=== PATIENT | male | born 1955 | race Caucasian/White ===

== ENCOUNTER 2024-07-13 19:26 | Inpatient (IN) | payer BC, SELFPAY ==
[2024-07-13 19:30] VITALS: BP 139/62; PULSE 70; RESP 16; TEMP 36.4; O2SAT 95
[2024-07-13 20:30] VITALS: BP 131/75; PULSE 74; RESP 18; TEMP 36.5; O2SAT 95
[2024-07-13 22:00] VITALS: PULSE 74; RESP 18; O2SAT 95
[2024-07-13] MEDS: Oxymetazoline 0.05% 1 SPRAY SPRAY.BTL 2 SPRAY NASAL (22:20)
[2024-07-13] MEDS: Atorvastatin Calcium 40 MG Tablet PO (22:20)
[2024-07-14 06:00] VITALS: BP 133/72; PULSE 70; RESP 16; TEMP 37.1; BMI 29.9
[2024-07-14 06:08] LABS: Absolute Lymphocyte Count 1.55 X10^3/uL (0.83-4.51); Absolute Neutrophil Count 5.2 X10^3/uL (2.0-7.7); Basophil# 0.05 X10^3/uL; Basophil% 0.6 % (0-1); Eosinophil# 0.11 X10^3/uL; Eosinophils% 1.4 % (0-5); Hematocrit 44.2 % (40-54); Hemoglobin 14.7 g/dL (13.0-16.5); Lymphocyte # 1.55 X10^3/ul (0.83-4.51); Lymphocyte % 19.6 % (19-41); Mean Corp Hgb Conc 33.3 g/dL (32-36); Mean Corpuscular Hgb 31.5 pg (27.0-32.0); Mean Corpuscular Volume 94.6 fL (80-94); Mean Platelet Vol. 10.3 fl (6.2-12.0); Monocyte# 0.98 X10^3/uL; Monocyte% 12.4 % (0-10); NRBC Flagged by Analyzer 0 % (0-5); Neutrophil # 5.17 X10^3/uL (2.7-7.7); Neutrophil % 65.5 % (47-70); Platelet Count 303 K/mm3 (150-450); RBC Distribution Width CV 12.9 % (11.6-14.6); RBC Distribution Width SD 44.9 fl (35.1-43.9); Red Blood Count 4.67 M/mm3 (4.6-6.2); White Blood Count 7.9 K/mm3 (4.4-11.0)
[2024-07-14 06:51] LABS: ALB/GLOB Ratio 0.8 RATIO (0.9-2.4); AST(SGOT) 44 U/L (15-37); Alanine Aminotransfer ALT/SGPT 76 U/L (16-61); Albumin, Serum 3.2 g/dL (3.2-5.0); Alkaline Phosphatase 239 U/L (45-117); Anion Gap 8 (5-15); BUN 30 mg/dL (7-18); BUN/Creat Ratio 26.1 RATIO (10-20); Chloride 101 mmol/L (98-107); Creatinine, Serum 1.15 mg/dL (0.70-1.30); EST Glomerular Filtration Rate 67 mL/min (>60); Est Glom Filt Rate - Afr Amer 81 mL/min (>60); Estimated Creatinine Clearance 59.77 ml/min; Globulin 4.2 g/dL (2.2-4.2); Glucose 105 mg/dL (74-106); Magnesium 2.6 mg/dL (1.6-2.6); Phosphorus 4.2 mg/dL (2.5-4.9); Potassium 4.2 mmol/L (3.5-5.1); Protein, Total 7.4 g/dL (6.4-8.2); Sodium Level 133 mmol/L (136-145)
[2024-07-14 08:31] VITALS: PULSE 70
[2024-07-14] MEDS: Enoxaparin 40 MG/0.4 ML Syringe SC (08:31)
[2024-07-14] MEDS: Lisinopril 10 MG Tablet PO (08:31)
[2024-07-14] MEDS: Clopidogrel Bisulfate 75 MG Tablet PO (08:31)
[2024-07-14] MEDS: Aspirin 81 MG TAB.CHEW PO (08:31)
[2024-07-14] MEDS: Metoprolol(XL)Succ 25 MG Tablet PO (08:31)
[2024-07-14 10:00] VITALS: PULSE 70; O2SAT 96
--- NOTE | 2024-07-14 12:16 | EX.PCM.HP.RE ---
HPI - General General Date of Admission: 07/13/24 Date of Service: 07/14/24 Chief Complaint: Post stroke debility HPI Narrative CISCO SAINI, is a 68 YO male with no significant PMH other than remote tobacco dependence (quit 1998 after 8 years of smoking) and on no RX medications who presented to an ED on 07/07/24 c/o sudden onset of R side weakness. He was unable to walk and could not lift his R arm. He had started feeling generally weak earlier in the day but,, did not have a WYATT and had no focal neurologic deficits. While in the ED his sx resolved. CT brain revealed no acute pathology. CTA of the head and neck showed no significant stenosis. Reportedly he had a very elevated troponin ( 526 initially in Ed and peaked at 646) but, EKG was negative for ischemia. Total cholesterol was 235 with an LDL of 174 and a HDL of 46. TRIG were WNL. HGBA1C was increased at 5.8%. He was started on a heparin drip and admitted to the hospital for TIA. He was also started on a statin and ASA. ECHO, MRI and cardiology consult was ordered. On 07/09/24 he reported worsening R side weakness and increased dysarthria. A repeat [place] CT brain on 07/09/24 showed a low attenuation lesion of the L periventricular white matter that was not reported on the first CT brain. MRI showed acute lacunar infarct in the L centrum semiovale. There was also a remote lacunar infarct with hemosiderin deposition in the adjacent L centrum semiovale. 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 LVEF was normal at 60%. ECHO showed no wall motion abnormalities. There was a PFO. While at [facility] he was seen by PT/OT/ST and recommendation was made for acute rehab at [place]. He was transferred to the acute inpt rehab unit at [facility] on 07/13/24 for 3 hours of therapy daily. CABG was discussed with him prior to DC from [facility] and he is to follow up with cardiology in 6-8 weeks. He has a PFO per the records we received. He did not have US of the LE's to R/O DVT but, he denied any swelling of the LE's, calf pain and hx of of DVT. Afebrile VSS -blood pressure has ranged from 131/75 to 139/62 since arrival on rehab. The heart rate is in the 70s. Maintaining appropriate oxygen saturation on RA-95% Oral intake - FOOD good Discussed with nursing - no problems that need addressed Reviewed the THERAPY notes Medication list reviewed. All lab drawn this morning was personally reviewed. CBC is unremarkable. Sodium is mildly decreased at 133 and the potassium is 4.2. The BUN is elevated at 30 with a creatinine of 1.15 and a GFR of 67. The BUN/creatinine ratio is 26.1. AST is elevated at 44, ALT is increased at 76 and the alkaline phosphatase is increased to 239. Bilirubin is within normal limits. Magnesium is 2.6 and phosphorus is normal. Calcium is normal. [facility] Medical History (Updated 07/14/24 @ 15:[address] Lorraine Meza DO) Excessive drinking alcohol CAD (coronary artery disease), [place] coronary artery Subsequent non-ST elevation (NSTEMI) myocardial infarction Ischemic cerebrovascular accident (CVA) PFO (patent foramen ovale) HTN (hypertension) HLD (hyperlipidemia) Tobacco dependence in remission Medical History no medical history Home Medications ?Medication ?Instructions ?Recorded ?Last Taken ?Type aspirin 81 mg chewable tablet 1 tab PO DAILY heart health 07/13/24 07/13/24 History atorvastatin 40 mg tablet 40 mg PO QHS cholesterol 07/13/24 07/12/24 History clopidogrel 75 mg tablet (Plavix) 75 mg PO DAILY afib 07/13/24 Unknown History lisinopril 10 mg tablet 10 mg PO DAILY blood pressure 07/13/24 07/13/24 History metoprolol succinate 25 mg 25 mg PO DAILY blood pressure 07/13/24 07/13/24 History tablet,extended release 24 hr oxymetazoline 0.05 % nasal spray 2 spray intranasal Q12H PRN 07/13/24 Unknown History (12 Hour Nasal Relief [place]) congestion Allergy/AdvReac Type Severity Reaction Status Date / Time No Known Allergies Allergy Verified 07/13/24 19:18 Family History (Updated 07/14/24 @ 13:[address] Lorraine Meza DO) Mother Alzheimer's dementia Carotid stenosis + hx of CEA Family History unable to obtain Surgical History (Updated 07/14/24 @ 13:[address] Lorraine Meza DO) History of tonsillectomy Surgical History no surgical history Social History (Updated 07/14/24 @ 13:[address] Lorraine Meza DO) household members: none housing: house number of children: 1 current occupational status: employed leisure activities: exercise Smoking Status: Former smoker Tobacco: How many years used: 8 how long ago did patient quit smoking: Smoked 1 pack/day x 8 years. Quit in 1998 alcohol intake: current alcohol intake frequency: 3 or more drinks per day Alcohol type: beer Previous attempts at quittin substance use type: does not use ROS Constitutional Constitutional: Reports weakness; Denies anorexia, change in weight, chills, fatigue, fever(s) or night sweats Eyes Eyes: Denies blurry vision, change in vision, eye pain or loss of vision ENT HEENT: Reports dysphagia; Denies abnormal hearing, headache(s), hearing loss, nasal congestion or sore throat Cardiovascular Cardiovascular: Denies chest pain, dyspnea on exertion, edema, lightheadedness, orthopnea, palpitations, paroxysmal nocturnal dyspnea or syncope Respiratory/Chest Respiratory/Chest: Denies cough, dyspnea, shortness of breath at rest, shortness of breath with exertion or wheezing Gastrointestinal Gastrointestinal: Denies abdominal pain, constipation, diarrhea, dyspepsia, hematemesis, hematochezia, nausea or vomiting Genitourinary Genitourinary: Denies dysuria, hematuria, nocturia, urinary frequency, urinary hesitancy, urinary incontinence or urinary urgency Musculoskeletal Musculoskeletal: Denies back pain, joint pain, joint swelling or neck pain Neurologic Neurologic: Reports focal weakness and paresthesias; Denies confusion, disequilibrium, dizziness, headache(s), seizures or tremor(s) Psychiatric Psychiatric: Denies anxiety, depression, homicidal ideation or suicidal ideation Endocrine Endocrinology: Denies change in body appearance, polydipsia or polyuria Hematologic/Lymphatic Hematologic/Lymphatic: Denies easy bleeding, easy bruising or lymphadenopathy Allergic/Immunologic Allergic/Immunologic: Denies rhinitis, eczemia or asthma Vital Signs Vital Signs Vital Signs: 07/13/24 19:30 07/13/24 20:30 07/13/24 22:00 Temperature 97.6 F L 97.7 F L Temperature Source Temporal Oral Pulse Rate 70 74 74 Pulse Strength Respiratory Rate 16 18 18 Respiratory Effort Normal Non-Labored Respiratory Depth Normal Respiratory Pattern Normal Blood Pressure 139/62 H 131/75 H Blood Pressure Mean 87 93 Blood Pressure Source Monitor Monitor Blood Pressure Position Semi-Fowlers Semi-Fowlers Blood Pressure Location Right Arm Left Arm Pulse Ox 95 95 95 Oxygen Delivery Method Room Air Room Air Room Air 07/14/24 06:00 07/14/24 08:13 07/14/24 08:31 Temperature 98.7 F Temperature Source Oral Pulse Rate 70 70 Pulse Strength Respiratory Rate 16 Respiratory Effort Respiratory Depth Respiratory Pattern Blood Pressure 133/72 H Blood Pressure Mean 92 Blood Pressure Source Monitor Blood Pressure Position Semi-Fowlers Blood Pressure Location Left Arm Pulse Ox Oxygen Delivery Method Room Air Room Air 07/14/24 10:11 Temperature Temperature Source Pulse Rate Pulse Strength Normal (2+) Respiratory Rate Respiratory Effort Respiratory Depth Respiratory Pattern Blood Pressure Blood Pressure Mean Blood Pressure Source Blood Pressure Position Blood Pressure Location Pulse Ox Oxygen Delivery Method Weight Weight: 180 lb 1.883 oz Body Mass Index (BMI) 29.9 Indicators for Scoring Admitted with or Primary Diagnosis of CVA/Stroke: Yes Hx of CVA/Stroke: Yes Modified [place] Score MRS Score at time of Evaluation: 4-Moderate/severe disability NIHSS NIHSS 1a. Level of Consciousness: Alert; keenly responsive 1b. LOC Questions: Answers BOTH questions correctly. 1c. LOC Commands: Performs both tasks correctly. 2. Best Gaze: Normal 3. Visual: No visual loss 4. Facial Palsy: Complete paralysis of one or both sides (R side. Can not tightly close the R eye and eyebrows do not elevate symmetrically) 5a. Left Arm: No drift; arm holds 90 (or 45) degrees for full 10 seconds 5b. Right Arm: No effort against gravity; arm falls 6a. Left Leg: No drift; leg holds 30-degree position for full 5 seconds 6b. Right Leg: Some effort against gravity; (hits bed) 7. Limb Ataxia: Absent (can not test R side due to profound weakness) 8. Sensory: [id number] sensory loss; (Decreased sensation in the RUE only) 9. Best Language: No aphasia; normal 10. Dysarthria: [id number] dysarthria; 11. Extinction and Inattention: No abnormality Total: 10 Stroke Questions Stroke Team Activated: No Physical Exam Const alert, oriented x3, no apparent distress and well nourished General Appearance: cooperative and well developed Orientation / Consciousness: Negative for confused HEENT normocephalic and head/scalp atraumatic HEENT Narrative: kartik has a white coating. He denies mouth pain and painful swallowing. No bad taste in his mouth Mouth: dry mucous membranes Eyes PERRL and EOMs intact bilaterally Eyes Narrative: No scleral icterus, no conjunctival injection, no discharge from the eyes, no mattering of the eyelashes. No visual field cuts. Neck No nodes and no carotid bruits Neck Narrative: Carotids have brisk upstroke and good pulse volume bilaterally General: trachea midline Resp normal respiratory effort Resp Narrative: Initially had a few coarse crackles in the bases posteriorly however after few breaths he was clear to auscultation. No conversational dyspnea. Cardio regular rate, regular rhythm, S1 normal heart sound, S2 normal heart sound, no murmurs, no rub and no gallops Cardio Narrative: No ectopy GI normal to inspection, nondistended, normoactive bowel sounds, soft to palpation and non-tender GI Narrative: No abdominal bruits Extremity normal capillary refill and no calf tenderness General Extremity: Negative for clubbing, cyanosis or edema Skin Skin Narrative: Has a few small erythematous areas on the buttocks/sacrum and the nurses have started Calmoseptine. General Skin Exam: no breakdown Rashes: no rashes Wounds: Negative for wounds noted Neuro Neuro Narrative: Has paralysis of the upper and lower right face. Lower face is more prominent than the upper face. The tongue deviates mildly to the right. Pupils are equal round and reactive to light. No visual field cuts. Intact sensation in the face. Was unable to do finger-nose or [id number] with the right side extremities due to profound weakness. No effort against gravity with the right upper extremity. Some effort against gravity with the right lower extremity however it hits the bed before count of 5. Negative for extinction. He has decreased sensation in the right upper extremity but sensation is intact everywhere else. He has moderate dysarthria and some drooling from the right corner of his mouth. No aphasia. Psych thought process normal, cooperative, affect normal and denies suicidal ideation Psych Narrative: Calm and makes good eye contact. Pleasant and talkative. Asked appropriate questions. Good modulation of his voice. Appearance: appropriate Attitude: No agitated Results Lab / Micro Data 07/14/24 05:51 07/14/24 05:51 Labs: Laboratory Results - last 24 hr 07/14/24 05:51: WBC 7.9, RBC 4.67, Hgb 14.7, Hct 44.2, MCV 94.6 H, MCH 31.5, MCHC 33.3, RDW Std Deviation 44.9 H, RDW Coeff of Nicole 12.9, Plt Count 303, MPV 10.3, Immature Gran % (Auto) 0.500, Neut % (Auto) 65.5, Lymph % (Auto) 19.6, [place] % (Auto) 12.4 H, Eos % (Auto) 1.4, Baso % (Auto) 0.6, Absolute Neuts (auto) 5.2, Absolute Lymphs (auto) 1.55, Nucleated RBC % 0, Sodium 133 L, Potassium 4.2, Chloride 101, Carbon Dioxide 24.0, Anion Gap 8, BUN 30 H, Creatinine 1.15, Estim Creat Clear Calc 59.77, Est GFR (MDRD) Af Amer 81, Est GFR (MDRD) Non-Af 67, BUN/Creatinine Ratio 26.1 H, Glucose 105, Calcium 9.0, Phosphorus 4.2, Magnesium 2.6, Total Bilirubin 0.90, AST 44 H, ALT 76 H, Alkaline Phosphatase 239 H, Total Protein 7.4, Albumin 3.2, Globulin 4.2, Albumin/Globulin Ratio 0.8 L Assessment & Plan Assessment/Plan (1) Physical debility: (2) Ischemic cerebrovascular accident (CVA): (3) Dysarthria: (4) Right hemiparesis: (5) Subsequent non-ST elevation (NSTEMI) myocardial infarction: (6) CAD (coronary artery disease), [place] coronary artery: QUALIFIERS: [place] vs. transplanted heart: [place] heart Associated angina: without angina Qualified Code(s): I25.10 - Atherosclerotic heart disease of [place] coronary artery without angina pectoris (7) Tobacco dependence in remission: (8) HLD (hyperlipidemia): QUALIFIERS: Hyperlipidemia type: pure hypercholesterolemia Qualified Code(s): E78.00 - Pure hypercholesterolemia, unspecified (9) HTN (hypertension): QUALIFIERS: Hypertension type: primary hypertension Qualified Code(s): I10 - Essential (primary) hypertension (10) PFO (patent foramen ovale): (11) Hyponatremia: (12) Abnormal LFTs: (13) Dehydration symptoms: PLAN: Plan PLAN PT for gait stability OT for ADL's ST for evaluation Analgesics as needed Bowel protocol Fall precautions Assess for Anxiety/Depression GI prophylaxis -not at this time. He has no nausea, vomiting, heartburn or epigastric pain and denies any history of peptic ulcer disease. DVT prophylaxis with Lovenox Follow up with PCP, cardiology, cardiothoracic surgery and neurology following DC from [facility] Rehab AM lab including CMP, CBC, Mag and Phos-all personally reviewed. NS at 100cc/hr for 2 liters due to dehydration, hyponatremia, increased BUN/CREAT ratio and c/o muscle cramping. Charges/Coding Visit Charges Inpatient E&M: 00919 Init Hosp L3
[2024-07-14] MEDS: Acetaminophen 325 MG Tablet 650 MG PO (13:59)
--- NOTE | 2024-07-14 15:31 | REHABEVAL_ITS ---
Admission Information Primary Diagnosis:: Post stroke debility Status Changes from Prescreening?: No changes Identified Actual Problem List:: Skin Intergrity, Alteration in Sleep, Mobility Impaired, Self Care Deficit, Know.Dfct/Disease Process, BP, Hypertension, Fluid Change- Dehydration and Alteration-Leisure Activ. Potential Problem List:: DVT, Bleeding, Infection, UTI, Aspiration, Falls, Skin Integrity and Depression Risk of Complications DVT: GERALDINE Hose and - (Lovenox) Bleeding: Monitor Lab Values, Nursing to Teach Precautions for anti-coagulation therapy., Wound, if applicable, to be assessed every shift. and Stroke patients assessed for lethargy or change in status. Infection: Clinical Staff to Monitor for S/S of infection: and S/S of infection include fever, redness, warmth, etc. Urinary Tract Infection: Monitor for frequency, burning, discomfort, or incontinence. and Nursing will obtain urine sample for urinalysis and C&S when ordered. Aspiration: Clinical staff will monitor for coughing, drooling, congestion., Speech will evaluate swallowing and dsyphasia. and Nursing will monitor patient swallowing during meals. Falls: Patient will be evaluated for Fall Precautions and Patient will be placed on Fall Precautions as indicated per protocol. Skin Breakdown: Nursing will assess skin daily using assessment tool. and Nursing will place on Skin Breakdown Precautions as indicated. Pain: Clinical staff will assess patient's pain level per protocol., Medications will be given, if needed, and the pain level reassessed. and Other methods: Massage, distraction, decrease stimulus, etc. used PRN. Plan of Care Patient requires physician specializing in physical medicine and rehab oversight to provide close medical supervision of rehab issues including: Pain Management, Sleep Problems, Bowel and Bladder, Medical and co-morbidity Management, DVT prophylaxis, Rehabilitation Leadership and Coordination of treatment team Patient needs Physical Therapy: For a minimum of 1 hour and At least 5 out of 7 days Patient needs Physical Therapy to improve:: Mobility, Strengthening, Transfers, Stretching, ROM, Endurance, Stairs, Gait and Balance Patient needs Occupational Therapy: For a minimum of 1 hour and At least 5 out of 7 days Patient needs Occupational Therapy to improve ADL's incl.: Eating, Grooming, Bathing, Dressing, Toileting, Toilet transfers, Community Reintegration, Higher functioning activities, Household tasks, Adaptive Equipment, Splinting and Other activities as determined Patient requires speech therapy: For a minimum of 1 hour and At least 5 out of 7 days Patient requires speech therapy for: Swallowing, Cognition, Language Skills and Compensatory Strategies Patient requires 24/ Rehabilitation Nursing for: Pain Issues, Identifying and preventing risk factors, Monitoring and reporting current medical conditions, Assisting with ambulation, transfer, and all ADL's, Teaching patients about disease process and medications, Family teaching, Providing safe environment, Bowel and Bladder Issues, Skin integrity and Medication Management Patient needs Automobile Spring Repairer/ Case Management for: Discharge Planning, Arranging Home Equipment or Services and Family Interventions Patient needs Dietary and Nutrition Services for: Adequate Nutrition, Nutritional Supplements and Nutritional Education Goals Goals Patient will remain: free from falls Patient will perform eating at: MOD I level of assist. Patient will perform bed mobility at: MOD I level of assist. Patient will complete transfers from bed to chair at: MOD I level of assist. Patient will ambulate: - (165 feet with least restrictive device at standby assist) Patient will complete upper body dressing at: Standby Assist. Patient will complete lower body dressing at: Standby Assist. (With adaptive equipment as needed.) Patient will complete toilet transfer at: Standby Assist. Patient will complete toileting at: Standby Assist. Patient will perform bathing at: - (Upper body bathing at min assist and lower body bathing at standby assist with adaptive equipment as needed.) Patient will perform Tub/Shower transfer at: - (Supervision using DME as needed to increase independence.) Patient will complete grooming at: - (Set up level while seated at the sink.) Patient will achieve: 12 stairs (With 1 handrail and the least restrictive device at standby assist to allow access to his basement/laundry.) Patient will have pain level of: of 3 or less Patient's skin will: remain intact Patient will receive: adequate nutrition. Discharge Planning Pt Prognosis for Sig. Practical Improv. w/in Reasonable Time: Good Estimated Length of stay (days): 28 Anticipated D/C Destination: Home w/ family or friends (With home health care) Was Preadmission Assessment Accurate?: Yes
[2024-07-14] MEDS: 0.9% Saline Lock 10 ML Syringe IV (15:50)
[2024-07-14] MEDS: 0.9% Normal Saline (1000mL) 1,000 ML 100 ML IV (15:59)
[2024-07-14] MEDS: Menthol/Lanolin/Calamine/Znox 113 GM Tube 1 APPLIC TOPICAL ×2 (16:00→21:23)
[2024-07-14 16:02] VITALS: BMI 29.9
[2024-07-14 18:00] VITALS: BP 122/72; PULSE 72; RESP 1; TEMP 36.6; O2SAT 97
[2024-07-14] MEDS: Loperamide 2 MG Capsule PO (20:22)
[2024-07-14] MEDS: Atorvastatin Calcium 40 MG Tablet PO (21:20)
[2024-07-15 01:55] VITALS: BMI 29.9
[2024-07-15] MEDS: 0.9% Normal Saline (1000mL) 1,000 ML 100 ML IV (02:18)
[2024-07-15] MEDS: Enoxaparin 40 MG/0.4 ML Syringe SC (05:40)
[2024-07-15 06:00] VITALS: BP 136/92; PULSE 75; RESP 18; TEMP 36.7; O2SAT 94
[2024-07-15 08:29] VITALS: PULSE 72
[2024-07-15] MEDS: Aspirin 81 MG TAB.CHEW PO (08:29)
[2024-07-15] MEDS: Clopidogrel Bisulfate 75 MG Tablet PO (08:29)
[2024-07-15] MEDS: Metoprolol(XL)Succ 25 MG Tablet PO (08:29)
[2024-07-15] MEDS: Lisinopril 10 MG Tablet PO (08:30)
[2024-07-15] MEDS: Menthol/Lanolin/Calamine/Znox 113 GM Tube 1 APPLIC TOPICAL ×2 (08:31→20:38)
[2024-07-15 08:35] VITALS: BP 119/71
[2024-07-15 12:42] VITALS: BMI 29.9
[2024-07-15] MEDS: 0.9% Saline Lock 10 ML Syringe IV (13:19)
[2024-07-15 18:00] VITALS: BP 117/67; PULSE 56; RESP 16; TEMP 36.6; O2SAT 96
[2024-07-15] MEDS: Atorvastatin Calcium 40 MG Tablet PO (20:38)
[2024-07-15 20:47] VITALS: BMI 29.9
[2024-07-15 22:00] VITALS: PULSE 55; RESP 16; O2SAT 95
[2024-07-16] MEDS: Enoxaparin 40 MG/0.4 ML Syringe SC (05:05)
[2024-07-16 05:13] VITALS: BP 133/70; PULSE 64; RESP 17; TEMP 36.6; O2SAT 95
[2024-07-16] MEDS: 0.9% Saline Lock 10 ML Syringe IV (05:17)
[2024-07-16] MEDS: Lisinopril 10 MG Tablet PO (07:50)
[2024-07-16 07:51] VITALS: PULSE 73
[2024-07-16] MEDS: Aspirin 81 MG TAB.CHEW PO (07:51)
[2024-07-16] MEDS: Clopidogrel Bisulfate 75 MG Tablet PO (07:51)
[2024-07-16] MEDS: Metoprolol(XL)Succ 25 MG Tablet PO (07:51)
[2024-07-16] MEDS: Menthol/Lanolin/Calamine/Znox 113 GM Tube 1 APPLIC TOPICAL ×2 (07:53→21:01)
[2024-07-16 14:08] VITALS: BMI 29.9
[2024-07-16 17:46] VITALS: O2SAT 94
[2024-07-16 18:00] VITALS: BP 110/67; PULSE 62; RESP 17; TEMP 36.6; O2SAT 94
[2024-07-16 20:36] VITALS: BMI 29.9
[2024-07-16] MEDS: Atorvastatin Calcium 40 MG Tablet PO (21:02)
[2024-07-16 22:00] VITALS: PULSE 62; RESP 16; O2SAT 96
[2024-07-17] MEDS: Enoxaparin 40 MG/0.4 ML Syringe SC (05:27)
[2024-07-17] MEDS: 0.9% Saline Lock 10 ML Syringe IV (05:28)
[2024-07-17 06:00] VITALS: BP 124/68; PULSE 54; RESP 16; TEMP 36.5; O2SAT 93
[2024-07-17 07:24] VITALS: O2SAT 93
[2024-07-17 07:43] VITALS: BP 124/68; PULSE 64
[2024-07-17] MEDS: Metoprolol(XL)Succ 25 MG Tablet PO (07:43)
[2024-07-17] MEDS: Lisinopril 10 MG Tablet PO (07:43)
[2024-07-17] MEDS: Clopidogrel Bisulfate 75 MG Tablet PO (07:43)
[2024-07-17] MEDS: Aspirin 81 MG TAB.CHEW PO (07:43)
[2024-07-17] MEDS: Menthol/Lanolin/Calamine/Znox 113 GM Tube 1 APPLIC TOPICAL ×2 (07:44→21:29)
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
[2024-07-17 13:04] VITALS: BMI 29.9
--- NOTE | 2024-07-17 13:07 | CASEMGMT ---
Social Work IDT met with patient and participated via phone call for Team meeting. Discussed patient's progress in PT/OT/ST/SN. Educated to [facility] insurance with NRD 8/ and continued stay is not guaranteed with each review. Pt was mod I prior to stroke, working full-time, and living alone. Pt's goal is to return closer to PLOF prior to DC. SW educated to Stroke Support Group and provided resources. SW will continue to follow for DC planning and support. Will ReTeam weekly. ESTELA AskewW
[2024-07-17 17:15] VITALS: BP 114/75; PULSE 67; RESP 17; TEMP 36.3; O2SAT 92
[2024-07-17] MEDS: Atorvastatin Calcium 40 MG Tablet PO (21:24)
[2024-07-17 23:29] VITALS: BMI 29.9
[2024-07-18 06:00] VITALS: BP 155/76; PULSE 65; RESP 17; TEMP 36.2; O2SAT 95
[2024-07-18] MEDS: Enoxaparin 40 MG/0.4 ML Syringe SC (06:32)
[2024-07-18 07:32] VITALS: PULSE 65
[2024-07-18] MEDS: Clopidogrel Bisulfate 75 MG Tablet PO (07:32)
[2024-07-18] MEDS: Aspirin 81 MG TAB.CHEW PO (07:32)
[2024-07-18] MEDS: Metoprolol(XL)Succ 25 MG Tablet PO (07:32)
[2024-07-18] MEDS: Menthol/Lanolin/Calamine/Znox 113 GM Tube 1 APPLIC TOPICAL ×2 (07:32→20:37)
[2024-07-18] MEDS: Lisinopril 10 MG Tablet PO (07:32)
[2024-07-18 08:02] LABS: Hematocrit 44.9 % (40-54); Hemoglobin 15.2 g/dL (13.0-16.5)
[2024-07-18 11:50] VITALS: BMI 29.9
[2024-07-18 11:52] LABS: ALB/GLOB Ratio 0.8 RATIO (0.9-2.4); AST(SGOT) 37 U/L (15-37); Alanine Aminotransfer ALT/SGPT 98 U/L (16-61); Albumin, Serum 3.3 g/dL (3.2-5.0); Alkaline Phosphatase 233 U/L (45-117); Anion Gap 10 (5-15); BUN 18 mg/dL (7-18); BUN/Creat Ratio 15.9 RATIO (10-20); Calcium,Total 10.1 mg/dL (8.5-10.1); Chloride 103 mmol/L (98-107); Creatinine, Serum 1.13 mg/dL (0.70-1.30); EST Glomerular Filtration Rate 68 mL/min (>60); Est Glom Filt Rate - Afr Amer 83 mL/min (>60); Estimated Creatinine Clearance 60.72 ml/min; Glucose 121 mg/dL (74-106); Protein, Total 7.3 g/dL (6.4-8.2); Sodium Level 136 mmol/L (136-145)
--- NOTE | 2024-07-18 12:04 | PN_ITS ---
Subjective Subjective Waldemar was seen on team rounds. His ex participated by phone. His son was unavailable to participate. Afebrile VSS -blood pressure is now within goal. Maintaining appropriate oxygen saturation on RA Oral intake - FOOD good FLUIDS good Discussed with nursing - no problems that need addressed Reviewed the THERAPY notes He is able to shrug the R shoulder today. Less facial droop. Able to do 3 hours a day of therapy. Working hard and making progress. Medication list reviewed. All lab was personally reviewed. Hemoglobin is 15.2 today with hematocrit of 44.9. Sodium is now normal at 136 and the potassium is stable at 4.0. The BUN is down to 18 with a stable creatinine of 1.13. AST is normal at 37 but the ALT is 98 and the alkaline phosphatase is 233. Bilirubin is normal. Waldemar denies shortness of breath, cough, cephalgia, lightheadedness, chest pain, palpitations, nausea/vomiting/abdominal pain, dysuria and calf tenderness. Objective Data Objective Data Vital Signs: Vital Signs Temp Pulse Resp BP Pulse Ox O2 Del Method 97.1 F L 65 17 155/76 H 95 Room Air 07/18/24 06:00 07/18/24 07:32 07/18/24 06:00 07/18/24 06:00 07/18/24 06:00 07/18/24 06:00 Oxygen Delivery Method Room Air Weight: 180 lb 1.883 oz Body Mass Index (BMI) 29.9 Intake & Output: Intake and Output for Last 24 Hours 07/16/24 07/17/24 07/18/24 23:59 23:59 23:59 Intake Total 1570 / 1570 2550 / 2850 570 / 570 Output Total 1850 / 1850 2800 / 3200 1150 / 1150 Balance -280 / -280 -250 / -350 -580 / -580 Lab / Micro Data 07/18/24 07:49 07/18/24 07:49 Labs: Laboratory Results - last 24 hr 07/18/24 07:49: Hgb 15.2, Hct 44.9, Sodium 136, Potassium 4.0, Chloride 103, Carbon Dioxide 23.0, Anion Gap 10, BUN 18, Creatinine 1.13, Estim Creat Clear Calc 60.72, Est GFR (MDRD) Af Amer 83, Est GFR (MDRD) Non-Af 68, BUN/Creatinine Ratio 15.9, Glucose 121 H, Calcium 10.1, Total Bilirubin 0.60, AST 37, ALT 98 H, Alkaline Phosphatase 233 H, Total Protein 7.3, Albumin 3.3, Globulin 4.0, A lbumin/Globulin Ratio 0.8 L Physical Exam Const alert, oriented x3 and no apparent distress Constitutional Narrative: Sitting in the recliner at the bedside. Pleasant and appropriate. Makes good eye contact with me when we speak. General Appearance: cooperative HEENT head/scalp atraumatic Mouth: dry mucous membranes Eyes Eyes Narrative: The R eye is not as droopy. Less facial droop. Able to close the R eye with more force. PERRL, EOMI, no visual field cuts. Neck supple Resp normal respiratory effort and clear to auscultation bilaterally Resp Narrative: No cough with deep breathing. Effort and Inspection: Negative for tachypneic Cardio regular rate, regular rhythm, no murmurs, no rub and no gallops Cardio Narrative: No ectopy GI normal to inspection, nondistended, normoactive bowel sounds, soft to palpation and non-tender GI Narrative: No guarding with palpation. Good appetite. Extremity no calf tenderness Extremity Narrative: mild edema of the fingers of the R hand. No ankle edema. 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 transplanted heart: [place] heart A ssociated angina: without angina Qualified Code(s): I25.10 - Atherosclerotic heart disease of [place] coronary artery without angina pectoris (8) Tobacco dependence in remission: (9) HLD (hyperlipidemia): QUALIFIERS: Hyperlipidemia type: pure hypercholesterolemia Q ualified Code(s): E78.00 - Pure hypercholesterolemia, unspecified (10) HTN (hypertension): QUALIFIERS: Hypertension type: primary hypertension Qualified Code(s): I10 - Essential (primary) hypertension (11) PFO (patent foramen ovale): (12) Hyponatremia: (13) Abnormal LFTs: PLAN: Plan !. Continue therapy...Making good progress in a short amount of time. 2. Continue dual antiplatelet agents and high intensity statin. 3. Will need a 30 day event monitor at DC. 4. will follow up with cardiology post DC from rehab. Needs CABG but, can not do surgery for at least 6 weeks after [place] and stroke. Charges/Coding Visit Charges Inpatient E&M: 28120 Subs Hosp L2
[2024-07-18 17:28] VITALS: BP 122/77; PULSE 57; RESP 18; TEMP 36.6; O2SAT 96
[2024-07-18] MEDS: Atorvastatin Calcium 40 MG Tablet PO (20:31)
[2024-07-19 05:20] VITALS: BP 108/72; PULSE 61; RESP 15; TEMP 36.5; O2SAT 94
[2024-07-19] MEDS: Enoxaparin 40 MG/0.4 ML Syringe SC (05:37)
[2024-07-19 08:14] VITALS: BP 108/72; PULSE 61
[2024-07-19] MEDS: Metoprolol(XL)Succ 25 MG Tablet PO (08:14)
[2024-07-19] MEDS: Clopidogrel Bisulfate 75 MG Tablet PO (08:14)
[2024-07-19] MEDS: Lisinopril 10 MG Tablet PO (08:14)
[2024-07-19] MEDS: Aspirin 81 MG TAB.CHEW PO (08:14)
[2024-07-19] MEDS: Menthol/Lanolin/Calamine/Znox 113 GM Tube 1 APPLIC TOPICAL ×2 (08:15→20:55)
[2024-07-19 15:33] VITALS: BMI 29.9
[2024-07-19 18:00] VITALS: BP 94/70; PULSE 66; RESP 15; TEMP 36.6; O2SAT 94
[2024-07-19 20:00] VITALS: PULSE 66; RESP 15; O2SAT 94
[2024-07-19 20:10] VITALS: BMI 29.9
[2024-07-19] MEDS: Atorvastatin Calcium 40 MG Tablet PO (20:54)
[2024-07-20 06:00] VITALS: BP 121/78; PULSE 66; RESP 16; TEMP 36.4; O2SAT 98
[2024-07-20] MEDS: Enoxaparin 40 MG/0.4 ML Syringe SC (06:34)
[2024-07-20] MEDS: Aspirin 81 MG TAB.CHEW PO (08:05)
[2024-07-20] MEDS: Menthol/Lanolin/Calamine/Znox 113 GM Tube 1 APPLIC TOPICAL ×2 (08:05→20:35)
[2024-07-20] MEDS: Clopidogrel Bisulfate 75 MG Tablet PO ×2 (08:05→08:06)
[2024-07-20 08:06] VITALS: BP 121/78; PULSE 66
[2024-07-20] MEDS: Metoprolol(XL)Succ 25 MG Tablet PO (08:06)
[2024-07-20] MEDS: Lisinopril 10 MG Tablet PO (08:07)
--- NOTE | 2024-07-20 10:56 | PN_ITS ---
Subjective Subjective Afebrile VSS - Maintaining appropriate oxygen saturation on RA Oral intake - FOOD good. Eating 75 to 100% of his meals FLUIDS variable. Fluid balance is negative every day however I am not sure we are capturing all his oral intake. BUN was 30 at admission and is down to 18 on Wednesday. Not on a diuretic. Good bowel function. Having a bowel movement daily. Discussed with nursing - no problems that need addressed. Sleeping well at night. Reviewed the THERAPY notes Medication list reviewed. Waldemar denies lightheadedness, cephalgia, chest pain, shortness of breath at rest or with exertion, abdominal pain, dysuria and calf tenderness. Denies nausea/vomiting/right upper quadrant pain. He feels that he is making progress and getting stronger. He has a little discomfort tin the R wrist. there is mild swelling of the hand but, he has a good pulse and the joint is not swollen or red. May just be due to return of some feeling in the RUE. Objective Data Objective Data Vital Signs: Vital Signs Temp Pulse Resp BP Pulse Ox O2 Del Method 97.6 F L 66 16 121/78 H 98 Room Air 07/20/24 06:00 07/20/24 08:06 07/20/24 06:00 07/20/24 08:06 07/20/24 06:00 07/20/24 10:00 Oxygen Delivery Method Room Air Weight: 180 lb 1.883 oz Body Mass Index (BMI) 29.9 Intake & Output: Intake and Output for Last 24 Hours 07/18/24 07/19/24 07/20/24 23:59 23:59 23:59 Intake Total 1830 / 1830 1040 / 1040 400 / 400 Output Total 2375 / 2375 1150 / 1150 700 / 700 Balance -545 / -545 -110 / -110 -300 / -300 Lab / Micro Data 07/18/24 07:49 07/18/24 07:49 Physical Exam Const alert, oriented x3 and no apparent distress Constitutional Narrative: Was working with OT when I saw him today. 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 General Appearance: cooperative HEENT moist oral mucous membranes HEENT Narrative: Tongue still deviates to the left when protruded. Eyes PERRL and EOMs intact bilaterally Eyes Narrative: No visual field cuts. Resp clear to auscultation bilaterally Effort and Inspection: Negative for tachypneic Cardio regular rate, regular rhythm, no murmurs, no rub and no gallops GI normal to inspection, nondistended, normoactive bowel sounds, soft to palpation and non-tender GI Narrative: No guarding with palpation. No pain with palpation of the RUQ. Extremity no calf tenderness General Extremity: Negative for edema Skin General Skin Exam: no breakdown Rashes: no rashes Neuro Neuro Narrative: Able to keep his R eye closed today without me being able to pull it open. Can raise the R eyebrow somewhat. Less droop to the R mouth. Tongue still deviates to the R when protruded. Speech is more crisp and with less slurring. Voice is projecting better. Psych cooperative and affect normal Psych Narrative: Sleeping well at night and eating 75-100% of all his meals. Appropriate and pleasant. Good interaction with the staff. 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 transplanted heart: [place] heart Qualified Code(s): I25.10 - Atherosclerotic heart disease of [place] coronary artery without angina pectoris (8) Tobacco dependence in remission: (9) HLD (hyperlipidemia): QUALIFIERS: Hyperlipidemia type: pure hypercholesterolemia Q ualified Code(s): E78.00 - Pure hypercholesterolemia, unspecified (10) HTN (hypertension): QUALIFIERS: Hypertension type: primary hypertension Qualified Code(s): I10 - Essential (primary) hypertension (11) PFO (patent foramen ovale): (12) Abnormal LFTs: PLAN: Liver should be imaged as an OP and additional evaluation for LFT's done. PLAN: Plan 1. Continue therapy 2. Completed peer to peer today with insurance and he is approved to the and then will want additional update on his progress. 3. Repeat BMP on Wednesday. 4. change the weights to Q 72H 5. Encouraged good fluid intake. 6. discussed goals for treatment of pts with strokes. STRESSED importance of regular PCP follow up and importance of health maintenance.....can not just go the doctor only if you are sick. 7. Needs a lipid panel and liver panel in 4 weeks. Charges/Coding Visit Charges Inpatient E&M: 27832 Subs Hosp L2
--- NOTE | 2024-07-20 12:56 | CASEMGMT ---
Addendum entered by Anne Lewis 07/20/24 14:25: [facility] denied. [facility] reviewing. [facility] can accept. Original Note: Social Work Insurance issued LCD 07/20, DC 07/21 and offered P2P option. SW spoke with , who agreed to complete P2P. P2P completed and won - NRD 07/26. SW updated pt, however, broached DC planning. Pt aware he cannot DC home alone. SW educated to SNF option and precert process. Pt agreeable to SNF and prefers [facility]. SW offered to refer to all 4 SNFs. Pt agreed. SW sent referrals via [facility] to [facility], [facility], [facility] and [facility]. Anne Lewis, ESTELA SAAVEDRAW
[2024-07-20 13:45] VITALS: BMI 30.3
[2024-07-20 18:00] VITALS: BP 113/78; PULSE 71; RESP 16; TEMP 36.4; O2SAT 96
[2024-07-20 20:00] VITALS: PULSE 71; RESP 16; O2SAT 96; BMI 30.3
[2024-07-20] MEDS: Atorvastatin Calcium 40 MG Tablet PO (20:35)
--- NOTE | 2024-07-21 03:24 | NURSING ---
REVIEWED AND AGREE WITH Melvin BERNAL, DOCUMENTATION AND ASSESSMENT CHARTING
[2024-07-21] MEDS: Enoxaparin 40 MG/0.4 ML Syringe SC (05:11)
[2024-07-21 06:00] VITALS: BP 132/59; PULSE 66; RESP 16; TEMP 36.6; O2SAT 96; BMI 29.8
[2024-07-21] MEDS: Aspirin 81 MG TAB.CHEW PO (08:23)
[2024-07-21 08:24] VITALS: PULSE 66
[2024-07-21] MEDS: Metoprolol(XL)Succ 25 MG Tablet PO (08:24)
[2024-07-21] MEDS: Lisinopril 10 MG Tablet PO (08:24)
[2024-07-21] MEDS: Menthol/Lanolin/Calamine/Znox 113 GM Tube 1 APPLIC TOPICAL ×2 (08:25→21:25)
[2024-07-21 17:00] VITALS: BMI 29.8
[2024-07-21 18:00] VITALS: BP 116/63; PULSE 64; RESP 16; TEMP 36.8; O2SAT 92
[2024-07-21 21:20] VITALS: PULSE 64; RESP 16; BMI 29.8
[2024-07-21] MEDS: Atorvastatin Calcium 40 MG Tablet PO (21:25)
--- NOTE | 2024-07-22 03:56 | NURSING ---
Reviewed and agree with Melvin BERNAL, documentation and assessment charting.
[2024-07-22] MEDS: Acetaminophen 325 MG Tablet 650 MG PO (04:33)
[2024-07-22] MEDS: Enoxaparin 40 MG/0.4 ML Syringe SC (04:46)
[2024-07-22 05:30] VITALS: BMI 29.5
[2024-07-22 05:36] VITALS: BP 116/76; PULSE 60; RESP 16; TEMP 36.7; O2SAT 94
[2024-07-22 08:39] VITALS: PULSE 60
[2024-07-22] MEDS: Aspirin 81 MG TAB.CHEW PO (08:39)
[2024-07-22] MEDS: Lisinopril 10 MG Tablet PO (08:39)
[2024-07-22] MEDS: Clopidogrel Bisulfate 75 MG Tablet PO (08:39)
[2024-07-22] MEDS: Metoprolol(XL)Succ 25 MG Tablet PO (08:39)
[2024-07-22] MEDS: Menthol/Lanolin/Calamine/Znox 113 GM Tube 1 APPLIC TOPICAL ×2 (08:40→19:56)
[2024-07-22 14:53] VITALS: BMI 29.5
[2024-07-22 17:49] VITALS: BP 114/65; PULSE 67; RESP 18; TEMP 36.6; O2SAT 93
[2024-07-22] MEDS: Atorvastatin Calcium 40 MG Tablet PO (19:55)
[2024-07-22 23:10] VITALS: BMI 29.5
[2024-07-23] MEDS: Acetaminophen 325 MG Tablet 650 MG PO (01:51)
[2024-07-23] MEDS: Enoxaparin 40 MG/0.4 ML Syringe SC (05:47)
[2024-07-23 05:49] VITALS: BP 101/62; PULSE 58; RESP 18; TEMP 36.8; O2SAT 97
[2024-07-23 05:54] VITALS: BMI 29.4
[2024-07-23 08:32] VITALS: PULSE 62
[2024-07-23] MEDS: Aspirin 81 MG TAB.CHEW PO (08:32)
[2024-07-23] MEDS: Clopidogrel Bisulfate 75 MG Tablet PO (08:32)
[2024-07-23] MEDS: Metoprolol(XL)Succ 25 MG Tablet PO (08:32)
[2024-07-23] MEDS: Menthol/Lanolin/Calamine/Znox 113 GM Tube 1 APPLIC TOPICAL ×2 (08:33→20:35)
[2024-07-23] MEDS: Lisinopril 10 MG Tablet PO (08:33)
[2024-07-23 14:13] VITALS: BMI 29.4
[2024-07-23 17:46] VITALS: BP 114/74; PULSE 710; RESP 16; TEMP 36.3; O2SAT 100
[2024-07-23] MEDS: Atorvastatin Calcium 40 MG Tablet PO (20:33)
[2024-07-23 22:00] VITALS: BMI 29.4
[2024-07-24] MEDS: Enoxaparin 40 MG/0.4 ML Syringe SC (05:08)
[2024-07-24 05:12] VITALS: BP 115/58; PULSE 60; RESP 17; TEMP 36.6; O2SAT 95
[2024-07-24 05:17] VITALS: BMI 29.3
[2024-07-24 07:54] VITALS: BP 115/58; PULSE 60
[2024-07-24] MEDS: Aspirin 81 MG TAB.CHEW PO (07:54)
[2024-07-24] MEDS: Senna/Docusate Sodium 1 Tablet 2 TABLET PO (07:54)
[2024-07-24] MEDS: Clopidogrel Bisulfate 75 MG Tablet PO (07:54)
[2024-07-24] MEDS: Metoprolol(XL)Succ 25 MG Tablet PO (07:54)
[2024-07-24] MEDS: Lisinopril 10 MG Tablet PO (07:54)
[2024-07-24] MEDS: Menthol/Lanolin/Calamine/Znox 113 GM Tube 1 APPLIC TOPICAL ×2 (07:54→21:15)
[2024-07-24 14:24] VITALS: BMI 29.3
[2024-07-24 18:00] VITALS: BP 115/52; PULSE 15; RESP 61; TEMP 36.4; O2SAT 96
[2024-07-24] MEDS: Atorvastatin Calcium 40 MG Tablet PO (21:14)
[2024-07-25 05:26] VITALS: BP 141/71; PULSE 63; RESP 15; TEMP 36.4
[2024-07-25 05:30] VITALS: BMI 29.5
[2024-07-25] MEDS: Enoxaparin 40 MG/0.4 ML Syringe SC (05:34)
[2024-07-25 08:02] VITALS: BP 141/71; PULSE 63
[2024-07-25] MEDS: Metoprolol(XL)Succ 25 MG Tablet PO (08:02)
[2024-07-25] MEDS: Lisinopril 10 MG Tablet PO (08:03)
[2024-07-25] MEDS: Aspirin 81 MG TAB.CHEW PO (08:03)
[2024-07-25] MEDS: Menthol/Lanolin/Calamine/Znox 113 GM Tube 1 APPLIC TOPICAL ×2 (08:03→20:30)
[2024-07-25] MEDS: Clopidogrel Bisulfate 75 MG Tablet PO (08:03)
--- NOTE | 2024-07-25 09:56 | PN_ITS ---
Subjective Subjective Waldemar was seen on team rounds today. His ex- Pearl participated by phone. Neither I nor the SW has been able to talk with son Ghanshyam. Afebrile VSS -blood pressure is for the most part at goal. Heart rate is within normal limits. Maintaining appropriate oxygen saturation on RA Oral intake - FOOD good FLUIDS has fallen off the past few days. Weight has dropped from 182 pounds at admission to rehab to 177 pounds and 11 ounces today. Discussed with nursing - no problems that need addressed. Sleeping well at night. Reviewed the THERAPY notes Medication list reviewed. He is a little down due to his situation.....having to go to SNF, probably having to sign up for Medicare which he did not want to have to do, worrying about the upcoming bypass surgery and will he be able to be independent again and return to work which is what he would like to do. Eating well and sleeping well. Motivated to do therapy and get better. Tearful at times. Denies lightheadedness, cephalgia, palpitations, chest pain, shortness of breath at rest, orthopnea, nausea/vomiting/epigastric pain, dysuria and calf tenderness. The pain he was having in the right upper extremity at the wrist seems to have resolved since last week. He is having some CASTELLANOS but, denies chest tightness. We talked about Medicare. I explained that between the recovery from the stroke and recovery from CABG coming up he will likely not be able to work for the next year.....this was a surprise to him. He is making good progress but, not as quickly as he would like. He is OK with going to [facility] and knows he needs help. Objective Data Objective Data Vital Signs: Vital Signs Temp Pulse Resp BP Pulse Ox O2 Del Method 97.6 F L 63 15 141/71 H 96 Room Air 07/25/24 05:26 07/25/24 08:02 07/25/24 05:26 07/25/24 08:02 07/24/24 18:00 07/25/24 05:26 Oxygen Delivery Method Room Air Weight: 177 lb 11.081 oz Body Mass Index (BMI) 29.5 Intake & Output: Intake and Output for Last 24 Hours 07/23/24 07/24/24 07/25/24 23:59 23:59 23:59 Intake Total 1740 / 1740 1220 / 1220 480 / 480 Output Total 2850 / 2850 1600 / 1825 475 / 475 Balance -1110 / -1110 -380 / -605 Lab / Micro Data 07/18/24 07:49 07/18/24 07:49 Physical Exam Const alert, oriented x3 and no apparent distress Constitutional Narrative: sitting in the recliner at the bedside. tearful at times when we are talking about what the immediate future looks like. Talkative and pleasant. Interacts with staff well General Appearance: cooperative HEENT HEENT Narrative: Encouraged him to increase fluid intake. Mouth: dry mucous membranes Eyes PERRL and EOMs intact bilaterally Resp normal respiratory effort, normal air movement and clear to auscultation bilaterally Cardio regular rate, regular rhythm, no murmurs and no gallops GI normal to inspection, nondistended, normoactive bowel sounds, soft to palpation and non-tender Extremity no calf tenderness General Extremity: Negative for edema Skin General Skin Exam: no breakdown Rashes: no rashes Neuro Neuro Narrative: Able to hold the R eye closed against resistance somewhat now. He was not able to do this at admission. He can raise the R eyebrow even with the left now......not able to do this at admission. Still with R facial droop but, less pronounced. Drool is less prominent. He can lift the RUE off the bed and hold it up for a few secs. Ab le to steamblaster with the R hand now.......weak but, had no steamblaster at admission. Still with R foot drop. Has weakness RLE but, this is improving. He was able to do the TUG today for the first time and he was able to advance the RLE without assist today. TUG done in 87 sec. Psych Psych Narrative: occasionally tearful about his situation but, not clinically depressed at this time. We discussed the sx of depression and he will let me know if any of these develop. 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 transplanted heart: [place] heart A ssociated angina: without angina Qualified Code(s): I25.10 - Atherosclerotic heart disease of [place] coronary artery without angina pectoris (8) Tobacco dependence in remission: (9) HLD (hyperlipidemia): QUALIFIERS: Hyperlipidemia type: pure hypercholesterolemia Q ualified Code(s): E78.00 - Pure hypercholesterolemia, unspecified (10) HTN (hypertension): QUALIFIERS: Hypertension type: primary hypertension Qualified Code(s): I10 - Essential (primary) hypertension (11) PFO (patent foramen ovale): (12) Abnormal LFTs: (13) Dyspnea on exertion: PLAN: Plan 1. Continue therapy 2. Recheck a BMP in the AM. 3. will need 24/ care at ID and is not safe to be alone. He is agreeable to transfer to [facility] at ID for continued PT/OT/ST. 4. The CASTELLANOS he complained to me about today is concerning. He has known multivessel CAD and needs to have CABG going forward. Will examine him tomorrow when he is working with PT and check the heart rhythm and his BS's.......He did not have CP or SOB with recent NSTEMI......only fatigue. Will get a EKG in the AM and possible repeat with exercise tomorrow. Charges/Coding Visit Charges Inpatient E&M: 64467 Subs Hosp L2
--- NOTE | 2024-07-25 11:15 | CASEMGMT ---
Social Work IDT met with patient and conference call with ex- for Team meeting. Discussed patient's progress in PT/OT/ST/SN. Educated to [employer] insurance with NRD 07/26 and continued stay is not guaranteed with each review. SW updated pt that [facility] is the only accepting SNF from [facility]. Offered to place referrals to [place]. IDT is continuing to recommend a SNF at DC. Educated to precert process and OOP liability. Pt expressed understanding and agreed to [facility], when needed. SW will continue to follow for DC planning. Anne Lewis, AIR TECHNICIAN CONTRACT FORESTER
[2024-07-25 16:29] VITALS: BMI 29.5
--- NOTE | 2024-07-25 17:14 | EKG12_ITS ---
Test Reason : CAD/ASHD Blood Pressure : / mmHG Vent. Rate : 069 BPM Atrial Rate : 069 BPM P-R Int : 152 ms QRS Dur : 090 ms QT Int : 390 ms P-R-T Axes : 054 017 029 degrees QTc Int : 417 ms Normal sinus rhythm Normal ECG No previous ECGs available Confirmed by SUNITHA GARCIA, JOE ([id number]), news editor ELI LU ([id number]) on 07/26/2024 1:13:11 PM Referred By: CARRILLO Confirmed By:JOE HELTON MD
[2024-07-25 18:00] VITALS: BP 97/69; PULSE 70; RESP 16; TEMP 36.5; O2SAT 95
[2024-07-25] MEDS: Atorvastatin Calcium 40 MG Tablet PO (20:30)
[2024-07-26 01:32] VITALS: BMI 29.5
[2024-07-26] MEDS: Enoxaparin 40 MG/0.4 ML Syringe SC (05:53)
[2024-07-26 05:57] VITALS: BP 130/73; PULSE 63; RESP 16; TEMP 36.1; O2SAT 96
[2024-07-26 06:00] VITALS: BMI 29.7
[2024-07-26 07:07] LABS: Anion Gap 4 (5-15); BUN 21 mg/dL (7-18); BUN/Creat Ratio 17.9 RATIO (10-20); Calcium,Total 9.7 mg/dL (8.5-10.1); Chloride 104 mmol/L (98-107); Creatinine, Serum 1.17 mg/dL (0.70-1.30); EST Glomerular Filtration Rate 66 mL/min (>60); Est Glom Filt Rate - Afr Amer 79 mL/min (>60); Estimated Creatinine Clearance 58.27 ml/min; Glucose 97 mg/dL (74-106); Potassium 4.8 mmol/L (3.5-5.1); Sodium Level 137 mmol/L (136-145)
[2024-07-26 07:58] VITALS: PULSE 63
[2024-07-26] MEDS: Lisinopril 10 MG Tablet PO (07:58)
[2024-07-26] MEDS: Aspirin 81 MG TAB.CHEW PO (07:58)
[2024-07-26] MEDS: Clopidogrel Bisulfate 75 MG Tablet PO (07:58)
[2024-07-26] MEDS: Metoprolol(XL)Succ 25 MG Tablet PO (07:58)
[2024-07-26] MEDS: Menthol/Lanolin/Calamine/Znox 113 GM Tube 1 APPLIC TOPICAL ×2 (07:59→21:08)
[2024-07-26 11:12] VITALS: BMI 29.7
--- NOTE | 2024-07-26 15:05 | PN_ITS ---
Subjective Subjective Afebrile VSS - Maintaining appropriate oxygen saturation on RA Oral intake - FOOD good FLUIDS adequate Discussed with nursing - no problems that need addressed Reviewed the THERAPY notes Medication list reviewed. Denies dyspnea today either at rest or with exertion. Also denies chest tightness and palpitations. I reviewed the EKG from last night and he has normal sinus rhythm with no ST segment depression or elevation. There is no ectopy. QTc is within normal limits. Denies CASTELLANOS today and therapists said he did well in therapy. Denies palpitations. CASTELLANOS seems to happen more so with longer ambulation/stairs. Anginal equivalent? Objective Data Objective Data Vital Signs: Vital Signs Temp Pulse Resp BP Pulse Ox O2 Del Method 96.9 F L 63 16 130/73 H 96 Room Air 07/26/24 05:57 07/26/24 07:58 07/26/24 05:57 07/26/24 05:57 07/26/24 05:57 07/26/24 05:57 Oxygen Delivery Method Room Air Weight: 178 lb 12.718 oz Body Mass Index (BMI) 29.7 Intake & Output: Intake and Output for Last 24 Hours 07/24/24 07/25/24 07/26/24 23:59 23:59 23:59 Intake Total 1220 / 1220 600 / 800 1520 / 1520 Output Total 1600 / 1825 1175 / 1625 1300 / 1300 Balance -380 / -605 -575 / -825 220 / 220 Lab / Micro Data 07/18/24 07:49 07/26/24 05:13 Labs: Laboratory Results - last 24 hr 07/26/24 05:13: Sodium 137, Potassium 4.8, Chloride 104, Carbon Dioxide 29.0, A nion Gap 4 L, BUN 21 H, Creatinine 1.17, Estim Creat Clear Calc 58.27, Est GFR (MDRD) Af Amer 79, Est GFR (MDRD) Non-Af 66, BUN/Creatinine Ratio 17.9, Glucose 97, Calcium 9.7 Physical Exam Const alert, oriented x3 and no apparent distress Constitutional Narrative: sitting in the recliner at the bedside. tearful at times when we are talking about what the immediate future looks like. Talkative and pleasant. Interacts with staff well General Appearance: cooperative Orientation / Consciousness: Negative for confused HEENT normocephalic, head/scalp atraumatic and moist oral mucous membranes Eyes PERRL and EOMs intact bilaterally Eyes Narrative: No visual field cuts. Neck supple, No nodes and no carotid bruits Neck Narrative: Carotids have brisk upstroke and good pulse volume bilaterally General: trachea midline Resp normal respiratory effort, normal air movement and clear to auscultation bilaterally Resp Narrative: No cough with deep breathing. Effort and Inspection: Negative for tachypneic Cardio regular rate, regular rhythm, no murmurs and no gallops Cardio Narrative: No ectopy GI normal to inspection, nondistended, normoactive bowel sounds, soft to palpation and non-tender GI Narrative: No guarding with palpation. No pain with palpation of the RUQ. Extremity no calf tenderness Extremity Narrative: mild edema of the fingers of the R hand. No ankle edema. General Extremity: Negative for edema Skin Skin Narrative: Has a few small erythematous areas on the buttocks/sacrum and the nurses have started Calmoseptine. General Skin Exam: no breakdown Rashes: no rashes Wounds: Negative for wounds noted Neuro Neuro Narrative: Able to hold the R eye closed against resistance somewhat now. He was not able to do this at admission. He can raise the R eyebrow even with the left now......not able to do this at admission. Still with R facial droop but, less pronounced. Drool is less prominent. He can lift the RUE off the bed and hold it up for a few secs. Ab le to produce assistant with the R hand now.......weak but, had no produce assistant at admission. Still with R foot drop. Has weakness RLE but, this is improving. He was able to do the TUG today for the first time and he was able to advance the RLE without assist today. TUG done in 87 sec. Psych thought process normal, cooperative, affect normal and denies suicidal ideation Psych Narrative: occasionally tearful about his situation but, not clinically depressed at this time. We discussed the sx of depression and he will let me know if any of these develop. 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 transplanted heart: [place] heart A ssociated angina: without angina Qualified Code(s): I25.10 - Atherosclerotic heart disease of [place] coronary artery without angina pectoris (8) HTN (hypertension): QUALIFIERS: Hypertension type: primary hypertension Qualified Code(s): I10 - Essential (primary) hypertension (9) PFO (patent foramen ovale): (10) Abnormal LFTs: PLAN: Liver should be imaged as an OP and additional evaluation for LFT's done. (11) Dyspnea on exertion: PLAN: Anginal equivalent? COPD? Not wheezing. Has known multivessel CAD and is going to need CABG. Has follow up scheduled with cardiology PLAN: Plan 1. Continue therapy 2. Add Nitro-Dur patch 0.1 mg daily 3. Try and get an EKG when he is having dyspnea on exertion. 4. Continues to make good progress with therapy. Will need SNF at discharge. Would like to keep him a few more days to see if the nitro patch helps with his dyspnea on exertion. Charges/Coding Visit Charges Inpatient E&M: 74196 Subs Hosp L1
[2024-07-26 17:48] VITALS: BP 91/62; PULSE 62; RESP 16; TEMP 36.5; O2SAT 96
[2024-07-26 20:20] VITALS: PULSE 62; RESP 16; O2SAT 96; BMI 29.7
[2024-07-26] MEDS: Atorvastatin Calcium 40 MG Tablet PO (21:08)
[2024-07-27] MEDS: Enoxaparin 40 MG/0.4 ML Syringe SC (05:56)
[2024-07-27 06:00] VITALS: BP 114/75; PULSE 70; RESP 16; TEMP 36.4; O2SAT 93; BMI 29.3
[2024-07-27] MEDS: Clopidogrel Bisulfate 75 MG Tablet PO (08:12)
[2024-07-27] MEDS: Aspirin 81 MG TAB.CHEW PO (08:12)
[2024-07-27 08:13] VITALS: BP 114/75; PULSE 70
[2024-07-27] MEDS: Metoprolol(XL)Succ 25 MG Tablet PO (08:13)
[2024-07-27] MEDS: Lisinopril 10 MG Tablet PO (08:13)
[2024-07-27] MEDS: Menthol/Lanolin/Calamine/Znox 113 GM Tube 1 APPLIC TOPICAL ×2 (09:23→20:42)
[2024-07-27 16:44] VITALS: BMI 29.3
[2024-07-27 18:00] VITALS: BP 108/72; PULSE 72; RESP 17; TEMP 36.4; O2SAT 94
[2024-07-27 19:40] VITALS: PULSE 72; RESP 17; O2SAT 94; BMI 29.3
[2024-07-27] MEDS: Atorvastatin Calcium 40 MG Tablet PO (20:41)
[2024-07-28] VITALS (8 sets, daily range): BP systolic 87–113; BP diastolic 54–69; PULSE 65–77; RESP 16–18; TEMP 36.4–36.7; O2SAT 92–96; BMI 29.9
[2024-07-28] MEDS: Enoxaparin 40 MG/0.4 ML Syringe SC (04:50)
[2024-07-28] MEDS: Menthol/Lanolin/Calamine/Znox 113 GM Tube 1 APPLIC TOPICAL ×2 (08:42→21:00)
[2024-07-28] MEDS: Clopidogrel Bisulfate 75 MG Tablet PO (08:42)
[2024-07-28] MEDS: Metoprolol(XL)Succ 25 MG Tablet PO (08:42)
[2024-07-28] MEDS: Aspirin 81 MG TAB.CHEW PO (08:42)
[2024-07-28] MEDS: Lisinopril 10 MG Tablet PO (08:43)
[2024-07-28] MEDS: Nystatin Powder 15gm Bottle 1 APPLIC TOPICAL ×2 (08:44→21:00)
[2024-07-28] MEDS: Nitroglycerin 0.1 MG Patch TD (10:53)
[2024-07-28] MEDS: 0.9% Normal Saline (1000mL) 1,000 ML 500 ML IV (17:08)
[2024-07-28] MEDS: 0.9% Normal Saline (1000mL) 1,000 ML 75 ML IV (19:50)
[2024-07-28] MEDS: Oxymetazoline 0.05% 1 SPRAY SPRAY.BTL 2 SPRAY NASAL (20:58)
[2024-07-28] MEDS: Atorvastatin Calcium 40 MG Tablet PO (21:01)
[2024-07-29 05:30] VITALS: BP 104/78; BP 111/72; BP 82/56; PULSE 58; PULSE 66; PULSE 80
[2024-07-29] MEDS: Enoxaparin 40 MG/0.4 ML Syringe SC (05:40)
[2024-07-29 05:41] VITALS: BP 111/72; PULSE 66
[2024-07-29] MEDS: Nitroglycerin 0.1 MG Patch TD (05:41)
[2024-07-29 06:00] VITALS: PULSE 92; RESP 16; TEMP 36.6; O2SAT 93
[2024-07-29 07:26] LABS: Hematocrit 40.1 % (40-54); Hemoglobin 13.1 g/dL (13.0-16.5); Mean Corp Hgb Conc 32.7 g/dL (32-36); Mean Corpuscular Hgb 30.9 pg (27.0-32.0); Mean Corpuscular Volume 94.6 fL (80-94); Mean Platelet Vol. 10.3 fl (6.2-12.0); Platelet Count 247 K/mm3 (150-450); RBC Distribution Width CV 12.4 % (11.6-14.6); RBC Distribution Width SD 43.5 fl (35.1-43.9); Red Blood Count 4.24 M/mm3 (4.6-6.2); White Blood Count 7.2 K/mm3 (4.4-11.0)
[2024-07-29 07:49] LABS: Anion Gap 3 (5-15); BUN 16 mg/dL (7-18); BUN/Creat Ratio 14.5 RATIO (10-20); Chloride 108 mmol/L (98-107); EST Glomerular Filtration Rate 70 mL/min (>60); Est Glom Filt Rate - Afr Amer 85 mL/min (>60); Estimated Creatinine Clearance 62.45 ml/min; Glucose 95 mg/dL (74-106); Potassium 4.3 mmol/L (3.5-5.1); Sodium Level 137 mmol/L (136-145)
[2024-07-29] MEDS: Aspirin 81 MG TAB.CHEW PO (08:01)
[2024-07-29 08:02] VITALS: PULSE 92
[2024-07-29] MEDS: Nystatin Powder 15gm Bottle 1 APPLIC TOPICAL ×2 (08:02→20:30)
[2024-07-29] MEDS: Clopidogrel Bisulfate 75 MG Tablet PO (08:02)
[2024-07-29] MEDS: Menthol/Lanolin/Calamine/Znox 113 GM Tube 1 APPLIC TOPICAL ×2 (08:02→20:31)
[2024-07-29] MEDS: Metoprolol(XL)Succ 25 MG Tablet PO (08:02)
[2024-07-29] MEDS: Lisinopril 5 MG Tablet PO (08:02)
[2024-07-29] MEDS: Senna/Docusate Sodium 1 Tablet 2 TABLET PO (08:06)
[2024-07-29] MEDS: 0.9% Normal Saline (1000mL) 1,000 ML 75 ML IV ×2 (09:10→22:25)
[2024-07-29] MEDS: Sertraline 50 MG Tablet PO (11:18)
[2024-07-29 18:00] VITALS: BP 104/64; PULSE 64; RESP 16; TEMP 36.6; O2SAT 93
[2024-07-29] MEDS: Atorvastatin Calcium 40 MG Tablet PO (20:30)
[2024-07-30] MEDS: Oxymetazoline 0.05% 1 SPRAY SPRAY.BTL 2 SPRAY NASAL (03:44)
[2024-07-30] MEDS: Enoxaparin 40 MG/0.4 ML Syringe SC (05:52)
[2024-07-30 05:56] VITALS: BP 117/77; PULSE 69
[2024-07-30] MEDS: Nitroglycerin 0.1 MG Patch TD (05:56)
[2024-07-30 05:59] VITALS: BP 117/77; PULSE 69; RESP 18; TEMP 36.9; O2SAT 94
[2024-07-30 06:00] VITALS: BMI 30.1
[2024-07-30] MEDS: Lisinopril 5 MG Tablet PO (08:34)
[2024-07-30] MEDS: Clopidogrel Bisulfate 75 MG Tablet PO (08:34)
[2024-07-30] MEDS: Aspirin 81 MG TAB.CHEW PO (08:34)
[2024-07-30] MEDS: Sertraline 50 MG Tablet PO (08:34)
[2024-07-30 08:35] VITALS: BP 102/65; PULSE 81
[2024-07-30] MEDS: Metoprolol(XL)Succ 25 MG Tablet PO (08:35)
[2024-07-30] MEDS: Nystatin Powder 15gm Bottle 1 APPLIC TOPICAL ×2 (08:35→20:15)
[2024-07-30] MEDS: Menthol/Lanolin/Calamine/Znox 113 GM Tube 1 APPLIC TOPICAL ×2 (08:36→20:15)
[2024-07-30] MEDS: 0.9% Normal Saline (1000mL) 1,000 ML 75 ML IV (11:31)
[2024-07-30 14:05] VITALS: BMI 30.1
[2024-07-30 17:26] VITALS: BP 151/7; PULSE 76; RESP 17; TEMP 36.7; O2SAT 97
[2024-07-30 20:13] VITALS: BMI 30.1
[2024-07-30] MEDS: Atorvastatin Calcium 40 MG Tablet PO (20:15)
[2024-07-31] MEDS: 0.9% Normal Saline (1000mL) 1,000 ML 75 ML IV (00:47)
[2024-07-31] MEDS: Acetaminophen 325 MG Tablet 650 MG PO ×2 (00:59→09:39)
[2024-07-31] MEDS: Enoxaparin 40 MG/0.4 ML Syringe SC (05:44)
[2024-07-31 05:46] VITALS: BP 144/65; PULSE 64
[2024-07-31] MEDS: Nitroglycerin 0.1 MG Patch TD (05:46)
[2024-07-31 06:00] VITALS: BP 144/65; PULSE 64; RESP 17; TEMP 36.6; O2SAT 94; BMI 31.1
[2024-07-31] MEDS: Sertraline 50 MG Tablet PO (08:00)
[2024-07-31] MEDS: Lisinopril 5 MG Tablet PO (08:00)
[2024-07-31 08:01] VITALS: BP 144/65; PULSE 64
[2024-07-31] MEDS: Clopidogrel Bisulfate 75 MG Tablet PO (08:01)
[2024-07-31] MEDS: Metoprolol(XL)Succ 25 MG Tablet PO (08:01)
[2024-07-31] MEDS: Aspirin 81 MG TAB.CHEW PO (08:01)
[2024-07-31] MEDS: Nystatin Powder 15gm Bottle 1 APPLIC TOPICAL ×2 (08:05→20:00)
[2024-07-31] MEDS: Menthol/Lanolin/Calamine/Znox 113 GM Tube 1 APPLIC TOPICAL ×2 (08:05→20:00)
[2024-07-31 10:00] VITALS: O2SAT 96
--- NOTE | 2024-07-31 11:04 | PN_ITS ---
Subjective Subjective Waldemar was seen on team rounds today. His ex- Pearl participated by phone. All questions were answered to Waldemar and Pearl satisfaction. Afebrile VSS -blood pressure has improved with hydration but now be systolic is mildly elevated and has ranged from 144?151 over the past 12 hours. Will continue to monitor. Heart rate is within normal limits. Maintaining appropriate oxygen saturation on RA Oral intake - FOOD good FLUIDS oral fluid intake is adequate now. Discussed with nursing - no problems that need addressed Reviewed the THERAPY notes Medication list reviewed. Denies lightheadedness. Dyspnea on exertion has improved with the addition of a nitrate to his drug regimen. He denies chest pain, palpitations, nausea/vomiting/abdominal pain, dysuria and calf tenderness. He is complaining of right knee pain and it has been buckling with therapy. PT has been trying different braces with him to support the knee. Objective Data Objective Data Vital Signs: Vital Signs Temp Pulse Resp BP Pulse Ox O2 Del Method 97.8 F 64 17 144/65 H 94 Room Air 07/31/24 06:00 07/31/24 08:01 07/31/24 06:00 07/31/24 08:01 07/31/24 06:00 07/31/24 06:00 Oxygen Delivery Method Room Air Weight: 181 lb 1.6 oz Body Mass Index (BMI) 30.1 Intake & Output: Intake and Output for Last 24 Hours 07/29/24 07/30/24 07/31/24 23:59 23:59 23:59 Intake Total 4073.75 / 4073.75 2832.5 / 2832.5 1435 / 1435 Output Total 2275 / 2275 2600 / 2600 850 / 850 Balance 1798.75 / 1798.75 232.5 / 232.5 585 / 585 Lab / Micro Data 07/29/24 06:58 07/29/24 06:58 Physical Exam Const alert and no apparent distress Constitutional Narrative: Trace facial droop when he is smiling but when at rest cannot perceive any significant facial droop. General Appearance: cooperative Orientation / Consciousness: Negative for confused HEENT moist oral mucous membranes Eyes PERRL and EOMs intact bilaterally Eyes Narrative: No visual field cuts. Neck supple, No nodes and no carotid bruits Neck Narrative: Carotids have brisk upstroke and good pulse volume bilaterally General: trachea midline Resp normal respiratory effort, normal air movement and clear to auscultation bilaterally Resp Narrative: No cough with deep breathing. Effort and Inspection: Negative for tachypneic Cardio regular rate, regular rhythm, no murmurs and no gallops Cardio Narrative: No ectopy GI normal to inspection, nondistended, normoactive bowel sounds, soft to palpation and non-tender GI Narrative: No guarding with palpation. No pain with palpation of the RUQ. Extremity no calf tenderness Extremity Narrative: Better document photographer with the R hand and more movement in the RUE. Still with mild edema of the hand on the R. The R knee is not swollen and there is no erythema. It is not clemente warm to touch. He is able to consistently move the right lower extremity forward when ambulating and the physical therapist is not having to kick it forward any longer. Muscles of the right thigh are still weak and unable to support the knee adequately. Bracing will definitely help. I feel the pain is more likely than not secondary to strain related to muscle weakness and increased use of the right lower extremity. General Extremity: Negative for edema Skin Skin Narrative: Has a few small erythematous areas on the buttocks/sacrum and the nurses have started Calmoseptine. General Skin Exam: no breakdown Rashes: no rashes Wounds: Negative for wounds noted Neuro Neuro Narrative: Able to hold the R eye closed against resistance somewhat now. He was not able to do this at admission. He can raise the R eyebrow even with the left now......not able to do this at admission. Still with R facial droop but, less pronounced. Drool is less prominent. He can lift the RUE off the bed and hold it up for a few secs. Ab le to document photographer with the R hand now.......weak but, had no document photographer at admission. Still with R foot drop. Has weakness RLE but, this is improving. He was able to do the TUG today for the first time and he was able to advance the RLE without assist today. TUG done in 87 sec. Psych cooperative and denies suicidal ideation Psych Narrative: No longer agitated but affect is somewhat flat. Good interactions with staff. Makes good eye contact with me when we are talking. 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 transplanted heart: [place] heart A ssociated angina: without angina Qualified Code(s): I25.10 - Atherosclerotic heart disease of [place] coronary artery without angina pectoris (8) HTN (hypertension): QUALIFIERS: Hypertension type: primary hypertension Qualified Code(s): I10 - Essential (primary) hypertension (9) PFO (patent foramen ovale): (10) Abnormal LFTs: (11) Dyspnea on exertion: PLAN: Resolved with the addition of Nitrate to the drug regimen. No lightheadedness with the nitrate. PLAN: Plan 1. Continue therapy 2. Discontinue IV fluids. 3. Continue to monitor blood pressure closely-no adjustment to the antihypertensive regimen at this time. 4. Continue to brace the right knee-will have to order a brace for when he is discharged from rehab. Pearl will order the recommended brace by physical therapy from [facility] so that we have it prior to discharge. 5. Start compounded arthritis cream containing lidocaine, Voltaren and baclofen 3 times daily to the right knee. 6. Continue sertraline for depression related to his stroke. He is tolerating well without any adverse side effects. Charges/Coding Visit Charges Inpatient E&M: 48734 Subs Hosp L2
--- NOTE | 2024-07-31 13:09 | CASEMGMT ---
Social Work IDT met with patient and conference call with [facility] for Team meeting. Discussed patient's progress in PT/OT/ST/SN. Educated to [place] insurance with NRD 08/03, continued stay is not guaranteed and no advanced notice is required. SW continues to keep [facility] updated as that is pt's DC plan. SW reiterated precert process and educated to OOP if precert denied. SW will continue to follow. Anne Lewis, PLUMBING ENGINEERING DRAFTSPERSON [employer] SUPER[employer]
[2024-07-31] MEDS: Arthritis Pain Compound 60 CLICK TUBE TOPICAL ×2 (13:37→20:01)
[2024-07-31 15:52] VITALS: BMI 31.1
[2024-07-31 18:00] VITALS: BP 108/65; PULSE 60; RESP 17; TEMP 36.7; O2SAT 96
[2024-07-31] MEDS: Atorvastatin Calcium 40 MG Tablet PO (20:01)
[2024-07-31 20:12] VITALS: BMI 31.1
[2024-08-01 06:00] VITALS: BP 123/72; PULSE 62; RESP 18; TEMP 36.4; O2SAT 95
[2024-08-01] MEDS: Arthritis Pain Compound 60 CLICK TUBE TOPICAL ×2 (06:06→20:32)
[2024-08-01] MEDS: Enoxaparin 40 MG/0.4 ML Syringe SC (06:07)
[2024-08-01] MEDS: Nitroglycerin 0.1 MG Patch TD (06:40)
[2024-08-01] MEDS: Lisinopril 5 MG Tablet PO (08:03)
[2024-08-01] MEDS: Clopidogrel Bisulfate 75 MG Tablet PO (08:03)
[2024-08-01 08:04] VITALS: BP 123/72; PULSE 62
[2024-08-01] MEDS: Aspirin 81 MG TAB.CHEW PO (08:04)
[2024-08-01] MEDS: Menthol/Lanolin/Calamine/Znox 113 GM Tube 1 APPLIC TOPICAL ×2 (08:04→20:33)
[2024-08-01] MEDS: Sertraline 50 MG Tablet PO (08:04)
[2024-08-01] MEDS: Metoprolol(XL)Succ 25 MG Tablet PO (08:04)
[2024-08-01] MEDS: Nystatin Powder 15gm Bottle 1 APPLIC TOPICAL ×2 (08:05→20:33)
[2024-08-01 16:54] VITALS: BMI 31.1
[2024-08-01 18:00] VITALS: BP 101/66; PULSE 63; RESP 17; TEMP 36.3; O2SAT 95
[2024-08-01 20:31] VITALS: BMI 31.1
[2024-08-01] MEDS: Atorvastatin Calcium 40 MG Tablet PO (20:32)
[2024-08-01] MEDS: Polyethylene Glycol 3350 17 GM PACKET PO (20:32)
[2024-08-01] MEDS: 0.9% Saline Lock 10 ML Syringe IV (20:34)
[2024-08-01 22:00] VITALS: PULSE 62; RESP 16; O2SAT 95
[2024-08-02 04:47] VITALS: BP 116/67; PULSE 51; RESP 16; TEMP 36.4; O2SAT 94
[2024-08-02 04:49] VITALS: BMI 29.7
[2024-08-02] MEDS: 0.9% Saline Lock 10 ML Syringe IV ×2 (04:50→07:41)
[2024-08-02] MEDS: Arthritis Pain Compound 60 CLICK TUBE TOPICAL ×3 (05:03→20:24)
[2024-08-02] MEDS: Enoxaparin 40 MG/0.4 ML Syringe SC (05:03)
[2024-08-02 06:06] VITALS: BP 116/67; PULSE 51
[2024-08-02] MEDS: Nitroglycerin 0.1 MG Patch TD (06:06)
[2024-08-02 07:39] VITALS: PULSE 60
[2024-08-02] MEDS: Nystatin Powder 15gm Bottle 1 APPLIC TOPICAL ×2 (07:39→20:25)
[2024-08-02] MEDS: Sertraline 50 MG Tablet PO (07:39)
[2024-08-02] MEDS: Metoprolol(XL)Succ 25 MG Tablet PO (07:39)
[2024-08-02] MEDS: Clopidogrel Bisulfate 75 MG Tablet PO (07:39)
[2024-08-02] MEDS: Menthol/Lanolin/Calamine/Znox 113 GM Tube 1 APPLIC TOPICAL ×2 (07:39→20:26)
[2024-08-02] MEDS: Aspirin 81 MG TAB.CHEW PO (07:39)
[2024-08-02] MEDS: Lisinopril 5 MG Tablet PO (07:40)
--- NOTE | 2024-08-02 10:46 | PN_ITS ---
Subjective Subjective Afebrile VSS -blood pressure is well-controlled and within goal. Heart rate has ranged from 51-63 over the past 24 hours. Heart rates in the 50s are when he is sleeping. Maintaining appropriate oxygen saturation on RA Oral intake - FOOD good FLUIDS good Discussed with nursing - no problems that need addressed. Sleeping well at night. Irritability has resolved. Reviewed the THERAPY notes Medication list reviewed. Denies lightheadedness, dyspnea on exertion, chest tightness/pain, palpitations, nausea/vomiting/abdominal pain, dysuria and calf tenderness. He tells me that the pain in his right knee has improved with the application of the arthritis compounded cream. Objective Data Objective Data Vital Signs: Vital Signs Temp Pulse Resp BP Pulse Ox O2 Del Method 97.5 F L 60 16 116/67 94 Room Air 08/02/24 04:47 08/02/24 07:39 08/02/24 04:47 08/02/24 06:06 08/02/24 04:47 08/02/24 04:47 Oxygen Delivery Method Room Air Weight: 179 lb 0.246 oz Body Mass Index (BMI) 29.7 Intake & Output: Intake and Output for Last 24 Hours 07/31/24 08/01/24 08/02/24 23:59 23:59 23:59 Intake Total 3675 / 3675 1090 / 1090 760 / 760 Output Total 1450 / 1450 2475 / 2475 620 / 620 Balance 2225 / 2225 -1385 / -1385 140 / 140 Lab / Micro Data 07/29/24 06:58 07/29/24 06:58 Physical Exam Const alert, oriented x3 and no apparent distress Constitutional Narrative: Trace facial droop when he is smiling but when at rest cannot perceive any significant facial droop. General Appearance: cooperative Orientation / Consciousness: Negative for confused HEENT moist oral mucous membranes Eyes PERRL and EOMs intact bilaterally Eyes Narrative: No visual field cuts. Neck supple, No nodes and no carotid bruits Neck Narrative: Carotids have brisk upstroke and good pulse volume bilaterally General: trachea midline Resp normal respiratory effort, normal air movement and clear to auscultation bilaterally Resp Narrative: No cough with deep breathing. Effort and Inspection: Negative for tachypneic Cardio regular rate, regular rhythm, no murmurs and no gallops Cardio Narrative: No ectopy GI normal to inspection, nondistended, normoactive bowel sounds, soft to palpation and non-tender GI Narrative: No guarding with palpation. No pain with palpation of the RUQ. Extremity no calf tenderness Extremity Narrative: some edema of the R hand but, no ankle edema. General Extremity: Negative for clubbing, cyanosis or edema Skin Skin Narrative: Has a few small erythematous areas on the buttocks/sacrum and the nurses have started Calmoseptine. General Skin Exam: no breakdown Rashes: no rashes Wounds: Negative for wounds noted Neuro Neuro Narrative: Facial droop is much improved from admission. Speech is more intelligible and I have no difficulty understanding him. Still slurring a little. Able to lift the RUE off the bed and hold it up for a few seconds. Camp Counselor strength is slowly improving. RUE is weaker than the RLE. Psych cooperative and denies suicidal ideation Psych Narrative: No longer agitated but affect is somewhat flat. Good interactions with staff. Makes good eye contact with me when we are talking. 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 transplanted heart: [place] heart A ssociated angina: without angina Qualified Code(s): I25.10 - Atherosclerotic heart disease of [place] coronary artery without angina pectoris (8) HTN (hypertension): QUALIFIERS: Hypertension type: primary hypertension Qualified Code(s): I10 - Essential (primary) hypertension (9) PFO (patent foramen ovale): (10) Abnormal LFTs: (11) Dyspnea on exertion: PLAN: Resolved with the addition of Nitrate to the drug regimen. No lightheadedness with the nitrate. PLAN: Plan 1. Continue therapy 2. No changes to the medication regimen 3. Will need SNF at discharge Charges/Coding Visit Charges Inpatient E&M: 80525 Subs Hosp L1
[2024-08-02 15:22] VITALS: BMI 29.7
[2024-08-02 17:35] VITALS: BP 109/71; PULSE 58; RESP 17; TEMP 36.3; O2SAT 96
[2024-08-02 20:00] VITALS: PULSE 58; RESP 17; O2SAT 17; BMI 29.7
[2024-08-02] MEDS: Atorvastatin Calcium 40 MG Tablet PO (20:25)
[2024-08-03] MEDS: Acetaminophen 325 MG Tablet 650 MG PO ×3 (02:09→21:10)
[2024-08-03 05:26] VITALS: BP 130/72; PULSE 59; RESP 16; TEMP 36.3; O2SAT 97; BMI 29.7
[2024-08-03] MEDS: Arthritis Pain Compound 60 CLICK TUBE TOPICAL ×3 (05:41→21:09)
[2024-08-03 05:43] VITALS: BP 130/72; PULSE 59
[2024-08-03] MEDS: Nitroglycerin 0.1 MG Patch TD (05:43)
[2024-08-03] MEDS: Enoxaparin 40 MG/0.4 ML Syringe SC (05:44)
[2024-08-03] MEDS: Lisinopril 5 MG Tablet PO (08:09)
[2024-08-03] MEDS: Sertraline 50 MG Tablet PO (08:09)
[2024-08-03 08:10] VITALS: PULSE 59
[2024-08-03] MEDS: Clopidogrel Bisulfate 75 MG Tablet PO (08:10)
[2024-08-03] MEDS: Menthol/Lanolin/Calamine/Znox 113 GM Tube 1 APPLIC TOPICAL ×2 (08:10→21:10)
[2024-08-03] MEDS: Aspirin 81 MG TAB.CHEW PO (08:10)
[2024-08-03] MEDS: Nystatin Powder 15gm Bottle 1 APPLIC TOPICAL ×2 (08:10→21:11)
[2024-08-03] MEDS: Metoprolol(XL)Succ 25 MG Tablet PO (08:10)
[2024-08-03] MEDS: 0.9% Saline Lock 10 ML Syringe IV (08:13)
--- NOTE | 2024-08-03 11:20 | CASEMGMT ---
Addendum entered by Anne Lewis 08/04/24 16:15: auth received. Transport scheduled for 1100. IDT and pt updated. DC paperwork sent to [facility]. IRVIN notified nursing, SNF asking for COVID test prior to admit. Addendum entered by Anne Lewis 08/04/24 14:49: 7000 completed in [facility]. [place] Summary sent to [facility]. Addendum entered by Anne Lewis 08/04/24 11:32: IRVIN did hear hear back from Brooklynn at [facility] on 08/03 on precert process. IRVIN phoned Brooklynn at 0830 who did not receive this worker's multiple communications in [facility]. Brooklynn will start precert and notify this worker. At this time 1130, IRVIN phoned Brooklynn to inquire about precert. Brooklynn stated she started precert about 1015. IRVIN will continue to follow. If precert is not obtained by end of business day today, pt will be admitted through the weekend. Original Note: Social Work Insurance issued LCD 08/03. P2P option provided. denied completing P2P. IRVIN updated [facility], new notes and request to start precert for pt to admit 08/04 skilled. Will await outcome. Plan: DC 08/04, pending precert, to [facility] SNF, skilled ESTELA AskewW
[2024-08-03 13:02] VITALS: BMI 29.7
[2024-08-03 18:00] VITALS: BP 122/76; PULSE 60; RESP 18; TEMP 36.3; O2SAT 93
[2024-08-03] MEDS: Atorvastatin Calcium 40 MG Tablet PO (21:09)
[2024-08-03] MEDS: Senna/Docusate Sodium 1 Tablet 2 TABLET PO (21:10)
[2024-08-04 01:56] VITALS: BMI 29.7
[2024-08-04 04:31] VITALS: BMI 29.8
[2024-08-04] MEDS: Arthritis Pain Compound 60 CLICK TUBE TOPICAL ×3 (05:21→20:38)
[2024-08-04] MEDS: Enoxaparin 40 MG/0.4 ML Syringe SC (05:22)
[2024-08-04 06:00] VITALS: BP 107/67; PULSE 59; RESP 18; TEMP 36.7; O2SAT 94
[2024-08-04 07:40] VITALS: BP 126/73; PULSE 67
[2024-08-04] MEDS: Aspirin 81 MG TAB.CHEW PO (07:40)
[2024-08-04] MEDS: Metoprolol(XL)Succ 25 MG Tablet PO (07:40)
[2024-08-04 07:41] VITALS: BP 126/73; PULSE 67
[2024-08-04] MEDS: Nitroglycerin 0.1 MG Patch TD (07:41)
[2024-08-04] MEDS: Sertraline 50 MG Tablet PO (07:41)
[2024-08-04] MEDS: Lisinopril 5 MG Tablet PO (07:41)
[2024-08-04] MEDS: Clopidogrel Bisulfate 75 MG Tablet PO (07:41)
[2024-08-04] MEDS: Nystatin Powder 15gm Bottle 1 APPLIC TOPICAL (07:45)
[2024-08-04] MEDS: Menthol/Lanolin/Calamine/Znox 113 GM Tube 1 APPLIC TOPICAL (07:45)
[2024-08-04 13:11] VITALS: BMI 29.8
--- NOTE | 2024-08-04 13:29 | PCM.TXEXTCAR ---
Diet Diet Order/Speech Therapy: 07/13/24 19:27 Diet: Cardiac - Heart Healthy Routine Orders/Code Status Enema Type: Fleetz Enema Frequency: Daily PRN Suppository Type: Dulcolax 10mg Suppository Frequency: Daily PRN Change Vitale Catheter: N/A O2 Liters per Minute: 1-2 O2 Frequency: PRN Keep PO Greater than or Equal to (%): 90 Routine Lab Work: - (CBC, CMP and lipid profile on 08/07/24) Code Status: Full Code Wound(s) rt mid thompson: Wound Type: Abrasion Therapies Weight Bearing: Full weight bearing Extremity Affected:: Right Lower and Right Upper Physical Therapy: Eval and Treat Occupational Therapy: Eval and Treat Speech Therapy: Eval and Treat Problem/Diagnosis (1) Physical debility: Status: Acute Code(s): R53.81 - Other malaise (2) Ischemic cerebrovascular accident (CVA): Status: Acute Code(s): I63.9 - Cerebral infarction, unspecified Plan: MRI on 07/09/2024 showed an acute lacunar infarct in the left centrum semiovale and a remote lacunar infarct with hemosiderin deposition in the adjacent left centrum semiovale. 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 Will follow up with cardiology and thoracic surgery for the timing of the CABG. Comment: multivessel -70% stenosis of the proximal LAD, 95% stenosis of the third OM, 80% stenosis of the mid RCA and 90% stenosis of the distal RCA. (9) HTN (hypertension): Status: Chronic Code(s): I10 - Essential (primary) hypertension (10) PFO (patent foramen ovale): Status: Chronic Code(s): Q21.12 - Patent foramen ovale (11) Abnormal LFTs: Status: Acute Code(s): R79.89 - Other specified abnormal findings of blood chemistry (12) Dyspnea on exertion: Status: Resolved Code(s): R06.09 - Other forms of dyspnea Plan: Resolved with the addition of Nitrate to the drug regimen. No lightheadedness with the nitrate. (13) Hyponatremia: Status: Resolved Code(s): E87.1 - Hypo-osmolality and hyponatremia (14) HLD (hyperlipidemia): Status: Chronic Code(s): E78.5 - Hyperlipidemia, unspecified (15) Tobacco dependence in remission: Status: Inactive Code(s): F17.201 - Nicotine dependence, unspecified, in remission Comment: quit in 1998. Smoked for a total of 8 years/1 PPD (16) Depression: Status: Acute Code(s): F32.A - Depression, unspecified Plan 1. DC to SNF/[facility] 2. Follow up with cardiology/cardiothoracic surgery for timing of proposed CABG 3. Check a CBC, CMP and lipid profile on 08/07/2024 4. Abnormal LFTs with history of 3 or more alcoholic drinks per day/beer. Recommend imaging of the liver going forward. 5. Continue sertraline for depression. Has been tolerating 50 mg daily with no adverse side effects. Would consider increasing to 100 mg daily which is a more therapeutic dose, especially since he is going to require CABG going forward and likely will need acute rehab/SNF after the CABG. Sleeping well at DC from rehab and has good appetite. No longer irritable but, affect is still flat at times and he is frustrated with insurance and perseverates on this. Allergies/Procedures Done in Hospital Allergies No Known Allergies Allergy (Verified 07/13/24 19:18) Procedures: 2-D Echocardiogram (The echocardiogram was done at [facility] prior to transfer to rehab. It showed a normal left ventricular ejection fraction of 60% with no wall motion abnormalities. There was a PFO.) Type of Care/Length of Stay Estimated LOS: Convalescent Care Less Than 30 days Type of Care Needed: Skilled Rehab Potential: Good Prognosis: Good Additional Orders/Day of Discharge H&P will serve as current which was dated: 07/14/24 Day of Discharge: 08/04/24 Dietary and Speech Recommendations Dietitian Recommendations/Changes: Continue cardiac diet. If PO intake declines, will offer ONS. Will provide nutrition education, if pt request. Reviewed and approved by Eugenie Holman RD, LD. Follow Up Care Please follow up with your Primary Care Physician in: Following DC from SNF Please Follow Up With: cardiology at [facility] When: Mid August Please Follow Up With: neurology When: Following DC from SNF Discharge Plan Admission Admit Date/Time: 07/13/24 19:26 Primary Reason for Your Visit: Post stroke debility Attending Provider: Lorraine Meza Primary Care Provider: Gurvinder Ziegler Discharge Orders/Prescriptions Prescriptions: New acetaminophen 325 mg Tablet 650 mg PO Q6H PRN PRN (Reason: Pain Score 1-10) Qty: 1 0RF nitroglycerin 0.1 mg/hr Patch 24 Hour 0.1 mg transdermal DAILY@0700 Qty: 1 0RF sennosides-docusate sodium [Stimulant Laxative Plus] 8.6-50 mg Tablet 2 tab PO BID PRN (Reason: Constipation) Qty: 1 0RF magnesium hydroxide 400 mg/5 mL Suspension 30 ml PO X1 PRN (Reason: Constipation) Qty: 30 0RF bisacodyl 10 mg Suppository 10 mg DE X1 PRN (Reason: Constipation) Qty: 1 0RF lisinopril 5 mg Tablet 5 mg PO DAILY Qty: 1 0RF nystatin [Nyamyc] 100,000 unit/gram Powder 1 applic topical BID Qty: 1 0RF Protocol: *Topical Application Instructions APPLICATION INSTRUCTIONS: apply to scrotum and groin menthol-zinc oxide [Calmoseptine] 0.44-20.6 % Ointment 1 applic topical BID Qty: 1 0RF Protocol: *Topical Application Instructions APPLICATION INSTRUCTIONS: apply to coccyx sertraline 50 mg Tablet 50 mg PO DAILY Qty: 1 0RF Continued metoprolol succinate 25 mg tablet extended release 24 hr 25 mg PO DAILY oxymetazoline [12 Hour Nasal Relief [place]] 0.05 % spray,non-aerosol 2 spray intranasal Q12H PRN (Reason: congestion) aspirin 81 mg tablet,chewable 1 tab PO DAILY atorvastatin 40 mg tablet 40 mg PO QHS clopidogrel [Plavix] 75 mg tablet 75 mg PO DAILY Discontinued lisinopril 10 mg tablet 10 mg PO DAILY Referrals / Follow Up: Gurvinder Ziegler MD [Primary Care Provider] - Disposition Disposition (needs filled in before D/C Order can be placed): [facility] (8) CAD (coronary artery disease), [place] coronary artery Qualifiers: [place] vs. transplanted heart: [place] heart Associated angina: without angina Qualified Code(s): I25.10 - Atherosclerotic heart disease of [place] coronary artery without angina pectoris (9) HTN (hypertension) Qualifiers: Hypertension type: primary hypertension Qualified Code(s): I10 - Essential (primary) hypertension (14) HLD (hyperlipidemia) Qualifiers: Hyperlipidemia type: pure hypercholesterolemia Qualified Code(s): E78.00 - Pure hypercholesterolemia, unspecified
--- NOTE | 2024-08-04 14:02 | EX.DISCHREH ---
Providers Date of Admission: 07/13/24 Date of Discharge: 08/04/24 Primary Care Physician: Dr. Gurvinder Ziegler MD None Reason For Visit: STROKE Diagnosis Discharge Diagnosis (1) Physical debility: Status: Acute Code(s): R53.81 - Other malaise (2) Ischemic cerebrovascular accident (CVA): Status: Acute Code(s): I63.9 - Cerebral infarction, unspecified Plan: MRI on 07/09/2024 showed an acute lacunar infarct in the left centrum semiovale and a remote lacunar infarct with hemosiderin deposition in the adjacent left centrum semiovale. 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 transplanted heart: [place] heart Qualified Code(s): I25.10 - Atherosclerotic heart disease of [place] coronary artery without angina pectoris Plan: Continue statin, nitrates, beta-blockers, dual antiplatelet agents. 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 Will follow up with cardiology and thoracic surgery mid-August for the timing of the CABG. (9) HTN (hypertension): Status: Chronic Code(s): I10 - Essential (primary) hypertension Qualifiers: Hypertension type: primary hypertension Qualified Code(s): I10 - Essential (primary) hypertension (10) PFO (patent foramen ovale): Status: Chronic Code(s): Q21.12 - Patent foramen ovale (11) Abnormal LFTs: Status: Chronic Code(s): R79.89 - Other specified abnormal findings of blood chemistry (12) Dyspnea on exertion: Status: Resolved Code(s): R06.09 - Other forms of dyspnea Plan: Resolved with the addition of Nitrate to the drug regimen. No lightheadedness with the nitrate. (13) Hyponatremia: Status: Resolved Code(s): E87.1 - Hypo-osmolality and hyponatremia (14) HLD (hyperlipidemia): Status: Chronic Code(s): E78.5 - Hyperlipidemia, unspecified Qualifiers: Hyperlipidemia type: pure hypercholesterolemia Qualified Code(s): E78.00 - Pure hypercholesterolemia, unspecified (15) Tobacco dependence in remission: Status: Inactive Code(s): F17.201 - Nicotine dependence, unspecified, in remission (16) Depression: Status: Acute Code(s): F32.A - Depression, unspecified (17) Glucose intolerance: Status: Acute Code(s): E74.39 - Other disorders of intestinal carbohydrate absorption Plan: Hemoglobin A1c was 5.8%. Plan 1. DC to SNF/[facility] 2. Follow up with cardiology/cardiothoracic surgery for timing of proposed CABG 3. Check a CBC, CMP and lipid profile on 08/07/2024 4. Abnormal LFTs with history of 3 or more alcoholic drinks per day/beer. Recommend imaging of the liver going forward. 5. Continue sertraline for depression. Has been tolerating 50 mg daily with no adverse side effects. Would consider increasing to 100 mg daily which is a more therapeutic dose, especially since he is going to require CABG going forward and likely will need acute rehab/SNF after the CABG. Sleeping well at DC from rehab and has good appetite. No longer irritable but, affect is still flat at times and he is frustrated with insurance and perseverates on this. Medications at Discharge Home Medications aspirin 81 mg chewable tablet 1 tab PO DAILY heart health 07/13/24 atorvastatin 40 mg tablet 40 mg PO QHS cholesterol 07/13/24 clopidogrel 75 mg tablet (Plavix) 75 mg PO DAILY afib 07/13/24 metoprolol succinate 25 mg tablet,extended release 24 hr 25 mg PO DAILY blood pressure 07/13/24 oxymetazoline 0.05 % nasal spray (12 Hour Nasal Relief [place]) 2 spray intranasal Q12H PRN congestion 07/13/24 acetaminophen 325 mg tablet 650 mg (2 x 325 mg) PO Q6H PRN PRN Pain Score 1-10 #1 TAB 08/04/24 bisacodyl 10 mg rectal suppository 10 mg AL X1 PRN Constipation #1 ea 08/04/24 diclofenac sodium 1 % topical gel (Voltaren Arthritis Pain) 2 g topical TID #100 grams 08/04/24 lisinopril 5 mg tablet 5 mg PO DAILY #1 TAB 08/04/24 magnesium hydroxide 400 mg/5 mL oral suspension 30 ml PO X1 PRN Constipation #30 mL 08/04/24 menthol 0.44 %-zinc oxide 20.6 % topical ointment (Calmoseptine) 1 applic topical BID #1 g 08/04/24 nitroglycerin 0.1 mg/hr transdermal 24 hour patch 0.1 mg transdermal DAILY@0700 #1 ea 08/04/24 nystatin 100,000 unit/gram topical powder (Nyamyc) 1 applic topical BID #1 g 08/04/24 sennosides 8.6 mg-docusate sodium 50 mg tablet (Stimulant Laxative Plus) 2 tab PO BID PRN Constipation #1 TAB 08/04/24 sertraline 50 mg tablet 50 mg PO DAILY #1 TAB 08/04/24 Hospital Course Operations None Procedures 2-D Echocardiogram (Normal left ventricular ejection fraction, no wall motion abnormalities, no valvular heart disease, positive PFO. ) and Cardiac catheterization (At [facility]. Multivessel coronary artery disease. Will need CABG going forward.) Summary of Care Provided Minutes Spent on Discharge: 45 Hospital Course: CISCO SAINI, is a 68 YO male with no significant PMH other than remote tobacco dependence (quit 1998 after 8 years of smoking) and on no RX medications who presented to an ED on 07/07/24 c/o sudden onset of R side weakness. He was unable to walk and could not lift his R arm. He had started feeling generally weak earlier in the day but, did not have a WYATT and had no focal neurologic deficits. While in the ED his sx resolved. CT brain revealed no acute pathology. CTA of the head and neck showed no significant stenosis. Reportedly he had a very elevated troponin (526 initially in ED and peaked at 646) but, EKG was negative for ischemia. Total cholesterol was 235 with an LDL of 174 and a HDL of 46. TRIG were WNL. HGBA1C was increased at 5.8%. He was started on a heparin drip and admitted to the hospital for TIA. He was also started on a statin and ASA. ECHO, MRI and cardiology consult were ordered. On 07/09/24 he reported worsening R side weakness and increased dysarthria. A repeat [place] CT brain on 07/09/24 showed a low attenuation lesion of the L periventricular white matter that was not reported on the first CT brain. MRI showed an acute lacunar infarct in the L centrum semiovale. There was also a remote lacunar infarct with hemosiderin deposition in the adjacent L centrum semiovale. 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 LVEF was normal at 60%. ECHO showed no wall motion abnormalities. There was a PFO. While at [facility] he was seen by PT/OT/ST and a recommendation was made for acute rehab at [place]. He was transferred to the acute inpt rehab unit at [facility] on 07/13/24 for 3 hours of therapy daily. CABG was discussed with him prior to DC from [facility] and he is to follow up with cardiology in 6-8 weeks to discuss timing of Proposed CABG. He did not have venous US's of the legs at [facility] but, he had no leg swelling, no hx of DVT and no calf pain. Cisco c/o CASTELLANOS during his stay on rehab. He had no chest pain or chest tightness. He denied lightheadedness and palpitations. He was started on a nitro patch for suspected anginal equivalent and the CASTELLANOS resolved. He has been asymptomatic on the nitrate and orthostatics have been negative. Affect was normal at presentation to rehab but, he gradually became irritable and had some tearful moments. Affect was flat and he was perseverating on how unfair his insurance company was in wanting to have him transferred to SNF. He was started on Sertraline 50 mg daily and has been tolerating this well. He is no longer irritable and he is sleeping well at night. His appetite is good. Affect is still a little flat but, he is interacting with staff well. He recognizes that he has a long road to recovery and he knows that he is going to need to have bypass surgery going forward. May need to consider increasing the dose on the Sertraline if he is still tearful and flat in a couple more weeks. He will need to follow up with cardiology in about mid August to discuss CABG/timing of CABG and whether or not the PFO will be closed at the time of the CABG. Cisco has made good progress on rehab but, he is not able to adequately care for himself without assist at the time of DC from rehab. He will be going to SNF for additional rehabilitation. He lives alone. At the time of DC he is supervision/set up with eating, grooming and upper body dressing. He requires minimal assistance with lower body dressing. He needs moderate assistance for tub/shower transfer and for bathing. He is mod assist x 1-2 people for toilet transfer and toileting. He is able to do 9 sit to stands in 30 seconds with good control from the wheelchair with a right knee brace for stability at contact-guard assist. He is able to do one 4 inch step up and then back down with 1 handrail at mod/max assist x 1 with the ELECTRICAL TECHNICIAN INSTRUCTOR blocking the right knee. He is advancing his right lower extremity on his own now. Has ambulated up to 20 feet with a hemiwalker at min assist for trunk/balance. Cisco was discharged to SNF for additional therapy so that at some point he may return home. He will need to follow up with cardiology in Mid August to discuss plans for CABG. He will continue DAPT, Metoprolol, high intensity statin and a nitrate. He needs a brace for the R knee to help stabilize. His ex- was to order for him. We have been treating the R knee pain with a compounded cream containing Voltaren, Lidocaine and Baclofen. This has been very effective. Will transition to Voltaren Gel upon transfer. Physical Exam Const alert, oriented x3 and no apparent distress General Appearance: cooperative, comfortable and well kempt Orientation / Consciousness: Negative for confused HEENT moist oral mucous membranes Eyes PERRL and EOMs intact bilaterally Eyes Narrative: No visual field cuts. Neck supple, No nodes and no carotid bruits Neck Narrative: Carotids have brisk upstroke and good pulse volume bilaterally General: trachea midline Resp normal respiratory effort, normal air movement and clear to auscultation bilaterally Resp Narrative: No cough with deep breathing. Effort and Inspection: Negative for tachypneic Cardio regular rate, regular rhythm, no murmurs and no gallops Cardio Narrative: No ectopy. He has been in a regular rhythm every time I have listened to him while on rehab. He has no hx of AF. GI normal to inspection, nondistended, normoactive bowel sounds, soft to palpation and non-tender GI Narrative: No guarding with palpation. No pain with palpation of the RUQ. Extremity no calf tenderness Extremity Narrative: some edema of the R hand but, no ankle edema. General Extremity: Negative for clubbing, cyanosis or edema Skin General Skin Exam: no breakdown Rashes: no rashes Wounds: Negative for wounds noted Hair: general thinning Neuro Neuro Narrative: Facial droop is much improved from admission. Speech is more intelligible and I have no difficulty understanding him. He is enunciating much better. No longer is drooling from the r mouth. Still slurring a little at times. Able to lift the RUE off the bed and hold it up for a few seconds without it falling to the bed. Unable to check for ataxia of the RUE. Chief Information Security Officer strength is slowly improving. RUE is weaker than the RLE. No visual field cuts. No visual or tactile extinction. Psych cooperative and denies suicidal ideation Psych Narrative: No longer agitated but affect is somewhat flat. Good interactions with staff. Makes good eye contact with me when we are talking. A little pre Appearance: appropriate Attitude: No agitated Activity / Motor Behavior: appropriate eye contact; Negative for restless Weight / BMI Weight Weight: 179 lb 6 oz Body Mass Index (BMI) 29.8 ABG / Lab / Microbiology Data 07/29/24 06:58 07/29/24 06:58 Indicators for Scoring Admitted with or Primary Diagnosis of CVA/Stroke: Yes Hx of CVA/Stroke: Yes Modified [place] Score MRS Score at time of Evaluation: 4-Moderate/severe disability NIHSS NIHSS 1a. Level of Consciousness: Alert; keenly responsive 1b. LOC Questions: Answers BOTH questions correctly. 1c. LOC Commands: Performs both tasks correctly. 2. Best Gaze: Normal 3. Visual: No visual loss 4. Facial Palsy: Partial paralysis (total or near-total paralysis of lower face) (able to raise both eyebrows now but can not tightly close the R eye and resist me trying to open it. Still with R facial droop.....much less pronounced than at admission and he is no longer drooling. ) 5a. Left Arm: No drift; arm holds 90 (or 45) degrees for full 10 seconds 5b. Right Arm: Drift; arm drifts downward but doesn?t hit the bed 6a. Left Leg: No drift; leg holds 30-degree position for full 5 seconds 6b. Right Leg: No drift; leg holds 30-degree position for full 5 seconds 7. Limb Ataxia: Absent (can not effectively testin the RUE due to weakness on the R side. No ataxia of the R leg. ) 8. Sensory: Normal; no sensory loss 9. Best Language: No aphasia; normal 10. Dysarthria: [id number] dysarthria; 11. Extinction and Inattention: No abnormality Total: 4 (NIHSS was 10 at admission to rehab) Stroke Questions Stroke Team Activated: No D/C Instructions Please Follow Up With: cardiology at [facility] Meaningful Use Info Meaningful Use Meaningful Use Diagnoses (Choose all that apply): Ischemic CVA CVA Therapy Assessed for PT,OT and/or ST?: Yes Ischemic Stroke Antithrombotic order at d/c?: Yes Dx of Atrial fib/flutter?: No Anticoagulant at discharge?: No Reason anticoagulant not ordered: Treatment not Indicated Statin Dosing Therapy Reference: STATIN DOSE THERAPY REFERENCE: * Patients > 75 years receive moderate or high dose statin therapy. * Patients 75 years or YOUNGER should receive HIGH intensity statin dose unless contraindicated. You will be required to document reason for non-treatment if statin daily dose does not meet guidelines. HIGH DOSE STATIN THERAPY DAILY Atorvastatin > than or = to 40 mg Rosuvastatin > than or = to 20 mg Amlodipine + Atorvastatin > than or = to 2.5/40 mg Ezetimibe + Simvastatin 10/80 mg Simvastatin 80mg Statins at discharge?: Yes If patient is 75 or younger, pt will be discharged on HIGH intensity statin.: Yes High intensity statin for patient 75 or younger not ordered due to: discharged on Atorvastatin 40 mg Primary Dx Acute Ischemic CVA?: Yes Reason IV thrombolytic not ordered: Procedure not Indicated Discharge Plan Admission Admit Date/Time: 07/13/24 19:26 Primary Reason for Your Visit: Post stroke debility Attending Provider: Lorraine Meza Primary Care Provider: Gurvinder Ziegler Discharge Orders/Prescriptions Prescriptions: New acetaminophen 325 mg Tablet 650 mg PO Q6H PRN PRN (Reason: Pain Score 1-10) Qty: 1 0RF nitroglycerin 0.1 mg/hr Patch 24 Hour 0.1 mg transdermal DAILY@0700 Qty: 1 0RF sennosides-docusate sodium [Stimulant Laxative Plus] 8.6-50 mg Tablet 2 tab PO BID PRN (Reason: Constipation) Qty: 1 0RF magnesium hydroxide 400 mg/5 mL Suspension 30 ml PO X1 PRN (Reason: Constipation) Qty: 30 0RF bisacodyl 10 mg Suppository 10 mg AL X1 PRN (Reason: Constipation) Qty: 1 0RF lisinopril 5 mg Tablet 5 mg PO DAILY Qty: 1 0RF nystatin [Nyamyc] 100,000 unit/gram Powder 1 applic topical BID Qty: 1 0RF Protocol: *Topical Application Instructions APPLICATION INSTRUCTIONS: apply to scrotum and groin menthol-zinc oxide [Calmoseptine] 0.44-20.6 % Ointment 1 applic topical BID Qty: 1 0RF Protocol: *Topical Application Instructions APPLICATION INSTRUCTIONS: apply to coccyx sertraline 50 mg Tablet 50 mg PO DAILY Qty: 1 0RF diclofenac sodium [Voltaren Arthritis Pain] 1 % gel 2 g topical TID Qty: 100 0RF Continued metoprolol succinate 25 mg tablet extended release 24 hr 25 mg PO DAILY oxymetazoline [12 Hour Nasal Relief [place]] 0.05 % spray,non-aerosol 2 spray intranasal Q12H PRN (Reason: congestion) aspirin 81 mg tablet,chewable 1 tab PO DAILY atorvastatin 40 mg tablet 40 mg PO QHS clopidogrel [Plavix] 75 mg tablet 75 mg PO DAILY Discontinued lisinopril 10 mg tablet 10 mg PO DAILY Referrals / Follow Up: Gurvinder Ziegler MD [Primary Care Provider] - Disposition Disposition (needs filled in before D/C Order can be placed): [facility] Facility Charges/Coding Visit Charges Inpatient E&M: 89012 Disch Hosp >30min
[2024-08-04 17:07] VITALS: BP 126/69; PULSE 59; RESP 18; TEMP 36.9; O2SAT 93
[2024-08-04] MEDS: Atorvastatin Calcium 40 MG Tablet PO (20:38)
[2024-08-05 01:11] VITALS: BMI 29.8
[2024-08-05 04:48] VITALS: BP 96/65; PULSE 56; RESP 18; TEMP 36.4; O2SAT 93
[2024-08-05 04:49] VITALS: BMI 29.6
[2024-08-05] MEDS: Enoxaparin 40 MG/0.4 ML Syringe SC (04:54)
[2024-08-05] MEDS: Arthritis Pain Compound 60 CLICK TUBE TOPICAL (04:55)
[2024-08-05] MEDS: Nitroglycerin 0.1 MG Patch TD (06:32)
[2024-08-05] MEDS: Aspirin 81 MG TAB.CHEW PO (08:03)
[2024-08-05] MEDS: Clopidogrel Bisulfate 75 MG Tablet PO (08:04)
[2024-08-05] MEDS: Sertraline 50 MG Tablet PO (08:04)
[2024-08-05 08:05] VITALS: BP 96/65
[2024-08-05] MEDS: Nystatin Powder 15gm Bottle 1 APPLIC TOPICAL (08:08)
[2024-08-05] MEDS: Menthol/Lanolin/Calamine/Znox 113 GM Tube 1 APPLIC TOPICAL (08:08)
[2024-08-05 11:00] VITALS: BMI 29.6
--- NOTE | 2024-08-05 11:30 | NURSING ---
Report given to skilled nursing and patient dc'd at this time with ambulance company.
== END 2024-08-05 11:30 | disposition skilled nursing facility (03) | DRG 56 ==
PROVIDERS: Admitting Provider Internal Medicine; PCP Family Medicine; Visit Provider Internal Medicine
DX: I69.351 Hemiplegia and hemiparesis following cerebral infarction affecting right dominant side (principal); I22.2 Subsequent non-ST elevation (NSTEMI) myocardial infarction; E87.1 Hypo-osmolality and hyponatremia; Q21.12 Patent foramen ovale; J44.9 Chronic obstructive pulmonary disease, unspecified; I69.322 Dysarthria following cerebral infarction; I10 Essential (primary) hypertension; F32.A Depression, unspecified; I25.10 Atherosclerotic heart disease of native coronary artery without angina pectoris; E78.00 Pure hypercholesterolemia, unspecified; I69.392 Facial weakness following cerebral infarction; I69.318 Other symptoms and signs involving cognitive functions following cerebral infarction; Z87.891 Personal history of nicotine dependence; R79.89 Other specified abnormal findings of blood chemistry; Z79.82 Long term (current) use of aspirin; Z79.02 Long term (current) use of antithrombotics/antiplatelets; Z79.899 Other long term (current) drug therapy; R06.09 Other forms of dyspnea
CPT/HCPCS: 36415; 80048; 80053; 83735; 84100; 85014; 85018; 85025; 85027; 87811; 92507; 92523; 92526; 92610; 93005; 94668; 96125; 97110; 97112; 97116; 97129; 97130; 97162; 97166; 97530; 97535; 97802; J7030; A4216

== ENCOUNTER 2025-11-06 15:19 | Inpatient (IN) | payer MEDICARE, SELFPAY ==
[2025-11-06] VITALS (11 sets, daily range): BP systolic 103–142; BP diastolic 70–96; PULSE 81–95; RESP 14–18; TEMP 36.2–36.9; O2SAT 93–99; BMI 28.5
--- NOTE | 2025-11-06 15:44 | ED.VIS.FALL ---
HPI HPI - Fall History of Present Illness Chief Complaint: Fall Narrative Narrative: Patient is a 6-year-old male presenting to the emergency department after a fall. Patient has a past medical history of CVA with resultant right sided hemiparesis and cognitive dysfunction on Plavix, CAD, hypertension, hyperlipidemia. Patient states that he was outside and he slipped on ice causing him to fall onto his right hip. He denies hitting his head or any loss of consciousness. He denies any neck or back pain. Denies any pain in his upper extremities. Endorses pain to his right hip. PFSH PFSH Medical History Excessive drinking alcohol CAD (coronary artery disease), [place] coronary artery Subsequent non-ST elevation (NSTEMI) myocardial infarction Ischemic cerebrovascular accident (CVA) PFO (patent foramen ovale) HTN (hypertension) HLD (hyperlipidemia) Tobacco dependence in remission Home Medications ?Medication ?Instructions ?Recorded ?Last Taken ?Type atorvastatin 40 mg tablet 40 mg PO QHS cholesterol 07/13/24 07/12/24 History Held on 11/06/25. Instructions: pt hasnt been taking clopidogrel 75 mg tablet (Plavix) 75 mg PO DAILY afib 07/13/24 Unknown History lisinopril 5 mg tablet 5 mg PO DAILY #1 TAB 08/04/24 Unknown Rx sertraline 50 mg tablet 50 mg PO DAILY PRN anxiety 11/06/25 Unknown History Allergy/AdvReac Type Severity Reaction Status Date / Time No Known Allergies Allergy Verified 11/06/25 15:29 Family History Mother Alzheimer's dementia Carotid stenosis + hx of CEA Surgical History History of tonsillectomy Social History household members: none housing: house number of children: 1 current occupational status: employed leisure activities: exercise Smoking Status: Former smoker Tobacco: How many years used: 8 how long ago did patient quit smoking: Smoked 1 pack/day x 8 years. Quit in 1998 alcohol intake: current alcohol intake frequency: 3 or more drinks per day Alcohol type: beer Previous attempts at quittin substance use type: does not use ROS ROS ED ROS Narrative see HPI EXAM Physical Exam Narrative Exam Narrative: Vital signs: Reviewed General: Alert and oriented x 3. No acute distress. Well-appearing, nontoxic. HEENT: Head is normocephalic and atraumatic. No signs of trauma to the head, no cephalhematoma, lacerations or abrasions. Midface is stable and nontender to palpation. Pupils 2 mm bilaterally equal round and reactive. Nares are patent. No septal hematoma oropharynx and throat exams normal. No oropharyngeal trauma Neck: Supple without lymphadenopathy nontender. No midline cervical spinal tenderness to palpation. No step-offs or deformities. Cardiovascular: Regular rate and rhythm, no murmurs. No rubs or gallops. Normal S1 and S2 Respiratory: Clear to auscultation bilaterally. No wheezes, rales, rhonchi Chest: Chest wall is atraumatic and nontender to palpation. No crepitus, erythema or ecchymosis. Abdominal: Soft and nontender. Normal bowel sounds. No guarding or rebound. Nonsurgical abdomen Extremities: Hips are stable to palpation. There is tenderness to palpation of the right lateral hip. Right leg is externally rotated and shortened. DP pulses intact bilaterally. Sensation intact. Patient able to wiggle toes on the right. Left leg and bilateral upper extremities are atraumatic and nontender to palpation with normal active range of motion. Back: No midline thoracic or lumbar spinal tenderness to palpation. No step-offs or deformities. No trauma to the back. Skin: No rash or redness. Neurological: Baseline neurologic exam per patient. Right sided facial droop. Right arm weakness. The rest of the physical exam is unremarkable Const Vital Signs: 11/06/25 15:21 11/06/25 15:32 11/06/25 17:10 Temperature 97.2 F L Temperature Source Temporal Pulse Rate 81 93 Respiratory Rate 18 14 Respiratory Effort Normal Respiratory Depth Normal Respiratory Pattern Normal Blood Pressure 115/77 Blood Pressure Mean 89 Pulse Ox 93 96 Oxygen Delivery Method Room Air Room Air 11/06/25 17:12 11/06/25 17:15 11/06/25 17:30 Temperature Temperature Source Pulse Rate 86 86 82 Respiratory Rate 17 18 15 Respiratory Effort Respiratory Depth Respiratory Pattern Blood Pressure 118/79 103/77 Blood Pressure Mean 91 87 Pulse Ox 99 Oxygen Delivery Method 11/06/25 17:30 Temperature Temperature Source Pulse Rate Respiratory Rate Respiratory Effort Respiratory Depth Respiratory Pattern Blood Pressure 107/70 Blood Pressure Mean 82 Pulse Ox Oxygen Delivery Method MDM MDM MDM Narrative Medical decision making narrative: Patient is a 69-year-old male presenting to the emergency department for a mechanical fall with right hip pain. Patient was seen and examined. Vitals are stable. Patient resting in bed comfortably in no acute distress. Given the patient's age and his fall we will obtain a CT the brain and cervical spine. Will also obtain a right hip and pelvis x-ray. Will also obtain a chest x-ray to evaluate for any rib fractures however I think this is less likely but will complete the traumatic workup. Chest x-ray reviewed by myself, no rib fractures or pneumothorax noted. X-rays were reviewed by myself and there is evidence of a right femoral neck fracture. Radiology read with acute subcapital right femoral neck fracture. CT brain shows no acute intracranial process. CT of cervical spine shows no cervical spine fracture or malalignment. Lab work obtained for preop. CBC with very mild nonspecific leukocytosis of 12.8 and a normal hemoglobin. BMP with no significant abnormalities. EKG ordered for preop and shows normal sinus rhythm at a rate of 85 with a sinus arrhythmia. There is no ischemic changes. Patient updated on the imaging findings and need for admission for operation tomorrow. I did speak with Dr. Titus, on-call orthopedist who recommended hospitalist admission and he will see the patient tomorrow for surgical repair. Spoke with hospitalist, Dr. Vargas, who will admit the patient for further management. Clinical impression Right hip fracture Mechanical fall History & Record Review Discussion w/independent historian: Patient Lab Data Attestation: I reviewed the patient's lab results. Labs: Laboratory Results - last 24 hr 11/06/25 16:10 WBC 12.8 H RBC 5.04 Hgb 15.7 Hct 47.0 MCV 93.3 MCH 31.2 MCHC 33.4 RDW Std Deviation 43.2 RDW Coeff of Nicole 12.6 Plt Count 259 MPV 9.7 Immature Gran % (Auto) 0.500 Neut % (Auto) 87.9 H Lymph % (Auto) 6.2 L [place] % (Auto) 4.2 Eos % (Auto) 0.9 Baso % (Auto) 0.3 Absolute Neuts (auto) 11.3 H Absolute Lymphs (auto) 0.79 L Nucleated RBC % 0 Sodium 135 Potassium 4.7 Chloride 101 Carbon Dioxide 21.3 Anion Gap 13 BUN 11 Creatinine 1.07 Est GFR (MDRD) Non-Af 75 BUN/Creatinine Ratio 10.1 Glucose 119 H Calcium 9.2 Radiography Diagnostic Testing: Clinical Impression(s) from Imaging Studies Brain CT 11/06/25 16:25 IMPRESSION: No acute intracranial process Reading Location: [facility] Chest X-Ray 11/06/25 16:40 IMPRESSION: No Acute Findings. Reading Location: [id number] Hip/Pelvis X-Ray 11/06/25 16:40 IMPRESSION: Acute subcapital right femoral neck fracture. Reading Location: [facility] Discharge Plan Triage Chief Complaint: Fall ED Provider: Michelle Frye Dx/Rx/DC Orders Primary Care Provider: Priyank Dia
[2025-11-06] MEDS: fentaNYL 100 MCG/2 ML Ampul 50 MCG IV ×2 (16:07→17:11)
[2025-11-06 16:23] LABS: Hematocrit 47.0 % (40-54); Hemoglobin 15.7 g/dL (13.0-16.5); Immature Granulocytes Count 0.070 X10^3/uL (0.0-0.0); Mean Corp Hgb Conc 33.4 g/dL (32-36); Mean Corpuscular Volume 93.3 fL (80-94); Mean Platelet Vol. 9.7 fl (6.2-12.0); NRBC Flagged by Analyzer 0 % (0-5); Platelet Count 259 K/mm3 (150-450); RBC Distribution Width CV 12.6 % (11.6-14.6); RBC Distribution Width SD 43.2 fl (35.1-43.9); Red Blood Count 5.04 M/mm3 (4.6-6.2); White Blood Count 12.8 K/mm3 (4.4-11.0)
--- NOTE | 2025-11-06 16:25 | CT_ITS ---
PROCEDURE: BRAIN/HEAD WITHOUT CONTRAST 11/06/2025 REASON FOR EXAM: FALL TECHNIQUE: Procedure Code: CTBR Modality: CT Procedure: BRAIN/HEAD WITHOUT CONTRAST Coronal and Sagittal reconstruction series were provided. One or more dose reduction techniques were used (e.g., Automated exposure control, adjustment of the mA and/or kV according to patient size, use of iterative reconstruction technique. RADIATION DOSE SUMMARY: DLP: 1154 mGycm FINDINGS: There is no acute infarct, intracranial hemorrhage, or mass effect. There is no hydrocephalus or significant midline shift. Chronic lacunar infarction of the left basal ganglia, and left angulo radiata hypodensity likely from prior chronic infarction. There is moderate chronic microvascular ischemic changes and [id number] parenchymal volume loss. No acute, depressed calvarial fractures. No large scalp hematomas. The paranasal sinuses are clear. CT/Brain/Head without Contrast IMPRESSION: No acute intracranial process Reading Location: [id number]
--- NOTE | 2025-11-06 16:40 | RAD_ITS ---
PROCEDURE: CHEST 1 VIEW 11/06/2025 REASON FOR EXAM: FALL, PAIN TECHNIQUE: Frontal view of the chest. COMPARISON: None. FINDINGS: LUNGS AND PLEURA: The lungs are clear. No pleural effusion or pneumothorax. HEART AND MEDIASTINUM: The heart size and mediastinal contours are normal. Sternal closure devices present. AORTA: Mildly calcified aortic arch. BONES: No acute osseous abnormality. RAD/Chest 1 View IMPRESSION: No Acute Findings. Reading Location: [id number]
--- NOTE | 2025-11-06 16:40 | RAD_ITS ---
PROCEDURE: HIP, UNI W/ PELVIS 2-3 VIEWS 11/06/2025 REASON FOR EXAM: FALL, DEFORMITY TECHNIQUE: Procedure Code: RAD Modality: DX Procedure: HIP, UNI W/ PELVIS 2-3 VIEWS Laterality: Right COMPARISON: None. FINDINGS: BONES: Acute fracture in the subcapital region of the right femoral neck with coxa vara alignment. JOINTS: No dislocation. The joint spaces are preserved. SOFT TISSUES: Vascular calcifications present. RAD/HIP, UNI W/ Pelvis 2-3 Views IMPRESSION: Acute subcapital right femoral neck fracture. Reading Location: [id number]
[2025-11-06 16:43] LABS: Anion Gap 13 (5-15); BUN 11 mg/dL (4-19); BUN/Creat Ratio 10.1 RATIO (10-20); Calcium,Total 9.2 mg/dL (7.6-11.0); Carbon Dioxide 21.3 mmol/L (21.0-32.0); Chloride 101 mmol/L (98-108); Glucose 119 mg/dL (70-99); Potassium 4.7 mmol/L (3.3-5.1)
--- NOTE | 2025-11-06 17:34 | PCM.HP.STD ---
HPI - General General Date of Admission: 11/06/25 Date of Service: 11/06/25 Chief Complaint: Fall with right hip pain HPI Narrative CISCO SAINI, is a 69 M who presented to [facility] ED on 11/06/2025 with right hip pain after a fall at home. Patient lives at home alone. Medical history significant for CVA with right-sided deficits, CAD s/p CABG, hypertension, hyperlipidemia, and former alcohol abuse. Patient had an acute CVA with right-sided hemiparesis last June and was hospitalized at [facility] for this. He was then discharged to our TCU and was there from 07/14-08/04. He was then able to be discharged home. He slowly regained right-sided function during hospitalization, and he notes today that he is able to do most things on his own without issue despite some degree of ongoing right-sided weakness. He notably had CABG done last August at an outside hospital as well. Today he was walking from his shop outside back to the house when he slipped on the snow and fell onto his right side. He had immediate right hip pain after the fall. He was able to pull himself back inside and then called EMS to bring him in. In the ED hip/pelvis x-ray confirmed an acute subcapital right femoral neck fracture. CT brain and C-spine were nonacute. Chest x-ray was unremarkable. He was normotensive, in normal sinus rhythm, afebrile and stable on room air at rest. Mild leukocytosis with WBC count 12.8 noted, labs otherwise benign. Case was discussed with Dr. Titus and plan is for surgery tomorrow morning. Hospitalist was contacted for admission. I saw the patient at bedside in the ED. Patient had been given 2 doses of IV fentanyl prior to me seeing him and noted that his hip pain is well-controlled as long as he does not move his leg. He denies any other acute concerns currently. Will be admitted for further management. [facility] Medical History Excessive drinking alcohol CAD (coronary artery disease), [place] coronary artery Subsequent non-ST elevation (NSTEMI) myocardial infarction Ischemic cerebrovascular accident (CVA) PFO (patent foramen ovale) HTN (hypertension) HLD (hyperlipidemia) Tobacco dependence in remission Home Medications ?Medication ?Instructions ?Recorded ?Last Taken ?Type atorvastatin 40 mg tablet 40 mg PO QHS cholesterol 07/13/24 07/12/24 History Held on 11/06/25. Instructions: pt hasnt been taking clopidogrel 75 mg tablet (Plavix) 75 mg PO DAILY afib 07/13/24 Unknown History lisinopril 5 mg tablet 5 mg PO DAILY #1 TAB 08/04/24 Unknown Rx sertraline 50 mg tablet 50 mg PO DAILY PRN anxiety 11/06/25 Unknown History Allergy/AdvReac Type Severity Reaction Status Date / Time No Known Allergies Allergy Verified 11/06/25 15:29 Family History Mother Alzheimer's dementia Carotid stenosis + hx of CEA Surgical History History of tonsillectomy Social History household members: none housing: house number of children: 1 current occupational status: employed leisure activities: exercise Smoking Status: Former smoker Tobacco: How many years used: 8 how long ago did patient quit smoking: Smoked 1 pack/day x 8 years. Quit in 1998 alcohol intake: current alcohol intake frequency: 3 or more drinks per day Alcohol type: beer Previous attempts at quittin substance use type: does not use ROS Constitutional Constitutional: Reports fatigue; Denies chills or fever(s) Cardiovascular Cardiovascular: Denies chest pain Respiratory/Chest Respiratory/Chest: Denies shortness of breath at rest Gastrointestinal Gastrointestinal: Denies abdominal pain Genitourinary Genitourinary: Denies dysuria Musculoskeletal Musculoskeletal: Reports joint pain; Denies arthralgias or myalgias Neurologic Neurologic: Denies dizziness, headache(s), numbness or tingling Vital Signs Vital Signs Vital Signs: 11/06/25 15:21 11/06/25 15:32 11/06/25 17:10 Temperature 97.2 F L Temperature Source Temporal Pulse Rate 81 93 Respiratory Rate 18 14 Respiratory Effort Normal Respiratory Depth Normal Respiratory Pattern Normal Blood Pressure 115/77 Blood Pressure Mean 89 Pulse Ox 93 96 Oxygen Delivery Method Room Air Room Air 11/06/25 17:12 Temperature Temperature Source Pulse Rate 86 Respiratory Rate 17 Respiratory Effort Respiratory Depth Respiratory Pattern Blood Pressure 118/79 Blood Pressure Mean 91 Pulse Ox 99 Oxygen Delivery Method Physical Exam Const alert, oriented x3, no apparent distress and average body habitus Constitutional Narrative: Elderly male, mildly fatigued appearing, otherwise laying back in bed fairly comfortably, conversing normally, in no acute distress. General Appearance: cooperative and comfortable HEENT normocephalic, head/scalp atraumatic, hearing grossly normal bilaterally, nasal mucous membranes and turbinates normal and moist oral mucous membranes Eyes PERRL, EOMs intact bilaterally and conjunctivae normal Neck full ROM Chest inspection of chest normal Resp normal respiratory effort, normal air movement, no use of accessory muscles and clear to auscultation bilaterally Cardio regular rate, regular rhythm, no murmurs and peripheral pulses 2+ throughout GI normal to inspection, nondistended, normoactive bowel sounds, soft to palpation, non-tender and non-distended Back/Spine normal ROM Extremity Extremity Narrative: Right leg shortened and externally rotated. Skin no rashes or lesions noted Neuro Speech: speech normal Psych mental status grossly normal Results Lab / Micro Data 11/06/25 16:10 11/06/25 16:10 Labs: Laboratory Results - last 24 hr 11/06/25 16:10: WBC 12.8 H, RBC 5.04, Hgb 15.7, Hct 47.0, MCV 93.3, MCH 31.2, MCHC 33.4, RDW Std Deviation 43.2, RDW Coeff of Nicole 12.6, Plt Count 259, MPV 9.7, Immature Gran % (Auto) 0.500, Neut % (Auto) 87.9 H, Lymph % (Auto) 6.2 L, [place] % (Auto) 4.2, Eos % (Auto) 0.9, Baso % (Auto) 0.3, Absolute Neuts (auto) 11.3 H, Absolute Lymphs (auto) 0.79 L, Nucleated RBC % 0, Sodium 135, Potassium 4.7, Chloride 101, Carbon Dioxide 21.3, Anion Gap 13, BUN 11, Creatinine 1.07, Est GFR (MDRD) Non-Af 75, BUN/Creatinine Ratio 10.1, Glucose 119 H, Calcium 9.2 Imaging Radiology Impression Brain CT 11/06/25 16:25 IMPRESSION: No acute intracranial process Reading Location: [facility] Chest X-Ray 11/06/25 16:40 IMPRESSION: No Acute Findings. Reading Location: [facility] Hip/Pelvis X-Ray 11/06/25 16:40 IMPRESSION: Acute subcapital right femoral neck fracture. Reading Location: [facility] Cervical Spine CT 11/06/25 19:25 IMPRESSION: 1. No cervical spinal fracture or acute malalignment identified. 2. Additional description as above. Reading Location: [id number] Assessment & Plan Assessment/Plan (1) Fracture of femoral neck, right: PLAN: Plan Patient is a 69-year-old male who presented to [facility] ED on 11/06/2025 with right hip pain after a fall at home. 1. Right femoral fracture secondary to mechanical fall ? Admit under inpatient status to [facility]. Orthopedic surgery consulted. PT/OT/case management consulted. Hip/pelvis x-ray showed an acute subcapital right femoral neck fracture. Preoperative evaluation as below. Plan for surgery tomorrow, n.p.o. at midnight. SCDs for DVT prophylaxis for now. Pain control with scheduled Tylenol, oxycodone as needed and IV morphine as needed. Patient lives at home alone, suspect he will need SNF placement at discharge. 2. Preoperative evaluation ? Labs/imaging: Hemoglobin 15.7, creatinine 1.07, both stable at baseline. Chest x-ray unremarkable and patient satting well on room air. No further labs or imaging needed preoperatively. Follow-up CBC and BMP postoperatively. ? Cardiac eval: Patient with CABG x 3 in September 2024. Echo at that time with normal EF and no other concerning findings. Patient in normal sinus rhythm, normotensive, euvolemic and stable on room air on admit. EKG with normal sinus rhythm and no ST changes. No need for further cardiac workup preoperatively. ? Medications: Patient is on Plavix daily at home and last dose was morning of admission; will hold Plavix at this time and defer to orthopedics on timing of restarting this. Will hold lisinopril preoperatively. Okay to continue home statin. ? Prior procedural complications: None. ? Recommendation: Patient is medically optimized for procedure. 3. History of CVA with residual right-sided deficits, history of CAD with CABG, hypertension, hyperlipidemia ? See HPI for further details. In short, patient had CVA with left acute infarction resulting in right-sided hemiparesis in June 2024. He has slowly regained right-sided functioning over the past several months. Had CABG x 3 at [facility] in September 2024 and has done well since then. Holding Plavix and lisinopril for now as above. Okay to continue home statin. 4. Anxiety/depression ? Patient reports taking sertraline only as needed for anxiety; states it makes him sleepy so he does not take it often. Educated patient that this medication is a daily medication so either needs to be taken every day or not at all. Will hold sertraline at this time. 5. Former alcohol abuse and former tobacco abuse ? Encouraged continued cessation. DVT prophylaxis: SCDs CODE STATUS: Full code, verified Expected disposition: TBD Total clinical time spent by myself addressing the patient's medical issues, reviewing all the data, and collaborating with patient's care team: 79 minutes. Charges/Coding Visit Charges Inpatient E&M: 89328 Init Hosp L3
--- NOTE | 2025-11-06 17:54 | EKG12_ITS ---
Test Reason : FALL Blood Pressure : */* mmHG Vent. Rate : 85 BPM Atrial Rate : 85 BPM P-R Int : 178 ms QRS Dur : 100 ms QT Int : 392 ms P-R-T Axes : 59 43 16 degrees QTcB Int : 466 ms Normal sinus rhythm with sinus arrhythmia Normal ECG Confirmed by Arnoldo Dewitt ([id number]), department editor VARSHA LLOYD ([id number]) on 11/07/2025 10:25:03 AM Referred By: CHARY Confirmed By: Arnoldo Dewitt
--- NOTE | 2025-11-06 19:25 | CT_ITS ---
PROCEDURE: SPINE CERVICAL WITHOUT CONTRAS 11/06/2025 REASON FOR EXAM: FALL TECHNIQUE: Procedure Code: CTSPC Modality: CT Procedure: SPINE CERVICAL WITHOUT CONTRAS Coronal and Sagittal reconstruction series were generated. One or more dose reduction techniques were used (e.g., Automated exposure control, adjustment of the mA and/or kV according to patient size, use of iterative reconstruction technique. RADIATION DOSE SUMMARY: CTDlvol: 47.06+ 19.40 mGy DLP: 1153.62 mGycm Note that this represents the total for all concurrent CT exams and associated accounts administrator imaging. COMPARISON: None FINDINGS: Starvation exam limited photon starvation artifact presumably related to the superimposed shoulders as well as above the level of the shoulders, presumably related to dental amalgam. No cervical spinal fracture or acute malalignment identified. Vertebral body heights are preserved. Straightening of the normal cervical lordosis may be positional, degenerative, or related to pain/muscular spasm. Trace likely degenerative anterolisthesis at C2-C3 and C3-C4. Overall moderate predominantly discogenic multilevel cervical spondylosis. Variable bony spinal canal stenoses up to at least moderate. Variable bony foraminal stenoses up to at least moderate/severe on the RIGHT. These are suboptimally depicted by CT.. Atherosclerosis. CT/Spine Cervical without Contras IMPRESSION: 1. No cervical spinal fracture or acute malalignment identified. 2. Additional description as above. Reading Location: [facility]
--- OUTSIDE RECORDS SUMMARY | 2025-11-06 20:44 | XMS RPT_ITS | CCD ---
Author Organization [facility] Care Team Providers Care Phlebotomy Director Name Role Phone Debbie Barba Attending Unavailable Trinity James Primary Care Unavailable Trinity James Attending Unavailable Trinity James Primary Care Unavailable Trinity James Admitting Unavailable DARWIN TONY Attending Unavailable DARWIN TONY Attending Unavailable DARWIN TONY Referring Unavailable Unavailable Primary Care Provider Unavailclarence e Semenbertha, Lorraine Pitts Consulting Unavaila ble Debbie Barba Primary Care Unavailable Sementi, Lorraine Pitts Admitting Unavaila ble Sementi, Lorraine Pitts Attending Unavaila ble Sementi, Lorraine Pitts Referring Unavaila ble CecilioThony nix Attending Unavailable Debbie Barba Primary Care Unavailable Sementi, Lorraine Pitts Admitting Unavaila ble Sementi, Lorraine Pitts Attending Unavaila ble Debbie Barba Primary Care Unavailable Debbie Barba MD Primary Care Provider Debbie Barba MD Primary Care Provider ELISABETH ATKINS Attending Unavailable DEBBIE BARBA Primary Care Unavailable ELISABETH ATKINS Admitting Unavailable ELISABETH ATKINS Attending Unavailable DEBBIE BARBA Primary Care Unavailable DEBBIE BARBA Referring Unavailable LAURA ERICKSON Attending Unavailable DEBBIE BARBA Referring Unavailable DEBBIE BARBA Primary Care Unavailable ELISABETH ATKINS Referring Unavailable DEBBIE BARBA Primary Care Unavailable ELISABETH ATKINS Referring Unavailable DEBBIE BARBA Primary Care Unavailable LAURA ERICKSON Referring Unavailable DEBBIE BARBA Primary Care Unavailable JEAN-PAUL JOHNSON Referring Unavailable DEBBIE BARBA Primary Care Unavailable NANDO ARROYO Referring Unavailable BARBA, DEBBIE O Primary Care Unavailable ELISABETH ATKINS Attending Unavailable BARBA, DEBBIE O Primary Care Unavailable JESUS CHRISTIE Attending Unavailable NO, PHYSICIAN Primary Care Unavailable [facility]OCATIONAL REHABILITATION ADMINISTRATORLulu Primary Care Provider [facility]OCATIONAL REHABILITATION ADMINISTRATOR, Lulu [place] Primary Care Provider LULU CARSON Referring Unavailable LULU CARSON Primary Care Unavailable LULU CARSON Referring Unavailable LULU CARSON Primary Care Unavailable BARBA, DEBBIE Justa Primary Care Unavailable CANDELARIO MONTANA Attending Unavailable CANDELARIO MONTANA Admitting Unavailable EMANUEL GIRALDO Consulting Unava ilable ELISABETH ATKINS Referring Unavailable BARBA, DEBBIE Justa Primary Care Unavailable ELISABETH ATKINS Referring Unavailable BARBA, DEBBIE O Primary Care Unavailable ELISABETH ATKINS Referring Unavailable BARBA, DEBBIE O Primary Care Unavailable VIRGINIA PUTNAM Attending Unavailable BARBA, DEBBIE O Primary Care Unavailable EMANUEL GIRALDO Attending Unava ilable BARBA, DEBBIE O Primary Care Unavailable LULU CARSON Attending Unavailable LULU CARSON Primary Care Unavailable LULU CARSON Attending Unavailable LULU CARSON Primary Care Unavailable LULU CARSON Attending Unavailable LULU CARSON Primary Care Unavailable Allergies Allergy Classification Reported Allergen(s) Allergy Type Date of Onset Reaction(s) Facility (1 source) No Known Medication Allergies; Translations: [No Known Medication Allergies] Propensity to adverse reactions to drug (disorder) [facility] Medications Current Medications Medication Drug Class(es) Dates Sig (Normalized) Sig (Original) acetaminophen 325 mg oral tablet (17 sources) Start: 09-27-2024 take 1 tablet by mouth every six hours Start: 07-08-2024 take 1 tablet by marline th every four hours as needed acetaminophen (Tylenol) tablet 650 mg End: 03-02-2025 take 2 tablets by mouth every four hours as needed acetaminophen (Tylenol) 325 mg tablet Take 2 tablets (650 mg) by mouth every 4 hours if needed for mild pain (1 - 3) or fever (temp greater than 38.0 C). 03/02/2025 Discontinued (Therapy completed) [id number] 200 actuat albuterol 0.09 mg/actuat metered dose inhaler (2 sources) beta2-Adrenergic Agonist Start: 12-13-2024 End: 03-02-2025 take 2 puff(s) by inhalation every four hours albuterol 90 mcg/actuation inhaler Inhale 2 puffs every 4 hours if needed. 12/13/2024 03/02/2025 Discontinued (Therapy completed) aspirin 81 mg delayed release oral tablet (20 sources) Platelet Aggregation Inhibitor, Nonsteroidal Anti-inflammatory Drug Start: 10-05-2024 End: 10-05-2025 take 1 tablet by mouth once daily aspirin 81 mg EC tablet Indications: S/P CABG (coronary artery bypass graft) Take 1 tablet (81 mg) by mouth once daily. 10/05/2024 10/05/2025 Active Start: 10-03-2024 Start: 07-08-2024 End: 10-04-2024 aspirin 81 mg chewable table t Indications: CVA (cerebrovascular accident due to intracerebral hemorrhage) (Multi) Chew 1 tablet (81 mg) once daily. 30 tablet 07/14/2024 08/13/2024 Active Start: 07-08-2024 End: 07-08-2024 take 325 mg by mouth once as needed for pain 325 mg, oral, Once, On 07/08/24 at 0205, For 1 dose, If ordered PRN for pain, nurse is permitted to administer this medication for higher pain scores based on patient preference? Yes take 1 tablet by marline th once daily aspirin 81 mg EC tablet Take 1 tablet (81 mg) by mouth once daily. Suspended atorvastatin 80 mg oral tablet (18 sources) HMG-CoA Reductase Inhibitor Start: 09-28-2024 End: 12-21-2025 take 1 tablet by mouth once daily at bedtime atorvastatin (Lipitor) 80 mg tablet Indications: S/P CABG (coronary artery bypass graft) Take 1 tablet (80 mg) by mouth once daily at bedtime. 90 tablet 3 12/21/2024 12/21/2025 Active Start: 07-09-2024 End: 10-04-2024 take 1 tablet by mouth once daily at bedtime atorvastatin (Lipitor) 40 mg tablet Indications: CVA (cerebrovascular accident due to intracerebral hemorrhage) (Multi) Take 1 tablet (40 mg) by mouth once daily at bedtime. 30 tablet 07/13/2024 08/12/2024 Active Start: 07-08-2024 End: 07-09-2024 take 10 mg by mouth once daily 10 mg, oral, Nightly, First dose on 07/08/24 at 2100 azithromycin 250 mg oral tablet (1 source) Macrolide Antimicrobial Start: 12-13-2024 End: 12-21-2024 azithromycin (Zithromax) 250 mg tablet Take 2 pills on day 1, then take 1 pill daily for the next 4 days. . 12/13/2024 12/21/2024 Discontinued (Therapy completed) benzonatate 100 mg oral capsule (2 sources) Non-narcotic Antitussive Start: 12-13-2024 End: 03-02-2025 benzonatate (Tessalon) 100 mg capsule 12/13/2024 03/02/2025 Discontinued (Therapy completed) bisacodyl 10 mg rectal suppository (15 sources) Stimulant Laxative End: 03-02-2025 take 10 mg rectal route every twenty-four hours as needed bisacodyl (Dulcolax, bisacodyl,) 10 mg suppository Insert 1 suppository (10 mg) into the rectum once daily as needed for constipation. 03/02/2025 Discontinued (Med List Cleanup) chlorhexidine gluconate 40 mg/ml medicated liquid soap (8 sources) Start: 09-19-2024 End: 10-04-2024 Start: 09-19-2024 End: 10-04-2024 clopidogrel 75 mg oral tablet (20 sources) [id number] Platelet Inhibitor Start: 07-11-2024 End: 12-21-2025 take 1 tablet by mouth once daily clopidogrel (Plavix) 75 mg tablet Indications: S/P CABG (coronary artery bypass graft) Take 1 tablet (75 mg) by mouth once daily. 90 tablet 3 12/21/2024 12/21/2025 Active 12 hr dextromethorphan hydrobromide 30 mg / guaiFENesin 600 mg extended release oral tablet (5 sources) Uncompetitive K-utulob-O-aspartate Receptor Antagonist, Sigma-1 Agonist End: 03-02-2025 take 1 tablet by mouth every twelve hours dextromethorphan- guaifenesin (Mucinex DM) 30-600 mg 12 hr tablet Take 1 tablet by mouth every 12 hours. Do not crush, chew, or split. 03/02/2025 Discontinued (Therapy completed) diazePAM 2 mg oral tablet (2 sources) Benzodiazepine Start: 02-20-2019 End: 02-22-2019 take 1 tablet by mouth every eight hours as needed diazepam 2 MG Tab tablet Indications: Vertigo Take 1 tablet by mouth every 8 hours as needed for Vertigo for up to 2 days. 5 tablet 0 02/20/2019 02/22/2019 Active Start: 02-20-2019 diazepam (DANITZA UM) injection 2.5 mg docusate sodium 100 mg oral capsule (1 source) Start: 10-04-2024 furosemide 20 mg oral tablet (7 sources) Loop Diuretic Start: 10-05-2024 End: 03-02-2025 take 1 tablet by mouth once daily furosemide (Lasix) 20 mg tablet Indications: S/P CABG (coronary artery bypass graft) Take 1 tablet (20 mg) by mouth once daily for 3 days. 10/05/2024 03/02/2025 Discontinued (Therapy completed) Start: 10-02-2024 Start: 09-30-2024 gabapentin 100 mg oral capsu le (16 sources) Anti-epileptic Agent Start: 09-27-2024 End: 03-02-2025 take 2 capsules by mouth twice daily gabapentin (Neurontin) 100 mg capsule Take 2 capsules (200 mg) by mouth 2 times a day. 03/02/2025 Discontinued (Therapy completed) glucagon (rdna) 1 mg injection (2 sources) Antihypoglycemic Agent Start: 09-28-2024 50 ml glucose 500 mg/ml prefilled syringe (2 sources) Start: 09-28-2024 1 ml heparin sodium, porcine 5000 unt/ml injection (2 sources) Unfractionated Heparin, Anti-coagulant Start: 09-28-2024 inject 5000 [IU] by subcutaneous injection every eight hours Start: 07-08-2024 End: 07-10-2024 0-4,000 Units/hr (0-40 mL/hr ), intravenous, Continuous, Starting on 07/08/24 at 0400, Until 07/10/24 at 2004, Low Intensity Heparin Protocol (70-124kg) Initial Dose: 12 units/kg/hr --> Use heparin calculator for units/hr rate Maximum Initial Dose: 1000 units/hr Recheck Heparin Assay, UFH level 4 hours after any rate change, or per protocol. Titration Table: Heparin Assay, UFH 1.2: No Bolus. HOLD heparin infusion for 1 hour, then recheck heparin assay. If repeat is > 0.6, continue to HOLD INFUSION. Confirm last draw was performed correctly (pump was paused for a minimum of 2 minutes, sample NOT drawn off line/lumen where medication was infusing) and contact provider for further orders. If repeat is hydrALAZINE hydrochloride 25 mg oral tablet (1 source) Arteriolar Vasodilator Start: 07-11-2024 take 1 tablet by mouth every six hours as needed 25 mg, oral, Every 6 hours PRN, systolic blood pressure greater than 220 mm Hg, Starting on Wed07/11/24 at 0952 lisinopril 5 mg oral tablet (20 sources) Angiotensin Converting Enzyme Inhibitor Start: 05-02-2025 End: 10-29-2025 take 1 tablet by mouth once daily lisinopril 5 mg tablet Indications: Primary hypertension Take 1 tablet (5 mg) by mouth once daily. 90 tablet 1 05/02/2025 10/29/2025 Active Start: 10-04-2024 End: 12-21-2025 take 1 tablet by mouth once daily lisinopril 2.5 mg tablet Indications: S/P CABG (coronary artery bypass graft) Take 1 tablet (2.5 mg) by mouth once daily. 90 tablet 3 12/21/2024 05/02/2025 Discontinued (Ineffective) Start: 07-12-2024 End: 09-05-2024 take 1 tablet by mouth once daily lisinopril 10 mg tablet Indications: CVA (cerebrovascular accident due to intracerebral hemorrhage) (Multi) Take 1 tablet (10 mg) by mouth once daily. 30 tablet 07/14/2024 08/13/2024 Active End: 10-04-2024 loratadine 10 mg oral tablet (2 sources) Start: 10-09-2024 take 1 tablet by marline th every twenty-four hours as needed loratadine (Claritin) 10 mg tablet Take 1 tablet (10 mg) by mouth once daily as needed for allergies. 10/09/2024 Active magnesium hydroxide 240 mg/ml oral suspension (15 sources) End: 03-02-2025 take 30 mL by mouth every six hours as needed magnesium hydroxide (Milk Of Magnesia Concentrated) 2,400 mg/10 mL suspension suspension Take 30 mL by mouth every 6 hours if needed for constipation. 03/02/2025 Discontinued (Therapy completed) take 30 mL by mouth every six ho urs as needed meclizine hydrochloride 25 mg oral tablet (2 sources) Antiemetic Start: 02-20-2019 take 0.5 tablet by mouth three times daily as needed meclizine 25 MG Tab tablet Indications: Vertigo Take 0.5 tablets by mouth 3 times daily as needed. 15 tablet 0 02/20/2019 Active Start: 02-20-2019 End: 02-20-2019 meclizine (ANTIVERT) tablet 25 mg metFORMIN hydrochloride 500 mg oral tablet (1 source) Biguanide Start: 02-20-2019 take 1 tablet by mouth twice daily metformin 500 MG Tab tablet Take 1 tablet by mouth 2 times daily. 60 tablet 0 02/20/2019 Active Start: 02-20-2019 take 1 tablet by marline th twice daily metformin 500 MG Tab tablet Take 1 tablet by mouth 2 times daily. 60 tablet 0 02/20/2019 Active 24 hr metoprolol succinate 50 mg extended release oral tablet (19 sources) beta-Adrenergic Breana Start: 10-05-2024 End: 12-21-2025 take 1 tablet by mouth once daily metoprolol succinate XL (Toprol-XL) 50 mg 24 hr tablet Indications: S/P CABG (coronary artery bypass graft) Take 1 tablet (50 mg) by mouth once daily. Do not crush or chew. 90 tablet 3 12/21/2024 03/02/2025 Discontinued (Med List Cleanup) Start: 10-02-2024 Start: 09-29-2024 End: 10-01-2024 Start: 07-12-2024 End: 10-04-2024 take 1 tablet by mouth once daily metoprolol succinate XL (Toprol-XL) 25 mg 24 hr tablet Indications: CVA (cerebrovascular accident due to intracerebral hemorrhage) (Multi) Take 1 tablet (25 mg) by mouth once daily. Do not crush or chew. 30 tablet 07/14/2024 08/13/2024 Active moisturizing mouth (Biotene Dry Mouth Oral Rinse) solution (5 sources) End: 03-02-2025 take 15 mL by mouth three times daily as needed moisturizing mouth (Biotene Dry Mouth Oral Rinse) solution Swish and spit 15 mL 3 times a day as needed. 03/02/2025 Discontinued (Therapy completed) take 15 mL by mouth three times daily as needed moisturizing mouth (Biotene Dry Mouth Or al Rinse) solution Swish and spit 15 mL 3 times a day as needed. Active multivitamin with minerals tablet (5 sources) Start: 10-05-2024 End: 03-02-2025 take 1 tablet by mouth once daily multivitamin with minerals tablet Indications: S/P CABG (coronary artery bypass graft) Take 1 tablet by mouth once daily. 10/05/2024 03/02/2025 Discontinued (Therapy completed) Start: 10-05-2024 End: 10-05-2025 take 1 tablet by mouth once daily multivitamin with minerals tablet Indications: S/P CABG (coronary artery bypass graft) Take 1 tablet by mouth once daily. 10/05/2024 10/05/2025 Active 24 hr nitroglycerin 0.1 mg/hr transdermal system (10 sources) Nitrate Vasodilator End: 10-04-2024 nystatin 100 unt/mg topical powder (15 sources) Polyene Antifungal End: 03-02-2025 nystatin (Mycostatin) 100,000 unit/gram powder Apply 1 Application topically 2 times a day as needed for rash. 03/02/2025 Discontinued (Therapy completed) ondansetron 4 mg disintegrating oral tablet (7 sources) Serotonin-3 Receptor Antagonist Start: 02-20-2019 take 1 tablet by mouth every four hours as needed for nausea ondansetron 4 MG Tab Dispersible tablet Indications: Vertigo Take 1 tablet by mouth every 4 hours as needed for Nausea. Place on tongue 10 tablet 0 02/20/2019 Active Start: 02-20-2019 End: 02-20-2019 ondansetron 4mg/2ml (ZOFRAN) injection 4 mg End: 03-02-2025 take 1 tablet by mouth every eight hours as needed ondansetron (Zofran) 4 mg tablet Take 1 tablet (4 mg) by mouth every 8 hours if needed for nausea or vomiting. 03/02/2025 Discontinued (Therapy completed) oxygen (O2) therapy (2 sources) Start: 09-28-2024 Start: 07-09-2024 inhalation, Co ntinuous PRN - O2/gases, other, titrate to maintain SpO2 at 94% or above, Starting on Wed07/09/24 at 0952, Device: Nasal Cannula, Rate in liters per minute: Other, Custom Value: Please indicate a value for LPM, Keep O2 Sat Above: 94% oxymetazoline hydrochloride 0.5 mg/ml nasal spray (8 sources) Start: 07-13-2024 End: 10-04-2024 Start: 07-12-2024 End: 07-15-2024 take 2 spray(s) nasal route every twelve hours as needed for congestion 2 spray, Each Nostril, Every 12 hours PRN, congestion, Starting on Wed07/12/24 at 0746, For 3 days perflutren protein A microsp here (Optison) injection 0.5 mL (1 source) Start: 07-08-2024 polyethylene glycol 3350 170 00 mg powder for oral solution (3 sources) Osmotic Laxative Start: 09-27-2024 Start: 07-08-2024 End: 08-13-2024 polyethylene glycol (Glycola x, Miralax) 17 gram packet Indications: Constipation, unspecified constipation type Take 17 g by mouth once daily. 30 packet 07/14/2024 08/13/2024 Active polysaccharide iron complex 150 mg oral capsule (3 sources) Start: 10-05-2024 End: 10-26-2024 take 1 capsule by mouth once daily iron polysaccharides (Nu-Iron,Niferex) 150 mg iron capsule Indications: S/P CABG (coronary artery bypass graft) Take 1 capsule (150 mg) by mouth once daily for 21 days. 10/05/2024 10/26/2024 Active Start: 10-01-2024 sertraline 50 mg oral tablet (18 sources) Serotonin Reuptake Inhibitor Start: 09-27-2024 End: 10-29-2025 take 1 tablet by mouth once daily sertraline (Zoloft) 50 mg tablet Indications: Depression, unspecified depression type Take 1 tablet (50 mg) by mouth once daily. 90 tablet 1 05/02/2025 10/29/2025 Active sulfur hexafluoride microsphr (Lumason) injection 24.28 mg (1 source) Start: 07-08-2024 (2 sources) Start: 10-05-2024 End: 10-05-2025 Start: 10-01-2024 (1 source) Start: 09-27-2024 take 4 mg by mouth every eight hours as needed [Order 1 Start] Name: ondansetron (Zofran) tablet 4 mg Signed Summary: 4 mg, oral, Every 8 hours PRN, nausea/vomiting, first line, Starting on Wed09/27/24 at 1430, 1st Line. Use oral route first, if possible. If inadequate response within 60 minutes, proceed to next-line agent for same PRN reason or contact provider if no further options ordered. [Order 1 End] [Order 2 Start] Name: ondansetron (Zofran) injection 4 mg Signed Summary: 4 mg, intravenous, Every 8 hours PRN, nausea/vomiting, first line, Starting on Wed09/27/24 at 1430, 1st Line. Give IV if patient is unable to take orally. If inadequate response within 60 minutes, proceed to next-line agent for same PRN reason or contact provider if no further options ordered. When administering via IV Push, administer over 3-5 minutes. [Order 2 End] Completed/Discontinued Medications Medication Drug Class(es) Dates Sig (Normalized) Sig (Original) 500 ml albumin human, detention 50 mg/ml injection (1 source) Human Serum Albumin Start: 09-27-2024 End: 09-27-2024 calcium chloride 0.0014 meq/ml / potassium chloride 0.004 meq/ml / sodium chloride 0.103 meq/ml / sodium lactate 0.028 meq/ml injectable solution (2 sources) Start: 09-27-2024 End: 09-28-2024 ceFAZolin 2000 mg injection (1 source) Cephalosporin Antibacterial Start: 09-27-2024 End: 09-29-2024 take 2 g intravenously every eight hours docusate sodium 50 mg / sennosides, detention 8.6 mg oral tablet (16 sources) Start: 09-27-2024 End: 10-04-2024 End: 03-02-2025 take 2 tablets by mouth every twelve hours for constipation sennosides-docusate sodium (Senna Plus) 8.6-50 mg tablet Take 2 tablets by mouth every 12 hours if needed for constipation. 03/02/2025 Discontinued (Therapy completed) gadoterate meglumine (Dotarem) 0.5 mmol/mL contrast injection 17 mL (1 source) Start: 07-10-2024 End: 07-10-2024 inject 17 mL intravenously once 17 mL, intravenous, Once in imaging, Starting on 07/10/24 at 0729, For 1 dose, Administer undiluted as rapid I.V. bolus injection heparin bolus from bag 4,000 Units (1 source) Start: 07-08-2024 End: 07-08-2024 4,000 Units, intravenous, Once, On 07/08/24 at 0400, For 1 dose, Initial bolus. 1 ml HYDROmorphone hydrochloride 0.2 mg/ml prefilled syringe (1 source) Opioid Agonist Start: 09-27-2024 End: 09-28-2024 insulin lispro 100 unt/ml injectable solution (1 source) Insulin Analog Start: 09-27-2024 End: 09-28-2024 iohexol (OMNIPaque) 350 mg iodine/mL solution 69 mL (1 source) Start: 07-08-2024 End: 07-08-2024 69 mL, intravenous, Once in imaging, Starting on 07/08/24 at 0030, For 1 dose 10 ml methocarbamol 100 mg/ml injection (1 source) Muscle Relaxant Start: 09-27-2024 End: 09-27-2024 oxyCODONE hydrochloride 10 mg oral tablet (2 sources) Opioid Agonist Start: 09-27-2024 End: 10-04-2024 take 1 tablet by mouth every four hours as needed Start: 09-27-2024 End: 10-01-2024 take 1 tablet by mouth every four hours as needed perflutren lipid microspheres (Definity) injection 0.5-10 mL of dilution (1 source) Start: 07-08-2024 End: 07-10-2024 0.5-10 mL of dilution, intravenous, Once in imaging, Starting on 07/08/24 at 0339, For 1 dose, CV Medications, Contrast - for use by imaging provider only. Prior to administration, Definity product must be activated. First, bring vial to room temperature. Then, shake vial for 45 seconds. Do not use if the 45 second activation cycle has not been completed. Following activation, the product will appear as a milky white suspension and may be used immediately. If not used within 5 minutes of activation, re-suspend by inverting and shaking the vial for 10 seconds. Discard unused product. Administration: Dilute 1.3 mL of activated DEFINITY with 8.7 mL of normal saline in a 10 mL syringe. Inject 0.5 mL of diluted DEFINITY when notified the images/film are unclear to enhance view of Left Ventricular borders. Repeat 0.5 mL of DEFINITY until clear images are obtained, not to exceed 10 mLs. Once images are obtained or limit of medication is reached, flush line with 10 mL of Normal Saline. microencapsulated potassium chloride 20 meq extended release oral tablet (1 source) Start: 10-02-2024 End: 10-02-2024 10 ml propofol 10 mg/ml injection (1 source) General Anesthetic Start: 09-27-2024 End: 09-28-2024 (2 sources) Start: 09-27-2024 End: 09-28-2024 Start: 09-27-2024 End: 09-27-2024 Problems Active Problems Problem Classification Problem Date Documented Date Episodic/Chronic Acute cerebrovascular disease (20 sources) Cerebral infarction, unspecified; Translations: [Cerebrovascular accident] Onset: 07-07-2024 08-04-2024 Chronic Alcohol-related disorders (10 sources) Alcoholic liver damage; Translations: [Alcoholic liver disease, unspecified] Onset: 09-27-2024 09-27-2024 Chronic Cardiac and circulatory congenital anomalies (11 sources) Patent foramen ovale; Translations: [Congenital heart disease] Onset: 08-04-2024 09-27-2024 Chronic Conditions associated with dizziness or vertigo (2 sources) Dizziness and giddiness; Translations: [Vertigo] Onset: 02-20-2019 Episodic Coronary atherosclerosis and other heart disease (20 sources) Atherosclerotic heart disease of [place] coronary artery without angina pectoris; Translations: [Coronary arteriosclerosis] Onset: 08-04-2024 08-30-2024 Chronic Diabetes mellitus without complication (2 sources) Type 2 diabetes mellitus without complications; Translations: [Type 2 diabetes mellitus] Onset: 02-20-2019 Chronic Disorders of lipid metabolism (20 sources) Pure hypercholesterolemia, unspecified; Translations: [Pure hypercholesterolemia] Onset: 08-04-2024 08-04-2024 Chronic Essential hypertension (20 sources) Essential (primary) hypertension; Translations: [Essential hypertension] Onset: 08-04-2024 08-04-2024 Chronic Fluid and electrolyte disorders (1 source) Hypo-osmolality and hyponatremia; Translations: [Hypo-osmolality and hyponatremia] Onset: 08-04-2024 Episodic Late effects of cerebrovascular disease (20 sources) History of cerebrovascular accident with residual deficit; Translations: [Unspecified sequelae of cerebral infarction] Onset: 07-07-2024 09-05-2024 Chronic Malaise and fatigue (1 source) Other malaise; Translations: [Other malaise] Onset: 08-04-2024 Episodic Mood disorders (18 sources) Depressive disorder; Translations: [Depression] Onset: 08-04-2024 08-04-2024 Chronic Mood disorders (3 sources) Mood disorders; Translations: [Depression, unspecified] Onset: 08-04-2024 Nonspecific chest pain (3 sources) Chest pain; Translations: [Chest pain, unspecified] Onset: 08-30-2024 08-30-2024 Episodic Other circulatory disease (2 sources) History of cerebrovascular accident with residual deficit 09-11-2024 Episodic Other circulatory disease (3 sources) Other specified symptoms and signs involving the circulatory and respiratory systems; Translations: [Other symptoms involving cardiovascular system] Onset: 09-20-2024 09-20-2024 Episodic Other connective tissue disease (1 source) Facial weakness; Translations: [Facial weakness] Onset: 08-04-2024 Episodic Other lower respiratory disease (1 source) Other forms of dyspnea; Translations: [Other forms of dyspnea] Onset: 08-04-2024 Episodic Other nervous system disorders (1 source) Dysarthria and anarthria; Translations: [Dysarthria and anarthria] Onset: 08-04-2024 Episodic Other nervous system disorders (1 source) Other symptoms and signs involving cognitive functions and awareness; Translations: [Other symptoms and signs involving cognitive functions and awareness] Onset: 08-04-2024 Episodic Other nervous system disorders (2 sources) Unspecified abnormalities of gait and mobility; Translations: [Unspecified abnormalities of gait and mobility] Onset: 03-08-2025 Episodic Other nervous system disorders (1 source) Abnormal gait; Translations: [Unspecified abnormalities of gait and mobility] Onset: 03-08-2025 03-08-2025 Episodic Other nutritional; endocrine; and metabolic disorders (1 source) Other symptoms and signs concerning food and fluid intake; Translations: [Other symptoms and signs concerning food and fluid intake] Onset: 08-04-2024 Episodic Paralysis (18 sources) Hemiplegia, unspecified affecting right dominant side; Translations: [Hemiplegia] Onset: 08-04-2024 08-04-2024 Chronic Substance-related disorders (18 sources) Nicotine dependence, unspecified, in remission; Translations: [Personal history of tobacco use] Onset: 08-04-2024 08-04-2024 Chronic Unclassified (1 source) Cough, unspecified; Translations: [Cough, unspecified] Onset: 12-13-2024 Past or Other Problems Problem Classification Problem Date Documented Da te Episodic/Chronic Acute myocardial infarction (19 sources) Subsequent non-ST elevation (NSTEMI) myocardial infarction; Translations: [Myocardial infarction] Onset: 07-07-2024 Resolved: 10-04-2024 09-27-2024 Chronic Coronary atherosclerosis and other heart disease (4 sources) Presence of aortocoronary bypass graft; Translations: [Presence of aortocoronary bypass graft] Onset: 09-27-2024 Episodic Deficiency and other anemia (4 sources) Anemia; Translations: [Anemia, unspecified] Onset: 12-21-2024 12-21-2024 Episodic Deficiency and other anemia (2 sources) Anemia, unspecified; Translations: [Anemia, unspecified] Onset: 12-21-2024 Episodic Heart valve disorders (10 sources) Heart murmur; Translations: [Cardiac murmur, unspecified] Onset: 09-27-2024 Resolved: 10-04-2024 09-27-2024 Episodic Other gastrointestinal disorders (1 source) Constipation; Translations: [Constipation, unspecified] 07-13-2024 Episodic Other gastrointestinal disorders (2 sources) Constipation, unspecified; Translations: [Constipation, unspecified] Onset: 07-07-2024 Episodic Other nervous system disorders (17 sources) Dysarthria; Translations: [Dysarthria and anarthria] Onset: 08-04-2024 08-04-2024 Episodic Other screening for suspected conditions (not mental disorders or infectious disease) (20 sources) Other specified abnormal findings of blood chemistry; Translations: [Raised cardiac enzyme or marker] Onset: 07-07-2024 Resolved: 10-04-2024 07-13-2024 Episodic Other upper respiratory infections (5 sources) Upper respiratory infection; Translations: [Acute upper respiratory infection, unspecified] Onset: 07-07-2024 07-13-2024 Episodic Transient cerebral ischemia (20 sources) Transient cerebral ischemia; Translations: [Transient cerebral ischemic attack, unspecified] Onset: 07-07-2024 Resolved: 07-13-2024 07-13-2024 Chronic Unclassified (16 sources) Onset: 08-30-2024 Resolved: 03-08-2025 08-30-2024 Unclassified (1 source) Cough, unspecified; Translations: [Cough, unspecified] Onset: 12-13-2024 Results Test Name Value Interpretation Reference Range Facility BASIC METABOLIC PANEL WITH A NION GAPon 12-22-2024 BUN/CREATININE RATIO SEE NOTE: Normal 05-13 [facility] Comment on above: Result Comment: Not Reported: BUN and Creatinine are within reference range. Performed By: #### 1 759, 7573, 457, 21489 #### [facility] [place] [address] [employer]: Adryan Albrecht MD Calcium [Mass/Vol] 9.2 mg/dL Normal 8.6-10.3 [facility] Comment on above: Performed By: #### 1 759, 7573, 457, 27110 #### [facility] [place] [address] [employer]: Adryan Albrecht MD Chloride [Moles/Vol] 106 mmol/L Normal 98-110 [facility] Comment on above: Performed By: #### 1 759, 7573, 457, 88980 #### [facility] [place] [address] [employer]: Adryan Albrecht MD CO2 [Moles/Vol] 23 mmol/L Normal 20-32 [facility] Comment on above: Performed By: #### 1 75Hermila, 7573, 457, 98553 #### [facility] [place] [address] [employer]: Adryan Albrecht MD Creatinine [Mass/Vol] 0.95 mg/dL Normal 0.70-1.[address] [facility] Comment on above: Performed By: #### 1 759, 7573, 457, 24625 #### [facility] [place] [address] [employer]: Adryan Albrecht MD ELECTROLYTE BALANCE 11 mmol/L (calc) Normal 7-17 [facility] Comment on above: Performed By: #### 1 759, 7573, 457, 08885 #### [facility] [place] [address] [employer]: Adryan Albrecht MD GFR/1.73 sq M.predicted among non-blacks MDRD (S/P/Bld) [Vol rate/Area] 86 mL/min/{1.73_m2} Normal > OR = 60 [facility] Comment on above: Performed By: #### 1 759, 7573, 457, 49069 #### [facility] [place] [address] [employer]: Adryan Albrecht MD Glucose [Mass/Vol] 85 mg/dL Normal 65-99 [facility] Comment on above: Result Comment: Fasting reference interval Performed By: #### 1 759, 7573, 457, 91238 #### [facility] [place] [address] [employer]: Adryan Albrecht MD Potassium [Moles/Vol] 4.4 mmol/L Normal 3.5-5.[address] [facility] Comment on above: Performed By: #### 1 759, 7573, 457, 87208 #### [facility] [place] [address] [employer]: Adryan Albrecht MD Sodium [Moles/Vol] 140 mmol/L Normal 135-146 [facility] Comment on above: Performed By: #### 1 759, 7573, 457, 40630 #### [facility] [place] [address] [employer]: Adryan Albrecht MD Urea nitrogen [Mass/Vol] 12 mg/dL Normal 7-25 [facility] Comment on above: Performed By: #### 1 759, 7573, 457, 88638 #### [facility] [place] [address] [employer]: Adryan Albrecht MD CBC (H/H, RBC, INDICES, WBC, PLT)on 12-22-2024 Erythrocyte distribution width (RBC) [Ratio] 13.5 % Normal 11.0-15.0 [facility] Comment on above: Performed By: #### 1 759, 7573, 457, 94127 #### [facility] [place] [address] [employer]: Adryan Albrecht MD Hematocrit (Bld) [Volume fraction] 45.1 % Normal 38.5-50.0 [facility] Comment on above: Performed By: #### 1 759, 7573, 457, 02857 #### [facility] [place] [address] [employer]: Adryan Albrecht MD Hemoglobin (Bld) [Mass/Vol] 14.6 g/dL Normal 13.2-17.1 [facility] Comment on above: Performed By: #### 1 759, 7573, 457, 58637 #### [facility] [place] [address] [employer]: Adryan Albrecht MD MCH (RBC) [Entitic mass] 29.7 pg Normal 27.0-33.0 [facility] Comment on above: Performed By: #### 1 759, 7573, 457, 46760 #### [facility] [place] [address] [employer]: Adryan Albrecht MD MCHC (RBC) [Mass/Vol] 32.4 g/dL Normal 32.0-36.0 [facility] Comment on above: Result Comment: For adults, a slight decrease in the calculated MCHC value (in the range of 30 to 32 g/dL) is most likely not clinically significant; however, it should be interpreted with caution in correlation with other red cell parameters and the patient's clinical condition. Performed By: #### 1 759, 7573, 457, 27255 #### [facility] [place] [address] [employer]: Adryan Albrecht MD MCV (RBC) [Entitic vol] 91.7 fL Normal 80.0-100.0 [facility] Comment on above: Performed By: #### 1 759, 7573, 457, 72941 #### [facility] [place] [address] [employer]venile [employer] Officer: Adryan Albrecht MD Platelet mean volume (Bld) [Entitic vol] 10.1 fL Normal 7.5-12.5 [facility] Comment on above: Performed By: #### 1 759, 7573, 457, 11631 #### [facility] [place] [address] [employer]: Adryan Albrecht MD Platelets (Bld) [#/Vol] 394 10*3/uL Normal 140-400 [facility] Comment on above: Performed By: #### 1 759, 7573, 457, 27709 #### [facility] [place] [address] [employer]venile [employer] Officer: Adryan Albrecht MD RBC (Bld) [#/Vol] 4.92 10*6/uL Normal 4.20-5.80 [facility] Comment on above: Performed By: #### 1 759, 7573, 457, 99759 #### [facility] [place] [address] [employer]venile [employer] Officer: Adryan Albrecht MD WBC (Bld) [#/Vol] 8.6 10*3/uL Normal 3.8-10.8 [facility] Comment on above: Performed By: #### 1 759, 7573, 457, 07514 #### [facility] [place] [address] [employer]: Adryan Albrecht MD FERRITINon 12-22-2024 Ferritin [Mass/Vol] 227 ng/mL Normal 24-380 [facility] Comment on above: Performed By: #### 1 759, 7573, 457, 74658 #### [facility] [place] [address] [employer]: Adryan Albrecht MD IRON AND TOTAL IRON BINDING CAPACITYon 12-22-2024 % SATURATION 22 % (calc) Normal 20-48 [facility] Comment on above: Performed By: #### 1 759, 7573, 457, 58015 #### [facility] [place] [address] [employer]: Adryan Albrecht MD IRON BINDING CAPACITY 298 mcg/dL (calc) Normal 250-425 [facility] Comment on above: Performed By: #### 1 759, 7573, 457, 13617 #### [facility] [place] [address] [employer] Officer: Adryan Albrecht MD IRON, TOTAL 67 mcg/dL Normal 50-180 [facility] Comment on above: Performed By: #### 1 759, 7573, 457, 73764 #### [facility] [place] [address] [employer]: Adryan Albrecht MD COVID-19, MOLECULARon 2024 SARS-CoV-2 (COVID-19) Ab IA Ql Not detected Normal Not Detected [facility] Comment on above: Result Comment: Test ing was performed using the [employer] ID NOW COVID-19 assay on the ID NOW platform. This test has not been approved for use in asymptomatic patients and its performance in this patient population has not been evaluated. Negative results do not rule out the presence of SARS-CoV-2/COVID-19. ED Prov Noteon 12-13-2024 ED Prov Note ED PROVIDER NOTE [facility] EMERGENCY DEPARTMENT NAME: Cisco Saini AGE: 69 y.o. : 1955 VISIT DATE: 12/13/2024 CSN: [id number] PCP: No, Physician Chief Complaint Patient presents with Cough 69-year-old male presents with cough, sinus congestion, and some mild chest congestion this been going on for about 6 days. No nausea vomiting diarrhea or constipation. Denies any fevers or chills. Cough Past Medical History: Diagnosis Date Coronary artery disease Hyperlipidemia Hypertension Myocardial infarction (HCC) Stroke (HCC) Past Surgical History: Procedure Laterality Date CABG History reviewed. No pertinent family history. Social History Socioeconomic History Marital status: Tobacco Use Smoking status: Never Smokeless tobacco: Never No current outpatient medications on file prior to encounter. No Known Allergies Review of Systems Respiratory: Positive for cough. Patient Vitals for the past 24 hrs: BP Temp Temp src Pulse Resp SpO2 Height Weight 12/13/24 1207 -- -- -- (!) 104 -- 93 % -- -- 12/13/24 1203 (!) 144/94 98.2 degrees F (36.8 degrees C) Oral -- 18 -- 5' 5 75.8 kg (167 lb) Physical Exam Vitals and nursing note reviewed. Constitutional: Appearance: Normal appearance. HENT: Head: Normocephalic and atraumatic. Nose: Nose normal. Eyes: Extraocular Movements: Extraocular movements intact. Pupils: Pupils are equal, round, and reactive to light. Cardiovascular: Rate and Rhythm: Normal rate and regular rhythm. Musculoskeletal: General: Normal range of motion. Cervical back: Normal range of motion. Pulmonary: Effort: Pulmonary effort is normal. Breath sounds: Normal breath sounds. Skin: General: Skin is warm and dry. Neurological: General: No focal deficit present. Mental Status: He is alert and oriented to person, place, and time. Laboratory & Radiographic Imaging (if done): Results for orders placed or performed during the hospital encounter of 12/13/24 COVID-19, Molecular Specimen: Swab Result Value Ref Range SARS-CoV-2 Not Detected Not Detected POC Influenza A/B Result Value Ref Range POC Rapid Influenza A Ag Not Detected Not Detected POC Influenza B Ag Not Detected Not Detected No orders to display Procedures Medical Decision Making Rapid influenza and COVID were both negative. Considering that he has been sick for nearly a week, and his comorbidities, I will put him on a Z-Refugio, Tessalon Perles, and albuterol inhaler. Recommend following up with PCP. Return if worse in any way. . Clinical Impression: No diagnosis found. ED Disposition None Follow-up Information Follow-up information has not been specified. Contact information for after-discharge care Follow-up information has not been specified. New Prescriptions azithromycin (ZITHROMAX) 250 MG tablet Take 2 pills on day 1, then take 1 pill daily for the next 4 days. . albuterol 90 mcg/actuation inhaler Inhale 2 (two) puffs every 4 to 6 hours as needed for wheezing . benzonatate (TESSALON) 100 MG capsule Take 2 (two) capsules (200 mg total) by mouth 3 (three) times a day as needed . Jesus Christie DO 12/13/24 1259 AUTHENTICATED BY ANDREEA RAMOS 12/13/2024 12:59:33 [facility] POC INFLUENZA A/B - RALSon 0 12-13-2024 POC INFLUENZA A (FSED) Not detected Normal Not Detecte d [facility] POC INFLUENZA B (FSED) Not detected Normal Not Detecte d [facility] XR CHEST 2 VIEWSon XR CHEST 2 VIEWS Interpreted By: Fiorella Cam, STUDY: Chest, 2 views. INDICATION: Signs/Symptoms:P/OP. COMPARISON: CT chest 09/15/2024. Chest radiograph 10/03/2024. ACCESSION NUMBER(S): [id number] ORDERING CLINICIAN: ELISABETH ATKINS FINDINGS: Status post median sternotomy. The cardiomediastinal silhouette size is within normal limits. There is no focal consolidation, edema or pneumothorax. No sizeable pleural effusion. IMPRESSION: 1. No acute cardiopulmonary process. MACRO: None. Signed by: Fiorella Cam 11/08/2024 6:29 PM Dictation workstation: [id number] [facility] CBC panel Auto (Bld)on 10-10 Erythrocyte distribution width (RBC) [Ratio] 14.3 % Normal 11.5-14.5 [facility] Comment on above: Performed By: #### 8 9577-1 #### BETH FOSTER ([id number]) [facility] ([facility]) [address] [place] [address] Hematocrit (Bld) [Volume fraction] 32.4 % Low 41.0-52.0 [facility] Comment on above: Performed By: #### 8 9577-1 #### BETH FOSTER ([id number]) [facility] ([facility]) [address] [place] [address] 30495 Hemoglobin (Bld) [Mass/Vol] 10.3 g/dL Low 13.5-17.5 [facility] Comment on above: Performed By: #### 8 9577-1 #### BETH FOSTER ([id number]) [facility] ([facility]) [address] [place] [address] 55422 MCH (RBC) [Entitic mass] 30.2 pg Normal 26.0-34.0 [facility] Comment on above: Performed By: #### 8 9577-1 #### BETH FOSTER ([id number]) [facility] ([facility]) [address] [place] [address] 00057 MCHC (RBC) [Mass/Vol] 31.8 g/dL Low 32.0-36.0 [facility] Comment on above: Performed By: #### 8 9577-1 #### BETH FOSTER ([id number]) [facility] ([facility]) [address] [place] [address] 72179 MCV (RBC) [Entitic vol] 95 fL Normal 80-100 [facility] Comment on above: Performed By: #### 8 9577-1 #### BETH FOSTER ([id number]) [facility] ([facility]) [address] [place] [address] 45053 Nucleated RBC/100 WBC (Bld) [Ratio] 0.0 /100 WBCs Normal 0.0-0.0 [facility] Comment on above: Performed By: #### 8 9577-1 #### BETH FOSTER ([id number]) [facility] ([facility]) [address] [place] [address] Platelets (Bld) [#/Vol] 469 x10*3/uL High 150-450 [facility] Comment on above: Performed By: #### 8 9577-1 #### BETH FOSTER ([id number]) [facility] ([facility]) [address] [place] [address] RBC (Bld) [#/Vol] 3.41 x10*6/uL Low 4.50-5.90 [facility] Comment on above: Performed By: #### 8 9577-1 #### BETH FOSTER ([id number]) [facility] ([facility]) [address] [place] [address] WBC (Bld) [#/Vol] 10.2 x10*3/uL Normal 4.4-11.3 [facility] Comment on above: Performed By: #### 8 9577-1 #### BETH FOSTER ([id number]) [facility] ([facility]) [address] [place] [address] ECG 12 lead (Clinic Performe d)on 10-09-2024 [facility] Work Phone: EKG showed sinus rhy thm with non-specific ST-T changes. [facility] Work Phone: CBC panel Auto (Bld)on 10-06 Erythrocyte distribution width (RBC) [Ratio] 14.2 % Normal 11.5-14.5 [facility] Comment on above: Performed By: #### 8 9577-1 #### BETH FOSTER ([id number]) [facility] ([facility]) [address] [place] [address] Hematocrit (Bld) [Volume fraction] 33.4 % Low 41.0-52.0 [facility] Comment on above: Performed By: #### 8 9577-1 #### BETH FOSTER ([id number]) [facility] ([facility]) [address] [place] [address] 81254 Hemoglobin (Bld) [Mass/Vol] 10.7 g/dL Low 13.5-17.5 [facility] Comment on above: Performed By: #### 8 9577-1 #### BETH FOSTER ([id number]) [facility] ([facility]) [address] [place] [address] 65696 MCH (RBC) [Entitic mass] 30.3 pg Normal 26.0-34.0 [facility] Comment on above: Performed By: #### 8 9577-1 #### BETH FOSTER ([id number]) [facility] ([facility]) [address] [place] [address] 65255 MCHC (RBC) [Mass/Vol] 32.0 g/dL Normal 32.0-36.0 [facility] Comment on above: Performed By: #### 8 9577-1 #### BETH FOSTER ([id number]) [facility] ([facility]) [address] [place] [address] 19811 MCV (RBC) [Entitic vol] 95 fL Normal 80-100 [facility] Comment on above: Performed By: #### 8 9577-1 #### BETH FOSTER ([id number]) [facility] ([facility]) [address] [place] [address] 49206 Nucleated RBC/100 WBC (Bld) [Ratio] 0.0 /100 WBCs Normal 0.0-0.0 [facility] Comment on above: Performed By: #### 8 9577-1 #### BETH FOSTER ([id number]) [facility] ([facility]) [address] [place] [address] 59333 Platelets (Bld) [#/Vol] 377 x10*3/uL Normal 150-450 [facility] Comment on above: Performed By: #### 8 9577-1 #### BETH FOSTER ([id number]) [facility] ([facility]) [address] [place] [address] 75372 RBC (Bld) [#/Vol] 3.53 x10*6/uL Low 4.50-5.90 [facility] Comment on above: Performed By: #### 8 9577-1 #### BETH FOSTER ([id number]) [facility] ([facility]) [address] [place] [address] 63552 WBC (Bld) [#/Vol] 12.0 x10*3/uL High 4.4-11.3 [facility] Comment on above: Performed By: #### 8 9577-1 #### BETH FOSTER ([id number]) [facility] ([facility]) [address] [place] [address] 41189 Magnesiumon 10-06-2024 Magnesium [Mass/Vol] 2.10 mg/dL Normal 1.60-2.40 [facility] Comment on above: Performed By: #### 8 9577-1 #### BETH FOSTER ([id number]) [facility] ([facility]) [address] [place], [place] [id number] Renal function 2000 panelon 10-06-2024 Albumin BCP dye [Mass/Vol] 3.3 g/dL Low 3.4-5.0 [facility] Comment on above: Performed By: #### 8 9577-1 #### BETH FOSTER ([id number]) [facility] ([facility]) [address] [place] [address] 68891 Anion gap [Moles/Vol] 14 mmol/L Normal 10-20 [facility] Comment on above: Performed By: #### 8 9577-1 #### BETH FOSTER ([id number]) [facility] ([facility]) [address] [place] [address] 51974 Calcium [Mass/Vol] 8.3 mg/dL Low 8.6-10.[address] [facility] Comment on above: Performed By: #### 8 9577-1 #### BETH FOSTER ([id number]) [facility] ([facility]) [address] [place] [address] 34637 Chloride [Moles/Vol] 100 mmol/L Normal 98-107 [facility] Comment on above: Performed By: #### 8 9577-1 #### BETH FOSTER ([id number]) [facility] ([facility]) [facility] [place] [address] CO2 [Moles/Vol] 23 mmol/L Normal 21-32 [facility] Comment on above: Performed By: #### 8 9577-1 #### BETH FOSTER ([id number]) [facility] ([facility]) [address] [place] [address] 18692 Creatinine [Mass/Vol] 0.85 mg/dL Normal 0.50-1.30 [facility] Comment on above: Performed By: #### 8 9577-1 #### BETH FOSTER ([id number]) [facility] ([facility]) [address] [place] [address] 18326 GFR/1.73 sq M.predicted MDRD (S/P/Bld) [Vol rate/Area] mL/min/{1.73_m2} Normal >60 [facility] Comment on above: Result Comment: Calc ulations of estimated GFR are performed using the 2020 CKD-EPI Study Refit equation without the race variable for the IDMS-Traceable creatinine methods. https://jasn.asnjournals.org/content/early//ASN.09269 77954 Performed By: #### 8 9577-1 #### BETH FOSTER ([id number]) [facility] ([facility]) [address] [place] [address] 95897 Glucose [Mass/Vol] 90 mg/dL Normal 74-[address] [facility] Comment on above: Performed By: #### 8 9577-1 #### BETH FOSTER ([id number]) [facility] ([facility]) [address] [place] [address] 45198 Phosphate [Mass/Vol] 3.8 mg/dL Normal 2.5-4.9 [facility] Comment on above: Result Comment: The performance characteristics of phosphorus testing in heparinized plasma have been validated by the individual laboratory site where testing is performed. Testing on heparinized plasma is not approved by the FDA; however, such approval is not necessary. Performed By: #### 8 9577-1 #### BETH FOSTER ([id number]) [facility] ([facility]) [facility] [place] [address] Potassium [Moles/Vol] 4.3 mmol/L Normal 3.5-5.3 [facility] Comment on above: Performed By: #### 8 9577-1 #### BETH FOSTER ([id number]) [facility] ([facility]) [address] [place] [address] Sodium [Moles/Vol] 133 mmol/L Low 136-[address] [facility] Comment on above: Performed By: #### 8 9577-1 #### BETH FOSTER ([id number]) [facility] ([facility]) [address] [place] [address] Urea nitrogen [Mass/Vol] 13 mg/dL Normal 6-23 [facility] Comment on above: Performed By: #### 8 9577-1 #### BETH FOSTER ([id number]) [facility] ([facility]) [address] [place] [address] CBC panel Auto (Bld)on 10-04 Erythrocyte distribution width (RBC) [Ratio] 13.9 % 11.5 - 14.5 % [facility] Hematocrit (Bld) [Volume fraction] 32 % Low 41.0 - 52.0 % [facility] Hemoglobin (Bld) [Mass/Vol] 10.5 g/dL Low 13.5 - 17.5 g/dL [facility] [facility] Interpretation and review of laboratory results Abnormal [facility] MCH (RBC) [Entitic mass] 30.5 pg 26.0 - 34.0 pg [facility] MCHC (RBC) [Mass/Vol] 32.8 g/dL 32.0 - 36.0 g/dL [facility] MCV (RBC) [Entitic vol] 93 fL 80 - 100 fL [facility] Nucleated RBC/100 WBC (Bld) [Ratio] 0 % [facility] Platelets (Bld) [#/Vol] 365 10*3/uL [facility] RBC (Bld) [#/Vol] 3.44 10*6/uL [facility] WBC (Bld) [#/Vol] 11.4 10*3/uL [facility] Erythrocyte distribution width (RBC) [Ratio] 13.9 % Normal 11.5-14.5 [facility] Comment on above: Performed By: #### 5 8410-2 ####PATRICIA Groves ([id number])[facility] ([facility])[address] [place] [address] Hematocrit (Bld) [Volume fraction] 32.0 % Low 41.0-52.0 [facility] Comment on above: Performed By: #### 5 8410-2 ####PATRICIA Groves ([id number])[facility] ([facility])[id number] [place] [address] Hemoglobin (Bld) [Mass/Vol] 10.5 g/dL Low 13.5-17.5 [facility] Comment on above: Performed By: #### 5 8410-2 ####PATRICIA Groves ([id number])[facility] ([facility])[address] [place] [address] MCH (RBC) [Entitic mass] 30.5 pg Normal 26.0-34.0 [facility] Comment on above: Performed By: #### 5 8410-2 ####PATRICIA Groves ([id number])[facility] ([facility])[address] [place] [address] MCHC (RBC) [Mass/Vol] 32.8 g/dL Normal 32.0-36.0 [facility] Comment on above: Performed By: #### 5 8410-2 ####PATRICIA Groves ([id number])[facility] ([facility])[address] [place] [address] MCV (RBC) [Entitic vol] 93 fL Normal 80-100 [facility] Comment on above: Performed By: #### 5 8410-2 ####PATRICIA Groves ([id number])[facility] ([facility])[address] [place] [address] Nucleated RBC/100 WBC (Bld) [Ratio] 0.0 /100 WBCs Normal 0.0-0.0 [facility] Comment on above: Performed By: #### 5 8410-2 ####PATRICIA Groves ([id number])[facility] ([facility])[address] [place] [address] Platelets (Bld) [#/Vol] 365 x10*3/uL Normal 150-450 [facility] Comment on above: Performed By: #### 5 8410-2 ####PATRICIA Groves ([id number])[facility] ([facility])[address] [place] [address] RBC (Bld) [#/Vol] 3.44 x10*6/uL Low 4.50-5.90 [facility] Comment on above: Performed By: #### 5 8410-2 ####PATRICIA Groves ([id number])[facility] ([facility])[address] [place] [address] WBC (Bld) [#/Vol] 11.4 x10*3/uL High 4.4-11.3 [facility] Comment on above: Performed By: #### 5 8410-2 ####PATRICIA Groves ([id number])[facility] ([facility])[address] [place] [address] Magnesiumon 10-04-2024 Magnesium [Mass/Vol] 2.03 mg/dL 1.60 - 2.40 mg/dL [facility] Magnesium [Mass/Vol] 2.03 mg/dL Normal 1.60-2.40 [facility] Comment on above: Performed By: #### 1 9123-9 ####PATRICIA Groves ([id number])[facility] ([facility])[address] [place] [address] Magnesium [Mass/Vol]on 10-04 Interpretation and review of laboratory results Normal [facility] No Panel Informationon 10-04 [facility] Renal function 2000 panelon 10-04-2024 Albumin BCP dye [Mass/Vol] 3.3 g/dL Low 3.4 - 5.0 g/dL [facility] Anion gap [Moles/Vol] 13 mmol/L 10 - 2 0 mmol/L [facility] Calcium [Mass/Vol] 8.7 mg/dL 8.6 - 10. 6 mg/dL [facility] Chloride [Moles/Vol] 103 mmol/L 98 - 10 7 mmol/L [facility] CO2 [Moles/Vol] 26 mmol/L 21 - 32 mmol/L [facility] Creatinine [Mass/Vol] 0.9 mg/dL 0.50 - 1.30 mg/dL [facility] eGFR - PINF [facility] Glucose [Mass/Vol] 102 mg/dL High 74 - 99 mg/dL [facility] Interpretation and review of laboratory results Abnormal [facility] Phosphate [Mass/Vol] 3.7 mg/dL 2.5 - 4 .9 mg/dL [facility] Potassium [Moles/Vol] 4 mmol/L 3.5 - 5.3 mmol/L [facility] Sodium [Moles/Vol] 138 mmol/L 136 - 145 mmol/L [facility] Urea nitrogen [Mass/Vol] 12 mg/dL 6 - 23 mg/dL [facility] Albumin BCP dye [Mass/Vol] 3.3 g/dL Low 3.4-5.0 [facility] Comment on above: Performed By: #### 2 4362-6 ####PATRICIA Groves ([id number])[facility] ([facility])[address] [place] [address] Anion gap [Moles/Vol] 13 mmol/L Normal 10-20 [facility] Comment on above: Performed By: #### 2 4362-6 ####PATRICIA Groves ([id number])[facility] ([facility])[address] [place] [address] Calcium [Mass/Vol] 8.7 mg/dL Normal 8.6-10.6 [facility] Comment on above: Performed By: #### 2 4362-6 ####PATRICIA Groves ([id number])[facility] ([facility])[address] [place] [address] Chloride [Moles/Vol] 103 mmol/L Normal 98-107 [facility] Comment on above: Performed By: #### 2 4362-6 ####PATRICIA RYAN L ([id number])[facility] ([facility])[address] [place] [address] CO2 [Moles/Vol] 26 mmol/L Normal 21-[address] [facility] Comment on above: Performed By: #### 2 4362-6 ####PATRICIA Groves ([id number])[facility] ([facility])[address] [place] [address] Creatinine [Mass/Vol] 0.90 mg/dL Normal 0.50-1.30 [facility] Comment on above: Performed By: #### 2 4362-6 ####PATRICIA Groves ([id number])[facility] ([facility])[address] [place] [address] GFR/1.73 sq M.predicted MDRD (S/P/Bld) [Vol rate/Area] mL/min/{1.73_m2} Normal >60 [facility] Comment on above: Result Comment: Calc ulations of estimated GFR are performed using the 2020 CKD-EPI Study Refit equation without the race variable for the IDMS-Traceable creatinine methods. https://jasn.asnjournals.org/content/early/ASN.32733 91194 Performed By: #### 2 4362-6 ####PATRICIA Groves ([id number])[facility] ([facility])[address] [place] [address] Glucose [Mass/Vol] 102 mg/dL High 74-99 [facility] Comment on above: Performed By: #### 2 4362-6 ####PATRICIA Groves ([id number])[facility] ([facility])[address] [place] [address] Phosphate [Mass/Vol] 3.7 mg/dL Normal 2.5-4.9 [facility] Comment on above: Result Comment: The performance characteristics of phosphorus testing in heparinized plasma have been validated by the individual laboratory site where testing is performed. Testing on heparinized plasma is not approved by the FDA; however, such approval is not necessary. Performed By: #### 2 4362-6 ####PATRICIA Groves ([id number])[facility] ([facility])[address] [place] [address] Potassium [Moles/Vol] 4.0 mmol/L Normal 3.5-5.3 [facility] Comment on above: Performed By: #### 2 4362-6 ####PATRICIA Groves ([id number])[facility] ([facility])[address] [place] [address] Sodium [Moles/Vol] 138 mmol/L Normal 136-145 [facility] Comment on above: Performed By: #### 2 4362-6 ####PATRICIA Groves ([id number])[facility] ([facility])[address] [place] [address] Urea nitrogen [Mass/Vol] 12 mg/dL Normal 6-23 [facility] Comment on above: Performed By: #### 2 4362-6 ####PATRICIA Groves ([id number])[facility] ([facility])[address] [place] [address] CBC panel Auto (Bld)on 10-03 Erythrocyte distribution width (RBC) [Ratio] 13.2 % 11.5 - 14.5 % [facility] Hematocrit (Bld) [Volume fraction] 30.4 % Low 41.0 - 52.0 % [facility] Hemoglobin (Bld) [Mass/Vol] 10 g/dL Low 13.5 - 17.5 g/dL [facility] Interpretation and review of laboratory results Abnormal [facility] MCH (RBC) [Entitic mass] 30.4 pg 26.0 - 34.0 pg [facility] MCHC (RBC) [Mass/Vol] 32.9 g/dL 32.0 - 36.0 g/dL [facility] MCV (RBC) [Entitic vol] 92 fL 80 - 100 fL [facility] Nucleated RBC/100 WBC (Bld) [Ratio] 0.2 % High [facility] Platelets (Bld) [#/Vol] 339 10*3/uL [facility] RBC (Bld) [#/Vol] 3.29 10*6/uL [facility] WBC (Bld) [#/Vol] 8.9 10*3/uL [facility] Erythrocyte distribution width (RBC) [Ratio] 13.2 % Normal 11.5-14.5 [facility] Comment on above: Performed By: #### 5 8410-2 ####PATRICIA Groves ([id number])[facility] ([facility])[address] [place] [address] Hematocrit (Bld) [Volume fraction] 30.4 % Low 41.0-52.0 [facility] Comment on above: Performed By: #### 5 8410-2 ####PATRICIA Groves ([id number])[facility] ([facility])[address] [place] [address] Hemoglobin (Bld) [Mass/Vol] 10.0 g/dL Low 13.5-17.5 [facility] Comment on above: Performed By: #### 5 8410-2 ####PATRICIA Groves ([id number])[facility] ([facility])[address] [place] [address] MCH (RBC) [Entitic mass] 30.4 pg Normal 26.0-34.0 [facility] Comment on above: Performed By: #### 5 8410-2 ####PATRICIA Groves ([id number])[facility] ([facility])[address] [place] [address] MCHC (RBC) [Mass/Vol] 32.9 g/dL Normal 32.0-36.0 [facility] Comment on above: Performed By: #### 5 8410-2 ####PATRICIA Groves ([id number])[facility] ([facility])[address] [place] [address] MCV (RBC) [Entitic vol] 92 fL Normal 80-100 [facility] Comment on above: Performed By: #### 5 8410-2 ####PATRICIA Groves ([id number])[facility] ([facility])[address] [place] [address] Nucleated RBC/100 WBC (Bld) [Ratio] 0.2 /100 WBCs High 0.0-0.0 [facility] Comment on above: Performed By: #### 5 8410-2 ####PATRICIA Groves ([id number])[facility] ([facility])[address] [place] [address] Platelets (Bld) [#/Vol] 339 x10*3/uL Normal 150-450 [facility] Comment on above: Performed By: #### 5 8410-2 ####PATRICIA Groves ([id number])[facility] ([facility])[address] [place] [address] RBC (Bld) [#/Vol] 3.29 x10*6/uL Low 4.50-5.90 [facility] Comment on above: Performed By: #### 5 8410-2 ####PATRICIA Groves ([id number])[facility] ([facility])[address] [place] [address] WBC (Bld) [#/Vol] 8.9 x10*3/uL Normal 4.4-11.3 [facility] Comment on above: Performed By: #### 5 8410-2 ####PATRICIA Groves ([id number])[facility] ([facility])[address] [place] [address] Magnesiumon 10-03-2024 Magnesium [Mass/Vol] 2.02 mg/dL 1.60 - 2.40 mg/dL [facility] Magnesium [Mass/Vol] 2.02 mg/dL Normal 1.60-2.40 [facility] Comment on above: Performed By: #### 1 9123-9 ####PATRICIA Groves ([id number])[facility] ([facility])[address] [place] [address] Magnesium [Mass/Vol]on 10-03 Interpretation and review of laboratory results Normal [facility] No Panel Informationon 10-03 [facility] Renal function 2000 panelon 10-03-2024 Albumin BCP dye [Mass/Vol] 3.3 g/dL Low 3.4 - 5.0 g/dL [facility] Anion gap [Moles/Vol] 14 mmol/L 10 - 2 0 mmol/L [facility] Calcium [Mass/Vol] 8.7 mg/dL 8.6 - 10. 6 mg/dL [facility] Chloride [Moles/Vol] 102 mmol/L 98 - 10 7 mmol/L [facility] CO2 [Moles/Vol] 26 mmol/L 21 - 32 mmol/L [facility] Creatinine [Mass/Vol] 0.88 mg/dL 0.50 - 1.30 mg/dL [facility] eGFR - PINF [facility] Glucose [Mass/Vol] 84 mg/dL 74 - 99 mg/dL [facility] Interpretation and review of laboratory results Abnormal [facility] Phosphate [Mass/Vol] 3.4 mg/dL 2.5 - 4 .9 mg/dL [facility] Potassium [Moles/Vol] 3.9 mmol/L 3.5 - 5.3 mmol/L [facility] Sodium [Moles/Vol] 138 mmol/L 136 - 145 mmol/L [facility] Urea nitrogen [Mass/Vol] 11 mg/dL 6 - 23 mg/dL [facility] Albumin BCP dye [Mass/Vol] 3.3 g/dL Low 3.4-5.0 [facility] Comment on above: Performed By: #### 2 4362-6 ####PATRICIA Groves ([id number])[facility] ([facility])[address] [place] [address] Anion gap [Moles/Vol] 14 mmol/L Normal 10-20 [facility] Comment on above: Performed By: #### 2 4362-6 ####PATRICIA Groves ([id number])[facility] ([facility])[address] [place] [address] Calcium [Mass/Vol] 8.7 mg/dL Normal 8.6-10.6 [facility] Comment on above: Performed By: #### 2 4362-6 ####PATRICIA RYAN L ([id number])[facility] ([facility])[address] [place] [address] Chloride [Moles/Vol] 102 mmol/L Normal 98-107 [facility] Comment on above: Performed By: #### 2 4362-6 ####PATRICIA Groves ([id number])[facility] ([facility])[address] [place] [address] CO2 [Moles/Vol] 26 mmol/L Normal 21-[address] [facility] Comment on above: Performed By: #### 2 4362-6 ####PATRICIA Groves ([id number])[facility] ([facility])[address] [place] [address] Creatinine [Mass/Vol] 0.88 mg/dL Normal 0.50-1.30 [facility] Comment on above: Performed By: #### 2 4362-6 ####PATRICIA RYAN L ([id number])[facility] ([facility])[address] [place] [address] GFR/1.73 sq M.predicted MDRD (S/P/Bld) [Vol rate/Area] mL/min/{1.73_m2} Normal >60 [facility] Comment on above: Result Comment: Calc ulations of estimated GFR are performed using the 2020 CKD-EPI Study Refit equation without the race variable for the IDMS-Traceable creatinine methods. https://jasn.asnjournals.org/content//ASN.67758 81798 Performed By: #### 2 4362-6 ####PATRICIA Groves ([id number])[facility] ([facility])[address] [place] [address] Glucose [Mass/Vol] 84 mg/dL Normal 74-99 [facility] Comment on above: Performed By: #### 2 4362-6 ####PATRICIA Groves ([id number])[facility] ([facility])[address] [place] [address] Phosphate [Mass/Vol] 3.4 mg/dL Normal 2.5-4.9 [facility] Comment on above: Result Comment: The performance characteristics of phosphorus testing in heparinized plasma have been validated by the individual laboratory site where testing is performed. Testing on heparinized plasma is not approved by the FDA; however, such approval is not necessary. Performed By: #### 2 4362-6 ####PATRICIA Groves ([id number])[facility] ([facility])[address] [place] [address] Potassium [Moles/Vol] 3.9 mmol/L Normal 3.5-5.3 [facility] Comment on above: Performed By: #### 2 4362-6 ####PATRICIA Groves ([id number])[facility] ([facility])[address] [place] [address] Sodium [Moles/Vol] 138 mmol/L Normal 136-145 [facility] Comment on above: Performed By: #### 2 4362-6 ####PATRICIA Groves ([id number])[facility] ([facility])[address] [place] [address] Urea nitrogen [Mass/Vol] 11 mg/dL Normal 6-23 [facility] Comment on above: Performed By: #### 2 4362-6 ####PATRICIA Groves ([id number])[facility] ([facility])[address] [place] [address] SARS coronavirus 2 RNAon SARS-CoV-2 (COVID-19) RNA SPEEDY+probe Ql (Resp) Not detected Normal Not Detected [facility] Comment on above: Order Comment: This assay has received FDA Emergency Use Authorization (EUA) and is only authorized for the duration of time that circumstances exist to justify the authorization of the emergency use of in vitro diagnostic tests for the detection of SARS-CoV-2 virus and/or diagnosis of COVID-19 infection under section 564(b)(1) of the Act, 21 U.S.C. 360bbb-3(b)(1). This assay is an in vitro diagnostic nucleic acid amplification test for the qualitative detection of SARS-CoV-2 from nasopharyngeal specimens and has been validated for use at [facility]. Negative results do not preclude COVID-19 infections and should not be used as the sole basis for diagnosis, treatment, or other management decisions. Performed By: #### 9 4500-6 ####PATRICIA Groves ([id number])[facility] ([facility])[address] [place] [address] SARS-CoV-2 (COVID-19) RNA NA A+probe Ql (Resp)on 10-03-2024 Interpretation and review of laboratory results Normal [facility] Sars-CoV-2 PCRon 10-03-2024 SARS-CoV-2 (COVID-19) RNA SPEEDY+probe Ql (Resp) Not detected Not Detected [facility] XR CHEST 1 VIEWon 10-03-2024 XR CHEST 1 VIEW Interpreted By: Cedric Acosta, STUDY: XR CHEST 1 VIEW; 10/03/2024 4:12 am INDICATION: Signs/Symptoms:Post op cardiac surgery. COMPARISON: Chest radiograph dated 10/02/2024 ACCESSION NUMBER(S): [id number] ORDERING CLINICIAN: REBECCA COURTNEY FINDINGS: AP radiograph of the chest Median sternotomy is noted. The heart is mildly enlarged. 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 Linear atelectasis is noted within lower lobe similar previous study. Bones are diffusely osteoporotic IMPRESSION: 1. Subsegmental atelectasis left lower lobe similar to previous study. Signed by: Cedric Coombs 10/03/2024 7:36 AM Dictation workstation: [id number] [facility] Comment on above: Order Comment: Mich cuellar in ICU XR Chest Single viewon 10-03 [facility] Work Phone: [facility] Work Phone: Radiology Study observation (narrative) [facility] Work Phone: CBC panel Auto (Bld)on 10-02 Erythrocyte distribution width (RBC) [Ratio] 12.6 % 11.5 - 14.5 % [facility] Hematocrit (Bld) [Volume fraction] 28.8 % Low 41.0 - 52.0 % [facility] Hemoglobin (Bld) [Mass/Vol] 9.6 g/dL Low 13.5 - 17.5 g/dL [facility] Interpretation and review of laboratory results Abnormal [facility] MCH (RBC) [Entitic mass] 30.9 pg 26.0 - 34.0 pg [facility] MCHC (RBC) [Mass/Vol] 33.3 g/dL 32.0 - 36.0 g/dL [facility] MCV (RBC) [Entitic vol] 93 fL 80 - 100 fL [facility] Nucleated RBC/100 WBC (Bld) [Ratio] 0.4 % High [facility] Platelets (Bld) [#/Vol] 322 10*3/uL [facility] RBC (Bld) [#/Vol] 3.11 10*6/uL [facility] WBC (Bld) [#/Vol] 9.2 10*3/uL [facility] Erythrocyte distribution width (RBC) [Ratio] 12.6 % Normal 11.5-14.5 [facility] Comment on above: Performed By: #### 5 2969-3 #### PATRICIA Groves ([id number]) [facility] ([facility]) [address] [place] [address] Hematocrit (Bld) [Volume fraction] 28.8 % Low 41.0-52.0 [facility] Comment on above: Performed By: #### 5 2969-3 #### PATRICIA Groves ([id number]) [facility] ([facility]) [address] [place] [address] Hemoglobin (Bld) [Mass/Vol] 9.6 g/dL Low 13.5-17.5 [facility] Comment on above: Performed By: #### 5 2969-3 #### PATRICIA Groves ([id number]) [facility] ([facility]) [id number] [place] [address] MCH (RBC) [Entitic mass] 30.9 pg Normal 26.0-34.0 [facility] Comment on above: Performed By: #### 5 2969-3 #### PATRICIA Groves ([id number]) [facility] ([facility]) [address] [place] [address] MCHC (RBC) [Mass/Vol] 33.3 g/dL Normal 32.0-36.0 [facility] Comment on above: Performed By: #### 5 2969-3 #### PATRICIA Groves ([id number]) [facility] ([facility]) [address] [place] [address] MCV (RBC) [Entitic vol] 93 fL Normal 80-100 [facility] Comment on above: Performed By: #### 5 2969-3 #### PATRICIA Groves ([id number]) [facility] ([facility]) [id number] [place] [address] Nucleated RBC/100 WBC (Bld) [Ratio] 0.4 /100 WBCs High 0.0-0.0 [facility] Comment on above: Performed By: #### 5 2969-3 #### PATRICIA Groves ([id number]) [facility] ([facility]) [id number] [place] [address] Platelets (Bld) [#/Vol] 322 x10*3/uL Normal 150-450 [facility] Comment on above: Performed By: #### 5 2969-3 #### PATRICIA Groves ([id number]) [facility] ([facility]) [address] [place] [address] RBC (Bld) [#/Vol] 3.11 x10*6/uL Low 4.50-5.90 [facility] Comment on above: Performed By: #### 5 2969-3 #### PATRICIA Groves ([id number]) [facility] ([facility]) [address] [place] [address] WBC (Bld) [#/Vol] 9.2 x10*3/uL Normal 4.4-11.3 [facility] Comment on above: Performed By: #### 5 2969-3 #### PATRICIA Groves ([id number]) [facility] ([facility]) [address] [place] [address] Magnesiumon 10-02-2024 Magnesium [Mass/Vol] 2.06 mg/dL 1.60 - 2.40 mg/dL [facility] Magnesium [Mass/Vol] 2.06 mg/dL Normal 1.60-2.40 [facility] Comment on above: Performed By: #### 5 2969-3 #### PATRICIA Groves ([id number]) [facility] ([facility]) [address] [place] [address] Magnesium [Mass/Vol]on 10-02 Interpretation and review of laboratory results Normal [facility] No Panel Informationon 10-02 [facility] Renal function 2000 panelon 10-02-2024 Albumin BCP dye [Mass/Vol] 3.3 g/dL Low 3.4 - 5.0 g/dL [facility] Anion gap [Moles/Vol] 13 mmol/L 10 - 2 0 mmol/L [facility] Calcium [Mass/Vol] 8.8 mg/dL 8.6 - 10. 6 mg/dL [facility] Chloride [Moles/Vol] 100 mmol/L 98 - 10 7 mmol/L [facility] CO2 [Moles/Vol] 28 mmol/L 21 - 32 mmol/L [facility] Creatinine [Mass/Vol] 0.86 mg/dL 0.50 - 1.30 mg/dL [facility] eGFR - PINF [facility] Glucose [Mass/Vol] 86 mg/dL 74 - 99 mg/dL [facility] Interpretation and review of laboratory results Abnormal [facility] Phosphate [Mass/Vol] 2.9 mg/dL 2.5 - 4 .9 mg/dL [facility] Potassium [Moles/Vol] 3.6 mmol/L 3.5 - 5.3 mmol/L [facility] Sodium [Moles/Vol] 137 mmol/L 136 - 145 mmol/L [facility] Urea nitrogen [Mass/Vol] 12 mg/dL 6 - 23 mg/dL [facility] Albumin BCP dye [Mass/Vol] 3.3 g/dL Low 3.4-5.0 [facility] Comment on above: Performed By: #### 5 2969-3 #### PATRICIA Groves ([id number]) [facility] ([facility]) [address] [place] [address] 99396 Anion gap [Moles/Vol] 13 mmol/L Normal 10-20 [facility] Comment on above: Performed By: #### 5 2969-3 #### PATRICIA Groves ([id number]) [facility] ([facility]) [id number] [place] [address] 13836 Calcium [Mass/Vol] 8.8 mg/dL Normal 8.6-10.6 [facility] Comment on above: Performed By: #### 5 2969-3 #### PATRICIA Groves ([id number]) [facility] ([facility]) [id number] [place] [address] 57587 Chloride [Moles/Vol] 100 mmol/L Normal 98-107 [facility] Comment on above: Performed By: #### 5 2969-3 #### PATRICIA Groves ([id number]) [facility] ([facility]) [id number] [place] [address] 48189 CO2 [Moles/Vol] 28 mmol/L Normal 21-[address] [facility] Comment on above: Performed By: #### 5 2969-3 #### PATRICIA Groves ([id number]) [facility] ([facility]) [address] [place] [address] Creatinine [Mass/Vol] 0.86 mg/dL Normal 0.50-1.30 [facility] Comment on above: Performed By: #### 5 2969-3 #### PATRICIA Groves ([id number]) [facility] ([facility]) [address] [place] [address] GFR/1.73 sq M.predicted MDRD (S/P/Bld) [Vol rate/Area] mL/min/{1.73_m2} Normal >60 [facility] Comment on above: Result Comment: Calc ulations of estimated GFR are performed using the 2020 CKD-EPI Study Refit equation without the race variable for the IDMS-Traceable creatinine methods. https://jasn.asnjournals.org/content/early/ASN.81912 30203 Performed By: #### 5 2969-3 #### PATRICIA Groves ([id number]) [facility] ([facility]) [address] [place] [address] Glucose [Mass/Vol] 86 mg/dL Normal 74-99 [facility] Comment on above: Performed By: #### 5 2969-3 #### PATRICIA Groves ([id number]) [facility] ([facility]) [address] [place] [address] Phosphate [Mass/Vol] 2.9 mg/dL Normal 2.5-4.9 [facility] Comment on above: Result Comment: The performance characteristics of phosphorus testing in heparinized plasma have been validated by the individual laboratory site where testing is performed. Testing on heparinized plasma is not approved by the FDA; however, such approval is not necessary. Performed By: #### 5 2969-3 #### PATRICIA Groves ([id number]) [facility] ([facility]) [address] [place] [address] Potassium [Moles/Vol] 3.6 mmol/L Normal 3.5-5.3 [facility] Comment on above: Performed By: #### 5 2969-3 #### PATRICIA MCKEONMOTZER L ([id number]) [facility] ([facility]) [address] [place] [address] Sodium [Moles/Vol] 137 mmol/L Normal 136-145 [facility] Comment on above: Performed By: #### 5 2969-3 #### PATRICIA SCHMOTZER L ([id number]) [facility] ([facility]) [address] [place] [address] Urea nitrogen [Mass/Vol] 12 mg/dL Normal 6-23 [facility] Comment on above: Performed By: #### 5 2969-3 #### PATRICIA MCKEONMOTZER L ([id number]) [facility] ([facility]) [id number] [place] [address] 31281 XR CHEST 1 VIEWon 10-02-2024 XR CHEST 1 VIEW Interpreted By: Cedric Acosta, STUDY: XR CHEST 1 VIEW; 10/02/2024 3:52 am INDICATION: Signs/Symptoms:Post op cardiac surgery. COMPARISON: Chest radiograph dated 10/01/2024 ACCESSION NUMBER(S): [id number] ORDERING CLINICIAN: REBECCA COURTNEY FINDINGS: AP radiograph of the chest Limitations: Decreased lung volumes. The examination is apical lordotic. The patient is rotated to the right. : Median sternotomy is noted. The heart is normal in size. Linear atelectasis and pleural pericardial adhesion is noted within left lower lobe. There is improved pulmonary aeration within left lower lobe in comparison to the prior study. There is linear atelectasis within right lower lobe and right hilum. IMPRESSION: 1. Linear atelectasis within the lung bases greater within the left lower lobe than right. 2. Improved pulmonary aeration within left lower lobe Signed by: Cedric Coombs 10/02/2024 12:46 PM Dictation workstation: [id number] [facility] Comment on above: Order Comment: Mich alisa in ICU XR Chest 2 Viewson 4 UH MMODAL UH MMODAL [facility] Work Phone: [facility] Work Phone: XR Chest Single viewon 10-02 U[facility] MMODAL U[facility] MMODAL [facility] Work Phone: [facility] Work Phone: Radiology Study observation (narrative) [facility] Work Phone: CBC panel Auto (Bld)on 10-01 Erythrocyte distribution width (RBC) [Ratio] 12.3 % 11.5 - 14.5 % [facility] Hematocrit (Bld) [Volume fraction] 27.4 % Low 41.0 - 52.0 % [facility] Hemoglobin (Bld) [Mass/Vol] 9.3 g/dL Low 13.5 - 17.5 g/dL [facility] Interpretation and review of laboratory results Abnormal [facility] MCH (RBC) [Entitic mass] 31.7 pg 26.0 - 34.0 pg [facility] MCHC (RBC) [Mass/Vol] 33.9 g/dL 32.0 - 36.0 g/dL [facility] MCV (RBC) [Entitic vol] 94 fL 80 - 100 fL [facility] Nucleated RBC/100 WBC (Bld) [Ratio] 0.4 % High [facility] Platelets (Bld) [#/Vol] 272 10*3/uL [facility] RBC (Bld) [#/Vol] 2.93 10*6/uL [facility] WBC (Bld) [#/Vol] 9.8 10*3/uL [facility] Erythrocyte distribution width (RBC) [Ratio] 12.3 % Normal 11.5-14.5 [facility] Comment on above: Performed By: #### 5 8077-9 #### BETH FOSTER ([id number]) [facility] ([facility]) [address] [place] [address] 46867 Hematocrit (Bld) [Volume fraction] 27.4 % Low 41.0-52.0 [facility] Comment on above: Performed By: #### 5 8077-9 #### BETH FOSTER ([id number]) [facility] ([facility]) [address] [place] [address]1035 Hemoglobin (Bld) [Mass/Vol] 9.3 g/dL Low 13.5-17.5 [facility] Comment on above: Performed By: #### 5 8077-9 #### BEHT FOSTER ([id number]) [facility] ([facility]) [address] [place] [address] 34831 MCH (RBC) [Entitic mass] 31.7 pg Normal 26.0-34.0 [facility] Comment on above: Performed By: #### 5 8077-9 #### BETH FOSTER ([id number]) [facility] ([facility]) [address] [place] [address] 54214 MCHC (RBC) [Mass/Vol] 33.9 g/dL Normal 32.0-36.0 [facility] Comment on above: Performed By: #### 5 8077-9 #### BETH FOSTER ([id number]) [facility] ([facility]) [address] [place] [address] 47061 MCV (RBC) [Entitic vol] 94 fL Normal 80-100 [facility] Comment on above: Performed By: #### 5 8077-9 #### BETH FOSTER ([id number]) [facility] ([facility]) [address] [place] [address] 38287 Nucleated RBC/100 WBC (Bld) [Ratio] 0.4 /100 WBCs High 0.0-0.0 [facility] Comment on above: Performed By: #### 5 8077-9 #### BETH FOSTER ([id number]) [facility] ([facility]) [address] [place] [address] 24415 Platelets (Bld) [#/Vol] 272 x10*3/uL Normal 150-450 [facility] Comment on above: Performed By: #### 5 8077-9 #### BETH FOSTER ([id number]) [facility] ([facility]) [address] [place] [address] 51054 RBC (Bld) [#/Vol] 2.93 x10*6/uL Low 4.50-5.90 [facility] Comment on above: Performed By: #### 5 8077-9 #### BETH FOSTER ([id number]) [facility] ([facility]) [address] [place] [address] 58430 WBC (Bld) [#/Vol] 9.8 x10*3/uL Normal 4.4-11.3 [facility] Comment on above: Performed By: #### 5 8077-9 #### BETH FOSTER ([id number]) [facility] ([facility]) [address] [place] [address] 76531 Glucose Test strip manual (B ld) [Mass/Vol]on 10-01-2024 Glucose [Mass/Vol] 119 mg/dL High 74 - 99 mg/dL [facility] Interpretation and review of laboratory results Abnormal [facility] Glucose [Mass/Vol] 119 mg/dL High 74-99 [facility] Comment on above: Performed By: #### 5 2969-3 #### PATRICIA Groves ([id number]) [facility] ([facility]) [address] [place] [address] 94416 Glucose [Mass/Vol] 115 mg/dL High 74 - 99 mg/dL [facility] Interpretation and review of laboratory results Abnormal [facility] Glucose [Mass/Vol] 115 mg/dL High 74-99 [facility] Comment on above: Performed By: #### 5 2969-3 #### PATRICIA Groves ([id number]) [facility] ([facility]) [address] [place] [address] 09977 Glucose [Mass/Vol] 111 mg/dL High 74 - 99 mg/dL [facility] Interpretation and review of laboratory results Abnormal [facility] Glucose [Mass/Vol] 111 mg/dL High 74-99 [facility] Comment on above: Performed By: #### 5 2969-3 #### PATRICIA Groves ([id number]) [facility] ([facility]) [address] [place] [address] 64211 Magnesiumon 11-10-2024 Magnesium [Mass/Vol] 1.98 mg/dL 1.60 - 2.40 mg/dL [facility] Magnesium [Mass/Vol] 1.98 mg/dL Normal 1.60-2.40 [facility] Comment on above: Performed By: #### 5 8077-9 #### CAMPOS CRISTIAN ([id number]) [facility] ([facility]) [address] [place] [address] Magnesium [Mass/Vol]on 10-01 Interpretation and review of laboratory results Normal [facility] No Panel Informationon 10-01 [facility] Renal function 2000 panelon 10-01-2024 Albumin BCP dye [Mass/Vol] 3.3 g/dL Low 3.4 - 5.0 g/dL [facility] Anion gap [Moles/Vol] 13 mmol/L 10 - 2 0 mmol/L [facility] Calcium [Mass/Vol] 8.6 mg/dL 8.6 - 10. 6 mg/dL [facility] Chloride [Moles/Vol] 97 mmol/L Low 98 - 10 7 mmol/L [facility] CO2 [Moles/Vol] 31 mmol/L 21 - 32 mmol/L [facility] Creatinine [Mass/Vol] 0.93 mg/dL 0.50 - 1.30 mg/dL [facility] GFR/1.73 sq M.predicted among non-blacks MDRD (S/P/Bld) [Vol rate/Area] 89 mL/min/{1.73_m2} - PINF [facility] Glucose [Mass/Vol] 102 mg/dL High 74 - 99 mg/dL [facility] Interpretation and review of laboratory results Abnormal [facility] Phosphate [Mass/Vol] 3.2 mg/dL 2.5 - 4 .9 mg/dL [facility] Potassium [Moles/Vol] 4 mmol/L 3.5 - 5.3 mmol/L [facility] Sodium [Moles/Vol] 137 mmol/L 136 - 145 mmol/L [facility] Urea nitrogen [Mass/Vol] 14 mg/dL 6 - 23 mg/dL [facility] Albumin BCP dye [Mass/Vol] 3.3 g/dL Low 3.4-5.0 [facility] Comment on above: Performed By: #### 5 2969-3 #### PATRICIA RYAN L ([id number]) [facility] ([facility]) [address] [place] [address] Anion gap [Moles/Vol] 13 mmol/L Normal 10-20 [facility] Comment on above: Performed By: #### 5 2969-3 #### PATRICIA RYAN L ([id number]) [facility] ([facility]) [address] [place] [address] 50487 Calcium [Mass/Vol] 8.6 mg/dL Normal 8.6-10.6 [facility] Comment on above: Performed By: #### 5 2969-3 #### PATRICIA RYAN L ([id number]) [facility] ([facility]) [address] [place] [address] 53381 Chloride [Moles/Vol] 97 mmol/L Low 98-107 [facility] Comment on above: Performed By: #### 5 2969-3 #### PATRICIA MCKEONMOTZER L ([id number]) [facility] ([facility]) [address] [place] [address] CO2 [Moles/Vol] 31 mmol/L Normal 21-[address] [facility] Comment on above: Performed By: #### 5 2969-3 #### PATRICIA RYAN L ([id number]) [facility] ([facility]) [address] [place] [address] 89858 Creatinine [Mass/Vol] 0.93 mg/dL Normal 0.50-1.30 [facility] Comment on above: Performed By: #### 5 2969-3 #### PATRICIA HEATONTZWADE L ([id number]) [facility] ([facility]) [id number] [place] [address] 52924 Glomerular filtration rate/1.73 sq M.predicted 89 mL/min/1.73m*2 Normal >60 [facility] Comment on above: Result Comment: Calc ulations of estimated GFR are performed using the 2020 CKD-EPI Study Refit equation without the race variable for the IDMS-Traceable creatinine methods. https://jasn.asnjournals.org/content//ASN.75217 52583 Performed By: #### 5 2969-3 #### PATRICIA Groves ([id number]) [facility] ([facility]) [address] [place] [address] Glucose [Mass/Vol] 102 mg/dL High 74-99 [facility] Comment on above: Performed By: #### 5 2969-3 #### PATRICIA Groves ([id number]) [facility] ([facility]) [id number] [place] [address] 83499 Phosphate [Mass/Vol] 3.2 mg/dL Normal 2.5-4.9 [facility] Comment on above: Result Comment: The performance characteristics of phosphorus testing in heparinized plasma have been validated by the individual laboratory site where testing is performed. Testing on heparinized plasma is not approved by the FDA; however, such approval is not necessary. Performed By: #### 5 2969-3 #### PATRICIA Groves ([id number]) [facility] ([facility]) [address] [place] [address] Potassium [Moles/Vol] 4.0 mmol/L Normal 3.5-5.3 [facility] Comment on above: Performed By: #### 5 2969-3 #### PATRICIA RYAN L ([id number]) [facility] ([facility]) [address] [place] [address] Sodium [Moles/Vol] 137 mmol/L Normal 136-145 [facility] Comment on above: Performed By: #### 5 2969-3 #### PATRICIA RYAN L ([id number]) [facility] ([facility]) [address] [place] [address] 65063 Urea nitrogen [Mass/Vol] 14 mg/dL Normal 6-23 [facility] Comment on above: Performed By: #### 5 2969-3 #### PATRICIA RYAN L ([id number]) [facility] ([facility]) [address] [place] [address] XR CHEST 2 VIEWSon 4 XR CHEST 2 VIEWS Interpreted By: Cedric Acosta, STUDY: XR CHEST 2 VIEWS; 10/01/2024 8:59 am INDICATION: Signs/Symptoms:Post CABG CT removal. COMPARISON: Portable chest 09/30/2024 ACCESSION NUMBER(S): [id number] ORDERING CLINICIAN: MARVA FUNES TECHNIQUE: Two views of the chest utilizing dual energy subtraction FINDINGS: Median sternotomy is noted. The heart is enlarged. Atheromatous ectasia of the thoracic aorta is noted. Subsegmental atelectasis and small left pleural effusion is noted. There is slightly improved pulmonary aeration within right lower lobe. Linear atelectasis within right lower lobe above the diaphragm persists. Mild blunting of the right costophrenic sulcus is noted. IMPRESSION: 1. Subsegmental atelectasis left lower lobe and small left pleural effusion 2. Linear atelectasis and trace right pleural effusion likely MACRO: None Signed by: Cedric Coombs 10/02/2024 7:31 AM Dictation workstation: [id number] Normal [facility] XR Chest 2 Viewson 4 Radiology Study observation (narrative) [facility] Work Phone: CBC panel Auto (Bld)on 09-30 Erythrocyte distribution width (RBC) [Ratio] 12.6 % 11.5 - 14.5 % [facility] Hematocrit (Bld) [Volume fraction] 28.9 % Low 41.0 - 52.0 % [facility] Hemoglobin (Bld) [Mass/Vol] 9.4 g/dL Low 13.5 - 17.5 g/dL [facility] Interpretation and review of laboratory results Abnormal [facility] MCH (RBC) [Entitic mass] 30.3 pg 26.0 - 34.0 pg [facility] MCHC (RBC) [Mass/Vol] 32.5 g/dL 32.0 - 36.0 g/dL [facility] MCV (RBC) [Entitic vol] 93 fL 80 - 100 fL [facility] Nucleated RBC/100 WBC (Bld) [Ratio] 0.2 % High [facility] Platelets (Bld) [#/Vol] 273 10*3/uL [facility] RBC (Bld) [#/Vol] 3.1 10*6/uL Low [facility] WBC (Bld) [#/Vol] 11.1 10*3/uL [facility] Erythrocyte distribution width (RBC) [Ratio] 12.6 % Normal 11.5-14.5 [facility] Comment on above: Performed By: #### 5 8077-9 #### BETH FOSTER ([id number]) [facility] ([facility]) [address] [place] [address] 03411 Hematocrit (Bld) [Volume fraction] 28.9 % Low 41.0-52.0 [facility] Comment on above: Performed By: #### 5 8077-9 #### BETH FOSTER ([id number]) [facility] ([facility]) [address] [place] [address] 47240 Hemoglobin (Bld) [Mass/Vol] 9.4 g/dL Low 13.5-17.5 [facility] Comment on above: Performed By: #### 5 8077-9 #### BETH FOSTER ([id number]) [facility] ([facility]) [address] [place] [address] 21510 MCH (RBC) [Entitic mass] 30.3 pg Normal 26.0-34.0 [facility] Comment on above: Performed By: #### 5 8077-9 #### BETH FOSTER ([id number]) [facility] ([facility]) [address] [place] [address] 02900 MCHC (RBC) [Mass/Vol] 32.5 g/dL Normal 32.0-36.0 [facility] Comment on above: Performed By: #### 5 8077-9 #### BETH FOSTER ([id number]) [facility] ([facility]) [address] [place] [address] 87468 MCV (RBC) [Entitic vol] 93 fL Normal 80-100 [facility] Comment on above: Performed By: #### 5 8077-9 #### BETH FOSTER ([id number]) [facility] ([facility]) [address] [place] [address] 43387 Nucleated RBC/100 WBC (Bld) [Ratio] 0.2 /100 WBCs High 0.0-0.0 [facility] Comment on above: Performed By: #### 5 8077-9 #### BETH FOSTER ([id number]) [facility] ([facility]) [address] [place] [address] 08251 Platelets (Bld) [#/Vol] 273 x10*3/uL Normal 150-450 [facility] Comment on above: Performed By: #### 5 8077-9 #### BETH FOSTER ([id number]) [facility] ([facility]) [address] [place] [address] 57573 RBC (Bld) [#/Vol] 3.10 x10*6/uL Low 4.50-5.90 [facility] Comment on above: Performed By: #### 5 8077-9 #### BETH FOSTER ([id number]) [facility] ([facility]) [address] [place] [address] 15859 WBC (Bld) [#/Vol] 11.1 x10*3/uL Normal 4.4-11.3 [facility] Comment on above: Performed By: #### 5 8077-9 #### BETH FOSTER ([id number]) [facility] ([facility]) [address] [place] [address] 57422 Glucose Test strip manual (B ld) [Mass/Vol]on 09-30-2024 Glucose [Mass/Vol] 126 mg/dL High 74 - 99 mg/dL [facility] Interpretation and review of laboratory results Abnormal [facility] Glucose [Mass/Vol] 126 mg/dL High 74-99 [facility] Comment on above: Performed By: #### 5 8077-9 #### BETH FOSTER ([id number]) [facility] ([facility]) [address] [place] [address] 86304 Glucose [Mass/Vol] 121 mg/dL High 74 - 99 mg/dL [facility] Interpretation and review of laboratory results Abnormal [facility] Glucose [Mass/Vol] 121 mg/dL High 74-99 [facility] Comment on above: Performed By: #### 5 8077-9 #### BETH FOSTER ([id number]) [facility] ([facility]) [address] [place] [address] 03898 Glucose [Mass/Vol] 140 mg/dL High 74 - 99 mg/dL [facility] Interpretation and review of laboratory results Abnormal [facility] Glucose [Mass/Vol] 140 mg/dL High 74-99 [facility] Comment on above: Performed By: #### 5 8077-9 #### BETH FOSTER ([id number]) [facility] ([facility]) [address] [place] [address] 99917 Glucose [Mass/Vol] 136 mg/dL High 74 - 99 mg/dL [facility] Interpretation and review of laboratory results Abnormal [facility] Glucose [Mass/Vol] 136 mg/dL High 74-99 [facility] Comment on above: Performed By: #### 5 8077-9 #### BETH FOSTER ([id number]) [facility] ([facility]) [address] [place] [address] 55724 Magnesiumon 09-30-2024 Magnesium [Mass/Vol] 2.11 mg/dL 1.60 - 2.40 mg/dL [facility] Magnesium [Mass/Vol] 2.11 mg/dL Normal 1.60-2.40 [facility] Comment on above: Performed By: #### 3 4532-2 #### PATRICIA Groves ([id number]) [facility] [address] [place] [address] Magnesium [Mass/Vol]on 09-30 Interpretation and review of laboratory results Normal [facility] No Panel Informationon 09-30 [facility] Renal function 2000 panelon 09-30-2024 Albumin BCP dye [Mass/Vol] 3.5 g/dL 3.4 - 5.0 g/dL [facility] Anion gap [Moles/Vol] 12 mmol/L 10 - 2 0 mmol/L [facility] Calcium [Mass/Vol] 8.9 mg/dL 8.6 - 10. 6 mg/dL [facility] Chloride [Moles/Vol] 98 mmol/L 98 - 10 7 mmol/L [facility] CO2 [Moles/Vol] 31 mmol/L 21 - 32 mmol/L [facility] Creatinine [Mass/Vol] 0.82 mg/dL 0.50 - 1.30 mg/dL [facility] eGFR - PINF [facility] Glucose [Mass/Vol] 115 mg/dL High 74 - 99 mg/dL [facility] Interpretation and review of laboratory results Abnormal [facility] Phosphate [Mass/Vol] 2.9 mg/dL 2.5 - 4 .9 mg/dL [facility] Potassium [Moles/Vol] 4.2 mmol/L 3.5 - 5.3 mmol/L [facility] Sodium [Moles/Vol] 137 mmol/L 136 - 145 mmol/L [facility] Urea nitrogen [Mass/Vol] 17 mg/dL 6 - 23 mg/dL [facility] Albumin BCP dye [Mass/Vol] 3.5 g/dL Normal 3.4-5.0 [facility] Comment on above: Performed By: #### 5 8077-9 #### BETH FOSTER ([id number]) [facility] ([facility]) [address] [place] [address] Anion gap [Moles/Vol] 12 mmol/L Normal 10-20 [facility] Comment on above: Performed By: #### 5 8077-9 #### BETH FOSTER ([id number]) [facility] ([facility]) [address] [place] [address] Calcium [Mass/Vol] 8.9 mg/dL Normal 8.6-10.6 [facility] Comment on above: Performed By: #### 5 8077-9 #### BETH FOSTER ([id number]) [facility] ([facility]) [address] [place] [address] Chloride [Moles/Vol] 98 mmol/L Normal 98-107 [facility] Comment on above: Performed By: #### 5 8077-9 #### BETH FOSTER ([id number]) [facility] ([facility]) [facility] [place] [address] CO2 [Moles/Vol] 31 mmol/L Normal 21-[address] [facility] Comment on above: Performed By: #### 5 8077-9 #### BETH FOSTER ([id number]) [facility] ([facility]) [address] [place] [address] Creatinine [Mass/Vol] 0.82 mg/dL Normal 0.50-1.30 [facility] Comment on above: Performed By: #### 5 8077-9 #### BETH FOSTER ([id number]) [facility] ([facility]) [address] [place] [address] GFR/1.73 sq M.predicted MDRD (S/P/Bld) [Vol rate/Area] mL/min/{1.73_m2} Normal >60 [facility] Comment on above: Result Comment: Calc ulations of estimated GFR are performed using the 2020 CKD-EPI Study Refit equation without the race variable for the IDMS-Traceable creatinine methods. https://jasn.asnjournals.org/content//ASN.93463 43550 Performed By: #### 5 8077-9 #### BETH FOSTER ([id number]) [facility] ([facility]) [address] [place] [address] Glucose [Mass/Vol] 115 mg/dL High 74-99 [facility] Comment on above: Performed By: #### 5 8077-9 #### BETH FOSTER ([id number]) [facility] ([facility]) [address] [place] [address] Phosphate [Mass/Vol] 2.9 mg/dL Normal 2.5-4.9 [facility] Comment on above: Result Comment: The performance characteristics of phosphorus testing in heparinized plasma have been validated by the individual laboratory site where testing is performed. Testing on heparinized plasma is not approved by the FDA; however, such approval is not necessary. Performed By: #### 5 8077-9 #### BETH FOSTER ([id number]) [facility] ([facility]) [address] [place] [address] Potassium [Moles/Vol] 4.2 mmol/L Normal 3.5-5.3 [facility] Comment on above: Performed By: #### 5 8077-9 #### BETH FOSTER ([id number]) [facility] ([facility]) [address] [place] [address] Sodium [Moles/Vol] 137 mmol/L Normal 136-145 [facility] Comment on above: Performed By: #### 5 8077-9 #### BETH FOSTER ([id number]) [facility] ([facility]) [address] [place] [address] Urea nitrogen [Mass/Vol] 17 mg/dL Normal 6-23 [facility] Comment on above: Performed By: #### 5 8077-9 #### BETH FOSTER ([id number]) [facility] ([facility]) [address] [place] [address] 18727 XR CHEST 1 VIEWon 09-30-2024 XR CHEST 1 VIEW Interpreted By: Sonny Edward, STUDY: XR CHEST 1 VIEW; 09/30/2024 4:04 am INDICATION: Signs/Symptoms:Post op cardiac surgery. COMPARISON: 09/29/2024. ACCESSION NUMBER(S): [id number] ORDERING CLINICIAN: REBECCA COURTNEY FINDINGS: CARDIOMEDIASTINAL SILHOUETTE: Patient is status post median sternotomy. LUNGS: Low lung volumes with bilateral chest tubes in place. Slight interval increase in bibasilar atelectasis. No pneumothorax. ABDOMEN: No remarkable upper abdominal findings. BONES: No acute osseous changes. IMPRESSION: 1. Low lung volumes with slight interval increase in bibasilar atelectasis/edema. No pneumothorax. Signed by: Sonny Edward 09/30/2024 6:49 PM Dictation workstation: [id number] [facility] Comment on above: Order Comment: Tomdia row in ICU XR CHEST 1 VIEW Interpreted By: Sonny Edward and Nakamoto Kent STUDY: XR CHEST 1 VIEW; 09/30/2024 9:56 am INDICATION: Signs/Symptoms:CT removal. COMPARISON: Chest radiograph 09/30/2024 ACCESSION NUMBER(S): [id number] ORDERING CLINICIAN: MARVA FUNES FINDINGS: AP radiograph of the chest was provided. Postsurgical changes from median sternotomy. There has been interval removal of the left-sided chest tube. CARDIOMEDIASTINAL SILHOUETTE: Cardiomediastinal silhouette is stable in size and configuration. LUNGS: No pneumothorax there is trace blunting of the left costophrenic angle. There is similar perihilar and interstitial prominence. No focal consolidation.. ABDOMEN: No remarkable upper abdominal findings. BONES: No acute osseous changes. IMPRESSION: 1. Interval removal of left-sided chest tube without evidence of pneumothorax. 2. Similar findings of pulmonary interstitial edema. 3. Trace blunting of the left costophrenic angle which could be compatible with atelectasis or pleural effusion. I personally reviewed the images/study and I agree with the findings as stated by Brian Singleton MD. This study was interpreted at [facility], [place], [place]. MACRO: None Signed by: Sonny Edward 09/30/2024 8:38 PM Dictation workstation: [id number] Normal [facility] XR Chest Single viewon 09-30 [facility] Work Phone: [facility] Work Phone: [facility] Work Phone: Radiology Study observation (narrative) [facility] Work Phone: Radiology Study observation (narrative) [facility] Work Phone: XR Chest Single viewOrdered By: Roselia Edward on 09-30-2024 [facility] Work Phone: CBC panel Auto (Bld)on 09-29 Erythrocyte distribution width (RBC) [Ratio] 12.4 % 11.5 - 14.5 % [facility] Hematocrit (Bld) [Volume fraction] 29.9 % Low 41.0 - 52.0 % [facility] Hemoglobin (Bld) [Mass/Vol] 9.8 g/dL Low 13.5 - 17.5 g/dL [facility] Interpretation and review of laboratory results Abnormal [facility] MCH (RBC) [Entitic mass] 30.9 pg 26.0 - 34.0 pg [facility] MCHC (RBC) [Mass/Vol] 32.8 g/dL 32.0 - 36.0 g/dL [facility] MCV (RBC) [Entitic vol] 94 fL 80 - 100 fL [facility] Nucleated RBC/100 WBC (Bld) [Ratio] 0 % [facility] Platelets (Bld) [#/Vol] 252 10*3/uL [facility] RBC (Bld) [#/Vol] 3.17 10*6/uL Low Unive [facility] WBC (Bld) [#/Vol] 11.8 10*3/uL High Unive [facility] Erythrocyte distribution width (RBC) [Ratio] 12.4 % Normal 11.5-14.5 [facility] Comment on above: Performed By: #### 3 4532-2 #### PATRICIA Groves ([id number]) [facility] ([facility]) [address] [place] [address] Hematocrit (Bld) [Volume fraction] 29.9 % Low 41.0-52.0 [facility] Comment on above: Performed By: #### 3 4532-2 #### PATRICIA Groves ([id number]) [facility] ([facility]) [address] [place] [address] Hemoglobin (Bld) [Mass/Vol] 9.8 g/dL Low 13.5-17.5 [facility] Comment on above: Performed By: #### 3 4532-2 #### PATRICIA Groves ([id number]) [facility] ([facility]) [address] [place] [address] MCH (RBC) [Entitic mass] 30.9 pg Normal 26.0-34.0 [facility] Comment on above: Performed By: #### 3 4532-2 #### PATRICIA Groves ([id number]) [facility] ([facility]) [address] [place] [address] MCHC (RBC) [Mass/Vol] 32.8 g/dL Normal 32.0-36.0 [facility] Comment on above: Performed By: #### 3 4531-2 #### PATRICIA Groves ([id number]) [facility] ([facility]) [address] [place] [address] MCV (RBC) [Entitic vol] 94 fL Normal 80-100 [facility] Comment on above: Performed By: #### 3 453-2 #### PATRICIA Groves ([id number]) [facility] ([facility]) [address] [place] [address] Nucleated RBC/100 WBC (Bld) [Ratio] 0.0 /100 WBCs Normal 0.0-0.0 [facility] Comment on above: Performed By: #### 3 453-2 #### PATRICIA Groves ([id number]) [facility] ([facility]) [address] [place] [address] Platelets (Bld) [#/Vol] 252 x10*3/uL Normal 150-450 [facility] Comment on above: Performed By: #### 3 453-2 #### PATRICIA Groves ([id number]) [facility] ([facility]) [address] [place] [address] RBC (Bld) [#/Vol] 3.17 x10*6/uL Low 4.50-5.90 [facility] Comment on above: Performed By: #### 3 453-2 #### PATRICIA Groves ([id number]) [facility] ([facility]) [address] [place] [address] WBC (Bld) [#/Vol] 11.8 x10*3/uL High 4.4-11.3 [facility] Comment on above: Performed By: #### 3 4532-2 #### PATRICIA Groves ([id number]) [facility] ([facility]) [address] [place] [address] Electrocardiogram, 12-leadOr dered By: Silvino Yoon on 09-29-2024 Atrial Rate 78 BPM [facility] Work Phone: [phone] P Blackburn 48 degrees [facility] Work Phone: [phone] P Offset 205 [facility] Work Phone: [phone] P Onset 150 [facility] Work Phone: [phone] [place] Interval 150 ms [facility] Work Phone: [phone] Q Onset 225 [facility] Work Phone: [phone] QRS Count 13 beats [facility] Work Phone: [phone] QRS Duration 82 ms [facility] Work Phone: [phone] QT Interval 402 ms [facility] Work Phone: [phone] QTC Calculation(Bazett) 458 [facility] Work Phone: [phone] QTC Fredericia 438 [facility] Work Phone: [phone] R Blackburn 7 degrees [facility] Work Phone: [phone] T Blackburn -10 degrees [facility] Work Phone: [phone] T Offset 426 [facility] Work Phone: [phone] Ventricular Rate 78 BPM [facility] Work Phone: [phone] [facility] Work Phone: [phone] Electrocardiogram, 12-leadon 09-29-2024 [facility] Work Phone: Glucose Test strip manual (B ld) [Mass/Vol]on 09-29-2024 Glucose [Mass/Vol] 123 mg/dL High 74 - 99 mg/dL [facility] Interpretation and review of laboratory results Abnormal [facility] Glucose [Mass/Vol] 123 mg/dL High 74-99 [facility] Comment on above: Performed By: #### 3 4532-2 #### PATRICIA Groves ([id number]) [facility] ([facility]) [address] [place] [address] Glucose [Mass/Vol] 140 mg/dL High 74 - 99 mg/dL [facility] Interpretation and review of laboratory results Abnormal [facility] Glucose [Mass/Vol] 140 mg/dL High 74-99 [facility] Comment on above: Performed By: #### 3 4532-2 #### PATRICIA Groves ([id number]) [facility] ([facility]) [address] [place] [address] Glucose [Mass/Vol] 177 mg/dL High 74 - 99 mg/dL [facility] Interpretation and review of laboratory results Abnormal [facility] Glucose [Mass/Vol] 177 mg/dL High 74-99 [facility] Comment on above: Performed By: #### 3 4532-2 #### PATRICIA Groves ([id number]) [facility] ([facility]) [address] [place] [address] Glucose [Mass/Vol] 121 mg/dL High 74 - 99 mg/dL [facility] Interpretation and review of laboratory results Abnormal [facility] Glucose [Mass/Vol] 121 mg/dL High 74-99 [facility] Comment on above: Performed By: #### 3 4532-2 #### PATRICIA Groves ([id number]) [facility] ([facility]) [address] [place] [address] Magnesiumon 09-29-2024 Magnesium [Mass/Vol] 2.3 mg/dL 1.60 - 2.40 mg/dL [facility] Magnesium [Mass/Vol] 2.30 mg/dL Normal 1.60-2.40 [facility] Comment on above: Performed By: #### 3 4532-2 #### PATRICIA Groves ([id number]) [facility] ([facility]) [address] [place] [address] Magnesium [Mass/Vol]on 09-29 Interpretation and review of laboratory results Normal [facility] No Panel Informationon 09-29 [facility] Renal function 2000 panelon 09-29-2024 Albumin BCP dye [Mass/Vol] 3.8 g/dL 3.4 - 5.0 g/dL [facility] Anion gap [Moles/Vol] 13 mmol/L 10 - 2 0 mmol/L [facility] Calcium [Mass/Vol] 8.7 mg/dL 8.6 - 10. 6 mg/dL [facility] Chloride [Moles/Vol] 99 mmol/L 98 - 10 7 mmol/L [facility] CO2 [Moles/Vol] 30 mmol/L 21 - 32 mmol/L [facility] Creatinine [Mass/Vol] 1.08 mg/dL 0.50 - 1.30 mg/dL [facility] GFR/1.73 sq M.predicted among non-blacks MDRD (S/P/Bld) [Vol rate/Area] 74 mL/min/{1.73_m2} - PINF [facility] Glucose [Mass/Vol] 104 mg/dL High 74 - 99 mg/dL [facility] Interpretation and review of laboratory results Abnormal [facility] Phosphate [Mass/Vol] 3.5 mg/dL 2.5 - 4 .9 mg/dL [facility] Potassium [Moles/Vol] 4.6 mmol/L 3.5 - 5.3 mmol/L [facility] Sodium [Moles/Vol] 137 mmol/L 136 - 145 mmol/L [facility] Urea nitrogen [Mass/Vol] 21 mg/dL 6 - 23 mg/dL [facility] Albumin BCP dye [Mass/Vol] 3.8 g/dL Normal 3.4-5.0 [facility] Comment on above: Performed By: #### 3 4532-2 #### PATRICIA Groves ([id number]) [facility] ([facility]) [address] [place] [address] Anion gap [Moles/Vol] 13 mmol/L Normal 10-20 [facility] Comment on above: Performed By: #### 3 4532-2 #### PATRICIA RYAN L ([id number]) [facility] ([facility]) [address] [place] [address] Calcium [Mass/Vol] 8.7 mg/dL Normal 8.6-10.6 [facility] Comment on above: Performed By: #### 3 4532-2 #### PATRICIA Groves (60505) [facility] ([facility]) [address] [place] [address] Chloride [Moles/Vol] 99 mmol/L Normal 98-107 [facility] Comment on above: Performed By: #### 3 4532-2 #### PATRICIA RYAN L ([id number]) [facility] ([facility]) [address] [place] [address] CO2 [Moles/Vol] 30 mmol/L Normal 21-[address] [facility] Comment on above: Performed By: #### 3 4532-2 #### PATRICIA RYAN L ([id number]) [facility] ([facility]) [address] [place] [address] Creatinine [Mass/Vol] 1.08 mg/dL Normal 0.50-1.30 [facility] Comment on above: Performed By: #### 3 4532-2 #### PATRICIA RYAN L ([id number]) [facility] ([facility]) [address] [place] [address] Glomerular filtration rate/1.73 sq M.predicted 74 mL/min/1.73m*2 Normal >60 [facility] Comment on above: Result Comment: Calc ulations of estimated GFR are performed using the 2020 CKD-EPI Study Refit equation without the race variable for the IDMS-Traceable creatinine methods. https://jasn.asnjournals.org/content/early/ASN.51454 44112 Performed By: #### 3 4532-2 #### PATRICIA Groves ([id number]) [facility] ([facility]) [address] [place] [address] Glucose [Mass/Vol] 104 mg/dL High 74-99 [facility] Comment on above: Performed By: #### 3 4532-2 #### PATRICIA Groves ([id number]) [facility] ([facility]) [address] [place] [address] Phosphate [Mass/Vol] 3.5 mg/dL Normal 2.5-4.9 [facility] Comment on above: Result Comment: The performance characteristics of phosphorus testing in heparinized plasma have been validated by the individual laboratory site where testing is performed. Testing on heparinized plasma is not approved by the FDA; however, such approval is not necessary. Performed By: #### 3 4532-2 #### PATRICIA Groves ([id number]) [facility] ([facility]) [address] [place] [address] Potassium [Moles/Vol] 4.6 mmol/L Normal 3.5-5.3 [facility] Comment on above: Performed By: #### 3 4532-2 #### PATRICIA Groves ([id number]) [facility] ([facility]) [address] [place] [address] Sodium [Moles/Vol] 137 mmol/L Normal 136-145 [facility] Comment on above: Performed By: #### 3 4532-2 #### PATRICIA Groves ([id number]) [facility] ([facility]) [address] [place] [address] Urea nitrogen [Mass/Vol] 21 mg/dL Normal 6-23 [facility] Comment on above: Performed By: #### 3 4532-2 #### PATRICIA Groves ([id number]) [facility] ([facility]) [address] [place] [address] XR CHEST 1 VIEWon 09-29-2024 XR CHEST 1 VIEW Interpreted By: Cedric Acosta, STUDY: XR CHEST 1 VIEW; 09/29/2024 4:32 am INDICATION: Signs/Symptoms:Post op cardiac surgery. COMPARISON: Chest radiograph dated 09/28/2024 ACCESSION NUMBER(S): [id number] ORDERING CLINICIAN: REBECCA COURTNEY FINDINGS: AP radiograph of the chest CARDIOMEDIASTINAL SILHOUETTE: The cardiomediastinal silhouette is stable in size and configuration. Aortic knob calcifications are seen. LUNGS: Interstitial pulmonary edema is improved in comparison to previous study. Subsegmental atelectasis within left lower lobe is noted. There is linear atelectasis above the right diaphragm. Trace left pleural effusion likely. ABDOMEN: No remarkable upper abdominal findings. BONES: No acute osseous abnormality. IMPRESSION: 1. Interstitial pulmonary edema is improved in comparison to previous study 2. Subsegmental atelectasis within left lower lobe 3. Trace left pleural effusion likely Signed by: Cedric Coombs 09/29/2024 4:55 PM Dictation workstation: [id number] Normal [facility] Comment on above: Order Comment: Tomor row in ICU XR Chest Single viewon 09-29 [facility] Work Phone: [facility] Work Phone: Radiology Study observation (narrative) [facility] Work Phone: CBC panel Auto (Bld)on 09-28 Erythrocyte distribution width (RBC) [Ratio] 12.2 % 11.5 - 14.5 % [facility] Hematocrit (Bld) [Volume fraction] 31.5 % Low 41.0 - 52.0 % [facility] Hemoglobin (Bld) [Mass/Vol] 10.5 g/dL Low 13.5 - 17.5 g/dL [facility] Interpretation and review of laboratory results Abnormal [facility] MCH (RBC) [Entitic mass] 30.2 pg 26.0 - 34.0 pg [facility] MCHC (RBC) [Mass/Vol] 33.3 g/dL 32.0 - 36.0 g/dL [facility] MCV (RBC) [Entitic vol] 91 fL 80 - 100 fL [facility] Nucleated RBC/100 WBC (Bld) [Ratio] 0 % [facility] Platelets (Bld) [#/Vol] 250 10*3/uL [facility] RBC (Bld) [#/Vol] 3.48 10*6/uL Low Unive [facility] WBC (Bld) [#/Vol] 11.5 10*3/uL High Unive [facility] Erythrocyte distribution width (RBC) [Ratio] 12.2 % Normal 11.5-14.5 [facility] Comment on above: Performed By: #### 1 968-7 #### PATRICIA Groves ([id number]) [facility] ([facility]) [address] [place] [address] Hematocrit (Bld) [Volume fraction] 31.5 % Low 41.0-52.0 [facility] Comment on above: Performed By: #### 1 968-7 #### PATRICIA Groves ([id number]) [facility] ([facility]) [address] [place] [address] Hemoglobin (Bld) [Mass/Vol] 10.5 g/dL Low 13.5-17.5 [facility] Comment on above: Performed By: #### 1 968-7 #### PATRICIA Groves ([id number]) [facility] ([facility]) [address] [place] [address] MCH (RBC) [Entitic mass] 30.2 pg Normal 26.0-34.0 [facility] Comment on above: Performed By: #### 1 968-7 #### PATRICIA Groves ([id number]) [facility] ([facility]) [address] [place] [address] MCHC (RBC) [Mass/Vol] 33.3 g/dL Normal 32.0-36.0 [facility] Comment on above: Performed By: #### 1 968-7 #### PATRICIA Groves ([id number]) [facility] ([facility]) [id number] [place] [address] MCV (RBC) [Entitic vol] 91 fL Normal 80-100 [facility] Comment on above: Performed By: #### 1 968-7 #### PATRICIA Groves ([id number]) [facility] ([facility]) [id number] [place] [address] Nucleated RBC/100 WBC (Bld) [Ratio] 0.0 /100 WBCs Normal 0.0-0.0 [facility] Comment on above: Performed By: #### 1 968-7 #### PATRICIA Groves ([id number]) [facility] ([facility]) [address] [place] [address] Platelets (Bld) [#/Vol] 250 x10*3/uL Normal 150-450 [facility] Comment on above: Performed By: #### 1 968-7 #### PATRICIA Groves ([id number]) [facility] ([facility]) [address] [place] [address] RBC (Bld) [#/Vol] 3.48 x10*6/uL Low 4.50-5.90 [facility] Comment on above: Performed By: #### 1 968-7 #### PATRICIA Groves ([id number]) [facility] ([facility]) [address] [place] [address] WBC (Bld) [#/Vol] 11.5 x10*3/uL High 4.4-11.3 [facility] Comment on above: Performed By: #### 1 968-7 #### PATRICIA Groves ([id number]) [facility] ([facility]) [id number] [place] [address] Calcium, Ionizedon Calcium.ionized (Bld) [Moles/Vol] 1.14 mmol/L 1.1 - 1.33 mmol/L [facility] Calcium.ionizedon 09-28-2024 Calcium.ionized (Bld) [Moles/Vol] 1.14 mmol/L Normal 1.1-1.33 [facility] Comment on above: Result Comment: The performance characteristics of ionized calcium tested in heparinized plasma or serum have been validated by the individual laboratory site where testing is performed. Testing on heparinized plasma or serum is not approved by the FDA; however, such approval is not necessary. Performed By: #### 1 968-7 #### PATRICIA Groves ([id number]) [facility] ([facility]) [address] [place] [address] Calcium.ionized (Bld) [Moles /Vol]on 09-28-2024 Interpretation and review of laboratory results Normal [facility] ECG 12-LEADon 09-28-2024 ECG 12-LEAD Ventricular Rate 78 Atrial Rate 78 P-R Interval 150 QRS Duration 82 Q-T Interval 402 QTC Calculation(Bazett) 458 P Blackburn 48 R Blackburn 7 T Blackburn -10 QRS Count 13 Q Onset 225 P Onset 150 P Offset 205 T Offset 426 QTC Fredericia 438 Diagnosis Normal sinus rhythm Inferior infarct , possibly acute Lateral injury pattern ACUTE OR / STEMI Abnormal ECG When compared with ECG of 07-JUL-2024 22:22, Significant changes have occurred Confirmed by Silvino Yoon ([id number]) on 09/29/2024 10:37:24 AM Normal [facility] Gas and Carbon monoxide and Electrolytes panel (BldA)on 09-28-2024 Anion gap 4 (BldA) [Moles/Vol] 11 [facility] Base excess Calc (Bld) [Moles/Vol] -1.5000 mmol/L -2.0 - 3.0 mmol/L [facility] Calcium.ionized (BldA) [Moles/Vol] 1.14 mmol/L 1.10 - 1.33 mmol/L [facility] Chloride (BldA) [Moles/Vol] 103 mmol/L 98 - 107 mmol/L [facility] CO2 (Bld) [Partial pressure] 41 mm[Hg] [facility] Glucose [Mass/Vol] 159 mg/dL High 74 - 99 mg/dL [facility] HCO3 (Bld) [Moles/Vol] 23.7 mmol/L 22.0 - 26.0 mmol/L [facility] Hematocrit Est (Bld) [Volume fraction] 32 % Low 41.0 - 52.0 % [facility] Hemoglobin (Bld) [Mass/Vol] 10.8 g/dL Low 13.5 - 17.5 g/dL [facility] Inhaled oxygen concentration 100 % [facility] Interpretation and review of laboratory results Abnormal [facility] Lactate (BldA) [Moles/Vol] 2 mmol/L 0.4 - 2.0 mmol/L [facility] Oxygen (Bld) [Partial pressure] 79 mm[Hg] Low [facility] Oxyhemoglobin (BldA) [Mass fraction] 95.1 % 94.0 - 98.0 % [facility] pH (Bld) 7.37 [pH] Low 7.38 - 7.42 pH [facility] Potassium (BldA) [Moles/Vol] 4.4 mmol/L 3.5 - 5.3 mmol/L [facility] Sodium (BldA) [Moles/Vol] 133 mmol/L Low 136 - 145 mmol/L [facility] Anion gap 4 (BldA) [Moles/Vol] 11 mmo/L Normal 10-25 [facility] Comment on above: Performed By: #### 1 968-7 #### PATRICIA Groves ([id number]) [facility] ([facility]) [address] [place] [address] 10125 Base excess Calc (Bld) [Moles/Vol] -1.5000 mmol/L Normal -2.0-3.0 [facility] Comment on above: Performed By: #### 1 968-7 #### PATRICIA Groves ([id number]) [facility] ([facility]) [address] [place] [address] 41377 Calcium.ionized (BldA) [Moles/Vol] 1.14 mmol/L Normal 1.10-1.33 [facility] Comment on above: Performed By: #### 1 968-7 #### PATRICIA Groves ([id number]) [facility] ([facility]) [address] [place] [address] 98876 Chloride (BldA) [Moles/Vol] 103 mmol/L Normal 98-107 [facility] Comment on above: Performed By: #### 1 968-7 #### PATRICIA Groves ([id number]) [facility] ([facility]) [id number] [place] [address]124 CO2 (Bld) [Partial pressure] 41 mm Hg Normal 38-42 [facility] Comment on above: Performed By: #### 1 968-7 #### PATRICIA Groves ([id number]) [facility] ([facility]) [address] [place] [address] 62641 Glucose [Mass/Vol] 159 mg/dL High 74-99 [facility] Comment on above: Performed By: #### 1 968-7 #### PATRICIA Groves ([id number]) [facility] ([facility]) [address] [place] [address] 38971 HCO3 (Bld) [Moles/Vol] 23.7 mmol/L Normal 22.0-26.0 [facility] Comment on above: Performed By: #### 1 968-7 #### PATRICIA Groves ([id number]) [facility] ([facility]) [address] [place] [address] 96470 Hematocrit Est (Bld) [Volume fraction] 32.0 % Low 41.0-52.0 [facility] Comment on above: Performed By: #### 1 968-7 #### PATRICIA Groves ([id number]) [facility] ([facility]) [address] [place] [address] 19399 Hemoglobin (Bld) [Mass/Vol] 10.8 g/dL Low 13.5-17.5 [facility] Comment on above: Performed By: #### 1 968-7 #### PATRICIA Groves ([id number]) [facility] ([facility]) [address] [place] [address] 21176 Inhaled oxygen concentration 100 % Normal [facility] Comment on above: Performed By: #### 1 968-7 #### PATRICIA Groves ([id number]) [facility] ([facility]) [address] [place] [address] 04901 Lactate (BldA) [Moles/Vol] 2.0 mmol/L Normal 0.4-2.0 [facility] Comment on above: Performed By: #### 1 968-7 #### PATRICIA Groves ([id number]) [facility] ([facility]) [id number] [place] [address] 63181 Oxygen (Bld) [Partial pressure] 79 mm Hg Low 85-95 [facility] Comment on above: Performed By: #### 1 968-7 #### PATRICIA Groves ([id number]) [facility] ([facility]) [address] [place] [address] 53080 Oxyhemoglobin (BldA) [Mass fraction] 95.1 % Normal 94.0-98.0 [facility] Comment on above: Performed By: #### 1 968-7 #### PATRICIA Groves ([id number]) [facility] ([facility]) [address] [place] [address] 89359 pH (Bld) 7.37 [pH] Low 7.38-7.42 [facility] Comment on above: Performed By: #### 1 968-7 #### PATRICIA Groves ([id number]) [facility] ([facility]) [address] [place] [address] 27699 Potassium (BldA) [Moles/Vol] 4.4 mmol/L Normal 3.5-5.3 [facility] Comment on above: Performed By: #### 1 968-7 #### PATRICIA Groves ([id number]) [facility] ([facility]) [address] [place] [address] 57888 Sodium (BldA) [Moles/Vol] 133 mmol/L Low 136-145 [facility] Comment on above: Performed By: #### 1 968-7 #### PATRICIA Groves ([id number]) [facility] ([facility]) [address] [place] [address] 04505 Glucose Test strip manual (B ld) [Mass/Vol]on 09-28-2024 Glucose [Mass/Vol] 138 mg/dL High 74 - 99 mg/dL [facility] Interpretation and review of laboratory results Abnormal [facility] Glucose [Mass/Vol] 138 mg/dL High 74-99 [facility] Comment on above: Performed By: #### 3 4532-2 #### PATRICIA Groves ([id number]) [facility] ([facility]) [address] [place] [address] 07963 Glucose [Mass/Vol] 154 mg/dL High 74 - 99 mg/dL [facility] Interpretation and review of laboratory results Abnormal [facility] Glucose [Mass/Vol] 154 mg/dL High 74-99 [facility] Comment on above: Performed By: #### 1 968-7 #### PATRICIA Groves ([id number]) [facility] ([facility]) [address] [place] [address] 77398 Glucose [Mass/Vol] 166 mg/dL High 74 - 99 mg/dL [facility] Interpretation and review of laboratory results Abnormal [facility] Glucose [Mass/Vol] 166 mg/dL High 74-99 [facility] Comment on above: Performed By: #### 1 968-7 #### PATRICIA Groves ([id number]) [facility] ([facility]) [address] [place] [address] 52395 Glucose [Mass/Vol] 133 mg/dL High 74 - 99 mg/dL [facility] Interpretation and review of laboratory results Abnormal [facility] Glucose [Mass/Vol] 133 mg/dL High 74-99 [facility] Comment on above: Performed By: #### 1 968-7 #### PATRICIA Groves ([id number]) [facility] ([facility]) [address] [place] [address] 07191 Glucose [Mass/Vol] 148 mg/dL High 74 - 99 mg/dL [facility] Interpretation and review of laboratory results Abnormal [facility] Glucose [Mass/Vol] 148 mg/dL High 74-99 [facility] Comment on above: Performed By: #### 1 968-7 #### PATRICIA Groves ([id number]) [facility] ([facility]) [address] [place] [address] 70396 Magnesiumon 09-28-2024 Magnesium [Mass/Vol] 2.2 mg/dL 1.60 - 2.40 mg/dL [facility] Magnesium [Mass/Vol] 2.20 mg/dL Normal 1.60-2.40 [facility] Comment on above: Performed By: #### 1 968-7 #### PATRICIA Groves ([id number]) [facility] ([facility]) [address] [place] [address] 97792 Magnesium [Mass/Vol]on 09-28 Interpretation and review of laboratory results Normal [facility] No Panel Informationon 09-28 Blood Expiration Date 10/24/2024 11:59:00 PM EST [facility] Blood Expiration Date 10/30/2024 11:59:00 PM EST [facility] Dispense Status RE [facility] PRODUCT BLOOD TYPE 6200 [facility] PRODUCT CODE [id number] [facility] Unit ABO A [facility] Unit RH Positive [facility] UNIT VOLUME 350 [facility] XM INTEP COMP [facility] Prepare RBC: 4 Unitson 09-28 Unit Number [id number] [facility] Unit Number [id number] [facility] Unit Number [id number] [facility] Unit Number [id number] [facility] Renal function 2000 panelon 09-28-2024 Albumin BCP dye [Mass/Vol] 3.8 g/dL 3.4 - 5.0 g/dL [facility] Anion gap [Moles/Vol] 12 mmol/L 10 - 2 0 mmol/L [facility] Calcium [Mass/Vol] 8.2 mg/dL Low 8.6 - 10. 6 mg/dL [facility] Chloride [Moles/Vol] 102 mmol/L 98 - 10 7 mmol/L [facility] CO2 [Moles/Vol] 26 mmol/L 21 - 32 mmol/L [facility] Creatinine [Mass/Vol] 0.81 mg/dL 0.50 - 1.30 mg/dL [facility] eGFR - PINF [facility] Glucose [Mass/Vol] 165 mg/dL High 74 - 99 mg/dL [facility] Interpretation and review of laboratory results Abnormal [facility] Phosphate [Mass/Vol] 3.8 mg/dL 2.5 - 4 .9 mg/dL [facility] Potassium [Moles/Vol] 4.3 mmol/L 3.5 - 5.3 mmol/L [facility] Sodium [Moles/Vol] 136 mmol/L 136 - 145 mmol/L [facility] Urea nitrogen [Mass/Vol] 15 mg/dL 6 - 23 mg/dL [facility] Albumin BCP dye [Mass/Vol] 3.8 g/dL Normal 3.4-5.0 [facility] Comment on above: Performed By: #### 1 968-7 #### PATRICIA Groves ([id number]) [facility] ([facility]) [address] [place] [address] 34443 Anion gap [Moles/Vol] 12 mmol/L Normal 10-20 [facility] Comment on above: Performed By: #### 1 968-7 #### PATRICIA Groves ([id number]) [facility] ([facility]) [address] [place] [address] 77613 Calcium [Mass/Vol] 8.2 mg/dL Low 8.6-10.6 [facility] Comment on above: Performed By: #### 1 968-7 #### PATRICIA Groves ([id number]) [facility] ([facility]) [id number] [place] [address] 78980 Chloride [Moles/Vol] 102 mmol/L Normal 98-107 [facility] Comment on above: Performed By: #### 1 968-7 #### PATRICIA Groves ([id number]) [facility] ([facility]) [address] [place] [address] CO2 [Moles/Vol] 26 mmol/L Normal 21-[address] [facility] Comment on above: Performed By: #### 1 968-7 #### PATRICIA Groves ([id number]) [facility] ([facility]) [address] [place] [address] Creatinine [Mass/Vol] 0.81 mg/dL Normal 0.50-1.30 [facility] Comment on above: Performed By: #### 1 968-7 #### PATRICIA Groves ([id number]) [facility] ([facility]) [id number] [place] [address] 51469 GFR/1.73 sq M.predicted MDRD (S/P/Bld) [Vol rate/Area] mL/min/{1.73_m2} Normal >60 [facility] Comment on above: Result Comment: Calc ulations of estimated GFR are performed using the 2020 CKD-EPI Study Refit equation without the race variable for the IDMS-Traceable creatinine methods. https://jasn.asnjournals.org/content/early//ASN.51759 74859 Performed By: #### 1 968-7 #### PATRICIA Groves ([id number]) [facility] ([facility]) [address] [place] [address] Glucose [Mass/Vol] 165 mg/dL High 74-99 [facility] Comment on above: Performed By: #### 1 968-7 #### PATRICIA Groves ([id number]) [facility] ([facility]) [address] [place] [address] 21699 Phosphate [Mass/Vol] 3.8 mg/dL Normal 2.5-4.9 [facility] Comment on above: Result Comment: The performance characteristics of phosphorus testing in heparinized plasma have been validated by the individual laboratory site where testing is performed. Testing on heparinized plasma is not approved by the FDA; however, such approval is not necessary. Performed By: #### 1 968-7 #### PATRICIA Groves ([id number]) [facility] ([facility]) [address] [place] [address] Potassium [Moles/Vol] 4.3 mmol/L Normal 3.5-5.3 [facility] Comment on above: Performed By: #### 1 968-7 #### PATRICIA HEATONTZER L ([id number]) [facility] ([facility]) [address] [place] [address] Sodium [Moles/Vol] 136 mmol/L Normal 136-145 [facility] Comment on above: Performed By: #### 1 968-7 #### PATRICIA RYAN L ([id number]) [facility] ([facility]) [id number] [place] [address] 55638 Urea nitrogen [Mass/Vol] 15 mg/dL Normal 6-23 [facility] Comment on above: Performed By: #### 1 968-7 #### PATRICIA HEATONTZER L ([id number]) [facility] ([facility]) [address] [place] [address] 46554 XR CHEST 1 VIEWon 09-28-2024 XR CHEST 1 VIEW Interpreted By: Cedric Acosta, STUDY: XR CHEST 1 VIEW; 09/28/2024 3:51 am INDICATION: Signs/Symptoms:Post op cardiac surgery. COMPARISON: Chest radiograph dated 09/27/2024 ACCESSION NUMBER(S): [id number] ORDERING CLINICIAN: ELISABETH ATKINS FINDINGS: AP radiograph of the chest The right internal jugular catheter is positioned at the cavoatrial junction. Pleural and mediastinal drains are noted. Median sternotomy sutures and transfixation is noted. The heart is mildly enlarged. Atheromatous disease of the aortic arch is noted. Decreased lung volumes are noted. Mild interstitial pulmonary edema and linear subsegmental atelectasis within lower lobe segments is noted. There is slightly improved pulmonary aeration within the left lower lobe and right lower lobe in comparison to the prior study. Blunting of the right costophrenic sulcus is noted. IMPRESSION: 1. Mild interstitial pulmonary edema 2. Linear subsegmental atelectasis within the lung bases left greater than right 3. Trace left pleural effusion Signed by: Cedric Coombs 09/28/2024 1:20 PM Dictation workstation: [id number] [facility] Comment on above: Order Comment: Mich cuellar in ICU XR Chest Single viewon 09-28 [facility] Work Phone: [facility] Work Phone: Radiology Study observation (narrative) [facility] Work Phone: ACT Coag (Bld)on 09-27-2024 Interpretation and review of laboratory results Normal [facility] Interpretation and review of laboratory results Abnormal [facility] Interpretation and review of laboratory results Abnormal [facility] Interpretation and review of laboratory results Abnormal [facility] Interpretation and review of laboratory results Normal [facility] ACTIVATED CLOTTING TIME HIGH on 09-27-2024 ACT Coag (Bld) 123 [facility] Comment on above: Target ACT range nava l vary based on the patient population, clinical status, and surgical intervention occurring. ACT Coag (Bld) 401 s [facility] Comment on above: Target ACT range nava l vary based on the patient population, clinical status, and surgical intervention occurring. ACT Coag (Bld) 460 s [facility] Comment on above: Target ACT range nava l vary based on the patient population, clinical status, and surgical intervention occurring. ACT Coag (Bld) 535 s [facility] Comment on above: Target ACT range nava l vary based on the patient population, clinical status, and surgical intervention occurring. ACT Coag (Bld) 104 s [facility] Comment on above: Target ACT range nava l vary based on the patient population, clinical status, and surgical intervention occurring. ANESTHESIA INTRAOPERATIVE TE Mio 09-27-2024 ANESTHESIA INTRAOPERATIVE [facility] - Dept of Anesthesiology [address] [place] [address] and TRANSESOPHAGEAL ECHOCARDIOGRAM REPORT Patient Name: CISCO SAINI Reading [id number] Jean-Paul Garg Physician: Study Date: 09/27/2024 Ordering 62455 JEAN-PAUL Moises KEZIA Provider: MRN/PID: [id number] Fellow: Nurse: Date of /Age: 1 1955 [employer]: years Gender assigned at M Additional Staff: : BSA / BMI: m2 / kg/m2 Study Type: ANESTHESIA INTRAOPERATIVE [facility] Diagnosis/ICD: Abnormal findings on diagnostic imaging of heart and coronary circulation-R93.1; 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 The patient is intubated. Agitated saline used as a contrast agent for intraseptal flow evaluation. Total contrast used for this procedure was 10 mL via IV push. Patient's heart rhythm is normal sinus rhythm. There is no evidence of QRS widening on the EKG tracing. The patient was under general anesthesia. PHYSICIAN INTERPRETATION: KEATON Details: The KEATON probe used was X8-2t. Agitated saline contrast and color flow Doppler echo was performed to assess for the presence of a patent foramen ovale. KEATON Medication: IOTEE Anesthesia was used to sedate the patient for this exam. KEATON Procedure: The probe was passed without difficulty. Complications encountered during procedure: Patient tolerated the procedure well without any apparent complications. Left Ventricle: The left ventricular systolic function is normal, with a visually estimated ejection fraction of 60-65%. There are no regional left ventricular wall motion abnormalities. The left ventricular cavity size is mildly dilated. The left ventricular septal wall thickness is normal. Spectral Doppler shows a Grade II (pseudonormal pattern) of left ventricular diastolic filling with an elevated left atrial pressure. Left Atrium: The left atrium is moderate to severely dilated. There is no evidence of a patent foramen ovale. There is a normal sized left atrial appendage, the left atrial appendage Doppler velocities are normal, there is no thrombus visualized in the left atrial appendage and there is no spontaneous contrast noted in the left atrial appendage. Attempted to interrogate atrial septum via color Doppler and saline bubble study -- no shunt seen/no PFO noted. Right Ventricle: The right ventricle is moderately enlarged. There is normal right ventricular global systolic function. RV moderately dilated, normal RV function, no pulmonary HTN noted. Right Atrium: The right atrium is moderately dilated. Aortic Valve: The aortic valve is trileaflet. There is no evidence of aortic valve stenosis. There is no evidence of aortic valve regurgitation. AV trileaflet with mild calcification noted, moderate restriction of right coronary cusp movement, normal MEME/normal gradients, no or AI noted. Mitral Valve: The mitral valve is mild to moderately thickened. There is no evidence of mitral valve stenosis. There is trace to mild mitral valve regurgitation. Moderate mitral annular calcification noted. Mild restriction of leaflet motion secondary to mild LV dilatation. Good coaptation noted, pducg-[id number] MR noted, no MS noted. Tricuspid Valve: The tricuspid valve is structurally normal. There is trace to mild tricuspid regurgitation. Pulmonic Valve: The pulmonic valve is structurally normal. There is mild to moderate pulmonic valve regurgitation. Pericardium: Trivial pericardial effusion. Aorta: The aortic root is normal. There is no evidence of aortic dissection. The descending aorta is classified as a Grade 2 [mild (focal or diffuse) intimal thickening of 2-3 mm] atherosclerosis. In comparison to the previous echocardiogram(s): Not performed on intraoperative study. CONCLUSIONS: 1. The left ventricular systolic function is normal, with a visually estimated ejection fraction of 60-65%. 2. Spectral Doppler shows a Grade II (pseudonormal pattern) of left ventricular diastolic filling with an elevated left atrial pressure. 3. Left ventricular cavity size is mildly dilated. 4. There is normal right ventricular global systolic function. 5. Moderately enlarged right ventricle. 6. RV moderately dilated, normal RV function, no pulmonary HTN noted. 7. The left atrium is moderate to severely dilated. 8. Attempted to interrogate atrial septum via color Doppler and saline bubble study -- no shunt seen/no PFO noted. 9. The right atrium is moderately dilated. 10. Aortic valve stenosis is not present. 11. AV trileaflet with mild calc (more content not included)... [facility] Activated clotting timeon ACT Coag (Bld) 123 s Normal [address] [place] [address] Comment on above: Result Comment: Targ et ACT range will vary based on the patient population, clinical status, and surgical intervention occurring. Performed By: #### 1 988-5 #### PATRICIA Groves ([id number]) [facility] ([facility]) [address] [place] [address] 14778 ACT Coag (Bld) 401 s High [address] [place] [address] Comment on above: Result Comment: Targ et ACT range will vary based on the patient population, clinical status, and surgical intervention occurring. Performed By: #### 1 988-5 #### PATRICIA Groves ([id number]) [facility] ([facility]) [address] [place] [address] 42175 ACT Coag (Bld) [address] Comment on above: Result Comment: Targ et ACT range will vary based on the patient population, clinical status, and surgical intervention occurring. Performed By: #### 1 988-5 #### PATRICIA Groves ([id number]) [facility] ([facility]) [address] [place] [address] 53353 ACT Coag (Bld) [address] Comment on above: Result Comment: Targ et ACT range will vary based on the patient population, clinical status, and surgical intervention occurring. Performed By: #### 3 4529-8 #### PATRICIA Groves ([id number]) [facility] ([facility]) [id number] [place] [address] 78442 ACT Coag (Bld) [address] Comment on above: Result Comment: Targ et ACT range will vary based on the patient population, clinical status, and surgical intervention occurring. Performed By: #### 3 4529-8 #### PATRICIA Groves ([id number]) [facility] ([facility]) [address] [place] [address] 87804 Anesthesia Intraoperative Tr ansesophageal Echocardiogramon 09-27-2024 [facility] - Dept of Anesthesiology [address] [place] [address] and TRANSESOPHAGEAL ECHOCARDIOGRAM REPORT Patient Name: CISCO SAINI Reading [id number] Jean-Paul Johnson Physician: Study Date: 09/27/2024 Ordering [id number] JEAN-PAUL JOHNSON Provider: MRN/PID: [id number] Fellow: Nurse: Date of /Age: 1 1955 [employer]: years Gender assigned at M Additional Staff: : BSA / BMI: m2 / kg/m2 Study Type: ANESTHESIA INTRAOPERATIVE KEATON Diagnosis/ICD: Abnormal findings on diagnostic imaging of heart and coronary circulation-R93.1; 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 The patient is intubated. Agitated saline used as a contrast agent for intraseptal flow evaluation. Total contrast used for this procedure was 10 mL via IV push. Patient's heart rhythm is normal sinus rhythm. There is no evidence of QRS widening on the EKG tracing. The patient was under general anesthesia. PHYSICIAN INTERPRETATION: KEATON Details: The KEATON probe used was X8-2t. Agitated saline contrast and color flow Doppler echo was performed to assess for the presence of a patent foramen ovale. KEATON Medication: IOTEE Anesthesia was used to sedate the patient for this exam. KEATON Procedure: The probe was passed without difficulty. Complications encountered during procedure: Patient tolerated the procedure well without any apparent complications. Left Ventricle: The left ventricular systolic function is normal, with a visually estimated ejection fraction of 60-65%. There are no regional left ventricular wall motion abnormalities. The left ventricular cavity size is mildly dilated. The left ventricular septal wall thickness is normal. Spectral Doppler shows a Grade II (pseudonormal pattern) of left ventricular diastolic filling with an elevated left atrial pressure. Left Atrium: The left atrium is moderate to severely dilated. There is no evidence of a patent foramen ovale. There is a normal sized left atrial appendage, the left atrial appendage Doppler velocities are normal, there is no thrombus visualized in the left atrial appendage and there is no spontaneous contrast noted in the left atrial appendage. Attempted to interrogate atrial septum via color Doppler and saline bubble study -- no shunt seen/no PFO noted. Right Ventricle: The right ventricle is moderately enlarged. There is normal right ventricular global systolic function. RV moderately dilated, normal RV function, no pulmonary HTN noted. Right Atrium: The right atrium is moderately dilated. Aortic Valve: The aortic valve is trileaflet. There is no evidence of aortic valve stenosis. There is no evidence of aortic valve regurgitation. AV trileaflet with mild calcification noted, moderate restriction of right coronary cusp movement, normal MEME/normal gradients, no or AI noted. Mitral Valve: The mitral valve is mild to moderately thickened. There is no evidence of mitral valve stenosis. There is trace to mild mitral valve regurgitation. Moderate mitral annular calcification noted. Mild restriction of leaflet motion secondary to mild LV dilatation. Good coaptation noted, [id number] MR noted, no MS noted. Tricuspid Valve: The tricuspid valve is structurally normal. There is trace to mild tricuspid regurgitation. Pulmonic Valve: The pulmonic valve is structurally normal. There is mild to moderate pulmonic valve regurgitation. Pericardium: Trivial pericardial effusion. Aorta: The aortic root is normal. There is no evidence of aortic dissection. The descending aorta is classified as a Grade 2 [mild (focal or diffuse) intimal thickening of 2-3 mm] atherosclerosis. In comparison to the previous echocardiogram(s): Not performed on intraoperative study. CONCLUSIONS: 1. The left ventricular systolic function is normal, with a visually estimated ejection fraction of 60-65%. 2. Spectral Doppler shows a Grade II (pseudonormal pattern) of left ventricular diastolic filling with an elevated left atrial pressure. 3. Left ventricular cavity size is mildly dilated. 4. There is normal right ventricula (more content not included)... 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 The patient is intubated. Agitated saline used as a contrast agent for intraseptal flow evaluation. Total contrast used for this procedure was 10 mL via IV push. Patient's heart rhythm is normal sinus rhythm. There is no evidence of QRS widening on the EKG tracing. The patient was under general anesthesia. PHYSICIAN INTERPRETATION: KEATON Details: The KEATON probe used was X8-2t. Agitated saline contrast and color flow Doppler echo was performed to assess for the presence of a patent foramen ovale. KEATON Medication: IOTEE Anesthesia was used to sedate the patient for this exam. KEATON Procedure: The probe was passed without difficulty. Complications encountered during procedure: Patient tolerated the procedure well without any apparent complications. Left Ventricle: The left ventricular systolic function is normal, with a visually estimated ejection fraction of 60-65%. There are no regional left ventricular wall motion abnormalities. The left ventricular cavity size is mildly dilated. The left ventricular septal wall thickness is normal. Spectral Doppler shows a Grade II (pseudonormal pattern) of left ventricular diastolic filling with an elevated left atrial pressure. Left Atrium: The left atrium is moderate to severely dilated. There is no evidence of a patent foramen ovale. There is a normal sized left atrial appendage, the left atrial appendage Doppler velocities are normal, there is no thrombus visualized in the left atrial appendage and there is no spontaneous contrast noted in the left atrial appendage. Attempted to interrogate atrial septum via color Doppler and saline bubble study -- no shunt seen/no PFO noted. Right Ventricle: The right ventricle is moderately enlarged. There is normal right ventricular global systolic function. RV moderately dilated, normal RV function, no pulmonary HTN noted. Right Atrium: The right atrium is moderately dilated. Aortic Valve: The aortic valve is trileaflet. There is no evidence of aortic valve stenosis. There is no evidence of aortic valve regurgitation. AV trileaflet with mild calcification noted, moderate restriction of right coronary cusp movement, normal MEME/normal gradients, no or AI noted. Mitral Valve: The mitral valve is mild to moderately thickened. There is no evidence of mitral valve stenosis. There is trace to mild mitral valve regurgitation. Moderate mitral annular calcification noted. Mild restriction of leaflet motion secondary to mild LV dilatation. Good coaptation noted, [id number] MR noted, no MS noted. Tricuspid Valve: The tricuspid valve is structurally normal. There is trace to mild tricuspid regurgitation. Pulmonic Valve: The pulmonic valve is structurally normal. There is mild to moderate pulmonic valve regurgitation. Pericardium: Trivial pericardial effusion. Aorta: The aortic root is normal. There is no evidence of aortic dissection. The descending aorta is classified as a Grade 2 [mild (focal or diffuse) intimal thickening of 2-3 mm] atherosclerosis. In comparison to the previous echocardiogram(s): Not performed on intraoperative study. CONCLUSIONS: 1. The left ventricular systolic function is normal, with a visually estimated ejection fraction of 60-65%. 2. Spectral Doppler shows a Grade II (pseudonormal pattern) of left ventricular diastolic filling with an elevated left atrial pressure. 3. Left ventricular cavity size is mildly dilated. 4. There is normal right ventricular global systolic function. 5. Moderately enlarged right ventricle. 6. RV moderately dilated, normal RV function, no pulmonary HTN noted. 7. The left atrium is moderate to severely dilated. 8. Attempted to interrogate atrial septum via color Doppler and saline bubble study -- no shunt seen/no PFO noted. 9. The right atrium (more content not included)... [facility] Work Phone: SYNGO [facility] Work Phone: CBC panel Auto (Bld)on 09-27 Erythrocyte distribution width (RBC) [Ratio] 12.2 % 11.5 - 14.5 % [facility] Hematocrit (Bld) [Volume fraction] 34.7 % Low 41.0 - 52.0 % [facility] Hemoglobin (Bld) [Mass/Vol] 11.6 g/dL Low 13.5 - 17.5 g/dL [facility] Interpretation and review of laboratory results Abnormal [facility] MCH (RBC) [Entitic mass] 30.4 pg 26.0 - 34.0 pg [facility] MCHC (RBC) [Mass/Vol] 33.4 g/dL 32.0 - 36.0 g/dL [facility] MCV (RBC) [Entitic vol] 91 fL 80 - 100 fL [facility] Nucleated RBC/100 WBC (Bld) [Ratio] 0 % [facility] Platelets (Bld) [#/Vol] 304 10*3/uL [facility] RBC (Bld) [#/Vol] 3.82 10*6/uL Low [facility] WBC (Bld) [#/Vol] 14.2 10*3/uL High [facility]ive [facility] Erythrocyte distribution width (RBC) [Ratio] 12.2 % Normal 11.5-14.5 [facility] Comment on above: Order Comment: On ad lesa to ICU Performed By: #### 2 4323-8 #### PATRICIA Groves ([id number]) [facility] ([facility]) [id number] [place] [address] 31156 Hematocrit (Bld) [Volume fraction] 34.7 % Low 41.0-52.0 [facility] Comment on above: Order Comment: On ad lesa to ICU Performed By: #### 2 4323-8 #### PATRICIA Groves ([id number]) [facility] ([facility]) [id number] [place] [address] 79026 Hemoglobin (Bld) [Mass/Vol] 11.6 g/dL Low 13.5-17.5 [facility] Comment on above: Order Comment: On ad lesa to ICU Performed By: #### 2 4323-8 #### PATRICIA Groves ([id number]) [facility] ([facility]) [address] [place] [address] 79172 MCH (RBC) [Entitic mass] 30.4 pg Normal 26.0-34.0 [facility] Comment on above: Order Comment: On ad lesa to ICU Performed By: #### 2 4323-8 #### PATRICIA Groves ([id number]) [facility] ([facility]) [address] [place] [address] 09553 MCHC (RBC) [Mass/Vol] 33.4 g/dL Normal 32.0-36.0 [facility] Comment on above: Order Comment: On ad lesa to ICU Performed By: #### 2 4323-8 #### PATRICIA Groves ([id number]) [facility] ([facility]) [address] [place] [address] 66113 MCV (RBC) [Entitic vol] 91 fL Normal 80-100 [facility] Comment on above: Order Comment: On ad lesa to ICU Performed By: #### 2 4323-8 #### PATRICIA Groves ([id number]) [facility] ([facility]) [address] [place] [address] 12145 Nucleated RBC/100 WBC (Bld) [Ratio] 0.0 /100 WBCs Normal 0.0-0.0 [facility] Comment on above: Order Comment: On ad lesa to ICU Performed By: #### 2 4323-8 #### PATRICIA Groves ([id number]) [facility] ([facility]) [address] [place] [address] 33279 Platelets (Bld) [#/Vol] 304 x10*3/uL Normal 150-450 [facility] Comment on above: Order Comment: On ad lesa to ICU Performed By: #### 2 4323-8 #### PATRICIA Groves ([id number]) [facility] ([facility]) [address] [place] [address] RBC (Bld) [#/Vol] 3.82 x10*6/uL Low 4.50-5.90 [facility] Comment on above: Order Comment: On ad lesa to ICU Performed By: #### 2 4323-8 #### PATRICIA Groves ([id number]) [facility] ([facility]) [id number] [place] [address] 34746 WBC (Bld) [#/Vol] 14.2 x10*3/uL High 4.4-11.3 [facility] Comment on above: Order Comment: On ad lesa to ICU Performed By: #### 2 4323-8 #### PATRICIA Groves ([id number]) [facility] ([facility]) [address] [place] [address] 13517 Calcium, Ionizedon Calcium.ionized (Bld) [Moles/Vol] 1.11 mmol/L 1.1 - 1.33 mmol/L [facility] Calcium.ionizedon 09-27-2024 Calcium.ionized (Bld) [Moles/Vol] 1.11 mmol/L Normal 1.1-1.33 [facility] Comment on above: Order Comment: On ad lesa to ICU Result Comment: The performance characteristics of ionized calcium tested in heparinized plasma or serum have been validated by the individual laboratory site where testing is performed. Testing on heparinized plasma or serum is not approved by the FDA; however, such approval is not necessary. Performed By: #### 2 4323-8 #### PATRICIA Groves ([id number]) [facility] ([facility]) [address] [place] [address] 04660 Calcium.ionized (Bld) [Moles /Vol]on 09-27-2024 Interpretation and review of laboratory results Normal [facility] Carboxyhemoglobin (BldA) [Ma ss fraction]on 09-27-2024 Deoxyhemoglobin (BldA) [Mass fraction] 0.4 % 0.0 - 5.0 % [facility] Methemoglobin (BldA) [Mass fraction] 0.9 % 0.0 - 1.5 % [facility] Deoxyhemoglobin (BldA) [Mass fraction] 0.4 % Normal 0.0-5.0 [facility] Comment on above: Performed By: #### 1 988-5 #### PATRICIA Groves ([id number]) [facility] ([facility]) [address] [place] [address] 38235 Methemoglobin (BldA) [Mass fraction] 0.9 % Normal 0.0-1.5 [facility] Comment on above: Performed By: #### 1 988-5 #### PATRICIA Groves ([id number]) [facility] ([facility]) [address] [place] [address] 66856 Deoxyhemoglobin (BldA) [Mass fraction] 0.6 % 0.0 - 5.0 % [facility] Methemoglobin (BldA) [Mass fraction] 0.9 % 0.0 - 1.5 % [facility] Deoxyhemoglobin (BldA) [Mass fraction] 0.6 % Normal 0.0-5.0 [facility] Comment on above: Performed By: #### 1 988-5 #### PATRICIA Groves ([id number]) [facility] ([facility]) [address] [place] [address] 85143 Methemoglobin (BldA) [Mass fraction] 0.9 % Normal 0.0-1.5 [facility] Comment on above: Performed By: #### 1 988-5 #### PATRICIA Groves ([id number]) [facility] ([facility]) [address] [place] [address] 22008 Deoxyhemoglobin (BldA) [Mass fraction] 0.5 % 0.0 - 5.0 % [facility] Methemoglobin (BldA) [Mass fraction] 1 % 0.0 - 1.5 % [facility] Deoxyhemoglobin (BldA) [Mass fraction] 0.5 % Normal 0.0-5.0 [facility] Comment on above: Performed By: #### 3 4529-8 #### PATRICIA Groves ([id number]) [facility] ([facility]) [address] [place] [address] 46661 Methemoglobin (BldA) [Mass fraction] 1.0 % Normal 0.0-1.5 [facility] Comment on above: Performed By: #### 3 4529-8 #### PATRICIA Groves ([id number]) [facility] ([facility]) [address] [place] [address] 17956 Deoxyhemoglobin (BldA) [Mass fraction] 2.2 % 0.0 - 5.0 % [facility] Methemoglobin (BldA) [Mass fraction] 1.1 % 0.0 - 1.5 % [facility] Deoxyhemoglobin (BldA) [Mass fraction] 2.2 % Normal 0.0-5.0 [facility] Comment on above: Performed By: #### 3 4529-8 #### PATRICIA Groves ([id number]) [facility] ([facility]) [address] [place] [address] 53452 Methemoglobin (BldA) [Mass fraction] 1.1 % Normal 0.0-1.5 [facility] Comment on above: Performed By: #### 3 4529-8 #### PATRICIA Groves ([id number]) [facility] ([facility]) [address] [place] [address] 18264 Carboxyhemoglobin/Hemoglobin .totalon 09-27-2024 Carboxyhemoglobin (BldA) [Mass fraction] 0.4 % Normal [facility] Comment on above: Result Comment: Ref Values Non-Smokers 0.5-1.5% Smokers 0.5-10.0% Performed By: #### 1 988-5 #### PATRICIA Groves ([id number]) [facility] ([facility]) [address] [place] [address] 07948 Carboxyhemoglobin (BldA) [Mass fraction] 0.4 % Normal [facility] Comment on above: Result Comment: Ref Values Non-Smokers 0.5-1.5% Smokers 0.5-10.0% Performed By: #### 1 988-5 #### PATRICIA Groves ([id number]) [facility] ([facility]) [address] [place] [address] Carboxyhemoglobin (BldA) [Mass fraction] 0.7 % Normal [facility] Comment on above: Result Comment: Ref Values Non-Smokers 0.5-1.5% Smokers 0.5-10.0% Performed By: #### 3 4529-8 #### PATRICIA Groves ([id number]) [facility] ([facility]) [address] [place] [address] Carboxyhemoglobin (BldA) [Mass fraction] 0.8 % Normal [facility] Comment on above: Result Comment: Ref Values Non-Smokers 0.5-1.5% Smokers 0.5-10.0% Performed By: #### 3 4529-8 #### PATRICIA Groves ([id number]) [facility] ([facility]) [id number] [place] [address] 98788 Coox Panel, Arterial Unsolic itedon 09-27-2024 Carboxyhemoglobin (BldA) [Mass fraction] 0.4 % [facility] Carboxyhemoglobin (BldA) [Mass fraction] 0.4 % [facility] Carboxyhemoglobin (BldA) [Mass fraction] 0.7 % [facility] Carboxyhemoglobin (BldA) [Mass fraction] 0.8 % [facility] Fibrinogenon 09-27-2024 Fibrinogen Coag (PPP) [Mass/Vol] 436 mg/dL High 200 - 400 mg/dL [facility] Fibrinogen Coag (PPP) [Mass/Vol] 436 mg/dL High 200-400 [facility] Comment on above: Order Comment: On ad lesa to ICU Performed By: #### 2 4323-8 #### PATRICIA Groves ([id number]) [facility] ([facility]) [id number] [place] [address] 94554 Fibrinogen Coag (PPP) [Mass/ Vol]on 09-27-2024 Interpretation and review of laboratory results Abnormal [facility] Gas AND CO AND electrolytes panelon 09-27-2024 Hemoglobin (Bld) [Mass/Vol] 12.1 g/dL Low 13.5-17.5 [facility] Comment on above: Performed By: #### 1 988-5 #### PATRICIA Groves ([id number]) [facility] ([facility]) [id number] [place] [address] 34114 Oxyhemoglobin (BldA) [Mass fraction] 98.4 % High 94.0-98.0 [facility] Comment on above: Performed By: #### 1 988-5 #### PATRICIA Groves ([id number]) [facility] ([facility]) [address] [place] [address] 43086 Hemoglobin (Bld) [Mass/Vol] 13.1 g/dL Low 13.5-17.5 [facility] Comment on above: Performed By: #### 1 988-5 #### PATRICIA Groves ([id number]) [facility] ([facility]) [address] [place] [address] 07929 Oxyhemoglobin (BldA) [Mass fraction] 98.1 % High 94.0-98.0 [facility] Comment on above: Performed By: #### 1 988-5 #### PATRICIA Groves ([id number]) [facility] ([facility]) [address] [place] [address] 33888 Hemoglobin (Bld) [Mass/Vol] 13.4 g/dL Low 13.5-17.5 [facility] Comment on above: Performed By: #### 3 4529-8 #### PATRICIA Groves ([id number]) [facility] ([facility]) [address] [place] [address] 22156 Oxyhemoglobin (BldA) [Mass fraction] 97.8 % Normal 94.0-98.0 [facility] Comment on above: Performed By: #### 3 4529-8 #### PATRICIA Groves ([id number]) [facility] ([facility]) [address] [place] [address] 22900 Hemoglobin (Bld) [Mass/Vol] 13.7 g/dL Normal 13.5-17.5 [facility] Comment on above: Performed By: #### 3 4529-8 #### PATRICIA Groves ([id number]) [facility] ([facility]) [address] [place] [address] Oxyhemoglobin (BldA) [Mass fraction] 96.0 % Normal 94.0-98.0 [facility] Comment on above: Performed By: #### 3 4529-8 #### PATRICIA Groves ([id number]) [facility] ([facility]) [address] [place] [address] Gas and Carbon monoxide and Electrolytes panel (BldA)on 09-27-2024 Anion gap 4 (BldA) [Moles/Vol] 12 [facility] Base excess Calc (Bld) [Moles/Vol] -1.3000 mmol/L -2.0 - 3.0 mmol/L [facility] Calcium.ionized (BldA) [Moles/Vol] 1.15 mmol/L 1.10 - 1.33 mmol/L [facility] Chloride (BldA) [Moles/Vol] 102 mmol/L 98 - 107 mmol/L [facility] CO2 (Bld) [Partial pressure] 40 mm[Hg] [facility] Glucose [Mass/Vol] 178 mg/dL High 74 - 99 mg/dL [facility] HCO3 (Bld) [Moles/Vol] 23.7 mmol/L 22.0 - 26.0 mmol/L [facility] [facility] Hematocrit Est (Bld) [Volume fraction] 38 % Low 41.0 - 52.0 % [facility] Hemoglobin (Bld) [Mass/Vol] 12.5 g/dL Low 13.5 - 17.5 g/dL [facility] Inhaled oxygen concentration 40 % [facility] Interpretation and review of laboratory results Abnormal [facility] Lactate (BldA) [Moles/Vol] 1.4 mmol/L 0.4 - 2.0 mmol/L [facility] Oxygen (Bld) [Partial pressure] 87 mm[Hg] [facility] Oxyhemoglobin (BldA) [Mass fraction] 95.9 % 94.0 - 98.0 % [facility] pH (Bld) 7.38 [pH] 7.38 - 7.42 pH [facility] Potassium (BldA) [Moles/Vol] 4.6 mmol/L 3.5 - 5.3 mmol/L [facility] Sodium (BldA) [Moles/Vol] 133 mmol/L Low 136 - 145 mmol/L [facility] Anion gap 4 (BldA) [Moles/Vol] 12 mmo/L Normal 10-25 [facility] Comment on above: Performed By: #### 2 4323-8 #### PATRICIA Groves ([id number]) [facility] ([facility]) [address] [place] [address] 70795 Base excess Calc (Bld) [Moles/Vol] -1.3000 mmol/L Normal -2.0-3.0 [facility] Comment on above: Performed By: #### 2 432-8 #### PATRICIA Groves ([id number]) [facility] ([facility]) [address] [place] [address] 14406 Calcium.ionized (BldA) [Moles/Vol] 1.15 mmol/L Normal 1.10-1.33 [facility] Comment on above: Performed By: #### 2 4323-8 #### PATRICIA Groves ([id number]) [facility] ([facility]) [address] [place] [address] 74838 Chloride (BldA) [Moles/Vol] 102 mmol/L Normal 98-107 [facility] Comment on above: Performed By: #### 2 4323-8 #### PATRICIA Groves ([id number]) [facility] ([facility]) [address] [place] [address] 58131 CO2 (Bld) [Partial pressure] 40 mm Hg Normal 38-42 [facility] Comment on above: Performed By: #### 2 4323-8 #### PATRICIA Groves ([id number]) [facility] ([facility]) [address] [place] [address] 94456 Glucose [Mass/Vol] 178 mg/dL High 74-99 [facility] Comment on above: Performed By: #### 2 4323-8 #### PATRICIA Groves ([id number]) [facility] ([facility]) [id number] [place] [address] 70087 HCO3 (Bld) [Moles/Vol] 23.7 mmol/L Normal 22.0-26.0 [facility] Comment on above: Performed By: #### 2 4323-8 #### PATRICIA Groves ([id number]) [facility] ([facility]) [id number] [place] [address] 51630 Hematocrit Est (Bld) [Volume fraction] 38.0 % Low 41.0-52.0 [facility] Comment on above: Performed By: #### 2 4323-8 #### PATRICIA Groves ([id number]) [facility] ([facility]) [id number] [place] [address] 78319 Hemoglobin (Bld) [Mass/Vol] 12.5 g/dL Low 13.5-17.5 [facility] Comment on above: Performed By: #### 2 4323-8 #### PATRICIA Groves ([id number]) [facility] ([facility]) [id number] [place] [address] 39052 Inhaled oxygen concentration 40 % Normal [facility] Comment on above: Performed By: #### 2 4323-8 #### PATRICIA Groves ([id number]) [facility] ([facility]) [id number] [place] [address] 59848 Lactate (BldA) [Moles/Vol] 1.4 mmol/L Normal 0.4-2.0 [facility] Comment on above: Performed By: #### 2 4323-8 #### PATRICIA Groves ([id number]) [facility] ([facility]) [id number] [place] [address] 06766 Oxygen (Bld) [Partial pressure] 87 mm Hg Normal 85-95 [facility] Comment on above: Performed By: #### 2 4323-8 #### PATRICIA Groves ([id number]) [facility] ([facility]) [id number] [place] [address] 62343 Oxyhemoglobin (BldA) [Mass fraction] 95.9 % Normal 94.0-98.0 [facility] Comment on above: Performed By: #### 2 4323-8 #### PATRICIA Groves ([id number]) [facility] ([facility]) [id number] [place] [address] 12791 pH (Bld) 7.38 [pH] Normal 7.38-7.42 [facility] Comment on above: Performed By: #### 2 4323-8 #### PATRICIA Groves ([id number]) [facility] ([facility]) [address] [place] [address] 69556 Potassium (BldA) [Moles/Vol] 4.6 mmol/L Normal 3.5-5.3 [facility] Comment on above: Performed By: #### 2 4323-8 #### PATRICIA Groves ([id number]) [facility] ([facility]) [address] [place] [address] 32782 Sodium (BldA) [Moles/Vol] 133 mmol/L Low 136-145 [facility] Comment on above: Performed By: #### 2 4323-8 #### PATRICIA Groves ([id number]) [facility] ([facility]) [address] [place] [address] 95739 Anion gap 4 (BldA) [Moles/Vol] 13 [facility] Base excess Calc (Bld) [Moles/Vol] -1.2000 mmol/L -2.0 - 3.0 mmol/L [facility] Calcium.ionized (BldA) [Moles/Vol] 1.1 mmol/L 1.10 - 1.33 mmol/L [facility] Chloride (BldA) [Moles/Vol] 103 mmol/L 98 - 107 mmol/L [facility] CO2 (Bld) [Partial pressure] 34 mm[Hg] Low [facility] Glucose [Mass/Vol] 183 mg/dL High 74 - 99 mg/dL [facility] HCO3 (Bld) [Moles/Vol] 22.6 mmol/L 22.0 - 26.0 mmol/L [facility] Hematocrit Est (Bld) [Volume fraction] 37 % Low 41.0 - 52.0 % [facility] Hemoglobin (Bld) [Mass/Vol] 12.3 g/dL Low 13.5 - 17.5 g/dL [facility] Inhaled oxygen concentration 50 % [facility] Interpretation and review of laboratory results Abnormal [facility] Lactate (BldA) [Moles/Vol] 1.6 mmol/L 0.4 - 2.0 mmol/L [facility] Oxygen (Bld) [Partial pressure] 167 mm[Hg] High [facility] Oxyhemoglobin (BldA) [Mass fraction] 97.4 % 94.0 - 98.0 % [facility] pH (Bld) 7.43 [pH] High 7.38 - 7.42 pH [facility] Potassium (BldA) [Moles/Vol] 4.3 mmol/L 3.5 - 5.3 mmol/L [facility] Sodium (BldA) [Moles/Vol] 134 mmol/L Low 136 - 145 mmol/L [facility] Anion gap 4 (BldA) [Moles/Vol] 13 mmo/L Normal 10-25 [facility] Comment on above: Performed By: #### 2 4323-8 #### PATRICIA Groves ([id number]) [facility] ([facility]) [address] [place] [address] 33697 Base excess Calc (Bld) [Moles/Vol] -1.2000 mmol/L Normal -2.0-3.0 [facility] Comment on above: Performed By: #### 2 4323-8 #### PATRICIA Groves ([id number]) [facility] ([facility]) [address] [place] [address] 47845 Calcium.ionized (BldA) [Moles/Vol] 1.10 mmol/L Normal 1.10-1.33 [facility] Comment on above: Performed By: #### 2 4323-8 #### PATRICIA Groves ([id number]) [facility] ([facility]) [address] [place] [address] Chloride (BldA) [Moles/Vol] 103 mmol/L Normal 98-107 [facility] Comment on above: Performed By: #### 2 4323-8 #### PATRICIA Groves ([id number]) [facility] ([facility]) [id number] [place] [address] 95034 CO2 (Bld) [Partial pressure] 34 mm Hg Low 38-42 [facility] Comment on above: Performed By: #### 2 4323-8 #### PATRICIA Groves ([id number]) [facility] ([facility]) [address] [place] [address] 05940 Glucose [Mass/Vol] 183 mg/dL High 74-99 [facility] Comment on above: Performed By: #### 2 4323-8 #### PATRICIA Groves ([id number]) [facility] ([facility]) [id number] [place] [address] 83458 HCO3 (Bld) [Moles/Vol] 22.6 mmol/L Normal 22.0-26.0 [facility] Comment on above: Performed By: #### 2 4323-8 #### PATRICIA Groves ([id number]) [facility] ([facility]) [id number] [place] [address] 92660 Hematocrit Est (Bld) [Volume fraction] 37.0 % Low 41.0-52.0 [facility] Comment on above: Performed By: #### 2 4323-8 #### PATRICIA Groves ([id number]) [facility] ([facility]) [address] [place] [address] 00276 Hemoglobin (Bld) [Mass/Vol] 12.3 g/dL Low 13.5-17.5 [facility] Comment on above: Performed By: #### 2 4323-8 #### PATRICIA Groves ([id number]) [facility] ([facility]) [id number] [place] [address] 68439 Inhaled oxygen concentration 50 % Normal [facility] Comment on above: Performed By: #### 2 4323-8 #### PATRICIA Groves ([id number]) [facility] ([facility]) [address] [place] [address] 02164 Lactate (BldA) [Moles/Vol] 1.6 mmol/L Normal 0.4-2.0 [facility] Comment on above: Performed By: #### 2 4323-8 #### PATRICIA Groves ([id number]) [facility] ([facility]) [address] [place] [address] 66564 Oxygen (Bld) [Partial pressure] 167 mm Hg High 85-95 [facility] Comment on above: Performed By: #### 2 432-8 #### PATRICIA Groves ([id number]) [facility] ([facility]) [address] [place] [address] 73990 Oxyhemoglobin (BldA) [Mass fraction] 97.4 % Normal 94.0-98.0 [facility] Comment on above: Performed By: #### 2 4323-8 #### PATRICIA Groves ([id number]) [facility] ([facility]) [address] [place] [address] 50178 pH (Bld) 7.43 [pH] High 7.38-7.42 [facility] Comment on above: Performed By: #### 2 4323-8 #### PATRICIA Groves ([id number]) [facility] ([facility]) [address] [place] [address] 01700 Potassium (BldA) [Moles/Vol] 4.3 mmol/L Normal 3.5-5.3 [facility] Comment on above: Performed By: #### 2 4323-8 #### PATRICIA Groves ([id number]) [facility] ([facility]) [address] [place] [address] 11747 Sodium (BldA) [Moles/Vol] 134 mmol/L Low 136-145 [facility] Comment on above: Performed By: #### 2 4323-8 #### PATRICIA Groves ([id number]) [facility] ([facility]) [address] [place] [address] Anion gap 4 (BldA) [Moles/Vol] 14 [facility] Base excess Calc (Bld) [Moles/Vol] -2.9000 mmol/L Low -2.0 - 3.0 mmol/L [facility] Calcium.ionized (BldA) [Moles/Vol] 1.23 mmol/L 1.10 - 1.33 mmol/L [facility] Chloride (BldA) [Moles/Vol] 102 mmol/L 98 - 107 mmol/L [facility] CO2 (Bld) [Partial pressure] 50 mm[Hg] High [facility] Glucose [Mass/Vol] 183 mg/dL High 74 - 99 mg/dL [facility] HCO3 (Bld) [Moles/Vol] 24 mmol/L 22.0 - 26.0 mmol/L [facility] Hematocrit Est (Bld) [Volume fraction] 36 % Low 41.0 - 52.0 % [facility] Inhaled oxygen concentration 100 % [facility] Lactate (BldA) [Moles/Vol] 1.7 mmol/L 0.4 - 2.0 mmol/L [facility] Oxygen (Bld) [Partial pressure] 372 mm[Hg] High [facility] pH (Bld) 7.29 [pH] Low 7.38 - 7.42 pH [facility] Potassium (BldA) [Moles/Vol] 4.3 mmol/L 3.5 - 5.3 mmol/L [facility] Sodium (BldA) [Moles/Vol] 136 mmol/L 136 - 145 mmol/L [facility] Anion gap 4 (BldA) [Moles/Vol] 14 mmo/L Normal 10-25 [facility] Comment on above: Performed By: #### 1 988-5 #### PATRICIA Groves ([id number]) [facility] ([facility]) [address] [place] [address] Base excess Calc (Bld) [Moles/Vol] -2.9000 mmol/L Low -2.0-3.0 [facility] Comment on above: Performed By: #### 1 988-5 #### PATRICIA Groves ([id number]) [facility] ([facility]) [address] [place] [address] 07824 Calcium.ionized (BldA) [Moles/Vol] 1.23 mmol/L Normal 1.10-1.33 [facility] Comment on above: Performed By: #### 1 988-5 #### PATRICIA Groves ([id number]) [facility] ([facility]) [address] [place] [address] 52835 Chloride (BldA) [Moles/Vol] 102 mmol/L Normal 98-107 [facility] Comment on above: Performed By: #### 1 988-5 #### PATRICIA Groevs ([id number]) [facility] ([facility]) [address] [place] [address] 31087 CO2 (Bld) [Partial pressure] 50 mm Hg High 38-42 [facility] Comment on above: Performed By: #### 1 988-5 #### PATRICIA Groves ([id number]) [facility] ([facility]) [address] [place] [address] 87465 Glucose [Mass/Vol] 183 mg/dL High 74-99 [facility] Comment on above: Performed By: #### 1 988-5 #### PATRICIA Groves ([id number]) [facility] ([facility]) [address] [place] [address] 22932 HCO3 (Bld) [Moles/Vol] 24.0 mmol/L Normal 22.0-26.0 [facility] Comment on above: Performed By: #### 1 988-5 #### PATRICIA Groves ([id number]) [facility] ([facility]) [address] [place] [address] 68021 Hematocrit Est (Bld) [Volume fraction] 36.0 % Low 41.0-52.0 [facility] Comment on above: Performed By: #### 1 988-5 #### PATRICIA Groves ([id number]) [facility] ([facility]) [address] [place] [address] 65504 Inhaled oxygen concentration 100 % Normal [facility] Comment on above: Performed By: #### 1 988-5 #### PATRICIA Groves ([id number]) [facility] ([facility]) [address] [place] [address] 31342 Lactate (BldA) [Moles/Vol] 1.7 mmol/L Normal 0.4-2.0 [facility] Comment on above: Performed By: #### 1 988-5 #### PATRICIA Groves ([id number]) [facility] ([facility]) [address] [place] [address] 98366 Oxygen (Bld) [Partial pressure] 372 mm Hg High 85-95 [facility] Comment on above: Performed By: #### 1 988-5 #### PATRICIA Groves ([id number]) [facility] ([facility]) [address] [place] [address] 90244 pH (Bld) 7.29 [pH] Low 7.38-7.42 [facility] Comment on above: Performed By: #### 1 988-5 #### PATRICIA Groves ([id number]) [facility] ([facility]) [address] [place] [address] 77346 Potassium (BldA) [Moles/Vol] 4.3 mmol/L Normal 3.5-5.3 [facility] Comment on above: Performed By: #### 1 988-5 #### PATRICIA Groves ([id number]) [facility] ([facility]) [address] [place] [address] 76270 Sodium (BldA) [Moles/Vol] 136 mmol/L Normal 136-145 [facility] Comment on above: Performed By: #### 1 988-5 #### PATRICIA Groves ([id number]) [facility] ([facility]) [address] [place] [address] 29084 Anion gap 4 (BldA) [Moles/Vol] 14 [facility] Base excess Calc (Bld) [Moles/Vol] -2.4000 mmol/L Low -2.0 - 3.0 mmol/L [facility] Calcium.ionized (BldA) [Moles/Vol] 1.26 mmol/L 1.10 - 1.33 mmol/L [facility] Chloride (BldA) [Moles/Vol] 102 mmol/L 98 - 107 mmol/L [facility] CO2 (Bld) [Partial pressure] 45 mm[Hg] High [facility] Glucose [Mass/Vol] 160 mg/dL High 74 - 99 mg/dL [facility] HCO3 (Bld) [Moles/Vol] 23.7 mmol/L 22.0 - 26.0 mmol/L [facility] Hematocrit Est (Bld) [Volume fraction] 38 % Low 41.0 - 52.0 % [facility] Hemoglobin (Bld) [Mass/Vol] 12.6 g/dL Low 13.5 - 17.5 g/dL [facility] Inhaled oxygen concentration 100 % [facility] Interpretation and review of laboratory results Abnormal [facility] Lactate (BldA) [Moles/Vol] 1.5 mmol/L 0.4 - 2.0 mmol/L [facility] Oxygen (Bld) [Partial pressure] 433 mm[Hg] High [facility] Oxyhemoglobin (BldA) [Mass fraction] 98.6 % High 94.0 - 98.0 % [facility] pH (Bld) 7.33 [pH] Low 7.38 - 7.42 pH [facility] Potassium (BldA) [Moles/Vol] 5.4 mmol/L High 3.5 - 5.3 mmol/L [facility] Sodium (BldA) [Moles/Vol] 134 mmol/L Low 136 - 145 mmol/L [facility] Anion gap 4 (BldA) [Moles/Vol] 14 mmo/L Normal 10-25 [facility] Comment on above: Performed By: #### 1 988-5 #### PATRICIA Groves ([id number]) [facility] ([facility]) [address] [place] [address] Base excess Calc (Bld) [Moles/Vol] -2.4000 mmol/L Low -2.0-3.0 [facility] Comment on above: Performed By: #### 1 988-5 #### PATRICIA Groves ([id number]) [facility] ([facility]) [id number] [place] [address] 78807 Calcium.ionized (BldA) [Moles/Vol] 1.26 mmol/L Normal 1.10-1.33 [facility] Comment on above: Performed By: #### 1 988-5 #### PATRICIA Groves ([id number]) [facility] ([facility]) [id number] [place] [address] 04559 Chloride (BldA) [Moles/Vol] 102 mmol/L Normal 98-107 [facility] Comment on above: Performed By: #### 1 988-5 #### PATRICIA Groves ([id number]) [facility] ([facility]) [id number] [place] [address] 54261 CO2 (Bld) [Partial pressure] 45 mm Hg High 38-42 [facility] Comment on above: Performed By: #### 1 988-5 #### PATRICIA Groves ([id number]) [facility] ([facility]) [id number] [place] [address] 59491 Glucose [Mass/Vol] 160 mg/dL High 74-99 [facility] Comment on above: Performed By: #### 1 988-5 #### PATRICIA Groves ([id number]) [facility] ([facility]) [id number] [place] [address] 44664 HCO3 (Bld) [Moles/Vol] 23.7 mmol/L Normal 22.0-26.0 [facility] Comment on above: Performed By: #### 1 988-5 #### PATRICIA Groves ([id number]) [facility] ([facility]) [id number] [place] [address] 83399 Hematocrit Est (Bld) [Volume fraction] 38.0 % Low 41.0-52.0 [facility] Comment on above: Performed By: #### 1 988-5 #### PATRICIA Groves ([id number]) [facility] ([facility]) [address] [place] [address] 91867 Hemoglobin (Bld) [Mass/Vol] 12.6 g/dL Low 13.5-17.5 [facility] Comment on above: Performed By: #### 1 988-5 #### PATRICIA RYAN L ([id number]) [facility] ([facility]) [address] [place] [address] 10561 Inhaled oxygen concentration 100 % Normal [facility] Comment on above: Performed By: #### 1 988-5 #### PATRICIA Groves ([id number]) [facility] ([facility]) [address] [place] [address] 91822 Lactate (BldA) [Moles/Vol] 1.5 mmol/L Normal 0.4-2.0 [facility] Comment on above: Performed By: #### 1 988-5 #### PATRICIA Groves ([id number]) [facility] ([facility]) [address] [place] [address] 93892 Oxygen (Bld) [Partial pressure] 433 mm Hg High 85-95 [facility] Comment on above: Performed By: #### 1 988-5 #### PATRICIA Groves ([id number]) [facility] ([facility]) [address] [place] [address] 14477 Oxyhemoglobin (BldA) [Mass fraction] 98.6 % High 94.0-98.0 [facility] Comment on above: Performed By: #### 1 988-5 #### PATRICIA Groves ([id number]) [facility] ([facility]) [address] [place] [address] 76860 pH (Bld) 7.33 [pH] Low 7.38-7.42 [facility] Comment on above: Performed By: #### 1 988-5 #### PATRICIA Groves ([id number]) [facility] ([facility]) [address] [place] [address] [place] [address] Potassium (BldA) [Moles/Vol] 5.4 mmol/L High 3.5-5.3 [facility] Comment on above: Performed By: #### 1 988-5 #### PATRICIA Groves ([id number]) [facility] ([facility]) [address] [place] [address] Sodium (BldA) [Moles/Vol] 134 mmol/L Low 136-145 [facility] Comment on above: Performed By: #### 1 988-5 #### PATRICIA Groves ([id number]) [facility] ([facility]) [address] [place] [address] Anion gap 4 (BldA) [Moles/Vol] 11 [facility] Base excess Calc (Bld) [Moles/Vol] -0.4000 mmol/L -2.0 - 3.0 mmol/L [facility] Calcium.ionized (BldA) [Moles/Vol] 1.09 mmol/L Low 1.10 - 1.33 mmol/L [facility] Chloride (BldA) [Moles/Vol] 103 mmol/L 98 - 107 mmol/L [facility] CO2 (Bld) [Partial pressure] 42 mm[Hg] [facility] Glucose [Mass/Vol] 137 mg/dL High 74 - 99 mg/dL [facility] HCO3 (Bld) [Moles/Vol] 24.8 mmol/L 22.0 - 26.0 mmol/L [facility] Hematocrit Est (Bld) [Volume fraction] 39 % Low 41.0 - 52.0 % [facility] Inhaled oxygen concentration 100 % [facility] Lactate (BldA) [Moles/Vol] 1.3 mmol/L 0.4 - 2.0 mmol/L [facility] Oxygen (Bld) [Partial pressure] 356 mm[Hg] High [facility] pH (Bld) 7.38 [pH] 7.38 - 7.42 pH [facility] Potassium (BldA) [Moles/Vol] 5.3 mmol/L 3.5 - 5.3 mmol/L [facility] Sodium (BldA) [Moles/Vol] 133 mmol/L Low 136 - 145 mmol/L [facility] Anion gap 4 (BldA) [Moles/Vol] 11 mmo/L Normal 10-25 [facility] Comment on above: Performed By: #### 1 988-5 #### PATRICIA Groves ([id number]) [facility] ([facility]) [address] [place] [id number] Base excess Calc (Bld) [Moles/Vol] -0.4000 mmol/L Normal -2.0-3.0 [facility] Comment on above: Performed By: #### 1 988-5 #### PATRICIA Groves ([id number]) [facility] ([facility]) [address] [place] [id number] Calcium.ionized (BldA) [Moles/Vol] 1.09 mmol/L Low 1.10-1.33 [facility] Comment on above: Performed By: #### 1 988-5 #### PATRICIA Groves ([id number]) [facility] ([facility]) [address] [place] [address] 21723 Chloride (BldA) [Moles/Vol] 103 mmol/L Normal 98-107 [facility] Comment on above: Performed By: #### 1 988-5 #### PATRICIA Groves ([id number]) [facility] ([facility]) [address] [place] [address] 78843 CO2 (Bld) [Partial pressure] 42 mm Hg Normal 38-42 [facility] Comment on above: Performed By: #### 1 988-5 #### PATRICIA Groves ([id number]) [facility] ([facility]) [address] [place] [address] 25688 Glucose [Mass/Vol] 137 mg/dL High 74-99 [facility] Comment on above: Performed By: #### 1 988-5 #### PATRICIA Groves ([id number]) [facility] ([facility]) [address] [place] [address] HCO3 (Bld) [Moles/Vol] 24.8 mmol/L Normal 22.0-26.0 [facility] Comment on above: Performed By: #### 1 988-5 #### PATRICIA Groves ([id number]) [facility] ([facility]) [id number] [place] [address] 80208 Hematocrit Est (Bld) [Volume fraction] 39.0 % Low 41.0-52.0 [facility] Comment on above: Performed By: #### 1 988-5 #### PATRICIA Groves ([id number]) [facility] ([facility]) [id number] [place] [address] 31704 Inhaled oxygen concentration 100 % Normal [facility] Comment on above: Performed By: #### 1 988-5 #### PATRICIA Groves ([id number]) [facility] ([facility]) [address] [place] [address] 21192 Lactate (BldA) [Moles/Vol] 1.3 mmol/L Normal 0.4-2.0 [facility] Comment on above: Performed By: #### 1 988-5 #### PATRICIA Groves ([id number]) [facility] ([facility]) [address] [place] [address] 97125 Oxygen (Bld) [Partial pressure] 356 mm Hg High 85-95 [facility] Comment on above: Performed By: #### 1 988-5 #### PATRICIA Groves ([id number]) [facility] ([facility]) [address] [place] [address] 34929 pH (Bld) 7.38 [pH] Normal 7.38-7.42 [facility] Comment on above: Performed By: #### 1 988-5 #### PATRICIA Groves ([id number]) [facility] ([facility]) [address] [place] [address] 37199 Potassium (BldA) [Moles/Vol] 5.3 mmol/L Normal 3.5-5.3 [facility] Comment on above: Performed By: #### 1 988-5 #### PATRICIA Groves ([id number]) [facility] ([facility]) [address] [place] [address] Sodium (BldA) [Moles/Vol] 133 mmol/L Low 136-145 [facility] Comment on above: Performed By: #### 1 988-5 #### PATRICIA Groves ([id number]) [facility] ([facility]) [address] [place] [address] Anion gap 4 (BldA) [Moles/Vol] 10 [facility] Base excess Calc (Bld) [Moles/Vol] 0.3 mmol/L -2.0 - 3.0 mmol/L [facility] Calcium.ionized (BldA) [Moles/Vol] 1.14 mmol/L 1.10 - 1.33 mmol/L [facility] Chloride (BldA) [Moles/Vol] 103 mmol/L 98 - 107 mmol/L [facility] CO2 (Bld) [Partial pressure] 42 mm[Hg] [facility] Glucose [Mass/Vol] 130 mg/dL High 74 - 99 mg/dL [facility] HCO3 (Bld) [Moles/Vol] 25.4 mmol/L 22.0 - 26.0 mmol/L [facility] Hematocrit Est (Bld) [Volume fraction] 41 % 41.0 - 52.0 % [facility] Hemoglobin (Bld) [Mass/Vol] 13.5 g/dL 13.5 - 17.5 g/dL [facility] Inhaled oxygen concentration 100 % [facility] Interpretation and review of laboratory results Abnormal [facility] Lactate (BldA) [Moles/Vol] 0.9 mmol/L 0.4 - 2.0 mmol/L [facility] Oxygen (Bld) [Partial pressure] 175 mm[Hg] High [facility] Oxyhemoglobin (BldA) [Mass fraction] 98.1 % High 94.0 - 98.0 % [facility] pH (Bld) 7.39 [pH] 7.38 - 7.42 pH [facility] Potassium (BldA) [Moles/Vol] 5.5 mmol/L High 3.5 - 5.3 mmol/L [facility] Sodium (BldA) [Moles/Vol] 133 mmol/L Low 136 - 145 mmol/L [facility] Anion gap 4 (BldA) [Moles/Vol] 10 mmo/L Normal 10-25 [facility] Comment on above: Performed By: #### 3 4529-8 #### PATRICIA Groves ([id number]) [facility] ([facility]) [address] [place] [address] 15214 Base excess Calc (Bld) [Moles/Vol] 0.3 mmol/L Normal -2.0-3.0 [facility] Comment on above: Performed By: #### 3 4529-8 #### PATRICIA Groves ([id number]) [facility] ([facility]) [address] [place] [address] 18093 Calcium.ionized (BldA) [Moles/Vol] 1.14 mmol/L Normal 1.10-1.33 [facility] Comment on above: Performed By: #### 3 4529-8 #### PATRICIA Groves ([id number]) [facility] ([facility]) [address] [place] [address] 62300 Chloride (BldA) [Moles/Vol] 103 mmol/L Normal 98-107 [facility] Comment on above: Performed By: #### 3 4529-8 #### PATRICIA Groves ([id number]) [facility] ([facility]) [address] [place] [address] 44621 CO2 (Bld) [Partial pressure] 42 mm Hg Normal 38-42 [facility] Comment on above: Performed By: #### 3 4529-8 #### PATRICIA Groves ([id number]) [facility] ([facility]) [address] [place] [address] 58638 Glucose [Mass/Vol] 130 mg/dL High 74-99 [facility] Comment on above: Performed By: #### 3 4529-8 #### PATRICIA Groves ([id number]) [facility] ([facility]) [id number] [place] [address] 34324 HCO3 (Bld) [Moles/Vol] 25.4 mmol/L Normal 22.0-26.0 [facility] Comment on above: Performed By: #### 3 4529-8 #### PATRICIA Groves ([id number]) [facility] ([facility]) [id number] [place] [address] 23668 Hematocrit Est (Bld) [Volume fraction] 41.0 % Normal 41.0-52.0 [facility] Comment on above: Performed By: #### 3 4529-8 #### PATRICIA Groves ([id number]) [facility] ([facility]) [address] [place] [address] 33169 Hemoglobin (Bld) [Mass/Vol] 13.5 g/dL Normal 13.5-17.5 [facility] Comment on above: Performed By: #### 3 4529-8 #### PATRICIA Groves ([id number]) [facility] ([facility]) [address] [place] [address] 19010 Inhaled oxygen concentration 100 % Normal [facility] Comment on above: Performed By: #### 3 4529-8 #### PATRICIA Groves ([id number]) [facility] ([facility]) [address] [place] [address] 24197 Lactate (BldA) [Moles/Vol] 0.9 mmol/L Normal 0.4-2.0 [facility] Comment on above: Performed By: #### 3 4529-8 #### PATRICIA Groves ([id number]) [facility] ([facility]) [id number] [place] [address] 51896 Oxygen (Bld) [Partial pressure] 175 mm Hg High 85-95 [facility] Comment on above: Performed By: #### 3 4529-8 #### PATRICIA Groves ([id number]) [facility] ([facility]) [id number] [place] [address] 49446 Oxyhemoglobin (BldA) [Mass fraction] 98.1 % High 94.0-98.0 [facility] Comment on above: Performed By: #### 3 4529-8 #### PATRICIA Groves ([id number]) [facility] ([facility]) [address] [place] [address] 69528 pH (Bld) 7.39 [pH] Normal 7.38-7.42 [facility] Comment on above: Performed By: #### 3 4529-8 #### PATRICIA Groves ([id number]) [facility] ([facility]) [address] [place] [address] 91565 Potassium (BldA) [Moles/Vol] 5.5 mmol/L High 3.5-5.3 [facility] Comment on above: Performed By: #### 3 4529-8 #### PATRICIA Groves ([id number]) [facility] ([facility]) [address] [place] [address] 28317 Sodium (BldA) [Moles/Vol] 133 mmol/L Low 136-145 [facility] Comment on above: Performed By: #### 3 4529-8 #### PATRICIA Groves ([id number]) [facility] ([facility]) [address] [place] [address] 03020 Anion gap 4 (BldA) [Moles/Vol] 8 Low [facility] Base excess Calc (Bld) [Moles/Vol] 1.9 mmol/L -2.0 - 3.0 mmol/L [facility] Calcium.ionized (BldA) [Moles/Vol] 1.18 mmol/L 1.10 - 1.33 mmol/L [facility] Chloride (BldA) [Moles/Vol] 103 mmol/L 98 - 107 mmol/L [facility] CO2 (Bld) [Partial pressure] 50 mm[Hg] High [facility] Glucose [Mass/Vol] 114 mg/dL High 74 - 99 mg/dL [facility] HCO3 (Bld) [Moles/Vol] 28.2 mmol/L High 22.0 - 26.0 mmol/L [facility] Hematocrit Est (Bld) [Volume fraction] 40 % Low 41.0 - 52.0 % [facility] Inhaled oxygen concentration 100 % [facility] Lactate (BldA) [Moles/Vol] 0.8 mmol/L 0.4 - 2.0 mmol/L [facility] Oxygen (Bld) [Partial pressure] 264 mm[Hg] High [facility] pH (Bld) 7.36 [pH] Low 7.38 - 7.42 pH [facility] Potassium (BldA) [Moles/Vol] 5.1 mmol/L 3.5 - 5.3 mmol/L [facility] Sodium (BldA) [Moles/Vol] 134 mmol/L Low 136 - 145 mmol/L [facility] Anion gap 4 (BldA) [Moles/Vol] 8 mmo/L Low 10-25 [facility] Comment on above: Performed By: #### 3 4529-8 #### PATRICIA Groves ([id number]) [facility] ([facility]) [address] [place] [address] 92819 Base excess Calc (Bld) [Moles/Vol] 1.9 mmol/L Normal -2.0-3.0 [facility] Comment on above: Performed By: #### 3 4529-8 #### PATRICIA Groves ([id number]) [facility] ([facility]) [address] [place] [address] 78344 Calcium.ionized (BldA) [Moles/Vol] 1.18 mmol/L Normal 1.10-1.33 [facility] Comment on above: Performed By: #### 3 4529-8 #### PATRICIA Groves ([id number]) [facility] ([facility]) [address] [place] [address] 73365 Chloride (BldA) [Moles/Vol] 103 mmol/L Normal 98-107 [facility] Comment on above: Performed By: #### 3 4529-8 #### PATRICIA Groves ([id number]) [facility] ([facility]) [address] [place] [address] 61447 CO2 (Bld) [Partial pressure] 50 mm Hg High 38-42 [facility] Comment on above: Performed By: #### 3 4529-8 #### PATRICIA Groves ([id number]) [facility] ([facility]) [address] [place] [address] 51704 Glucose [Mass/Vol] 114 mg/dL High 74-99 [facility] Comment on above: Performed By: #### 3 4529-8 #### PATRICIA Groves ([id number]) [facility] ([facility]) [address] [place] [address] 39730 HCO3 (Bld) [Moles/Vol] 28.2 mmol/L High 22.0-26.0 [facility] Comment on above: Performed By: #### 3 4529-8 #### PATRICIA Groves ([id number]) [facility] ([facility]) [address] [place] [address] 11771 Hematocrit Est (Bld) [Volume fraction] 40.0 % Low 41.0-52.0 [facility] Comment on above: Performed By: #### 3 4529-8 #### PATRICIA Groves ([id number]) [facility] ([facility]) [address] [place] [address] 75855 Inhaled oxygen concentration 100 % Normal [facility] Comment on above: Performed By: #### 3 4529-8 #### PATRICIA Groves ([id number]) [facility] ([facility]) [address] [place] [address] 20945 Lactate (BldA) [Moles/Vol] 0.8 mmol/L Normal 0.4-2.0 [facility] Comment on above: Performed By: #### 3 4529-8 #### PATRICIA Groves ([id number]) [facility] ([facility]) [address] [place] [address] 89338 Oxygen (Bld) [Partial pressure] 264 mm Hg High 85-95 [facility] Comment on above: Performed By: #### 3 4529-8 #### PATRICIA Groves ([id number]) [facility] ([facility]) [address] [place] [address] pH (Bld) 7.36 [pH] Low 7.38-7.42 [facility] Comment on above: Performed By: #### 3 4529-8 #### PATRICIA Groves ([id number]) [facility] ([facility]) [id number] [place] [address] 16738 Potassium (BldA) [Moles/Vol] 5.1 mmol/L Normal 3.5-5.3 [facility] Comment on above: Performed By: #### 3 4529-8 #### PATRICIA Groves ([id number]) [facility] ([facility]) [id number] [place] [address] 48107 Sodium (BldA) [Moles/Vol] 134 mmol/L Low 136-145 [facility] Comment on above: Performed By: #### 3 4529-8 #### PATRICIA Groves ([id number]) [facility] ([facility]) [address] [place] [address] 91844 Anion gap 4 (BldA) [Moles/Vol] 9 Low [facility] Base excess Calc (Bld) [Moles/Vol] 2.3 mmol/L -2.0 - 3.0 mmol/L [facility] Calcium.ionized (BldA) [Moles/Vol] 1.17 mmol/L 1.10 - 1.33 mmol/L [facility] Chloride (BldA) [Moles/Vol] 103 mmol/L 98 - 107 mmol/L [facility] CO2 (Bld) [Partial pressure] 39 mm[Hg] [facility] Glucose [Mass/Vol] 96 mg/dL 74 - 99 mg/dL [facility] HCO3 (Bld) [Moles/Vol] 26.5 mmol/L High 22.0 - 26.0 mmol/L [facility] Hematocrit Est (Bld) [Volume fraction] 41 % 41.0 - 52.0 % [facility] Inhaled oxygen concentration 21 % [facility] Interpretation and review of laboratory results Abnormal [facility] Lactate (BldA) [Moles/Vol] 1.5 mmol/L 0.4 - 2.0 mmol/L [facility] Oxygen (Bld) [Partial pressure] 90 mm[Hg] [facility] pH (Bld) 7.44 [pH] High 7.38 - 7.42 pH [facility] Potassium (BldA) [Moles/Vol] 4.5 mmol/L 3.5 - 5.3 mmol/L [facility] Sodium (BldA) [Moles/Vol] 134 mmol/L Low 136 - 145 mmol/L [facility] Anion gap 4 (BldA) [Moles/Vol] 9 mmo/L Low 10-25 [facility] Comment on above: Performed By: #### 3 4529-8 #### PATRICIA Groves ([id number]) [facility] ([facility]) [address] [place] [address] 48282 Base excess Calc (Bld) [Moles/Vol] 2.3 mmol/L Normal -2.0-3.0 [facility] Comment on above: Performed By: #### 3 4529-8 #### PATRICIA Groves ([id number]) [facility] ([facility]) [address] [place] [address] 04325 Calcium.ionized (BldA) [Moles/Vol] 1.17 mmol/L Normal 1.10-1.33 [facility] Comment on above: Performed By: #### 3 4529-8 #### PATRICIA Groves ([id number]) [facility] ([facility]) [address] [place] [address] 14235 Chloride (BldA) [Moles/Vol] 103 mmol/L Normal 98-107 [facility] Comment on above: Performed By: #### 3 4529-8 #### PATRICIA Groves ([id number]) [facility] ([facility]) [address] [place] [address] 23058 CO2 (Bld) [Partial pressure] 39 mm Hg Normal 38-42 [facility] Comment on above: Performed By: #### 3 4529-8 #### PATRICIA Groves ([id number]) [facility] ([facility]) [id number] [place] [address] 80953 Glucose [Mass/Vol] 96 mg/dL Normal 74-99 [facility] Comment on above: Performed By: #### 3 4529-8 #### PATRICIA Groves ([id number]) [facility] ([facility]) [id number] [place] [address] 20062 HCO3 (Bld) [Moles/Vol] 26.5 mmol/L High 22.0-26.0 [facility] Comment on above: Performed By: #### 3 4529-8 #### PATRICIA Groves ([id number]) [facility] ([facility]) [address] [place] [address] 63654 Hematocrit Est (Bld) [Volume fraction] 41.0 % Normal 41.0-52.0 [facility] Comment on above: Performed By: #### 3 4529-8 #### PATRICIA Groves ([id number]) [facility] ([facility]) [address] [place] [address] 03545 Inhaled oxygen concentration 21 % Normal [facility] Comment on above: Performed By: #### 3 4529-8 #### PATRICIA Groves ([id number]) [facility] ([facility]) [address] [place] [address] 90789 Lactate (BldA) [Moles/Vol] 1.5 mmol/L Normal 0.4-2.0 [facility] Comment on above: Performed By: #### 3 4529-8 #### PATRICIA Groves ([id number]) [facility] ([facility]) [address] [place] [address] 96602 Oxygen (Bld) [Partial pressure] 90 mm Hg Normal 85-95 [facility] Comment on above: Performed By: #### 3 4529-8 #### PATRICIA Groves ([id number]) [facility] ([facility]) [address] [place] [address] 46084 pH (Bld) 7.44 [pH] High 7.38-7.42 [facility] Comment on above: Performed By: #### 3 4529-8 #### PATRICIA Groves ([id number]) [facility] ([facility]) [address] [place] [address] 83115 Potassium (BldA) [Moles/Vol] 4.5 mmol/L Normal 3.5-5.3 [facility] Comment on above: Performed By: #### 3 4529-8 #### PATRICIA Groves ([id number]) [facility] ([facility]) [address] [place] [address] 09844 Sodium (BldA) [Moles/Vol] 134 mmol/L Low 136-145 [facility] Comment on above: Performed By: #### 3 4529-8 #### PATRICIA Groves ([id number]) [facility] ([facility]) [address] [place] [address] 34298 Glucose Test strip manual (B ld) [Mass/Vol]on 09-27-2024 Glucose [Mass/Vol] 170 mg/dL High 74 - 99 mg/dL [facility] Interpretation and review of laboratory results Abnormal [facility] Glucose [Mass/Vol] 170 mg/dL High 74-99 [facility] Comment on above: Performed By: #### 2 4323-8 #### PATRICIA Groves ([id number]) [facility] ([facility]) [address] [place] [address] 80928 Laboratory - Chemistry and C hemistry - challengeon 09-27-2024 Oxyhemoglobin (BldA) [Mass fraction] 98.4 % High 94.0 - 98.0 % [facility] Oxyhemoglobin (BldA) [Mass fraction] 98.1 % High 94.0 - 98.0 % [facility] Oxyhemoglobin (BldA) [Mass fraction] 97.8 % 94.0 - 98.0 % [facility] Oxyhemoglobin (BldA) [Mass fraction] 96 % 94.0 - 98.0 % [facility] Laboratory - Hematology and Cell countson 09-27-2024 Hemoglobin (Bld) [Mass/Vol] 12.1 g/dL Low 13.5 - 17.5 g/dL [facility] Hemoglobin (Bld) [Mass/Vol] 13.1 g/dL Low 13.5 - 17.5 g/dL [facility] Hemoglobin (Bld) [Mass/Vol] 13.4 g/dL Low 13.5 - 17.5 g/dL [facility] Hemoglobin (Bld) [Mass/Vol] 13.7 g/dL 13.5 - 17.5 g/dL [facility] Magnesiumon 09-27-2024 Magnesium [Mass/Vol] 2.43 mg/dL High 1.60 - 2.40 mg/dL [facility] Magnesium [Mass/Vol] 2.43 mg/dL High 1.60-2.40 [facility] Comment on above: Order Comment: On ad lesa to ICU Performed By: #### 2 4323-8 #### PATRICIA Groves ([id number]) [facility] ([facility]) [address] [place] [address] No Panel Informationon 09-27 Interpretation and review of laboratory results Abnormal [facility] LV EF 63 % [facility] Work Phone: [facility] Work Phone: Interpretation and review of laboratory results Abnormal [facility] Interpretation and review of laboratory results Abnormal [facility] Interpretation and review of laboratory results Abnormal [facility] PT and aPTT panel Coag (PPP) on 09-27-2024 aPTT Coag (PPP) [Time] 32 s [facility] INR Coag (PPP) [Relative time] 1.1 {INR} 0.9 - 1.1 [facility] Interpretation and review of laboratory results Normal [facility] PT Coag (PPP) [Time] 12.[address] [facility] aPTT Coag (PPP) [Time] 32 s Normal 27-38 [facility] Comment on above: Order Comment: On ad lesa to ICUThe APTT is no longer used for monitoring Unfractionated Heparin Therapy. For monitoring Heparin Therapy, use the Heparin Assay. Performed By: #### 2 4323-8 #### PATRICIA Groves ([id number]) [facility] ([facility]) [address] [place] [id number] INR Coag (PPP) [Relative time] 1.1 Normal 0.9-1.1 [facility] Comment on above: Order Comment: On ad lesa to ICUThe APTT is no longer used for monitoring Unfractionated Heparin Therapy. For monitoring Heparin Therapy, use the Heparin Assay. Performed By: #### 2 4323-8 #### PATRICIA Groves ([id number]) [facility] ([facility]) [address] [place] [id number] PT Coag (PPP) [Time] 12.8 s Normal 9.8-12.8 [facility] Comment on above: Order Comment: On ad lesa to ICUThe APTT is no longer used for monitoring Unfractionated Heparin Therapy. For monitoring Heparin Therapy, use the Heparin Assay. Performed By: #### 2 4323-8 #### PATRICIA Groves ([id number]) [facility] ([facility]) [address] [place] [id number] Renal function 2000 panelon 09-27-2024 Albumin BCP dye [Mass/Vol] 3.7 g/dL 3.4 - 5.0 g/dL [facility] Anion gap [Moles/Vol] 18 mmol/L 10 - 2 0 mmol/L [facility] Calcium [Mass/Vol] 8.4 mg/dL Low 8.6 - 10. 6 mg/dL [facility] Chloride [Moles/Vol] 101 mmol/L 98 - 10 7 mmol/L [facility] CO2 [Moles/Vol] 22 mmol/L 21 - 32 mmol/L [facility] Creatinine [Mass/Vol] 0.96 mg/dL 0.50 - 1.30 mg/dL [facility] GFR/1.73 sq M.predicted among non-blacks MDRD (S/P/Bld) [Vol rate/Area] 86 mL/min/{1.73_m2} - PINF [facility] Glucose [Mass/Vol] 189 mg/dL High 74 - 99 mg/dL [facility] Phosphate [Mass/Vol] 4.1 mg/dL 2.5 - 4 .9 mg/dL [facility] Potassium [Moles/Vol] 4.2 mmol/L 3.5 - 5.3 mmol/L [facility] Sodium [Moles/Vol] 137 mmol/L 136 - 145 mmol/L [facility] Urea nitrogen [Mass/Vol] 15 mg/dL 6 - 23 mg/dL [facility] Albumin BCP dye [Mass/Vol] 3.7 g/dL Normal 3.4-5.0 [facility] Comment on above: Order Comment: On ad lesa to ICU Performed By: #### 2 4323-8 #### PATRICIA Groves ([id number]) [facility] ([facility]) [address] [place] [address] 31591 Anion gap [Moles/Vol] 18 mmol/L Normal 10-20 [facility] Comment on above: Order Comment: On ad lesa to ICU Performed By: #### 2 4323-8 #### PATRICIA Groves ([id number]) [facility] ([facility]) [address] [place] [address] 58138 Calcium [Mass/Vol] 8.4 mg/dL Low 8.6-10.6 [facility] Comment on above: Order Comment: On ad lesa to ICU Performed By: #### 2 4323-8 #### PATRICIA Groves ([id number]) [facility] ([facility]) [id number] [place] [address] 81474 Chloride [Moles/Vol] 101 mmol/L Normal 98-107 [facility] Comment on above: Order Comment: On ad lesa to ICU Performed By: #### 2 4323-8 #### PATRICIA Groves ([id number]) [facility] ([facility]) [address] [place] [address] 58257 CO2 [Moles/Vol] 22 mmol/L Normal 21-[address] [facility] Comment on above: Order Comment: On ad lesa to ICU Performed By: #### 2 4323-8 #### PATRICIA Groves ([id number]) [facility] ([facility]) [address] [place] [address] Creatinine [Mass/Vol] 0.96 mg/dL Normal 0.50-1.30 [facility] Comment on above: Order Comment: On ad lesa to ICU Performed By: #### 2 4323-8 #### PATRICIA Groves ([id number]) [facility] ([facility]) [address] [place] [address] 97238 Glomerular filtration rate/1.73 sq M.predicted 86 mL/min/1.73m*2 Normal >60 [facility] Comment on above: Order Comment: On ad lesa to ICU Result Comment: Calc ulations of estimated GFR are performed using the 2020 CKD-EPI Study Refit equation without the race variable for the IDMS-Traceable creatinine methods. https://jasn.asnjournals.org/content/early//ASN.73934 95961 Performed By: #### 2 4323-8 #### PATRICIA Groves ([id number]) [facility] ([facility]) [address] [place] [address] 29206 Glucose [Mass/Vol] 189 mg/dL High 74-99 [facility] Comment on above: Order Comment: On ad lesa to ICU Performed By: #### 2 4323-8 #### PATRICIA Groves ([id number]) [facility] ([facility]) [address] [place] [address] 57480 Phosphate [Mass/Vol] 4.1 mg/dL Normal 2.5-4.9 [facility] Comment on above: Order Comment: On ad lesa to ICU Result Comment: The performance characteristics of phosphorus testing in heparinized plasma have been validated by the individual laboratory site where testing is performed. Testing on heparinized plasma is not approved by the FDA; however, such approval is not necessary. Performed By: #### 2 4323-8 #### PATRICIA Groves ([id number]) [facility] ([facility]) [id number] [place] [address] 94786 Potassium [Moles/Vol] 4.2 mmol/L Normal 3.5-5.3 [facility] Comment on above: Order Comment: On ad lesa to ICU Performed By: #### 2 4323-8 #### PATRICIA Groves ([id number]) [facility] ([facility]) [id number] [place] [address] 51308 Sodium [Moles/Vol] 137 mmol/L Normal 136-145 [facility] Comment on above: Order Comment: On ad lesa to ICU Performed By: #### 2 4323-8 #### PATRICIA Groves ([id number]) [facility] ([facility]) [address] [place] [address] 97462 Urea nitrogen [Mass/Vol] 15 mg/dL Normal 6-23 [facility] Comment on above: Order Comment: On ad lesa to ICU Performed By: #### 2 4323-8 #### PATRICIA Groves ([id number]) [facility] ([facility]) [address] [place] [address] 02249 TEG Clot Global Profile Unso licitedon 09-27-2024 ANGLE deg Low 63.0 - 78.0 deg [facility] FLEV 473 mg/dL 278 - 581 mg/dL [facility] Interpretation and review of laboratory results Abnormal [facility] K (Clot Kinetics) 3.7 min High 0.8 - 2.1 min [facility] MA ( Rajni Amplitude) FF 26 mm 15.0 - 32.0 mm [facility] MA (Max Amplitude) K 64 mm 52.0 - 69.0 mm [facility] MA (Max Amplitude) RT 66 mm 52.0 - 70.0 mm [facility] R (Reaction Time) K 16.2 min High 4.6 - 9. 1 min [facility] R (Reaction Time) KH 11.5 min High 4.3 - 8 .3 min [facility] Test Comment post protamine [facility] ANGLE 77 deg 63.0 - 78.0 deg [facility] FLEV 586 mg/dL High 278 - 581 mg/dL [facility] Interpretation and review of laboratory results Abnormal [facility] K (Clot Kinetics) 0.9 min 0.8 - 2.1 min [facility] MA ( Rajni Amplitude) FF 32 mm 15.0 - 32.0 mm [facility] MA (Max Amplitude) K 66 mm 52.0 - 69.0 mm [facility] MA (Max Amplitude) RT 68 mm 52.0 - 70.0 mm [facility] R (Reaction Time) K 8.3 min 4.6 - 9. 1 min [facility] R (Reaction Time) KH 7.4 min 4.3 - 8 .3 min [facility] Test Comment baseline [facility] THROMBOELASTOGRAPH CLOTTING GLOBAL PROFILE UNSOLICITEDon 09-27-2024 Clot angle.kaolin induced <39.0 Low 63.0-78.0 [facility] Comment on above: Performed By: #### 1 988-5 #### PATRICIA Groves ([id number]) [facility] ([facility]) [id number] [place] [address] Clot formation.kaolin induced 3.7 min High 0.8-2.1 [facility] Comment on above: Performed By: #### 1 988-5 #### PATRICIA Groves ([id number]) [facility] ([facility]) [address] [place] [address] Clot initiation.kaolin induced 16.2 min High 4.6-9.1 [facility] Comment on above: Performed By: #### 1 988-5 #### PATRICIA Groves ([id number]) [facility] ([facility]) [address] [place], [place] [id number] Clot initiation.kaolin induced^post heparin neutralization 11.5 min High 4.3-8.3 [facility] Comment on above: Performed By: #### 1 988-5 #### PATRICIA Groves ([id number]) [facility] ([facility]) [address] [place] [address] Fibrinogen 473 mg/dL Normal 278-581 [facility] Comment on above: Performed By: #### 1 988-5 #### PATRICIA HEATONTZER L ([id number]) [facility] ([facility]) [address] [place] [address] 19757 Maximum clot strength amplitude.kaolin induced 64.0 mm Normal 52.0-69.0 [facility] Comment on above: Performed By: #### 1 988-5 #### PATRICIA HEATONTZER L ([id number]) [facility] ([facility]) [address] [place] [address] 99691 Maximum clot strength amplitude.kaolin+tissu e factor induced 66.0 mm Normal 52.0-70.0 [facility] Comment on above: Performed By: #### 1 988-5 #### PATRICIA RYAN L ([id number]) [facility] ([facility]) [address] [place] [address] 63347 Maximum clot strength amplitude.tissue factor induced+platelet glycoprotein IIb-IIIa receptor inhibited 26.0 mm Normal 15.0-32.0 [facility] Comment on above: Performed By: #### 1 988-5 #### PATRICIA Groves ([id number]) [facility] ([facility]) [address] [place] [address] 58753 TEST COMMENT post protamine Normal [facility] Comment on above: Performed By: #### 1 988-5 #### PATRICIA MCKEONMOTZER L ([id number]) [facility] ([facility]) [address] [place] [address] 99303 Clot angle.kaolin induced 77.0 deg Normal 63.0-78.0 [facility] Comment on above: Performed By: #### 3 4529-8 #### PATRICIA MCKEONMOTZER L ([id number]) [facility] ([facility]) [address] [place] [address] 19616 Clot formation.kaolin induced 0.9 min Normal 0.8-2.1 [facility] Comment on above: Performed By: #### 3 4529-8 #### PATRICIA MCKEONMOTZER L ([id number]) [facility] ([facility]) [address] [place] [address], [place] [address] Clot initiation.kaolin induced 8.3 min Normal 4.6-9.1 [facility] Comment on above: Performed By: #### 3 4529-8 #### PATRICIA Groves ([id number]) [facility] ([facility]) [id number] [place] [address] 89525 Clot initiation.kaolin induced^post heparin neutralization 7.4 min Normal 4.3-8.3 [facility] Comment on above: Performed By: #### 3 4529-8 #### PATRICIA Groves ([id number]) [facility] ([facility]) [address] [place] [address] 81218 Fibrinogen 586 mg/dL High 278-581 [facility] Comment on above: Performed By: #### 3 4529-8 #### PATRICIA Groves ([id number]) [facility] ([facility]) [address] [place] [address] 12001 Maximum clot strength amplitude.kaolin induced 66.0 mm Normal 52.0-69.0 [facility] Comment on above: Performed By: #### 3 4529-8 #### PATRICIA Groves ([id number]) [facility] ([facility]) [address] [place] [address] 26002 Maximum clot strength amplitude.kaolin+tissu e factor induced 68.0 mm Normal 52.0-70.0 [facility] Comment on above: Performed By: #### 3 4529-8 #### PATRICIA Groves ([id number]) [facility] ([facility]) [address] [place] [address] 20596 Maximum clot strength amplitude.tissue factor induced+platelet glycoprotein IIb-IIIa receptor inhibited 32.0 mm Normal 15.0-32.0 [facility] Comment on above: Performed By: #### 3 4529-8 #### PATRICIA Groves ([id number]) [facility] ([facility]) [address] [place] [address] 25271 TEST COMMENT baseline Normal [facility] Comment on above: Performed By: #### 3 4529-8 #### PATRICIA RYAN L ([id number]) [facility] ([facility]) [address] [place] [phone] VERAB/VERIFY ABORHon 024 ABO group Nom (Bld) A Normal [facility] Comment on above: Performed By: #### 3 4529-8 #### PATRICIA MCKEONMOTZER L ([id number]) [facility] ([facility]) [address] [place] [phone] D Ag Ql (Bld) Positive Normal [facility] Comment on above: Performed By: #### 3 4529-8 #### PATRICIA MCKEONMOTZER L ([id number]) [facility] ([facility]) [address] [place] [address] Verify ABO/Rh Group Test (VE RAB)on 09-27-2024 ABO group Nom (Bld) A [facility] D Ag Ql (Bld) Positive [facility] XR CHEST 1 VIEWon 09-27-2024 XR CHEST 1 VIEW Interpreted By: Cedric Acosta and Omar Mahmoud STUDY: XR CHEST 1 VIEW; 09/27/2024 3:05 pm INDICATION: Signs/Symptoms:Post op cardiac surgery. COMPARISON: Chest x-ray 09/19/2024 8:27 a.m., CT chest 09/15/2024 ACCESSION NUMBER(S): [id number] ORDERING CLINICIAN: ELISABETH ATKINS FINDINGS: AP radiograph of the chest was provided. Interval demonstration of postoperative findings from median sternotomy. Interval placement of an endotracheal tube tip projecting 5.3 cm from the annel. Enteric tube coils within the stomach with tip projecting over the expected location of the gastric fundus. Interval placement of chest tubes. Interval placement of a right IJ central venous catheter with tip projecting over the distal superior vena cava. CARDIOMEDIASTINAL SILHOUETTE: Cardiomediastinal silhouette is stable in size and configuration when allowing for differences in imaging projection. Aortic knob calcification. LUNGS: Hazy opacity within the left lower lung field and linear opacity within the right mid lung field, new as compared to prior. The bilateral costophrenic angles are clear. There is no pneumothorax. ABDOMEN: No remarkable upper abdominal findings. BONES: No acute osseous changes. IMPRESSION: 1. Bibasilar subsegmental atelectasis is new as compared to prior. Component of aspiration or consolidation is not excluded from the interval left lower lung hazy opacity. 2. Interval postoperative changes and medical devices as described above. I personally reviewed the images/study and I agree with the findings as stated by Tomás Mello MD (PGY-2). This study was interpreted at [place], [place]. MACRO: None Signed by: Cedric Coombs 09/27/2024 4:32 PM Dictation workstation: [id number] Normal [facility] Comment on above: Order Comment: On ar rival to ICU XR Chest Single viewon 09-27 [facility] MMODAL [facility] MMODAL [facility] Work Phone: Radiology Study observation (narrative) [facility] Work Phone: XR Chest Single viewOrdered By: Cedric Coombs on 09-27-2024 [facility] Work Phone: Hepatic function 2000 panelo n 09-26-2024 Albumin BCP dye [Mass/Vol] 3.6 g/dL Normal 3.4-5.0 [facility] Comment on above: Performed By: #### 2 4323-8 #### BETH FOSTER ([id number]) [facility] ([facility]) [address] [place] [address] ALP [Catalytic activity/Vol] 334 U/L High 33-136 [facility] Comment on above: Performed By: #### 2 4323-8 #### BETH FOSTER ([id number]) [facility] ([facility]) [address] [place] [address] ALT With P-5'-P [Catalytic activity/Vol] 87 U/L High 10-52 [facility] Comment on above: Result Comment: Ragini ents treated with Sulfasalazine may generate falsely decreased results for ALT. Performed By: #### 2 4323-8 #### BETH FOSTER ([id number]) [facility] ([facility]) [address] [place] [address] 08970 AST With P-5'-P [Catalytic activity/Vol] 39 U/L Normal 9-39 [facility] Comment on above: Performed By: #### 2 4323-8 #### BETH FOSTER ([id number]) [facility] ([facility]) [address] [place] [address] 46158 Bilirubin [Mass/Vol] 0.6 mg/dL Normal 0.0-1.2 [facility] Comment on above: Performed By: #### 2 4323-8 #### BETH FOSTER ([id number]) [facility] ([facility]) [address] [place] [address] 08536 Bilirubin.direct [Mass/Vol] 0.1 mg/dL Normal 0.0-0.3 [facility] Comment on above: Performed By: #### 2 4323-8 #### BETH FOSTER ([id number]) [facility] ([facility]) [address] [place] [address] Protein [Mass/Vol] 5.9 g/dL Low 6.4-8.[address] [facility] Comment on above: Performed By: #### 2 4323-8 #### BTEH FOSTER ([id number]) [facility] ([facility]) [address] [place] [address] US.doppler Carotid arteries - bilateralon 09-20-2024 [place] [address] and Vascular Lab Report [facility] US CAROTID ARTERY DUPLEX BILATERAL Patient Name: CISCO Quinones Physician: [id number] Helene Mclaughlin MD Study Date: 09/20/2024 Ordering [id number] LAURA ERICKSON Physician: MRN/PID: [id number] Technologist: Crista Barreto RVT Technologist 2: Date of /Age: 1 1955 years Gender: M Admission Status: Outpatient Location [facility] Performed: Diagnosis/ICD: Encounter for other preprocedural examination-Z01.818; Other specified symptoms and signs involving the circulatory and respiratory systems-R09.89 Indication: Bruit CPT Codes: 92758 Cerebrovascular Carotid Duplex scan complete CONCLUSIONS: Right Carotid: Findings are consistent with less than 50% stenosis of the right proximal internal carotid artery. Right external carotid artery appears patent with no evidence of stenosis. No evidence of hemodynamically significant stenosis of the right common carotid artery. The right vertebral artery is patent with antegrade flow. No evidence of hemodynamically significant stenosis in the right subclavian artery. Left Carotid: Findings are consistent with less than 50% stenosis of the left proximal internal carotid artery. Left external carotid artery appears patent with no evidence of stenosis. No evidence of hemodynamically significant stenosis of the left common carotid artery. The left vertebral artery is patent with antegrade flow. No evidence of hemodynamically significant stenosis in the left subclavian artery. Imaging & Doppler Findings: Right Plaque Morph: The proximal right internal carotid artery demonstrates calcified plaque. The proximal right external carotid artery demonstrates calcified plaque. The right carotid bulb demonstrates calcified and heterogenous plaque. Left Plaque Morph: The proximal left internal carotid artery demonstrates calcified plaque. The left carotid bulb demonstrates calcified plaque. Right Left PSV EDV PSV EDV 73 cm/s CCA P 79 cm/s 90 cm/s CCA D 78 cm/s 63 cm/s 25 cm/s ICA P 67 cm/s 24 cm/s 55 cm/s 20 cm/s ICA M 65 cm/s 27 cm/s 38 cm/s 14 cm/s ICA D 47 cm/s 20 cm/s 115 cm/s ECA 89 cm/s 28 cm/s 10 cm/s Vertebral 28 cm/s 11 cm/s 121 cm/s Subclavian 124 cm/s Right Left ICA/CCA Ratio 0.7 0.9 [id number] Helene Mclaughlin MD Final Helene Handley MD - 09/20/2024 [place] [address] and Vascular Lab Report [facility] US CAROTID ARTERY DUPLEX BILATERAL Patient Name: CISCO SAINI Reading Physician: [id number] Helene Mclaughlin MD Study Date: 09/20/2024 Ordering [id number] LAURA M GEORGINA Physician: MRN/PID: [id number] Technologist: Crista Barreto T Technologist 2: Date of /Age: 1 1955 years Gender: M Admission Status: Outpatient Location [facility] Performed: Diagnosis/ICD: Encounter for other preprocedural examination-Z01.818; Other specified symptoms and signs involving the circulatory and respiratory systems-R09.89 Indication: Bruit CPT Codes: 56830 Cerebrovascular Carotid Duplex scan complete CONCLUSIONS: Right Carotid: Findings are consistent with less than 50% stenosis of the right proximal internal carotid artery. Right external carotid artery appears patent with no evidence of stenosis. No evidence of hemodynamically significant stenosis of the right common carotid artery. The right vertebral artery is patent with antegrade flow. No evidence of hemodynamically significant stenosis in the right subclavian artery. Left Carotid: Findings are consistent with less than 50% stenosis of the left proximal internal carotid artery. Left external carotid artery appears patent with no evidence of stenosis. No evidence of hemodynamically significant stenosis of the left common carotid artery. The left vertebral artery is patent with antegrade flow. No evidence of hemodynamically significant stenosis in the left subclavian artery. Imaging & Doppler Findings: Right Plaque Morph: The proximal right internal carotid artery demonstrates calcified plaque. The proximal right external carotid artery demonstrates calcified plaque. The right carotid bulb demonstrates calcified and heterogenous plaque. Left Plaque Morph: The proximal left internal carotid artery demonstrates calcified plaque. The left carotid bulb demonstrates calcified plaque. Right Left PSV EDV PSV EDV 73 cm/s CCA P 79 cm/s 90 cm/s CCA D 78 cm/s 63 cm/s 25 cm/s ICA P 67 cm/s 24 cm/s 55 cm/s 20 cm/s ICA M 65 cm/s 27 cm/s 38 cm/s 14 cm/s ICA D 47 cm/s 20 cm/s 115 cm/s ECA 89 cm/s 28 cm/s 10 cm/s Vertebral 28 cm/s 11 cm/s 121 cm/s Subclavian 124 cm/s Right Left ICA/CCA Ratio 0.7 0.9 [id number] Helene Mclaughlin MD Final [facility] Work Phone: Radiology Study observation (narrative) [facility] Work Phone: US.doppler Carotid arteries - bilateralOrdered By: Helene Mclaughlin on 09-20-2024 [facility] Work Phone: VASC US ANKLE BRACHIAL INDEX (NIKKI) WITHOUT EXERCISEon 09-20-2024 VASC US ANKLE BRACHIAL INDEX (NIKKI) WITHOUT EXERCISE [place] [address] and Vascular Lab Report [facility] US ANKLE BRACHIAL INDEX (NIKKI) WITHOUT EXERCISE Patient Name: CISCO Quinones Physician: [id number] Helene Mclaughlin MD Study Date: 09/20/2024 Ordering [id number] LAURA ERICKSON Physician: MRN/PID: [id number] Technologist: Crista Barreto Edmund Technologist 2: Date of /Age: 1 1955 years Gender: M Admission Status: Outpatient Location [facility] Performed: Diagnosis/ICD: Encounter for other preprocedural examination-Z01.818; Peripheral vascular disease, unspecified-I73.9 Indication: Peripheral vascular disease CPT Codes: 10084 Peripheral artery NIKKI Only CONCLUSIONS: Right Lower PVR: No evidence of arterial occlusive disease in the right lower extremity at rest. Right pressures of >220 mmHg suggest no compressibility of vessels and may make absolute Segmental Limb Pressures (DEPARTMENT HELPER) unreliable. Normal digital perfusion noted. Multiphasic flow is noted in the right common femoral artery, right posterior tibial artery and right dorsalis pedis artery. Unable to obtain the right arm brachial pressure due to a recent stroke. Severity of disease called by PVR tracings and Doppler waveforms due to non-compressible vessels. Left Lower PVR: No evidence of arterial occlusive disease in the left lower extremity at rest. Left pressures of >220 mmHg suggest no compressibility of vessels and may make absolute Segmental Limb Pressures (DEPARTMENT HELPER) unreliable. Normal digital perfusion noted. Multiphasic flow is noted in the left common femoral artery, left posterior tibial artery and left dorsalis pedis artery. Severity of disease called by PVR tracings and Doppler waveforms due to non-compressible vessels. Imaging & Doppler Findings: RIGHT Lower PVR Pressures Ratios Right Posterior Tibial (Ankle) 255 mmHg 2.02 Right Dorsalis Pedis (Ankle) 255 mmHg 2.02 Right Digit (Great Toe) 95 mmHg 0.75 LEFT Lower PVR Pressures Ratios Left Posterior Tibial (Ankle) 137 mmHg 1.09 Left Dorsalis Pedis (Ankle) 255 mmHg 2.02 Left Digit (Great Toe) 89 mmHg 0.71 Left Brachial Pressure 126 mmHg [id number] Helene Mclaughlin MD Final [facility] US CAROTID ARTERY DUPLE X BILATERALon 09-20-2024 [facility] US CAROTID ARTERY DUPLEX BILATERAL [place] [address] and Vascular Lab Report [facility] US CAROTID ARTERY DUPLEX BILATERAL Patient Name: CISCO Quinones Physician: [id number] Helene Mclaughlin MD Study Date: 09/20/2024 Ordering [id number] LAURA ERICKSON Physician: MRN/PID: [id number] Technologist: Crista Barreto Edmund Technologist 2: Date of /Age: 1 1955 years Gender: M Admission Status: Outpatient Location [facility] Performed: Diagnosis/ICD: Encounter for other preprocedural examination-Z01.818; Other specified symptoms and signs involving the circulatory and respiratory systems-R09.89 Indication: Bruit CPT Codes: 15857 Cerebrovascular Carotid Duplex scan complete CONCLUSIONS: Right Carotid: Findings are consistent with less than 50% stenosis of the right proximal internal carotid artery. Right external carotid artery appears patent with no evidence of stenosis. No evidence of hemodynamically significant stenosis of the right common carotid artery. The right vertebral artery is patent with antegrade flow. No evidence of hemodynamically significant stenosis in the right subclavian artery. Left Carotid: Findings are consistent with less than 50% stenosis of the left proximal internal carotid artery. Left external carotid artery appears patent with no evidence of stenosis. No evidence of hemodynamically significant stenosis of the left common carotid artery. The left vertebral artery is patent with antegrade flow. No evidence of hemodynamically significant stenosis in the left subclavian artery. Imaging & Doppler Findings: Right Plaque Morph: The proximal right internal carotid artery demonstrates calcified plaque. The proximal right external carotid artery demonstrates calcified plaque. The right carotid bulb demonstrates calcified and heterogenous plaque. Left Plaque Morph: The proximal left internal carotid artery demonstrates calcified plaque. The left carotid bulb demonstrates calcified plaque. Right Left PSV EDV PSV EDV 73 cm/s CCA P 79 cm/s 90 cm/s CCA D 78 cm/s 63 cm/s 25 cm/s ICA P 67 cm/s 24 cm/s 55 cm/s 20 cm/s ICA M 65 cm/s 27 cm/s 38 cm/s 14 cm/s ICA D 47 cm/s 20 cm/s 115 cm/s ECA 89 cm/s 28 cm/s 10 cm/s Vertebral 28 cm/s 11 cm/s 121 cm/s Subclavian 124 cm/s Right Left ICA/CCA Ratio 0.7 0.9 [id number] Helene Mclaughlin MD Final Normal [facility] Bilirubin.glucuronidated+German irubin.albumin boundon 09-19-2024 Bilirubin.direct [Mass/Vol] 0.1 mg/dL Normal 0.0-0.3 [facility] Comment on above: Performed By: #### 1 968-7 #### PATRICIA Groves ([id number]) [facility] ([facility]) [address] [place] [address] Blood type and Indirect anti body screen panel (Bld)on 09-19-2024 ABO group Nom (Bld) A Normal [facility] Comment on above: Performed By: #### 3 4532-2 #### PATRICIA Groves ([id number]) [facility] [address] [place] [address] Blood group antibody screen Ql Negative Normal [facility] Comment on above: Performed By: #### 3 4532-2 #### PATRICIA Groves ([id number]) [facility] ([facility]) [id number] [place] [address] 02376 D Ag Ql (Bld) Positive Normal [facility] Comment on above: Performed By: #### 3 4532-2 #### PATRICIA Groves ([id number]) [facility] ([facility]) [id number] [place] [address] 73159 C reactive proteinon 024 CRP [Mass/Vol] 1.04 mg/dL High <1.00 [facility] Comment on above: Performed By: #### 1 988-5 #### PATRICIA Groves ([id number]) [facility] ([facility]) [address] [place] [address] 30308 CBC W Auto Differential pane l (Bld)on 09-19-2024 Basophils (Bld) [#/Vol] 0.08 x10*3/uL Normal 0.00-0.10 [facility] Comment on above: Performed By: #### 5 7021-8 #### PATRICIA Groves ([id number]) [facility] ([facility]) [id number] [place] [address] 24972 Basophils/100 WBC (Bld) 0.7 % Normal 0.0-2.0 [facility] Comment on above: Performed By: #### 5 7021-8 #### PATRICIA Groves ([id number]) [facility] ([facility]) [id number] [place] [address] 67231 Eosinophils (Bld) [#/Vol] 0.66 x10*3/uL Normal 0.00-0.70 [facility] Comment on above: Performed By: #### 5 7021-8 #### PATRICIA Groves ([id number]) [facility] ([facility]) [address] [place] [address] 18122 Eosinophils/100 WBC (Bld) 6.1 % Normal 0.0-6.0 [facility] Comment on above: Performed By: #### 5 7021-8 #### PATRICIA Groves ([id number]) [facility] ([facility]) [address] [place] [address] 04106 Erythrocyte distribution width (RBC) [Ratio] 12.6 % Normal 11.5-14.5 [facility] Comment on above: Performed By: #### 5 7021-8 #### PATRICIA Groves ([id number]) [facility] ([facility]) [address] [place] [address] 77066 Hematocrit (Bld) [Volume fraction] 46.4 % Normal 41.0-52.0 [facility] Comment on above: Performed By: #### 5 7021-8 #### PATRICIA Groves ([id number]) [facility] ([facility]) [address] [place] [address] 78847 Hemoglobin (Bld) [Mass/Vol] 15.1 g/dL Normal 13.5-17.5 [facility] Comment on above: Performed By: #### 5 7021-8 #### PATRICIA Groves ([id number]) [facility] ([facility]) [address] [place] [address] 16180 Immature granulocytes (Bld) [#/Vol] 0.05 x10*3/uL Normal 0.00-0.70 [facility] Comment on above: Performed By: #### 5 7021-8 #### PATRICIA Groves ([id number]) [facility] ([facility]) [address] [place] [address] 94799 Immature granulocytes/100 WBC (Bld) 0.5 % Normal 0.0-0.9 [facility] Comment on above: Result Comment: Ingris ture Granulocyte Count (IG) includes promyelocytes, myelocytes and metamyelocytes but does not include bands. Percent differential counts (%) should be interpreted in the context of the absolute cell counts (cells/UL). Performed By: #### 5 7021-8 #### PATRICIA Groves ([id number]) [facility] ([facility]) [address] [place] [address] 03691 Lymphocytes (Bld) [#/Vol] 1.38 x10*3/uL Normal 1.20-4.80 [facility] Comment on above: Performed By: #### 5 7021-8 #### PATRICIA Groves ([id number]) [facility] ([facility]) [address] [place] [address] 05173 Lymphocytes/100 WBC (Bld) 12.7 % Normal 13.0-44.0 [facility] Comment on above: Performed By: #### 5 7021-8 #### PATRICIA Groves ([id number]) [facility] ([facility]) [address] [place] [address] 44530 MCH (RBC) [Entitic mass] 30.2 pg Normal 26.0-34.0 [facility] Comment on above: Performed By: #### 5 7021-8 #### PATRICIA Groves ([id number]) [facility] ([facility]) [address] [place] [address] 90521 MCHC (RBC) [Mass/Vol] 32.5 g/dL Normal 32.0-36.0 [facility] Comment on above: Performed By: #### 5 7021-8 #### PATRICIA Groves ([id number]) [facility] ([facility]) [address] [place] [address] 29580 MCV (RBC) [Entitic vol] 93 fL Normal 80-100 [facility] Comment on above: Performed By: #### 5 7021-8 #### PATRICIA Groves ([id number]) [facility] ([facility]) [address] [place] [address] 57590 Monocytes (Bld) [#/Vol] 1.15 x10*3/uL High 0.10-1.00 [facility] Comment on above: Performed By: #### 5 7021-8 #### PATRICIA Groves ([id number]) [facility] ([facility]) [address] [place] [address] 29135 Monocytes/100 WBC (Bld) 10.6 % Normal 2.0-10.0 [facility] Comment on above: Performed By: #### 5 7021-8 #### PATRICIA Groves ([id number]) [facility] ([facility]) [address] [place] [address] Neutrophils (Bld) [#/Vol] 7.51 x10*3/uL Normal 1.20-7.70 [facility] Comment on above: Result Comment: Perc ent differential counts (%) should be interpreted in the context of the absolute cell counts (cells/uL). Performed By: #### 5 7021-8 #### PATRICIA Groves ([id number]) [facility] ([facility]) [id number] [place] [address] 28587 Neutrophils/100 WBC (Bld) 69.4 % Normal 40.0-80.0 [facility] Comment on above: Performed By: #### 5 7021-8 #### PATRICAI Groves ([id number]) [facility] ([facility]) [address] [place] [address] 31575 Nucleated RBC/100 WBC (Bld) [Ratio] 0.0 /100 WBCs Normal 0.0-0.0 [facility] Comment on above: Performed By: #### 5 7021-8 #### PATRICIA Groves ([id number]) [facility] ([facility]) [id number] [place] [address] 58292 Platelets (Bld) [#/Vol] 343 x10*3/uL Normal 150-450 [facility] Comment on above: Performed By: #### 5 7021-8 #### PATRICIA Groves ([id number]) [facility] ([facility]) [address] [place] [address] 47815 RBC (Bld) [#/Vol] 5.00 x10*6/uL Normal 4.50-5.90 [facility] Comment on above: Performed By: #### 5 7021-8 #### PATRICIA Groves ([id number]) [facility] ([facility]) [address] [place] [address] 81726 WBC (Bld) [#/Vol] 10.8 x10*3/uL Normal 4.4-11.3 [facility] Comment on above: Performed By: #### 5 7021-8 #### PATRICIA Groves ([id number]) [facility] ([facility]) [id number] [place] [address] 10752 Comprehensive metabolic 2000 panelon 09-19-2024 Albumin BCP dye [Mass/Vol] 4.1 g/dL Normal 3.4-5.0 [facility] Comment on above: Performed By: #### 2 4323-8 #### PATRICIA Groves ([id number]) [facility] ([facility]) [id number] [place] [address] 73404 ALP [Catalytic activity/Vol] 252 U/L High 33-136 [facility] Comment on above: Performed By: #### 2 4323-8 #### PATRICIA Groves ([id number]) [facility] ([facility]) [id number] [place] [address] 72224 ALT With P-5'-P [Catalytic activity/Vol] 56 U/L High 10-52 [facility] Comment on above: Result Comment: Ragini ents treated with Sulfasalazine may generate falsely decreased results for ALT. Performed By: #### 2 4323-8 #### PATRICIA Groves ([id number]) [facility] ([facility]) [address] [place] [address] 64452 Anion gap [Moles/Vol] 12 mmol/L Normal 10-20 [facility] Comment on above: Performed By: #### 2 4323-8 #### PATRICIA Groves ([id number]) [facility] ([facility]) [id number] [place] [address] 45877 AST With P-5'-P [Catalytic activity/Vol] 24 U/L Normal 9-39 [facility] Comment on above: Performed By: #### 2 4323-8 #### PATRICIA Groves ([id number]) [facility] ([facility]) [id number] [place] [address] 64856 Bilirubin [Mass/Vol] 0.5 mg/dL Normal 0.0-1.2 [facility] Comment on above: Performed By: #### 2 4323-8 #### PATRICIA RYAN L ([id number]) [facility] ([facility]) [address] [place] [address] Calcium [Mass/Vol] 9.7 mg/dL Normal 8.6-10.6 [facility] Comment on above: Performed By: #### 2 4323-8 #### PATRICIA SANTOSER L ([id number]) [facility] ([facility]) [address] [place] [address] Chloride [Moles/Vol] 103 mmol/L Normal 98-107 [facility] Comment on above: Performed By: #### 2 4323-8 #### PATRICIA SANTOSER L ([id number]) [facility] ([facility]) [id number] [place] [address] 38368 CO2 [Moles/Vol] 29 mmol/L Normal 21-[address] [facility] Comment on above: Performed By: #### 2 4323-8 #### PATRICIA RYAN L ([id number]) [facility] ([facility]) [address] [place] [address] Creatinine [Mass/Vol] 1.02 mg/dL Normal 0.50-1.30 [facility] Comment on above: Performed By: #### 2 4323-8 #### PATRICIA MCKEONMOTZER L ([id number]) [facility] ([facility]) [address] [place] [address] Glomerular filtration rate/1.73 sq M.predicted 80 mL/min/1.73m*2 Normal >60 [facility] Comment on above: Result Comment: Calc ulations of estimated GFR are performed using the 2020 CKD-EPI Study Refit equation without the race variable for the IDMS-Traceable creatinine methods. https://jasn.asnjournals.org/content/early//ASN.38264 06049 Performed By: #### 2 4323-8 #### PATRICIA HEATONTZER L ([id number]) [facility] ([facility]) [address] [place] [address] Glucose [Mass/Vol] 60 mg/dL Low 74-99 [facility] Comment on above: Performed By: #### 2 4323-8 #### PATRICIA Groves ([id number]) [facility] ([facility]) [address] [place] [address] 19303 Potassium [Moles/Vol] 4.1 mmol/L Normal 3.5-5.3 [facility] Comment on above: Performed By: #### 2 4323-8 #### PATRICIA Groves ([id number]) [facility] ([facility]) [address] [place] [address] 78108 Protein [Mass/Vol] 7.0 g/dL Normal 6.4-8.2 [facility] Comment on above: Performed By: #### 2 4323-8 #### PATRICIA Groves ([id number]) [facility] ([facility]) [address] [place] [address] 91407 Sodium [Moles/Vol] 140 mmol/L Normal 136-145 [facility] Comment on above: Performed By: #### 2 4323-8 #### PATRICIA Groves ([id number]) [facility] ([facility]) [address] [place] [address] 79543 Urea nitrogen [Mass/Vol] 14 mg/dL Normal 6-23 [facility] Comment on above: Performed By: #### 2 4323-8 #### PATRICIA Groves ([id number]) [facility] ([facility]) [address] [place] [address] 79423 PT and aPTT panel Coag (PPP) on 09-19-2024 aPTT Coag (PPP) [Time] 29 s Normal 27-38 [facility] Comment on above: Order Comment: The A PTT is no longer used for monitoring Unfractionated Heparin Therapy. For monitoring Heparin Therapy, use the Heparin Assay. Performed By: #### 3 4529-8 #### PATRICIA Groves ([id number]) [facility] ([facility]) [address] [place] [address] 33477 INR Coag (PPP) [Relative time] 1.0 Normal 0.9-1.1 [facility] Comment on above: Order Comment: The A PTT is no longer used for monitoring Unfractionated Heparin Therapy. For monitoring Heparin Therapy, use the Heparin Assay. Performed By: #### 3 4529-8 #### PATRICIA Groves ([id number]) [facility] ([facility]) [address] [place] [address] PT Coag (PPP) [Time] 11.1 s Normal 9.8-12.8 [facility] Comment on above: Order Comment: The A PTT is no longer used for monitoring Unfractionated Heparin Therapy. For monitoring Heparin Therapy, use the Heparin Assay. Performed By: #### 3 4529-8 #### PATRICIA Groves ([id number]) [facility] ([facility]) [address] [place] [address] Staphylococcus aureus.methic illin resistant isolateon 09-19-2024 MRSA isol Org specific cx Ql (Nose) Test: Staphylococcus aureus/MRSA colonization, Culture Specimen Source: Nares/Axilla/Groin Specimen Type: Swab Specimen Date: 09/19/2024 0831 Result Date: 09/20/2024 1354 Result Status: Final result Abnormal: No Resulting Lab: [facility] [address] [place] [address] CULTURE No Staphylococcus aureus isolated Normal [facility] Comment on above: Performed By: #### 5 2969-3 #### PATRICIA Groves ([id number]) [facility] ([facility]) [address] [place], [place] [id number] Urinalysis complete W Reflex Culture panel (U)on 09-19-2024 Appearance (U) Ex.Turbid Normal Clear [facility] Comment on above: Performed By: #### 5 8077-9 #### BETH FOSTER ([id number]) [facility] ([facility]) [address] [place] [address] 51212 Bilirubin (U) [Mass/Vol] Negative Normal NEGATIVE [facility] Comment on above: Performed By: #### 5 8077-9 #### BETH FOSTER ([id number]) [facility] ([facility]) [address] [place] [address] 07787 Color (U) Light-[place] Normal Light-Yellow , Yellow, Dark-Yellow [facility] Comment on above: Performed By: #### 5 8077-9 #### BETH FOSTER ([id number]) [facility] ([facility]) [address] [place] [address] 77109 Glucose Auto test strip (U) [Mass/Vol] Normal Normal Normal [facility] Comment on above: Performed By: #### 5 8077-9 #### BETH FOSTER ([id number]) [facility] ([facility]) [address] [place], [place] [address] Ketones (U) [Mass/Vol] Negative Normal NEGATIVE Un [facility] Comment on above: Performed By: #### 5 8077-9 #### BETH FOSTER ([id number]) [facility] ([facility]) [address] [place] [address] 46405 Leukocyte esterase Auto test strip Ql (U) Negative Normal NEGATIVE [facility] Comment on above: Performed By: #### 5 8077-9 #### BETH FOSTER ([id number]) [facility] ([facility]) [address] [place] [address] 98745 Nitrite Auto test strip Ql (U) Negative Normal NEGATIVE [facility] Comment on above: Performed By: #### 5 8077-9 #### BETH FOSTER ([id number]) [facility] ([facility]) [address] [place] [address] 10881 pH (U) 5.5 [pH] Normal 5.0, 5.5, 6.0, 6.5, 7.0, 7.5, 8.0 [facility] Comment on above: Performed By: #### 5 8077-9 #### BETH FOSTER ([id number]) [facility] ([facility]) [address] [place] [address] 47268 Protein (U) [Mass/Vol] Negative Normal NEGAT KELLY, 10 (TRACE), 20 (TRACE) [facility] Comment on above: Performed By: #### 5 8077-9 #### BETH FOSTER ([id number]) [facility] ([facility]) [address] [place] [address] RBC (U) [#/Vol] Negative Normal NEGATIVE [facility] Comment on above: Performed By: #### 5 8077-9 #### BETH FOSTER ([id number]) [facility] ([facility]) [address] [place] [address] 98568 Specific gravity (U) [Rel density] 1.021 Normal 1.005-1.035 [facility] Comment on above: Performed By: #### 5 8077-9 #### BETH FOSTER ([id number]) [facility] ([facility]) [address] [place] [address] 99701 Urobilinogen (U) [Mass/Vol] Normal Normal Normal [facility] Comment on above: Performed By: #### 5 8077-9 #### BETH FOSTER ([id number]) [facility] ([facility]) [address] [place] [address] 29543 XR CHEST 2 VIEWSon XR CHEST 2 VIEWS Interpreted By: Sonny Edward and Omar Mahmoud STUDY: XR CHEST 2 VIEWS; 09/19/2024 9:19 am INDICATION: Signs/Symptoms:pre-op. ,I25.10 Atherosclerotic heart disease of [place] coronary artery without angina pectoris COMPARISON: None. ACCESSION NUMBER(S): [id number] ORDERING CLINICIAN: ELISABETH ATKINS FINDINGS: PA and lateral radiographs of the chest were provided. CARDIOMEDIASTINAL SILHOUETTE: Cardiomediastinal silhouette is normal in size and configuration. LUNGS: The lungs are mildly hypoexpanded with bronchovascular crowding. The costophrenic angles are clear. There is no pneumothorax. There is no focal consolidation. ABDOMEN: No remarkable upper abdominal findings. BONES: No acute osseous changes. IMPRESSION: No focal airspace disease with minimal bibasilar atelectasis. Mild prominence of the interstitium but no focal airspace disease. I personally reviewed the images/study and I agree with the findings as stated by Tomás Mello MD (PGY-2). This study was interpreted at [facility], [place], [place]. MACRO: None Signed by: Sonny Edward 09/21/2024 10:25 AM Dictation workstation: [id number] Normal [facility] CT CHEST ABDOMEN PELVIS WO C ONTRASTon 09-15-2024 CT CHEST ABDOMEN PELVIS WO CONTRAST Interpreted By: Cameron Pond and Jiang Sirui STUDY: CT CHEST ABDOMEN PELVIS WO CONTRAST; 09/15/2024 11:51 am INDICATION: Signs/Symptoms:pre-op. ,I25.10 Atherosclerotic heart disease of [place] coronary artery without angina pectoris COMPARISON: None. ACCESSION NUMBER(S): [id number] ORDERING CLINICIAN: ELISABETH ATKINS TECHNIQUE: CT of the chest, abdomen and pelvis was performed. Contiguous axial images were obtained at 3 mm slice thickness through the chest, abdomen and pelvis. Coronal and sagittal reconstructions at 3 mm slice thickness were performed. No intravenous or oral contrast agents were administered. FINDINGS: Please note that the study is limited without intravenous contrast. CHEST: LUNG/PLEURA/LARGE AIRWAYS: The trachea and central airways are patent. No endobronchial lesion. No consolidation, pleural effusion, or pneumothorax. There is a 0.4 cm pulmonary nodule of the right upper lobe (series 4, image 62) and a 0.4 cm pulmonary nodule of the left apex (series 4, image 27). Bilateral lower lobe subpleural reticulation and mild bronchial wall thickening. VESSELS: Aorta and pulmonary arteries are normal caliber. Mild atherosclerotic calcification of the thoracic aorta is noted. Severe coronary artery calcifications are noted. HEART: The heart is normal in size. No pericardial effusion. Aortic valvular and mitral annular calcifications are noted. MEDIASTINUM AND ASAF: Multiple prominent and enlarged mediastinal lymph nodes are noted, for example a 1.6 cm subcarinal lymph node (series 3, image 45), a 0.8 cm right paratracheal node (image 33), and a 0.7 cm upper esophageal node (image 24). These are nonspecific and likely reactive in etiology. The esophagus is unremarkable. CHEST WALL AND LOWER NECK: The soft tissues of the chest wall are unremarkable. The visualized thyroid gland is unremarkable. ABDOMEN: LIVER: The liver is normal in size without evidence of focal liver lesions. BILE DUCTS: The bile ducts are not dilated. GALLBLADDER: The gallbladder is not distended and without calcified stones. PANCREAS: Unremarkable. SPLEEN: Unremarkable. ADRENAL GLANDS: Unremarkable. KIDNEYS AND URETERS: Kidneys are similar in size and appearance. No hydroureteronephrosis or nephroureterolithiasis. PELVIS: BLADDER: The urinary bladder appears within normal limits. REPRODUCTIVE ORGANS: The prostate is not enlarged. BOWEL: The stomach is unremarkable. The small and large bowel demonstrate no abnormal bowel thickening or dilatation. Scattered colonic diverticulosis without evidence of acute diverticulitis. The appendix is unremarkable. VESSELS: Xphz-mg-dvfqfctd atherosclerotic calcification of the abdominal aorta without AAA. IVC is unremarkable. PERITONEUM/RETROPERITON EUM/LYMPH NODES: No ascites or free air, no fluid collection. No abdominopelvic lymphadenopathy is present. ABDOMINAL WALL: A small fat containing umbilical hernia is noted. BONES: No suspicious osseous lesions are present. Degenerative discogenic disease is noted in the lower thoracic and lumbar spine. IMPRESSION: 1. No acute process in the chest, abdomen or pelvis. 2. Multiple prominent and enlarged mediastinal lymph nodes as described above which are nonspecific and likely reactive in etiology, likely secondary to chronic lung parenchymal changes including subpleural reticulation and mild bronchial wall thickening predominantly involving the lower lobes. 3. Severe coronary artery calcifications. Aortic valvular and mitral annular calcifications. 4. Additional chronic findings as described above. I personally reviewed the image(s) / study and I agree with the findings as stated by Lor Garcia MD. This study was interpreted at [facility], [place], [place]. MACRO: None Signed by: Cameron Pond 09/16/2024 6:58 PM Dictation workstation: [id number] [facility] US LOWER EXTREMITY VEIN MAPPING BILATERALon 09-15-2024 [facility] US LOWER EXTREMITY [place] [address] ext-[id number], Vascular Lab Report [facility] US LOWER EXTREMITY VEIN MAPPING BILATERAL Patient Name: CISCO Quinones Physician: [id number] Shen MD Study Date: 09/15/2024 Ordering Provider: [id number] ELISABETH ATKINS MRN/PID: [id number] Fellow: Technologist: John Winston RVT Date of /Age: 1 1955 / 68 years Technologist 2: Gender: M Admission Status: Outpatient Location [facility] Performed: Diagnosis/ICD: Encounter for preprocedural cardiovascular examination-Z01.810 CPT Codes: 20111 Vein mapping complete CONCLUSIONS: Right Lower Venous: The right common femoral vein demonstrates normal spontaneous and respirophasic flow. Left Lower Venous: The left common femoral vein demonstrates normal spontaneous and respirophasic flow. Right Lower Vein Mapping: Right lower extremity vein: Negative for superficial johana thrombus. 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 Left Lower Vein Mapping: The left great saphenous vein appears widely patent with no evidence of thrombosis or fibrosis. Imaging & Doppler Findings: Right Compress Thrombus Diam SFJ Yes None 5.5 mm Prox Thigh GSV Yes None 4.0 mm Mid Thigh GSV Yes None 3.7 mm Knee GSV Yes None 3.3 mm Prox Calf GSV Yes Fibrotic 3.0 mm Mid Calf GSV Yes None 3.7 mm Dist Calf GSV Yes None 3.7 mm Left Compress Thrombus Diam SFJ Yes None 6.0 mm Prox Thigh GSV Yes None 4.0 mm Mid Thigh GSV Yes None 3.2 mm Knee GSV Yes None 3.5 mm Prox Calf GSV Yes None 2.2 mm Mid Calf GSV Yes None 2.4 mm Dist Calf GSV Yes None 2.3 mm Right Compressible Thrombus Flow CFV Yes None Spontaneous/Phasic Left Compress Thrombus Flow CFV Yes None Spontaneous/Phasic [id number] Rona Shen MD Final [facility] Vascular US lower extremity vein mapping bilateralon 09-15-2024 [place] [address] ext-2528, Vascular Lab Report [facility] US LOWER EXTREMITY VEIN MAPPING BILATERAL Patient Name: CISCO Quinones Physician: [id number] Shen MD Study Date: 09/15/2024 Ordering Provider: [id number] ELISABETH ATKINS MRN/PID: [id number] Fellow: Technologist: John Winston RVT Date of /Age: 1 1955 / 68 years Technologist 2: Gender: M Admission Status: Outpatient Location [facility] Performed: Diagnosis/ICD: Encounter for preprocedural cardiovascular examination-Z01.810 CPT Codes: 00578 Vein mapping complete CONCLUSIONS: Right Lower Venous: The right common femoral vein demonstrates normal spontaneous and respirophasic flow. Left Lower Venous: The left common femoral vein demonstrates normal spontaneous and respirophasic flow. Right Lower Vein Mapping: Right lower extremity vein: Negative for superficial johana thrombus. 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 Left Lower Vein Mapping: The left great saphenous vein appears widely patent with no evidence of thrombosis or fibrosis. Imaging & Doppler Findings: Right Compress Thrombus Diam SFJ Yes None 5.5 mm Prox Thigh GSV Yes None 4.0 mm Mid Thigh GSV Yes None 3.7 mm Knee GSV Yes None 3.3 mm Prox Calf GSV Yes Fibrotic 3.0 mm Mid Calf GSV Yes None 3.7 mm Dist Calf GSV Yes None 3.7 mm Left Compress Thrombus Diam SFJ Yes None 6.0 mm Prox Thigh GSV Yes None 4.0 mm Mid Thigh GSV Yes None 3.2 mm Knee GSV Yes None 3.5 mm Prox Calf GSV Yes None 2.2 mm Mid Calf GSV Yes None 2.4 mm Dist Calf GSV Yes None 2.3 mm Right Compressible Thrombus Flow CFV Yes None Spontaneous/Phasic Left Compress Thrombus Flow CFV Yes None Spontaneous/Phasic [id number] Rona Shen MD Final Rona Haro MD , MS - 09/15/2024 [place] [address] ext-2528, [facility]ascular Lab Report [facility] LOWER EXTREMITY VEIN MAPPING BILATERAL Patient Name: CISCO Quinones Physician: [id number] Shen MD Study Date: 09/15/2024 Ordering Provider: [id number] ELISABETH ATKINS MRN/PID: [id number] Fellow: Technologist: John Winston RVT Date of /Age: 1 1955 / 68 years Technologist 2: Gender: M Admission Status: Outpatient Location [facility] Performed: Diagnosis/ICD: Encounter for preprocedural cardiovascular examination-Z01.810 CPT Codes: 63632 Vein mapping complete CONCLUSIONS: Right Lower Venous: The right common femoral vein demonstrates normal spontaneous and respirophasic flow. Left Lower Venous: The left common femoral vein demonstrates normal spontaneous and respirophasic flow. Right Lower Vein Mapping: Right lower extremity vein: Negative for superficial johana thrombus. 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 Left Lower Vein Mapping: The left great saphenous vein appears widely patent with no evidence of thrombosis or fibrosis. Imaging & Doppler Findings: Right Compress Thrombus Diam SFJ Yes None 5.5 mm Prox Thigh GSV Yes None 4.0 mm Mid Thigh GSV Yes None 3.7 mm Knee GSV Yes None 3.3 mm Prox Calf GSV Yes Fibrotic 3.0 mm Mid Calf GSV Yes None 3.7 mm Dist Calf GSV Yes None 3.7 mm Left Compress Thrombus Diam SFJ Yes None 6.0 mm Prox Thigh GSV Yes None 4.0 mm Mid Thigh GSV Yes None 3.2 mm Knee GSV Yes None 3.5 mm Prox Calf GSV Yes None 2.2 mm Mid Calf GSV Yes None 2.4 mm Dist Calf GSV Yes None 2.3 mm Right Compressible Thrombus Flow CFV Yes None Spontaneous/Phasic Left Compress Thrombus Flow CFV Yes None Spontaneous/Phasic [id number] Rona Shen MD Final [facility] Work Phone: Radiology Study observation (narrative) [facility] Work Phone: Vascular US lower extremity vein mapping bilateralOrdered By: Rona Shen on 09-15-2024 [facility] Work Phone: Hepatic function 2000 panelo n 08-29-2024 Albumin BCP dye [Mass/Vol] 3.6 g/dL Normal 3.4-5.0 [facility] Comment on above: Performed By: #### 2 4323-8 #### BETH FOSTER ([id number]) [facility] ([facility]) [address] [place] [address] ALP [Catalytic activity/Vol] 299 U/L High 33-136 [facility] Comment on above: Performed By: #### 2 432-8 #### BETH FOSTER ([id number]) [facility] ([facility]) [address] [place] [address] ALT With P-5'-P [Catalytic activity/Vol] 112 U/L High 10-52 [facility] Comment on above: Result Comment: Ragini ents treated with Sulfasalazine may generate falsely decreased results for ALT. Performed By: #### 2 4322-8 #### BETH FOSTER ([id number]) [facility] ([facility]) [address] [place] [address] AST With P-5'-P [Catalytic activity/Vol] 40 U/L High 9-39 [facility] Comment on above: Performed By: #### 2 4322-8 #### BETH FOSTER ([id number]) [facility] ([facility]) [address] [place] [address] Bilirubin [Mass/Vol] 0.5 mg/dL Normal 0.0-1.2 [facility] Comment on above: Performed By: #### 2 432-8 #### BETH FOSTER ([id number]) [facility] ([facility]) [facility] [place] [address] Bilirubin.direct [Mass/Vol] 0.1 mg/dL Normal 0.0-0.3 [facility] Comment on above: Performed By: #### 2 432-8 #### BETH FOSTER ([id number]) [facility] ([facility]) [address] [place] [address] Protein [Mass/Vol] 5.7 g/dL Low 6.4-8.[address] [facility] Comment on above: Performed By: #### 2 4322-8 #### BETH FOSTER ([id number]) [facility] ([facility]) [address] [place] [address] CBC panel Auto (Bld)on 08-15 Erythrocyte distribution width (RBC) [Ratio] 12.3 % Normal 11.5-14.5 [facility] Comment on above: Performed By: #### 2 4323-8 #### BETH FOSTER ([id number]) [facility] ([facility]) [address] [place] [address] Hematocrit (Bld) [Volume fraction] 43.9 % Normal 41.0-52.0 [facility] Comment on above: Performed By: #### 2 4323-8 #### BETH FOSTER ([id number]) [facility] ([facility]) [address] [place] [address] Hemoglobin (Bld) [Mass/Vol] 14.3 g/dL Normal 13.5-17.5 [facility] Comment on above: Performed By: #### 2 4323-8 #### BETH FOSTER ([id number]) [facility] ([facility]) [address] [place] [address] MCH (RBC) [Entitic mass] 30.8 pg Normal 26.0-34.0 [facility] Comment on above: Performed By: #### 2 4323-8 #### BETH FOSTER ([id number]) [facility] ([facility]) [address] [place] [address] MCHC (RBC) [Mass/Vol] 32.6 g/dL Normal 32.0-36.0 [facility] Comment on above: Performed By: #### 2 4323-8 #### BETH FOSTER ([id number]) [facility] ([facility]) [address] [place] [address] MCV (RBC) [Entitic vol] 95 fL Normal 80-100 [facility] Comment on above: Performed By: #### 2 4323-8 #### BETH FOSTER ([id number]) [facility] ([facility]) [address] [place] [address] Nucleated RBC/100 WBC (Bld) [Ratio] 0.0 /100 WBCs Normal 0.0-0.0 [facility] Comment on above: Performed By: #### 2 4323-8 #### BETH FOSTER ([id number]) [facility] ([facility]) [address] [place] [address] Platelets (Bld) [#/Vol] 247 x10*3/uL Normal 150-450 [facility] Comment on above: Performed By: #### 2 3-8 #### BETH FOSTER ([id number]) [facility] ([facility]) [address] [place] [address] RBC (Bld) [#/Vol] 4.64 x10*6/uL Normal 4.50-5.90 [facility] Comment on above: Performed By: #### 2 432-8 #### BETH FOSTER ([id number]) [facility] ([facility]) [address] [place], [place] [address] WBC (Bld) [#/Vol] 5.7 x10*3/uL Normal 4.4-11.3 [facility] Comment on above: Performed By: #### 2 4322-8 #### BETH FOSTER ([id number]) [facility] ([facility]) [address] [place], [place] [address] Comprehensive metabolic 2000 panelon 08-15-2024 Albumin BCP dye [Mass/Vol] 3.7 g/dL Normal 3.4-5.0 [facility] Comment on above: Performed By: #### 2 4323-8 #### BETH FOSTER ([id number]) [facility] ([facility]) [address] [place] [address] ALP [Catalytic activity/Vol] 319 U/L High 33-136 [facility] Comment on above: Performed By: #### 2 4323-8 #### BETH FOSTER ([id number]) [facility] ([facility]) [address] [place] [address] ALT With P-5'-P [Catalytic activity/Vol] 175 U/L High 10-52 [facility] Comment on above: Result Comment: Ragini ents treated with Sulfasalazine may generate falsely decreased results for ALT. Performed By: #### 2 4323-8 #### BETH FOSTER ([id number]) [facility] ([facility]) [address] [place] [address] Anion gap [Moles/Vol] 12 mmol/L Normal 10-20 [facility] Comment on above: Performed By: #### 2 4323-8 #### BETH FOSTER ([id number]) [facility] ([facility]) [address] [place] [address] AST With P-5'-P [Catalytic activity/Vol] 58 U/L High 9-39 [facility] Comment on above: Performed By: #### 2 432-8 #### BETH FOSTER ([id number]) [facility] ([facility]) [address] [place] [address] Bilirubin [Mass/Vol] 0.5 mg/dL Normal 0.0-1.2 [facility] Comment on above: Performed By: #### 2 432-8 #### BETH FOSTER ([id number]) [facility] ([facility]) [facility] [place] [address] Calcium [Mass/Vol] 9.1 mg/dL Normal 8.6-10.[address] [facility] Comment on above: Performed By: #### 2 4323-8 #### BETH FOSTER ([id number]) [facility] ([facility]) [address] [place] [address] Chloride [Moles/Vol] 106 mmol/L Normal 98-107 [facility] Comment on above: Performed By: #### 2 4323-8 #### BETH FOSTER ([id number]) [facility] ([facility]) [address] [place] [address] CO2 [Moles/Vol] 26 mmol/L Normal 21-32 [facility] Comment on above: Performed By: #### 2 4323-8 #### BETH FOSTER ([id number]) [facility] ([facility]) [address] [place] [address] Creatinine [Mass/Vol] 0.95 mg/dL Normal 0.50-1.30 [facility] Comment on above: Performed By: #### 2 4323-8 #### BETH FOSTER ([id number]) [facility] ([facility]) [address] [place] [address] Glomerular filtration rate/1.73 sq M.predicted 87 mL/min/1.73m*2 Normal >60 [facility] Comment on above: Result Comment: Calc ulations of estimated GFR are performed using the 2020 CKD-EPI Study Refit equation without the race variable for the IDMS-Traceable creatinine methods. https://jasn.asnjournals.org/content/early//ASN.28123 23019 Performed By: #### 2 4323-8 #### BETH FOSTER ([id number]) [facility] ([facility]) [address] [place] [address] Glucose [Mass/Vol] 90 mg/dL Normal 74-[address] [facility] Comment on above: Performed By: #### 2 4323-8 #### BETH FOSTER ([id number]) [facility] ([facility]) [address] [place] [address] Potassium [Moles/Vol] 4.6 mmol/L Normal 3.5-5.3 [facility] Comment on above: Performed By: #### 2 4323-8 #### BETH FOSTER ([id number]) [facility] ([facility]) [address] [place] [address] Protein [Mass/Vol] 5.7 g/dL Low 6.4-8.[address] [facility] Comment on above: Performed By: #### 2 4323-8 #### BETH FOSTER ([id number]) [facility] ([facility]) [address] [place] [address] Sodium [Moles/Vol] 139 mmol/L Normal 136-[address] [facility] Comment on above: Performed By: #### 2 4323-8 #### BETH FOSTER ([id number]) [facility] ([facility]) [facility] [place] [address] Urea nitrogen [Mass/Vol] 13 mg/dL Normal 6-23 [facility] Comment on above: Performed By: #### 2 4323-8 #### BETH FOSTER ([id number]) [facility] ([facility]) [address] [place] [address] Urateon 08-15-2024 Urate [Mass/Vol] 5.4 mg/dL Normal 4.0-7.5 [facility] Comment on above: Result Comment: Manasa puncture immediately after or during the administration of Metamizole may lead to falsely low results. Testing should be performed immediately prior to Metamizole dosing. Performed By: #### 2 4323-8 #### BETH FOSTER ([id number]) [facility] ([facility]) [address] [place], [place] [address] COVID 19 AG RAPID ([facility])on 08-04-2024 SARS-CoV-2 (COVID-19) RNA SPEEDY+probe Ql (Unsp spec) *Negative results from patients with symptom onset beyond five days should be treated as presumptive and confirmed by a molecular assay if clinically necessary. Negative results should not be used as the sole basis for treatment or for patient management. SARS-CoV-2 Ag Resp Ql IA.rapid *Positive results do not differentiate between SARS-CoV and SARS-CoV-2. If differentiation of the specific SARS virus is desired an additional sample and an additional order is required. SARS-CoV-2 Ag Resp Ql IA.rapid * This test has not been FDA cleared or approved; the test has been authorized by FDA under an Emergency Use Authorization (EAU) for use by laboratories certified under CLIA that meet the requirements to perform moderate, high, or waived complexity tests. SARS-CoV-2 Ag Resp Ql IA.rapid Normal Reference Range: Negative SARS-CoV-2 (COVID 19) Negative RAPID METHOD BinaxNow COVID19 Ag Card Normal [facility] Comment on above: Performed By: #### M 100.505 ####[facility] [address] [place], [address] Basic Metabolic Profile (BMP )on 07-29-2024 BUN/CRE 14.5 RATIO Normal 10-20 [facility] Comment on above: Performed By: #### L 100.0500, L500.2500 ####[facility] [address] [place], [address] CA,Total 9.0 mg/dL Normal 8.5-10.1 [facility] Comment on above: Performed By: #### L 100.0500, L500.2500 ####[facility] [address] [place], [address] Chloride [Moles/Vol] 108 mmol/L High 98-107 [facility] Comment on above: Performed By: #### L 100.0500, L500.2500 ####[facility] [address] [place], [address] CO2 [Moles/Vol] 26.0 mmol/L Normal 21.0-32.0 [facility] Comment on above: Performed By: #### L 100.0500, L500.2500 ####[facility] [address] [place], [address] Creatinine [Mass/Vol] 1.10 mg/dL Normal 0.70-1.30 [facility] Comment on above: Result Comment: The validity of the calculated GFR GFRAA in patients over 70 years has not been determined. Clinical correlation is essential. Performed By: #### L 100.0500, L500.2500 ####[facility] [address] [place], [address] ECRCL 62.45 ml/min Normal [facility] Comment on above: Performed By: #### L 100.0500, L500.2500 ####[facility] [address] [place], [address] EST GFR - AA 85 mL/min Normal >60 [facility] Comment on above: Result Comment: Afri can [place] GFR Calc Performed By: #### L 100.0500, L500.2500 ####[facility] [address] [place], [address] GAP 3 Low 5-15 [facility] Comment on above: Performed By: #### L 100.0500, L500.2500 ####[facility] [address] [place], [address] GFR/1.73 sq M.predicted among non-blacks MDRD (S/P/Bld) [Vol rate/Area] 70 mL/min/{1.73_m2} Normal >60 [facility] Comment on above: Result Comment: Non- GFR Calc Performed By: #### L 100.0500, L500.2500 ####[facility] [address] [place], [address] Glucose [Mass/Vol] 95 mg/dL Normal 74-106 [facility] Comment on above: Performed By: #### L 100.0500, L500.2500 ####[facility] [address] [place], [address] Potassium [Moles/Vol] 4.3 mmol/L Normal 3.5-5.1 [facility] Comment on above: Performed By: #### L 100.0500, L500.2500 ####[facility] [address] [place], [address] Sodium [Moles/Vol] 137 mmol/L Normal 136-145 [facility] Comment on above: Performed By: #### L 100.0500, L500.2500 ####[facility] [address] [place], [address] Urea nitrogen [Mass/Vol] 16 mg/dL Normal 7-18 [facility] Comment on above: Performed By: #### L 100.0500, L500.2500 ####[facility] [address] [place], [address] CBC-Complete Blood Cnt No Di ffon 07-29-2024 Erythrocyte distribution width (RBC) [Ratio] 12.4 % Normal 11.6-14.6 [facility] Comment on above: Performed By: #### L 100.0500, L500.2500 #### [facility] [address] [place], [address] Hematocrit (Bld) [Volume fraction] 40.1 % Normal 40-54 [facility] Comment on above: Performed By: #### L 100.0500, L500.2500 #### [facility] [address] [place], [address] Hemoglobin (Bld) [Mass/Vol] 13.1 g/dL Normal 13.0-16.5 [facility] Comment on above: Performed By: #### L 100.0500, L500.2500 #### [facility] [address] [place], [address] MCH (RBC) [Entitic mass] 30.9 pg Normal 27.0-32.0 [facility] Comment on above: Performed By: #### L 100.0500, L500.2500 #### [facility] [address] [place], [address] MCHC (RBC) [Mass/Vol] 32.7 g/dL Normal 32-36 [facility] Comment on above: Performed By: #### L 100.0500, L500.2500 #### [facility] [address] [place], [address] MCV (RBC) [Entitic vol] 94.6 fL High 80-94 [facility] Comment on above: Performed By: #### L 100.0500, L500.2500 #### [facility] [address] [place], [address] Platelet mean volume (Bld) [Entitic vol] 10.3 fL Normal 6.2-12.0 [facility] Comment on above: Performed By: #### L 100.0500, L500.2500 #### [facility] [address] [place], [address] Platelets (Bld) [#/Vol] 247 10*3/uL Normal 150-450 [facility] Comment on above: Performed By: #### L 100.0500, L500.2500 #### [facility] [address] [place], [address] RBC (Bld) [#/Vol] 4.24 10*6/uL Low 4.6-6.2 [facility] Comment on above: Performed By: #### L 100.0500, L500.2500 #### [facility] [address] [place], [address] RDW SD 43.5 fl Normal 35.1-43.9 [facility] Comment on above: Performed By: #### L 100.0500, L500.2500 #### [facility] [address] [place], [address] WBC (Bld) [#/Vol] 7.2 10*3/uL Normal 4.4-11.0 [facility] Comment on above: Performed By: #### L 100.0500, L500.2500 #### [facility] [address] [place], [address] Basic Metabolic Profile (BMP )on 07-26-2024 BUN/CRE 17.9 RATIO Normal 10-20 [facility] Comment on above: Performed By: #### L 500.2500 ####[facility] [address] [place], [address] CA,Total 9.7 mg/dL Normal 8.5-10.1 [facility] Comment on above: Performed By: #### L 500.2500 ####[facility] [facility] [address] [place], [address] Chloride [Moles/Vol] 104 mmol/L Normal 98-107 [facility] Comment on above: Performed By: #### L 500.2500 ####[facility] [address] [place], [address] CO2 [Moles/Vol] 29.0 mmol/L Normal 21.0-32.0 [facility] Comment on above: Performed By: #### L 500.2500 ####[facility] [address] [place], [address] Creatinine [Mass/Vol] 1.17 mg/dL Normal 0.70-1.30 [facility] Comment on above: Result Comment: The validity of the calculated GFR GFRAA in patients over 70 years has not been determined. Clinical correlation is essential. Performed By: #### L 500.2500 ####[facility] [address] [place], [address] ECRCL 58.27 ml/min Normal [facility] Comment on above: Performed By: #### L 500.2500 ####[facility] [address] [place], [address] EST GFR - AA 79 mL/min Normal >60 [facility] Comment on above: Result Comment: Afri can [place] GFR Calc Performed By: #### L 500.2500 ####[facility] [address] [place], [address] GAP 4 Low 5-15 [facility] Comment on above: Performed By: #### L 500.2500 ####[facility] [address] [place], [address] GFR/1.73 sq M.predicted among non-blacks MDRD (S/P/Bld) [Vol rate/Area] 66 mL/min/{1.73_m2} Normal >60 [facility] Comment on above: Result Comment: Non- GFR Calc Performed By: #### L 500.2500 ####[facility] [address] [place], [address] Glucose [Mass/Vol] 97 mg/dL Normal 74-106 [facility] Comment on above: Performed By: #### L 500.2500 ####[facility] [address] [place], [address] Potassium [Moles/Vol] 4.8 mmol/L Normal 3.5-5.1 [facility] Comment on above: Performed By: #### L 500.2500 ####[facility] [address] [place], [address] Sodium [Moles/Vol] 137 mmol/L Normal 136-145 [facility] Comment on above: Performed By: #### L 500.2500 ####[facility] [address] [place], [address] Urea nitrogen [Mass/Vol] 21 mg/dL High 7-18 [facility] Comment on above: Performed By: #### L 500.2500 ####[facility] [address] [place], [address] 12 Lead EKGon 07-25-2024 12 Lead EKG [facility] [address] [place] [address] 12 Lead EKG 07/25/24 1836 MR#: [id number] Acct: [id number] Name: CISCO SAINI Rep #: [id number] : 1955 68 From: Thony Hernandes MD Attending Dr: Dr. Lorraine Meza DO Sta tus: ADM IN Ordering Dr: Lorraine Meza DO Date: 07/25/24 Location: RU Sex: M C Admitted: 07/13/24 Test Reason : CAD/ASHD Blood Pressure : / mmHG Vent. Rate : 069 BPM Atrial Rate : 069 BPM P-R Int : 152 ms QRS Dur : 090 ms QT Int : 390 ms P-R-T Axes : 054 017 029 degrees QTc Int : 417 ms Normal sinus rhythm Normal ECG No previous ECGs available Confirmed by THONY HERNANDES MD ([id number]), newspaper editor ELI LU ([id number]) on 07/26/2024 1:13:11 PM Referred By: CARRILLO Confirmed By:THONY HERNANDES MD 07/26/24 1313 Date Thony Hernandes MD CC: Dr. Lorraine Meza, DO; Dr. Debbie Barba MD Signed Normal [facility] Comprehensive Metabolic Prof ilon 07-18-2024 Albumin [Mass/Vol] 3.3 g/dL Normal 3.2-5.0 [facility] Comment on above: Performed By: #### L 500.4050, L100.0600 #### [facility] [address] [place], [address] Albumin/Globulin [Mass ratio] 0.8 {ratio} Low 0.9-2.4 [facility] Comment on above: Performed By: #### L 500.4050, L100.0600 #### [facility] [address] [place], [address] ALK P 233 U/L High 45-117 [facility] Comment on above: Performed By: #### L 500.4050, L100.0600 #### [facility] [address] [place], [address] ALT [Catalytic activity/Vol] 98 U/L High 16-61 [facility] Comment on above: Performed By: #### L 500.4050, L100.0600 #### [facility] [address] [place], [address] AST [Catalytic activity/Vol] 37 U/L Normal 15-37 [facility] Comment on above: Performed By: #### L 500.4050, L100.0600 #### [facility] [address] [place], [address] Bilirubin [Mass/Vol] 0.60 mg/dL Normal 0.20-1.00 [facility] Comment on above: Result Comment: For patients on eltrombopag therapy, use of Dimension Brawley TBIL is not recommended. Performed By: #### L 500.4050, L100.0600 #### [facility] [address] [place], [address] BUN/CRE 15.9 RATIO Normal 10-20 [facility] Comment on above: Performed By: #### L 500.4050, L100.0600 #### [facility] [address] [place], [address] CA,Total 10.1 mg/dL Normal 8.5-10.1 [facility] Comment on above: Performed By: #### L 500.4050, L100.0600 #### [facility] [address] [place], [address] Chloride [Moles/Vol] 103 mmol/L Normal 98-107 [facility] Comment on above: Performed By: #### L 500.4050, L100.0600 #### [facility] [address] [place], [address] CO2 [Moles/Vol] 23.0 mmol/L Normal 21.0-32.0 [facility] Comment on above: Performed By: #### L 500.4050, L100.0600 #### [facility] [address] [place], [address] Creatinine [Mass/Vol] 1.13 mg/dL Normal 0.70-1.30 [facility] Comment on above: Result Comment: The validity of the calculated GFR GFRAA in patients over 70 years has not been determined. Clinical correlation is essential. Performed By: #### L 500.4050, L100.0600 #### [facility] [address] [place], [address] ECRCL 60.72 ml/min Normal [facility] Comment on above: Performed By: #### L 500.4050, L100.0600 #### [facility] [address] [place], [address] EST GFR - AA 83 mL/min Normal >60 [facility] Comment on above: Result Comment: Afri can [place] GFR Calc Performed By: #### L 500.4050, L100.0600 #### [facility] [address] [place], [address] GAP 10 Normal 5-15 [facility] Comment on above: Performed By: #### L 500.4050, L100.0600 #### [facility] [address] [place], [address] GFR/1.73 sq M.predicted among non-blacks MDRD (S/P/Bld) [Vol rate/Area] 68 mL/min/{1.73_m2} Normal >60 [facility] Comment on above: Result Comment: Non- GFR Calc Performed By: #### L 500.4050, L100.0600 #### [facility] [address] [place], [address] Globulin (S) [Mass/Vol] 4.0 g/dL Normal 2.2-4.2 [facility] Comment on above: Performed By: #### L 500.4050, L100.0600 #### [facility] [address] [place], [address] Glucose [Mass/Vol] 121 mg/dL High 74-106 [facility] Comment on above: Result Comment: Fast ing Glucose result from 100 to 125 mg/dL suggests IMPAIRED HOMEOSTASIS per A.D.A. criteria. Performed By: #### L 500.4050, L100.0600 #### [facility] [address] [place], [address] Potassium [Moles/Vol] 4.0 mmol/L Normal 3.5-5.1 [facility] Comment on above: Performed By: #### L 500.4050, L100.0600 #### [facility] [address] [place], [address] Sodium [Moles/Vol] 136 mmol/L Normal 136-145 [facility] Comment on above: Performed By: #### L 500.4050, L100.0600 #### [facility] [address] [place], [address] T PROT 7.3 g/dL Normal 6.4-8.2 [facility] Comment on above: Performed By: #### L 500.4050, L100.0600 #### [facility] [address] [place], [address] Urea nitrogen [Mass/Vol] 18 mg/dL Normal 7-18 [facility] Comment on above: Performed By: #### L 500.4050, L100.0600 #### [facility] [address] [place], [address] HH, Hemoglobin AND Hematocri ton 07-18-2024 Hematocrit (Bld) [Volume fraction] 44.9 % Normal 40-54 [facility] Comment on above: Performed By: #### L 500.4050, L100.0600 #### [facility] [address] [place], [address] Hemoglobin (Bld) [Mass/Vol] 15.2 g/dL Normal 13.0-16.5 [facility] Comment on above: Performed By: #### L 500.4050, L100.0600 #### [facility] [address] [place], [address] CBC W/Diff, Automatedon 08-2 -2023 Absolute Lymph 1.55 X10 3/uL Normal 0.83-4.51 [facility] Comment on above: Performed By: #### L 501.2300, L501.5200, L100.0100, L500.4050 #### [facility] [address] [place], [address] Absolute Neut 5.2 X10 3/uL Normal 2.0-7.7 [facility] Comment on above: Performed By: #### L 501.2300, L501.5200, L100.0100, L500.4050 #### [facility] [address] [place], [address] Basophils/100 WBC (Bld) 0.6 % Normal 0-1 [facility] Comment on above: Performed By: #### L 501.2300, L501.5200, L100.0100, L500.4050 #### [facility] [address] [place], [address] Eosinophils/100 WBC (Bld) 1.4 % Normal 0-5 [facility] Comment on above: Performed By: #### L 501.2300, L501.5200, L100.0100, L500.4050 #### [facility] [address] [place], [address] Erythrocyte distribution width (RBC) [Ratio] 12.9 % Normal 11.6-14.6 [facility] Comment on above: Performed By: #### L 501.2300, L501.5200, L100.0100, L500.4050 #### [facility] [address] [place], [address] Hematocrit (Bld) [Volume fraction] 44.2 % Normal 40-54 [facility] Comment on above: Performed By: #### L 501.2300, L501.5200, L100.0100, L500.4050 #### [facility] [address] [place], [address] Hemoglobin (Bld) [Mass/Vol] 14.7 g/dL Normal 13.0-16.5 [facility] Comment on above: Performed By: #### L 501.2300, L501.5200, L100.0100, L500.4050 #### [facility] [address] [place], [address] IG% 0.500 Normal 0.0-0.9 [facility] Comment on above: Result Comment: IG% - Immature Granulocytes (promyelocytes, myelocytes and metamyelocytes) > 1% indicates that a LEFT SHIFT is Present. Performed By: #### L 501.2300, L501.5200, L100.0100, L500.4050 #### [facility] [address] [place], [address] Lymphocytes/100 WBC (Bld) 19.6 % Normal 19-41 [facility] Comment on above: Performed By: #### L 501.2300, L501.5200, L100.0100, L500.4050 #### [facility] [address] [place], [address] MCH (RBC) [Entitic mass] 31.5 pg Normal 27.0-32.0 [facility] Comment on above: Performed By: #### L 501.2300, L501.5200, L100.0100, L500.4050 #### [facility] [address] [place], [address] MCHC (RBC) [Mass/Vol] 33.3 g/dL Normal 32-36 [facility] Comment on above: Performed By: #### L 501.2300, L501.5200, L100.0100, L500.4050 #### [facility] [address] [place], [address] MCV (RBC) [Entitic vol] 94.6 fL High 80-94 [facility] Comment on above: Performed By: #### L 501.2300, L501.5200, L100.0100, L500.4050 #### [facility] [address] [place], [address] Monocytes/100 WBC (Bld) 12.4 % High 0-10 [facility] Comment on above: Performed By: #### L 501.2300, L501.5200, L100.0100, L500.4050 #### [facility] [address] [place], [address] Neutrophils/100 WBC (Bld) 65.5 % Normal 47-70 [facility] Comment on above: Performed By: #### L 501.2300, L501.5200, L100.0100, L500.4050 #### [facility] [address] [place], [address] Nucleated RBC (Bld) [#/Vol] 0 10*3/uL Normal 0-5 [facility] Comment on above: Performed By: #### L 501.2300, L501.5200, L100.0100, L500.4050 #### [facility] [address] [place], [address] Platelet mean volume (Bld) [Entitic vol] 10.3 fL Normal 6.2-12.0 [facility] Comment on above: Performed By: #### L 501.2300, L501.5200, L100.0100, L500.4050 #### [facility] [address] [place], [address] Platelets (Bld) [#/Vol] 303 10*3/uL Normal 150-450 [facility] Comment on above: Performed By: #### L 501.2300, L501.5200, L100.0100, L500.4050 #### [facility] [address] [place], [address] RBC (Bld) [#/Vol] 4.67 10*6/uL Normal 4.6-6.2 [facility] Comment on above: Performed By: #### L 501.2300, L501.5200, L100.0100, L500.4050 #### [facility] [address] [place], [address] RDW SD 44.9 fl High 35.1-43.9 [facility] Comment on above: Performed By: #### L 501.2300, L501.5200, L100.0100, L500.4050 #### [facility] [address] [place], [address] WBC (Bld) [#/Vol] 7.9 10*3/uL Normal 4.4-11.0 [facility] Comment on above: Performed By: #### L 501.2300, L501.5200, L100.0100, L500.4050 #### [facility] [address] [place], [address] Comprehensive Metabolic [facility] 07-14-2024 Albumin [Mass/Vol] 3.2 g/dL Normal 3.2-5.0 [facility] Comment on above: Performed By: #### L 501.2300, L501.5200, L100.0100, L500.4050 #### [facility] [address] [place], [address] Albumin/Globulin [Mass ratio] 0.8 {ratio} Low 0.9-2.4 [facility] Comment on above: Performed By: #### L 501.2300, L501.5200, L100.0100, L500.4050 #### [facility] [address] [place], [address] ALK P 239 U/L High 45-117 [facility] Comment on above: Performed By: #### L 501.2300, L501.5200, L100.0100, L500.4050 #### [facility] [address] [place], [address] ALT [Catalytic activity/Vol] 76 U/L High 16-61 [facility] Comment on above: Performed By: #### L 501.2300, L501.5200, L100.0100, L500.4050 #### [facility] [address] [place], [address] AST [Catalytic activity/Vol] 44 U/L High 15-37 [facility] Comment on above: Performed By: #### L 501.2300, L501.5200, L100.0100, L500.4050 #### [facility] [address] [place], [address] Bilirubin [Mass/Vol] 0.90 mg/dL Normal 0.20-1.00 [facility] Comment on above: Result Comment: For patients on eltrombopag therapy, use of Dimension Brawley TBIL is not recommended. Performed By: #### L 501.2300, L501.5200, L100.0100, L500.4050 #### [facility] [address] [place], [address] BUN/CRE 26.1 RATIO High 10-20 [facility] Comment on above: Performed By: #### L 501.2300, L501.5200, L100.0100, L500.4050 #### [facility] [address] [place], [address] CA,Total 9.0 mg/dL Normal 8.5-10.1 [facility] Comment on above: Performed By: #### L 501.2300, L501.5200, L100.0100, L500.4050 #### [facility] [address] [place], [address] Chloride [Moles/Vol] 101 mmol/L Normal 98-107 [facility] Comment on above: Performed By: #### L 501.2300, L501.5200, L100.0100, L500.4050 #### [facility] [address] [place], [address] CO2 [Moles/Vol] 24.0 mmol/L Normal 21.0-32.0 [facility] Comment on above: Performed By: #### L 501.2300, L501.5200, L100.0100, L500.4050 #### [facility] [address] [place], [address] Creatinine [Mass/Vol] 1.15 mg/dL Normal 0.70-1.30 [facility] Comment on above: Result Comment: The validity of the calculated GFR GFRAA in patients over 70 years has not been determined. Clinical correlation is essential. Performed By: #### L 501.2300, L501.5200, L100.0100, L500.4050 #### [facility] [address] [place], [address] ECRCL 59.77 ml/min Normal [facility] Comment on above: Performed By: #### L 501.2300, L501.5200, L100.0100, L500.4050 #### [facility] [address] [place], [address] EST GFR - AA 81 mL/min Normal >60 [facility] Comment on above: Result Comment: Afri can [place] GFR Calc Performed By: #### L 501.2300, L501.5200, L100.0100, L500.4050 #### [facility] [address] [place], [address] GAP 8 Normal 5-15 [facility] Comment on above: Performed By: #### L 501.2300, L501.5200, L100.0100, L500.4050 #### [facility] [address] [place], [address] GFR/1.73 sq M.predicted among non-blacks MDRD (S/P/Bld) [Vol rate/Area] 67 mL/min/{1.73_m2} Normal >60 [facility] Comment on above: Result Comment: Non- GFR Calc Performed By: #### L 501.2300, L501.5200, L100.0100, L500.4050 #### [facility] [address] [place], [address] Globulin (S) [Mass/Vol] 4.2 g/dL Normal 2.2-4.2 [facility] Comment on above: Performed By: #### L 501.2300, L501.5200, L100.0100, L500.4050 #### [facility] [address] [place], [address] Glucose [Mass/Vol] 105 mg/dL Normal 74-106 [facility] Comment on above: Result Comment: Fast ing Glucose result from 100 to 125 mg/dL suggests IMPAIRED HOMEOSTASIS per A.D.A. criteria. Performed By: #### L 501.2300, L501.5200, L100.0100, L500.4050 #### [facility] [address] [place], [address] Potassium [Moles/Vol] 4.2 mmol/L Normal 3.5-5.1 [facility] Comment on above: Performed By: #### L 501.2300, L501.5200, L100.0100, L500.4050 #### [facility] [address] [place], [address] Sodium [Moles/Vol] 133 mmol/L Low 136-145 [facility] Comment on above: Performed By: #### L 501.2300, L501.5200, L100.0100, L500.4050 #### [facility] [address] [place], [address] T PROT 7.4 g/dL Normal 6.4-8.2 [facility] Comment on above: Performed By: #### L 501.2300, L501.5200, L100.0100, L500.4050 #### [facility] [address] [place], [address] Urea nitrogen [Mass/Vol] 30 mg/dL High 7-18 [facility] Comment on above: Performed By: #### L 501.2300, L501.5200, L100.0100, L500.4050 #### [facility] [address] [place], [address] Magnesiumon 07-14-2024 Magnesium [Mass/Vol] 2.6 mg/dL Normal 1.6-2.6 [facility] Comment on above: Performed By: #### L 501.2300, L501.5200, L100.0100, L500.4050 #### [facility] [address] [place], [address] Phosphoruson 07-14-2024 Phosphate [Mass/Vol] 4.2 mg/dL Normal 2.5-4.9 [facility] Comment on above: Performed By: #### L 501.2300, L501.5200, L100.0100, L500.4050 #### [facility] [address] [place], [address] Basic metabolic 2000 panelon 07-13-2024 Anion gap [Moles/Vol] 16 mmol/L 10 - 2 0 mmol/L [facility] Calcium [Mass/Vol] 8.9 mg/dL 8.6 - 10. 3 mg/dL [facility] Chloride [Moles/Vol] 101 mmol/L 98 - 10 7 mmol/L [facility] CO2 [Moles/Vol] 21 mmol/L 21 - 32 mmol/L [facility] Creatinine [Mass/Vol] 1.28 mg/dL 0.50 - 1.30 mg/dL [facility] GFR/1.73 sq M.predicted among non-blacks MDRD (S/P/Bld) [Vol rate/Area] 61 mL/min/{1.73_m2} - PINF [facility] Comment on above: Calculations of therese mated GFR are performed using the 2020 CKD-EPI Study Refit equation without the race variable for the IDMS-Traceable creatinine methods. https://jasn.asnjournals.org/content/early//ASN.94813 93163 Glucose [Mass/Vol] 101 mg/dL High 74 - 99 mg/dL [facility] Interpretation and review of laboratory results Abnormal [facility] Potassium [Moles/Vol] 4.6 mmol/L 3.5 - 5.3 mmol/L [facility] Sodium [Moles/Vol] 133 mmol/L Low 136 - 145 mmol/L [facility] Urea nitrogen [Mass/Vol] 26 mg/dL High 6 - 23 mg/dL [facility] Anion gap [Moles/Vol] 16 mmol/L Normal 10-20 [facility] Comment on above: Performed By: #### 1 4979-9 #### BETH FOSTER ([id number]) [facility] ([facility]) [facility] [place] [address] Calcium [Mass/Vol] 8.9 mg/dL Normal 8.6-10.[address] [facility] Comment on above: Performed By: #### 1 4979-9 #### BETH FOSTER ([id number]) [facility] ([facility]) [address] [place] [address] Chloride [Moles/Vol] 101 mmol/L Normal 98-107 [facility] Comment on above: Performed By: #### 1 4979-9 #### BETH FOSTER ([id number]) [facility] ([facility]) [facility] [place] [address] CO2 [Moles/Vol] 21 mmol/L Normal 21-32 [facility] Comment on above: Performed By: #### 1 4979-9 #### BETH FOSTER ([id number]) [facility] ([facility]) [address] [place] [address] Creatinine [Mass/Vol] 1.28 mg/dL Normal 0.50-1.30 [facility] Comment on above: Performed By: #### 1 4979-9 #### BETH FOSTER ([id number]) [facility] ([facility]) [address] [place] [address] Glomerular filtration rate/1.73 sq M.predicted 61 mL/min/1.73m*2 Normal >60 [facility] Comment on above: Result Comment: Calc ulations of estimated GFR are performed using the 2020 CKD-EPI Study Refit equation without the race variable for the IDMS-Traceable creatinine methods. https://jasn.asnjournals.org/content//ASN.30343 50142 Performed By: #### 1 4979-9 #### BETH FOSTER ([id number]) [facility] ([facility]) [address] [place] [address] Glucose [Mass/Vol] 101 mg/dL High 74-[address] [facility] Comment on above: Performed By: #### 1 4979-9 #### BETH FOSTER ([id number]) [facility] ([facility]) [address] [place] [address] Potassium [Moles/Vol] 4.6 mmol/L Normal 3.5-5.3 [facility] Comment on above: Performed By: #### 1 4979-9 #### BETH FOSTER ([id number]) [facility] ([facility]) [address] [place] [address] Sodium [Moles/Vol] 133 mmol/L Low 136-[address] [facility] Comment on above: Performed By: #### 1 4979-9 #### BETH FOSTER ([id number]) [facility] ([facility]) [address] [place] [address] Urea nitrogen [Mass/Vol] 26 mg/dL High 6-23 [facility] [facility] Comment on above: Performed By: #### 1 4979-9 #### BETH FOSTER ([id number]) [facility] ([facility]) [address] [place] [address] CBC panel Auto (Bld)on 07-13 Erythrocyte distribution width (RBC) [Ratio] 13.0 % 11.5 - 14.5 % [facility] Hematocrit (Bld) [Volume fraction] 45.5 % 41.0 - 52.0 % [facility] Hemoglobin (Bld) [Mass/Vol] 15.2 g/dL 13.5 - 17.5 g/dL [facility] Interpretation and review of laboratory results Normal [facility] MCH (RBC) [Entitic mass] 32.1 pg 26.0 - 34.0 pg [facility] MCHC (RBC) [Mass/Vol] 33.4 g/dL 32.0 - 36.0 g/dL [facility] MCV (RBC) [Entitic vol] 96 fL 80 - 100 fL [facility] Nucleated RBC/100 WBC (Bld) [Ratio] 0.0 % [facility] Platelets (Bld) [#/Vol] 245 10*3/uL [facility] RBC (Bld) [#/Vol] 4.74 10*6/uL [facility] WBC (Bld) [#/Vol] 8.4 10*3/uL [facility] Erythrocyte distribution width (RBC) [Ratio] 13.0 % Normal 11.5-14.5 [facility] Comment on above: Performed By: #### 1 4979-9 #### BETH FOSTER ([id number]) [facility] ([facility]) [address] [place] [address] Hematocrit (Bld) [Volume fraction] 45.5 % Normal 41.0-52.0 [facility] Comment on above: Performed By: #### 1 4979-9 #### BETH FOSTER ([id number]) [facility] ([facility]) [address] [place] [address] 62440 Hemoglobin (Bld) [Mass/Vol] 15.2 g/dL Normal 13.5-17.5 [facility] Comment on above: Performed By: #### 1 4979-9 #### BETH FOSTER ([id number]) [facility] ([facility]) [address] [place] [address] 56663 MCH (RBC) [Entitic mass] 32.1 pg Normal 26.0-34.0 [facility] Comment on above: Performed By: #### 1 4979-9 #### BETH FOSTER ([id number]) [facility] ([facility]) [address] [place] [address] 33757 MCHC (RBC) [Mass/Vol] 33.4 g/dL Normal 32.0-36.0 [facility] Comment on above: Performed By: #### 1 4979-9 #### BETH FOSTER ([id number]) [facility] ([facility]) [address] [place] [address] 50948 MCV (RBC) [Entitic vol] 96 fL Normal 80-100 [facility] Comment on above: Performed By: #### 1 4979-9 #### BETH FOSTER ([id number]) [facility] ([facility]) [address] [place] [address] 16417 Nucleated RBC/100 WBC (Bld) [Ratio] 0.0 /100 WBCs Normal 0.0-0.0 [facility] Comment on above: Performed By: #### 1 4979-9 #### BETH FOSTER ([id number]) [facility] ([facility]) [address] [place] [address] 90056 Platelets (Bld) [#/Vol] 245 x10*3/uL Normal 150-450 [facility] Comment on above: Performed By: #### 1 4979-9 #### BETH FOSTER ([id number]) [facility] ([facility]) [address] [place] [address] 12619 RBC (Bld) [#/Vol] 4.74 x10*6/uL Normal 4.50-5.90 [facility] Comment on above: Performed By: #### 1 4979-9 #### BETH FOSTER ([id number]) [facility] ([facility]) [address] [place] [address] 98505 WBC (Bld) [#/Vol] 8.4 x10*3/uL Normal 4.4-11.3 [facility] Comment on above: Performed By: #### 1 4979-9 #### BTEH FOSTER ([id number]) [facility] ([facility]) [address] [place], [place] [address] Glucose Test strip manual (B ld) [Mass/Vol]on 07-13-2024 Glucose [Mass/Vol] 124 mg/dL High 74 - 99 mg/dL [facility] Interpretation and review of laboratory results Abnormal [facility] Glucose [Mass/Vol] 124 mg/dL High 74-[address] [facility] Comment on above: Performed By: #### 2 4323-8 #### BETH FOSTER ([id number]) [facility] ([facility]) [address] [place] [address] 17801 Glucose [Mass/Vol] 112 mg/dL High 74 - 99 mg/dL [facility] Interpretation and review of laboratory results Abnormal [facility] Glucose [Mass/Vol] 112 mg/dL High 74-[address] [facility] Comment on above: Performed By: #### 2 4323-8 #### BETH FOSTER ([id number]) [facility] ([facility]) [address] [place] [address] 11040 Glucose [Mass/Vol] 104 mg/dL High 74 - 99 mg/dL [facility] Comment on above: RN NOTIFIED Interpretation and review of laboratory results Abnormal [facility] Glucose [Mass/Vol] 104 mg/dL High 74-[address] [facility] Comment on above: Result Comment: [facility] Performed By: #### 2 4323-8 #### BETH FOSTER ([id number]) [facility] ([facility]) [address] [place] [address] Basic metabolic 2000 panelon 07-12-2024 Anion gap [Moles/Vol] 13 mmol/L 10 - 2 0 mmol/L [facility] Calcium [Mass/Vol] 8.9 mg/dL 8.6 - 10. 3 mg/dL [facility] Chloride [Moles/Vol] 103 mmol/L 98 - 10 7 mmol/L [facility] CO2 [Moles/Vol] 23 mmol/L 21 - 32 mmol/L [facility] Creatinine [Mass/Vol] 1.11 mg/dL 0.50 - 1.30 mg/dL [facility] GFR/1.73 sq M.predicted among non-blacks MDRD (S/P/Bld) [Vol rate/Area] 72 mL/min/{1.73_m2} - PINF [facility] Comment on above: Calculations of therese mated GFR are performed using the 2020 CKD-EPI Study Refit equation without the race variable for the IDMS-Traceable creatinine methods. https://jasn.asnjournals.org/content//ASN.33501 58456 Glucose [Mass/Vol] 115 mg/dL High 74 - 99 mg/dL [facility] Interpretation and review of laboratory results Abnormal [facility] Potassium [Moles/Vol] 4.2 mmol/L 3.5 - 5.3 mmol/L [facility] Sodium [Moles/Vol] 135 mmol/L Low 136 - 145 mmol/L [facility] Urea nitrogen [Mass/Vol] 16 mg/dL 6 - 23 mg/dL [facility] Anion gap [Moles/Vol] 13 mmol/L Normal 10-20 [facility] Comment on above: Performed By: #### 1 4979-9 #### BETH FOSTER ([id number]) [facility] ([facility]) [address] [place] [address] Calcium [Mass/Vol] 8.9 mg/dL Normal 8.6-10.[address] [facility] Comment on above: Performed By: #### 1 4979-9 #### BETH FOSTER ([id number]) [facility] ([facility]) [address] [place] [address] 85286 Chloride [Moles/Vol] 103 mmol/L Normal 98-107 [facility] Comment on above: Performed By: #### 1 4979-9 #### BETH FOSTER ([id number]) [facility] ([facility]) [address] [place] [address] 01895 CO2 [Moles/Vol] 23 mmol/L Normal 21-32 [facility] Comment on above: Performed By: #### 1 4979-9 #### BETH FOSTER ([id number]) [facility] ([facility]) [address] [place] [address] 56833 Creatinine [Mass/Vol] 1.11 mg/dL Normal 0.50-1.30 [facility] Comment on above: Performed By: #### 1 4979-9 #### BETH FOSTER ([id number]) [facility] ([facility]) [address] [place] [address] 19008 Glomerular filtration rate/1.73 sq M.predicted 72 mL/min/1.73m*2 Normal >60 [facility] Comment on above: Result Comment: Calc ulations of estimated GFR are performed using the 2020 CKD-EPI Study Refit equation without the race variable for the IDMS-Traceable creatinine methods. https://jasn.asnjournals.org/content/early//ASN.56190 72191 Performed By: #### 1 4979-9 #### BETH FOSTER ([id number]) [facility] ([facility]) [address] [place] [address] 94289 Glucose [Mass/Vol] 115 mg/dL High 74-[address] [facility] Comment on above: Performed By: #### 1 4979-9 #### BETH FOSTER ([id number]) [facility] ([facility]) [facility] [place] [address] Potassium [Moles/Vol] 4.2 mmol/L Normal 3.5-5.3 [facility] Comment on above: Performed By: #### 1 4979-9 #### BETH FOSTER ([id number]) [facility] ([facility]) [address] [place] [address] Sodium [Moles/Vol] 135 mmol/L Low 136-[address] [facility] Comment on above: Performed By: #### 1 4979-9 #### BETH FOSTER ([id number]) [facility] ([facility]) [address] [place] [address] Urea nitrogen [Mass/Vol] 16 mg/dL Normal 6-23 [facility] Comment on above: Performed By: #### 1 4979-9 #### BETH FOSTER ([id number]) [facility] ([facility]) [address] [place] [address] CBC panel Auto (Bld)on 07-12 Erythrocyte distribution width (RBC) [Ratio] 13.1 % 11.5 - 14.5 % [facility] Hematocrit (Bld) [Volume fraction] 46.5 % 41.0 - 52.0 % [facility] Hemoglobin (Bld) [Mass/Vol] 15.6 g/dL 13.5 - 17.5 g/dL [facility] Interpretation and review of laboratory results Normal [facility] MCH (RBC) [Entitic mass] 31.8 pg 26.0 - 34.0 pg [facility] MCHC (RBC) [Mass/Vol] 33.5 g/dL 32.0 - 36.0 g/dL [facility] MCV (RBC) [Entitic vol] 95 fL 80 - 100 fL [facility] Nucleated RBC/100 WBC (Bld) [Ratio] 0.0 % [facility] Platelets (Bld) [#/Vol] 245 10*3/uL [facility] RBC (Bld) [#/Vol] 4.91 10*6/uL [facility] WBC (Bld) [#/Vol] 10.1 10*3/uL [facility] Erythrocyte distribution width (RBC) [Ratio] 13.1 % Normal 11.5-14.5 [facility] Comment on above: Performed By: #### 1 4979-9 #### BETH FOSTER ([id number]) [facility] ([facility]) [address] [place] [address] Hematocrit (Bld) [Volume fraction] 46.5 % Normal 41.0-52.0 [facility] Comment on above: Performed By: #### 1 4979-9 #### BETH FOSTER ([id number]) [facility] ([facility]) [address] [place] [address] Hemoglobin (Bld) [Mass/Vol] 15.6 g/dL Normal 13.5-17.5 [facility] Comment on above: Performed By: #### 1 4979-9 #### BETH FOSTER ([id number]) [facility] ([facility]) [address] [place] [address] 27168 MCH (RBC) [Entitic mass] 31.8 pg Normal 26.0-34.0 [facility] Comment on above: Performed By: #### 1 4979-9 #### BEHT FOSTER ([id number]) [facility] ([facility]) [address] [place] [address] 29711 MCHC (RBC) [Mass/Vol] 33.5 g/dL Normal 32.0-36.0 [facility] Comment on above: Performed By: #### 1 4979-9 #### BETH FOSTER ([id number]) [facility] ([facility]) [address] [place] [address] 06700 MCV (RBC) [Entitic vol] 95 fL Normal 80-100 [facility] Comment on above: Performed By: #### 1 4979-9 #### BETH FOSTER ([id number]) [facility] ([facility]) [address] [place] [address] 27446 Nucleated RBC/100 WBC (Bld) [Ratio] 0.0 /100 WBCs Normal 0.0-0.0 [facility] Comment on above: Performed By: #### 1 4979-9 #### BETH FOSTER ([id number]) [facility] ([facility]) [address] [place] [address] 05748 Platelets (Bld) [#/Vol] 245 x10*3/uL Normal 150-450 [facility] Comment on above: Performed By: #### 1 4979-9 #### BETH FOSTER ([id number]) [facility] ([facility]) [address] [place] [address] 95053 RBC (Bld) [#/Vol] 4.91 x10*6/uL Normal 4.50-5.90 [facility] Comment on above: Performed By: #### 1 4979-9 #### BETH FOSTER ([id number]) [facility] ([facility]) [address] [place], [place] [address] WBC (Bld) [#/Vol] 10.1 x10*3/uL Normal 4.4-11.3 [facility] Comment on above: Performed By: #### 1 4979-9 #### BETH FOSTER ([id number]) [facility] ([facility]) [address] [place], [place] [address] Glucose Test strip manual (B ld) [Mass/Vol]on 07-12-2024 Glucose [Mass/Vol] 121 mg/dL High 74 - 99 mg/dL [facility] Interpretation and review of laboratory results Abnormal [facility] Glucose [Mass/Vol] 121 mg/dL High 74-[address] [facility] Comment on above: Performed By: #### 1 4979-9 #### BETH FOSTER ([id number]) [facility] ([facility]) [address] [place] [address] 20559 Glucose [Mass/Vol] 103 mg/dL High 74 - 99 mg/dL [facility] Interpretation and review of laboratory results Abnormal [facility] Glucose [Mass/Vol] 103 mg/dL High 74-[address] [facility] Comment on above: Performed By: #### 1 4979-9 #### BETH FOSTER ([id number]) [facility] ([facility]) [address] [place] [address] Glucose [Mass/Vol] 134 mg/dL High 74 - 99 mg/dL [facility] Interpretation and review of laboratory results Abnormal [facility] Glucose [Mass/Vol] 134 mg/dL High 74-[address] [facility] Comment on above: Performed By: #### 1 4979-9 #### BETH FOSTER ([id number]) [facility] ([facility]) [facility] [place] [address] Glucose [Mass/Vol] 103 mg/dL High 74 - 99 mg/dL [facility] Interpretation and review of laboratory results Abnormal [facility] Glucose [Mass/Vol] 103 mg/dL High 74-[address] [facility] Comment on above: Performed By: #### 1 4979-9 #### BETH FOSTER ([id number]) [facility] ([facility]) [facility] [place] [address] Basic metabolic 2000 panelon 07-11-2024 Anion gap [Moles/Vol] 12 mmol/L 10 - 2 0 mmol/L [facility] Calcium [Mass/Vol] 8.9 mg/dL 8.6 - 10. 3 mg/dL [facility] Chloride [Moles/Vol] 105 mmol/L 98 - 10 7 mmol/L [facility] CO2 [Moles/Vol] 23 mmol/L 21 - 32 mmol/L [facility] Creatinine [Mass/Vol] 1.17 mg/dL 0.50 - 1.30 mg/dL [facility] GFR/1.73 sq M.predicted among non-blacks MDRD (S/P/Bld) [Vol rate/Area] 67 mL/min/{1.73_m2} - PINF [facility] Comment on above: Calculations of therese mated GFR are performed using the 2020 CKD-EPI Study Refit equation without the race variable for the IDMS-Traceable creatinine methods. https://jasn.asnjournals.org/content//ASN.76071 24877 Glucose [Mass/Vol] 114 mg/dL High 74 - 99 mg/dL [facility] Interpretation and review of laboratory results Abnormal [facility] Potassium [Moles/Vol] 4.1 mmol/L 3.5 - 5.3 mmol/L [facility] Sodium [Moles/Vol] 136 mmol/L 136 - 145 mmol/L [facility] Urea nitrogen [Mass/Vol] 14 mg/dL 6 - 23 mg/dL [facility] Anion gap [Moles/Vol] 12 mmol/L Normal 10-20 [facility] Comment on above: Performed By: #### 5 902-2 #### BETH FOSTER ([id number]) [facility] ([facility]) [address] [place] [address] 80828 Calcium [Mass/Vol] 8.9 mg/dL Normal 8.6-10.[address] [facility] Comment on above: Performed By: #### 5 902-2 #### BETH FOSTER ([id number]) [facility] ([facility]) [address] [place] [address] 70714 Chloride [Moles/Vol] 105 mmol/L Normal 98-107 [facility] Comment on above: Performed By: #### 5 902-2 #### BETH FOSTER ([id number]) [facility] ([facility]) [address] [place] [address] 58806 CO2 [Moles/Vol] 23 mmol/L Normal 21-32 [facility] Comment on above: Performed By: #### 5 902-2 #### BETH FOSTER ([id number]) [facility] ([facility]) [address] [place] [address] 41262 Creatinine [Mass/Vol] 1.17 mg/dL Normal 0.50-1.30 [facility] Comment on above: Performed By: #### 5 902-2 #### BETH FOSTER ([id number]) [facility] ([facility]) [address] [place] [address] 04471 Glomerular filtration rate/1.73 sq M.predicted 67 mL/min/1.73m*2 Normal >60 [facility] Comment on above: Result Comment: Calc ulations of estimated GFR are performed using the 2020 CKD-EPI Study Refit equation without the race variable for the IDMS-Traceable creatinine methods. https://jasn.asnjournals.org/content/early/ASN.25208 05875 Performed By: #### 5 902-2 #### BETH FOSTER ([id number]) [facility] ([facility]) [address] [place] [address] 03962 Glucose [Mass/Vol] 114 mg/dL High 74-[address] [facility] Comment on above: Performed By: #### 5 902-2 #### BETH FOSTER ([id number]) [facility] ([facility]) [address] [place] [address] 46157 Potassium [Moles/Vol] 4.1 mmol/L Normal 3.5-5.3 [facility] Comment on above: Performed By: #### 5 902-2 #### BETH FOSTER ([id number]) [facility] ([facility]) [address] [place] [address] 46224 Sodium [Moles/Vol] 136 mmol/L Normal 136-[address] [facility] Comment on above: Performed By: #### 5 902-2 #### BETH FOSTER ([id number]) [facility] ([facility]) [address] [place] [address] 42007 Urea nitrogen [Mass/Vol] 14 mg/dL Normal 6-23 [facility] Comment on above: Performed By: #### 5 902-2 #### BETH FOSTER ([id number]) [facility] ([facility]) [address] [place] [address] 27436 CARDIAC CATHETERIZATION PROC Arely 07-11-2024 CARDIAC CATHETERIZATION PROCEDURE [facility] [employer] Machine Attendant [address] [place] [address] [phone], Cardiovascular Catheterization Report Patient Name: CISCO SAINI Performing Physician: [id number] Kwong MD Study Date: 07/11/2024 Verifying Physician: Gil Kwong MD MRN/PID: [id number] Mobile Security Specialist/Co-Scrub: Ordering Provider: Gil KWONG Date of /Age: 1 1955 / 68 years Mobile Security Specialist: Gender: M Fellow: Surgeon: Study: Left Heart Cath Indications: CISCO SAINI is a 69 year old male who presents with hypertension, diabetes, dyslipidemia, Stroke and an anginal equivalent chest pain assessment (i.e. dyspnea on exertion believed to be from ischemia). NSTE - ACS. Stress test performed: No. CTA performed: No. Cristiane accessed: No. LVEF Assessed: No. Cardiac arrest: No. Cardiac surgical consult: No. Cardiovascular Instability: No Procedure Description: After infiltration with 2% Lidocaine, the right radial artery was cannulated with a modified Seldinger technique. Subsequently a 6 Swiss sheath was placed in the right radial artery. Selective coronary catheterization was performed using a 5 Fr catheter(s) exchanged over a guide wire to cannulate the coronary arteries. A 5 Fr Bethel catheter was used for left and right coronary artery injections. Multiple injections of contrast were made into the left and right coronary arteries with angiograms recorded in multiple projections. After completion of the procedure, the arterial sheath was pulled and a TR Band Radial Compression Device was utilized to obtain patent hemostasis. Coronary Angiography: The coronary circulation is right dominant. Left Main Coronary Artery: The left main coronary artery is a normal caliber vessel. The left main arises normally from the left coronary sinus of Valsalva and bifurcates into the LAD and circumflex coronary arteries. The left main coronary artery showed a normal vessel. Left Anterior Descending Coronary Artery Distribution: The left anterior descending coronary artery is a normal caliber vessel. The LAD arises normally from the left main coronary artery. The LAD demonstrated atherosclerotic disease and calcification. The proximal left anterior descending coronary artery showed 70% stenosis. This lesion was calcified. The 1st diagonal branch is a small caliber vessel. The 1st diagonal branch showed atherosclerotic disease. The proximal 1st diagonal branch revealed 90% stenosis. This lesion was calcified. Circumflex Coronary Artery Distribution: The circumflex coronary artery is a normal caliber vessel. The circumflex arises normally from the left main coronary artery and terminates in the AV groove. The circumflex revealed atherosclerotic disease. The mid circumflex coronary artery showed 50% stenosis. This lesion was calcified. The 1st obtuse marginal branch is a small caliber vessel. The 1st obtuse marginal branch showed no significant disease or stenosis greater than 30%. The 2nd obtuse marginal branch is a medium-sized caliber vessel. The 2nd obtuse marginal branch demonstrated no significant disease or stenosis greater than 30%. The 3rd obtuse marginal branch is a normal caliber vessel. The 3rd obtuse marginal branch revealed atherosclerotic disease. The proximal 3rd obtuse marginal branch revealed 95% stenosis. Ramus Intermedius: The ramus intermedius is a normal caliber vessel. The ramus intermedius arises normally from the left main coronary artery. The ramus intermedius showed atherosclerotic disease. The proximal ramus intermedius showed 50% stenosis. Right Coronary Artery Distribution: The right coronary artery is a normal caliber vessel. The RCA arises normally from the right sinus of Valsalva. The RCA showed atherosclerotic disease and calcification. The distal right coronary artery showed 90% stenosis. This lesion was diffuse. The right posterolateral branch is a normal caliber vessel. The right posterolateral branch showed no significant disease or stenosis greater than 30%. The right posterior descending artery is a normal caliber vessel. The right posterior descending artery showed no significant disease or stenosis greater than 30%. Left Ventriculography: The LV ejection fraction was 60 to 65%. All left ventricular regional wall segments contract normally. Coronary Lesion Summary: Vessel Stenosis Vessel Segment LAD 70% stenosis proximal 1st Diagonal 90% stenosis proximal Circumflex 50% stenosis mid OM 3 95% stenosis proximal Ramus 50% stenosis proximal RCA 90% stenosis distal Hemo Personnel: + -------+---------+ Name Duty + -------+---------+ Emanuel Giraldo MD, MD 1 + -------+---------+ Hemodynamic Pressures: +----+ --+---------+ --+ +---- (more content not included)... Normal [facility] CBC panel Auto (Bld)on 07-11 Erythrocyte distribution width (RBC) [Ratio] 13.2 % 11.5 - 14.5 % [facility] Hematocrit (Bld) [Volume fraction] 46.6 % 41.0 - 52.0 % [facility] Hemoglobin (Bld) [Mass/Vol] 15.5 g/dL 13.5 - 17.5 g/dL [facility] Interpretation and review of laboratory results Normal [facility] [facility] M[facility] (RBC) [Entitic mass] 31.4 pg 26.0 - 34.0 pg [facility] MCHC (RBC) [Mass/Vol] 33.3 g/dL 32.0 - 36.0 g/dL [facility] MCV (RBC) [Entitic vol] 94 fL 80 - 100 fL [facility] Nucleated RBC/100 WBC (Bld) [Ratio] 0.0 % [facility] Platelets (Bld) [#/Vol] 247 10*3/uL [facility] RBC (Bld) [#/Vol] 4.94 10*6/uL [facility] WBC (Bld) [#/Vol] 9.8 10*3/uL [facility] Erythrocyte distribution width (RBC) [Ratio] 13.2 % Normal 11.5-14.5 [facility] Comment on above: Performed By: #### 5 902-2 #### CAMPOS CRISTIAN ([id number]) [facility] ([facility]) [address] [place] [address] Hematocrit (Bld) [Volume fraction] 46.6 % Normal 41.0-52.0 [facility] Comment on above: Performed By: #### 5 902-2 #### BETH FOSTER ([id number]) [facility] ([facility]) [address] [place] [address] 56043 Hemoglobin (Bld) [Mass/Vol] 15.5 g/dL Normal 13.5-17.5 [facility] Comment on above: Performed By: #### 5 902-2 #### BETH FOSTER ([id number]) [facility] ([facility]) [address] [place] [address] 10815 MCH (RBC) [Entitic mass] 31.4 pg Normal 26.0-34.0 [facility] Comment on above: Performed By: #### 5 902-2 #### BETH FOSTER ([id number]) [facility] ([facility]) [address] [place] [address] 48892 MCHC (RBC) [Mass/Vol] 33.3 g/dL Normal 32.0-36.0 [facility] Comment on above: Performed By: #### 5 902-2 #### BETH FOSTER ([id number]) [facility] ([facility]) [address] [place] [address] 63552 MCV (RBC) [Entitic vol] 94 fL Normal 80-100 [facility] Comment on above: Performed By: #### 5 902-2 #### BETH FOSTER ([id number]) [facility] ([facility]) [address] [place] [address] 17846 Nucleated RBC/100 WBC (Bld) [Ratio] 0.0 /100 WBCs Normal 0.0-0.0 [facility] Comment on above: Performed By: #### 5 902-2 #### BETH FOSTER ([id number]) [facility] ([facility]) [address] [place] [address] 97769 Platelets (Bld) [#/Vol] 247 x10*3/uL Normal 150-450 [facility] Comment on above: Performed By: #### 5 902-2 #### BETH FOSTER ([id number]) [facility] ([facility]) [facility] [place] [id number] RBC (Bld) [#/Vol] 4.94 x10*6/uL Normal 4.50-5.90 [facility] Comment on above: Performed By: #### 5 902-2 #### CAMPOS PEBBLESCYNTHIA ([id number]) [facility] ([facility]) [address] [place] [address] 71612 WBC (Bld) [#/Vol] 9.8 x10*3/uL Normal 4.4-11.3 [facility] Comment on above: Performed By: #### 5 902-2 #### BETH FOSTER ([id number]) [facility] ([facility]) [address] [place] [address] Cardiac catheterization stud yon 07-11-2024 [facility] Poker Machine Attendant [address] [place] [address] [phone], Cardiovascular Catheterization Report Patient Name: CISCO SAINI Performing Physician: Gil Kwong MD Study Date: 07/11/2024 Verifying Physician: Gil Kwong MD MRN/PID: [id number] Mobile Security Specialist/Co-Scrub: Ordering Provider: Gil KWONG Date of /Age: 1 1955 / 68 years Mobile Security Specialist: Gender: M Fellow: Surgeon: Study: Left Heart Cath Indications: CISCO SAINI is a 69 year old male who presents with hypertension, diabetes, dyslipidemia, Stroke and an anginal equivalent chest pain assessment (i.e. dyspnea on exertion believed to be from ischemia). NSTE - ACS. Stress test performed: No. CTA performed: No. Sauer accessed: No. LVEF Assessed: No. Cardiac arrest: No. Cardiac surgical consult: No. Cardiovascular Instability: No Procedure Description: After infiltration with 2% Lidocaine, the right radial artery was cannulated with a modified Seldinger technique. Subsequently a 6 Swiss sheath was placed in the right radial artery. Selective coronary catheterization was performed using a 5 Fr catheter(s) exchanged over a guide wire to cannulate the coronary arteries. A 5 Fr Bethel catheter was used for left and right coronary artery injections. Multiple injections of contrast were made into the left and right coronary arteries with angiograms recorded in multiple projections. After completion of the procedure, the arterial sheath was pulled and a TR Band Radial Compression Device was utilized to obtain patent hemostasis. Coronary Angiography: The coronary circulation is right dominant. Left Main Coronary Artery: The left main coronary artery is a normal caliber vessel. The left main arises normally from the left coronary sinus of Valsalva and bifurcates into the LAD and circumflex coronary arteries. The left main coronary artery showed a normal vessel. Left Anterior Descending Coronary Artery Distribution: The left anterior descending coronary artery is a normal caliber vessel. The LAD arises normally from the left main coronary artery. The LAD demonstrated atherosclerotic disease and calcification. The proximal left anterior descending coronary artery showed 70% stenosis. This lesion was calcified. The 1st diagonal branch is a small caliber vessel. The 1st diagonal branch showed atherosclerotic disease. The proximal 1st diagonal branch revealed 90% stenosis. This lesion was calcified. Circumflex Coronary Artery Distribution: The circumflex coronary artery is a normal caliber vessel. The circumflex arises normally from the left main coronary artery and terminates in the AV groove. The circumflex revealed atherosclerotic disease. The mid circumflex coronary artery showed 50% stenosis. This lesion was calcified. The 1st obtuse marginal branch is a small caliber vessel. The 1st obtuse marginal branch showed no significant disease or stenosis greater than 30%. The 2nd obtuse marginal branch is a medium-sized caliber vessel. The 2nd obtuse marginal branch demonstrated no significant disease or stenosis greater than 30%. The 3rd obtuse marginal branch is a normal caliber vessel. The 3rd obtuse marginal branch revealed atherosclerotic disease. The proximal 3rd obtuse marginal branch revealed 95% stenosis. Ramus Intermedius: The ramus intermedius is a normal caliber vessel. The ramus intermedius arises normally from the left main coronary artery. The ramus intermedius showed atherosclerotic disease. The proximal ramus intermedius showed 50% stenosis. Right Coronary Artery Distribution: The right coronary artery is a normal caliber vessel. The RCA arises normally from the right sinus of Valsalva. The RCA showed atherosclerotic disease and calcification. The distal right coronary artery showed 90% stenosis. This lesion was diffuse. The right posterolateral branch is a normal caliber vessel. The right posterolateral branch showed no significant disease or stenosis greater than 30%. The right posterior descending artery is a normal caliber vessel. The right posterior descending artery showed no significant disease or stenosis greater than 30%. Left Ventriculography: The LV ejection fraction was 60 to 65%. All left ventricular regional wall segments contract normally. Coronary Lesion Summary: Vessel Stenosis Vessel Segment LAD 70% stenosis proximal 1st Diagonal 90% stenosis proximal Circumflex 50% stenosis mid OM 3 95% stenosis proximal (more content not included)... Emanuel Betancourt MD - 07/11/2024 [facility] Poker Machine Attendant [address] [place] [address] ext-[phone], Cardiovascular Catheterization Report Patient Name: CISCO SAINI Performing Physician: Gil Kwong MD Study Date: 07/11/2024 Verifying Physician: Gil Kwong MD MRN/PID: [id number] Mobile Security Specialist/Co-Scrub: Ordering Provider: Gil KWONG Date of /Age: 1 1955 / 68 years Mobile Security Specialist: Gender: M Fellow: Surgeon: Study: Left Heart Cath Indications: CISCO SAINI is a 69 year old male who presents with hypertension, diabetes, dyslipidemia, Stroke and an anginal equivalent chest pain assessment (i.e. dyspnea on exertion believed to be from ischemia). NSTE - ACS. Stress test performed: No. CTA performed: No. Cristiane accessed: No. LVEF Assessed: No. Cardiac arrest: No. Cardiac surgical consult: No. Cardiovascular Instability: No Procedure Description: After infiltration with 2% Lidocaine, the right radial artery was cannulated with a modified Seldinger technique. Subsequently a 6 Swiss sheath was placed in the right radial artery. Selective coronary catheterization was performed using a 5 Fr catheter(s) exchanged over a guide wire to cannulate the coronary arteries. A 5 Fr Bethel catheter was used for left and right coronary artery injections. Multiple injections of contrast were made into the left and right coronary arteries with angiograms recorded in multiple projections. After completion of the procedure, the arterial sheath was pulled and a TR Band Radial Compression Device was utilized to obtain patent hemostasis. Coronary Angiography: The coronary circulation is right dominant. Left Main Coronary Artery: The left main coronary artery is a normal caliber vessel. The left main arises normally from the left coronary sinus of Valsalva and bifurcates into the LAD and circumflex coronary arteries. The left main coronary artery showed a normal vessel. Left Anterior Descending Coronary Artery Distribution: The left anterior descending coronary artery is a normal caliber vessel. The LAD arises normally from the left main coronary artery. The LAD demonstrated atherosclerotic disease and calcification. The proximal left anterior descending coronary artery showed 70% stenosis. This lesion was calcified. The 1st diagonal branch is a small caliber vessel. The 1st diagonal branch showed atherosclerotic disease. The proximal 1st diagonal branch revealed 90% stenosis. This lesion was calcified. Circumflex Coronary Artery Distribution: The circumflex coronary artery is a normal caliber vessel. The circumflex arises normally from the left main coronary artery and terminates in the AV groove. The circumflex revealed atherosclerotic disease. The mid circumflex coronary artery showed 50% stenosis. This lesion was calcified. The 1st obtuse marginal branch is a small caliber vessel. The 1st obtuse marginal branch showed no significant disease or stenosis greater than 30%. The 2nd obtuse marginal branch is a medium-sized caliber vessel. The 2nd obtuse marginal branch demonstrated no significant disease or stenosis greater than 30%. The 3rd obtuse marginal branch is a normal caliber vessel. The 3rd obtuse marginal branch revealed atherosclerotic disease. The proximal 3rd obtuse marginal branch revealed 95% stenosis. Ramus Intermedius: The ramus intermedius is a normal caliber vessel. The ramus intermedius arises normally from the left main coronary artery. The ramus intermedius showed atherosclerotic disease. The proximal ramus intermedius showed 50% stenosis. Right Coronary Artery Distribution: The right coronary artery is a normal caliber vessel. The RCA arises normally from the right sinus of Valsalva. The RCA showed atherosclerotic disease and calcification. The distal right coronary artery showed 90% stenosis. This lesion was diffuse. The right posterolateral branch is a normal caliber vessel. The right posterolateral branch showed no significant disease or stenosis greater than 30%. The right posterior descending artery is a normal caliber vessel. The right posterior descending artery showed no significant disease or stenosis greater than 30%. Left Ventriculography: The LV ejection fraction was 60 to 65%. All left ventricular regional wall segments contract normally. Coronary Lesion Summary: Vessel Stenosis Vessel Segment LAD 70% stenosis proximal 1st Diagonal 90% stenosis proximal Circumflex 50% stenosis mid OM 3 95% stenosis proximal Ramus 50% stenosis proximal RCA 90% stenosis distal Hemo Personnel: + -------+---------+ Name Duty + -------+---------+ Emanuel Giraldo MD, MD 1 + (more content not included)... [facility] Work Phone: [facility] Work Phone: Glucose Test strip manual (B ld) [Mass/Vol]on 07-11-2024 Glucose [Mass/Vol] 135 mg/dL High 74 - 99 mg/dL [facility] Interpretation and review of laboratory results Abnormal [facility] Glucose [Mass/Vol] 135 mg/dL High 74-[address] [facility] Comment on above: Performed By: #### 1 4979-9 #### BETH FOSTER ([id number]) [facility] ([facility]) [address] [place] [address] 13635 Glucose [Mass/Vol] 110 mg/dL High 74 - 99 mg/dL [facility] Interpretation and review of laboratory results Abnormal [facility] Glucose [Mass/Vol] 110 mg/dL High 74-[address] [facility] Comment on above: Performed By: #### 1 4979-9 #### BETH FOSTER ([id number]) [facility] ([facility]) [address] [place] [address] 87107 Glucose [Mass/Vol] 117 mg/dL High 74 - 99 mg/dL [facility] Interpretation and review of laboratory results Abnormal [facility] Glucose [Mass/Vol] 117 mg/dL High 74-[address] [facility] Comment on above: Performed By: #### 5 902-2 #### BETH FOSTER ([id number]) [facility] ([facility]) [facility] [place] [address] Glucose [Mass/Vol] 123 mg/dL High 74 - 99 mg/dL [facility] Interpretation and review of laboratory results Abnormal [facility] Glucose [Mass/Vol] 123 mg/dL High 74-[address] [facility] Comment on above: Performed By: #### 5 902-2 #### BETH FOSTER ([id number]) [facility] ([facility]) [address] [place] [address] 83282 Basic metabolic 2000 panelon 07-10-2024 Anion gap [Moles/Vol] 13 mmol/L 10 - 2 0 mmol/L [facility] Calcium [Mass/Vol] 8.6 mg/dL 8.6 - 10. 3 mg/dL [facility] Chloride [Moles/Vol] 105 mmol/L 98 - 10 7 mmol/L [facility] CO2 [Moles/Vol] 23 mmol/L 21 - 32 mmol/L [facility] Creatinine [Mass/Vol] 1.08 mg/dL 0.50 - 1.30 mg/dL [facility] GFR/1.73 sq M.predicted among non-blacks MDRD (S/P/Bld) [Vol rate/Area] 74 mL/min/{1.73_m2} - PINF [facility] Comment on above: Calculations of therese mated GFR are performed using the 2020 CKD-EPI Study Refit equation without the race variable for the IDMS-Traceable creatinine methods. https://jasn.asnjournals.org/content/early/ASN.65354 18129 Glucose [Mass/Vol] 108 mg/dL High 74 - 99 mg/dL [facility] Interpretation and review of laboratory results Abnormal [facility] Potassium [Moles/Vol] 3.8 mmol/L 3.5 - 5.3 mmol/L [facility] Sodium [Moles/Vol] 137 mmol/L 136 - 145 mmol/L [facility] Urea nitrogen [Mass/Vol] 13 mg/dL 6 - 23 mg/dL [facility] Anion gap [Moles/Vol] 13 mmol/L Normal 10-20 [facility] Comment on above: Performed By: #### 2 4321-2 ####BETH FOSTER ([id number])[facility] ([facility])[address] [place] [address] 66868 Calcium [Mass/Vol] 8.6 mg/dL Normal 8.6-10.[address] [facility] Comment on above: Performed By: #### 2 4321-2 ####BETH FOSTER ([id number])[facility] ([facility])[address] [place] [address] 03417 Chloride [Moles/Vol] 105 mmol/L Normal 98-107 [facility] Comment on above: Performed By: #### 2 4321-2 ####BETH FOSTER ([id number])[facility] ([facility])[address] [place] [address] 13517 CO2 [Moles/Vol] 23 mmol/L Normal 21-32 [facility] Comment on above: Performed By: #### 2 4321-2 ####BETH FOSTER ([id number])[facility] ([facility])[address] [place] [address] 74028 Creatinine [Mass/Vol] 1.08 mg/dL Normal 0.50-1.30 [facility] Comment on above: Performed By: #### 2 4321-2 ####BETH FOSTER ([id number])[facility] ([facility])[address] [place] [address] 13303 Glomerular filtration rate/1.73 sq M.predicted 74 mL/min/1.73m*2 Normal >60 [facility] Comment on above: Result Comment: Calc ulations of estimated GFR are performed using the 2020 CKD-EPI Study Refit equation without the race variable for the IDMS-Traceable creatinine methods. https://jasn.asnjournals.org/content//ASN.67344 46458 Performed By: #### 2 4321-2 ####BETH FOSTER ([id number])[facility] ([facility])[address] [place] [address] 30486 Glucose [Mass/Vol] 108 mg/dL High 74-[address] [facility] Comment on above: Performed By: #### 2 4321-2 ####BETH FOSTER ([id number])[facility] ([facility])[address] [place] [address] 91103 Potassium [Moles/Vol] 3.8 mmol/L Normal 3.5-5.3 [facility] Comment on above: Performed By: #### 2 4321-2 ####BETH FOSTER ([id number])[facility] ([facility])[address] [place] [address] 74722 Sodium [Moles/Vol] 137 mmol/L Normal 136-[address] [facility] Comment on above: Performed By: #### 2 4321-2 ####BETH FOSTER ([id number])[facility] ([facility])[address] [place] [address] 29652 Urea nitrogen [Mass/Vol] 13 mg/dL Normal 6-23 [facility] Comment on above: Performed By: #### 2 4321-2 ####BETH FOSTER ([id number])[facility] ([facility])[address] [place] [address] 88144 CBC panel Auto (Bld)on 07-10 Erythrocyte distribution width (RBC) [Ratio] 13.2 % 11.5 - 14.5 % [facility] Hematocrit (Bld) [Volume fraction] 45.4 % 41.0 - 52.0 % [facility] Hemoglobin (Bld) [Mass/Vol] 15.1 g/dL 13.5 - 17.5 g/dL [facility] Interpretation and review of laboratory results Normal [facility] MCH (RBC) [Entitic mass] 31.7 pg 26.0 - 34.0 pg [facility] MCHC (RBC) [Mass/Vol] 33.3 g/dL 32.0 - 36.0 g/dL [facility] MCV (RBC) [Entitic vol] 95 fL 80 - 100 fL [facility] Nucleated RBC/100 WBC (Bld) [Ratio] 0.0 % [facility] Platelets (Bld) [#/Vol] 226 10*3/uL [facility] RBC (Bld) [#/Vol] 4.76 10*6/uL [facility] WBC (Bld) [#/Vol] 8.0 10*3/uL [facility] Erythrocyte distribution width (RBC) [Ratio] 13.2 % Normal 11.5-14.5 [facility] Comment on above: Performed By: #### 5 8410-2 ####BETH FOSTER ([id number])[facility] ([facility])[address] [place] [address] 08697 Hematocrit (Bld) [Volume fraction] 45.4 % Normal 41.0-52.0 [facility] Comment on above: Performed By: #### 5 8410-2 ####BETH FOSTER ([id number])[facility] ([facility])[address] [place] [address] 60573 Hemoglobin (Bld) [Mass/Vol] 15.1 g/dL Normal 13.5-17.5 [facility] Comment on above: Performed By: #### 5 8410-2 ####BETH FOSTER ([id number])[facility] ([facility])[address] [place] [address] 97774 MCH (RBC) [Entitic mass] 31.7 pg Normal 26.0-34.0 [facility] Comment on above: Performed By: #### 5 8410-2 ####BETH FOSTER ([id number])[facility] ([facility])[address] [place] [address] 73920 MCHC (RBC) [Mass/Vol] 33.3 g/dL Normal 32.0-36.0 [facility] Comment on above: Performed By: #### 5 8410-2 ####BETH FOSTER ([id number])[facility] ([facility])[address] [place] [address] 40648 MCV (RBC) [Entitic vol] 95 fL Normal 80-100 [facility] Comment on above: Performed By: #### 5 8410-2 ####BETH FOSTER ([id number])[facility] ([facility])[address] [place] [address] 51322 Nucleated RBC/100 WBC (Bld) [Ratio] 0.0 /100 WBCs Normal 0.0-0.0 [facility] Comment on above: Performed By: #### 5 8410-2 ####BETH FOSTER ([id number])[facility] ([facility])[address] [place] [address] 13717 Platelets (Bld) [#/Vol] 226 x10*3/uL Normal 150-450 [facility] Comment on above: Performed By: #### 5 8410-2 ####BETH FOSTER ([id number])[facility] ([facility])[address] [place] [address] 70529 RBC (Bld) [#/Vol] 4.76 x10*6/uL Normal 4.50-5.90 [facility] Comment on above: Performed By: #### 5 8410-2 ####BETH FOSTER ([id number])[facility] ([facility])[address] [place] [address] 96412 WBC (Bld) [#/Vol] 8.0 x10*3/uL Normal 4.4-11.3 [facility] Comment on above: Performed By: #### 5 8410-2 ####BETH FOSTER ([id number])[facility] ([facility])[address] [place] [address] 97529 Glucose Test strip manual (B ld) [Mass/Vol]on 07-10-2024 Glucose [Mass/Vol] 138 mg/dL High 74 - 99 mg/dL [facility] Interpretation and review of laboratory results Abnormal [facility] Glucose [Mass/Vol] 138 mg/dL High 74-[address] [facility] Comment on above: Performed By: #### 5 902-2 #### BETH FOSTER ([id number]) [facility] ([facility]) [address] [place] [address] 60889 Glucose [Mass/Vol] 139 mg/dL High 74 - 99 mg/dL [facility] Interpretation and review of laboratory results Abnormal [facility] Glucose [Mass/Vol] 139 mg/dL High 74-[address] [facility] Comment on above: Performed By: #### 5 902-2 #### BETH FOSTER ([id number]) [facility] ([facility]) [address] [place] [address] Glucose [Mass/Vol] 142 mg/dL High 74 - 99 mg/dL [facility] Interpretation and review of laboratory results Abnormal [facility] Glucose [Mass/Vol] 142 mg/dL High 74-[address] [facility] Comment on above: Performed By: #### 5 902-2 #### BETH FOSTER ([id number]) [facility] ([facility]) [address] [place] [address] 12366 Glucose [Mass/Vol] 109 mg/dL High 74 - 99 mg/dL [facility] Interpretation and review of laboratory results Abnormal [facility] Glucose [Mass/Vol] 109 mg/dL High 74-[address] [facility] Comment on above: Performed By: #### 2 341-6 ####BETH FOSTER ([id number])[facility] ([facility])[address] [place] [address] 10206 Heparin unfractionated Chrom ogenic method Qn (PPP)on 07-10-2024 Interpretation and review of laboratory results Normal [facility] The therapeutic reference range for UFH may be either 0.3-0.6 IU/mL or 0.3-0.7 IU/mL based on the clinical setting for anticoagulant therapy and the associated nomogram used. For Heparin dosing guidelines based on clinical scenario and Heparin Assay results, please refer to local Pharmacy and the [facility] Guidelines for Anticoagulation Therapy available on the [facility] intranet at: [email or web address] [email or web address]_for_Antic oagu.aspx [facility] Heparin.unfractionatedon Heparin unfractionated Chromogenic method Qn (PPP) 0.3 IU/mL Normal See Comment Below for Therapeutic Ranges [facility] Comment on above: Order Comment: If bl eeding from any site at anytime. Nursing to release order.The therapeutic reference range for UFH may be either 0.3-0.6 IU/mL or 0.3-0.7 IU/mL based on the clinical setting for anticoagulant therapy and the associated nomogram used. For Heparin dosing guidelines based on clinical scenario and Heparin Assay results, please refer to local Pharmacy and the [facility] Guidelines for Anticoagulation Therapy available on the [facility] intranet at: [email or web address] [email or web address]_ [facility]_Guidelines_for_Anticoagu.aspx Performed By: #### 3 [id number] ####CAMPOS CRISTIAN ([id number])[facility] ([facility])[address] [place] [address] Laboratory - Coagulationon 0 07-10-2024 Heparin unfractionated Chromogenic method Qn (PPP) 0.3 See Comment Below for Therapeutic Ranges IU/mL [facility] MR Brain WO and W contrast I Von 07-10-2024 Interpreted By: Rony Louise, STUDY: MR BRAIN W AND WO IV CONTRAST; 07/10/2024 7:55 am INDICATION: Signs/Symptoms:TIA. COMPARISON: None. ACCESSION NUMBER(S): [id number] ORDERING CLINICIAN: GHANSHYAM KEARNS TECHNIQUE: The brain was studied in the sagittal axial and coronal planes utilizing FLAIR, T1 and T2 weighted images Following intravenous injection of gadolinium contrast, T1 weighted fat suppressed multiplanar images were also performed. FINDINGS: There is slight prominence of the cortical sulci and sylvian fissures. There is mild ventricular dilatation. There are patchy and confluence foci of abnormal signal within the periventricular and subcortical white matter bilaterally. These are compatible with minimal small vessel ischemic changes. These nonspecific findings could also be produced by a demyelinating or post inflammatory process. The visualized skull base paranasal sinuses and orbital structures are unremarkable. Diffusion weighted images and associated ADC maps of the brain demonstrate acute/subacute lacunar infarction in the left centrum semiovale with involvement of the posterior limb of the internal capsule. No associated hemorrhage or mass effect. Gradient echo T2 weighted images demonstrate a hemosiderin lined cleft in the left centrum semiovale and body of the left caudate nucleus consistent with previous hemorrhage or hemorrhagic infarction.. Following intravenous injection of there is no abnormal enhancement. There is normal contrast opacification of the dural venous sinuses. 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 Notification was initiated on 07/10/2024 at 10:22 am by Rony Louise. (-OCF-) Signed by: Rony Louise 07/10/2024 10:22 AM Dictation workstation: [id number] Rony Louise MD - 07/10/2024 Interpreted By: Rony Louise, STUDY: MR BRAIN W AND WO IV CONTRAST; 07/10/2024 7:55 am INDICATION: Signs/Symptoms:TIA. COMPARISON: None. ACCESSION NUMBER(S): [id number] ORDERING CLINICIAN: GHANSHYAM KEARNS TECHNIQUE: The brain was studied in the sagittal axial and coronal planes utilizing FLAIR, T1 and T2 weighted images Following intravenous injection of gadolinium contrast, T1 weighted fat suppressed multiplanar images were also performed. FINDINGS: There is slight prominence of the cortical sulci and sylvian fissures. There is mild ventricular dilatation. There are patchy and confluence foci of abnormal signal within the periventricular and subcortical white matter bilaterally. These are compatible with minimal small vessel ischemic changes. These nonspecific findings could also be produced by a demyelinating or post inflammatory process. The visualized skull base paranasal sinuses and orbital structures are unremarkable. Diffusion weighted images and associated ADC maps of the brain demonstrate acute/subacute lacunar infarction in the left centrum semiovale with involvement of the posterior limb of the internal capsule. No associated hemorrhage or mass effect. Gradient echo T2 weighted images demonstrate a hemosiderin lined cleft in the left centrum semiovale and body of the left caudate nucleus consistent with previous hemorrhage or hemorrhagic infarction.. Following intravenous injection of there is no abnormal enhancement. There is normal contrast opacification of the dural venous sinuses. 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 Notification was initiated on 07/10/2024 at 10:22 am by Rony Louise. (-OCF-) Signed by: Rony Louise 07/10/2024 10:22 AM Dictation workstation: [id number] [facility] Work Phone: Radiology Study observation (narrative) [facility] Work Phone: [phone] MR Brain WO and W contrast I VOrdered By: Rony Louise on 07-10-2024 [facility] Work Phone: No Panel Informationon 07-10 Atrial Rate 86 BPM [facility] Work Phone: [phone] P Blackburn 54 degrees [facility] Work Phone: [phone] P Offset 192 ms [facility] Work Phone: [phone] P Onset 135 ms [facility] Work Phone: [phone] [place] Interval 158 ms [facility] Work Phone: [phone] Q Onset 214 ms [facility] Work Phone: [phone] QRS Count 14 beats [facility] Work Phone: [phone] QRS Duration 92 ms [facility] Work Phone: [phone] QT Interval 366 ms [facility] Work Phone: [phone] QTC Calculation(Bazett) 437 ms [facility] Work Phone: [phone] QTC Fredericia 412 ms [facility] Work Phone: R Blackburn 37 degrees [facility] Work Phone: T Blackburn 25 degrees [facility] Work Phone: T Offset 397 ms [facility] Work Phone: Ventricular Rate 86 BPM [facility] Work Phone: Normal sinus rhythm Normal ECG When compared with ECG of 05-JUL-2024 15:13, (unconfirmed) Sinus rhythm has replaced Atrial fibrillation Right bundle branch block is no longer Present Confirmed by Emanuel Giraldo ([id number]) on 07/10/2024 6:08:35 PM Emanuel Staley MD - 07/10/2024 Normal sinus rhythm Normal ECG When compared with ECG of 05-JUL-2024 15:13, (unconfirmed) Sinus rhythm has replaced Atrial fibrillation Right bundle branch block is no longer Present Confirmed by Emanuel Giraldo ([id number]) on 07/10/2024 6:08:35 PM [facility] Work Phone: [facility] Work Phone: TRANSTHORACIC ECHO (TTE) COM PLETEon 07-10-2024 TRANSTHORACIC ECHO (TTE) [place] [address] ext-[phone], TRANSTHORACIC ECHOCARDIOGRAM REPORT Patient Name: CISCO Quinones Physician: [id number] Jay Alves MD Study Date: 07/10/2024 Ordering Provider: [id number] GHANSHYAM KEARNS MRN/PID: [id number] Fellow: Nurse: Lisset Contreras RN Date of /Age: 1 1955 / 68 years Bottom Cementer: FABIAN Alvarez RVT Gender: M Additional Staff: Height: 165.10 cm Admit Date: 07/07/2024 Weight: 85.28 kg Admission Status: Inpatient - Routine BSA / BMI: 1.93 m2 / 31.29 kg/m2 Department Location: [address] Blood Pressure: 131 /81 mmHg Study Type: TRANSTHORACIC ECHO (TTE) COMPLETE Diagnosis/ICD: Elevated Troponin-R79.89; Transient cerebral ischemic attack, unspecified (NOT on LCD)-G45.9 Indication: Transischemic Attack CPT Codes: Echo Complete w Full Doppler-[id number] Patient History: Pertinent History: No previous echo. Study Detail: The following Echo studies were performed: 2D, M-Mode, Doppler and color flow. Definity used as a contrast agent for endocardial border definition and agitated saline used as a contrast agent for intraseptal flow evaluation. Total contrast used for this procedure was 2 mL via IV push. The patient was awake. PHYSICIAN INTERPRETATION: Left Ventricle: The left ventricular systolic function is normal, with a visually estimated ejection fraction of 60-65%. There are no regional wall motion abnormalities. The left ventricular cavity size is normal. There is mild concentric left ventricular hypertrophy. Spectral Doppler shows an impaired relaxation pattern of left ventricular diastolic filling. Left Atrium: The left atrium is normal in size. Right Ventricle: The right ventricle is normal in size. There is normal right ventricular global systolic function. Right Atrium: The right atrium is normal in size. Aortic Valve: The aortic valve is trileaflet. The aortic valve dimensionless index is 0.70. There is no evidence of aortic valve regurgitation. The peak instantaneous gradient of the aortic valve is 10.5 mmHg. The mean gradient of the aortic valve is 5.0 mmHg. Mitral Valve: The mitral valve is normal in structure. There is trace mitral valve regurgitation. Calcified nodule on poterior leaflet of mitral valve. Tricuspid Valve: The tricuspid valve is structurally normal. No evidence of tricuspid regurgitation. Pulmonic Valve: The pulmonic valve is not well visualized. There is mild pulmonic valve regurgitation. Pericardium: There is no pericardial effusion noted. Aorta: The aortic root is normal. CONCLUSIONS: 1. The left ventricular systolic function is normal, with a visually estimated ejection fraction of 60-65%. 2. Spectral Doppler shows an impaired relaxation pattern of left ventricular diastolic filling. 3. There is normal right ventricular global systolic function. 4. Bubble study is positive for a right to left shunt, suggestive of a patent foramen ovale. QUANTITATIVE DATA SUMMARY: 2D MEASUREMENTS: Normal Ranges: Ao Root d: 2.80 cm (2.0-3.7cm) LAs: 3.60 cm (2.7-4.0cm) IVSd: 1.19 cm (0.6-1.1cm) LVPWd: 1.13 cm (0.6-1.1cm) LVIDd: 3.21 cm (3.9-5.9cm) LVIDs: 2.34 cm LV Mass Index: 59.1 g/m2 LV % FS 27.1 % LA VOLUME: Normal Ranges: LA Vol A4C: 42.4 ml (22+/-6mL/m2) LA Vol A2C: 46.8 ml LA Vol BP: 51.8 ml LA Vol Index A4C: 22.0ml/m2 LA Vol Index A2C: 24.3 ml/m2 LA Vol Index BP: 26.9 ml/m2 LA Area A4C: 17.7 cm2 LA Area A2C: 16.0 cm2 LA Major Blackburn A4C: 6.3 cm LA Major Blackburn A2C: 4.6 cm LA Volume Index: 23.6 ml/m2 LA Vol A4C: 43.7 ml LA Vol A2C: 45.6 ml LA Vol Index BSA: 23.2 ml/m2 M-MODE MEASUREMENTS: Normal Ranges: AoV Exc: 2.10 cm (1.5-2.5cm) AORTA MEASUREMENTS: Normal Ranges: AoV Exc: 2.10 cm (1.5-2.5cm) LV SYSTOLIC FUNCTION BY 2D PLANIMETRY (MOD): Normal Ranges: EF-A4C View: 72 % (>=55%) EF-A2C View: 76 % EF-Biplane: 72 % EF-Visual: 63 % LV EF Reported: 63 % LV DIASTOLIC FUNCTION: Normal Ranges: MV Peak E: 0.73 m/s (0.7-1.2 m/s) MV Peak A: 0.99 m/s (0.42-0.7 m/s) E/A Ratio: 0.74 (1.0-2.2) MV e' 0.075 m/s (>8.0) MV lateral e' 0.10 m/s MV medial e' 0.05 m/s E/e' Ratio: 9.75 (<8.0) MITRAL VALVE: Normal Ranges: MV DT: 261 msec (150-240msec) MITRAL INSUFFICIENCY: Normal Ranges: MR Vmax: 320.00 cm/s AORTIC VALVE: Normal Ranges: AoV Vmax: 1.62 m/s (<=1.7m/s) AoV Peak P.5 mmHg (<20mmHg) AoV Mean P.0 mmHg (1.7-11.5mmHg) LVOT Max Mena: 1.25 m/s (<=1.1m/s) AoV VTI: 31.50 cm (18-25cm) LVOT VTI: 22.10 cm LVOT Diameter: 2.10 cm (1.8-2.4cm) AoV Area, VTI: 2.43 cm2 (2.5-5.5cm2) AoV Area,Vmax: 2.67 cm2 (2.5-4.5cm2) AoV Dimensionless Index: 0.70 RIGHT VENTRICLE: RV Basal 3.80 cm RV Mid 2.59 cm RV Major 7.2 cm TAPSE: 16.0 mm TRICUSPID VALVE/RVSP: Normal Ranges: Peak TR Velocity: 2.42 m/s RV Syst Pressure: 26.4 mmHg (< 30mmHg) PULMONIC VALVE: Normal Ra (more content not included)... Normal [facility] US Heart TransthoracicOrdere d By: Jay Alves on 07-10-2024 Aortic Valve Area by Continuity of Peak Velocity 2.67 cm2 [facility] Work Phone: Aortic Valve Area by Continuity of VTI 2.43 cm2 [facility] Work Phone: 39 AV mn grad 5.0 mmHg [facility] Work Phone: 39 AV pk grad 10.5 mmHg [facility] Work Phone: 39 AV pk mena 1.62 m/s [facility] Work Phone: 39 LA vol index A/L 26.9 ml/m2 [facility] Work Phone: 39 LV A4C EF 71.7 [facility] Work Phone: 39 LV Biplane EF 72 % [facility] Work Phone: 39 LV EF 63 % [facility] Work Phone: LVIDd 3.21 cm [facility] Work Phone: [phone] LVOT diam 2.10 cm [facility] Work Phone: [phone] MV E/A ratio 0.74 [facility] Work Phone: [phone] RVSP 26.4 mmHg [facility] Work Phone: [phone] Tricuspid annular plane systolic excursion 1.6 cm [facility] Work Phone: [phone] [facility] Work Phone: [phone] [place] [address] [phone], TRANSTHORACIC ECHOCARDIOGRAM REPORT Patient Name: CISCO Quinones Physician: [id number] Jay Alves MD Study Date: 07/10/2024 Ordering Provider: [id number] GHANSHYAM KEARNS MRN/PID: [id number] Fellow: Nurse: Lisset Contreras RN Date of /Age: 1 1955 / 68 years Bottom Cementer: FABIAN Alvarez RVT Gender: M Additional Staff: Height: 165.10 cm Admit Date: 07/07/2024 Weight: 85.28 kg Admission Status: Inpatient - Routine BSA / BMI: 1.93 m2 / 31.29 kg/m2 Department Location: [address] Blood Pressure: 131 /81 mmHg Study Type: TRANSTHORACIC ECHO (TTE) COMPLETE Diagnosis/ICD: Elevated Troponin-R79.89; Transient cerebral ischemic attack, unspecified (NOT on LCD)-G45.9 Indication: Transischemic Attack CPT Codes: Echo Complete w Full Doppler-03636 Patient History: Pertinent History: No previous echo. Study Detail: The following Echo studies were performed: 2D, M-Mode, Doppler and color flow. Definity used as a contrast agent for endocardial border definition and agitated saline used as a contrast agent for intraseptal flow evaluation. Total contrast used for this procedure was 2 mL via IV push. The patient was awake. PHYSICIAN INTERPRETATION: Left Ventricle: The left ventricular systolic function is normal, with a visually estimated ejection fraction of 60-65%. There are no regional wall motion abnormalities. The left ventricular cavity size is normal. There is mild concentric left ventricular hypertrophy. Spectral Doppler shows an impaired relaxation pattern of left ventricular diastolic filling. Left Atrium: The left atrium is normal in size. Right Ventricle: The right ventricle is normal in size. There is normal right ventricular global systolic function. Right Atrium: The right atrium is normal in size. Aortic Valve: The aortic valve is trileaflet. The aortic valve dimensionless index is 0.70. There is no evidence of aortic valve regurgitation. The peak instantaneous gradient of the aortic valve is 10.5 mmHg. The mean gradient of the aortic valve is 5.0 mmHg. Mitral Valve: The mitral valve is normal in structure. There is trace mitral valve regurgitation. Calcified nodule on poterior leaflet of mitral valve. Tricuspid Valve: The tricuspid valve is structurally normal. No evidence of tricuspid regurgitation. Pulmonic Valve: The pulmonic valve is not well visualized. There is mild pulmonic valve regurgitation. Pericardium: There is no pericardial effusion noted. Aorta: The aortic root is normal. CONCLUSIONS: 1. The left ventricular systolic function is normal, with a visually estimated ejection fraction of 60-65%. 2. Spectral Doppler shows an impaired relaxation pattern of left ventricular diastolic filling. 3. There is normal right ventricular global systolic function. 4. Bubble study is positive for a right to left shunt, suggestive of a patent foramen ovale. QUANTITATIVE DATA SUMMARY: 2D MEASUREMENTS: Normal Ranges: Ao Root d: 2.80 cm (2.0-3.7cm) LAs: 3.60 cm (2.7-4.0cm) IVSd: 1.19 cm (0.6-1.1cm) LVPWd: 1.13 cm (0.6-1.1cm) LVIDd: 3.21 cm (3.9-5.9cm) LVIDs: 2.34 cm LV Mass Index: 59.1 g/m2 LV % FS 27.1 % LA VOLUME: Normal Ranges: LA Vol A4C: 42.4 ml (22+/-6mL/m2) LA Vol A2C: 46.8 ml LA Vol BP: 51.8 ml LA Vol Index A4C: 22.0ml/m2 LA Vol Index A2C: 24.3 ml/m2 LA Vol Index BP: 26.9 ml/m2 LA Area A4C: 17.7 cm2 LA Area A2C: 16.0 cm2 LA Major Blackburn A4C: 6.3 cm LA Major Blackburn A2C: 4.6 cm LA Volume Index: 23.6 ml/m2 LA Vol A4C: 43.7 ml LA Vol A2C: 45.6 ml LA Vol Index BSA: 23.2 ml/m2 M-MODE MEASUREMENTS: Normal Ranges: AoV Exc: 2.10 cm (1.5-2.5cm) AORTA MEASUREMENTS: Normal Ranges: AoV Exc: 2.10 cm (1.5-2.5cm) LV SYSTOLIC FUNCTION BY 2D PLANIMETRY (MOD): Normal Ranges: EF-A4C View: 72 % (>=55%) EF-A2C View: 76 % EF-Biplane: 72 % EF-Visual: 63 % LV EF Reported: 63 % LV DIASTOLIC FUNCTION: Normal Ranges: MV Peak E: 0.73 m/s (0.7-1.2 m/s) MV Peak A: 0.99 m/s (0.42-0.7 m/s) E/A Ratio: 0.74 (more content not included)... Jay Velásquez MD - 07/10/2024 [place] [address] [phone], TRANSTHORACIC ECHOCARDIOGRAM REPORT Patient Name: CISCO Quinones Physician: [id number] Jay Alves MD Study Date: 07/10/2024 Ordering Provider: [id number] GHANSHYAM KEARNS MRN/PID: [id number] Fellow: Nurse: Lisset Contreras RN Date of /Age: 1 1955 / 68 years Bottom Cementer: FABIAN Alvarez RVT Gender: M Additional Staff: Height: 165.10 cm Admit Date: 07/07/2024 Weight: 85.28 kg Admission Status: Inpatient - Routine BSA / BMI: 1.93 m2 / 31.29 kg/m2 Department Location: [address] Blood Pressure: 131 /81 mmHg Study Type: TRANSTHORACIC ECHO (TTE) COMPLETE Diagnosis/ICD: Elevated Troponin-R79.89; Transient cerebral ischemic attack, unspecified (NOT on LCD)-G45.9 Indication: Transischemic Attack CPT Codes: Echo Complete w Full Doppler-[id number] Patient History: Pertinent History: No previous echo. Study Detail: The following Echo studies were performed: 2D, M-Mode, Doppler and color flow. Definity used as a contrast agent for endocardial border definition and agitated saline used as a contrast agent for intraseptal flow evaluation. Total contrast used for this procedure was 2 mL via IV push. The patient was awake. PHYSICIAN INTERPRETATION: Left Ventricle: The left ventricular systolic function is normal, with a visually estimated ejection fraction of 60-65%. There are no regional wall motion abnormalities. The left ventricular cavity size is normal. There is mild concentric left ventricular hypertrophy. Spectral Doppler shows an impaired relaxation pattern of left ventricular diastolic filling. Left Atrium: The left atrium is normal in size. Right Ventricle: The right ventricle is normal in size. There is normal right ventricular global systolic function. Right Atrium: The right atrium is normal in size. Aortic Valve: The aortic valve is trileaflet. The aortic valve dimensionless index is 0.70. There is no evidence of aortic valve regurgitation. The peak instantaneous gradient of the aortic valve is 10.5 mmHg. The mean gradient of the aortic valve is 5.0 mmHg. Mitral Valve: The mitral valve is normal in structure. There is trace mitral valve regurgitation. Calcified nodule on poterior leaflet of mitral valve. Tricuspid Valve: The tricuspid valve is structurally normal. No evidence of tricuspid regurgitation. Pulmonic Valve: The pulmonic valve is not well visualized. There is mild pulmonic valve regurgitation. Pericardium: There is no pericardial effusion noted. Aorta: The aortic root is normal. CONCLUSIONS: 1. The left ventricular systolic function is normal, with a visually estimated ejection fraction of 60-65%. 2. Spectral Doppler shows an impaired relaxation pattern of left ventricular diastolic filling. 3. There is normal right ventricular global systolic function. 4. Bubble study is positive for a right to left shunt, suggestive of a patent foramen ovale. QUANTITATIVE DATA SUMMARY: 2D MEASUREMENTS: Normal Ranges: Ao Root d: 2.80 cm (2.0-3.7cm) LAs: 3.60 cm (2.7-4.0cm) IVSd: 1.19 cm (0.6-1.1cm) LVPWd: 1.13 cm (0.6-1.1cm) LVIDd: 3.21 cm (3.9-5.9cm) LVIDs: 2.34 cm LV Mass Index: 59.1 g/m2 LV % FS 27.1 % LA VOLUME: Normal Ranges: LA Vol A4C: 42.4 ml (22+/-6mL/m2) LA Vol A2C: 46.8 ml LA Vol BP: 51.8 ml LA Vol Index A4C: 22.0ml/m2 LA Vol Index A2C: 24.3 ml/m2 LA Vol Index BP: 26.9 ml/m2 LA Area A4C: 17.7 cm2 LA Area A2C: 16.0 cm2 LA Major Blackburn A4C: 6.3 cm LA Major Blackburn A2C: 4.6 cm LA Volume Index: 23.6 ml/m2 LA Vol A4C: 43.7 ml LA Vol A2C: 45.6 ml LA Vol Index BSA: 23.2 ml/m2 M-MODE MEASUREMENTS: Normal Ranges: AoV Exc: 2.10 cm (1.5-2.5cm) AORTA MEASUREMENTS: Normal Ranges: AoV Exc: 2.10 cm (1.5-2.5cm) LV SYSTOLIC FUNCTION BY 2D PLANIMETRY (MOD): Normal Ranges: EF-A4C View: 72 % (>=55%) EF-A2C View: 76 % EF-Biplane: 72 % EF-Visual: 63 % LV EF Reported: 63 % LV DIASTOLIC FUNCTION: Normal Ranges: MV Peak E: 0.73 m/s (0.7-1.2 m/s) MV Peak A: 0.99 m/s (0.42-0.7 m/s) E/A Ratio: 0.74 (1.0-2.2) MV e' 0.075 m/s (>8.0) MV lateral e' 0.10 m/s MV medial e' 0.05 m/s E/e' Ratio: 9.75 (<8.0) MITRAL VALVE: Normal Ranges: MV DT: 261 msec (150-240msec) MITRAL INSUFFICIENCY: Normal Ranges: MR Vmax: 320.00 cm/s AORTIC VALVE: Normal Ranges: AoV Vmax: 1.62 m/s (<=1.7m/s) AoV Peak P.5 mmHg (<20mmHg) AoV Mean P.0 mmHg (1.7-11.5mmHg) LVOT Max Mena: 1.25 m/s (<=1.1m/s) AoV VTI: 31.50 cm (18-25cm) LVOT VTI: 22.10 cm LVOT Diameter: 2.10 cm (1.8-2.4cm) AoV Area, VTI: 2.43 cm2 (2.5-5.5cm2) AoV Area,Vmax: 2.67 cm2 (2.5-4.5cm2) AoV Dimensionless Index: 0.70 RIGHT VENTRICLE: RV Basal 3.80 cm RV Mid 2.59 cm RV Major 7.2 cm TAPSE: 16.0 mm TRICUSPID VALVE/RVSP (more content not included)... [facility] Work Phone: Basic metabolic 2000 panelon 07-09-2024 Anion gap [Moles/Vol] 12 mmol/L 10 - 2 0 mmol/L [facility] Calcium [Mass/Vol] 8.6 mg/dL 8.6 - 10. 3 mg/dL [facility] Chloride [Moles/Vol] 107 mmol/L 98 - 10 7 mmol/L [facility] CO2 [Moles/Vol] 23 mmol/L 21 - 32 mmol/L [facility] Creatinine [Mass/Vol] 1.11 mg/dL 0.50 - 1.30 mg/dL [facility] GFR/1.73 sq M.predicted among non-blacks MDRD (S/P/Bld) [Vol rate/Area] 72 mL/min/{1.73_m2} - PINF [facility] Comment on above: Calculations of therese mated GFR are performed using the 2020 CKD-EPI Study Refit equation without the race variable for the IDMS-Traceable creatinine methods. https://jasn.asnjournals.org/content/early/ASN.75859 26795 Glucose [Mass/Vol] 114 mg/dL High 74 - 99 mg/dL [facility] Interpretation and review of laboratory results Abnormal [facility] Potassium [Moles/Vol] 3.8 mmol/L 3.5 - 5.3 mmol/L [facility] Sodium [Moles/Vol] 138 mmol/L 136 - 145 mmol/L [facility] Urea nitrogen [Mass/Vol] 12 mg/dL 6 - 23 mg/dL [facility] Anion gap [Moles/Vol] 12 mmol/L Normal 10-20 [facility] Comment on above: Performed By: #### 2 4321-2 ####BETH FOSTER ([id number])[facility] ([facility])[address] [place] [id number] Calcium [Mass/Vol] 8.6 mg/dL Normal 8.6-10.[address] [facility] Comment on above: Performed By: #### 2 4321-2 ####BETH FOSTER ([id number])[facility] ([facility])[address] [place] [id number] Chloride [Moles/Vol] 107 mmol/L Normal 98-107 [facility] Comment on above: Performed By: #### 2 4321-2 ####BETH FOSTER ([id number])[facility] ([facility])[address] [place] [address] 82327 CO2 [Moles/Vol] 23 mmol/L Normal 21-32 [facility] Comment on above: Performed By: #### 2 4321-2 ####BETH FOSTER ([id number])[facility] ([facility])[address] [place] [address] 52611 Creatinine [Mass/Vol] 1.11 mg/dL Normal 0.50-1.30 [facility] Comment on above: Performed By: #### 2 4321-2 ####BETH FOSTER ([id number])[facility] ([facility])[address] [place] [address] 45156 Glomerular filtration rate/1.73 sq M.predicted 72 mL/min/1.73m*2 Normal >60 [facility] Comment on above: Result Comment: Calc ulations of estimated GFR are performed using the 2020 CKD-EPI Study Refit equation without the race variable for the IDMS-Traceable creatinine methods. https://jasn.asnjournals.org/content//ASN.03066 96369 Performed By: #### 2 4321-2 ####BETH FOSTER ([id number])[facility] ([facility])[address] [place] [address] 58435 Glucose [Mass/Vol] 114 mg/dL High 74-[address] [facility] Comment on above: Performed By: #### 2 4321-2 ####BETH FOSTER ([id number])[facility] ([facility])[address] [place] [address] 71280 Potassium [Moles/Vol] 3.8 mmol/L Normal 3.5-5.3 [facility] Comment on above: Performed By: #### 2 4321-2 ####BETH FOSTER ([id number])[facility] ([facility])[address] [place] [address] 50605 Sodium [Moles/Vol] 138 mmol/L Normal 136-[address] [facility] Comment on above: Performed By: #### 2 4321-2 ####BETH FOSTER ([id number])[facility] ([facility])[address] [place] [address] 85522 Urea nitrogen [Mass/Vol] 12 mg/dL Normal 6-23 [facility] Comment on above: Performed By: #### 2 4321-2 ####BETH FOSTER ([id number])[facility] ([facility])[address] [place] [address] 22290 CBC panel Auto (Bld)on 07-09 Erythrocyte distribution width (RBC) [Ratio] 13.2 % 11.5 - 14.5 % [facility] Hematocrit (Bld) [Volume fraction] 44.6 % 41.0 - 52.0 % [facility] Hemoglobin (Bld) [Mass/Vol] 14.8 g/dL 13.5 - 17.5 g/dL [facility] Interpretation and review of laboratory results Normal [facility] MCH (RBC) [Entitic mass] 31.5 pg 26.0 - 34.0 pg [facility] MCHC (RBC) [Mass/Vol] 33.2 g/dL 32.0 - 36.0 g/dL [facility] MCV (RBC) [Entitic vol] 95 fL 80 - 100 fL [facility] Nucleated RBC/100 WBC (Bld) [Ratio] 0.0 % [facility] Platelets (Bld) [#/Vol] 225 10*3/uL [facility] RBC (Bld) [#/Vol] 4.70 10*6/uL [facility] WBC (Bld) [#/Vol] 6.1 10*3/uL [facility] Erythrocyte distribution width (RBC) [Ratio] 13.2 % Normal 11.5-14.5 [facility] Comment on above: Performed By: #### 5 7021-8 #### BETH FOSTER ([id number]) [facility] ([facility]) [address] [place] [address] 09885 Hematocrit (Bld) [Volume fraction] 44.6 % Normal 41.0-52.0 [facility] Comment on above: Performed By: #### 5 7021-8 #### BETH FOSTER ([id number]) [facility] ([facility]) [address] [place] [address] 58551 Hemoglobin (Bld) [Mass/Vol] 14.8 g/dL Normal 13.5-17.5 [facility] Comment on above: Performed By: #### 5 7021-8 #### BETH FOSTER ([id number]) [facility] ([facility]) [facility] [place] [address] MCH (RBC) [Entitic mass] 31.5 pg Normal 26.0-34.0 [facility] Comment on above: Performed By: #### 5 7021-8 #### BETH FOSTER ([id number]) [facility] ([facility]) [address] [place] [address] 16767 MCHC (RBC) [Mass/Vol] 33.2 g/dL Normal 32.0-36.0 [facility] Comment on above: Performed By: #### 5 7021-8 #### BETH FOSTER ([id number]) [facility] ([facility]) [address] [place] [address] MCV (RBC) [Entitic vol] 95 fL Normal 80-100 [facility] Comment on above: Performed By: #### 5 7021-8 #### BETH FOSTER ([id number]) [facility] ([facility]) [address] [place] [address] Nucleated RBC/100 WBC (Bld) [Ratio] 0.0 /100 WBCs Normal 0.0-0.0 [facility] Comment on above: Performed By: #### 5 7021-8 #### BETH FOSTER ([id number]) [facility] ([facility]) [address] [place] [address] 29698 Platelets (Bld) [#/Vol] 225 x10*3/uL Normal 150-450 [facility] Comment on above: Performed By: #### 5 7021-8 #### BETH FOSTER ([id number]) [facility] ([facility]) [address] [place] [address] 14918 RBC (Bld) [#/Vol] 4.70 x10*6/uL Normal 4.50-5.90 [facility] Comment on above: Performed By: #### 5 7021-8 #### BETH FOSTER ([id number]) [facility] ([facility]) [address] [place] [address] 45735 WBC (Bld) [#/Vol] 6.1 x10*3/uL Normal 4.4-11.3 [facility] Comment on above: Performed By: #### 5 7021-8 #### BETH FOSTER ([id number]) [facility] ([facility]) [address] [place], [place] [address] CT HEAD WO IV CONTRASTon CT HEAD WO IV CONTRAST Interpreted By: Peter Lynn, STUDY: CT HEAD WO IV CONTRAST; 07/09/2024 11:39 am INDICATION: Signs/Symptoms:Increase d weakness and facial droop on right. COMPARISON: 07/07/2024 reporting no acute findings. ACCESSION NUMBER(S): [id number] ORDERING CLINICIAN: CANDELARIO MON[place]NA TECHNIQUE: Noncontrast axial CT scan of head was performed. Angled reformats in brain and bone windows were generated. The images were reviewed in bone, brain, blood and soft tissue windows. FINDINGS: No acute edema. No acute hemorrhage. No mass effect. Ventricular system is normal for age. No extra-axial fluid collections. Orbits are normal. Paranasal sinuses are clear. Low-attenuation lesion of the left periventricular white matter measuring 8 mm in size stable since most recent examination favoring lacunar infarct either subacute or chronic given the density value. Consider MRI examination if symptoms persist. IMPRESSION: Similar findings to most recent examination 07/07/2024. No new findings. Signed by: Peter Lynn 07/09/2024 12:06 PM Dictation workstation: [id number] [facility] CT Head WO contraston 2023 Similar findings to most recent examination 07/07/2024. No new findings. Signed by: Peter Lynn 07/09/2024 12:06 PM Dictation workstation: [id number] [facility]ODAL Interpreted By: Peter Lynn, STUDY: CT HEAD WO IV CONTRAST; 07/09/2024 11:39 am INDICATION: Signs/Symptoms:Increase d weakness and facial droop on right. COMPARISON: 07/07/2024 reporting no acute findings. ACCESSION NUMBER(S): [id number] ORDERING CLINICIAN: CANDELARIO MONTANA TECHNIQUE: Noncontrast axial CT scan of head was performed. Angled reformats in brain and bone windows were generated. The images were reviewed in bone, brain, blood and soft tissue windows. FINDINGS: No acute edema. No acute hemorrhage. No mass effect. Ventricular system is normal for age. No extra-axial fluid collections. Orbits are normal. Paranasal sinuses are clear. Low-attenuation lesion of the left periventricular white matter measuring 8 mm in size stable since most recent examination favoring lacunar infarct either subacute or chronic given the density value. Consider MRI examination if symptoms persist. [facility] MMODAL Peter Lynn MD - 07/09/2024 Interpreted By: Peter Lynn, STUDY: CT HEAD WO IV CONTRAST; 07/09/2024 11:39 am INDICATION: Signs/Symptoms:Increase d weakness and facial droop on right. COMPARISON: 07/07/2024 reporting no acute findings. ACCESSION NUMBER(S): [id number] ORDERING CLINICIAN: CANDELARIO MONTANA TECHNIQUE: Noncontrast axial CT scan of head was performed. Angled reformats in brain and bone windows were generated. The images were reviewed in bone, brain, blood and soft tissue windows. FINDINGS: No acute edema. No acute hemorrhage. No mass effect. Ventricular system is normal for age. No extra-axial fluid collections. Orbits are normal. Paranasal sinuses are clear. Low-attenuation lesion of the left periventricular white matter measuring 8 mm in size stable since most recent examination favoring lacunar infarct either subacute or chronic given the density value. Consider MRI examination if symptoms persist. IMPRESSION: Similar findings to most recent examination 07/07/2024. No new findings. Signed by: Peter Lynn 07/09/2024 12:06 PM Dictation workstation: [id number] [facility] Work Phone: Radiology Study observation (narrative) [facility] Work Phone: CT Head WO contrastOrdered B y: Peter Lynn on 07-09-2024 [facility] Work Phone: Glucose Test strip manual (B ld) [Mass/Vol]on 07-09-2024 Glucose [Mass/Vol] 130 mg/dL High 74 - 99 mg/dL [facility] Interpretation and review of laboratory results Abnormal [facility] Glucose [Mass/Vol] 130 mg/dL High 74-[address] [facility] Comment on above: Performed By: #### 2 341-6 ####CAMPOS CRISTIAN ([id number])[facility] ([facility])[address] [place] [address] Glucose [Mass/Vol] 131 mg/dL High 74 - 99 mg/dL [facility] Interpretation and review of laboratory results Abnormal [facility] Glucose [Mass/Vol] 131 mg/dL High 74-[address] [facility] Comment on above: Performed By: #### 2 341-6 ####BETH FOSTER ([id number])[facility] ([facility])[address] [place] [address] 36409 Glucose [Mass/Vol] 108 mg/dL High 74 - 99 mg/dL [facility] Interpretation and review of laboratory results Abnormal [facility] Glucose [Mass/Vol] 108 mg/dL High 74-[address] [facility] Comment on above: Performed By: #### 2 341-6 ####BETH FOSTER ([id number])[facility] ([facility])[address] [place] [address] 45711 Glucose [Mass/Vol] 133 mg/dL High 74 - 99 mg/dL [facility] Interpretation and review of laboratory results Abnormal [facility] Glucose [Mass/Vol] 133 mg/dL High 74-[address] [facility] Comment on above: Performed By: #### 2 341-6 ####BETH FOSTER ([id number])[facility] ([facility])[address] [place] [address] 60163 Heparin unfractionated Chrom ogenic method Qn (PPP)on 07-09-2024 Interpretation and review of laboratory results Normal [facility] The therapeutic reference range for UFH may be either 0.3-0.6 IU/mL or 0.3-0.7 IU/mL based on the clinical setting for anticoagulant therapy and the associated nomogram used. For Heparin dosing guidelines based on clinical scenario and Heparin Assay results, please refer to local Pharmacy and the [facility] Guidelines for Anticoagulation Therapy available on the [facility] intranet at: [email or web address] [facility] Heparin.unfractionatedon Heparin unfractionated Chromogenic method Qn (PPP) 0.3 IU/mL Normal See Comment Below for Therapeutic Ranges [facility] Comment on above: Order Comment: When two (2) consecutive Heparin Assay, UFH results obtained 4 hours apart are therapeutic, obtain STAT Heparin Assay, UFH every a.m. Nursing to release order.The therapeutic reference range for UFH may be either 0.3-0.6 IU/mL or 0.3-0.7 IU/mL based on the clinical setting for anticoagulant therapy and the associated nomogram used. For Heparin dosing guidelines based on clinical scenario and Heparin Assay results, please refer to local Pharmacy and the [facility] Guidelines for Anticoagulation Therapy available on the [facility] intranet at: [email or web address] Performed By: #### 5 7021-8 #### CAMPOS CRISTIAN ([id number]) [facility] ([facility]) [address] [place] [address] Laboratory - Coagulationon 0 07-09-2024 Heparin unfractionated Chromogenic method Qn (PPP) 0.3 See Comment Below for Therapeutic Ranges IU/mL [facility] Basic metabolic 2000 panelon 07-08-2024 Anion gap [Moles/Vol] 13 mmol/L 10 - 2 0 mmol/L [facility] Calcium [Mass/Vol] 8.7 mg/dL 8.6 - 10. 3 mg/dL [facility] Chloride [Moles/Vol] 106 mmol/L 98 - 10 7 mmol/L [facility] CO2 [Moles/Vol] 22 mmol/L 21 - 32 mmol/L [facility] Creatinine [Mass/Vol] 1.11 mg/dL 0.50 - 1.30 mg/dL [facility] GFR/1.73 sq M.predicted among non-blacks MDRD (S/P/Bld) [Vol rate/Area] 72 mL/min/{1.73_m2} - PINF [facility] Comment on above: Calculations of therese mated GFR are performed using the 2020 CKD-EPI Study Refit equation without the race variable for the IDMS-Traceable creatinine methods. https://jasn.asnjournals.org/content//ASN.97018 08987 Glucose [Mass/Vol] 113 mg/dL High 74 - 99 mg/dL [facility] Potassium [Moles/Vol] 3.7 mmol/L 3.5 - 5.3 mmol/L [facility] Sodium [Moles/Vol] 137 mmol/L 136 - 145 mmol/L [facility] Urea nitrogen [Mass/Vol] 20 mg/dL 6 - 23 mg/dL [facility] Anion gap [Moles/Vol] 13 mmol/L Normal 10-20 [facility] Comment on above: Performed By: #### 5 7021-8 #### BETH FOSTER ([id number]) [facility] ([facility]) [address] [place] [address] 97989 Calcium [Mass/Vol] 8.7 mg/dL Normal 8.6-10.[address] [facility] Comment on above: Performed By: #### 5 7021-8 #### BETH FOSTER ([id number]) [facility] ([facility]) [address] [place] [address] 18456 Chloride [Moles/Vol] 106 mmol/L Normal 98-107 [facility] Comment on above: Performed By: #### 5 7021-8 #### BETH FOSTER ([id number]) [facility] ([facility]) [address] [place] [address] 14915 CO2 [Moles/Vol] 22 mmol/L Normal 21-32 [facility] Comment on above: Performed By: #### 5 7021-8 #### BETH FOSTER ([id number]) [facility] ([facility]) [address] [place] [address] 92198 Creatinine [Mass/Vol] 1.11 mg/dL Normal 0.50-1.30 [facility] Comment on above: Performed By: #### 5 7021-8 #### BETH FOSTER ([id number]) [facility] ([facility]) [address] [place] [address] 50608 Glomerular filtration rate/1.73 sq M.predicted 72 mL/min/1.73m*2 Normal >60 [facility] Comment on above: Result Comment: Calc ulations of estimated GFR are performed using the 2020 CKD-EPI Study Refit equation without the race variable for the IDMS-Traceable creatinine methods. https://jasn.asnjournals.org/content//ASN.61975 53727 Performed By: #### 5 7021-8 #### BETH FOSTER ([id number]) [facility] ([facility]) [address] [place] [address] 81875 Glucose [Mass/Vol] 113 mg/dL High 74-[address] [facility] Comment on above: Performed By: #### 5 7021-8 #### BETH FOSTER ([id number]) [facility] ([facility]) [address] [place] [address] 81258 Potassium [Moles/Vol] 3.7 mmol/L Normal 3.5-5.3 [facility] Comment on above: Performed By: #### 5 7021-8 #### BETH FOSTER ([id number]) [facility] ([facility]) [address] [place] [address] 91588 Sodium [Moles/Vol] 137 mmol/L Normal 136-[address] [facility] Comment on above: Performed By: #### 5 7021-8 #### BETH FOSTER ([id number]) [facility] ([facility]) [address] [place] [address] 01009 Urea nitrogen [Mass/Vol] 20 mg/dL Normal 6-23 [facility] Comment on above: Performed By: #### 5 7021-8 #### BETH FOSTER ([id number]) [facility] ([facility]) [address] [place] [address] 15417 CBC panel Auto (Bld)on 07-08 Erythrocyte distribution width (RBC) [Ratio] 13.1 % 11.5 - 14.5 % [facility] Hematocrit (Bld) [Volume fraction] 41.2 % 41.0 - 52.0 % [facility] Hemoglobin (Bld) [Mass/Vol] 13.6 g/dL 13.5 - 17.5 g/dL [facility] Interpretation and review of laboratory results Abnormal [facility] MCH (RBC) [Entitic mass] 31.6 pg 26.0 - 34.0 pg [facility] MCHC (RBC) [Mass/Vol] 33.0 g/dL 32.0 - 36.0 g/dL [facility] MCV (RBC) [Entitic vol] 96 fL 80 - 100 fL [facility] Nucleated RBC/100 WBC (Bld) [Ratio] 0.0 % [facility] Platelets (Bld) [#/Vol] 215 10*3/uL [facility] RBC (Bld) [#/Vol] 4.31 10*6/uL [facility] WBC (Bld) [#/Vol] 6.1 10*3/uL [facility] Erythrocyte distribution width (RBC) [Ratio] 13.1 % Normal 11.5-14.5 [facility] Comment on above: Performed By: #### 5 7021-8 #### BETH FOSTER ([id number]) [facility] ([facility]) [address] [place] [address] Hematocrit (Bld) [Volume fraction] 41.2 % Normal 41.0-52.0 [facility] Comment on above: Performed By: #### 5 7021-8 #### BETH FOSTER ([id number]) [facility] ([facility]) [address] [place] [address] 98192 Hemoglobin (Bld) [Mass/Vol] 13.6 g/dL Normal 13.5-17.5 [facility] Comment on above: Performed By: #### 5 7021-8 #### BETH FOSTER ([id number]) [facility] ([facility]) [address] [place] [address] 98383 MCH (RBC) [Entitic mass] 31.6 pg Normal 26.0-34.0 [facility] Comment on above: Performed By: #### 5 7021-8 #### BETH FOSTER ([id number]) [facility] ([facility]) [address] [place] [address] 63733 MCHC (RBC) [Mass/Vol] 33.0 g/dL Normal 32.0-36.0 [facility] Comment on above: Performed By: #### 5 7021-8 #### BETH FOSTER ([id number]) [facility] ([facility]) [address] [place] [address] 55363 MCV (RBC) [Entitic vol] 96 fL Normal 80-100 [facility] Comment on above: Performed By: #### 5 7021-8 #### BETH FOSTER ([id number]) [facility] ([facility]) [address] [place] [address] 98298 Nucleated RBC/100 WBC (Bld) [Ratio] 0.0 /100 WBCs Normal 0.0-0.0 [facility] Comment on above: Performed By: #### 5 7021-8 #### BETH FOSTER ([id number]) [facility] ([facility]) [address] [place] [address] 14453 Platelets (Bld) [#/Vol] 215 x10*3/uL Normal 150-450 [facility] Comment on above: Performed By: #### 5 7021-8 #### BETH FOSTER ([id number]) [facility] ([facility]) [address] [place] [address] 61546 RBC (Bld) [#/Vol] 4.31 x10*6/uL Low 4.50-5.90 [facility] Comment on above: Performed By: #### 5 7021-8 #### BETH FOSTER ([id number]) [facility] ([facility]) [address] [place] [address] 83160 WBC (Bld) [#/Vol] 6.1 x10*3/uL Normal 4.4-11.3 [facility] Comment on above: Performed By: #### 5 7021-8 #### BETH FOSTER ([id number]) [facility] ([facility]) [address] [place] [address] 09520 CTA Head vessels and Neck ve ssels WO and W contrast Sukhdev 07-08-2024 No evidence for significant stenosis of the cervical vessels. No evidence for significant stenosis or large branch vessel cutoffs of the intracranial vessels. MACRO: None Signed by: Romaine Evans 07/08/2024 1:24 AM Dictation workstation: [id number] MMODAL Interpreted By: Romaine Kim, STUDY: CT ANGIO HEAD AND NECK W AND WO IV CONTRAST; 07/08/2024 12:30 am INDICATION: Signs/Symptoms:CVA. COMPARISON: Correlation made to noncontrast head CT of 07/07/2024. ACCESSION NUMBER(S): [id number] ORDERING CLINICIAN: VIRGINIA HERNANDEZ TECHNIQUE: Unenhanced CT images of the head were obtained. Subsequently, N/A of N/A was administered intravenously and axial images of the head and neck were acquired. Coronal, sagittal, and 3-D reconstructions were provided for review. FINDINGS: CTA HEAD FINDINGS: Anterior circulation: Gaeb-hz-ohnnnbya atherosclerotic calcification in the carotid siphons without hemodynamically significant luminal narrowing. The bilateral intracranial internal carotid arteries, bilateral carotid terminals, bilateral proximal anterior and middle cerebral arteries are normal. Posterior circulation: Mild atherosclerotic calcification in the V4 segment of the left vertebral artery without significant luminal narrowing. Minor diffuse smooth narrowing of the V4 segment of the right vertebral artery distal to the PICA origin, probably representing developmental variability with or without some degree of atherosclerotic narrowing. Bilateral intracranial vertebral arteries, vertebrobasilar junction, basilar artery and proximal posterior cerebral arteries are otherwise normal. No intracranial saccular aneurysm or other abnormal intracranial enhancement. CTA NECK FINDINGS: Right carotid vessels: The common carotid artery is normal. Moderate partially calcified atherosclerotic plaque about the carotid bifurcation and in the proximal ICA without hemodynamically significant luminal narrowing. The internal carotid artery in the neck is otherwise normal. 0% ICA narrowing by NASCET criteria. Left carotid vessels: The common carotid artery is normal. Moderate partially calcified atherosclerotic plaque about the carotid bifurcation and in the proximal ICA without hemodynamically significant luminal narrowing. The internal carotid artery in the neck is otherwise normal. 0% ICA narrowing by NASCET criteria. Vertebral vessels: Mild athero sclerotic narrowing of the origins of the vertebral arteries, questionable hemodynamic significance. The visualized segments of the cervical vertebral arteries are otherwise normal in caliber. Left vertebral artery is dominant. Coronary artery calcifications noted. MMODAL Romaine Evans MD - 07/08/2024 Interpreted By: Romaine Evans, STUDY: CT ANGIO HEAD AND NECK W AND WO IV CONTRAST; 07/08/2024 12:30 am INDICATION: Signs/Symptoms:CVA. COMPARISON: Correlation made to noncontrast head CT of 07/07/2024. ACCESSION NUMBER(S): [id number] ORDERING CLINICIAN: VIRGINIA HERNANDEZ TECHNIQUE: Unenhanced CT images of the head were obtained. Subsequently, N/A of N/A was administered intravenously and axial images of the head and neck were acquired. Coronal, sagittal, and 3-D reconstructions were provided for review. FINDINGS: CTA HEAD FINDINGS: Anterior circulation: Ahev-nk-kogbdmzc atherosclerotic calcification in the carotid siphons without hemodynamically significant luminal narrowing. The bilateral intracranial internal carotid arteries, bilateral carotid terminals, bilateral proximal anterior and middle cerebral arteries are normal. Posterior circulation: Mild atherosclerotic calcification in the V4 segment of the left vertebral artery without significant luminal narrowing. Minor diffuse smooth narrowing of the V4 segment of the right vertebral artery distal to the PICA origin, probably representing developmental variability with or without some degree of atherosclerotic narrowing. Bilateral intracranial vertebral arteries, vertebrobasilar junction, basilar artery and proximal posterior cerebral arteries are otherwise normal. No intracranial saccular aneurysm or other abnormal intracranial enhancement. CTA NECK FINDINGS: Right carotid vessels: The common carotid artery is normal. Moderate partially calcified atherosclerotic plaque about the carotid bifurcation and in the proximal ICA without hemodynamically significant luminal narrowing. The internal carotid artery in the neck is otherwise normal. 0% ICA narrowing by NASCET criteria. Left carotid vessels: The common carotid artery is normal. Moderate partially calcified atherosclerotic plaque about the carotid bifurcation and in the proximal ICA without hemodynamically significant luminal narrowing. The internal carotid artery in the neck is otherwise normal. 0% ICA narrowing by NASCET criteria. Vertebral vessels: Mild athero sclerotic narrowing of the origins of the vertebral arteries, questionable hemodynamic significance. The visualized segments of the cervical vertebral arteries are otherwise normal in caliber. Left vertebral artery is dominant. Coronary artery calcifications noted. IMPRESSION: No evidence for significant stenosis of the cervical vessels. No evidence for significant stenosis or large branch vessel cutoffs of the intracranial vessels. MACRO: None Signed by: Romaine Evans 07/08/2024 1:24 AM Dictation workstation: [id number] [facility] Work Phone: [facility] Work Phone: Fibrin D-dimer FEU (PPP) [Ma ss/Vol]on 07-08-2024 Interpretation and review of laboratory results Normal [facility] The D-Dimer assay is reported in ng/mL Fibrinogen Equivalent Units (FEU). The results of this assay should NOT be used for the exclusion of Deep Vein Thrombosis and/or Pulmonary Embolism. [facility] HbA1c (Bld) [Mass fraction]o n 07-08-2024 Average glucose Estimated from glycated hemoglobin (Bld) [Mass/Vol] 120 mg/dL Not Established [facility] Interpretation and review of laboratory results Abnormal [facility] Diagnosis of Diabetes-Adults Non-Diabetic: < or = 5.6% Increased risk for developing diabetes: 5.7-6.4% Diagnostic of diabetes: > or = 6.5% [facility] Average glucose Estimated from glycated hemoglobin (Bld) [Mass/Vol] 120 mg/dL Normal Not Established [facility] Comment on above: Order Comment: Diagn osis of Qbiwbmut-JrpltdCoc-Zfgmsclq: < or = 5.6%Increased risk for developing diabetes: 5.7-6.4%Diagnostic of diabetes: > or = 6.5% Performed By: #### 5 7021-8 #### BETH FOSTER ([id number]) [facility] ([facility]) [address] [place] [address] Hemoglobin A1c/Hemoglobin.to anabela 07-08-2024 HbA1c (Bld) [Mass fraction] 5.8 % High see below [facility] Comment on above: Order Comment: Diagn osis of Nrmkaihm-IkntfqUjt-Jiyricmq: < or = 5.6%Increased risk for developing diabetes: 5.7-6.4%Diagnostic of diabetes: > or = 6.5% Performed By: #### 5 7021-8 #### BETH FOSTER ([id number]) [facility] ([facility]) [address] [place] [address] Heparin unfractionated Chrom ogenic method Qn (PPP)on 07-08-2024 Interpretation and review of laboratory results Normal [facility] The therapeutic reference range for UFH may be either 0.3-0.6 IU/mL or 0.3-0.7 IU/mL based on the clinical setting for anticoagulant therapy and the associated nomogram used. For Heparin dosing guidelines based on clinical scenario and Heparin Assay results, please refer to local Pharmacy and the [facility] Guidelines for Anticoagulation Therapy available on the [facility] intranet at: https://[facility].formerly [facility] hospitalN[facility] [employer].[facility]/Pharmacy/P ages/[facility] ls_Guidelines_for_Antic oagu.aspx [facility] Interpretation and review of laboratory results Normal [facility] The therapeutic reference range for UFH may be either 0.3-0.6 IU/mL or 0.3-0.7 IU/mL based on the clinical setting for anticoagulant therapy and the associated nomogram used. For Heparin dosing guidelines based on clinical scenario and Heparin Assay results, please refer to local Pharmacy and [facility] Guidelines for Anticoagulation Therapy available on the [facility] intranet at: https://[facility] hospital[facility] [employer].[facility]/Pharmacy/P ages/[facility] ls_Guidelines_for_Antic oagu.aspx [facility] Interpretation and review of laboratory results Normal [facility] The therapeutic reference range for UFH may be either 0.3-0.6 IU/mL or 0.3-0.7 IU/mL based on the clinical setting for anticoagulant therapy and the associated nomogram used. For Heparin dosing guidelines based on clinical scenario and Heparin Assay results, please refer to local Pharmacy and the [facility] Guidelines for Anticoagulation Therapy available on the [facility] intranet at: https://[facility].formerly [facility] hospitalN[facility] [employer].org/Pharmacy/P ages/[facility] ls_Guidelines_for_Antic oagu.aspx [facility] Heparin.unfractionatedon Heparin unfractionated Chromogenic method Qn (PPP) 0.3 IU/mL Normal See Comment Below for Therapeutic Ranges [facility] Comment on above: Order Comment: Obtai n 4 hours after any Heparin dosage change. Nursing to release order.The therapeutic reference range for UFH may be either 0.3-0.6 IU/mL or 0.3-0.7 IU/mL based on the clinical setting for anticoagulant therapy and the associated nomogram used. For Heparin dosing guidelines based on clinical scenario and Heparin Assay results, please refer to local Pharmacy and the [facility] Guidelines for Anticoagulation Therapy available on the [facility] intranet at: https://[email or web address]/Pharmacy/Pages/[facility]_Guidelines_for_Anticoagu.aspx Performed By: #### 5 7021-8 #### BETH FOSTER ([id number]) [facility] ([facility]) [address] [place] [address] Heparin unfractionated Chromogenic method Qn (PPP) 0.4 IU/mL Normal See Comment Below for Therapeutic Ranges [facility] Comment on above: Order Comment: When two (2) consecutive Heparin Assay, UFH results obtained 4 hours apart are therapeutic, obtain STAT Heparin Assay, UFH every a.m. Nursing to release order.The therapeutic reference range for UFH may be either 0.3-0.6 IU/mL or 0.3-0.7 IU/mL based on the clinical setting for anticoagulant therapy and the associated nomogram used. For Heparin dosing guidelines based on clinical scenario and Heparin Assay results, please refer to local Pharmacy and the [facility] Guidelines for Anticoagulation Therapy available on the [facility] intranet at: https://[email or web address]/Pharmacy/Pages/[facility]_Guidelines_for_Anticoagu.aspx Performed By: #### 5 7021-8 #### BETH FOSTER ([id number]) [facility] ([facility]) [address] [place], [place] [id number] Heparin unfractionated Chromogenic method Qn (PPP) 0.7 IU/mL Normal See Comment Below for Therapeutic Ranges [facility] Comment on above: Order Comment: Obtai n 4 hours after initiation of heparin infusion. Nursing to release order.The therapeutic reference range for UFH may be either 0.3-0.6 IU/mL or 0.3-0.7 IU/mL based on the clinical setting for anticoagulant therapy and the associated nomogram used. For Heparin dosing guidelines based on clinical scenario and Heparin Assay results, please refer to local Pharmacy and the [facility] Guidelines for Anticoagulation Therapy available on the [facility] intranet at: https://[email or web address]/Pharmacy/Pages/[facility]_ [facility]_Guidelines_for_Anticoagu.aspx Performed By: #### 5 7021-8 #### CAMPOS CRISTIAN ([id number]) [facility] ([facility]) [address] [place] [address] Laboratory - Chemistry and C hemistry - challengeon 07-08-2024 Tropinin I.cardiac panel High sensitivity method 526 ng/L Critically high 0 - 20 ng/L [facility] Comment on above: Previous result veri fied on 07/07/20242314 on specimen/case [id number] called with component TRPHS for procedure Troponin I, High Sensitivity with value 646 ng/L. Tropinin I.cardiac panel High sensitivity method 546 ng/L Critically high 0 - 20 ng/L [facility] Comment on above: Previous result veri fied on 07/07/20242314 on specimen/case [id number] called with component TRPHS for procedure Troponin I, High Sensitivity with value 646 ng/L. Laboratory - Coagulationon 0 07-08-2024 Heparin unfractionated Chromogenic method Qn (PPP) 0.3 See Comment Below for Therapeutic Ranges IU/mL [facility] Heparin unfractionated Chromogenic method Qn (PPP) 0.4 See Comment Below for Therapeutic Ranges IU/mL [facility] Heparin unfractionated Chromogenic method Qn (PPP) 0.7 See Comment Below for Therapeutic Ranges IU/mL [facility] Fibrin D-dimer FEU (PPP) [Mass/Vol] 335 NINF [facility] Laboratory - Hematology and Cell countson 07-08-2024 HbA1c (Bld) [Mass fraction] 5.8 % High see below [facility] Lipid 1996 panelon Cholesterol [Mass/Vol] 235 mg/dL High 0 - 1 99 mg/dL [facility] Comment on above: Age Desirable Borderline High High 0-19 Y 0 - 169 170 - 199 >/= 200 20-24 Y 0 - 189 190 - 224 >/= 225 >24 Y 0 - 199 200 - 239 >/= 240 All ranges are based on fasting samples. Specific therapeutic targets will vary based on patient-specific cardiac risk. Pediatric guidelines reference:Pediatrics 2011, 128(S5).Adult guidelines reference: NCEP ATPIII Guidelines,MIGDALIA 2001, 258:2486-97 Venipuncture immediately after or during the administration of Metamizole may lead to falsely low results. Testing should be performed immediately prior to Metamizole dosing. Cholesterol in HDL [Mass/Vol] 46.0 mg/dL [facility] Comment on above: Age Very Low Low Normal High 0-19 Y < 35 < 40 40-45 ---- 20-24 Y ---- < 40 >45 ---- >24 Y ---- < 40 40-60 >60 Cholesterol in LDL [Mass/Vol] 174 mg/dL High NINF - 99 mg/dL [facility] Comment on above: Near Borderline AGE Desirable Optimal High High Very High 0-19 Y 0 - 109 --- 110-129 >/= 130 ---- 20-24 Y 0 - 119 --- 120-159 >/= 160 ---- >24 Y 0 - 99 100-129 130-159 160-189 >/=190 Cholesterol in VLDL [Mass/Vol] 15 mg/dL 0 - 40 mg/dL [facility] Cholesterol.total/Chol esterol in HDL [Mass ratio] 5.1 {ratio} [facility] Comment on above: Ref Values Desirable < 3.4 High Risk > 5.0 Non HDL Cholesterol 189 mg/dL High 0 - 149 mg/dL [facility] Comment on above: Age Desirable Borderline High High Very High 0-19 Y 0 - 119 120 - 144 >/= 145 >/= 160 20-24 Y 0 - 149 150 - 189 >/= 190 ---- >24 Y 30 mg/dL above LDL Cholesterol goal Triglyceride [Mass/Vol] 75 mg/dL 0 - 149 mg/dL [facility] Comment on above: Age Desirable Borderline High High Very High 0 D-90 D 19 - 174 ---- ---- ---- 91 D- 9 Y 0 - 74 75 - 99 >/= 100 ---- 10-19 Y 0 - 89 90 - 129 >/= 130 ---- 20-24 Y 0 - 114 115 - 149 >/= 150 ---- >24 Y 0 - 149 150 - 199 200- 499 >/= 500 Venipuncture immediately after or during the administration of Metamizole may lead to falsely low results. Testing should be performed immediately prior to Metamizole dosing. Cholesterol [Mass/Vol] 235 mg/dL High 0-199 [facility] Comment on above: Result Comment: Age Desirable Borderline High High 0-19 Y 0 - 169 170 - 199 >/= 200 20-24 Y 0 - 189 190 - 224 >/= 225 >24 Y 0 - 199 200 - 239 >/= 240 All ranges are based on fasting samples. Specific therapeutic targets will vary based on patient-specific cardiac risk. Pediatric guidelines reference:Pediatrics 2011, 128(S5).Adult guidelines reference: NCEP ATPIII Guidelines,MIGDALIA 2001, 258:2486-97 Venipuncture immediately after or during the administration of Metamizole may lead to falsely low results. Testing should be performed immediately prior to Metamizole dosing. Performed By: #### 5 7021-8 #### BETH FOSTER ([id number]) [facility] ([facility]) [facility] [place] [address] Cholesterol in HDL [Mass/Vol] 46.0 mg/dL Normal [facility] Comment on above: Result Comment: Age Very Low Low Normal High 0-19 Y < 35 < 40 40-45 ---- 20-24 Y ---- < 40 >45 ---- >24 Y ---- < 40 40-60 >60 Performed By: #### 5 7021-8 #### BETH FOSTER ([id number]) [facility] ([facility]) [facility] [place] [address] Cholesterol in LDL [Mass/Vol] 174 mg/dL High <=99 [facility] Comment on above: Result Comment: Near Borderline AGE Desirable Optimal High High Very High 0-19 Y 0 - 109 --- 110-129 >/= 130 ---- 20-24 Y 0 - 119 --- 120-159 >/= 160 ---- >24 Y 0 - 99 100-129 130-159 160-189 >/=190 Performed By: #### 5 7021-8 #### BETH FOSTER ([id number]) [facility] ([facility]) [facility] [place] [address] Cholesterol in VLDL [Mass/Vol] 15 mg/dL Normal 0-40 [facility] Comment on above: Performed By: #### 5 7021-8 #### BETH FOSTER ([id number]) [facility] ([facility]) [address] [place] [address] CHOLESTEROL/HDL RATIO 5.1 Normal [facility] Comment on above: Result Comment: Ref Values Desirable < 3.4 High Risk > 5.0 Performed By: #### 5 7021-8 #### BETH FOSTER ([id number]) [facility] ([facility]) [address] [place] [address] NON HDL CHOLESTEROL 189 mg/dL High 0-149 [facility] Comment on above: Result Comment: Age Desirable Borderline High High Very High 0-19 Y 0 - 119 120 - 144 >/= 145 >/= 160 20-24 Y 0 - 149 150 - 189 >/= 190 ---- >24 Y 30 mg/dL above LDL Cholesterol goal Performed By: #### 5 7021-8 #### BETH FOSTER ([id number]) [facility] ([facility]) [address] [place] [address] Triglyceride [Mass/Vol] 75 mg/dL Normal 0-149 [facility] Comment on above: Result Comment: Age Desirable Borderline High High Very High 0 D-90 D 19 - 174 ---- ---- ---- 91 D- 9 Y 0 - 74 75 - 99 >/= 100 ---- 10-19 Y 0 - 89 90 - 129 >/= 130 ---- 20-24 Y 0 - 114 115 - 149 >/= 150 ---- >24 Y 0 - 149 150 - 199 200- 499 >/= 500 Venipuncture immediately after or during the administration of Metamizole may lead to falsely low results. Testing should be performed immediately prior to Metamizole dosing. Performed By: #### 5 7021-8 #### BETH FOSTER ([id number]) [facility] ([facility]) [address] [place] [address] MR BRAIN W AND WO IV CONTRAS Ton 07-08-2024 MR BRAIN W AND WO IV CONTRAST Interpreted By: Rony Louise, STUDY: MR BRAIN W AND WO IV CONTRAST; 07/10/2024 7:55 am INDICATION: Signs/Symptoms:TIA. COMPARISON: None. ACCESSION NUMBER(S): [id number] ORDERING CLINICIAN: GHANSHYAM KEARNS TECHNIQUE: The brain was studied in the sagittal axial and coronal planes utilizing FLAIR, T1 and T2 weighted images Following intravenous injection of gadolinium contrast, T1 weighted fat suppressed multiplanar images were also performed. FINDINGS: There is slight prominence of the cortical sulci and sylvian fissures. There is mild ventricular dilatation. There are patchy and confluence foci of abnormal signal within the periventricular and subcortical white matter bilaterally. These are compatible with minimal small vessel ischemic changes. These nonspecific findings could also be produced by a demyelinating or post inflammatory process. The visualized skull base paranasal sinuses and orbital structures are unremarkable. Diffusion weighted images and associated ADC maps of the brain demonstrate acute/subacute lacunar infarction in the left centrum semiovale with involvement of the posterior limb of the internal capsule. No associated hemorrhage or mass effect. Gradient echo T2 weighted images demonstrate a hemosiderin lined cleft in the left centrum semiovale and body of the left caudate nucleus consistent with previous hemorrhage or hemorrhagic infarction.. Following intravenous injection of there is no abnormal enhancement. There is normal contrast opacification of the dural venous sinuses. 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 Notification was initiated on 07/10/2024 at 10:22 am by Rony Louise. (-OCF-) Signed by: Rony Louise 07/10/2024 10:22 AM Dictation workstation: [id number] Normal [facility] No Panel Informationon 07-08 Extra Tube Hold for add-ons. [facility] Comment on above: Auto resulted. [facility] Interpretation and review of laboratory results Abnormal [facility] Extra Tube Hold for add-ons. [facility] Comment on above: Auto resulted. [facility] Tropinin I.cardiac panel Hig h sensitivity methodon 07-08-2024 Interpretation and review of laboratory results Abnormal [facility] Less than 99th percentile of normal range cutoff- Female and children under 18 years old <14 ng/L; Male <21 ng/L: Negative Repeat testing should be performed if clinically indicated. Female and children under 18 years old 14-50 ng/L; Male 21-50 ng/L: Consistent with possible cardiac damage and possible increased clinical risk. Serial measurements may help to assess extent of myocardial damage. >50 ng/L: Consistent with cardiac damage, increased clinical risk and myocardial infarction. Serial measurements may help assess extent of myocardial damage. NOTE: Children less than 1 year old may have higher baseline troponin levels and results should be interpreted in conjunction with the overall clinical context. NOTE: Troponin I testing is performed using a different testing methodology at [facility] than at other [facility]. Direct result comparisons should only be made within the same method. [facility] Interpretation and review of laboratory results Abnormal [facility] Less than 99th percentile of normal range cutoff- Female and children under 18 years old <14 ng/L; Male <21 ng/L: Negative Repeat testing should be performed if clinically indicated. Female and children under 18 years old 14-50 ng/L; Male 21-50 ng/L: Consistent with possible cardiac damage and possible increased clinical risk. Serial measurements may help to assess extent of myocardial damage. >50 ng/L: Consistent with cardiac damage, increased clinical risk and myocardial infarction. Serial measurements may help assess extent of myocardial damage. NOTE: Children less than 1 year old may have higher baseline troponin levels and results should be interpreted in conjunction with the overall clinical context. NOTE: Troponin I testing is performed using a different testing methodology at [facility] than at other [facility]. Direct result comparisons should only be made within the same method. [facility] Troponin I.cardiac panelon 0 07-08-2024 Tropinin I.cardiac panel High sensitivity method 526 ng/L Critically high 0-20 [facility] Comment on above: Order Comment: Less than 99th percentile of normal range cutoff-Female and children under 18 years old <14 ng/L; Male <21 ng/L: NegativeRepeat testing should be performed if clinically indicated.Female and children under 18 years old 14-50 ng/L; Male 21-50 ng/L:Consistent with possible cardiac damage and possible increased clinicalrisk. Serial measurements may help to assess extent of myocardial damage.>50 ng/L: Consistent with cardiac damage, increased clinical risk andmyocardial infarction. Serial measurements may help assess extent ofmyocardial damage.NOTE: Children less than 1 year old may have higher baseline troponinlevels and results should be interpreted in conjunction with the overallclinical context.NOTE: Troponin I testing is performed using a differenttesting methodology at [facility] than at [facility]. Direct result comparisons should onlybe made within the same method. Result Comment: Prev ious result verified on 07/07/2024 2315 on specimen/case [id number] called with component [facility] for procedure Troponin I, High Sensitivity with value 646 ng/L. Performed By: #### 5 7021-8 #### CAPMOS CRISTIAN ([id number]) [facility] ([facility]) [address] [place] [address] CBC W Auto Differential pane l (Bld)on 07-07-2024 Basophils (Bld) [#/Vol] 0.05 10*3/uL [facility] Basophils/100 WBC (Bld) 0.8 % 0.0 - 2.0 % [facility] Eosinophils (Bld) [#/Vol] 0.36 10*3/uL [facility] Eosinophils/100 WBC (Bld) 5.5 % 0.0 - 6.0 % [facility] Erythrocyte distribution width (RBC) [Ratio] 13.1 % 11.5 - 14.5 % [facility] Hematocrit (Bld) [Volume fraction] 43.3 % 41.0 - 52.0 % [facility] Hemoglobin (Bld) [Mass/Vol] 14.5 g/dL 13.5 - 17.5 g/dL [facility] Immature granulocytes (Bld) [#/Vol] 0.02 10*3/uL [facility] Immature granulocytes/100 WBC (Bld) 0.3 % 0.0 - 0.9 % [facility] Comment on above: Immature Granulocyte Count (IG) includes promyelocytes, myelocytes and metamyelocytes but does not include bands. Percent differential counts (%) should be interpreted in the context of the absolute cell counts (cells/UL). Lymphocytes (Bld) [#/Vol] 1.79 10*3/uL [facility] Lymphocytes/100 WBC (Bld) 27.4 % 13.0 - 44.0 % [facility] MCH (RBC) [Entitic mass] 31.3 pg 26.0 - 34.0 pg [facility] MCHC (RBC) [Mass/Vol] 33.5 g/dL 32.0 - 36.0 g/dL [facility] MCV (RBC) [Entitic vol] 94 fL 80 - 100 fL [facility] Monocytes (Bld) [#/Vol] 0.77 10*3/uL [facility] Monocytes/100 WBC (Bld) 11.8 % 2.0 - 10.0 % [facility] Neutrophils (Bld) [#/Vol] 3.55 10*3/uL [facility] Comment on above: Percent differential counts (%) should be interpreted in the context of the absolute cell counts (cells/uL). Neutrophils/100 WBC (Bld) 54.2 % 40.0 - 80.0 % [facility] Nucleated RBC/100 WBC (Bld) [Ratio] 0.0 % [facility] Platelets (Bld) [#/Vol] 223 10*3/uL [facility] RBC (Bld) [#/Vol] 4.63 10*6/uL [facility] WBC (Bld) [#/Vol] 6.5 10*3/uL [facility] Basophils (Bld) [#/Vol] 0.05 x10*3/uL Normal 0.00-0.10 [facility] Comment on above: Performed By: #### 5 7021-8 #### CAMPOS CRISTIAN ([id number]) [facility] ([facility]) [address] [place] [address] Basophils/100 WBC (Bld) 0.8 % Normal 0.0-2.0 [facility] Comment on above: Performed By: #### 5 7021-8 #### BETH FOSTER ([id number]) [facility] ([facility]) [address] [place] [address]307 Eosinophils (Bld) [#/Vol] 0.36 x10*3/uL Normal 0.00-0.70 [facility] Comment on above: Performed By: #### 7021-8 #### BETH FOSTER ([id number]) [facility] ([facility]) [address] [place] [address]0939 Eosinophils/100 WBC (Bld) 5.5 % Normal 0.0-6.0 [facility] Comment on above: Performed By: #### 7021-8 #### BETH FOSTER ([id number]) [facility] ([facility]) [address] [place] [address] 03773 Erythrocyte distribution width (RBC) [Ratio] 13.1 % Normal 11.5-14.5 [facility] Comment on above: Performed By: #### 7021-8 #### BETH FOSTER ([id number]) [facility] ([facility]) [address] [place] [address] Hematocrit (Bld) [Volume fraction] 43.3 % Normal 41.0-52.0 [facility] Comment on above: Performed By: #### 5 7021-8 #### BETH FOSTER ([id number]) [facility] ([facility]) [address] [place] [address] 48622 Hemoglobin (Bld) [Mass/Vol] 14.5 g/dL Normal 13.5-17.5 [facility] Comment on above: Performed By: #### 5 7021-8 #### BETH FOSTER ([id number]) [facility] ([facility]) [address] [place] [address] 63745 Immature granulocytes (Bld) [#/Vol] 0.02 x10*3/uL Normal 0.00-0.70 [facility] Comment on above: Performed By: #### 5 7021-8 #### BETH FOSTER ([id number]) [facility] ([facility]) [address] [place] [address] 43570 Immature granulocytes/100 WBC (Bld) 0.3 % Normal 0.0-0.9 [facility] Comment on above: Result Comment: Ingris ture Granulocyte Count (IG) includes promyelocytes, myelocytes and metamyelocytes but does not include bands. Percent differential counts (%) should be interpreted in the context of the absolute cell counts (cells/UL). Performed By: #### 5 7021-8 #### BETH FOSTER ([id number]) [facility] ([facility]) [address] [place] [address] 46816 Lymphocytes (Bld) [#/Vol] 1.79 x10*3/uL Normal 1.20-4.80 [facility] Comment on above: Performed By: #### 5 7021-8 #### BETH FOSTER ([id number]) [facility] ([facility]) [address] [place] [address] 92660 Lymphocytes/100 WBC (Bld) 27.4 % Normal 13.0-44.0 [facility] Comment on above: Performed By: #### 5 7021-8 #### BETH FOSTER ([id number]) [facility] ([facility]) [address] [place] [address] 90050 MCH (RBC) [Entitic mass] 31.3 pg Normal 26.0-34.0 [facility] Comment on above: Performed By: #### 5 7021-8 #### BETH FOSTER ([id number]) [facility] ([facility]) [address] [place] [address] 96994 MCHC (RBC) [Mass/Vol] 33.5 g/dL Normal 32.0-36.0 [facility] Comment on above: Performed By: #### 5 7021-8 #### BETH FOSTER ([id number]) [facility] ([facility]) [address] [place] [address] 88604 MCV (RBC) [Entitic vol] 94 fL Normal 80-100 [facility] Comment on above: Performed By: #### 5 7021-8 #### BETH FOSTER ([id number]) [facility] ([facility]) [address] [place] [address] 06297 Monocytes (Bld) [#/Vol] 0.77 x10*3/uL Normal 0.10-1.00 [facility] Comment on above: Performed By: #### 5 7021-8 #### BETH FOSTER ([id number]) [facility] ([facility]) [address] [place] [address] 95433 Monocytes/100 WBC (Bld) 11.8 % Normal 2.0-10.0 [facility] Comment on above: Performed By: #### 5 7021-8 #### BETH FOSTER ([id number]) [facility] ([facility]) [address] [place] [address] 93389 Neutrophils (Bld) [#/Vol] 3.55 x10*3/uL Normal 1.20-7.70 [facility] Comment on above: Result Comment: Perc ent differential counts (%) should be interpreted in the context of the absolute cell counts (cells/uL). Performed By: #### 5 7021-8 #### BETH FOSTER ([id number]) [facility] ([facility]) [address] [place] [address] 38832 Neutrophils/100 WBC (Bld) 54.2 % Normal 40.0-80.0 [facility] Comment on above: Performed By: #### 5 7021-8 #### BETH FOSTER ([id number]) [facility] ([facility]) [address] [place] [address] 15127 Nucleated RBC/100 WBC (Bld) [Ratio] 0.0 /100 WBCs Normal 0.0-0.0 [facility] Comment on above: Performed By: #### 5 7021-8 #### BETH FOSTER ([id number]) [facility] ([facility]) [address] [place] [address] 10573 Platelets (Bld) [#/Vol] 223 x10*3/uL Normal 150-450 [facility] Comment on above: Performed By: #### 5 7021-8 #### BETH FOSTER ([id number]) [facility] ([facility]) [facility] [place] [address] RBC (Bld) [#/Vol] 4.63 x10*6/uL Normal 4.50-5.90 [facility] Comment on above: Performed By: #### 5 7021-8 #### BETH FOSTER ([id number]) [facility] ([facility]) [facility] [place] [address] WBC (Bld) [#/Vol] 6.5 x10*3/uL Normal 4.4-11.3 [facility] Comment on above: Performed By: #### 5 7021-8 #### BETH FOSTER ([id number]) [facility] ([facility]) [address] [place] [address] CT ANGIO HEAD AND NECK W AND WO IV CONTRASTon 07-07-2024 CT ANGIO HEAD AND NECK W AND WO IV CONTRAST Interpreted By: Romaine Evans, STUDY: CT ANGIO HEAD AND NECK W AND WO IV CONTRAST; 07/08/2024 12:30 am INDICATION: Signs/Symptoms:CVA. COMPARISON: Correlation made to noncontrast head CT of 07/07/2024. ACCESSION NUMBER(S): [id number] ORDERING CLINICIAN: VIRGINIA HRENANDEZ TECHNIQUE: Unenhanced CT images of the head were obtained. Subsequently, N/A of N/A was administered intravenously and axial images of the head and neck were acquired. Coronal, sagittal, and 3-D reconstructions were provided for review. FINDINGS: CTA HEAD FINDINGS: Anterior circulation: Dvjc-xv-ldmeerxy atherosclerotic calcification in the carotid siphons without hemodynamically significant luminal narrowing. The bilateral intracranial internal carotid arteries, bilateral carotid terminals, bilateral proximal anterior and middle cerebral arteries are normal. Posterior circulation: Mild atherosclerotic calcification in the V4 segment of the left vertebral artery without significant luminal narrowing. Minor diffuse smooth narrowing of the V4 segment of the right vertebral artery distal to the PICA origin, probably representing developmental variability with or without some degree of atherosclerotic narrowing. Bilateral intracranial vertebral arteries, vertebrobasilar junction, basilar artery and proximal posterior cerebral arteries are otherwise normal. No intracranial saccular aneurysm or other abnormal intracranial enhancement. CTA NECK FINDINGS: Right carotid vessels: The common carotid artery is normal. Moderate partially calcified atherosclerotic plaque about the carotid bifurcation and in the proximal ICA without hemodynamically significant luminal narrowing. The internal carotid artery in the neck is otherwise normal. 0% ICA narrowing by NASCET criteria. Left carotid vessels: The common carotid artery is normal. Moderate partially calcified atherosclerotic plaque about the carotid bifurcation and in the proximal ICA without hemodynamically significant luminal narrowing. The internal carotid artery in the neck is otherwise normal. 0% ICA narrowing by NASCET criteria. Vertebral vessels: Mild athero sclerotic narrowing of the origins of the vertebral arteries, questionable hemodynamic significance. The visualized segments of the cervical vertebral arteries are otherwise normal in caliber. Left vertebral artery is dominant. Coronary artery calcifications noted. IMPRESSION: No evidence for significant stenosis of the cervical vessels. No evidence for significant stenosis or large branch vessel cutoffs of the intracranial vessels. MACRO: None Signed by: Romaine Evans 07/08/2024 1:24 AM Dictation workstation: [id number] [facility] CT BRAIN ATTACK HEAD WO IV C [facility] 07-07-2024 CT BRAIN ATTACK HEAD WO IV CONTRAST Interpreted By: Romaine Evans, STUDY: CT BRAIN ATTACK HEAD WO IV CONTRAST; 07/07/2024 10:33 pm INDICATION: Signs/Symptoms:Stroke Evaluation. COMPARISON: None. ACCESSION NUMBER(S): [id number] ORDERING CLINICIAN: VIRGINIA HERNANDEZ TECHNIQUE: Noncontrast axial CT scan of head was performed. Angled reformats in brain and bone windows were generated. The images were reviewed in bone, brain, blood and soft tissue windows. FINDINGS: CSF Spaces: Minor ex vacuo dilation of the frontal horn of the left lateral ventricle the ventricles, sulci and basal cisterns are otherwise within normal limits. There is no extraaxial fluid collection. Parenchyma: Moderate to advanced volume loss. There is periventricular and subcortical white matter hypoattenuation, most in keeping with chronic microvascular ischemic change. 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 The ledesma-white differentiation is intact. There is no mass effect or midline shift. There is no intracranial hemorrhage. Calvarium: The calvarium is unremarkable. Paranasal sinuses and mastoids: Visualized paranasal sinuses and mastoids are clear. IMPRESSION: No evidence of acute cortical infarct or intracranial hemorrhage. Brain parenchymal volume loss and chronic ischemic changes. MACRO: Romaine Evans discussed the significance and urgency of this critical finding by epic secure chat with VIRGINIA HERNANDEZ on 07/07/2024 at 10:48 pm. (-RCF-) Findings: See findings. Signed by: Romaine Evans 07/07/2024 10:49 PM Dictation workstation: [id number] [facility] CT Head WO contraston 2023 No evidence of acute cortical infarct or intracranial hemorrhage. Brain parenchymal volume loss and chronic ischemic changes. MACRO: Romaine Evans discussed the significance and urgency of this critical finding by epic secure chat with VIRGINIA HERNANDEZ on 07/07/2024 at 10:48 pm. (-RCF-) Findings: See findings. Signed by: Romaine Evans 07/07/2024 10:49 PM Dictation workstation: [id number] [facility] Interpreted By: Romaine Kim, STUDY: CT BRAIN ATTACK HEAD WO IV CONTRAST; 07/07/2024 10:33 pm INDICATION: Signs/Symptoms:Stroke Evaluation. COMPARISON: None. ACCESSION NUMBER(S): [id number] ORDERING CLINICIAN: VIRGINIA HERNANDEZ TECHNIQUE: Noncontrast axial CT scan of head was performed. Angled reformats in brain and bone windows were generated. The images were reviewed in bone, brain, blood and soft tissue windows. FINDINGS: CSF Spaces: Minor ex vacuo dilation of the frontal horn of the left lateral ventricle the ventricles, sulci and basal cisterns are otherwise within normal limits. There is no extraaxial fluid collection. Parenchyma: Moderate to advanced volume loss. There is periventricular and subcortical white matter hypoattenuation, most in keeping with chronic microvascular ischemic change. 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 The ledesma-white differentiation is intact. There is no mass effect or midline shift. There is no intracranial hemorrhage. Calvarium: The calvarium is unremarkable. Paranasal sinuses and mastoids: Visualized paranasal sinuses and mastoids are clear. [facility] Romaine Evans MD - 07/07/2024 Interpreted By: Romaine Evans, STUDY: CT BRAIN ATTACK HEAD WO IV CONTRAST; 07/07/2024 10:33 pm INDICATION: Signs/Symptoms:Stroke Evaluation. COMPARISON: None. ACCESSION NUMBER(S): [id number] ORDERING CLINICIAN: VIRGINIA HERNANDEZ TECHNIQUE: Noncontrast axial CT scan of head was performed. Angled reformats in brain and bone windows were generated. The images were reviewed in bone, brain, blood and soft tissue windows. FINDINGS: CSF Spaces: Minor ex vacuo dilation of the frontal horn of the left lateral ventricle the ventricles, sulci and basal cisterns are otherwise within normal limits. There is no extraaxial fluid collection. Parenchyma: Moderate to advanced volume loss. There is periventricular and subcortical white matter hypoattenuation, most in keeping with chronic microvascular ischemic change. 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 The ledesma-white differentiation is intact. There is no mass effect or midline shift. There is no intracranial hemorrhage. Calvarium: The calvarium is unremarkable. Paranasal sinuses and mastoids: Visualized paranasal sinuses and mastoids are clear. IMPRESSION: No evidence of acute cortical infarct or intracranial hemorrhage. Brain parenchymal volume loss and chronic ischemic changes. MACRO: Romaine Evans discussed the significance and urgency of this critical finding by [employer] secure chat with VIRGINIA HERNANDEZ on 07/07/2024 at 10:48 pm. (-RCF-) Findings: See findings. Signed by: Romaine Evans 07/07/2024 10:49 PM Dictation workstation: [id number] [facility] Work Phone: Radiology Study observation (narrative) [facility] Work Phone: CT Head WO contrastOrdered B y: Romaine Evans on 07-07-2024 [facility] Work Phone: CTA Head vessels and Neck ve ssels WO and W contrast Sukhdev 07-07-2024 Radiology Study observation (narrative) [facility] Work Phone: Coagulation surface inducedo n 07-07-2024 aPTT Coag (PPP) [Time] 29 s Normal 27-38 [facility] Comment on above: Order Comment: The A PTT is no longer used for monitoring Unfractionated Heparin Therapy. For monitoring Heparin Therapy, use the Heparin Assay. Performed By: #### 1 4979-9 #### BETH FOSTER ([id number]) [facility] ([facility]) [facility] [place] [address] Coagulation tissue factor in ducedon 07-07-2024 PT Coag (PPP) [Time] 11.2 s Normal 9.8-12.8 [facility] Comment on above: Performed By: #### 5 902-2 #### BETH FOSTER ([id number]) [facility] ([facility]) [facility] [place] [address] Comprehensive metabolic 2000 panelon 07-07-2024 Albumin BCP dye [Mass/Vol] 4.3 g/dL 3.4 - 5.0 g/dL [facility] ALP [Catalytic activity/Vol] 85 U/L 33 - 136 U/L [facility] ALT With P-5'-P [Catalytic activity/Vol] 27 U/L 10 - 52 U/L [facility] Comment on above: Patients treated wit h Sulfasalazine may generate falsely decreased results for ALT. Anion gap [Moles/Vol] 13 mmol/L 10 - 2 0 mmol/L [facility] AST With P-5'-P [Catalytic activity/Vol] 26 U/L 9 - 39 U/L [facility] Bilirubin [Mass/Vol] 0.5 mg/dL 0.0 - 1 .2 mg/dL [facility] Calcium [Mass/Vol] 9.1 mg/dL 8.6 - 10. 3 mg/dL [facility] Chloride [Moles/Vol] 106 mmol/L 98 - 10 7 mmol/L [facility] CO2 [Moles/Vol] 24 mmol/L 21 - 32 mmol/L [facility] Creatinine [Mass/Vol] 1.11 mg/dL 0.50 - 1.30 mg/dL [facility] GFR/1.73 sq M.predicted among non-blacks MDRD (S/P/Bld) [Vol rate/Area] 72 mL/min/{1.73_m2} - PINF [facility] Comment on above: Calculations of therese mated GFR are performed using the 2020 CKD-EPI Study Refit equation without the race variable for the IDMS-Traceable creatinine methods. https://jasn.asnjournals.org/content//ASN.66083 19449 Glucose [Mass/Vol] 89 mg/dL 74 - 99 mg/dL [facility] Interpretation and review of laboratory results Normal [facility] Potassium [Moles/Vol] 3.8 mmol/L 3.5 - 5.3 mmol/L [facility] Protein [Mass/Vol] 7.0 g/dL 6.4 - 8.2 g/dL [facility] Sodium [Moles/Vol] 139 mmol/L 136 - 145 mmol/L [facility] Urea nitrogen [Mass/Vol] 16 mg/dL 6 - 23 mg/dL [facility] Albumin BCP dye [Mass/Vol] 4.3 g/dL Normal 3.4-5.0 [facility] Comment on above: Performed By: #### 2 4323-8 #### BETH FOSTER ([id number]) [facility] ([facility]) [address] [place] [address] ALP [Catalytic activity/Vol] 85 U/L Normal 33-136 [facility] Comment on above: Performed By: #### 2 4323-8 #### BETH FOSTER ([id number]) [facility] ([facility]) [address] [place] [address] 60798 ALT With P-5'-P [Catalytic activity/Vol] 27 U/L Normal 10-52 [facility] Comment on above: Result Comment: Ragini ents treated with Sulfasalazine may generate falsely decreased results for ALT. Performed By: #### 2 4323-8 #### BETH FOSTER ([id number]) [facility] ([facility]) [address] [place] [address] Anion gap [Moles/Vol] 13 mmol/L Normal 10-20 [facility] Comment on above: Performed By: #### 2 4323-8 #### BETH FOSTER ([id number]) [facility] ([facility]) [address] [place] [address] 02958 AST With P-5'-P [Catalytic activity/Vol] 26 U/L Normal 9-39 [facility] Comment on above: Performed By: #### 2 4323-8 #### BETH FOSTER ([id number]) [facility] ([facility]) [address] [place] [address] Bilirubin [Mass/Vol] 0.5 mg/dL Normal 0.0-1.2 [facility] Comment on above: Performed By: #### 2 4323-8 #### BETH FOSTER ([id number]) [facility] ([facility]) [address] [place] [address] Calcium [Mass/Vol] 9.1 mg/dL Normal 8.6-10.[address] [facility] Comment on above: Performed By: #### 2 432-8 #### BETH FOSTER ([id number]) [facility] ([facility]) [address] [place] [address] 28540 Chloride [Moles/Vol] 106 mmol/L Normal 98-107 [facility] Comment on above: Performed By: #### 2 432-8 #### BETH FOSTER ([id number]) [facility] ([facility]) [address] [place] [address] CO2 [Moles/Vol] 24 mmol/L Normal 21-32 [facility] Comment on above: Performed By: #### 2 4323-8 #### BETH FOSTER ([id number]) [facility] ([facility]) [address] [place] [address] Creatinine [Mass/Vol] 1.11 mg/dL Normal 0.50-1.30 [facility] Comment on above: Performed By: #### 2 4323-8 #### BETH FOSTER ([id number]) [facility] ([facility]) [facility] [place] [address] Glomerular filtration rate/1.73 sq M.predicted 72 mL/min/1.73m*2 Normal >60 [facility] Comment on above: Result Comment: Calc ulations of estimated GFR are performed using the 2020 CKD-EPI Study Refit equation without the race variable for the IDMS-Traceable creatinine methods. https://jasn.asnjournals.org/content//ASN.10821 82026 Performed By: #### 2 4323-8 #### BETH FOSTER ([id number]) [facility] ([facility]) [address] [place] [address] 74739 Glucose [Mass/Vol] 89 mg/dL Normal 74-[address] [facility] Comment on above: Performed By: #### 2 4323-8 #### BETH FOSTER ([id number]) [facility] ([facility]) [address] [place] [address] 22753 Potassium [Moles/Vol] 3.8 mmol/L Normal 3.5-5.3 [facility] Comment on above: Performed By: #### 2 4323-8 #### BETH FOSTER ([id number]) [facility] ([facility]) [address] [place] [address] 55857 Protein [Mass/Vol] 7.0 g/dL Normal 6.4-8.[address] [facility] Comment on above: Performed By: #### 2 4323-8 #### BETH FOSTER ([id number]) [facility] ([facility]) [address] [place] [address] 06523 Sodium [Moles/Vol] 139 mmol/L Normal 136-[address] [facility] Comment on above: Performed By: #### 2 4323-8 #### BETH FOSTER ([id number]) [facility] ([facility]) [address] [place] [address] 11779 Urea nitrogen [Mass/Vol] 16 mg/dL Normal 6-23 [facility] Comment on above: Performed By: #### 2 4323-8 #### BETH FOSTER ([id number]) [facility] ([facility]) [address] [place] [address] 85363 ECG 12-LEADon 07-07-2024 ECG 12-LEAD Ventricular Rate 86 Atrial Rate 86 P-R Interval 158 QRS Duration 92 Q-T Interval 366 QTC Calculation(Bazett) 437 P Blackburn 54 R Blackburn 37 T Blackburn 25 QRS Count 14 Q Onset 214 P Onset 135 P Offset 192 T Offset 397 QTC Fredericia 412 Diagnosis Normal sinus rhythm Normal ECG When compared with ECG of 05-JUL-2024 15:13, (unconfirmed) Sinus rhythm has replaced Atrial fibrillation Right bundle branch block is no longer Present Confirmed by Emanuel Giraldo ([id number]) on 07/10/2024 6:08:35 PM Normal [facility] Fibrin D-dimer FEUon 024 Fibrin D-dimer FEU (PPP) [Mass/Vol] 335 ng/mL FEU Normal <=500 [facility] Comment on above: Order Comment: The D -Dimer assay is reported in ng/mL Fibrinogen Equivalent Units (FEU). The results of this assay should NOT be used for the exclusion of Deep Vein Thrombosis and/or Pulmonary Embolism. Performed By: #### 4 8065-7 #### BETH FOSTER ([id number]) [facility] ([facility]) [address] [place] [address] Glucose Test strip manual (B ld) [Mass/Vol]on 07-07-2024 Glucose [Mass/Vol] 77 mg/dL 74 - 99 mg/dL [facility] Interpretation and review of laboratory results [facility] Glucose [Mass/Vol] 77 mg/dL Normal 74-[address] [facility] Comment on above: Performed By: #### 2 341-6 #### BETH FOSTER ([id number]) [facility] ([facility]) [address] [place] [address] Laboratory - Chemistry and C hemistry - challengeon 07-07-2024 Tropinin I.cardiac panel High sensitivity method 646 ng/L Critically high 0 - 20 ng/L [facility] Laboratory - Coagulationon 0 07-07-2024 aPTT Coag (PPP) [Time] 29 s [facility] PT Coag (PPP) [Time] 11.2 s [facility] No Panel Informationon 07-07 Interpretation and review of laboratory results Normal [facility] PT Coag (PPP) [Time]on 07-07 INR Coag (PPP) [Relative time] 1.0 {INR} 0.9 - 1.1 [facility] INR Coag (PPP) [Relative time] 1.0 Normal 0.9-1.1 [facility] Comment on above: Performed By: #### 5 902-2 #### CAMPOS CRISTIAN ([id number]) [facility] ([facility]) [address] [place] [address] Tropinin I.cardiac panel Hig h sensitivity methodon 07-07-2024 Interpretation and review of laboratory results Abnormal [facility] Less than 99th percentile of normal range cutoff- Female and children under 18 years old <14 ng/L; Male <21 ng/L: Negative Repeat testing should be performed if clinically indicated. Female and children under 18 years old 14-50 ng/L; Male 21-50 ng/L: Consistent with possible cardiac damage and possible increased clinical risk. Serial measurements may help to assess extent of myocardial damage. >50 ng/L: Consistent with cardiac damage, increased clinical risk and myocardial infarction. Serial measurements may help assess extent of myocardial damage. NOTE: Children less than 1 year old may have higher baseline troponin levels and results should be interpreted in conjunction with the overall clinical context. NOTE: Troponin I testing is performed using a different testing methodology at [facility] than at other [facility]. Direct result comparisons should only be made within the same method. [facility] Troponin I.cardiac panelon 0 07-07-2024 Tropinin I.cardiac panel High sensitivity method 546 ng/L Critically high 0-20 [facility] Comment on above: Order Comment: Less than 99th percentile of normal range cutoff- Female and children under 18 years old <14 ng/L; Male <21 ng/L: Negative Repeat testing should be performed if clinically indicated. Female and children under 18 years old 14-50 ng/L; Male 21-50 ng/L: Consistent with possible cardiac damage and possible increased clinical risk. Serial measurements may help to assess extent of myocardial damage. >50 ng/L: Consistent with cardiac damage, increased clinical risk and myocardial infarction. Serial measurements may help assess extent of myocardial damage. NOTE: Children less than 1 year old may have higher baseline troponin levels and results should be interpreted in conjunction with the overall clinical context. NOTE: Troponin I testing is performed using a different testing methodology at [facility] than at other system hospitals. Direct result comparisons should only be made within the same method. Result Comment: Prev ious result verified on 07/07/2024 2315 on specimen/case [id number] called with component [facility] for procedure Troponin I, High Sensitivity with value 646 ng/L. Performed By: #### 8 [id number] #### CAMPOS CRISTIAN ([id number]) [facility] ([facility]) [facility] [place] [address] Tropinin I.cardiac panel High sensitivity method 646 ng/L Critically high 0-20 [facility] Comment on above: Order Comment: Less than 99th percentile of normal range cutoff- Female and children under 18 years old <14 ng/L; Male <21 ng/L: Negative Repeat testing should be performed if clinically indicated. Female and children under 18 years old 14-50 ng/L; Male 21-50 ng/L: Consistent with possible cardiac damage and possible increased clinical risk. Serial measurements may help to assess extent of myocardial damage. >50 ng/L: Consistent with cardiac damage, increased clinical risk and myocardial infarction. Serial measurements may help assess extent of myocardial damage. NOTE: Children less than 1 year old may have higher baseline troponin levels and results should be interpreted in conjunction with the overall clinical context. NOTE: Troponin I testing is performed using a different testing methodology at [facility] than at other [facility]. Direct result comparisons should only be made within the same method. Performed By: #### 8 [id number] #### BETH FOSTER ([id number]) [facility] ([facility]) [facility] [place] [address] aPTT Coag (PPP) [Time]on The APTT is no longe r used for monitoring Unfractionated Heparin Therapy. For monitoring Heparin Therapy, use the Heparin Assay. [facility] B TYPE NATRIURETIC PEPTIDEon 02-20-2019 Natriuretic peptide B mass conc (Bld) pg/mL Normal 0-100 [facility] Comment on above: Performed By: #### C MPF, LIPA2, ACBC, BNP #### Testing performed at [address] [address] B-TYPE NATRIURETIC PEPTIDE ( BRAIN)on 02-20-2019 Natriuretic peptide B (Bld) [Mass/Vol] pg/mL 0 - 100 pg/mL [facility] CBCon 02-20-2019 ABSOLUTE BAS 0.1 X10 Normal [facility] Comment on above: Performed By: #### C MPF, LIPA2, ACBC, BNP #### Testing performed at [address] [address] ABSOLUTE EOS 0.20 X10 Normal [facility] Comment on above: Performed By: #### C MPF, LIPA2, ACBC, BNP #### Testing performed at [address] [address] ABSOLUTE NEUTROPHIL COUNT 4.9 x10 Normal 1.0-7.0 [facility] Comment on above: Performed By: #### C MPF, LIPA2, ACBC, BNP #### Testing performed at [address] [address] Basophils/100 WBC (Bld) 0.8 % Normal 0.0-2.0 [facility] Comment on above: Performed By: #### C MPF, LIPA2, ACBC, BNP #### Testing performed at [address] [address] DTYPE AUTO DIFF Normal [facility] Comment on above: Performed By: #### C MPF, LIPA2, ACBC, BNP #### Testing performed at [address] [address] Eosinophils/100 WBC (Bld) 3.3 % Normal 0.0-11.0 [facility] Comment on above: Performed By: #### C MPF, LIPA2, ACBC, BNP #### Testing performed at [address] [address] Lymphocytes #/vol (Bld) 1.80 X10 Normal [facility] Comment on above: Performed By: #### C MPF, LIPA2, ACBC, BNP #### Testing performed at [address] [address] Lymphocytes/100 WBC (Bld) 23.9 % Normal 20.0-55.0 [facility] Comment on above: Performed By: #### C MPF, LIPA2, ACBC, BNP #### Testing performed at [address] [address] Monocytes #/vol (Bld) 0.5 X10 Normal [facility] Comment on above: Performed By: #### C MPF, LIPA2, ACBC, BNP #### Testing performed at [address] [address] Monocytes/100 WBC (Bld) 7.1 % Normal 0.0-10.0 [facility] Comment on above: Performed By: #### C MPF, LIPA2, ACBC, BNP #### Testing performed at [address] [address] Neutrophils/100 WBC (Bld) 64.9 % Normal 37.0-75.0 [facility] Comment on above: Performed By: #### C MPF, LIPA2, ACBC, BNP #### Testing performed at [address] [address] Erythrocyte distribution width Ratio (RBC) 13.5 % Normal 11.5-14.5 [facility] Comment on above: Performed By: #### C MPF, LIPA2, ACBC, BNP #### Testing performed at [address] [address] Hematocrit Volume Fraction (Bld) 46.0 % Normal 42.0-52.0 [facility] Comment on above: Performed By: #### C MPF, LIPA2, ACBC, BNP #### Testing performed at [address] [address] Hemoglobin mass conc (Bld) 15.7 g/dL Normal 14.0-18.0 [facility] Comment on above: Performed By: #### C MPF, LIPA2, ACBC, BNP #### Testing performed at [address] [address] MCH Entitic mass (RBC) 32.0 pg Normal 26.0-35.0 [facility] Comment on above: Performed By: #### C MPF, LIPA2, ACBC, BNP #### Testing performed at [address] [address] MCHC mass conc (RBC) 34.1 g/dL Normal 27.0-37.0 [facility] Comment on above: Performed By: #### C MPF, LIPA2, ACBC, BNP #### Testing performed at [address] [address] MCV Entitic volume (RBC) 93.7 fL Normal 80.0-100.0 [facility] Comment on above: Performed By: #### C MPF, LIPA2, ACBC, BNP #### [place] [address] Platelet mean volume Entitic volume (Bld) 8.7 fL Normal 7.4-11.0 [facility] Comment on above: Performed By: #### C MPF, LIPA2, ACBC, BNP #### [place] [address] Platelets #/vol (Bld) 262 /cmm Normal 130.0-400.0 [facility] Comment on above: Performed By: #### C MPF, LIPA2, ACBC, BNP #### Testing performed at [address] [address] RBC #/vol (Bld) 4.91 /cmm Normal 4.0-6.1 [facility] Comment on above: Performed By: #### C MPF, LIPA2, ACBC, BNP #### Testing performed at [place] [id number] WBC #/vol (Bld) 7.6 /cmm Normal 3.6-11.0 [facility] Comment on above: Performed By: #### C MPF, LIPA2, ACBC, BNP #### Testing performed at [place] [id number] CBC, EDIF, PLATELETon 2018 ABSOLUTE BASOPHIL COUNT 0.[address] [facility] Basophils/100 WBC (Bld) 0.8 % 0 - 2 % [facility] Differential cell count method Nom (Bld) AUTO DIFF % [facility] Eosinophils (Bld) [#/Vol] 0.20 10*3/uL X10 [facility] Eosinophils/100 WBC (Bld) 3.3 % 0 - 11 % [facility] Erythrocyte distribution width (RBC) [Ratio] 13.5 % 11.5 - 14.5 % [facility] Hematocrit (Bld) [Volume fraction] 46.0 % 42 - 52 % [facility] Hemoglobin (Bld) [Mass/Vol] 15.7 g/dL [facility] Lymphocytes (Bld) [#/Vol] 1.80 10*3/uL X10 [facility] Lymphocytes/100 WBC (Bld) 23.9 % 20 - 55 % [facility] MCH (RBC) [Entitic mass] 32.0 pg 26 - [address] [facility] MCHC (RBC) [Mass/Vol] 34.1 g/dL [facility] MCV (RBC) [Entitic vol] 93.[address] [facility] Monocytes (Bld) [#/Vol] 0.5 10*3/uL X10 [facility] Monocytes/100 WBC (Bld) 7.1 % 0 - 10 % [facility] Neutrophils (Bld) [#/Vol] 4.9 10*3/uL [facility] Neutrophils/100 WBC (Bld) 64.9 % 37 - 75 % [facility] Platelet mean volume (Bld) [Entitic vol] 8.[address] [facility] Platelets (Bld) [#/Vol] 262 10*3/uL [facility] RBC (Bld) [#/Vol] 4.91 10*6/uL [facility] WBC (Bld) [#/Vol] 7.6 10*3/uL [facility] CMP FASTINGon 02-20-2019 A:G RATIO 1.6 RATIO Normal 1.3-2.2 [facility] Comment on above: Performed By: #### C MPF, LIPA2, ACBC, BNP #### [place] [address] Albumin mass conc 4.2 G/dl Normal 3.5-5.0 [facility] Comment on above: Performed By: #### C MPF, LIPA2, ACBC, BNP #### [place] [address] ALP enzyme act/vol 55 U/L Normal 38-126 [facility] Comment on above: Performed By: #### C MPF, LIPA2, ACBC, BNP #### [place] [address] ALT enzyme act/vol 22 U/L Normal 17-63 [facility] Comment on above: Performed By: #### C MPF, LIPA2, ACBC, BNP #### [place] [address] AST enzyme act/vol 25 U/L Normal 15-41 [facility] Comment on above: Performed By: #### C MPF, LIPA2, ACBC, BNP #### [place] [address] Bilirubin mass conc 0.6 mg/dL Normal 0.2-1.2 [facility] Comment on above: Performed By: #### C MPF, LIPA2, ACBC, BNP #### [place] [address] Creatinine mass conc 1.1 mg/dL Normal 0.66-1.25 [facility] Comment on above: Performed By: #### C MPF, LIPA2, ACBC, BNP #### [place] [address] EST. GFR, >60 Normal [facility] Comment on above: Performed By: #### C MPF, LIPA2, ACBC, BNP #### [place] [address] EST. GFR,Non >60 Normal [facility] Comment on above: Performed By: #### C MPF, LIPA2, ACBC, BNP #### [place] [address] GFR/1.73 sq M predicted among non-blacks MDRD vol rate/area (S/P/Bld) Average GFR for 60-69 years old = 85. Normal [facility] Comment on above: Result Comment: Diesel Fitter Mechanic funmilayo Kidney disease, GFR = <60. Kidney failure, GFR = <15. The GFR estimate is not adjusted for extreme body surface area or acute process, nor has it been validated for women or ethnic groups other than and . Performed By: #### C MPF, LIPA2, ACBC, BNP #### Testing performed at [address] [address] Protein mass conc 6.9 g/dL Normal 6.3-8.2 [facility] Comment on above: Performed By: #### C MPF, LIPA2, ACBC, BNP #### Testing performed at [address] [address] Urea nitrogen mass conc 12 mg/dL Normal 7-20 [facility] Comment on above: Performed By: #### C MPF, LIPA2, ACBC, BNP #### Testing performed at [address] [address] Calcium mass conc 9.0 mg/dL Normal 8.4-10.2 [facility] Comment on above: Performed By: #### C MPF, LIPA2, ACBC, BNP #### Testing performed at [address] [address] Chloride molar conc 107 mmol/L Normal 98-107 [facility] Comment on above: Performed By: #### C MPF, LIPA2, ACBC, BNP #### Testing performed at [address] [address] CO2 molar conc 21 mmol/L Low 22-30 [facility] Comment on above: Performed By: #### C MPF, LIPA2, ACBC, BNP #### Testing performed at [address] [address] Glucose mass conc 202 mg/dL High 70-100 [facility] Comment on above: Result Comment: NORMAL <100 mg/dL PREDIABETES 101-126 mg/dL DIABETES 126 mg/dL or higher Performed By: #### C MPF, LIPA2, ACBC, BNP #### Testing performed at [address] [address] Potassium molar conc 3.9 mmol/L Normal 3.5-5.1 [facility] Comment on above: Performed By: #### C MPF, LIPA2, ACBC, BNP #### Testing performed at [address] [address] Sodium molar conc 140 mmol/L Normal 136-145 [facility] Comment on above: Performed By: #### C MPF, LIPA2, ACBC, BNP #### Testing performed at [facility] [address] [place] [address] COMPREHENSIVE METABOLIC PANE Oliver 02-20-2019 Albumin [Mass/Vol] 4.2 G/dl 3.5 - 5 G/dl [facility] Albumin/Globulin [Mass ratio] 1.6 {ratio} [facility] ALP [Catalytic activity/Vol] 55 U/L [facility] ALT [Catalytic activity/Vol] 22 U/L [facility] AST [Catalytic activity/Vol] 25 U/L [facility] Bilirubin [Mass/Vol] 0.6 mg/dL [facility] Calcium [Mass/Vol] 9.0 mg/dL [facility] Chloride [Moles/Vol] 107 mmol/L [facility] CO2 [Moles/Vol] 21 mmol/L Low [facility] Creatinine [Mass/Vol] 1.1 mg/dL [facility] GFR/1.73 sq M predicted among blacks MDRD (S/P/Bld) [Vol rate/Area] mL/min/{1.73_m2} ml/min/1.73s q.m [facility] GFR/1.73 sq M predicted among non-blacks MDRD (S/P/Bld) [Vol rate/Area] Average GFR for 60-69 years old = 85. [facility] Comment on above: Chronic Kidney disea se, GFR = <60. Kidney failure, GFR = <15. The GFR estimate is not adjusted for extreme body surface area or acute process, nor has it been validated for women or ethnic groups other than and . GFR/1.73 sq M predicted among non-blacks MDRD (S/P/Bld) [Vol rate/Area] mL/min/{1.73_m2} ml/min/1.73s q.m [facility] Glucose post fast [Mass/Vol] 202 mg/dL High [facility] Comment on above: NORMAL <100 mg/dL PREDIABETES 101-126 mg/dL DIABETES 126 mg/dL or higher Interpretation and review of laboratory results Abnormal [facility] Potassium [Moles/Vol] 3.9 mmol/L [facility] Protein [Mass/Vol] 6.9 g/dL [facility] Sodium [Moles/Vol] 140 mmol/L [facility] Urea nitrogen [Mass/Vol] 12 mg/dL [facility] Penboost CT HEAD WITHOUT CONTRASTon 0 02-20-2019 CT HEAD WITHOUT CONTRAST EXAM: CT HEAD WITHOUT CONTRAST CLINICAL STATEMENT: Vertigo. COMPARISON: None. TECHNIQUE: CT examination of the head without IV contrast. Dose reduction techniques were achieved by using automated exposure control and/or adjustment of mA and/or kV according to patient size and/or use of iterative reconstruction technique. FINDINGS: CT head study was performed without the use of intravenous contrast. There is mild cerebral atrophy which is commensurate with the patient's age. No evidence of mass effect or midline shift. No acute intracranial hemorrhage is identified. No evidence of focal mass lesion is seen. Areas of mild decreased attenuation are noted in the white matter compatible with chronic ischemic changes. Calvarium is intact. Visualized mastoid air cells appear grossly unremarkable as do the intraorbital regions. A few small soft tissue densities less than 8 mm are noted in the right maxillary sinus, likely representing mucous retention cysts and/or polyps. IMPRESSION: CT head study demonstrates mild atrophy and mild white matter changes as described. No evidence of acute bleed or focal mass. Normal [facility] IMPRESSION: CT head study demonstrates mild atrophy and mild white matter changes as described. No evidence of acute bleed or focal mass. [facility] User, Interfaces - 02/20/2019 8:03 AM EDT EXAM: CT HEAD WITHOUT CONTRAST CLINICAL STATEMENT: Vertigo. COMPARISON: None. TECHNIQUE: CT examination of the head without IV contrast. Dose reduction techniques were achieved by using automated exposure control and/or adjustment of mA and/or kV according to patient size and/or use of iterative reconstruction technique. FINDINGS: CT head study was performed without the use of intravenous contrast. There is mild cerebral atrophy which is commensurate with the patient's age. No evidence of mass effect or midline shift. No acute intracranial hemorrhage is identified. No evidence of focal mass lesion is seen. Areas of mild decreased attenuation are noted in the white matter compatible with chronic ischemic changes. Calvarium is intact. Visualized mastoid air cells appear grossly unremarkable as do the intraorbital regions. A few small soft tissue densities less than 8 mm are noted in the right maxillary sinus, likely representing mucous retention cysts and/or polyps. IMPRESSION IMPRESSION: CT head study demonstrates mild atrophy and mild white matter changes as described. No evidence of acute bleed or focal mass. [facility] EXAM: CT HEAD WITHOU T CONTRAST CLINICAL STATEMENT: Vertigo. COMPARISON: None. TECHNIQUE: CT examination of the head without IV contrast. Dose reduction techniques were achieved by using automated exposure control and/or adjustment of mA and/or kV according to patient size and/or use of iterative reconstruction technique. FINDINGS: CT head study was performed without the use of intravenous contrast. There is mild cerebral atrophy which is commensurate with the patient's age. No evidence of mass effect or midline shift. No acute intracranial hemorrhage is identified. No evidence of focal mass lesion is seen. Areas of mild decreased attenuation are noted in the white matter compatible with chronic ischemic changes. Calvarium is intact. Visualized mastoid air cells appear grossly unremarkable as do the intraorbital regions. A few small soft tissue densities less than 8 mm are noted in the right maxillary sinus, likely representing mucous retention cysts and/or polyps. [facility] TROPONIN Ion 9 Troponin I.cardiac mass conc ng/mL Normal 0-0.08 [facility] Comment on above: Performed By: #### I TROT #### Testing performed at [address] [address] LIPASEon 02-20-2019 Lipase [Catalytic activity/Vol] 58 U/L 23 - 300 U/L [facility] LIPASE,SERUMon 02-20-2019 LIPASE,SERUM 58 U/L Normal 23-300 [facility] Comment on above: Performed By: #### C MPF, LIPA2, ACBC, BNP #### Testing performed at [address] [address] TROPONINon 02-20-2019 Troponin I.cardiac [Mass/Vol] ng/mL 0 - 0.08 ng/mL [facility] TSHon 02-20-2019 Thyrotropin Qn 2.197 uIU/ML Normal 0.45-5.33 [facility] Comment on above: Performed By: #### T SH2 #### Testing performed at [address] [address] TSH Qn 2.197 m[IU]/L [facility] H Vital Signs Date Time Vital Sign Value Performing Clinician Facility 05-02-2025 08:44-0400 Body height 163.2 cm Lulu Carson OVERNIGHT CASHIER-VOCATIONAL REHABILITATION ADMINISTRATOR Work Phone: [facility] 05-02-2025 08:44-0400 Body mass index (BMI) [Ratio] 30.35 kg/m2 Lulu Carson OVERNIGHT CASHIER-VOCATIONAL REHABILITATION ADMINISTRATOR Work Phone: [facility] 05-02-2025 08:44-0400 Body weight 80.83 kg Lulu Carson OVERNIGHT CASHIER-VOCATIONAL REHABILITATION ADMINISTRATOR Work Phone: [facility] 05-02-2025 08:44-0400 Diastolic blood pressure 90 mm[Hg] Lulu Carson OVERNIGHT CASHIER-VOCATIONAL REHABILITATION ADMINISTRATOR Work Phone: [facility] 05-02-2025 08:44-0400 Heart rate 93 /min Lulu Carson OVERNIGHT CASHIER-VOCATIONAL REHABILITATION ADMINISTRATOR Work Phone: [facility] 05-02-2025 08:44-0400 SaO2% (BldA) [Mass fraction] 95 % Lulu Carson OVERNIGHT CASHIER-VOCATIONAL REHABILITATION ADMINISTRATOR Work Phone: [facility] 05-02-2025 08:44-0400 Systolic blood pressure 140 mm[Hg] Lulu Carson OVERNIGHT CASHIER-VOCATIONAL REHABILITATION ADMINISTRATOR Work Phone: [facility] 03-02-2025 09:35-0400 Body height 163.2 cm Lulu Carson OVERNIGHT CASHIER-VOCATIONAL REHABILITATION ADMINISTRATOR Work Phone: [facility] 03-02-2025 09:35-0400 Body mass index (BMI) [Ratio] 29.81 kg/m2 Lulu Carson OVERNIGHT CASHIER-VOCATIONAL REHABILITATION ADMINISTRATOR Work Phone: [facility] 03-02-2025 09:35-0400 Body weight 79.38 kg Lulu Carson OVERNIGHT CASHIER-VOCATIONAL REHABILITATION ADMINISTRATOR Work Phone: [facility] 03-02-2025 09:35-0400 Diastolic blood pressure 80 mm[Hg] Lulu Carson OVERNIGHT CASHIER-VOCATIONAL REHABILITATION ADMINISTRATOR Work Phone: [facility] 03-02-2025 09:35-0400 Heart rate 61 /min Lulu Carson OVERNIGHT CASHIER-VOCATIONAL REHABILITATION ADMINISTRATOR Work Phone: [facility] 03-02-2025 09:35-0400 SaO2% (BldA) [Mass fraction] 99 % Lulu Carson OVERNIGHT CASHIER-VOCATIONAL REHABILITATION ADMINISTRATOR Work Phone: [facility] 03-02-2025 09:35-0400 Systolic blood pressure 122 mm[Hg] Lulu Carson OVERNIGHT CASHIER-VOCATIONAL REHABILITATION ADMINISTRATOR Work Phone: [facility] 12-21-2024 10:03-0500 Body height 161 cm Lulu Carson OVERNIGHT CASHIER-VOCATIONAL REHABILITATION ADMINISTRATOR Work Phone: [facility] 12-21-2024 10:03-0500 Body mass index (BMI) [Ratio] 30.61 kg/m2 Luluellis Carson OVERNIGHT CASHIER-VOCATIONAL REHABILITATION ADMINISTRATOR Work Phone: [facility] 12-21-2024 10:03-0500 Body weight 79.33 kg Luluellis Carson OVERNIGHT CASHIER-VOCATIONAL REHABILITATION ADMINISTRATOR Work Phone: [facility] 12-21-2024 10:03-0500 Diastolic blood pressure 70 mm[Hg] Luluellis Carson OVERNIGHT CASHIER-VOCATIONAL REHABILITATION ADMINISTRATOR Work Phone: [facility] 12-21-2024 10:03-0500 Heart rate 96 /min Luluellis Carson OVERNIGHT CASHIER-VOCATIONAL REHABILITATION ADMINISTRATOR Work Phone: [facility] 12-21-2024 10:03-0500 SaO2% (BldA) [Mass fraction] 95 % Lulu Carson OVERNIGHT CASHIER-VOCATIONAL REHABILITATION ADMINISTRATOR Work Phone: [facility] 12-21-2024 10:03-0500 Systolic blood pressure 114 mm[Hg] Lulu Carson OVERNIGHT CASHIER-VOCATIONAL REHABILITATION ADMINISTRATOR Work Phone: [facility] 10-09-2024 13:40-0500 Body height 167.6 cm Emanuel Kwong MD Work Phone: [facility] 10-09-2024 13:40-0500 Body mass index (BMI) [Ratio] 27.12 kg/m2 Emanuel Kwong MD Work Phone: [facility] 10-09-2024 13:40-0500 Body weight 76.2 kg Emanuel Kwong MD Work Phone: [facility] 10-09-2024 13:40-0500 Diastolic blood pressure 56 mm[Hg] Emanuel Kwong MD Work Phone: [facility] 10-09-2024 13:40-0500 Heart rate 81 /min Emanuel Kwong MD Work Phone: [facility] 10-09-2024 13:40-0500 SaO2% (BldA) [Mass fraction] 92 % Emanuel Kwong MD Work Phone: [facility] 10-09-2024 13:40-0500 Systolic blood pressure 80 mm[Hg] Emanuel Kwong MD Work Phone: [facility] 10-04-2024 08:04-0500 Body temperature 98.4 [degF] Elisabeth Atkins MD Work Phone: [facility] 10-04-2024 08:04-0500 Diastolic blood pressure 72 mm[Hg] Elisabeth Atkins MD Work Phone: [facility] 10-04-2024 08:04-0500 Respiratory rate 18 /min Elisabeth Atkins MD Work Phone: [facility] 10-04-2024 08:04-0500 SaO2% (BldA) [Mass fraction] 94 % Elisabeth Atkins MD Work Phone: [facility] 10-04-2024 08:04-0500 Systolic blood pressure 103 mm[Hg] Elisabeth Atkins MD Work Phone: [facility] 10-04-2024 05:04-0500 Body mass index (BMI) [Ratio] 27.89 kg/m2 Elisabeth Atkins MD Work Phone: [facility] 10-04-2024 05:04-0500 Body weight 78.38 kg Elisabeth Atkins MD Work Phone: [facility] 10-04-2024 05:04-0500 Heart rate 85 /min Elisabeth Atkins MD Work Phone: [facility] 09-28-2024 00:35-0500 Body temperature 37 Elisabeth Atkins MD Work Phone: [facility] 09-28-2024 00:35-0500 SaO2% (BldA) [Mass fraction] 97 % Elisabeth Atkins MD Work Phone: [facility] 09-28-2024 00:27-0500 Body temperature 37.0 degrees Celsius ELISABETH ATKINS [facility] Comment on above: Performed By: #### 1969-7 #### PATRICIA Groves ([id number]) [facility] ([facility]) [address] [place] [address] 09-28-2024 00:27-0500 SaO2% (BldA) [Mass fraction] 97 % [facility] Comment on above: Performed By: #### 1969-7 #### PATRICIA Groves ([id number]) [facility] ([facility]) [address] [place] [address] 09-27-2024 21:38-0500 Body temperature 37 Elisabeth Atkins MD Work Phone: [facility] 09-27-2024 21:38-0500 SaO2% (BldA) [Mass fraction] 98 % Elisabeth Atkins MD Work Phone: [facility] 09-27-2024 21:32-0500 Body temperature 37.0 degrees Celsius ELISABETH ATKINS [facility] Comment on above: Performed By: #### 52250-5 #### PATRICIA Groves ([id number]) [facility] ([facility]) [address] [place] [address] 09-27-2024 21:32-0500 SaO2% (BldA) [Mass fraction] 98 % [facility] Comment on above: Performed By: #### 94615-0 #### PATRICIA Groves ([id number]) [facility] ([facility]) [address] [place] [address] 09-27-2024 15:19-0500 Body temperature 37 Elisabeth Atkins MD Work Phone: [facility] 09-27-2024 15:19-0500 SaO2% (BldA) [Mass fraction] 100 % Elisabeth Atkins MD Work Phone: [facility] 09-27-2024 15:15-0500 Body temperature 37.0 degrees Celsius ELISABETH ATKINS [facility] Comment on above: Performed By: #### 31503-9 #### PATRICIA Groves ([id number]) [facility] ([facility]) [address] [place] [address] 09-27-2024 15:15-0500 SaO2% (BldA) [Mass fraction] 100 % ELISABETHSANDRA ATKINS [facility] Comment on above: Performed By: #### 33785-4 #### PATRICIA Groves ([id number]) [facility] ([facility]) [address] [place] [address] 09-27-2024 12:43-0500 Body temperature 37 Elisabeth Atkins MD Work Phone: [facility] 09-27-2024 12:43-0500 SaO2% (BldA) [Mass fraction] 100 % Elisabeth Atkins MD Work Phone: [facility] 09-27-2024 12:42-0500 Body temperature 37.0 degrees Celsius ELISABETH ATKINS [facility] Comment on above: Result Comment: NOTE: Patient Results ar e Not Corrected for Temperature Performed By: #### 1 988-5 #### PATRICIA Groves ([id number]) [facility] ([facility]) [address] [place] [address] 09-27-2024 12:42-0500 SaO2% (BldA) [Mass fraction] 100 % ELISABETH ATKINS [facility] Comment on above: Performed By: #### 1987-5 #### PATRICIA Groves ([id number]) [facility] ([facility]) [address] [place] [address] 09-27-2024 12:12-0500 Body temperature 37 Elisabeth Atkins MD Work Phone: [facility] 09-27-2024 12:12-0500 SaO2% (BldA) [Mass fraction] 100 % Elisabeth Atkins MD Work Phone: [facility] 09-27-2024 12:10-0500 Body temperature 37.0 degrees Celsius ELISABETH ATKINS [facility] Comment on above: Result Comment: NOTE: Patient Results ar e Not Corrected for Temperature Performed By: #### 1 988-5 #### PATRICIA Groves ([id number]) [facility] ([facility]) [address] [place] [address] 09-27-2024 12:10-0500 SaO2% (BldA) [Mass fraction] 100 % ELISABETH ATKINS [facility] Comment on above: Performed By: #### 1988-03 #### PATRICIA Groves ([id number]) [facility] ([facility]) [address] [place] [address] 09-27-2024 11:41-0500 Body temperature 37 Elisabeth Atkins MD Work Phone: [facility] 09-27-2024 11:41-0500 SaO2% (BldA) [Mass fraction] 99 % Elisabeth Atkins MD Work Phone: [facility] 09-27-2024 11:40-0500 Body temperature 37.0 degrees Celsius ELISABETH ATKINS [facility] Comment on above: Result Comment: NOTE: Patient Results ar e Not Corrected for Temperature Performed By: #### 1 988-5 #### PATRICIA Groves ([id number]) [facility] ([facility]) [address] [place] [address] 09-27-2024 11:40-0500 SaO2% (BldA) [Mass fraction] 99 % ELISABETHSANDRA ATKINS [facility] Comment on above: Performed By: #### 1988-5 #### PATRICIA Groves ([id number]) [facility] ([facility]) [address] [place] [address] 09-27-2024 11:03-0500 Body temperature 37 Elisabeth Atkins MD Work Phone: [facility] 09-27-2024 11:03-0500 SaO2% (BldA) [Mass fraction] 99 % Elisabeth Atkins MD Work Phone: [facility] 09-27-2024 11:02-0500 Body temperature 37.0 degrees Celsius ELISABETH ATKINS [facility] Comment on above: Result Comment: NOTE: Patient Results ar e Not Corrected for Temperature Performed By: #### 3 4529-8 #### PATRICIA Groves ([id number]) [facility] ([facility]) [address] [place] [address] 09-27-2024 11:02-0500 SaO2% (BldA) [Mass fraction] 99 % ELISABETH ATKINS [facility] Comment on above: Performed By: #### 05566-4 #### PATRICIA Groves ([id number]) [facility] ([facility]) [address] [place] [address] 09-27-2024 09:57-0500 Body temperature 37 Elisabeth Atkins MD Work Phone: [facility] 09-27-2024 09:57-0500 SaO2% (BldA) [Mass fraction] 100 % Elisabeth Atkins MD Work Phone: [facility] 09-27-2024 09:55-0500 Body temperature 37.0 degrees Celsius ELISABETHSANDRA ATKINS [facility] Comment on above: Result Comment: NOTE: Patient Results ar e Not Corrected for Temperature Performed By: #### 3 4529-8 #### PATRICIA Groves ([id number]) [facility] ([facility]) [address] [place] [address] 09-27-2024 09:55-0500 SaO2% (BldA) [Mass fraction] 100 % ELISABETH ATKINS [facility] Comment on above: Performed By: #### 31045-7 #### PATRICIA Groves ([id number]) [facility] ([facility]) [address] [place] [address] 09-27-2024 08:38-0500 Body temperature 37 Elisabeth Atkins MD Work Phone: [facility] 09-27-2024 08:38-0500 SaO2% (BldA) [Mass fraction] 98 % Elisabeth Atkins MD Work Phone: [facility] 09-27-2024 08:37-0500 Body temperature 37.0 degrees Celsius ELISABETH ATKINS [facility] Comment on above: Result Comment: NOTE: Patient Results ar e Not Corrected for Temperature Performed By: #### 3 4529-8 #### PATRICIA Groves ([id number]) [facility] ([facility]) [address] [place] [address] 09-27-2024 08:37-0500 SaO2% (BldA) [Mass fraction] 98 % ELISABETH ATKINS [facility] Comment on above: Performed By: #### 59986-9 #### PATRICIA Groves ([id number]) [facility] ([facility]) [address] [place] [address] 09-27-2024 06:45-0500 Body height 167.6 cm Elisabeth Atkins MD Work Phone: [facility] 09-11-2024 15:05-0400 Diastolic blood pressure 64 mm[Hg] Laura Tramte OVERNIGHT CASHIER-VOCATIONAL REHABILITATION ADMINISTRATOR Work Phone: [facility] 09-11-2024 15:05-0400 Systolic blood pressure 105 mm[Hg] Laura Tramte OVERNIGHT CASHIER-VOCATIONAL REHABILITATION ADMINISTRATOR Work Phone: [facility] 09-11-2024 15:04-0400 Body height 167.6 cm Lauralily Erickson OVERNIGHT CASHIER-VOCATIONAL REHABILITATION ADMINISTRATOR Work Phone: [facility] 09-11-2024 15:04-0400 Body mass index (BMI) [Ratio] 28.73 kg/m2 Laura Georgina OVERNIGHT CASHIER-VOCATIONAL REHABILITATION ADMINISTRATOR Work Phone: [facility] 09-11-2024 15:04-0400 Body weight 80.74 kg Laura Connerte OVERNIGHT CASHIER-VOCATIONAL REHABILITATION ADMINISTRATOR Work Phone: [facility] 09-11-2024 15:04-0400 Heart rate 74 /min Laura Connerte OVERNIGHT CASHIER-VOCATIONAL REHABILITATION ADMINISTRATOR Work Phone: [facility] 09-11-2024 15:04-0400 SaO2% (BldA) [Mass fraction] 91 % Laura Connerte OVERNIGHT CASHIER-VOCATIONAL REHABILITATION ADMINISTRATOR Work Phone: [facility] 09-05-2024 14:45-0400 Body height 175.3 cm Virginia Putnam MD Work Phone: [facility] 09-05-2024 14:45-0400 Diastolic blood pressure 62 mm[Hg] Virginia Putnam MD Work Phone: [facility] 09-05-2024 14:45-0400 Heart rate 78 /min Virginia Putnam MD Work Phone: [facility] 09-05-2024 14:45-0400 Systolic blood pressure 122 mm[Hg] Virginia Putnam MD Work Phone: [facility] 08-30-2024 15:24-0400 Body height 175.3 cm Elisabeth Atkins MD Work Phone: [facility] 08-30-2024 15:24-0400 Body mass index (BMI) [Ratio] 25.55 kg/m2 Elisabeth Atkins MD Work Phone: [facility] 08-30-2024 15:24-0400 Body weight 78.47 kg Elisabeth Atkins MD Work Phone: [facility] 08-30-2024 15:24-0400 Diastolic blood pressure 69 mm[Hg] Elisabeth Atkins MD Work Phone: [facility] 08-30-2024 15:24-0400 Heart rate 69 /min Elisabeth Atkins MD Work Phone: [facility] 08-30-2024 15:24-0400 SaO2% (BldA) [Mass fraction] 92 % Elisabeth Atkins MD Work Phone: [facility] 08-30-2024 15:24-0400 Systolic blood pressure 116 mm[Hg] Elisabeth Atkins MD Work Phone: [facility] 07-13-2024 14:51-0400 Body temperature 97.3 [degF] Virginia Hernandez DO Work Phone: [facility] 07-13-2024 14:51-0400 Diastolic blood pressure 73 mm[Hg] Virginia Hernandez DO Work Phone: [phone] [place] [address] 07-13-2024 14:51-0400 Heart rate 83 /min Virginia Hernandez DO Work Phone: [phone])[phone] [place] [address] 07-13-2024 14:51-0400 Respiratory rate 20 /min Virginia Hernandez DO Work Phone: [facility] 07-13-2024 14:51-0400 SaO2% (BldA) [Mass fraction] 91 % Virginia Hernandez DO Work Phone: [facility] 07-13-2024 14:51-0400 Systolic blood pressure 137 mm[Hg] Virginia Hernandez DO Work Phone: [facility] 07-08-2024 03:30-0400 Body height 165.1 cm Virginia Hernandez DO Work Phone: [facility] 07-08-2024 03:30-0400 Body mass index (BMI) [Ratio] 31.4 kg/m2 Virginia Hernandez DO Work Phone: [facility] 07-08-2024 03:30-0400 Body weight 85.6 kg Virginia Hernandez DO Work Phone: [facility] 02-20-2019 10:26-0400 Body Temperature 98.29 [degF] [facility]-20-[facility] 10:26-0400 BP Diastolic 84 mm[Hg] [facility] 02-20-2019 10:26-0400 BP Systolic 156 mm[Hg] [facility] 02-20-2019 10:26-0400 Pulse (Heart Rate) 79 /min [facility] 02-20-2019 10:26-0400 Pulse Oximetry 97 % [facility] 02-20-2019 10:26-0400 Respiratory Rate 16 /min [facility] 02-20-2019 06:57-0400 BMI (Body Mass Index) 31.62 kg/m2 [facility] 02-20-2019 06:57-0400 Body weight 86.18 kg [facility] Comment on above: stated 02-20-2019 06:57-0400 Height 165.1 [facility] Encounters Encounter Date Encounter Type Care Provider Facility Start: 05-02-2025 End: 05-02-2025 Office outpatient visit 25 minutes Lulu Carson OVERNIGHT CASHIER-VOCATIONAL REHABILITATION ADMINISTRATOR Work Phone: [facility] Comment on above: Primary hypertension (Primary Dx); S/P CABG (coronary artery bypass graft); Depression, unspecified depression type Start: 05-02-2025 End: 05-02-2025 ambulatory [facility] Start: 03-12-2025 End: 03-12-2025 ambulatory [facility] Start: 03-08-2025 End: 03-08-2025 ambulatory [facility] Start: 03-02-2025 End: 03-02-2025 ambulatory [facility] Start: 03-02-2025 End: 03-02-2025 Office outpatient visit 25 minutes Lulu Carson OVERNIGHT CASHIER-VOCATIONAL REHABILITATION ADMINISTRATOR Work Phone: [facility] Comment on above: Cerebrovascular acci dent (CVA), unspecified mechanism (Multi) (Primary Dx) Start: 12-21-2024 End: 12-21-2024 Office outpatient visit 25 minutes Lulu Carson OVERNIGHT CASHIER-VOCATIONAL REHABILITATION ADMINISTRATOR Work Phone: [facility] Comment on above: Routine general medi nahid examination at a health care facility (Primary Dx); S/P CABG (coronary artery bypass graft); Anemia, unspecified type; Cerebrovascular accident (CVA), unspecified mechanism (Multi) Start: 12-21-2024 End: 12-21-2024 Patient encounter status Lulu Carson OVERNIGHT CASHIER-VOCATIONAL REHABILITATION ADMINISTRATOR Work Phone: [facility] Work Phone: Start: 12-21-2024 End: 12-21-2024 ambulatory [facility] Start: 12-21-2024 End: 12-21-2024 Encounter for general adult medical [facility] Start: 12-13-2024 End: 12-13-2024 [facility] department [facility] Start: 11-08-2024 End: 11-08-2024 Postop follow up visit related to original px Elisabeth Atkins MD Work Phone: [facility] Comment on above: Coronary artery dise ase involving [place] coronary artery of [place] heart, unspecified whether angina present (Primary Dx); S/P CABG (coronary artery bypass graft) Start: 11-08-2024 End: 11-08-[address] [facility] Start: 11-07-2024 End: 11-07-2024 Subsequent hospital visit by physician Graham [facility] 1 [facility] Comment on above: Coronary artery dise ase involving [place] coronary artery of [place] heart, unspecified whether angina present Start: 11-07-2024 End: 11-07-2024 ambulatory ELISABETH ATKINS [facility] Start: 10-09-2024 End: 10-09-2024 Office outpatient new 60 minutes Emanuel Kwong MD Work Phone: [facility] Comment on above: Primary hypertension (Primary Dx); Coronary artery disease involving [place] coronary artery of [place] heart, unspecified whether angina present; Pure hypercholesterolemia; S/P CABG x 3 Start: 10-09-2024 End: 10-09-2024 ambulatory EMANUEL NORTON [facility] Start: 09-27-2024 End: 09-27-2024 Subsequent hospital visit by physician Natalie Villa [facility] [place] Comment on above: Arrived Start: 09-27-2024 End: 09-27-[address] [facility] Start: 09-27-2024 End: 09-27-2024 Subsequent hospital visit by physician Natalie [facility] [place] Comment on above: Arrived Start: 09-27-2024 End: 09-27-2024 ambulatory JEAN-PAUL JOHNSON [facility] Start: 09-27-2024 End: 10-04-2024 Evaluation and management of inpatient Elisabeth Atkins MD Work Phone: [facility] 3 Start: 09-20-2024 End: 09-20-2024 Patient encounter status [facility] Start: 09-20-2024 End: 09-20-2024 Subsequent hospital visit by physician Natalie Banks 4 [facility] Comment on above: Arrived Coronary artery dise ase involving [place] coronary artery of [place] heart without angina pectoris; History of stroke with residual deficit; Encounter for other preprocedural examination; Other specified symptoms and signs involving the circulatory and respiratory systems Start: 09-20-2024 End: 09-20-[address] [facility] Start: 09-19-2024 End: 09-19-2024 Subsequent hospital visit by physician Natalie [place] X-[facility] 1 [facility] Comment on above: Coronary artery dise ase involving [place] coronary artery of [place] heart, unspecified whether angina present Start: 09-19-2024 End: 09-19-[address] [facility] Start: 09-19-2024 End: 09-19-[address] [facility] Start: 09-19-2024 End: 09-19-2024 Encounter for other preprocedural examination ELISABETH ATKINS [facility] Start: 09-19-2024 End: 09-19-2024 Encounter for preprocedural cardiovascular examination ELISABETH ATKINS [facility] Start: 09-19-2024 End: 09-19-2024 Encounter for preprocedural respiratory examination ELISABETH ATKINS [facility] Start: 09-15-2024 End: 09-15-2024 Patient encounter status [address] Start: 09-15-2024 End: 09-15-2024 Subsequent hospital visit by physician Graham Elias[address] Comment on above: Coronary artery dise ase involving [place] coronary artery of [place] heart, unspecified whether angina present; Encounter for preprocedural cardiovascular examination Coronary artery dise ase involving [place] coronary artery of [place] heart, unspecified whether angina present Start: 09-15-2024 End: 09-15-2024 ambulatory ELISABETH ATKINS [facility] Start: 09-15-2024 End: 09-15-2024 Encounter for preprocedural cardiovascular examination ELISABETH ATKINS [facility] Start: 09-11-2024 End: 09-11-2024 Office outpatient new 30 minutes Laura TURCIOS Work Phone: [facility] Comment on above: Coronary artery dise ase involving [place] coronary artery of [place] heart without angina pectoris (Primary Dx); History of stroke with residual deficit Start: 09-11-2024 End: 09-11-[address] [facility] Start: 09-05-2024 End: 09-05-2024 Office outpatient visit 40 minutes Virginia Putnam MD Work Phone: [facility] Comment on above: History of stroke wi th residual deficit (Primary Dx) Start: 09-05-2024 End: 09-05-2024 ambulatory VIRGINIA PUTNAM [facility] Start: 08-30-2024 End: 08-30-[address] [facility] Start: 08-30-2024 End: 08-30-2024 Office outpatient new 60 minutes Elisabeth Atkins MD Work Phone: [facility] Comment on above: Coronary artery dise ase involving [place] coronary artery of [place] heart, unspecified whether angina present (Primary Dx); Chest pain, unspecified type; Cerebrovascular accident (CVA), unspecified mechanism (Multi) Start: 07-25-2024 End: 07-25-2024 ambulatory Lorraine Meza Facility:[facility] Start: 07-13-2024 ambulatory KaylaGisselle West Facility:[facility] Start: 07-13-2024 End: 08-05-2024 Evaluation and management of inpatient Lorraine Meza Facility:[facility] Start: 07-07-2024 End: 07-13-2024 Evaluation and management of inpatient Virginia Hernandez DO Work Phone: [facility] 3 Comment on above: TIA (transient ische frandy attack) (Primary Dx); Elevated troponin level; Non-ST elevation (NSTEMI) myocardial infarction (Multi); Dysphagia due to recent cerebrovascular accident (CVA) [I69.391]; 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]; CVA (cerebrovascular accident due to intracerebral hemorrhage) (Multi); Constipation, unspecified constipation type; Upper respiratory tract infection, unspecified type Start: 02-22-2019 End: 02-23-2019 Patient encounter procedure Trinity James Facility:[facility] Start: 02-20-2019 End: 02-20-2019 Emergency department patient visit DARWIN TONY [facility] Start: 02-20-2019 End: 02-20-2019 Emergency department patient visit Darwin Tony Work Phone: [facility] Start: 12-05-2018 Patient encounter procedure Debbie Barba Facility:[facility] Procedures Date Procedure Procedure Detail Performing Clinician Start: 10-09-2024 Ecg routine ecg w/least 12 lds w/i&r Emanuel Buddy Kwong MD Work Phone: Start: 10-04-2024 History of coronary artery bypass grafting Elisabeth Atkins MD Work Phone: Start: 10-04-2024 Renal function panel Tamanna Lilly OVERNIGHT CASHIER-C SHIPPING RECEIVING MANAGER Work Phone: Start: 10-03-2024 Sars-cov-2 detection by dna/rna Mercedes Todd OVERNIGHT CASHIER-VOCATIONAL REHABILITATION ADMINISTRATOR Work Phone: Start: 10-03-2024 Renal function panel Tamanna Lilly OVERNIGHT CASHIER-C SHIPPING RECEIVING MANAGER Work Phone: Start: 10-03-2024 Radiologic exam chest single view Rebeccaheather Courtney OVERNIGHT CASHIER-VOCATIONAL REHABILITATION ADMINISTRATOR Work Phone: Start: 10-02-2024 Renal function panel Tamanna Lilly OVERNIGHT CASHIER-C SHIPPING RECEIVING MANAGER Work Phone: Start: 10-02-2024 Radiologic exam chest single view Rebecca Courtney OVERNIGHT CASHIER-VOCATIONAL REHABILITATION ADMINISTRATOR Work Phone: Start: 10-01-2024 Glucose quantitative blood xcpt reagent strip Elisabeth Atkins MD Work Phone: Start: 10-01-2024 Glucose quantitative blood xcpt reagent strip Elisabeth Atkins MD Work Phone: Start: 10-01-2024 Radiologic exam chest 2 views Marvajohana Funes OVERNIGHT CASHIER-VOCATIONAL REHABILITATION ADMINISTRATOR Work Phone: Start: 10-01-2024 Glucose quantitative blood xcpt reagent strip Elisabeth Atkins MD Work Phone: Start: 10-01-2024 End: 10-01-2024 Renal function panel Tamanna Lilly OVERNIGHT CASHIER-C SHIPPING RECEIVING MANAGER Work Phone: Start: 09-30-2024 Glucose quantitative blood xcpt reagent strip Elisabeth Atkins MD Work Phone: Start: 09-30-2024 Glucose quantitative blood xcpt reagent strip Elisabeth Atkins MD Work Phone: Start: 09-30-2024 Glucose quantitative blood xcpt reagent strip Elisabeth Atkins MD Work Phone: Start: 09-30-2024 Radiologic exam chest single view Marva L Simi OVERNIGHT CASHIER-VOCATIONAL REHABILITATION ADMINISTRATOR Work Phone: Start: 09-30-2024 Glucose quantitative blood xcpt reagent strip Elisabeth Atkins MD Work Phone: Start: 09-30-2024 Renal function panel Tamanna Lilly OVERNIGHT CASHIER-C SHIPPING RECEIVING MANAGER Work Phone: Start: 09-30-2024 Radiologic exam chest single view Rebecca Courtney OVERNIGHT CASHIER-VOCATIONAL REHABILITATION ADMINISTRATOR Work Phone: Start: 09-29-2024 Glucose quantitative blood xcpt reagent strip Elisabeth Atkins MD Work Phone: Start: 09-29-2024 Glucose quantitative blood xcpt reagent strip Elisabeth Atkins MD Work Phone: Start: 09-29-2024 Glucose quantitative blood xcpt reagent strip Elisabeth Atkins MD Work Phone: Start: 09-29-2024 Glucose quantitative blood xcpt reagent strip Elisabeth Atkins MD Work Phone: Start: 09-29-2024 Renal function panel Rebecca Courtney APR N-VOCATIONAL REHABILITATION ADMINISTRATOR Work Phone: Start: 09-29-2024 Radiologic exam chest single view Rebecca Courtney OVERNIGHT CASHIER-VOCATIONAL REHABILITATION ADMINISTRATOR Work Phone: Start: 09-28-2024 Glucose quantitative blood xcpt reagent strip Elisabeth Atkins MD Work Phone: Start: 09-28-2024 Glucose quantitative blood xcpt reagent strip Elisabeth Atkins MD Work Phone: Start: 09-28-2024 PULSE OXIMETRY, SPOT Rebecca Courtney APR N-VOCATIONAL REHABILITATION ADMINISTRATOR Work Phone: Start: 09-28-2024 Ecg routine ecg w/least 12 lds trcg only w/o i&r Rebecca Courtney OVERNIGHT CASHIER-VOCATIONAL REHABILITATION ADMINISTRATOR Work Phone: Start: 09-28-2024 PULSE OXIMETRY, SPOT Rebecca Courtney APR N-VOCATIONAL REHABILITATION ADMINISTRATOR Work Phone: Start: 09-28-2024 End: 09-28-2024 Glucose quantitative blood xcpt reagent strip Elisabeth Atkins MD Work Phone: Start: 09-28-2024 PULSE OXIMETRY, SPOT Rebecca Courtney APR N-VOCATIONAL REHABILITATION ADMINISTRATOR Work Phone: Start: 09-28-2024 Glucose quantitative blood xcpt reagent strip Elisabeth Atkins MD Work Phone: Start: 09-28-2024 Radiologic exam chest single view Rebecca Courtney OVERNIGHT CASHIER-VOCATIONAL REHABILITATION ADMINISTRATOR Work Phone: Start: 09-28-2024 End: 09-28-2024 Chloride saul Cheney MD Work Phone: Start: 09-27-2024 EXTUBATION Edgar Dunaway MD Work Phone: Start: 09-27-2024 Chloride saul Cheney MD Work Phone: Start: 09-27-2024 Glucose quantitative blood xcpt reagent strip Elisabeth Atkins MD Work Phone: Start: 09-27-2024 End: 09-27-2024 Chloride saul Cheney MD Work Phone: Start: 09-27-2024 Radiologic exam chest single view Jamison Cheney MD Work Phone: Start: 09-27-2024 PULSE OXIMETRY, CONTINUOUS Jamison Cheney MD Work Phone: Start: 09-27-2024 Fibrinogen activity Interface Unspecifiedprovider Work Phone: Start: 09-27-2024 End: 09-27-2024 Coagulation time activated Interface Unspecifiedprovider Work Phone: Start: 09-27-2024 End: 09-27-2024 Coagulation time activated Interface Unspecifiedprovider Work Phone: Start: 09-27-2024 End: 09-27-2024 Fibrinogen activity Interface Unspecifiedprovider Work Phone: Start: 09-27-2024 Coagulation time activated Interface Unspecifiedprovider Work Phone: Start: 09-27-2024 End: 09-27-2024 Cabg w/arterial graft three arterial grafts Elisabeth Atkins MD Work Phone: Start: 09-27-2024 PREPARE RBC Yi GARZA Work Phone: Start: 09-27-2024 VERAB/VERIFY NOLVIAH Jean-Paul Johnson MD Work Phone: Start: 09-27-2024 ANESTHESIA INTRAOPERATIVE KEATON Jamison Cheney MD Work Phone: Start: 09-20-2024 Duplex scan extracranial art compl bi study Laura Winchester Tramte OVERNIGHT CASHIER-VOCATIONAL REHABILITATION ADMINISTRATOR Work Phone: Start: 09-20-2024 Non-invas physiologic std extremity art 2 level Laura Erickson OVERNIGHT CASHIER-VOCATIONAL REHABILITATION ADMINISTRATOR Work Phone: Start: 09-15-2024 Dup-scan xtr veins complete bilateral study Elisabeth Atkins MD Work Phone: Start: 07-13-2024 Glucose quantitative blood xcpt reagent strip Candelario Montana MD Work Phone: Start: 07-13-2024 Glucose quantitative blood xcpt reagent strip Candelario Montana MD Work Phone: Start: 07-13-2024 Glucose quantitative blood xcpt reagent strip Candelario Montana MD Work Phone: Start: 07-13-2024 Basic metabolic panel calcium total Candelario Montana MD Work Phone: Start: 07-12-2024 Glucose quantitative blood xcpt reagent strip Candelario Montana MD Work Phone: Start: 07-12-2024 Glucose quantitative blood xcpt reagent strip Candelario Montana MD Work Phone: Start: 07-12-2024 Glucose quantitative blood xcpt reagent strip Candelario Montana MD Work Phone: Start: 07-12-2024 Glucose quantitative blood xcpt reagent strip Candelario Montana MD Work Phone: Start: 07-12-2024 Basic metabolic panel calcium total Candelario Montana MD Work Phone: Start: 07-11-2024 Glucose quantitative blood xcpt reagent strip Candelario Montana MD Work Phone: Start: 07-11-2024 Glucose quantitative blood xcpt reagent strip Candelario Montana MD Work Phone: Start: 07-11-2024 Glucose quantitative blood xcpt reagent strip Candelario Montana MD Work Phone: Start: 07-11-2024 Cardiac catheterization Emanuel Kwong MD Work Phone: Start: 07-11-2024 Cardiac catheterization study Emanuel Kwong MD Work Phone: Start: 07-11-2024 Glucose quantitative blood xcpt reagent strip Candelario Montana MD Work Phone: Start: 07-11-2024 Basic metabolic panel calcium total Candelario Montana MD Work Phone: Start: 07-11-2024 PULSE OXIMETRY, SPOT Candelario Montana MD Work Phone: Start: 07-11-2024 End: 07-11-2024 PULSE OXIMETRY, SPOT Candelario Montana MD Work Phone: Start: 07-10-2024 Glucose quantitative blood xcpt reagent strip Candelario Montana MD Work Phone: Start: 07-10-2024 PULSE OXIMETRY, SPOT Candelario Montana MD Work Phone: Start: 07-10-2024 Glucose quantitative blood xcpt reagent strip Candelario Montana MD Work Phone: Start: 07-10-2024 PULSE OXIMETRY, SPOT Candelario Montana MD Work Phone: Start: 07-10-2024 Glucose quantitative blood xcpt reagent strip Candelario Montana MD Work Phone: Start: 07-10-2024 PULSE OXIMETRY, SPOT Candelario Montana MD Work Phone: Start: 07-10-2024 Glucose quantitative blood xcpt reagent strip Candelario Montana MD Work Phone: Start: 07-10-2024 Mri brain brain stem w/o w/contrast material Ghanshyam Kearns DO Work Phone: Start: 07-10-2024 Echo tthrc r-t 2d w/wom-mode compl spec&colr d Ghanshyam Kearns DO Work Phone: Start: 07-10-2024 Basic metabolic panel calcium total Candelario Montana MD Work Phone: Start: 07-10-2024 PULSE OXIMETRY, SPOT Candelario Montana MD Work Phone: Start: 07-10-2024 PULSE OXIMETRY, SPOT Candelario Montana MD Work Phone: Start: 07-09-2024 Glucose quantitative blood xcpt reagent strip Candelario Montana MD Work Phone: Start: 07-09-2024 PULSE OXIMETRY, SPOT Candelario Montana MD Work Phone: Start: 07-09-2024 PULSE OXIMETRY, SPOT Candelario Montana MD Work Phone: Start: 07-09-2024 End: 07-09-2024 Glucose quantitative blood xcpt reagent strip Candelario Montana MD Work Phone: Start: 07-09-2024 RESPIRATORY CARE EVALUATION ONLY Candelario Montana MD Work Phone: Start: 07-09-2024 PULSE OXIMETRY, SPOT Candelario Montana MD Work Phone: Start: 07-09-2024 Ct head/brain w/o contrast material Candelario Montana MD Work Phone: Start: 07-09-2024 Glucose quantitative blood xcpt reagent strip Candelario Montana MD Work Phone: Start: 07-09-2024 PULSE OXIMETRY, SPOT Candelario Montana MD Work Phone: Start: 07-09-2024 Basic metabolic panel calcium total Candelario Montana MD Work Phone: Start: 07-08-2024 Heparin assay Candelario Montana MD Work Phone: Start: 07-08-2024 Heparin assay Ghanshyam Kearns DO Work Phone: Start: 07-08-2024 EXTRA TUBES Candelario Montana MD Work Phone: Start: 07-08-2024 SST TOP Candelario Montana MD Work Phone: Start: 07-08-2024 Heparin assay Ghanshyam Kearns DO Work Phone: Start: 07-08-2024 End: 07-08-2024 Basic metabolic panel calcium total Ghanshyam Kearns DO Work Phone: Start: 07-08-2024 Lipid panel Ghanshyam Kearns DO Work Phone: Start: 07-08-2024 Lipid 1996 panel - Serum or Plasma Virginia Hernandez DO Work Phone: Start: 07-08-2024 Ct angiography head w/contrast/noncontrast Virginia W Hernandez DO Work Phone: Start: 07-07-2024 EXTRA TUBES Virginia W Hernandez DO Work Phone: Start: 07-07-2024 SST TOP Virginia W Hernandez DO Work Phone: Start: 07-07-2024 Assay of troponin quantitative Virginia W Hernandez DO Work Phone: Start: 07-07-2024 End: 07-07-2024 Comprehensive metabolic panel Virginia W Hernandez DO Work Phone: Start: 07-07-2024 Ct head/brain w/o contrast material Virginia W Hernandez DO Work Phone: Start: 07-07-2024 Ecg routine ecg w/least 12 lds i&r only Virginia W Hernandez DO Work Phone: Start: 07-07-2024 PULSE OXIMETRY, CONTINUOUS Virginia Hernandez DO Work Phone: Start: 02-20-2019 CT of entire head Darwin Tony Work Phone: Start: 02-20-2019 Assay of lipase Darwin Tony Work Phone: Start: 02-20-2019 Assay of thyroid stimulating hormone tsh Darwin Tony Work Phone: Start: 02-20-2019 Assay of troponin quantitative Neel Bolaños Work Phone: Start: 02-20-2019 CBC, EDIF, PLATELET Darwin Tony Work Phone: Start: 02-20-2019 Comprehensive metabolic panel Darwin Torres Chavo Work Phone: Start: 02-20-2019 Natriuretic peptide Darwin Torres Chavo Work Phone: History of coronary artery bypass grafting Elisabeth Atkins MD Work Phone: History of coronary artery bypass grafting S/P CABG (coronary artery bypass graft) Elisabeth Atkins MD Work Phone: History of coronary artery bypass grafting S/P CABG x 3 Emanuel Kwong MD Work Phone: History of coronary artery bypass grafting S/P CABG (coronary artery bypass graft) Elisabeth Atkins MD Work Phone: History of coronary artery bypass grafting S/P CABG (coronary artery bypass graft) Lulu Carson OVERNIGHT CASHIER-VOCATIONAL REHABILITATION ADMINISTRATOR Work Phone: History of coronary artery bypass grafting S/P CABG (coronary artery bypass graft) Lulu Carson OVERNIGHT CASHIER-VOCATIONAL REHABILITATION ADMINISTRATOR Work Phone: Plan of Treatment Date Care Activity Detail Author Start: 03-30-2030 DTaP/Tdap/Td Vaccine s (2 - Td or Tdap) DTaP/Tdap/Td Vaccines (2 - Td or Tdap) [facility] Start: 03-30-2030 [facility] Start: 07-08-2029 Lipid panel [facility] Start: 10-01-2025 Diabetes mellitus screening [facility] Start: 09-27-2025 Diabetes mellitus screening Diabetes Screening [facility] Start: 08-03-2025 End: 08-03-2025 Patient encounter procedure 08/03/2025 8:00 AM EDT Office Visit [facility] [address] [place] [phone] Lulu Carson, OVERNIGHT CASHIER-VOCATIONAL REHABILITATION ADMINISTRATOR [address] [facility], [address] [place] [address] [facility] Start: 07-23-2025 Influenza vaccination Influenz a Vaccine (Season Ended) [facility] Start: 07-13-2025 Diabetes mellitus screening Diabetes Screening [facility] Start: 07-08-2025 Hemoglobin A1c measurement [facility] Start: 06-20-2025 End: 06-20-2025 Patient encounter procedure 06/20/2025 10:00 AM EDT Office Visit [facility] [address] [place] [phone] Lulu Carson, OVERNIGHT CASHIER-VOCATIONAL REHABILITATION ADMINISTRATOR [address] [facility], [address] [place] [address] [facility] Start: 05-02-2025 End: 05-02-2025 Patient encounter procedure 05/02/2025 9:00 AM EDT Office Visit [facility] [address] [place] [phone] Lulu Carson, OVERNIGHT CASHIER-VOCATIONAL REHABILITATION ADMINISTRATOR [address] [facility], [address] [place] [address] [facility] Start: 03-08-2025 End: 03-08-2025 ambulatory 03/08/2025 2:45 PM EDT Evaluation Rissa Nguyen [address] [place] [phone] Amado Bill, PT [address] [facility] [place] [id number] Rissa Padillaont Start: 01-08-2025 End: 01-08-2025 Patient encounter procedure 01/08/2025 1:00 PM EST Office Visit [facility] [address] [place] [address] Emanuel Giraldo MD [address], [address] [place] [address] [facility] Start: 12-21-2024 End: 12-21-2025 Basic metabolic 2000 panel - Serum or Plasma Basic Metabolic Panel Lab Routine Anemia, unspecified type Expected: 12/21/2024 (Approximate), Expires: 12/21/2025 [facility] Work Phone: Comment on above: Expected: 12/21/2024 (Approximate), Expires: 12/21/2025 Start: 12-21-2024 End: 12-21-2025 CBC panel - Blood by Automated count CBC Lab Routine Anemia, unspecified type Expected: 12/21/2024 (Approximate), Expires: 12/21/2025 [facility] Service Area Work Phone: Comment on above: Expected: 12/21/2024 (Approximate), Expires: 12/21/2025 Start: 12-21-2024 End: 12-21-2025 Ferritin [Mass/volume] in Serum or Plasma Ferritin Lab Routine Anemia, unspecified type Expected: 12/21/2024 (Approximate), Expires: 12/21/2025 [facility] Work Phone: Comment on above: Expected: 12/21/2024 (Approximate), Expires: 12/21/2025 Start: 12-21-2024 End: 12-21-2025 Iron and Iron binding capacity panel - Serum or Plasma Iron and TIBC Lab Routine Anemia, unspecified type Expected: 12/21/2024 (Approximate), Expires: 12/21/2025 [facility] Work Phone: Comment on above: Expected: 12/21/2024 (Approximate), Expires: 12/21/2025 Start: 11-08-2024 End: 11-08-2024 ambulatory [facility] Start: 11-08-2024 End: 11-08-2024 Patient encounter procedure 11/08/2024 1:45 PM EST Office Visit [facility] [address] [facility] [address] [place] [address] [place] [address] [place] [address] [facility] Start: 11-08-2024 End: 11-08-2024 Telemedicine consultation with patient 11/08/2024 1:45 PM EST Telemedicine [facility] [address] [facility] [address] [place] [phone] [place] [address] [place] [address] [facility] Start: 10-09-2024 End: 11-01-2024 CBC panel - Blood by Automated count [facility] Service Area Work Phone: Start: 10-09-2024 End: 11-01-2024 Magnesium [Mass/volume] in Serum or Plasma [facility] Work Phone: Start: 10-09-2024 End: 11-01-2024 Renal function 2000 panel - Serum or Plasma [facility] Work Phone: Start: 09-25-2024 End: 09-25-2024 Admission to same day surgery center 09/25/2024 3:35 PM EST - 09/25/2024 11:10 PM [place] [facility] [place] [address] [place] [address] [place] [address] [place] [address] CABG x 3; HURTADO, VEIN [25284 (CPT )] [facility] [place] Comment on above: CABG x 3; HURTADO, VEIN [41535 (CPT )] Start: 09-25-2024 End: 09-25-2024 Anesthesia consultation 09/25/2024 3:35 PM EST Anesthesia Event [facility] [place] [address] [place] [address] Jjuu Pollack MD [facility] [place] [address] [facility] [place] Start: 09-25-2024 End: 09-25-2024 Cabg w/arterial graft three arterial grafts Creation Bypass Graft Coronary Artery Coronary artery disease involving [place] coronary artery of [place] heart, unspecified whether angina present 09/25/2024 3:35 PM EST [facility] [place] Start: 09-25-2024 Subsequent hospital visit by physician 09/25/2024 2:05 PM EST Hospital Encounter [facility] [place] [address] [place] [address] [place] [address] Department [place] [address] [facility] [place] Start: 09-25-2024 End: 09-25-2024 Admission to same day surgery center 09/25/2024 6:45 AM EST - 09/25/2024 2:20 PM EST Surgery [facility] [place] [facility] [place] [address] [place] [address] [place] [address] CABG x 3; HURTADO, VEIN [77428 (CPT )] [facility] [place] Comment on above: CABG x 3; HURTADO, VEIN [67335 (CPT )] Start: 09-25-2024 End: 09-25-2024 Anesthesia consultation 09/25/2024 6:45 AM EST Anesthesia Event [facility] [place] [address] [place] [address] [place] [address] [place] [address] [facility] [place] Start: 09-25-2024 End: 09-25-2024 Cabg w/arterial graft three arterial grafts Creation Bypass Graft Coronary Artery Coronary artery disease involving [place] coronary artery of [place] heart, unspecified whether angina present 09/25/2024 6:45 AM EST [facility] Start: 09-25-2024 Subsequent hospital visit by physician 09/25/2024 5:15 AM EST Hospital Encounter [facility] [place] [address] [place] [address] [place] [address] [facility] [place] [address] [facility] Start: 09-20-2024 End: 09-20-2024 Patient encounter procedure [facility] Start: 09-19-2024 End: 09-19-2024 Admission to establishment 09/19/2024 7:45 AM EDT Pre-Admission Testing [facility] [address] [place] [address] [facility] Start: 09-15-2024 End: 09-15-2024 Patient encounter procedure [facility] Start: 09-14-2024 End: 09-14-2024 Clinical Support 09/14/2024 3:00 PM EDT Clinical Support [facility] [address] [place] [address] [facility] Start: 09-11-2024 End: 09-11-2026 US.doppler Carotid arteries - bilateral Vascular US carotid artery duplex bilateral Vascular Ultrasound Routine Coronary artery disease involving [place] coronary artery of [place] heart without angina pectoris History of stroke with residual deficit Expected: 09/11/2024 (Approximate), Expires: 09/11/2026 [facility] Work Phone: Comment on above: Expected: 09/11/2024 (Approximate), Expires: 09/11/2026 Start: 09-06-2024 End: 08-30-2025 Blood type and Indirect antibody screen panel - Blood Type And Screen Lab Routine Coronary artery disease involving [place] coronary artery of [place] heart, unspecified whether angina present Expected: 09/06/2024 (Approximate), Expires: 08/30/2025 [facility] Work Phone: Comment on above: Expected: 09/06/2024 (Approximate), Expires: 08/30/2025 Start: 09-06-2024 End: 08-30-2025 C reactive protein [Mass/volume] in Serum or Plasma C-Reactive Protein Lab Routine Coronary artery disease involving [place] coronary artery of [place] heart, unspecified whether angina present Expected: 09/06/2024 (Approximate), Expires: 08/30/2025 [facility] Work Phone: Comment on above: Expected: 09/06/2024 (Approximate), Expires: 08/30/2025 Start: 09-06-2024 End: 08-30-2025 CBC W Auto Differential panel - Blood CBC and Auto Differential Lab Routine Coronary artery disease involving [place] coronary artery of [place] heart, unspecified whether angina present Expected: 09/06/2024 (Approximate), Expires: 08/30/2025 [facility] Work Phone: Comment on above: Expected: 09/06/2024 (Approximate), Expires: 08/30/2025 Start: 09-06-2024 End: 08-30-2025 Comprehensive metabolic 2000 panel - Serum or Plasma Comprehensive Metabolic Panel Lab Routine Coronary artery disease involving [place] coronary artery of [place] heart, unspecified whether angina present Expected: 09/06/2024 (Approximate), Expires: 08/30/2025 [facility] Work Phone: Comment on above: Expected: 09/06/2024 (Approximate), Expires: 08/30/2025 Start: 09-06-2024 End: 08-30-2025 CT Chest and Abdomen and Pelvis WO contrast CT chest abdomen pelvis wo IV contrast Imaging Routine Coronary artery disease involving [place] coronary artery of [place] heart, unspecified whether angina present Expected: 09/06/2024, Expires: 08/30/2025 [facility] Work Phone: Comment on above: Expected: 09/06/2024 , Expires: 08/30/2025 Start: 09-06-2024 End: 08-30-2025 Methicillin resistant Staphylococcus aureus [Presence] in Nose by Organism specific culture Staphylococcus aureus/MRSA colonization, Culture Microbiology Routine Coronary artery disease involving [place] coronary artery of [place] heart, unspecified whether angina present Expected: 09/06/2024 (Approximate), Expires: 08/30/2025 [facility] Work Phone: Comment on above: Expected: 09/06/2024 (Approximate), Expires: 08/30/2025 Start: 09-06-2024 End: 08-30-2025 Prepare RBC: 4 Units Prepare RBC: 4 Units Blood Bank Routine Coronary artery disease involving [place] coronary artery of [place] heart, unspecified whether angina present Expected: 09/06/2024 (Approximate), Expires: 08/30/2025 [facility] Work Phone: Comment on above: Expected: 09/06/2024 (Approximate), Expires: 08/30/2025 Start: 09-06-2024 End: 08-30-2025 PT and aPTT panel - Platelet poor plasma by Coagulation assay Coagulation Screen Lab Routine Coronary artery disease involving [place] coronary artery of [place] heart, unspecified whether angina present Chest pain, unspecified type Expected: 09/06/2024 (Approximate), Expires: 08/30/2025 [facility] Work Phone: Comment on above: Expected: 09/06/2024 (Approximate), Expires: 08/30/2025 Start: 09-06-2024 End: 08-30-2025 Request for Pre-Admission Testing Visit Request for Pre-Admission Testing Visit Procedures Routine Coronary artery disease involving [place] coronary artery of [place] heart, unspecified whether angina present Expected: 09/06/2024 (Approximate), Expires: 08/30/2025 [facility] Service Area Work Phone: Comment on above: Expected: 09/06/2024 (Approximate), Expires: 08/30/2025 Start: 09-06-2024 End: 08-30-2025 Urinalysis complete W Reflex Culture panel - Urine Urinalysis with Reflex Culture and Microscopic Lab Routine Coronary artery disease involving [place] coronary artery of [place] heart, unspecified whether angina present Expected: 09/06/2024 (Approximate), Expires: 08/30/2025 [facility] Work Phone: Comment on above: Expected: 09/06/2024 (Approximate), Expires: 08/30/2025 Start: 09-06-2024 End: 08-30-2026 Vascular US lower extremity vein mapping bilateral Vascular US lower extremity vein mapping bilateral Vascular Ultrasound Routine Coronary artery disease involving [place] coronary artery of [place] heart, unspecified whether angina present Expected: 09/06/2024 (Approximate), Expires: 08/30/2026 [facility] Work Phone: Comment on above: Expected: 09/06/2024 (Approximate), Expires: 08/30/2026 Start: 09-06-2024 End: 08-30-2025 XR Chest 2 Views XR chest 2 views Imaging Routine Coronary artery disease involving [place] coronary artery of [place] heart, unspecified whether angina present Expected: 09/06/2024 (Approximate), Expires: 08/30/2025 [facility] Work Phone: Comment on above: Expected: 09/06/2024 (Approximate), Expires: 08/30/2025 Start: 08-16-2024 End: 08-16-2024 Patient encounter procedure 08/16/2024 1:30 PM EDT Office Visit [facility] [address] [address] [place] [address] Department [place] [address] [facility] Start: 07-23-2024 COVID-19 Vaccine ( season) COVID-19 Vaccine ( season) [facility] Start: 07-23-2024 COVID-19 Vaccine ( season) COVID-19 Vaccine ( season) [facility] Start: 07-23-2024 Influenza vaccination [facility] Start: 07-23-2024 [facility] Start: 07-23-2023 COVID-19 Vaccine ( season) COVID-19 Vaccine ( season) [facility] Start: 04-27-2020 Pneumococcal vaccination [facility] Start: 04-27-2020 Pneumococcal Vaccine : 65+ Years (2 of 2 - PPSV23 or PCV20) Pneumococcal Vaccine: 65+ Years (2 of 2 - PPSV23 or PCV20) [facility] Start: 04-27-2020 Pneumococcal Vaccine : 65+ Years (2 of 2 - PPSV23) Pneumococcal Vaccine: 65+ Years (2 of 2 - PPSV23) [facility] Start: 04-27-2020 [facility] Start: 2019 Abdominal aortic aneurysm screening [facility] Start: 07-23-2019 Influenza vaccination INFLUENZ A VACCINE (Season Ended) [facility] Start: 2014 Hepatitis B Vaccines (1 of 3 - Risk 3-dose series) Hepatitis B Vaccines (1 of 3 - Risk 3-dose series) [facility] Start: 2014 RSV High Risk: (Elde rly (60+) or Population) (1 - Risk 60-74 years 1-dose series) RSV High Risk: (Elderly (60+) or Population) (1 - Risk 60-74 years 1-dose series) [facility] Start: 2014 RSV patient s and/or patients aged 60+ years (1 - 1-dose 60+ series) RSV patients and/or patients aged 60+ years (1 - 1-dose 60+ series) [facility] Start: 2014 [facility] Start: 2004 Colonoscopy COLON CANCER S CREENING DISCUSSION [facility] Start: 2004 Prostate specific antigen measurement PROSTATE CANCER SCREENING DISCUSSION [facility] Start: 2004 Zoster vaccine hzv l kelly for subcutaneous use ZOSTER (SHINGLES) VACCINE (1 of 2) [facility] Start: 2004 Zoster Vaccines (1 of 2) Zoste r Vaccines (1 of 2) [facility] Start: 2004 [facility] Start: 1994 Fasting lipid profile LIPID SCREENIN G [facility] Start: 1973 Hepatitis A Vaccines (1 of 2 - Risk 2-dose series) Hepatitis A Vaccines (1 of 2 - Risk 2-dose series) [facility] Start: 1973 Third diphtheria, tetanus and acellular pertussis (DTaP) vaccination TDAP (ADULT) [facility] Start: 1973 [facility] Start: 1972 Hepatitis C screening [facility] Start: 1972 Tetanus vaccination [facility] Start: 1954 Hepatitis C antibody , confirmatory test HEPATITIS C VIRUS SCREENING [facility] Start: 1954 Screening for malign ant neoplasm of colon [facility] Start: 1954 Yearly Adult Physical Yearly Adult P hysical [facility] Start: 1954 [facility] NIKKI without exercise [facility] Se rvice Area Work Phone: Comment on above: Ordered: 09/11/2024 End: 09-27-2024 Anesthesia Intraoperative Transesophageal Echocardiogram [facility] Work Phone: Cabg w/arterial eris t three arterial grafts Creation Bypass Graft Coronary Artery Coronary artery disease involving [place] coronary artery of [place] heart, unspecified whether angina present [facility] OR CBC panel - Blood by Automated count [facility] Work Phone: End: 09-15-2024 CT Chest and Abdomen and Pelvis WO contrast [facility] Work Phone: Comment on above: Once for 1 Occurrenc es starting 09/15/2024 until 09/15/2024 End: 09-27-2024 Determination of physical activity tolerance [facility] Work Phone: End: 09-27-2024 ECG 12 Lead [facility] Work Phone: Electrocardiogram, 12-lead PRN ACS symptoms Electrocardiogram, 12-lead PRN ACS symptoms ECG Routine As needed until discontinued starting 07/08/2024 [facility] Work Phone: Comment on above: As needed until disc ontinued starting 07/08/2024 End: 09-28-2024 Encourage deep breathing and coughing [facility] Work Phone: End: 09-28-2024 Incentive spirometry Instruct [facility] Work Phone: Magnesium [Mass/volu me] in Serum or Plasma [facility] Work Phone: End: 02-20-2019 POCT GLUCOSE POCT GLUCOSE Point of Care Testing STAT One Time for 1 Occurrences starting 02/20/2019 until 02/20/2019 [facility] Comment on above: One Time for 1 Occur rences starting 02/20/2019 until 02/20/2019 End: 07-12-2024 POCT glucose meter docked device POCT glucose meter docked device Point of Care Testing - Docked Device Routine 4 times daily before meals and at bedtime for 3 Days starting 07/09/2024 until 07/12/2024, 9 completed [facility] Work Phone: Comment on above: 4 times daily before meals and at bedtime for 3 Days starting 07/09/2024 until 07/12/2024, 9 completed Pulse oximetry, [facility] Work Phone: Renal function 2000 panel - Serum or Plasma [facility] Work Phone: End: 07-09-2024 Urethral Catheter Removal Urethral Catheter Removal Procedures Routine Once for 1 Occurrences starting 07/09/2024 until 07/09/2024 [facility] Work Phone: Comment on above: Once for 1 Occurrenc es starting 07/09/2024 until 07/09/2024 End: 09-19-2024 XR Chest 2 Views [facility] Service Area Work Phone: Comment on above: Once for 1 Occurrenc es starting 09/19/2024 until 09/19/2024 End: 11-07-2024 XR Chest 2 Views [facility] Service Area Work Phone: Comment on above: Once for 1 Occurrenc es starting 11/07/2024 until 11/07/2024 Immunizations Immunization Date Immunization Notes Care Provider Cynthia fernando 10-11-2024 tuberculin skin test ; purified protein derivative solution, intradermal Lulu Carson [employer] C[employer]OCATIONAL REHABILITATION ADMINISTRATOR Work Phone: [facility] Work Phone: 10-04-2024 tuberculin skin test ; purified protein derivative solution, intradermal Lulu Carson OVERN[employer] C[employer]IER-VOCATIONAL REHABILITATION ADMINISTRATOR Work Phone: [facility] Work Phone: 08-12-2024 tuberculin skin test ; purified protein derivative solution, intradermal Lulu Carson OVERNIGHT C[employer]IER-VOCATIONAL REHABILITATION ADMINISTRATOR Work Phone: [facility] Work Phone: 08-05-2024 tuberculin skin test ; purified protein derivative solution, intradermal Lulu Carson OVERN[employer] C[employer]IER-VOCATIONAL REHABILITATION ADMINISTRATOR Work Phone: [facility] Work Phone: 03-30-2020 tetanus toxoid, redu efrain diphtheria toxoid, and acellular pertussis vaccine, adsorbed Lulu South OVERN[employer] C[employer]IER-VOCATIONAL REHABILITATION ADMINISTRATOR Work Phone: [facility] Work Phone: 03-02-2020 pneumococcal conjuga te vaccine, 13 valent Lulu Carson OVERN[employer] C[employer]IER-VOCATIONAL REHABILITATION ADMINISTRATOR Work Phone: [facility] Work Phone: 12-09-2019 Seasonal trivalent influenza vaccine, adjuvanted, preservative free Lulu Carson OVERN[employer] C[employer]IER-VOCATIONAL REHABILITATION ADMINISTRATOR Work Phone: [facility] Work Phone: 12-09-2019 influenza virus vaccine, unspecified formulation Virginia Hernandez DO Work Phone: [facility] Work Phone: 09-10-2009 influenza virus vaccine, whole virus Lulu Carson OVERN[employer]VOCATIONAL REHABILITATION ADMINISTRATOR Work Phone: [facility] Work Phone: Payers Date Payer Category Payer Self-pay 2024 Unknown [id number] 2024 [employer] [id number] 2019 Unknown [id number] 2019 Unknown [employer] M MO xxxxxxxxxxxx 2019-Present [id number]. [id number] 2018 Unknown 1954 Unknown [id number] 2.16.840.1.429860.3.579.2. 717 1954 Unknown [id number] 2.16.840.1.853263.3.579.2. 717 1954 Unknown [id number] 2.16.840.1.731748.3.579.2. 983 1954 Unknown [id number] 2.16.840.1.813764.3.579.2. 1245 1954 Unknown [id number] 2.16.840.1.260446.3.579.2. 1245 1954 Unknown [id number] 2.16.840.1.862015.3.579.2. 1245 1954 Unknown [id number] 2.16.840.1.961421.3.579.2. 1245 1954 Unknown [id number] 2.16.840.1.635383.3.579.2. 1245 1955 Unknown [id number] 2.16.840.1.512349.3.579.2. 1244 1954 Unknown [id number] 2.16.840.1.686881.3.579.2. 1244 1954 Unknown [id number] 2.16.840.1.043115.3.579.2. 1244 1954 Unknown [id number] 2.16.840.1.536287.3.579.2. 1244 1954 Unknown [id number] 2.16.840.1.655507.3.579.2. 1244 1954 Unknown [id number] 2.16.840.1.808596.3.579.2. 2 1954 Unknown [id number] 2.16.840.1.758396.3.579.2. 1242 1954 Unknown [id number] 2.16.840.1.289144.3.579.2. 1242 1954 Unknown [id number] 2.16.840.1.947677.3.579.2. 1242 1954 Unknown [id number] 2.16.840.1.163857.3.579.2. 1242 1954 Unknown [id number] 2.16.840.1.532855.3.579.2. 1243 1954 Unknown [id number] 2.16.840.1.006401.3.579.2. 1243 1954 Unknown [id number] 2.16.840.1.136838.3.579.2. 1243 1954 Unknown [id number] 2.16.840.1.225827.3.579.2. 1243 1954 Unknown [id number] 2.16.840.1.686379.3.579.2. 12411-22-1899 Unknown [id number] Unknown [id number] 2.16.840.1.859414.3.579.2. 462 Unknown [id number] 2.16.840.1.066222.3.579.2. 462 Unknown [id number] 2.16.840.1.992906.3.579.2. 462 Unknown [id number] 2.16.840.1.417211.3.579.2. 462 Unknown [id number] 2.16.840.1.450091.3.579.2. 462 Unknown [id number] 2.16.840.1.796125.3.579.2. 462 Unknown [id number] 2.16.840.1.487074.3.579.2. 462 Unknown [id number] 2.16.840.1.156824.3.579.2. 462 Unknown [id number] 2.16.840.1.566432.3.579.2. 462 Unknown [id number] 2.16.840.1.287878.3.579.2. 462 Unknown [id number] 2.16.840.1.780749.3.579.2. 462 Social History Date Type Detail Facility Start: 02-20-2019 Tobacco smoking status WVIS Never smoker [facility] Start: 02-20-2019 History SDOH Alcohol Frequency 5 [facility] Start: 1955 Sex Assigned At Not on file [facility] Start: 07-08-2024 End: 09-05-2024 Tobacco smoking status WVIS Ex-smoker [facility] History of tobacco use Current smoker [facility] Work Phone: History of tobacco use Cigarette Smoker [facility] Work Phone: Start: 07-08-2024 End: 09-05-2024 Tobacco use and exposure Former smokeless tobacco user [facility] Work Phone: History of tobacco use Chews Tobacco [facility] Work Phone: Start: 09-05-2024 End: 05-02-2025 Alcoholic beverage intake Current drinker of alcohol (finding) [facility] Work Phone: Start: 07-08-2024 End: 09-27-2024 History of Social function [facility] Start: 07-08-2024 End: 09-27-2024 Alcohol Use Disorder Identification Test - Consumption [AUDIT-C] [facility] How often to you hav e a drink containing alcohol? 4 or more times a week [facility] How many standard dr inks containing alcohol do you have on a typical day? 1 or 2 [facility] Work Phone: How often do you hav e 6 or more drinks on 1 occasion? Monthly [facility] Work Phone: How hard is it for y ou to pay for the very basics like food, housing, medical care, and heating Somewhat hard [facility] Work Phone: In the past 12 month s, has lack of transportation kept you from medical appointments or from getting medications? No [facility] Work Phone: In the past 12 month s, was there a time when you were not able to pay the mortgage or rent on time? No [facility] Work Phone: Start: 09-05-2024 Alcohol Comment occasional [facility] Work Phone: Start: 06-27-2024 End: 05-02-2025 Exposure to SARS-CoV-2 (event) Not sure [facility] How often to you hav e a drink containing alcohol? Never [facility] Medical Equipment Procedure Code Equipment Code Equipment Origin al Text Equipment Identifier Dates imp Start: 09-27-2024imp Start: 09-27-2024imp Start: 09-27-2024 Functional Status Date Assessment Result Facility 05-02-2025 Patient Health [facility] ionnaire 2 item (PHQ-2) [Reported] [facility] Work Phone: Clinical Notes 07-07-2024 to 05-02-2025 TAM Fernandez - 05/02/2025 9:00 AM TAM Grubbs - 03/02/2025 9:00 AM Cassidy Carson APRN-HERI - 12/21/2024 10:00 AM Toni Atkins MD - 11/08/2024 1:45 PM EST Note Date & Type Note Facility 05-02-2025 History of Present illness Narrative Subjective Patient ID: Cisco Saini is a 69 y.o. male who presents for 2 month (Pt is here today for 2month FUV. AAA and Colonoscopy is due. Would like to talk about getting back on medication for anxiety and depression and talk about going back to work). Patient presents today for follow-up from physical therapy. CVA: Has right arm coordination and strength deficit as well as bilateral lower leg gait deficit. He is able to walk without assistance, has had no falls. He did undergo 2 sessions of physical therapy but could not afford any more financially. He has been doing exercises at home. He now has less strength in his right hand to start his car, states he has been driving in a limited basis around side streets. I did tell him I did not feel this was safe but he disagrees. Will still try to avoid driving in crowded areas. I feel his reaction time with his legs is not adequate. He would like to return to work. 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 Under the circumstances I think it is safe for him to return to work provided that his employer does not have any restrictions. I told him to reach out to his employer's HR department and see if they need specific paperwork or have restrictions on his job. He states he is able to perform all of his own ADLs at this time. He does cook and clean around the house. Is able to go up and down stairs. PT note reflects the same. Anxiety: Was previously on Zoloft but stopped. Would like to restart the medication as people in his life are causing him more stress. He feels the medication would help. Hypertension: 140/90 in the office today, denies cardiovascular symptoms, lisinopril will be increased from 2.5 to 5 mg. Preventative health: Declines AAA scan (non-smoker), declines colonoscopy states that he had 1 in the last 10 years although there is no record in the system. Review of Systems Constitutional: Negative for chills, diaphoresis, fatigue and unexpected weight change. HENT: Negative for dental problem, tinnitus and trouble swallowing. Eyes: Negative for visual disturbance. Respiratory: Negative for chest tightness and shortness of breath. Cardiovascular: Negative for chest pain, palpitations and leg swelling. Gastrointestinal: Negative for abdominal pain, constipation, diarrhea, nausea and rectal pain. Endocrine: Negative for polydipsia, polyphagia and polyuria. Genitourinary: Negative for difficulty urinating, frequency and urgency. Musculoskeletal: Negative for arthralgias and myalgias. Skin: Negative for pallor and wound. Neurological: Positive for weakness. Negative for syncope, numbness and headaches. Psychiatric/Behavioral: Negative for suicidal ideas. The patient is nervous/anxious. Objective BP 140/90 Pulse 93 Ht 1.632 m (5' 4.25) Wt 80.8 kg (178 lb 3.2 oz) SpO2 95% BMI 30.35 kg/m Physical Exam Vitals and nursing note reviewed. Constitutional: General: He is not in acute distress. Appearance: Normal appearance. HENT: Head: Normocephalic. Nose: Nose normal. Mouth/Throat: Mouth: Mucous membranes are moist. Pharynx: Oropharynx is clear. Eyes: General: No scleral icterus. Pupils: Pupils are equal, round, and reactive to light. Neck: Vascular: No carotid bruit. Cardiovascular: Rate and Rhythm: Normal rate and regular rhythm. Pulses: Normal pulses. Heart sounds: Normal heart sounds. No murmur heard. Pulmonary: Effort: Pulmonary effort is normal. No respiratory distress. Breath sounds: Normal breath sounds. No stridor. No wheezing, rhonchi or rales. Abdominal: General: Bowel sounds are normal. There is no distension. Palpations: Abdomen is soft. Tenderness: There is no abdominal tenderness. There is no right CVA tenderness or left CVA tenderness. Musculoskeletal: General: No swelling. Normal range of motion. Cervical back: Normal range of motion. Right lower leg: No edema. Left lower leg: No edema. Skin: General: Skin is warm and dry. Capillary Refill: Capillary refill takes less than 2 seconds. Neurological: General: No focal deficit present. Mental Status: He is alert and oriented to person, place, and time. Mental status is at baseline. Sensory: Sensory deficit present. Motor: Weakness (Right arm, bilateral legs) present. Coordination: Coordination abnormal. Gait: Gait abnormal. Psychiatric: Mood and Affect: Mood normal. Behavior: Behavior normal. Thought Content: Thought content normal. Judgment: Judgment normal. Assessment/Plan Diagnoses and all orders for this visit: Primary hypertension - lisinopril 5 mg tablet; Take 1 tablet (5 mg) by mouth once daily. S/P CABG (coronary artery bypass graft) Depression, unspecified depression type - sertraline (Zoloft) 50 mg tablet; Take 1 tablet (50 mg) by mouth once daily. documented in this encounter [facility] Work Phone: 03-02-2025 History of Present illness Narrative Subjective Patient ID: Cisco Saini is a 69 y.o. male who presents for Follow-up (Wants to return to work s/p TIA, CABG surgery). Patient presents today for evaluation of return to work. History of CVA/TIA: Patient has been out of work and undergoing home health care. Last home health care report 2 months ago. Patient is ambulatory in the office and driving himself here still has deficits in his right arm and right leg. Poor balance, can maintain less than 3 seconds on a single leg. Good bilateral upper and lower strength, poor coordination. I recommended they consult physical therapy for 6 to 8 weeks of treatment and evaluation of his ability to return to work and what possible restrictions he might need. Patient was agreeable to this and referral was placed. Review of Systems Constitutional: Negative for chills, diaphoresis, fatigue and unexpected weight change. HENT: Negative for dental problem, tinnitus and trouble swallowing. Eyes: Negative for visual disturbance. Respiratory: Negative for chest tightness and shortness of breath. Cardiovascular: Negative for chest pain, palpitations and leg swelling. Gastrointestinal: Negative for abdominal pain, constipation, diarrhea, nausea and rectal pain. Endocrine: Negative for polydipsia, polyphagia and polyuria. Genitourinary: Negative for difficulty urinating, frequency and urgency. Musculoskeletal: Positive for gait problem. Negative for arthralgias and myalgias. Skin: Negative for pallor and wound. Neurological: Negative for syncope, weakness, numbness and headaches. Psychiatric/Behavioral: Negative for suicidal ideas. The patient is not nervous/anxious. Objective BP 122/80 (BP Location: Left arm, Patient Position: Sitting) Pulse 61 Ht 1.632 m (5' 4.25) Wt 79.4 kg (175 lb) SpO2 99% BMI 29.81 kg/m Physical Exam Vitals and nursing note reviewed. Constitutional: General: He is not in acute distress. Appearance: Normal appearance. HENT: Head: Normocephalic. Nose: Nose normal. Mouth/Throat: Mouth: Mucous membranes are moist. Pharynx: Oropharynx is clear. Eyes: General: No scleral icterus. Pupils: Pupils are equal, round, and reactive to light. Neck: Vascular: No carotid bruit. Cardiovascular: Rate and Rhythm: Normal rate and regular rhythm. Pulses: Normal pulses. Heart sounds: Normal heart sounds. No murmur heard. Pulmonary: Effort: Pulmonary effort is normal. No respiratory distress. Breath sounds: Normal breath sounds. No stridor. No wheezing, rhonchi or rales. Abdominal: General: Bowel sounds are normal. There is no distension. Palpations: Abdomen is soft. Tenderness: There is no abdominal tenderness. There is no right CVA tenderness or left CVA tenderness. Musculoskeletal: General: No swelling. Normal range of motion. Cervical back: Normal range of motion. Right lower leg: No edema. Left lower leg: No edema. Skin: General: Skin is warm and dry. Capillary Refill: Capillary refill takes less than 2 seconds. Neurological: General: No focal deficit present. Mental Status: He is alert and oriented to person, place, and time. Mental status is at baseline. Motor: No weakness. Coordination: Coordination abnormal. Gait: Gait abnormal. Psychiatric: Mood and Affect: Mood normal. Behavior: Behavior normal. Thought Content: Thought content normal. Judgment: Judgment normal. Assessment/Plan Diagnoses and all orders for this visit: Cerebrovascular accident (CVA), unspecified mechanism (Multi) - Referral to Physical Therapy; Future documented in this encounter [facility] Work Phone: 12-21-2024 History of Present illness Narrative Subjective Patient ID: Cisco Saini is a 69 y.o. male who presents for Establish Care (PT is here today to establish care as a new pt. He has not been in over 5 years. ). Patient presents today to establish primary care. He was previously a patient of Dr. Debbie Barba in this office. He has not seen Dr. Barba in person over 12 years per his report. In the last few months he has had TIA, NSTEMI and triple bypass. He is currently on home health and is presenting today for completion of home health paperwork, management of medications. NSTEMI/CABG: Performed in September 2024, follow-up with Dr. Kwong in October 09, 2024. Patient has had initial medications filled by hospitalist and needs refills of ASA, lisinopril, metoprolol, Plavix, atorvastatin. Refill sent. Necessity of medication compliance explained the patient. He is having no chest pain or dyspnea. He is progressing his activity. He is walking with a cane and trying to walk further distances every day. Feels he is improving. His goal is to return to work. CVA/TIA: Patient reports CVA with right side impairment. Has returned to normal strength with right leg, some mild coordination issues. Decreased muscle grading in right upper extremity with flexion and extension. He is working with therapy and has assistive devices to help with strengthening the right arm. Does have some mild right facial paralysis as well. He is A&O x 4. Anemia: Last blood work in the hospital showed low hemoglobin, patient states in the past has been on iron. Does have some fatigue most likely secondary to postsurgical rehab. He is concerned about his iron level though and labs will be drawn. Review of Systems Constitutional: Positive for fatigue. Negative for chills, diaphoresis and unexpected weight change. HENT: Negative for dental problem, tinnitus and trouble swallowing. Eyes: Negative for visual disturbance. Respiratory: Negative for chest tightness and shortness of breath. Cardiovascular: Negative for chest pain, palpitations and leg swelling. Gastrointestinal: Negative for abdominal pain, constipation, diarrhea, nausea and rectal pain. Endocrine: Negative for polydipsia, polyphagia and polyuria. Genitourinary: Negative for difficulty urinating, frequency and urgency. Musculoskeletal: Negative for arthralgias and myalgias. Skin: Negative for pallor and wound. Neurological: Positive for weakness. Negative for syncope, numbness and headaches. Psychiatric/Behavioral: Negative for suicidal ideas. The patient is not nervous/anxious. Objective BP 114/70 Pulse 96 Ht 1.61 m (5' 3.39) Wt 79.3 kg (174 lb 14.4 oz) SpO2 95% BMI 30.61 kg/m Physical Exam Vitals and nursing note reviewed. Constitutional: General: He is not in acute distress. Appearance: Normal appearance. He is normal weight. HENT: Head: Normocephalic. Nose: Nose normal. Mouth/Throat: Mouth: Mucous membranes are moist. Pharynx: Oropharynx is clear. Eyes: General: No scleral icterus. Pupils: Pupils are equal, round, and reactive to light. Cardiovascular: Rate and Rhythm: Normal rate and regular rhythm. Pulses: Normal pulses. Heart sounds: Normal heart sounds. No murmur heard. Pulmonary: Effort: Pulmonary effort is normal. No respiratory distress. Breath sounds: Normal breath sounds. No stridor. No wheezing, rhonchi or rales. Abdominal: General: Bowel sounds are normal. Palpations: Abdomen is soft. Musculoskeletal: General: No swelling. Normal range of motion. Cervical back: Normal range of motion. Right lower leg: No edema. Left lower leg: No edema. Skin: General: Skin is warm and dry. Capillary Refill: Capillary refill takes less than 2 seconds. Coloration: Skin is not jaundiced. Neurological: General: No focal deficit present. Mental Status: He is alert and oriented to person, place, and time. Mental status is at baseline. Cranial Nerves: No cranial nerve deficit. Sensory: No sensory deficit. Motor: Weakness (Right upper extremity grading 4/5) present. Coordination: Coordination normal. Psychiatric: Mood and Affect: Mood normal. Behavior: Behavior normal. Thought Content: Thought content normal. Judgment: Judgment normal. Assessment/Plan Diagnoses and all orders for this visit: Routine general medical examination at a health care facility S/P CABG (coronary artery bypass graft) - atorvastatin (Lipitor) 80 mg tablet; Take 1 tablet (80 mg) by mouth once daily at bedtime. - clopidogrel (Plavix) 75 mg tablet; Take 1 tablet (75 mg) by mouth once daily. - metoprolol succinate XL (Toprol-XL) 50 mg 24 hr tablet; Take 1 tablet (50 mg) by mouth once daily. Do not crush or chew. - lisinopril 2.5 mg tablet; Take 1 tablet (2.5 mg) by mouth once daily. Anemia, unspecified type - CBC; Future - Basic Metabolic Panel; Future - Iron and TIBC; Future - Ferritin; Future documented in this encounter [facility] Work Phone: 11-08-2024 History of Present illness Narrative Images from the original note were not included. [facility] A virtual visit (audio and video) between the patient (at the originating site) and the provider (at the distant site) was utilized to provide this telehealth service. HPI: Reviewed at the clinic today. Patient has hx of hemipelegia from a prior stroke and underwent off pump CABG x 3 on 09/27/24. Patient is home from rehab. He is doing well. Has continued to work with ambulation and home PT. He is probably ready for cardiac rehab at this time. He states he has more energy which he has noticed ever since having surgery. Overall he is feeling very well. No chest pain, no shortness of breath and denies palpitations, dizziness, or syncope. Patient reports having much more energy. On examination over video, wounds are well healed Chest x-ray done 11/07 clear bilaterally. Assessment/Plan: Continue home care for stroke rehab Referral in place for cardiac rehab Ok to return to normal activities Continue to follow up in the [facility] with cardiology, Dr. Alise Kwong Does not need to return to clinic, but was instructed to call if any issues arise Elisabeth Atkins MD axle inspector Division of Cardiac Surgery [facility] documented in this encounter [facility] Work Phone: 10-09-2024 History of Present illness Narrative Chief Complaint Patient presents with Hospital Follow-up HPI: I was requested by Dr. Barba to evaluate this patient in consultation for cardiac assessment. Mr. Cisco Saini is a 68 y.o. former smoker male with prior medical history significant for NSTEMI / multivessel CAD S/P CABG x3 (09/27/2024, Dr. Elisabeth Atkins - HURTADO-LAD, SVG-OM-PDA), Stroke with right sided hemiparesis, hypertension, hyperlipidemia, obesity. He presented to ED [facility] on 07/07/2024 complaining of right-sided weakness. He endorses that he lost strength in the right side of his body. Before this he was feeling pretty normal. His symptoms improved in the hospital. He denied chest pain, shortness of breath, palpitations, leg edema, lightheadedness, headaches, fever, chills, orthopnea, paroxysmal nocturnal dyspnea or syncope. He lives at home independently. EKG shows normal sinus rhythm with no signs of acute ischemic changes. Trop 526-646. He was admitted for clinical compensation. Underwent Left Heart Catheterization showing multivessel coronary artery disease. Patient was referred to Heart Surgery team - Dr. Elisabeth Atkins for CABG evaluation. Underwent CABG x3 on 09/27/2024. Past Medical History Past Medical History: Diagnosis Date CAD (coronary artery disease) Depression Hemiplegia (Multi) r arm/leg HLD (hyperlipidemia) HTN (hypertension) Smoker Stroke (cerebrum) (Multi) Past Surgical History Past Surgical History: Procedure Laterality Date CARDIAC CATHETERIZATION N/A 07/11/2024 Procedure: Left Heart Cath, With LV; Surgeon: Emanuel Kwong MD; Location: [facility] Cardiac Poker Machine Attendant; Service: Cardiovascular; Laterality: N/A; CARDIAC CATHETERIZATION N/A 07/11/2024 Procedure: Left Ventriculography; Surgeon: Emanuel Kwong MD; Location: [facility] Cardiac Poker Machine Attendant; Service: Cardiovascular; Laterality: N/A; Past Family History No family history on file. Allergy History No Known Allergies Past Social History Social History Socioeconomic History Marital status: Single Tobacco Use Smoking status: Former Types: Cigarettes Smokeless tobacco: Former Types: Chew Substance and Sexual Activity Alcohol use: Yes Comment: occasional Drug use: Never Sexual activity: Defer Social Drivers of Health Financial Resource Strain: Patient Unable To Answer (09/27/2024) Overall Financial Resource Strain (CARDIA) Difficulty of Paying Living Expenses: Patient unable to answer Recent Concern: Financial Resource Strain - Medium Risk (07/08/2024) Overall Financial Resource Strain (CARDIA) Difficulty of Paying Living Expenses: Somewhat hard Transportation Needs: Patient Unable To Answer (09/27/2024) PRAPARE - Transportation Lack of Transportation (Medical): Patient unable to answer Lack of Transportation (Non-Medical): Patient unable to answer Housing Stability: Patient Unable To Answer (09/27/2024) Housing Stability Vital Sign Unable to Pay for Housing in the Last Year: Patient unable to answer Number of Times Moved in the Last Year: 0 Homeless in the Last Year: Patient unable to answer Social History Tobacco Use Smoking Status Former Types: Cigarettes Smokeless Tobacco Former Types: Chew Review of Systems: A total of 12 systems have been reviewed and are negative except for the aforementioned findings described in HPI. Objective Data: Last Recorded Vitals: Vitals: 10/09/24 1340 BP: 80/56 Pulse: 81 SpO2: 92% Weight: 76.2 kg (168 lb) Height: 1.676 m (5' 6) Last Labs: CBC - 10/06/2024: 7:09 AM 12.0 10.7 377 33.4 CMP - 10/06/2024: 7:09 AM 8.3 5.9 39 --- 0.6 3.8 3.3 87 334 PTT - 09/27/2024: 3:14 PM 1.1 12.8 32 TROPHS Date/Time Value Ref Range Status 07/08/2024 04:17 AM 526 0 - 20 ng/L Final Comment: Previous result verified on 07/07/2024 2315 on specimen/case [id number] called with component [facility] for procedure Troponin I, High Sensitivity with value 646 ng/L. 07/07/2024 11:42 PM 546 0 - 20 ng/L Final Comment: Previous result verified on 07/07/2024 2315 on specimen/case [id number] called with component [facility] for procedure Troponin I, High Sensitivity with value 646 ng/L. 07/07/2024 10:38 PM 646 0 - 20 ng/L Final HGBA1C Date/Time Value Ref Range Status 07/08/2024 04:18 AM 5.8 see below % Final LDLCALC Date/Time Value Ref Range Status 07/08/2024 04:17 AM 174 <=99 mg/dL Final Comment: Near Borderline AGE Desirable Optimal High High Very High 0-19 Y 0 - 109 --- 110-129 >/= 130 ---- 20-24 Y 0 - 119 --- 120-159 >/= 160 ---- >24 Y 0 - 99 100-129 130-159 160-189 >/=190 VLDL Date/Time Value Ref Range Status 07/08/2024 04:17 AM 15 0 - 40 mg/dL Final Patient Medications: Outpatient Encounter Medications as of 10/09/2024 Medication Sig Dispense Refill acetaminophen (Tylenol) 325 mg tablet Take 2 tablets (650 mg) by mouth every 4 hours if needed for mild pain (1 - 3) or fever (temp greater than 38.0 C). aspirin 81 mg EC tablet Take 1 tablet (81 mg) by mouth once daily. atorvastatin (Lipitor) 80 mg tablet Take 1 tablet (80 mg) by mouth once daily at bedtime. bisacodyl (Dulcolax, bisacodyl,) 10 mg suppository Insert 1 suppository (10 mg) into the rectum once daily as needed for constipation. clopidogrel (Plavix) 75 mg tablet Take 1 tablet (75 mg) by mouth once daily. dextromethorphan-guaifenesin (Mucinex DM) 30-600 mg 12 hr tablet Take 1 tablet by mouth every 12 hours. Do not crush, chew, or split. gabapentin (Neurontin) 100 mg capsule Take 2 capsules (200 mg) by mouth 2 times a day. iron polysaccharides (Nu-Iron,Niferex) 150 mg iron capsule Take 1 capsule (150 mg) by mouth once daily for 21 days. lisinopril 2.5 mg tablet Take 1 tablet (2.5 mg) by mouth once daily. magnesium hydroxide (Milk Of Magnesia Concentrated) 2,400 mg/10 mL suspension suspension Take 30 mL by mouth every 6 hours if needed for constipation. metoprolol succinate XL (Toprol-XL) 50 mg 24 hr tablet Take 1 tablet (50 mg) by mouth once daily. Do not crush or chew. moisturizing mouth (Biotene Dry Mouth Oral Rinse) solution Swish and spit 15 mL 3 times a day as needed. multivitamin with minerals tablet Take 1 tablet by mouth once daily. nystatin (Mycostatin) 100,000 unit/gram powder Apply 1 Application topically 2 times a day as needed for rash. ondansetron (Zofran) 4 mg tablet Take 1 tablet (4 mg) by mouth every 8 hours if needed for nausea or vomiting. sennosides-docusate sodium (Senna Plus) 8.6-50 mg tablet Take 2 tablets by mouth every 12 hours if needed for constipation. sertraline (Zoloft) 50 mg tablet Take 1 tablet (50 mg) by mouth once daily. [DISCONTINUED] chlorhexidine (Hibiclens) 4 % external liquid Apply 1 Application topically 2 times a day for 5 days. Use per CPM/PAT provided instructions 473 mL 0 furosemide (Lasix) 20 mg tablet Take 1 tablet (20 mg) by mouth once daily for 3 days. [DISCONTINUED] aspirin 81 mg chewable tablet Chew 1 tablet (81 mg) once daily. [DISCONTINUED] atorvastatin (Lipitor) 40 mg tablet Take 1 tablet (40 mg) by mouth once daily at bedtime. 30 tablet 0 [DISCONTINUED] chlorhexidine (Peridex) 0.12 % solution Use 15 mL in the mouth or throat if needed for wound care for up to 2 days. Swish and spit the night before and morning of surgery. 120 mL 0 [DISCONTINUED] lisinopril 5 mg tablet Take 1 tablet (5 mg) by mouth once daily. [DISCONTINUED] metoprolol succinate XL (Toprol-XL) 25 mg 24 hr tablet Take 1 tablet (25 mg) by mouth once daily. Do not crush or chew. 30 tablet 0 [DISCONTINUED] nitroglycerin (Nitrodur) 0.1 mg/hr patch Place 1 patch on the skin once daily. [DISCONTINUED] oxymetazoline (Afrin) 0.05 % nasal spray Administer 2 sprays into each nostril every 12 hours if needed for congestion for up to 3 days. Do not use for more than 3 days. 30 mL 0 No facility-administered encounter medications on file as of 10/09/2024. Physical Exam: General: alert, oriented and in no acute distress; slurred speech HEENT: NC/AT; EOMI; PERRLA, external ear is normal Neck: supple; trachea midline; no masses; no JVD Chest: clear breath sounds bilaterally; no wheezing Cardio: regular rhythm, S1S2 normal, no murmurs Abdomen: Soft, non-tender, non-distension, no organomegaly Extremities: no clubbing/cyanosis/edema Neuro: Stroke with right sided hemiparesis Psychiatric: Normal mood and affect Past Cardiology Results (Last 3 Years): EKG: ECG 12 lead (Clinic Performed) 10/09/2024 Electrocardiogram, 12-lead 09/28/2024 ECG 12 lead Echo: Echo Results: Transthoracic Echo (TTE) Complete With Contrast 07/10/2024 [place] [address] [phone], TRANSTHORACIC ECHOCARDIOGRAM REPORT Patient Name: CISCO Quinones Physician: [id number] Jay Alves MD Study Date: 07/10/2024 Ordering Provider: [id number] GHANSHYAM KEARNS MRN/PID: [id number] Fellow: Nurse: Lisset Contreras RN Date of /Age: 1 1955 / 68 years Bottom Cementer: Candelaria Decker RVT, FABIAN Gender: M Additional Staff: Height: 165.10 cm Admit Date: 07/07/2024 Weight: 85.28 kg Admission Status: Inpatient - Routine BSA / BMI: 1.93 m2 / 31.29 kg/m2 Department Location: [address] Blood Pressure: 131 /81 mmHg Study Type: TRANSTHORACIC ECHO (TTE) COMPLETE Diagnosis/ICD: Elevated Troponin-R79.89; Transient cerebral ischemic attack, unspecified (NOT on LCD)-G45.9 Indication: Transischemic Attack CPT Codes: Echo Complete w Full Doppler-[id number] Patient History: Pertinent History: No previous echo. Study Detail: The following Echo studies were performed: 2D, M-Mode, Doppler and color flow. Definity used as a contrast agent for endocardial border definition and agitated saline used as a contrast agent for intraseptal flow evaluation. Total contrast used for this procedure was 2 mL via IV push. The patient was awake. PHYSICIAN INTERPRETATION: Left Ventricle: The left ventricular systolic function is normal, with a visually estimated ejection fraction of 60-65%. There are no regional wall motion abnormalities. The left ventricular cavity size is normal. There is mild concentric left ventricular hypertrophy. Spectral Doppler shows an impaired relaxation pattern of left ventricular diastolic filling. Left Atrium: The left atrium is normal in size. Right Ventricle: The right ventricle is normal in size. There is normal right ventricular global systolic function. Right Atrium: The right atrium is normal in size. Aortic Valve: The aortic valve is trileaflet. The aortic valve dimensionless index is 0.70. There is no evidence of aortic valve regurgitation. The peak instantaneous gradient of the aortic valve is 10.5 mmHg. The mean gradient of the aortic valve is 5.0 mmHg. Mitral Valve: The mitral valve is normal in structure. There is trace mitral valve regurgitation. Calcified nodule on poterior leaflet of mitral valve. Tricuspid Valve: The tricuspid valve is structurally normal. No evidence of tricuspid regurgitation. Pulmonic Valve: The pulmonic valve is not well visualized. There is mild pulmonic valve regurgitation. Pericardium: There is no pericardial effusion noted. Aorta: The aortic root is normal. CONCLUSIONS: 1. The left ventricular systolic function is normal, with a visually estimated ejection fraction of 60-65%. 2. Spectral Doppler shows an impaired relaxation pattern of left ventricular diastolic filling. 3. There is normal right ventricular global systolic function. 4. Bubble study is positive for a right to left shunt, suggestive of a patent foramen ovale. QUANTITATIVE DATA SUMMARY: 2D MEASUREMENTS: Normal Ranges: Ao Root d: 2.80 cm (2.0-3.7cm) LAs: 3.60 cm (2.7-4.0cm) IVSd: 1.19 cm (0.6-1.1cm) LVPWd: 1.13 cm (0.6-1.1cm) LVIDd: 3.21 cm (3.9-5.9cm) LVIDs: 2.34 cm LV Mass Index: 59.1 g/m2 LV % FS 27.1 % LA VOLUME: Normal Ranges: LA Vol A4C: 42.4 ml (22+/-6mL/m2) LA Vol A2C: 46.8 ml LA Vol BP: 51.8 ml LA Vol Index A4C: 22.0ml/m2 LA Vol Index A2C: 24.3 ml/m2 LA Vol Index BP: 26.9 ml/m2 LA Area A4C: 17.7 cm2 LA Area A2C: 16.0 cm2 LA Major Blackburn A4C: 6.3 cm LA Major Blackburn A2C: 4.6 cm LA Volume Index: 23.6 ml/m2 LA Vol A4C: 43.7 ml LA Vol A2C: 45.6 ml LA Vol Index BSA: 23.2 ml/m2 M-MODE MEASUREMENTS: Normal Ranges: AoV Exc: 2.10 cm (1.5-2.5cm) AORTA MEASUREMENTS: Normal Ranges: AoV Exc: 2.10 cm (1.5-2.5cm) LV SYSTOLIC FUNCTION BY 2D PLANIMETRY (MOD): Normal Ranges: EF-A4C View: 72 % (>=55%) EF-A2C View: 76 % EF-Biplane: 72 % EF-Visual: 63 % LV EF Reported: 63 % LV DIASTOLIC FUNCTION: Normal Ranges: MV Peak E: 0.73 m/s (0.7-1.2 m/s) MV Peak A: 0.99 m/s (0.42-0.7 m/s) E/A Ratio: 0.74 (1.0-2.2) MV e' 0.075 m/s (>8.0) MV lateral e' 0.10 m/s MV medial e' 0.05 m/s E/e' Ratio: 9.75 (<8.0) MITRAL VALVE: Normal Ranges: MV DT: 261 msec (150-240msec) MITRAL INSUFFICIENCY: Normal Ranges: MR Vmax: 320.00 cm/s AORTIC VALVE: Normal Ranges: AoV Vmax: 1.62 m/s (<=1.7m/s) AoV Peak P.5 mmHg (<20mmHg) AoV Mean P.0 mmHg (1.7-11.5mmHg) LVOT Max Mena: 1.25 m/s (<=1.1m/s) AoV VTI: 31.50 cm (18-25cm) LVOT VTI: 22.10 cm LVOT Diameter: 2.10 cm (1.8-2.4cm) AoV Area, VTI: 2.43 cm2 (2.5-5.5cm2) AoV Area,Vmax: 2.67 cm2 (2.5-4.5cm2) AoV Dimensionless Index: 0.70 RIGHT VENTRICLE: RV Basal 3.80 cm RV Mid 2.59 cm RV Major 7.2 cm TAPSE: 16.0 mm TRICUSPID VALVE/RVSP: Normal Ranges: Peak TR Velocity: 2.42 m/s RV Syst Pressure: 26.4 mmHg (< 30mmHg) PULMONIC VALVE: Normal Ranges: PV Accel Time: 113 msec (>120ms) PV Max Mena: 1.4 m/s (0.6-0.9m/s) PV Max P.3 mmHg PIEDV: 0.64 m/s PADP: 4.6 mmHg [id number] Jay Alves MD Electronically signed on 07/10/2024 at 9:16:39 AM Final Cath: Cardiac Catheterization Procedure 07/11/2024 CV NCDR CATHPCI V5 COLLECTION FORM Stress Test: No results found for this or any previous visit from the past 1095 days. Cardiac Imaging: No results found for this or any previous visit from the past 1095 days. Assessment/Plan Mr. Cisco Saini is a 68 y.o. former smoker male with prior medical history significant for NSTEMI / multivessel CAD S/P CABG x3 (09/27/2024, Dr. Elisabeth Atkins - GENESIS-LAD, SVG-OM-PDA), Stroke with right sided hemiparesis, hypertension, hyperlipidemia, obesity. He presented to ED [facility] on 07/07/2024 complaining of right-sided weakness. He endorses that he lost strength in the right side of his body. Before this he was feeling pretty normal. His symptoms improved in the hospital. He denied chest pain, shortness of breath, palpitations, leg edema, lightheadedness, headaches, fever, chills, orthopnea, paroxysmal nocturnal dyspnea or syncope. He lives at home independently. EKG shows normal sinus rhythm with no signs of acute ischemic changes. Trop 526-646. He was admitted for clinical compensation. Underwent Left Heart Catheterization showing multivessel coronary artery disease. Patient was referred to Heart Surgery team - Dr. Elisabeth Atkins for CABG evaluation. Underwent CABG x3 on 09/27/2024. Assessment # Multivessel CAD / NSTEMI / S/P CABG x3 (HURTADO-LAD; SVG-OM-PDA) 09/27/2024 - Dr. Ledesma - EKG shows normal sinus rhythm with no signs of acute ischemic changes. - The echocardiogram showed normal LVEF 60% with no wall motion abnormalities. Impaired relaxation pattern of left ventricle diastolic filling. Patent foramen ovale. - Left Heart Catheterization (08/2024): Prox LAD 70% calcified lesion; 1st Dg 90% calcified lesion (small vessel) 3rd OM 95% calcified lesion Distal RCA diffuse 80% calcified lesion Preserved LV systolic function - Patient referred to Dr. Ledesma. After discussion, we and the patient have opted for CABG x3. - Patient is doing fine after surgery. - Keep ASA, Clopidogrel, beta-breana, DENIA-I, high intensity statins. - Follow up in 3 months. - Cardiac rehab. # CVA / Stroke - MRI brain: Acute/subacute lacunar infarction in the left centrum semiovale measuring a proximally 1 cm x 1 cm x 2 cm in size *Remote lacunar infarction with hemosiderin deposition in the adjacent left centrum semiovale *Volume loss with small-vessel ischemic change - Keep ASA, statins - Follow up with Neurology team. # Hypertension - Controlled blood pressure. - Keep current medications including Lisinopril 2.5mg daily, Metoprolol succinate 50mg daily. - Patient counseled to keep a healthy lifestyle including regular exercise and low-sodium diet. - Recommended home blood pressure monitoring. - Goal of BP < 130/80mmHg. # Hyperlipidemia - Controlled by PCP. - Keep home medication with Atorvastatin 80mg daily. - Counseled on healthy diet and regular exercise. We have discussed the most common side effects of the prescribed medications, indications, drug interactions, risks, complications, and alternatives of medications/therapeutics were explained and discussed. The patient has been requested to monitor closely for any untoward side effects or complications of medications. The patient has been strongly advised to be compliant with the recommendations, all the questions and concerns have been addressed. The patient has been also instructed to call, to return sooner or to go to the emergency department if symptoms persist or get worsen. The patient voiced understanding and denies any further questions at this time. This note was transcribed using the [employer] Dictation system. There may be grammatical, punctuation, or verbiage errors that occur with voice recognition programs. Counseling greater than 50% of visit regarding all cardiac issues. Thank you, Dr. Barba, for allowing me to participate in the care of this patient. Please do not hesitate to contact me with any further questions or concerns. Emanuel Kwong MD Cardiology documented in this encounter [facility] Work Phone: 10-04-2024 History of Present illness Narrative Attempted to call nurse to nurse report to [facility] left message as there was no answer. Instructed them to call back phone number given [phone]. Will make another attempt. 10/04/24 1050 Discharge Planning Living Arrangements Spouse/significant other Support Systems Spouse/significant other Type of Post Acute Facility Services correction Expected Discharge Disposition SNF Does the patient need discharge transport arranged? Yes RoundTrip coordination needed? Yes Has discharge transport been arranged? Yes What day is the transport expected? 10/04/24 What time is the transport expected? 1200 Patient is medically ready for discharge. Auth has been obtained from [facility]. They will be transportation patient back to the facility. Transport is set for 12 pm. Updated clinicals has been submitted. CARDIAC SURGERY DAILY PROGRESS NOTE Cisco Saini is a 68 y.o. male, with hx of HTN, HLD, CAD, depression, recent left lacunar infarct with right hemiplegia. 09/27/2024 OPERATIONS / PROCEDURES: Dr Elisabeth Atkins #1 Off Pump CABG x 3; HURTADO- LAD, SVG-OM-PDA Echo Pre/Post: 60-65%, normal function Chest Tubes/Drains: Right and left pleural, mediastinal Temporary wires location/setting: V wires, backup @ 60 CTICU Course: Uneventful Transfer to floor: 09/28 == Interval History: Uneventful night SUBJECTIVE: No complaints today Objective BP 103/72 (BP Location: Left arm, Patient Position: Lying) Pulse 85 Temp 36.9 C (98.4 F) (Temporal) Resp 18 Ht 1.676 m (5' 6) Wt 78.4 kg (172 lb 12.8 oz) Comment: Patient refused standing weight SpO2 94% BMI 27.89 kg/m 0-10 (Numeric) Pain Score: 0 - No pain 3 Day Weight Change: -0.272 kg (-9.6 oz) per day Intake and Output Intake/Output Summary (Last 24 hours) at 10/04/2024 1043 Last data filed at 10/04/2024 0504 Gross per 24 hour Intake 480 ml Output 900 ml Net -420 ml Physical Exam Physical Exam Vitals and nursing note reviewed. Constitutional: General: He is not in acute distress. Comments: Sitting in bed HENT: Head: Normocephalic and atraumatic. Mouth/Throat: Mouth: Mucous membranes are moist. Eyes: Conjunctiva/sclera: Conjunctivae normal. Cardiovascular: Rate and Rhythm: Normal rate and regular rhythm. Pulses: Normal pulses. Heart sounds: Normal heart sounds, S1 normal and S2 normal. Comments: SR 80s-90s Wires capped 10/03; cut 10/04 Pulmonary: Effort: Pulmonary effort is normal. Comments: Diminished bases. On RA Sternum stable Abdominal: General: Bowel sounds are normal. There is no distension. Palpations: Abdomen is soft. Tenderness: There is no abdominal tenderness. Comments: BM 10/02 Genitourinary: Comments: Voiding independently Musculoskeletal: Cervical back: Neck supple. Comments: Right arm/ hand splint. Right sided weakness, at baseline Skin: General: Skin is warm and dry. Capillary Refill: Capillary refill takes less than 2 seconds. Comments: midsternal chest incision C/D/I, well approximated, no s/s infection, R SVG incision C/D/I, well approximated, no s/s infection Sternum stable Neurological: Mental Status: He is alert and oriented to person, place, and time. Mental status is at baseline. Motor: Weakness (right sided weakness - at baseline per patient) present. Psychiatric: Mood and Affect: Mood normal. Behavior: Behavior normal. Behavior is cooperative. Medications Scheduled medications acetaminophen, 650 mg, oral, q6h aspirin, 81 mg, oral, Daily atorvastatin, 80 mg, oral, Nightly clopidogrel, 75 mg, oral, Daily docusate sodium, 100 mg, oral, BID furosemide, 20 mg, oral, Daily gabapentin, 200 mg, oral, BID heparin (porcine), 5,000 Units, subcutaneous, q8h iron polysaccharides, 150 mg, oral, Daily metoprolol succinate XL, 50 mg, oral, Daily multivitamin with minerals, 1 tablet, oral, Daily polyethylene glycol, 17 g, oral, BID sertraline, 50 mg, oral, Daily Continuous medications PRN medications PRN medications: dextrose, dextrose, glucagon, glucagon, hydrALAZINE, naloxone, ondansetron OR ondansetron, oxyCODONE, oxygen Labs Results for orders placed or performed during the hospital encounter of 09/27/24 (from the past 24 hours) Sars-CoV-2 PCR Result Value Ref Range Coronavirus 2019, PCR Not Detected Not Detected Renal Function Panel Result Value Ref Range Glucose 102 (H) 74 - 99 mg/dL Sodium 138 136 - 145 mmol/L Potassium 4.0 3.5 - 5.3 mmol/L Chloride 103 98 - 107 mmol/L Bicarbonate 26 21 - 32 mmol/L Anion Gap 13 10 - 20 mmol/L Urea Nitrogen 12 6 - 23 mg/dL Creatinine 0.90 0.50 - 1.30 mg/dL eGFR >90 >60 mL/min/1.73m*2 Calcium 8.7 8.6 - 10.6 mg/dL Phosphorus 3.7 2.5 - 4.9 mg/dL Albumin 3.3 (L) 3.4 - 5.0 g/dL Magnesium Result Value Ref Range Magnesium 2.03 1.60 - 2.40 mg/dL CBC Result Value Ref Range WBC 11.4 (H) 4.4 - 11.3 x10*3/uL nRBC 0.0 0.0 - 0.0 /100 WBCs RBC 3.44 (L) 4.50 - 5.90 x10*6/uL Hemoglobin 10.5 (L) 13.5 - 17.5 g/dL Hematocrit 32.0 (L) 41.0 - 52.0 % MCV 93 80 - 100 fL MCH 30.5 26.0 - 34.0 pg MCHC 32.8 32.0 - 36.0 g/dL RDW 13.9 11.5 - 14.5 % Platelets 365 150 - 450 x10*3/uL IMAGING/ DIAGNOSTIC TESTING: I have personally reviewed the following test result(s): XR chest 2 views 10/01/2024 Impression 1. Subsegmental atelectasis left lower lobe and small left pleural effusion 2. Linear atelectasis and trace right pleural effusion likely IMPRESSION & PLAN: POD # 7 s/p off pump CABG x3 on 09/27 - Increase activity/ ambulation; PT/OT - Encourage IS, C/DB; respiratory therapy; wean O2 as julisa -> on RA - Cardiac rehab referral - Continue cardiac meds: ASA, Plavix, BB, statin - continue plavix x1 month for off-pump CABG (also NSTEMI) --> restarted 10/[address] removal 09/30 - adding low dose lisinopril at dc - Pain and anticonstipation meds - Chest tubes removed 09/30 - 2v CXR 10/01 - 10/04 Cut epicardial wires - Tele until discharge - Optimize nutrition and electrolytes Rhythm - Tele: SR 70s-90s - start low dose BB 09/29 - 10/01 increased Metop tartrate to 25 mg PO BID, ordered Metoprolol Succinate 50 mg XL to start 10/02 - Adjust medications as tolerated - Wires capped 10/02; cut 10/04 Acute Blood Loss Anemia Recent Labs 10/04/24 0524 10/03/24 0652 10/02/24 0540 10/01/24 0549 09/30/24 0526 09/29/24 0549 09/28/24 0026 HGB 10.5* 10.0* 9.6* 9.3* 9.4* 9.8* 10.5* HCT 32.0* 30.4* 28.8* 27.4* 28.9* 29.9* 31.5* - MV, PO Iron x1mo - Daily labs, transfuse as indicated Platelets Recent Labs 10/04/24 0524 10/03/24 0652 10/02/24 0540 10/01/24 0549 09/30/24 0526 09/29/24 0549 09/28/24 0026 PLT 365 339 322 272 273 252 250 - Etiology likely postop/CPB related - Continue to trend with daily CBCs Volume/Electrolyte Status: Preop wt Weight: 78.5 kg (173 lb) Vitals: 10/04/24 0504 Weight: 78.4 kg (172 lb 12.8 oz) - Weight: 78.4, 79.9 kg, 79.2 kg (pt has refused to get up for weights last couple days) - Adjust diuresis as needed for postop cardiac surgery hypervolemia - Replete electrolytes for hypokalemia/hypomagnesemia/hypopho sphatemia as needed: 10/02 replaced K - Daily weights and strict I&Os - Daily RFP while admitted - 09/30 40 mg IV lasix - 10/02 changed lasix to 20 mg oral daily - discharging on short course of oral lasix Leukocytosis Recent Labs 10/04/24 0524 10/03/24 0652 10/02/24 0540 10/01/24 0549 09/30/24 0526 09/29/24 0549 09/28/24 0026 WBC 11.4* 8.9 9.2 9.8 11.1 11.8* 11.5* Temp (36hrs), Av.7 C (98 F), Min:36.1 C (97 F), Max:37.4 C (99.3 F) - aggressive pulmonary hygiene - monitor for s/s infection - likely atelectasis/ postoperative in etiology - daily CBC to follow Hypertension: home meds: lisinopril 5 mg daily, toprol XL 25mg daily Systolic (24hrs), Av , Min:100 , Max:127 - continue BB - holding home lisinopril in pt; resuming at 2.5 mg daily at dc - additional antihypertensives as needed Hyperlipidemia: home atorvastatin 40mg daily Lab Results Component Value Date CHOL 235 (H) 07/08/2024 LDLCALC 174 (H) 07/08/2024 HDL 46.0 07/08/2024 VLDL 15 07/08/2024 TRIG 75 07/08/2024 NHDL 189 (H) 07/08/2024 - continue high intensity statin - follow up lipid panel with PCP/ clinical trials manager for ongoing lipid management Depression -continue home medications: zoloft 50 mg daily -offer support -sleep/ wake cycle hygiene -control pain with PRN meds Recent lacunar infarct with right sided weakness - currently at baseline per patient - PT/OT VTE Prophylaxis: SCDs/TEDs, ambulation, SQ heparin Code Status: Full Code Dispo - PT/OT recs moderate intensity therapy; has been living at [facility] and wishes to return there at discharge; 10/02 precert started; 10/04 precert obtained - Anticipate discharge when precert obtained; facility has also requested COVID test before acceptance-> covid negative; discharge to snf 10/04 afternoon - Will continue to assess discharge needs TAM Rivera Cardiac Surgery [facility] Team Physical Therapy Physical Therapy Treatment Patient Name: Cisco Saini Department: [place] [id number] Room: [address] [place] [address] Today's Date: 10/03/2024 Time Calculation Start Time: 1435 Stop Time: 1451 Time Calculation (min): 16 min Assessment/Plan PT Assessment PT Assessment Results: Decreased strength, Decreased endurance, Impaired balance, Decreased mobility, Decreased coordination Rehab Prognosis: Good Barriers to Discharge: None Evaluation/Treatment Tolerance: Patient tolerated treatment well Medical Staff Made Aware: Yes Strengths: Ability to acquire knowledge, Attitude of self Barriers to Participation: Comorbidities, Support of Caregivers End of Session Communication: Bedside nurse Assessment Comment: Patient tolerated increased amb distance this date. Required prolonged seated rest break in hallway due to increased SOB. Remains appropriate for MOD intensity PT. End of Session Patient Position: (seated on toliet in bathroom. CTA and RN aware) PT Plan Treatment/Interventions: Bed mobility, Transfer training, Gait training, Balance training, Strengthening, Endurance training, Therapeutic exercise, Therapeutic activity PT Plan: Ongoing PT PT Frequency: 5 times per week PT Discharge Recommendations: Moderate intensity level of continued care PT Recommended Transfer Status: Assist x1, Assistive device PT - OK to Discharge: Yes General Visit Information: PT Visit PT Received On: 10/03/24 Response to Previous Treatment: Patient with no complaints from previous session. General Family/Caregiver Present: No Prior to Session Communication: Bedside nurse Patient Position Received: Bed, 3 rail up, Alarm off, not on at start of session Preferred Learning Style: verbal, visual General Comment: Patient willing to participate in therapy session Subjective Precautions: Precautions Medical Precautions: Cardiac precautions, Fall precautions Post-Surgical Precautions: Move in the Tube Braces Applied: R WHFO Vital Signs (Past 2hrs) Date/Time Vitals Session Patient Position Pulse Resp SpO2 BP MAP (mmHg) 10/03/24 1421 -- -- 87 18 95 % 100/67 78 Vital Signs Comment: HR ranged between 103bpm-120bpm during activity. O2: 96% on RA post amb Objective Pain: Pain Assessment Pain Assessment: 0-10 0-10 (Numeric) Pain Score: 0 - No pain Cognition: Cognition Orientation Level: Oriented X4 Coordination: Postural Control: Static Sitting Balance Static Sitting-Balance Support: Feet supported Static Sitting-Level of Assistance: Close supervision Static Standing Balance Static Standing-Balance Support: Left upper extremity supported Static Standing-Level of Assistance: Contact guard Static Standing-Comment/Number of Minutes: with quad cane Dynamic Standing Balance Dynamic Standing-Balance Support: Left upper extremity supported Dynamic Standing-Level of Assistance: Minimum assistance Dynamic Standing-Balance: Turning Dynamic Standing-Comments: with quad cane \ Activity Tolerance: Activity Tolerance Endurance: Tolerates 10 - 20 min exercise with multiple rests Treatments: Bed Mobility Bed Mobility: Yes Bed Mobility 1 Bed Mobility 1: Supine to sitting, Log roll Level of Assistance 1: Minimum assistance, Moderate verbal cues Bed Mobility Comments 1: cues for proper technique Ambulation/Gait Training Ambulation/Gait Training Performed: Yes Ambulation/Gait Training 1 Surface 1: Level tile Device 1: (quad cane) Assistance 1: Minimum assistance, Minimal verbal cues Quality of Gait 1: Inconsistent stride length, Decreased step length Comments/Distance (ft) 1: 40 ft x 2, 10 ft Transfers Transfer: Yes Transfer 1 Transfer From 1: Sit to, Stand to Transfer to 1: Stand, Sit Technique 1: Sit to stand, Stand to sit Transfer Device 1: Quad cane Transfer Level of Assistance 1: Minimum assistance, Minimal verbal cues Trials/Comments 1: x3 trials (performed from various surface heights) Outcome Measures: [facility] Basic Mobility Turning from your back to your side while in a flat bed without using bedrails: A little Moving from lying on your back to sitting on the side of a flat bed without using bedrails: A lot Moving to and from bed to chair (including a wheelchair): A little Standing up from a chair using your arms (e.g. wheelchair or bedside chair): A little To walk in hospital room: A little Climbing 3-5 steps with railing: A lot Basic Mobility - Total Score: 16 Education Documentation Handouts, taught by Mercedes Sharma PTA at 10/03/2024 3:00 PM. Learner: Patient Readiness: Acceptance Method: Explanation Response: Verbalizes Understanding Comment: Reviewed rehab POC Precautions, taught by Mercedes Sharma PTA at 10/03/2024 3:00 PM. Learner: Patient Readiness: Acceptance Method: Explanation Response: Verbalizes Understanding Comment: Reviewed rehab POC Body Mechanics, taught by Mercedes Sharma PTA at 10/03/2024 3:00 PM. Learner: Patient Readiness: Acceptance Method: Explanation Response: Verbalizes Understanding Comment: Reviewed rehab POC Mobility Training, taught by Mercedes Sharma PTA at 10/03/2024 3:00 PM. Learner: Patient Readiness: Acceptance Method: Explanation Response: Verbalizes Understanding Comment: Reviewed rehab POC Education Comments No comments found. OP EDUCATION: Encounter Problems Encounter Problems (Active) Balance Pt will demonstrate ability to complete standing static/dynamic balance activities with unilateral UE support and no LOB for increase in safety up D/C. (Progressing) Start: 09/28/24 Expected End: 10/12/24 Mobility Pt will demonstrated ability to ambulate >/=50ft with proper form, CGA, LRAD and no balance deficits for safe DC. (Progressing) Start: 09/28/24 Expected End: 10/12/24 Pt will be able to tolerate >15 minutes of standing activity continuously without seated rest break with stable vitals and RPD </=3/10 and RPE </=13/20 for improved functional mobility (Progressing) Start: 09/28/24 Expected End: 10/12/24 PT Transfers Pt will demonstrated ability to complete bed mobility and sit<>stand transfers without assistance and use of assistive device to safely DC. (Progressing) Start: 09/28/24 Expected End: 10/12/24 Cosigned by Lupe Chiu, PT at 10/04/2024 8:34 AM EST 10/03/24 1226 Discharge Planning Home or Post Acute Services Post acute facilities (Rehab/SNF/etc) Type of Post Acute Facility Services correction Expected Discharge Disposition SNF Pt to be returning to [facility] . Precert still pending. Results pending for Covid test. This TCC will continue to monitor and update with any changes. 1420 This TCC, sent updated progress notes and Covid test results to facility. Precert still pending. This TCC will continue to monitor and update with any changes. Kamron Hampton PRN, TCC [phone] [email or web address] Precert still pending. Transport set via roundtrip for10/04 on will call status. CARDIAC SURGERY DAILY PROGRESS NOTE Cisco Saini is a 68 y.o. male, with hx of HTN, HLD, CAD, depression, recent left lacunar infarct with right hemiplegia. 09/27/2024 OPERATIONS / PROCEDURES: Dr Elisabeth Atkins #1 Off Pump CABG x 3; HURTADO- LAD, SVG-OM-PDA Echo Pre/Post: 60-65%, normal function Chest Tubes/Drains: Right and left pleural, mediastinal Temporary wires location/setting: V wires, backup @ 60 CTICU Course: Uneventful Transfer to floor: 09/28 == Interval History: Uneventful night SUBJECTIVE: No complaints today Objective BP 114/75 (BP Location: Left arm, Patient Position: Lying) Pulse 93 Temp 36.2 C (97.2 F) (Temporal) Resp 16 Ht 1.676 m (5' 6) Wt 79.9 kg (176 lb 1.6 oz) SpO2 94% BMI 28.42 kg/m 0-10 (Numeric) Pain Score: 0 - No pain 3 Day Weight Change: Unable to Calculate Intake and Output Intake/Output Summary (Last 24 hours) at 10/03/2024 1212 Last data filed at 10/03/2024 0700 Gross per 24 hour Intake 360 ml Output 1580 ml Net -1220 ml Physical Exam Physical Exam Vitals and nursing note reviewed. Constitutional: General: He is not in acute distress. HENT: Head: Normocephalic and atraumatic. Mouth/Throat: Mouth: Mucous membranes are moist. Eyes: Conjunctiva/sclera: Conjunctivae normal. Cardiovascular: Rate and Rhythm: Normal rate and regular rhythm. Pulses: Normal pulses. Heart sounds: S1 normal and S2 normal. Comments: SR 80s-90s Wires capped 10/03 Pulmonary: Effort: Pulmonary effort is normal. Breath sounds: Normal breath sounds. Comments: Diminished bases. On RA Sternum stable Abdominal: General: Bowel sounds are normal. There is no distension. Palpations: Abdomen is soft. Tenderness: There is no abdominal tenderness. Comments: 10/02 Genitourinary: Comments: Voiding independently Musculoskeletal: Cervical back: Neck supple. Comments: Right arm/ hand splint. Right sided weakness, at baseline Skin: General: Skin is warm and dry. Comments: midsternal chest incision C/D/I, well approximated, no s/s infection, SVG incision C/D/I, well approximated, no s/s infection Sternum stable Neurological: General: No focal deficit present. Mental Status: He is alert and oriented to person, place, and time. Motor: Weakness (right sided weakness - at baseline per patient) present. Psychiatric: Mood and Affect: Mood normal. Behavior: Behavior normal. Behavior is cooperative. Medications Scheduled medications acetaminophen, 650 mg, oral, q6h aspirin, 81 mg, oral, Daily atorvastatin, 80 mg, oral, Nightly clopidogrel, 75 mg, oral, Daily furosemide, 20 mg, oral, Daily gabapentin, 200 mg, oral, BID heparin (porcine), 5,000 Units, subcutaneous, q8h iron polysaccharides, 150 mg, oral, Daily metoprolol succinate XL, 50 mg, oral, Daily multivitamin with minerals, 1 tablet, oral, Daily polyethylene glycol, 17 g, oral, BID sennosides-docusate sodium, 2 tablet, oral, BID sertraline, 50 mg, oral, Daily Continuous medications PRN medications PRN medications: dextrose, dextrose, glucagon, glucagon, hydrALAZINE, naloxone, ondansetron OR ondansetron, oxyCODONE, oxygen Labs Results for orders placed or performed during the hospital encounter of 09/27/24 (from the past 24 hours) Renal Function Panel Result Value Ref Range Glucose 84 74 - 99 mg/dL Sodium 138 136 - 145 mmol/L Potassium 3.9 3.5 - 5.3 mmol/L Chloride 102 98 - 107 mmol/L Bicarbonate 26 21 - 32 mmol/L Anion Gap 14 10 - 20 mmol/L Urea Nitrogen 11 6 - 23 mg/dL Creatinine 0.88 0.50 - 1.30 mg/dL eGFR >90 >60 mL/min/1.73m*2 Calcium 8.7 8.6 - 10.6 mg/dL Phosphorus 3.4 2.5 - 4.9 mg/dL Albumin 3.3 (L) 3.4 - 5.0 g/dL Magnesium Result Value Ref Range Magnesium 2.02 1.60 - 2.40 mg/dL CBC Result Value Ref Range WBC 8.9 4.4 - 11.3 x10*3/uL nRBC 0.2 (H) 0.0 - 0.0 /100 WBCs RBC 3.29 (L) 4.50 - 5.90 x10*6/uL Hemoglobin 10.0 (L) 13.5 - 17.5 g/dL Hematocrit 30.4 (L) 41.0 - 52.0 % MCV 92 80 - 100 fL MCH 30.4 26.0 - 34.0 pg MCHC 32.9 32.0 - 36.0 g/dL RDW 13.2 11.5 - 14.5 % Platelets 339 150 - 450 x10*3/uL IMAGING/ DIAGNOSTIC TESTING: I have personally reviewed the following test result(s): XR chest 2 views 10/01/2024 Impression 1. Subsegmental atelectasis left lower lobe and small left pleural effusion 2. Linear atelectasis and trace right pleural effusion likely IMPRESSION & PLAN: POD # 6 s/p off pump CABG x3 on 09/27 - Increase activity/ ambulation; PT/OT - Encourage IS, C/DB; respiratory therapy; wean O2 as julisa - Cardiac rehab referral - Continue cardiac meds: ASA, Plavix, BB, statin - continue plavix x1 month for off-pump CABG (also NSTEMI) --> restarted 10/[address] removal 09/30 - Pain and anticonstipation meds - Chest tubes removed 09/30 - 2v CXR 10/01 - Cut epicardial wires prior to discharge - Tele until discharge - Optimize nutrition and electrolytes Rhythm - Tele: SR 70s-80s - start low dose BB 09/29 - 10/01 increased Metop tartrate to 25 mg PO BID, ordered Metoprolol Succinate 50 mg XL to start 10/02 - Adjust medications as tolerated - Wires capped 10/02 Acute Blood Loss Anemia Recent Labs 10/03/24 0652 10/02/24 0540 10/01/24 0549 09/30/24 0526 09/29/24 0549 09/28/24 0026 09/27/24 1514 HGB 10.0* 9.6* 9.3* 9.4* 9.8* 10.5* 11.6* HCT 30.4* 28.8* 27.4* 28.9* 29.9* 31.5* 34.7* - MV, PO Iron x1mo - Daily labs, transfuse as indicated Platelets Recent Labs 10/03/24 0652 10/02/24 0540 10/01/24 0549 09/30/24 0526 09/29/24 0549 09/28/24 0026 09/27/24 1514 PLT 339 322 272 273 252 250 304 - Etiology likely postop/CPB related - Continue to trend with daily CBCs Volume/Electrolyte Status: Preop wt Weight: 78.5 kg (173 lb) Vitals: 10/01/242027 Weight: 79.9 kg (176 lb 1.6 oz) - Weight: 79.9 kg, 79.2 kg (pt has refused to get up for weights last couple days) - Adjust diuresis as needed for postop cardiac surgery hypervolemia - Replete electrolytes for hypokalemia/hypomagnesemia/hypopho sphatemia as needed: 10/02 replaced K - Daily weights and strict I&Os - Daily RFP while admitted - 09/30 40 mg IV lasix - 10/02 changed lasix to 20 mg oral daily Leukocytosis - resolved Recent Labs 10/03/24 0652 10/02/24 0540 10/01/24 0549 09/30/24 0526 09/29/24 0549 09/28/24 0026 09/27/24 1514 WBC 8.9 9.2 9.8 11.1 11.8* 11.5* 14.2* Temp (36hrs), Av.7 C (98 F), Min:36 C (96.8 F), Max:37.4 C (99.3 F) - aggressive pulmonary hygiene - monitor for s/s infection - likely atelectasis/ postoperative in etiology - daily CBC to follow Hypertension: home meds: lisinopril 5 mg daily, toprol XL 25mg daily Systolic (24hrs), Av , Min:100 , Max:116 - continue BB - holding home lisinopril - additional antihypertensives as needed Hyperlipidemia: home atorvastatin 40mg daily Lab Results Component Value Date CHOL 235 (H) 07/08/2024 LDLCALC 174 (H) 07/08/2024 HDL 46.0 07/08/2024 VLDL 15 07/08/2024 TRIG 75 07/08/2024 NHDL 189 (H) 07/08/2024 - continue high intensity statin - follow up lipid panel with PCP/ clinical trials manager for ongoing lipid management Depression -continue home medications: zoloft 50 mg daily -offer support -sleep/ wake cycle hygiene -control pain with PRN meds Recent lacunar infarct with right sided weakness - currently at baseline per patient - PT/OT VTE Prophylaxis: SCDs/TEDs, ambulation, SQ heparin Code Status: Full Code Dispo - PT/OT recs moderate intensity therapy; has been living at [facility] and wishes to return there at discharge; 10/02 precert started - Anticipate discharge when precert obtained; facility has also requested COVID test before acceptance - Will continue to assess discharge needs TAM Armenta APRN-CNP Cardiac Surgery [facility] Team CARDIAC SURGERY DAILY PROGRESS NOTE Cisco Saini is a 68 y.o. male, with hx of HTN, HLD, CAD, depression, recent left lacunar infarct with right hemiplegia. 09/27/2024 OPERATIONS / PROCEDURES: Dr Elisabeth Atkins #1 Off Pump CABG x 3; HURTADO- LAD, SVG-OM-PDA Echo Pre/Post: 60-65%, normal function Chest Tubes/Drains: Right and left pleural, mediastinal Temporary wires location/setting: V wires, backup @ 60 CTICU Course: Uneventful Transfer to floor: 09/28 == Interval History: Uneventful night SUBJECTIVE: No complaints today Objective BP 107/73 (BP Location: Left arm, Patient Position: Sitting) Pulse 88 Temp 36 C (96.8 F) (Temporal) Resp 18 Ht 1.676 m (5' 6) Wt 79.9 kg (176 lb 1.6 oz) SpO2 97% BMI 28.42 kg/m 0-10 (Numeric) Pain Score: 0 - No pain 3 Day Weight Change: Unable to Calculate Intake and Output Intake/Output Summary (Last 24 hours) at 10/02/2024 1450 Last data filed at 10/02/2024 1200 Gross per 24 hour Intake 480 ml Output 1300 ml Net -820 ml Physical Exam Physical Exam Vitals and nursing note reviewed. Constitutional: General: He is not in acute distress. Comments: Sitting in chair HENT: Head: Normocephalic and atraumatic. Mouth/Throat: Mouth: Mucous membranes are moist. Eyes: Conjunctiva/sclera: Conjunctivae normal. Cardiovascular: Rate and Rhythm: Normal rate and regular rhythm. Pulses: Normal pulses. Heart sounds: Normal heart sounds. Comments: SR 70s-80s Epicardial wires to temporary pacer backup - decreased to V50 during exam Pulmonary: Effort: Pulmonary effort is normal. Breath sounds: Normal breath sounds. Comments: Diminished bases O2 NC 2L Sternum stable Abdominal: General: Bowel sounds are normal. There is no distension. Palpations: Abdomen is soft. Tenderness: There is no abdominal tenderness. Comments: 10/01 Genitourinary: Comments: Voiding independently Musculoskeletal: Cervical back: Neck supple. Comments: Right arm/ hand splint Skin: General: Skin is warm and dry. Comments: midsternal chest incision C/D/I, well approximated, no s/s infection, SVG incision C/D/I, well approximated, no s/s infection Sternum stable Neurological: Mental Status: He is alert and oriented to person, place, and time. Motor: Weakness (right sided weakness - at baseline per patient) present. Psychiatric: Mood and Affect: Mood normal. Behavior: Behavior normal. Behavior is cooperative. Medications Scheduled medications acetaminophen, 650 mg, oral, q6h aspirin, 81 mg, oral, Daily atorvastatin, 80 mg, oral, Nightly clopidogrel, 75 mg, oral, Daily gabapentin, 200 mg, oral, BID heparin (porcine), 5,000 Units, subcutaneous, q8h iron polysaccharides, 150 mg, oral, Daily metoprolol succinate XL, 50 mg, oral, Daily multivitamin with minerals, 1 tablet, oral, Daily polyethylene glycol, 17 g, oral, BID sennosides-docusate sodium, 2 tablet, oral, BID sertraline, 50 mg, oral, Daily Continuous medications PRN medications PRN medications: dextrose, dextrose, glucagon, glucagon, hydrALAZINE, naloxone, ondansetron OR ondansetron, oxyCODONE, oxygen Labs Results for orders placed or performed during the hospital encounter of 09/27/24 (from the past 24 hours) POCT GLUCOSE Result Value Ref Range POCT Glucose 119 (H) 74 - 99 mg/dL Renal Function Panel Result Value Ref Range Glucose 86 74 - 99 mg/dL Sodium 137 136 - 145 mmol/L Potassium 3.6 3.5 - 5.3 mmol/L Chloride 100 98 - 107 mmol/L Bicarbonate 28 21 - 32 mmol/L Anion Gap 13 10 - 20 mmol/L Urea Nitrogen 12 6 - 23 mg/dL Creatinine 0.86 0.50 - 1.30 mg/dL eGFR >90 >60 mL/min/1.73m*2 Calcium 8.8 8.6 - 10.6 mg/dL Phosphorus 2.9 2.5 - 4.9 mg/dL Albumin 3.3 (L) 3.4 - 5.0 g/dL Magnesium Result Value Ref Range Magnesium 2.06 1.60 - 2.40 mg/dL CBC Result Value Ref Range WBC 9.2 4.4 - 11.3 x10*3/uL nRBC 0.4 (H) 0.0 - 0.0 /100 WBCs RBC 3.11 (L) 4.50 - 5.90 x10*6/uL Hemoglobin 9.6 (L) 13.5 - 17.5 g/dL Hematocrit 28.8 (L) 41.0 - 52.0 % MCV 93 80 - 100 fL MCH 30.9 26.0 - 34.0 pg MCHC 33.3 32.0 - 36.0 g/dL RDW 12.6 11.5 - 14.5 % Platelets 322 150 - 450 x10*3/uL IMAGING/ DIAGNOSTIC TESTING: I have personally reviewed the following test result(s): XR chest 2 views 10/01/2024 Impression 1. Subsegmental atelectasis left lower lobe and small left pleural effusion 2. Linear atelectasis and trace right pleural effusion likely IMPRESSION & PLAN: POD # 5 s/p off pump CABG x3 on 09/27 - Increase activity/ ambulation; PT/OT - Encourage IS, C/DB; respiratory therapy; wean O2 as julisa - Cardiac rehab referral - Continue cardiac meds: ASA, Plavix, BB, statin - continue plavix x1 month for off-pump CABG (also NSTEMI) --> restarted 10/[address] removal 09/30 - Pain and anticonstipation meds - Chest tubes removed 09/30 - 2v CXR 10/01 - Cut epicardial wires prior to discharge - Tele until discharge - Optimize nutrition and electrolytes Rhythm - Tele: SR 70s-80s - start low dose BB 09/29 - 10/01 increased Metop tartrate to 25 mg PO BID, ordered Metoprolol Succinate 50 mg XL to start 10/02 - Adjust medications as tolerated - Wires w/ backup pacer VVI 50 Acute Blood Loss Anemia Recent Labs 10/02/24 0540 10/01/24 0549 09/30/24 0526 09/29/24 0549 09/28/24 0026 09/27/24 1514 09/19/24 0831 HGB 9.6* 9.3* 9.4* 9.8* 10.5* 11.6* 15.1 HCT 28.8* 27.4* 28.9* 29.9* 31.5* 34.7* 46.4 - MV, PO Iron x1mo - Daily labs, transfuse as indicated Platelets Recent Labs 10/02/24 0540 10/01/24 0549 09/30/24 0526 09/29/24 0549 09/28/24 0026 09/27/24 1514 09/19/24 0831 PLT 322 272 273 252 250 304 343 - Etiology likely postop/CPB related - Continue to trend with daily CBCs Volume/Electrolyte Status: Preop wt Weight: 78.5 kg (173 lb) Vitals: 10/01/242027 Weight: 79.9 kg (176 lb 1.6 oz) - Weight: X, 79.2 kg (pt has refused to get up for weights last couple days) - Adjust diuresis as needed for postop cardiac surgery hypervolemia - Replete electrolytes for hypokalemia/hypomagnesemia/hypopho sphatemia as needed: 10/02 replaced K - Daily weights and strict I&Os - Daily RFP while admitted - 09/30 40 mg IV lasix - 10/02 added lasix 20 mg oral daily Leukocytosis - resolved Recent Labs 10/02/24 0540 10/01/24 0549 09/30/24 0526 09/29/24 0549 09/28/24 0026 09/27/24 1514 09/19/24 0831 WBC 9.2 9.8 11.1 11.8* 11.5* 14.2* 10.8 Temp (36hrs), Av.4 C (97.6 F), Min:36 C (96.8 F), Max:36.8 C (98.2 F) - aggressive pulmonary hygiene - monitor for s/s infection - likely atelectasis/ postoperative in etiology - daily CBC to follow Hypertension: home meds: lisinopril 5 mg daily, toprol XL 25mg daily Systolic (24hrs), Av , Min:102 , Max:115 - continue BB - holding home lisinopril - additional antihypertensives as needed Hyperlipidemia: home atorvastatin 40mg daily Lab Results Component Value Date CHOL 235 (H) 07/08/2024 LDLCALC 174 (H) 07/08/2024 HDL 46.0 07/08/2024 VLDL 15 07/08/2024 TRIG 75 07/08/2024 NHDL 189 (H) 07/08/2024 - continue high intensity statin - follow up lipid panel with PCP/ clinical trials manager for ongoing lipid management Depression -continue home medications: zoloft 50 mg daily -offer support -sleep/ wake cycle hygiene -control pain with PRN meds Recent lacunar infarct with right sided weakness - currently at baseline per patient - PT/OT VTE Prophylaxis: SCDs/TEDs, ambulation, SQ heparin Code Status: Full Code Dispo - PT/OT recs moderate intensity therapy; has been living at [facility] and wishes to return there at discharge; 10/02 precert started - Anticipate discharge when precert obtained - Will continue to assess discharge needs TAM Rivera Cardiac Surgery [facility] Team 10/02/24 1217 Discharge Planning Living Arrangements Spouse/significant other Support Systems Spouse/significant other;Children Type of Residence Private residence Who is requesting discharge planning? Provider Expected Discharge Disposition SNF Does the patient need discharge transport arranged? Yes RoundTrip coordination needed? Yes Has discharge transport been arranged? Yes Patient is a readmission s/p cardiac surgery. Patient will be a return to [facility] [phone]. Pre cert has been initiated for discharge planning. Patient will require a negative Covid for return. Occupational Therapy Occupational Therapy Treatment Name: Cisco Saini : 1955 Date: 10/02/24 Room: [address] [place] [address] Time Calculation Start Time: 958 Stop Time: 1008 Time Calculation (min): 9 min Assessment: OT Assessment: Pt demos increased understaning of splinting/positioning options for RUE folowing session. Continued skilled OT services are indicated at Mod intensity to continue work on pt's activity tolerance, balance, coordination, ROM, and strength to allow for a safe and funcitonal d/c. End of Session Communication: Bedside nurse End of Session Patient Position: Up in chair, Alarm off, not on at start of session Plan: Treatment Interventions: ADL retraining, Functional transfer training, UE strengthening/ROM, Endurance training, Patient/family training, Equipment evaluation/education, Neuromuscular reeducation, Fine motor coordination activities, Compensatory technique education, UE splinting OT Frequency: 4 times per week OT Discharge Recommendations: Moderate intensity level of continued care OT Recommended Transfer Status: Assist of 1 OT - OK to Discharge: Yes (continue with OT PLAN of care until dc) Subjective General: OT Last Visit OT Received On: 10/02/24 Reason for Referral: This 68 y/o male w/ recent hx of L lacunar infarct (07/15) w/ dysarthria and R hemiplegia, during hospitalization pt had NSTEMI. Pt now presents s/p elective off pump CABGx3 (HURTADO- LAD, SVG-OM-PDA) and PFO repair by Dr. Atkins. Past Medical History Relevant to Rehab: HTN, HLD, CAD, depression Prior to Session Communication: Bedside nurse Patient Position Received: Up in chair Family/Caregiver Present: No General Comment: Pt alert steated in chair s/p PT session. Pt demos decreased mood and slight agitation d/t wanting to return to rehab facility. Pt minimally engages in OT session on this date, declines dressing or transfers. Precautions: Medical Precautions: Cardiac precautions, Fall precautions, Oxygen therapy device and L/min Post-Surgical Precautions: Move in the Tube Braces Applied: R WHFO Precautions Comment: R julian Vitals: Vital Signs (Past 2hrs) Date/Time Vitals Session Patient Position Pulse Resp SpO2 BP MAP (mmHg) 10/02/24 1006 -- -- -- 17 94 % 107/67 80 Cognition: Overall Cognitive Status: Within Functional Limits Orientation Level: Oriented X4 Pain Assessment: Pain Assessment Pain Assessment: 0-10 0-10 (Numeric) Pain Score: 0 - No pain Objective Splinting: Splinting Location: RUE Type: Built up palm protector Splinting Education: Fitting, Wear schedule, Precautions Splinting Prefabricated: Other (Comment) (Palm protector) Splinting Comments: Continued pt edu on WHFO and palm protector. D/t weight, size, and limited mobility in the WHFO pt is recommended to wear at night. Pt requests built up palm protector for day time use. OTR provides edu on need for pt to use the hand as much as possible d/t being in the window of neuroplasticity, however for support/comfort built up palm protector may be worn. Pt verbalizes understanding. Pt requires Mod A for donning palm protector. Outcome Measures: [facility] Daily Activity Putting on and taking off regular lower body clothing: A lot Bathing (including washing, rinsing, drying): A lot Putting on and taking off regular upper body clothing: A lot Toileting, which includes using toilet, bedpan or urinal: A lot Taking care of personal grooming such as brushing teeth: A little Eating Meals: A little Daily Activity - Total Score: 14 Education Documentation Body Mechanics, taught by Brielle Atwood OT at 10/02/2024 11:21 AM. Learner: Patient Readiness: Acceptance Method: Explanation Response: Verbalizes Understanding Precautions, taught by Brielle Atwood OT at 10/02/2024 11:21 AM. Learner: Patient Readiness: Acceptance Method: Explanation Response: Verbalizes Understanding ADL Training, taught by Brielle Atwood OT at 10/02/2024 11:21 AM. Learner: Patient Readiness: Acceptance Method: Explanation Response: Verbalizes Understanding Body Mechanics, taught by Michelle Bautista OT at 10/01/2024 2:18 PM. Learner: Patient Readiness: Acceptance Method: Explanation Response: Verbalizes Understanding Precautions, taught by Michelle Bautista OT at 10/01/2024 2:18 PM. Learner: Patient Readiness: Acceptance Method: Explanation Response: Verbalizes Understanding ADL Training, taught by Michelle Bautista OT at 10/01/2024 2:18 PM. Learner: Patient Readiness: Acceptance Method: Explanation Response: Verbalizes Understanding Education Comments No comments found. Goals: Encounter Problems Encounter Problems (Active) ADLs Patient with complete upper body dressing with minimal assist level of assistance donning and doffing all UE clothes with PRN adaptive equipment while edge of bed (Progressing) Start: 09/29/24 Expected End: 10/13/24 Patient with complete lower body dressing with moderate assist level of assistance donning and doffing all LE clothes with PRN adaptive equipment while edge of bed (Progressing) Start: 09/29/24 Expected End: 10/13/24 Patient will feed self with set-up level of assistance using PRN adaptive equipment. (Progressing) Start: 09/29/24 Expected End: 10/13/24 Patient will complete daily grooming tasks brushing teeth and washing face/hair with set-up level of assistance and PRN adaptive equipment while edge of bed . (Progressing) Start: 09/29/24 Expected End: 10/13/24 Patient will complete toileting including hygiene clothing management/hygiene with minimal assist level of assistance and raised toilet seat. (Progressing) Start: 09/29/24 Expected End: 10/13/24 COGNITION/SAFETY Patient will recall and adhere to MITT precautions during all functional mobility/ADL tasks in order to demonstrate improved understanding and promote healing post op (Progressing) Start: 09/29/24 Expected End: 10/13/24 MOBILITY Patient will perform Functional mobility mod Household distances/Community Distances with contact guard assist level of assistance and least restrictive device in order to improve safety and functional mobility. (Progressing) Start: 09/29/24 Expected End: 10/13/24 SPLINTING Patient will shawna/doff RUE WHFO splint with stand by assist level of assistance. (Progressing) Start: 09/29/24 Expected End: 10/13/24 TRANSFERS Patient will perform bed mobility stand by assist level of assistance and bed rails in order to improve safety and independence with mobility (Progressing) Start: 09/29/24 Expected End: 10/13/24 Patient will complete functional transfer to toilet/chair with least restrictive device with minimal assist level of assistance. (Progressing) Start: 09/29/24 Expected End: 10/13/24 10/02/24 at 11:21 AM BRIELLE ATWOOD OT [phone] Physical Therapy Physical Therapy Treatment Patient Name: Cisco Saini Department: [place] [id number] Room: [address] [place] [address] Today's Date: 10/02/2024 Time Calculation Start Time: 920 Stop Time: 943 Time Calculation (min): 23 min Assessment/Plan PT Assessment PT Assessment Results: Decreased strength, Decreased endurance, Impaired balance, Decreased mobility, Decreased coordination Rehab Prognosis: Good Barriers to Discharge: None Evaluation/Treatment Tolerance: Patient tolerated treatment well Medical Staff Made Aware: Yes Strengths: Ability to acquire knowledge, Attitude of self Barriers to Participation: Comorbidities, Support of Caregivers End of Session Communication: Bedside nurse Assessment Comment: Pt demonstrated ability to complete bed mobility, sit<>stand transfer and bed>chair transfer. Min-modAx1 provided for all functional mobility. Vitals stable. Falls risk post stroke. Remains appropatie for MOD intensity post hospital stay. End of Session Patient Position: Up in chair, Alarm off, not on at start of session PT Plan Treatment/Interventions: Bed mobility, Transfer training, Gait training, Balance training, Strengthening, Endurance training, Therapeutic exercise, Therapeutic activity PT Plan: Ongoing PT PT Frequency: 5 times per week PT Discharge Recommendations: Moderate intensity level of continued care PT Recommended Transfer Status: Assist x1, Assistive device PT - OK to Discharge: Yes General Visit Information: PT Visit PT Received On: 10/02/24 Response to Previous Treatment: Patient with no complaints from previous session. General Family/Caregiver Present: No Prior to Session Communication: Bedside nurse Patient Position Received: Bed, 3 rail up, Alarm off, not on at start of session Preferred Learning Style: visual, verbal General Comment: Pt alert, pleasant, and agreeable to PT session Subjective Precautions: Precautions Medical Precautions: Cardiac precautions, Fall precautions, Oxygen therapy device and L/min Post-Surgical Precautions: Move in the Tube Vital Signs (Past 2hrs) Date/Time Vitals Session Patient Position Pulse Resp SpO2 BP MAP (mmHg) 10/02/24 0832 -- -- 88 -- -- 104/66 -- Vital Signs Comment: Pre tx: HR: 87bpm, Seated EOB: HR: 92bpm, Post session up in chair: HR: 91bpm, O2: 95% on 2L Objective Pain: Pain Assessment Pain Assessment: 0-10 0-10 (Numeric) Pain Score: 0 - No pain Cognition: Cognition Overall Cognitive Status: Within Functional Limits Orientation Level: Oriented X4 Coordination: Movements are Fluid and Coordinated: No Upper Body Coordination: RUE impaired Lower Body Coordination: RLE impaired Postural Control: Postural Control Postural Control: Within Functional Limits Static Sitting Balance Static Sitting-Balance Support: Feet supported, Bilateral upper extremity supported Static Sitting-Level of Assistance: Close supervision Dynamic Sitting Balance Dynamic Sitting-Balance Support: Bilateral upper extremity supported Dynamic Sitting-Level of Assistance: Contact guard Dynamic Sitting-Balance: (seated ther ex) Dynamic Sitting-Comments: required increased cues for upright posture and correction of increased post lean Static Standing Balance Static Standing-Balance Support: Right upper extremity supported (PAPER BAG PRESS OPERATOR) Static Standing-Level of Assistance: Minimum assistance Dynamic Standing Balance Dynamic Standing-Balance Support: Right upper extremity supported (PAPER BAG PRESS OPERATOR) Dynamic Standing-Level of Assistance: Moderate assistance Dynamic Standing-Balance: Turning (to chair at bedside) Activity Tolerance: Activity Tolerance Endurance: Tolerates 10 - 20 min exercise with multiple rests Treatments: Therapeutic Exercise Therapeutic Exercise Performed: Yes Therapeutic Exercise Activity 1: Seated german LE: LAQ x 10, hip flex x 10 Bed Mobility Bed Mobility: Yes Bed Mobility 1 Bed Mobility 1: Supine to sitting, Log roll Level of Assistance 1: Moderate assistance, Moderate verbal cues Bed Mobility Comments 1: HOB elevated (increasec cues for log roll technique) Ambulation/Gait Training Ambulation/Gait Training Performed: Yes Ambulation/Gait Training 1 Surface 1: Level tile Device 1: (R PAPER BAG PRESS OPERATOR) Assistance 1: Moderate assistance, Minimal verbal cues Quality of Gait 1: Decreased step length, Shuffling gait, Soft knee(s), Narrow base of support Comments/Distance (ft) 1: Able to take 3 steps over to chair at bedside (VCs for proper sequencing and safety) Transfers Transfer: Yes Transfer 1 Transfer From 1: Sit to, Stand to Transfer to 1: Stand, Sit Technique 1: Sit to stand, Stand to sit Transfer Device 1: (R PAPER BAG PRESS OPERATOR) Transfer Level of Assistance 1: Minimum assistance, Minimal verbal cues Outcome Measures: [facility] Basic Mobility Turning from your back to your side while in a flat bed without using bedrails: A little Moving from lying on your back to sitting on the side of a flat bed without using bedrails: A lot Moving to and from bed to chair (including a wheelchair): A lot Standing up from a chair using your arms (e.g. wheelchair or bedside chair): A little To walk in hospital room: A lot Climbing 3-5 steps with railing: Total Basic Mobility - Total Score: 13 Education Documentation Handouts, taught by Mercedes Sharma PTA at 10/02/2024 10:03 AM. Learner: Patient Readiness: Eager Method: Explanation Response: Needs Reinforcement Comment: Reviewed MITT precautions and log roll technique this date Precautions, taught by Mercedes Sharma PTA at 10/02/2024 10:03 AM. Learner: Patient Readiness: Eager Method: Explanation Response: Needs Reinforcement Comment: Reviewed MITT precautions and log roll technique this date Body Mechanics, taught by Mercedes Sharma PTA at 10/02/2024 10:03 AM. Learner: Patient Readiness: Eager Method: Explanation Response: Needs Reinforcement Comment: Reviewed MITT precautions and log roll technique this date Mobility Training, taught by Mercedes Sharma PTA at 10/02/2024 10:03 AM. Learner: Patient Readiness: Eager Method: Explanation Response: Needs Reinforcement Comment: Reviewed MITT precautions and log roll technique this date Education Comments No comments found. OP EDUCATION: Encounter Problems Encounter Problems (Active) Balance Pt will demonstrate ability to complete standing static/dynamic balance activities with unilateral UE support and no LOB for increase in safety up D/C. (Progressing) Start: 09/28/24 Expected End: 10/12/24 Mobility Pt will demonstrated ability to ambulate >/=50ft with proper form, CGA, LRAD and no balance deficits for safe DC. (Progressing) Start: 09/28/24 Expected End: 10/12/24 Pt will be able to tolerate >15 minutes of standing activity continuously without seated rest break with stable vitals and RPD </=3/10 and RPE </=13/20 for improved functional mobility (Progressing) Start: 09/28/24 Expected End: 10/12/24 PT Transfers Pt will demonstrated ability to complete bed mobility and sit<>stand transfers without assistance and use of assistive device to safely DC. (Progressing) Start: 09/28/24 Expected End: 10/12/24 Cosigned by Lupe Chiu, PT at 10/02/2024 11:16 AM EST CARDIAC SURGERY DAILY PROGRESS NOTE Cisco Saini is a 68 y.o. male, with hx of HTN, HLD, CAD, depression, recent left lacunar infarct with right hemiplegia. OPERATIONS / PROCEDURES: DR Mdeeiros on 09/27/24 #1 Off Pump CABG x 3; HURTADO- LAD, SVG-OM-PDA CTICU Course: Uneventful Transfer to floor: 09/28 == Interval History: No acute events overnight CT x 3 d/c'd 09/30 SR per monitor in the 80s SUBJECTIVE: No complaints today Objective BP 119/79 Pulse 89 Temp 36.4 C (97.5 F) Resp 19 Ht 1.676 m (5' 6) Wt 79.2 kg (174 lb 9.6 oz) SpO2 95% BMI 28.18 kg/m 0-10 (Numeric) Pain Score: 0 - No pain 3 Day Weight Change: Unable to Calculate Intake and Output Intake/Output Summary (Last 24 hours) at 10/01/2024 1216 Last data filed at 10/01/2024 1043 Gross per 24 hour Intake 840 ml Output 850 ml Net -10 ml Physical Exam Physical Exam Vitals and nursing note reviewed. Constitutional: General: He is not in acute distress. HENT: Head: Normocephalic. Mouth/Throat: Mouth: Mucous membranes are moist. Eyes: Conjunctiva/sclera: Conjunctivae normal. Cardiovascular: Rate and Rhythm: Normal rate and regular rhythm. Pulses: Normal pulses. Heart sounds: Normal heart sounds. Comments: SR 70s-80s Epicardial wires to temporary pacer backup VVI 60 Pulmonary: Effort: Pulmonary effort is normal. Breath sounds: Normal breath sounds. Comments: Diminished O2 NC 2L Abdominal: General: Bowel sounds are normal. Palpations: Abdomen is soft. Tenderness: There is no abdominal tenderness. Comments: Await postop BM Genitourinary: Comments: Voiding independently Musculoskeletal: Cervical back: Neck supple. Comments: Right arm/ hand splint Skin: General: Skin is warm and dry. Comments: midsternal chest incision C/D/I, well approximated, no s/s infection, SVG incision C/D/I, well approximated, no s/s infection Sternum stable Neurological: Mental Status: He is alert and oriented to person, place, and time. Motor: Weakness (right sided weakness - at baseline per patient) present. Psychiatric: Mood and Affect: Mood normal. Behavior: Behavior normal. Behavior is cooperative. Medications Scheduled medications acetaminophen, 650 mg, oral, q6h aspirin, 81 mg, oral, Daily atorvastatin, 80 mg, oral, Nightly clopidogrel, 75 mg, oral, Daily gabapentin, 200 mg, oral, BID heparin (porcine), 5,000 Units, subcutaneous, q8h [START ON 10/02/2024] metoprolol succinate XL, 50 mg, oral, Daily metoprolol tartrate, 25 mg, oral, Once polyethylene glycol, 17 g, oral, BID sennosides-docusate sodium, 2 tablet, oral, BID sertraline, 50 mg, oral, Daily Continuous medications PRN medications PRN medications: dextrose, dextrose, glucagon, glucagon, hydrALAZINE, naloxone, ondansetron OR ondansetron, oxyCODONE, oxygen Labs Results for orders placed or performed during the hospital encounter of 09/27/24 (from the past 24 hours) POCT GLUCOSE Result Value Ref Range POCT Glucose 121 (H) 74 - 99 mg/dL POCT GLUCOSE Result Value Ref Range POCT Glucose 126 (H) 74 - 99 mg/dL CBC Result Value Ref Range WBC 9.8 4.4 - 11.3 x10*3/uL nRBC 0.4 (H) 0.0 - 0.0 /100 WBCs RBC 2.93 (L) 4.50 - 5.90 x10*6/uL Hemoglobin 9.3 (L) 13.5 - 17.5 g/dL Hematocrit 27.4 (L) 41.0 - 52.0 % MCV 94 80 - 100 fL MCH 31.7 26.0 - 34.0 pg MCHC 33.9 32.0 - 36.0 g/dL RDW 12.3 11.5 - 14.5 % Platelets 272 150 - 450 x10*3/uL Renal Function Panel Result Value Ref Range Glucose 102 (H) 74 - 99 mg/dL Sodium 137 136 - 145 mmol/L Potassium 4.0 3.5 - 5.3 mmol/L Chloride 97 (L) 98 - 107 mmol/L Bicarbonate 31 21 - 32 mmol/L Anion Gap 13 10 - 20 mmol/L Urea Nitrogen 14 6 - 23 mg/dL Creatinine 0.93 0.50 - 1.30 mg/dL eGFR 89 >60 mL/min/1.73m*2 Calcium 8.6 8.6 - 10.6 mg/dL Phosphorus 3.2 2.5 - 4.9 mg/dL Albumin 3.3 (L) 3.4 - 5.0 g/dL Magnesium Result Value Ref Range Magnesium 1.98 1.60 - 2.40 mg/dL POCT GLUCOSE Result Value Ref Range POCT Glucose 111 (H) 74 - 99 mg/dL POCT GLUCOSE Result Value Ref Range POCT Glucose 115 (H) 74 - 99 mg/dL IMAGING/ DIAGNOSTIC TESTING: I have personally reviewed the following test result(s): XR chest 1 view 09/29/2024 Impression 1. Interstitial pulmonary edema is improved in comparison to previous study 2. Subsegmental atelectasis within left lower lobe 3. Trace left pleural effusion likely XR Chest 2 view 10/01/2024 Read pending ======= IMPRESSION & PLAN: POD # 5 s/p off pump CABG x3 - Increase activity/ ambulation; PT/OT - Encourage IS, C/DB; respiratory therapy; wean O2 as julisa - Cardiac rehab referral - Continue cardiac meds: ASA, BB, statin - continue plavix x1 month for off-pump CABG (also NSTEMI) --> restart 10/[address] removal 09/30 - Pain and anticonstipation meds - CT tubes removed 09/30 met chest tube removal protocol-> stat xray no pneumo post pull - 2v CXR 10/01- read pending - Cut epicardial wires prior to discharge - Tele until discharge - Optimize nutrition and electrolytes Rhythm - Tele: SR 70s-80s - start low dose BB 09/29 - 10/01 increased Metop tartrate to 25 mg PO BID, ordered Metoprolol Succinate 50 mg XL to start tomorrow 10/02 - Adjust medications as tolerated - Wires w/ backup pacer VVI, 60 Acute Blood Loss Anemia Recent Labs 10/01/24 0549 09/30/24 0526 09/29/24 0549 09/28/24 0026 09/27/24 1514 09/19/24 0831 08/15/24 0629 HGB 9.3* 9.4* 9.8* 10.5* 11.6* 15.1 14.3 HCT 27.4* 28.9* 29.9* 31.5* 34.7* 46.4 43.9 - MV, PO Iron x1mo - Daily labs, transfuse as indicated Thrombocytopenia Recent Labs 10/01/24 0549 09/30/24 0526 09/29/24 0549 09/28/24 0026 09/27/24 1514 09/19/24 0831 08/15/24 0629 PLT 272 273 252 250 304 343 247 - Etiology likely postop/CPB related - Continue to trend with daily CBCs Volume/Electrolyte Status: Preop wt Weight: 78.5 kg (173 lb) Vitals: 10/01/24 0430 Weight: 79.2 kg (174 lb 9.6 oz) - Weight: 79.2 kg (pt has refused to get up for weights last couple days) - Adjust diuresis as needed for postop cardiac surgery hypervolemia - Replete electrolytes for hypokalemia/hypomagnesemia/hypopho sphatemia as needed - Daily weights and strict I&Os - Daily RFP while admitted Leukocytosis Recent Labs 10/01/24 0549 09/30/24 0526 09/29/24 0549 09/28/24 0026 09/27/24 1514 09/19/24 0831 08/15/24 0629 WBC 9.8 11.1 11.8* 11.5* 14.2* 10.8 5.7 Temp (36hrs), Av.6 C (97.9 F), Min:36.2 C (97.2 F), Max:37.2 C (99 F) - aggressive pulmonary hygiene - monitor for s/s infection - likely atelectasis/ postoperative in etiology - daily CBC to follow Hypertension: home meds: lisinopril 5 mg daily, toprol XL 25mg daily Systolic (24hrs), Av , Min:101 , Max:129 - continue BB - holding home lisinopril - additional antihypertensives as needed Hyperlipidemia: home atorvastatin 40mg daily Lab Results Component Value Date CHOL 235 (H) 07/08/2024 LDLCALC 174 (H) 07/08/2024 HDL 46.0 07/08/2024 VLDL 15 07/08/2024 TRIG 75 07/08/2024 NHDL 189 (H) 07/08/2024 - continue high intensity statin - follow up lipid panel with PCP/ clinical trials manager for ongoing lipid management Depression -continue home medications: zoloft 50 mg daily -offer support -sleep/ wake cycle hygiene -control pain with PRN meds Recent lacunar infarct with right sided weakness - currently at baseline per patient - PT/OT VTE Prophylaxis: SCDs/TEDs, ambulation, SQ heparin Code Status: Full Code Dispo - PT/OT recs moderate intensity therapy; has been living at [facility] and wishes to return there at discharge - Anticipate discharge 1-2 days pending postop BM, improved ambulation - Will continue to assess discharge needs TAM Armenta APRN-CNP Cardiac Surgery [facility] Team 10/01/2024 12:16 PM CARDIAC SURGERY DAILY PROGRESS NOTE Cisco Saini is a 68 y.o. male, with hx of HTN, HLD, CAD, depression, recent left lacunar infarct with right hemiplegia. OPERATIONS / PROCEDURES: DR Medeiros on 09/27/24 #1 Off Pump CABG x 3; HURTADO- LAD, SVG-OM-PDA CTICU Course: Uneventful Transfer to floor: 09/28 == Interval History: No acute events overnight CT x 2 with minimal drainage overnight -> will remove SR per monitor in the 80s SUBJECTIVE: -Patient feels good-> just complains of pain with CT sites Objective BP 113/72 (BP Location: Left arm, Patient Position: Lying) Pulse 83 Temp 36.7 C (98.1 F) (Temporal) Resp 17 Ht 1.676 m (5' 6) Wt 78.5 kg (173 lb) SpO2 93% BMI 27.92 kg/m 0-10 (Numeric) Pain Score: 0 - No pain Gracia-Toro FACES Pain Rating: Hurts little bit 3 Day Weight Change: Unable to Calculate Intake and Output Intake/Output Summary (Last 24 hours) at 09/30/2024 0745 Last data filed at 09/30/2024 0005 Gross per 24 hour Intake 240 ml Output 1400 ml Net -1160 ml Physical Exam Physical Exam Vitals and nursing note reviewed. Constitutional: General: He is not in acute distress. HENT: Head: Normocephalic. Mouth/Throat: Mouth: Mucous membranes are moist. Eyes: Conjunctiva/sclera: Conjunctivae normal. Cardiovascular: Rate and Rhythm: Normal rate and regular rhythm. Pulses: Normal pulses. Heart sounds: Normal heart sounds. Comments: SR 70s-80s Epicardial wires to temporary pacer backup Pulmonary: Effort: Pulmonary effort is normal. Breath sounds: Normal breath sounds. Comments: Diminished O2 NC 3-4 lpm Abdominal: General: Bowel sounds are normal. Palpations: Abdomen is soft. Tenderness: There is no abdominal tenderness. Comments: Await postop BM Musculoskeletal: Right lower le+ Edema present. Left lower le+ Edema present. Comments: Right arm/ hand splint Skin: General: Skin is warm and dry. Comments: midsternal chest incision C/D/I, well approximated, no s/s infection, SVG incision C/D/I, well approximated, no s/s infection Sternum stable Neurological: Mental Status: He is alert and oriented to person, place, and time. Motor: Weakness (right sided weakness - at baseline per patient) present. Psychiatric: Mood and Affect: Mood normal. Behavior: Behavior normal. Behavior is cooperative. Medications Scheduled medications acetaminophen, 650 mg, oral, q6h aspirin, 81 mg, oral, Daily atorvastatin, 80 mg, oral, Nightly [Held by provider] clopidogrel, 75 mg, oral, Daily gabapentin, 200 mg, oral, BID heparin (porcine), 5,000 Units, subcutaneous, q8h insulin lispro, 0-10 Units, subcutaneous, TID AC metoprolol tartrate, 12.5 mg, oral, BID polyethylene glycol, 17 g, oral, BID sennosides-docusate sodium, 2 tablet, oral, BID sertraline, 50 mg, oral, Daily Continuous medications PRN medications PRN medications: dextrose, dextrose, glucagon, glucagon, hydrALAZINE, naloxone, ondansetron OR ondansetron, oxyCODONE, oxyCODONE, oxygen Labs Results for orders placed or performed during the hospital encounter of 09/27/24 (from the past 24 hours) POCT GLUCOSE Result Value Ref Range POCT Glucose 121 (H) 74 - 99 mg/dL POCT GLUCOSE Result Value Ref Range POCT Glucose 177 (H) 74 - 99 mg/dL POCT GLUCOSE Result Value Ref Range POCT Glucose 140 (H) 74 - 99 mg/dL POCT GLUCOSE Result Value Ref Range POCT Glucose 123 (H) 74 - 99 mg/dL Renal Function Panel Result Value Ref Range Glucose 115 (H) 74 - 99 mg/dL Sodium 137 136 - 145 mmol/L Potassium 4.2 3.5 - 5.3 mmol/L Chloride 98 98 - 107 mmol/L Bicarbonate 31 21 - 32 mmol/L Anion Gap 12 10 - 20 mmol/L Urea Nitrogen 17 6 - 23 mg/dL Creatinine 0.82 0.50 - 1.30 mg/dL eGFR >90 >60 mL/min/1.73m*2 Calcium 8.9 8.6 - 10.6 mg/dL Phosphorus 2.9 2.5 - 4.9 mg/dL Albumin 3.5 3.4 - 5.0 g/dL Magnesium Result Value Ref Range Magnesium 2.11 1.60 - 2.40 mg/dL CBC Result Value Ref Range WBC 11.1 4.4 - 11.3 x10*3/uL nRBC 0.2 (H) 0.0 - 0.0 /100 WBCs RBC 3.10 (L) 4.50 - 5.90 x10*6/uL Hemoglobin 9.4 (L) 13.5 - 17.5 g/dL Hematocrit 28.9 (L) 41.0 - 52.0 % MCV 93 80 - 100 fL MCH 30.3 26.0 - 34.0 pg MCHC 32.5 32.0 - 36.0 g/dL RDW 12.6 11.5 - 14.5 % Platelets 273 150 - 450 x10*3/uL IMAGING/ DIAGNOSTIC TESTING: I have personally reviewed the following test result(s): XR chest 1 view 09/29/2024 Impression 1. Interstitial pulmonary edema is improved in comparison to previous study 2. Subsegmental atelectasis within left lower lobe 3. Trace left pleural effusion likely IMPRESSION & PLAN: POD # 3 s/p off pump CABG x3 - Increase activity/ ambulation; PT/OT - Encourage IS, C/DB; respiratory therapy; wean O2 as julisa - Cardiac rehab referral - Continue cardiac meds: ASA, BB, statin - continue plavix x1 month for off-pump CABG (also NSTEMI) --> restart tomorrow am 10/[address] removal 09/30 - Pain and anticonstipation meds - CT tubes removed 09/30 met chest tube removal protocol-> stat xray no pneumo post pull - 2v CXR placed for tomorrow am 10/01 - Cut epicardial wires prior to discharge - Tele until discharge - Optimize nutrition and electrolytes Rhythm - Tele: SR 70s-80s - start low dose BB 09/29 - Adjust medications as tolerated Acute Blood Loss Anemia Recent Labs 09/30/24 0526 09/29/24 0549 09/28/24 0026 09/27/24 1514 09/19/24 0831 08/15/24 0629 07/13/24 0508 HGB 9.4* 9.8* 10.5* 11.6* 15.1 14.3 15.2 HCT 28.9* 29.9* 31.5* 34.7* 46.4 43.9 45.5 - MV, PO Iron x1mo - Daily labs, transfuse as indicated Thrombocytopenia Recent Labs 09/30/24 0526 09/29/24 0549 09/28/24 0026 09/27/24 1514 09/19/24 0831 08/15/24 0629 07/13/24 0508 PLT 273 252 250 304 343 247 245 - Etiology likely postop/CPB related - Continue to trend with daily CBCs Volume/Electrolyte Status: Preop wt Weight: 78.5 kg (173 lb) Vitals: 09/27/24 0645 Weight: 78.5 kg (173 lb) - Weight: not done - Adjust diuresis as needed for postop cardiac surgery hypervolemia - Replete electrolytes for hypokalemia/hypomagnesemia/hypopho sphatemia as needed - Daily weights and strict I&Os - Daily RFP while admitted Leukocytosis Recent Labs 09/30/24 0526 09/29/24 0549 09/28/24 0026 09/27/24 1514 09/19/24 0831 08/15/24 0629 07/13/24 0508 WBC 11.1 11.8* 11.5* 14.2* 10.8 5.7 8.4 Temp (36hrs), Av.6 C (97.9 F), Min:36.2 C (97.2 F), Max:37.2 C (99 F) - aggressive pulmonary hygiene - monitor for s/s infection - likely atelectasis/ postoperative in etiology - daily CBC to follow Hypertension: home meds: lisinopril 5 mg daily, toprol XL 25mg daily Systolic (24hrs), Av , Min:103 , Max:120 - continue BB - holding home lisinopril - additional antihypertensives as needed Hyperlipidemia: home atorvastatin 40mg daily Lab Results Component Value Date CHOL 235 (H) 07/08/2024 LDLCALC 174 (H) 07/08/2024 HDL 46.0 07/08/2024 VLDL 15 07/08/2024 TRIG 75 07/08/2024 NHDL 189 (H) 07/08/2024 - continue high intensity statin - follow up lipid panel with PCP/ clinical trials manager for ongoing lipid management Depression -continue home medications: zoloft 50 mg daily -offer support -sleep/ wake cycle hygiene -control pain with PRN meds Recent lacunar infarct with right sided weakness - currently at baseline per patient - PT/OT VTE Prophylaxis: SCDs/TEDs, ambulation, SQ heparin Code Status: Full Code Dispo - PT/OT recs moderate intensity therapy; has been living at [facility] and wishes to return there at discharge - Anticipate discharge 2-3 days - Will continue to assess discharge needs TAM Smith Card[facility] 09/30/2024 7:45 AM CARDIAC SURGERY DAILY PROGRESS NOTE Cisco Yaneli Saini is a 68 y.o. male, with hx of HTN, HLD, CAD, depression, recent left lacunar infarct with right hemiplegia. OPERATIONS / PROCEDURES: DR Medeiros on 09/27/24 #1 Off Pump CABG x 3; HURTADO- LAD, SVG-OM-PDA CTICU Course: Uneventful Transfer to floor: 09/28 == Interval History: Overnight uneventful SUBJECTIVE: Breathing feels better once up sitting in the chair Objective BP 120/80 (BP Location: Left arm, Patient Position: Sitting) Pulse 94 Temp 36.6 C (97.9 F) (Temporal) Resp 18 Ht 1.676 m (5' 6) Wt 78.5 kg (173 lb) SpO2 92% BMI 27.92 kg/m 0-10 (Numeric) Pain Score: 6 Garcia-Toro FACES Pain Rating: Hurts little bit 3 Day Weight Change: Unable to Calculate Intake and Output Intake/Output Summary (Last 24 hours) at 09/29/2024 1724 Last data filed at 09/29/2024 1329 Gross per 24 hour Intake 120 ml Output 440 ml Net -320 ml Physical Exam Physical Exam Vitals and nursing note reviewed. Constitutional: General: He is not in acute distress. HENT: Head: Normocephalic. Mouth/Throat: Mouth: Mucous membranes are moist. Eyes: Conjunctiva/sclera: Conjunctivae normal. Cardiovascular: Rate and Rhythm: Normal rate and regular rhythm. Pulses: Normal pulses. Heart sounds: Normal heart sounds. Comments: SR 70s-80s Epicardial wires to temporary pacer backup Pulmonary: Effort: Pulmonary effort is normal. Breath sounds: Normal breath sounds. Comments: Diminished O2 NC 3-4 lpm Abdominal: General: Bowel sounds are normal. Palpations: Abdomen is soft. Tenderness: There is no abdominal tenderness. Comments: Await postop BM Musculoskeletal: Right lower le+ Edema present. Left lower le+ Edema present. Comments: Right arm/ hand splint Skin: General: Skin is warm and dry. Comments: midsternal chest incision C/D/I, well approximated, no s/s infection, SVG incision C/D/I, well approximated, no s/s infection Sternum stable Neurological: Mental Status: He is alert and oriented to person, place, and time. Motor: Weakness (right sided weakness - at baseline per patient) present. Psychiatric: Mood and Affect: Mood normal. Behavior: Behavior normal. Behavior is cooperative. Medications Scheduled medications acetaminophen, 650 mg, oral, q6h aspirin, 81 mg, oral, Daily atorvastatin, 80 mg, oral, Nightly [Held by provider] clopidogrel, 75 mg, oral, Daily gabapentin, 200 mg, oral, BID heparin (porcine), 5,000 Units, subcutaneous, q8h insulin lispro, 0-10 Units, subcutaneous, TID AC metoprolol tartrate, 12.5 mg, oral, BID polyethylene glycol, 17 g, oral, BID sennosides-docusate sodium, 2 tablet, oral, BID sertraline, 50 mg, oral, Daily Continuous medications PRN medications PRN medications: dextrose, dextrose, glucagon, glucagon, hydrALAZINE, naloxone, ondansetron OR ondansetron, oxyCODONE, oxyCODONE, oxygen Labs Results for orders placed or performed during the hospital encounter of 09/27/24 (from the past 24 hours) POCT GLUCOSE Result Value Ref Range POCT Glucose 138 (H) 74 - 99 mg/dL Magnesium Result Value Ref Range Magnesium 2.30 1.60 - 2.40 mg/dL CBC Result Value Ref Range WBC 11.8 (H) 4.4 - 11.3 x10*3/uL nRBC 0.0 0.0 - 0.0 /100 WBCs RBC 3.17 (L) 4.50 - 5.90 x10*6/uL Hemoglobin 9.8 (L) 13.5 - 17.5 g/dL Hematocrit 29.9 (L) 41.0 - 52.0 % MCV 94 80 - 100 fL MCH 30.9 26.0 - 34.0 pg MCHC 32.8 32.0 - 36.0 g/dL RDW 12.4 11.5 - 14.5 % Platelets 252 150 - 450 x10*3/uL Renal Function Panel Result Value Ref Range Glucose 104 (H) 74 - 99 mg/dL Sodium 137 136 - 145 mmol/L Potassium 4.6 3.5 - 5.3 mmol/L Chloride 99 98 - 107 mmol/L Bicarbonate 30 21 - 32 mmol/L Anion Gap 13 10 - 20 mmol/L Urea Nitrogen 21 6 - 23 mg/dL Creatinine 1.08 0.50 - 1.30 mg/dL eGFR 74 >60 mL/min/1.73m*2 Calcium 8.7 8.6 - 10.6 mg/dL Phosphorus 3.5 2.5 - 4.9 mg/dL Albumin 3.8 3.4 - 5.0 g/dL POCT GLUCOSE Result Value Ref Range POCT Glucose 121 (H) 74 - 99 mg/dL POCT GLUCOSE Result Value Ref Range POCT Glucose 177 (H) 74 - 99 mg/dL POCT GLUCOSE Result Value Ref Range POCT Glucose 140 (H) 74 - 99 mg/dL IMAGING/ DIAGNOSTIC TESTING: I have personally reviewed the following test result(s): XR chest 1 view 09/29/2024 Impression 1. Interstitial pulmonary edema is improved in comparison to previous study 2. Subsegmental atelectasis within left lower lobe 3. Trace left pleural effusion likely IMPRESSION & PLAN: POD # 2 s/p off pump CABG x3 - Increase activity/ ambulation; PT/OT - Encourage IS, C/DB; respiratory therapy; wean O2 as julsia - Cardiac rehab referral - Continue cardiac meds: ASA, BB, statin - continue plavix x1 month for off-pump CABG (also NSTEMI) --> start after CT's are out - Pain and anticonstipation meds - 1 right pleural, 1 left pleural, and [address] to -20cm suction; - Maintain chest tubes until meet criteria to remove; monitor daily 1v PCXR while chest tubes in place - per Dr. Atkins, anabela to remove CT's in am 09/30 if meeting criteria - 2v CXR once CT's out - Cut epicardial wires prior to discharge - Tele until discharge - Optimize nutrition and electrolytes Rhythm - Tele: SR 70s-80s - start low dose BB 09/29 - Adjust medications as tolerated Acute Blood Loss Anemia Recent Labs 09/29/24 0549 09/28/24 0026 09/27/24 1514 09/19/24 0831 08/15/24 0629 07/13/24 0508 07/12/24 0516 HGB 9.8* 10.5* 11.6* 15.1 14.3 15.2 15.6 HCT 29.9* 31.5* 34.7* 46.4 43.9 45.5 46.5 - MV, PO Iron x1mo - Daily labs, transfuse as indicated Thrombocytopenia Recent Labs 09/29/24 0549 09/28/24 0026 09/27/24 1514 09/19/24 0831 08/15/24 0629 07/13/24 0508 07/12/24 0516 PLT 252 250 304 343 247 245 245 - Etiology likely postop/CPB related - Continue to trend with daily CBCs Volume/Electrolyte Status: Preop wt Weight: 78.5 kg (173 lb) Vitals: 09/27/24 0645 Weight: 78.5 kg (173 lb) - Weight: not done - Adjust diuresis as needed for postop cardiac surgery hypervolemia - Replete electrolytes for hypokalemia/hypomagnesemia/hypopho sphatemia as needed - Daily weights and strict I&Os - Daily RFP while admitted Leukocytosis Recent Labs 09/29/24 0549 09/28/24 0026 09/27/24 1514 09/19/24 0831 08/15/24 0629 07/13/24 0508 07/12/24 0516 WBC 11.8* 11.5* 14.2* 10.8 5.7 8.4 10.1 Temp (36hrs), Av.4 C (97.5 F), Min:35.5 C (95.9 F), Max:37 C (98.6 F) - aggressive pulmonary hygiene - monitor for s/s infection - likely atelectasis/ postoperative in etiology - daily CBC to follow Hypertension: home meds: lisinopril 5 mg daily, toprol XL 25mg daily Systolic (24hrs), Av , Min:101 , Max:120 - continue BB - holding home lisinopril - additional antihypertensives as needed Hyperlipidemia: home atorvastatin 40mg daily Lab Results Component Value Date CHOL 235 (H) 07/08/2024 LDLCALC 174 (H) 07/08/2024 HDL 46.0 07/08/2024 VLDL 15 07/08/2024 TRIG 75 07/08/2024 NHDL 189 (H) 07/08/2024 - continue high intensity statin - follow up lipid panel with PCP/ clinical trials manager for ongoing lipid management Depression -continue home medications: zoloft 50 mg daily -offer support -sleep/ wake cycle hygiene -control pain with PRN meds Recent lacunar infarct with right sided weakness - currently at baseline per patient - PT/OT VTE Prophylaxis: SCDs/TEDs, ambulation, SQ heparin Code Status: Full Code Dispo - PT/OT recs moderate intensity therapy; has been living at [facility] and wishes to return there at discharge - Anticipate discharge 2-3 days - Will continue to assess discharge needs TAM Fong Cardiac [facility] Team 09/29/2024 5:24 PM 09/29/24 [id number] Discharge Planning Living Arrangements Spouse/significant other Support Systems Spouse/significant other Type of Residence Private residence Do you have animals or pets at home? No Who is requesting discharge planning? Provider Home or Post Acute Services In home services Type of Home Care Services Home nursing visits Expected Discharge Disposition Home H Does the patient need discharge transport arranged? No Met with patient to introduce myself, role and discuss discharge planning. Patient has his own home, but has been living at [facility] and wishes to return. Patient requires assistance with adl's. Patient ambulates with a julian-cane. Patient denies any recent falls. Patient denies any issues with making follow up appointments or getting his medications. Patient hasn't seen his PCP in the last 12 years, but does see a physician at the current facility. Patient expressed no questions and no social work needs. Patient does a the facilities wheel chair. PCP: Dr. Debbie Barba [facility]acy: [facility] Care: N/A DME: N/A Occupational Therapy Evaluation and Treatment Patient Name: Cisco Saini Today's Date: 09/29/2024 Room: [facility] Time Calculation Start Time: 0940 Stop Time: 1028 Time Calculation (min): 48 min Assessment IP OT Assessment OT Assessment: Pt demonstrates deficits in strength, activity tolerance, coordincation, ROM, and balance resulting in the need for continued skilled OT services at Mod intensity to allow for a safe and functional d/c. Prognosis: Good Barriers to Discharge: Decreased caregiver support Evaluation/Treatment Tolerance: (Limited by pt nausea during session) Medical Staff Made Aware: Yes End of Session Communication: Bedside nurse End of Session Patient Position: Up in chair, Alarm off, not on at start of session Plan: Inpatient Plan Treatment Interventions: ADL retraining, Functional transfer training, UE strengthening/ROM, Endurance training, Patient/family training, Equipment evaluation/education, Neuromuscular reeducation, Fine motor coordination activities, Compensatory technique education, UE splinting OT Frequency: 4 times per week OT Discharge Recommendations: Moderate intensity level of continued care OT Recommended Transfer Status: Assist of 1 OT - OK to Discharge: Yes (when deemed medically appropriate) OT Assessment OT Assessment Results: Decreased ADL status, Decreased upper extremity range of motion, Decreased upper extremity strength, Decreased endurance, Decreased fine motor control, Decreased functional mobility, Decreased gross motor control, Decreased IADLs Prognosis: Good Barriers to Discharge: Decreased caregiver support Evaluation/Treatment Tolerance: (Limited by pt nausea during session) Medical Staff Made Aware: Yes Strengths: Ability to acquire knowledge, Attitude of self, Coping skills, Premorbid level of function Barriers to Participation: Comorbidities, Support of Caregivers Subjective Current Problem: 1. Coronary artery disease involving [place] coronary artery of [place] heart, unspecified whether angina present Anesthesia Intraoperative Transesophageal Echocardiogram Anesthesia Intraoperative Transesophageal Echocardiogram Admit to inpatient Admit to inpatient Anesthesia Intraoperative Transesophageal Echocardiogram Anesthesia Intraoperative Transesophageal Echocardiogram Inpatient consult to Respiratory Care Inpatient consult to Respiratory Care Referral to Cardiology Referral to Primary Care CANCELED: NPO Diet Except: Sips with meds; Effective now CANCELED: Height and weight CANCELED: Insert and maintain peripheral IV CANCELED: Saline lock IV CANCELED: Surgical preparation CANCELED: Bath/Shower with Chlorhexidine Gluconate CANCELED: NPO Diet Except: Sips with meds; Effective now CANCELED: Height and weight CANCELED: Insert and maintain peripheral IV CANCELED: Saline lock IV CANCELED: Surgical preparation CANCELED: Bath/Shower with Chlorhexidine Gluconate CANCELED: Type And Screen 2. Abnormal findings on diagnostic imaging of heart and coronary circulation Anesthesia Intraoperative Transesophageal Echocardiogram 3. Atherosclerotic heart disease of [place] coronary artery with unspecified angina pectoris Anesthesia Intraoperative Transesophageal Echocardiogram 4. Non-ST elevation (NSTEMI) myocardial infarction (Multi) Anesthesia Intraoperative Transesophageal Echocardiogram Referral to Cardiology Referral to Primary Care 5. S/P CABG (coronary artery bypass graft) Referral to Cardiology Referral to Primary Care General: Reason for Referral: This 68 y/o male w/ recent hx of L lacunar infarct (07/15) w/ dysarthria and R hemiplegia, during hospitalization pt had NSTEMI. Pt now presents s/p elective off pump CABGx3 (HURTADO- LAD, SVG-OM-PDA) and PFO repair by Dr. Atkins. Past Medical History Relevant to Rehab: HTN, HLD, CAD, depression Co-Treatment: PT Co-Treatment Reason: to maximize pt safety and therapeutic potential Prior to Session Communication: Bedside nurse Patient Position Received: Bed, 3 rail up, Alarm off, not on at start of session Family/Caregiver Present: No General Comment: Pt alert, pleasant, and agreeable to OT assessment Precautions: Medical Precautions: Cardiac precautions, Fall precautions, Oxygen therapy device and L/min, Chest tube (4L via NC) Post-Surgical Precautions: Move in the Tube Braces Applied: R WHFO Precautions Comment: R julian Pain: Pain Assessment Pain Assessment: 0-10 0-10 (Numeric) Pain Score: 6 Pain Type: Surgical pain Pain Location: Sternum Pain Frequency: Constant/continuous Pain Interventions: Medication (See MAR) Lines/Tubes/Drains: Chest Tube 1 Other (Comment) Pleural (Active) Number of days: 1 Chest Tube 2 Mediastinal (Active) Number of days: 1 Objective Cognition: Overall Cognitive Status: Within Functional Limits Orientation Level: Oriented X4 Attention: Within Functional Limits Memory: Within Funtional Limits Insight: Within function limits Impulsive: Within functional limits Home Living: Lives With: Alone Home Living Comments: Prior to CVA 07/15 pt lived alone in his house w/ 1st floor s/u and laundry in basement, was 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 Since CVA pt has been in SNF, w/ plans to return following this hospitalization Prior Function: ADL Assistance: Independent Homemaking Assistance: Independent Ambulatory Assistance: Independent Hand Dominance: (R handed prior to CVA, now emerging L hand) IADL History: Current License: Yes Mode of Transportation: Car ADL: Eating Assistance: Minimal Grooming Assistance: Minimal Bathing Assistance: Moderate UE Dressing Assistance: Moderate LE Dressing Assistance: Maximal Toileting Assistance with Device: Maximal Activity Tolerance: Endurance: Tolerates 10 - 20 min exercise with multiple rests Balance: Dynamic Sitting Balance Dynamic Sitting-Balance Support: Feet supported Dynamic Sitting-Level of Assistance: Distant supervision Dynamic Standing Balance Dynamic Standing-Balance Support: Left upper extremity supported Dynamic Standing-Level of Assistance: Minimum assistance (x2) Bed Mobility/Transfers: Bed Mobility/Transfers: Bed Mobility Bed Mobility: Yes Bed Mobility 1 Bed Mobility 1: Supine to sitting Level of Assistance 1: Minimum assistance Functional Mobility Functional Mobility Performed: Yes Functional Mobility 1 Surface 1: Level tile Device 1: Large base quad cane Assistance 1: Minimum assistance (x2) Comments 1: Assist for sequencing, balance and line management and Transfer 1 Transfer From 1: Sit to Transfer to 1: Stand Technique 1: Sit to stand, Stand to sit Transfer Device 1: Quad cane Transfer Level of Assistance 1: Minimum assistance, Minimal verbal cues (Min A from PUBLIC ADDRESS ANNOUNCER, CGA from OT) Trials/Comments 1: verbal cues for sequencing Transfers 2 Transfer From 2: Stand to Transfer to 2: Sit Transfer Device 2: Cane Transfer Level of Assistance 2: Moderate assistance (Mod A from PUBLIC ADDRESS ANNOUNCER, CGA from OT) Trials/Comments 2: verbal cues for sequencing and assist for safe decent to chair and line management IADL's: Current License: Yes Mode of Transportation: Car Sensation: Sensation Comment: No apparent deficits Perception: Inattention/Neglect: Appears intact Initiation: Appears intact Motor Planning: Appears intact Perseveration: Not present Coordination: Movements are Fluid and Coordinated: No Upper Body Coordination: RUE impaired Lower Body Coordination: RLE impaired Hand Function: Hand Function Gross Grasp: Impaired (RUE impaired) Coordination: Impaired (Impaired) Extremities: RUE RUE : Exceptions to WFL (minimal AROM (~2/5 grossly); increased tone w/ MAS 2/4), LUE LUE: Within Functional Limits Outcome Measures: [facility] Daily Activity Putting on and taking off regular lower body clothing: A lot Bathing (including washing, rinsing, drying): A lot Putting on and taking off regular upper body clothing: A lot Toileting, which includes using toilet, bedpan or urinal: A lot Taking care of personal grooming such as brushing teeth: A little Eating Meals: A little Daily Activity - Total Score: 14 , OT Adult Other Outcome Measures 4AT: 0 Education Documentation Body Mechanics, taught by Brielle Atwood OT at 09/29/2024 1:16 PM. Learner: Patient Readiness: Acceptance Method: Explanation Response: Verbalizes Understanding Precautions, taught by Brielle Atwood OT at 09/29/2024 1:16 PM. Learner: Patient Readiness: Acceptance Method: Explanation Response: Verbalizes Understanding ADL Training, taught by Brielle Atwood OT at 09/29/2024 1:16 PM. Learner: Patient Readiness: Acceptance Method: Explanation Response: Verbalizes Understanding Education Comments No comments found. Goals: Encounter Problems Encounter Problems (Active) ADLs Patient with complete upper body dressing with minimal assist level of assistance donning and doffing all UE clothes with PRN adaptive equipment while edge of bed Start: 09/29/24 Expected End: 10/13/24 Patient with complete lower body dressing with moderate assist level of assistance donning and doffing all LE clothes with PRN adaptive equipment while edge of bed Start: 09/29/24 Expected End: 10/13/24 Patient will feed self with set-up level of assistance using PRN adaptive equipment. Start: 09/29/24 Expected End: 10/13/24 Patient will complete daily grooming tasks brushing teeth and washing face/hair with set-up level of assistance and PRN adaptive equipment while edge of bed . Start: 09/29/24 Expected End: 10/13/24 Patient will complete toileting including hygiene clothing management/hygiene with minimal assist level of assistance and raised toilet seat. Start: 09/29/24 Expected End: 10/13/24 COGNITION/SAFETY Patient will recall and adhere to MITT precautions during all functional mobility/ADL tasks in order to demonstrate improved understanding and promote healing post op Start: 09/29/24 Expected End: 10/13/24 MOBILITY Patient will perform Functional mobility mod Household distances/Community Distances with contact guard assist level of assistance and least restrictive device in order to improve safety and functional mobility. Start: 09/29/24 Expected End: 10/13/24 SPLINTING Patient will shawna/doff RUE WHFO splint with stand by assist level of assistance. Start: 09/29/24 Expected End: 10/13/24 TRANSFERS Patient will perform bed mobility stand by assist level of assistance and bed rails in order to improve safety and independence with mobility Start: 09/29/24 Expected End: 10/13/24 Patient will complete functional transfer to toilet/chair with least restrictive device with minimal assist level of assistance. Start: 09/29/24 Expected End: 10/13/24 Treatment Completed on Evaluation Activities of Daily Living: LE Dressing LE Dressing: Yes Adult Briefs Level of Assistance: Maximum assistance LE Dressing Where Assessed: Edge of bed LE Dressing Comments: Assist w/ all aspects, however pt able to lift legs to assist in threading BLE Splinting: Splinting Location: RUE Type: WHFO/built up palm protector Splinting Education: Fitting, Wear schedule, Precautions Splinting Comments: Pt provided w/ WHFO to provide support and appropriate positioning of RUE d/t increasing tone and pt's report of discomfort d/t lack of support and postioning. Pt demos good postioning in WHFO, EDU provided on wear schedule and need for skin checks. Additionally pt provided w/ built up palm protector to use at night, or when in need of a break from WHFO. Pt and RN verbalize understanding of orthotic devices. 09/29/24 at 1:18 PM BRIELLE ATWOOD OT Rehab Office: [phone] Physical Therapy Treatment Patient Name: Cisco DOHERTYN: [id number] Today's Date: 09/29/2024 Room: [address] [place] [address] Time Calculation Start Time: 929 Stop Time: 1024 Time Calculation (min): 55 min Assessment/Plan PT Assessment PT Assessment Results: Decreased strength, Decreased endurance, Impaired balance, Decreased mobility, Decreased coordination Rehab Prognosis: Good Evaluation/Treatment Tolerance: Patient tolerated treatment well Medical Staff Made Aware: Yes Strengths: Coping skills, Attitude of self, Ability to acquire knowledge, Rehab experience Barriers to Participation: Comorbidities, Support of Caregivers End of Session Communication: Bedside nurse End of Session Patient Position: Up in chair, Alarm off, not on at start of session PT Plan Treatment/Interventions: Bed mobility, Transfer training, Gait training, Balance training, Strengthening, Endurance training, Therapeutic exercise, Therapeutic activity PT Plan: Ongoing PT PT Frequency: 5 times per week PT Discharge Recommendations: Moderate intensity level of continued care PT Recommended Transfer Status: Assist x1, Assistive device PT - OK to Discharge: Yes Assessment: Patient is progressing Well with therapy this date. Pt highly motivated, min-modA for OOB mobility. Would continue to benefit from continued skilled PT to address all mobility deficits; Patient remains appropriate for MOD intensity therapy when medically appropriate for discharge from acute stay. Will continue to follow. General Visit Information: PT Visit PT Received On: 09/29/24 Co-Treatment: OT (partial tx ~20min) Co-Treatment Reason: to maximize pt safety and therapeutic potential Prior to Session Communication: Bedside nurse Patient Position Received: Bed, 3 rail up, Alarm off, not on at start of session Subjective Subjective: Pt pleasant and agreeable to therapy upon approach Precautions: Precautions Medical Precautions: Cardiac precautions, Fall precautions, Oxygen therapy device and L/min, Chest tube (4L) Post-Surgical Precautions: Move in the Tube Precautions Comment: R julian Vital Signs: Vital Signs (Past 2hrs) Date/Time Vitals Session Patient Position Pulse Resp SpO2 BP MAP (mmHg) 09/29/24 0930 During PT -- -- -- 94 % -- -- 09/29/24 0936 -- -- -- 18 90 % 103/69 80 09/29/24 0956 -- -- -- -- 94 % -- -- Objective Pain: Pain Assessment Pain Assessment: 0-10 0-10 (Numeric) Pain Score: 6 Pain Type: Surgical pain Pain Location: Sternum Pain Frequency: Constant/continuous Pain Interventions: Medication (See MAR), Repositioned Cognition: Cognition Overall Cognitive Status: Within Functional Limits Orientation Level: Oriented X4 Insight: Within function limits Impulsive: Within functional limits Static Sitting balance: Static Sitting Balance Static Sitting-Balance Support: Feet supported, Bilateral upper extremity supported Static Sitting-Level of Assistance: Close supervision Static Sitting-Comment/Number of Minutes: ~18min total Lines/Tubes/Drains: Chest Tube 1 Other (Comment) Pleural (Active) Number of days: 1 Chest Tube 2 Mediastinal (Active) Number of days: 1 PT Treatments: Therapeutic Exercise Therapeutic Exercise Performed: Yes Therapeutic Exercise Activity 1: 10 seated LAQ with RLE, 10x BLE ankle pumps Therapeutic Activity Therapeutic Activity Performed: Yes Therapeutic Activity 1: Increased time required for skilled line management. Rapid response nurse present during tx (rounding) to assess pt's vitals. Pt demos very shallow breathing d/t chest pain and chest tube discomfort. Instructed to use IS and deep breathing during tx. Pt also had bouts of nausea, however nothing of note was expelled. Pt could benefit significantly from higher therapy frequency d/t recent stroke and good therapeutic potential, conversed with PT who is in agreement. Therapeutic Activity 2: 5x standing marches lifting LLE, modA d/t LOB with quad cane Bed Mobility 1 Bed Mobility 1: Rolling right, Rolling left Level of Assistance 1: Minimum assistance Bed Mobility Comments 1: use of bed rail Bed Mobility 2 Bed Mobility 2: Supine to sitting Level of Assistance 2: Minimum assistance, Moderate verbal cues Bed Mobility Comments 2: vc for log roll, increased difficulty with julian side Ambulation/Gait Training 1 Surface 1: Level tile Device 1: Small base quad cane Assistance 1: Minimum assistance, Moderate assistance, Moderate verbal cues Quality of Gait 1: Decreased step length, Shuffling gait, Soft knee(s), Narrow base of support Comments/Distance (ft) 1: Pt able to take 3-4 steps over to recliner with quad cane. Assist varying d/t instability with RLE and balance. Vc for sequencing with cane Transfer 1 Transfer From 1: Sit to Transfer to 1: Stand Transfer Device 1: Cane Transfer Level of Assistance 1: Minimum assistance, Minimal verbal cues Trials/Comments 1: vc for body mechanics Transfers 2 Transfer From 2: Stand to Transfer to 2: Sit Transfer Device 2: Cane Transfer Level of Assistance 2: Moderate assistance Trials/Comments 2: Poor eccentric control requiring modA to safely control sitting Activity tolerance: Activity Tolerance Endurance: Tolerates 10 - 20 min exercise with multiple rests Outcome Measures: [facility] Basic Mobility Turning from your back to your side while in a flat bed without using bedrails: A little Moving from lying on your back to sitting on the side of a flat bed without using bedrails: A little Moving to and from bed to chair (including a wheelchair): A lot Standing up from a chair using your arms (e.g. wheelchair or bedside chair): A little To walk in hospital room: A lot Climbing 3-5 steps with railing: Total Basic Mobility - Total Score: 14 Education Documentation Handouts, taught by Smita Mix PTA at 09/29/2024 10:50 AM. Learner: Patient Readiness: Acceptance Method: Explanation Response: Verbalizes Understanding Comment: POC Speech/Language, taught by Smita Mix PTA at 09/29/2024 10:50 AM. Learner: Patient Readiness: Acceptance Method: Explanation Response: Verbalizes Understanding Comment: POC Modified Diet Training, taught by Smita Mix PTA at 09/29/2024 10:50 AM. Learner: Patient Readiness: Acceptance Method: Explanation Response: Verbalizes Understanding Comment: POC Body Mechanics, taught by Smita Mix PTA at 09/29/2024 10:50 AM. Learner: Patient Readiness: Acceptance Method: Explanation Response: Verbalizes Understanding Comment: POC Precautions, taught by Smita Mix PTA at 09/29/2024 10:50 AM. Learner: Patient Readiness: Acceptance Method: Explanation Response: Verbalizes Understanding Comment: POC ADL Training, taught by Smita Mix PTA at 09/29/2024 10:50 AM. Learner: Patient Readiness: Acceptance Method: Explanation Response: Verbalizes Understanding Comment: POC Handouts, taught by Smita Mix PTA at 09/29/2024 10:50 AM. Learner: Patient Readiness: Acceptance Method: Explanation Response: Verbalizes Understanding Comment: POC Precautions, taught by Smita Mix PTA at 09/29/2024 10:50 AM. Learner: Patient Readiness: Acceptance Method: Explanation Response: Verbalizes Understanding Comment: POC Body Mechanics, taught by Smita Mix PTA at 09/29/2024 10:50 AM. Learner: Patient Readiness: Acceptance Method: Explanation Response: Verbalizes Understanding Comment: POC Mobility Training, taught by Smita Mix PTA at 09/29/2024 10:50 AM. Learner: Patient Readiness: Acceptance Method: Explanation Response: Verbalizes Understanding Comment: POC Education Comments No comments found. OP EDUCATION: Encounter Problems Encounter Problems (Active) Balance Pt will demonstrate ability to complete standing static/dynamic balance activities with unilateral UE support and no LOB for increase in safety up D/C. (Progressing) Start: 09/28/24 Expected End: 10/12/24 Mobility Pt will demonstrated ability to ambulate >/=50ft with proper form, CGA, LRAD and no balance deficits for safe DC. (Progressing) Start: 09/28/24 Expected End: 10/12/24 Pt will be able to tolerate >15 minutes of standing activity continuously without seated rest break with stable vitals and RPD </=3/10 and RPE </=13/20 for improved functional mobility (Progressing) Start: 09/28/24 Expected End: 10/12/24 PT Transfers Pt will demonstrated ability to complete bed mobility and sit<>stand transfers without assistance and use of assistive device to safely DC. (Progressing) Start: 09/28/24 Expected End: 10/12/24 Cosigned by Luciano Day PT at 10/02/2024 8:52 AM EST Pharmacy Medication History Review Cisco Saini is a 68 y.o. male admitted for Coronary artery disease involving [place] coronary artery of [place] heart. Pharmacy reviewed the patient's csiyh-[id number] medications and allergies for accuracy. Medications ADDED: N/A Medications CHANGED: Nystatin powder: apply to groin topically every 12 hours as needed for redness/rash Medications REMOVED: N/A The list below reflects the updated PUBLIC ADDRESS ANNOUNCER list. Prior to Admission Medications Prescriptions Last Dose Informant acetaminophen (Tylenol) 325 mg tablet 09/26/2024 Other Sig: Take 2 tablets (650 mg) by mouth every 4 hours if needed for mild pain (1 - 3) or fever (temp greater than 38.0 C). aspirin 81 mg chewable tablet 09/26/2024 Other Sig: Chew 1 tablet (81 mg) once daily. atorvastatin (Lipitor) 40 mg tablet Sig: Take 1 tablet (40 mg) by mouth once daily at bedtime. bisacodyl (Dulcolax, bisacodyl,) 10 mg suppository 09/26/2024 Other Sig: Insert 1 suppository (10 mg) into the rectum once daily as needed for constipation. chlorhexidine (Hibiclens) 4 % external liquid Sig: Apply 1 Application topically 2 times a day for 5 days. Use per CPM/PAT provided instructions chlorhexidine (Peridex) 0.12 % solution Sig: Use 15 mL in the mouth or throat if needed for wound care for up to 2 days. Swish and spit the night before and morning of surgery. clopidogrel (Plavix) 75 mg tablet Past Week Other Sig: Take 1 tablet (75 mg) by mouth once daily. gabapentin (Neurontin) 100 mg capsule 09/26/2024 Other Sig: Take 2 capsules (200 mg) by mouth 2 times a day. lisinopril 5 mg tablet Past Month Other Sig: Take 1 tablet (5 mg) by mouth once daily. magnesium hydroxide (Milk Of Magnesia Concentrated) 2,400 mg/10 mL suspension suspension Past Week Other Sig: Take 30 mL by mouth every 6 hours if needed for constipation. metoprolol succinate XL (Toprol-XL) 25 mg 24 hr tablet Sig: Take 1 tablet (25 mg) by mouth once daily. Do not crush or chew. nitroglycerin (Nitrodur) 0.1 mg/hr patch 09/27/2024 Morning Other Sig: Place 1 patch on the skin once daily. nystatin (Mycostatin) 100,000 unit/gram powder 09/26/2024 Other Sig: Apply 1 Application topically 2 times a day as needed for rash. oxymetazoline (Afrin) 0.05 % nasal spray Sig: Administer 2 sprays into each nostril every 12 hours if needed for congestion for up to 3 days. Do not use for more than 3 days. sennosides-docusate sodium (Senna Plus) 8.6-50 mg tablet 09/26/2024 Other Sig: Take 2 tablets by mouth every 12 hours if needed for constipation. sertraline (Zoloft) 50 mg tablet 09/26/2024 Other Sig: Take 1 tablet (50 mg) by mouth once daily. Facility-Administered Medications: None The list below reflects the updated allergy list. Please review each documented allergy for additional clarification and justification. Allergies Reviewed by Deepthi Banegas RN on 09/27/2024 No Known Allergies Patient declines M2B at discharge. Sources [facility] Additional Comments Clopidogrel and lisinopril were not on medication profile from [facility], however confirmed with nurse from [facility] they were active prior to admission and held in anticipation of procedure Cody Euceda PharmD Transitions of Care Pharmacist [facility] Please reach out via Secure Chat for questions, or if no response call [employer] or [employer] Physical Therapy Physical Therapy Evaluation Patient Name: Cisco Saini Department: [place] [id number] Room: [address] [place] [address] Today's Date: 09/28/2024 Time Calculation Start Time: 906 Stop Time: 928 Time Calculation (min): 22 min Assessment/Plan PT Assessment PT Assessment Results: Decreased strength, Decreased endurance, Impaired balance, Decreased mobility Rehab Prognosis: Good Barriers to Discharge: None Evaluation/Treatment Tolerance: Patient tolerated treatment well Medical Staff Made Aware: Yes End of Session Communication: Bedside nurse Assessment Comment: Pt demonstrated ability to complete bed mobility, sit<>stand transfer and bed>WC transfer. Min-modAx1 provided for all functional mobility. Vitals stable. Falls risk post stroke. End of Session Patient Position: Up in chair, Alarm off, not on at start of session IP OR SWING BED PT PLAN Inpatient or Swing Bed: Inpatient PT Plan Treatment/Interventions: Bed mobility, Transfer training, Gait training, Balance training, Strengthening, Endurance training, Therapeutic exercise, Therapeutic activity PT Plan: Ongoing PT PT Frequency: 3 times per week PT Discharge Recommendations: Moderate intensity level of continued care PT Recommended Transfer Status: Assist x1, Assistive device PT - OK to Discharge: Yes Subjective General Visit Information: General Reason for Referral: CABGx3 and PFO repair Referred By: Dr. Atkins Past Medical History Relevant to Rehab: HTN, HLD, CAD, depression, recent left lacunar infarct with right hemiplegia. y Missed Visit: No Family/Caregiver Present: No Prior to Session Communication: Bedside nurse Patient Position Received: Bed, 3 rail up, Alarm off, not on at start of session Preferred Learning Style: auditory, verbal, visual, written General Comment: Pt awake, alert and willing to participate in PT session. (RN moving central line and vitale prior to OOB mobility d/t transferring to T3) Home Living: Home Living Home Living Comments: Has been staying at a facility since June d/t recent stroke. Assistance provided from staff. Prior Level of Function: Prior Function Per Pt/Caregiver Report Prior Function Comments: Pt reported that he is able to walk ~400ft with a julian walker however utilized WC more frequently. Pt reported being able to transfer OOB and into chair without assistance. Assistance with all ADLs/iADLs from staff. Precautions: Precautions Hearing/Visual Limitations: Appears WFL Medical Precautions: Cardiac precautions, Fall precautions, Oxygen therapy device and L/min, Chest tube Post-Surgical Precautions: Move in the Tube Precautions Comment: SBP >120, SpO2 >92%, VVI @ 60 09/28/24 0907 09/28/24 0929 Vital Signs Vitals Session Pre PT Post PT Heart Rate 103 99 Resp 21 15 SpO2 100 % 100 % BP (!) 140/99 123/86 MAP (mmHg) 112 99 BP Method Automatic Automatic Patient Position Lying Sitting Vital Signs Comment -- Vitals stable with mobility Objective Pain: Pain Assessment Pain Assessment: 0-10 0-10 (Numeric) Pain Score: 0 - No pain Cognition: Cognition Overall Cognitive Status: Within Functional Limits Orientation Level: Oriented X4 General Assessments: General Observation General Observation: Tele, 5L, vitale Activity Tolerance Endurance: Tolerates less than 10 min exercise, no significant change in vital signs Early Mobility/Exercise Safety Screen: Proceed with mobilization - No exclusion criteria met Activity Tolerance Comments: Limited mobility d/t nausea Sensation Light Touch: (No deficits post-op) Strength Strength Comments: RLE weakness d/t recent stroke however muscle activation noted. LLE: WFL Coordination Movements are Fluid and Coordinated: Yes (With LUE) Postural Control Postural Control: Within Functional Limits Static Sitting Balance Static Sitting-Balance Support: Bilateral upper extremity supported, Feet supported Static Sitting-Level of Assistance: Contact guard Static Standing Balance Static Standing-Balance Support: Left upper extremity supported Static Standing-Level of Assistance: Minimum assistance (x1) Static Standing-Comment/Number of Minutes: Posterior instability, narrow MARNIE. Increased weight through LLE d/t RLE weakness Functional Assessments: ADL ADL's Addressed: No Bed Mobility Bed Mobility: Yes Bed Mobility 1 Bed Mobility 1: Supine to sitting Level of Assistance 1: Minimum assistance Bed Mobility Comments 1: HOB elevated, cues for sequencing. Assistance with advancing trunk upright. Transfers Transfer: Yes Transfer 1 Transfer From 1: Sit to, Stand to Transfer to 1: Sit, Stand Technique 1: Sit to stand, Stand to sit Transfer Level of Assistance 1: Minimum assistance (x1) Trials/Comments 1: Cues for hand placement Transfers 2 Transfer From 2: Bed to Transfer to 2: Wheelchair Technique 2: Squat pivot, To right Transfer Level of Assistance 2: Moderate assistance (x1) Trials/Comments 2: Posterior instability noted during completion of transfer. Narrow MARNIE. Ambulation/Gait Training Ambulation/Gait Training Performed: (Unable to complete this date d/t nausea. Only transferred to .) Stairs Stairs: No Extremity/Trunk Assessments: RLE RLE : (ROM WFL) LLE LLE : (ROM WFL) Outcome Measures: [facility] Basic Mobility Turning from your back to your side while in a flat bed without using bedrails: A little Moving from lying on your back to sitting on the side of a flat bed without using bedrails: A little Moving to and from bed to chair (including a wheelchair): A lot Standing up from a chair using your arms (e.g. wheelchair or bedside chair): A little To walk in hospital room: A lot Climbing 3-5 steps with railing: Total Basic Mobility - Total Score: 14 FSS-ICU Ambulation: Unable to attempt due to weakness Rolling: Minimal assistance (performs 75% or more of task) Sitting: Supervision or set-up only Transfer [id number]-kp-[id number]: Minimal assistance (performs 75% or more of task) Transfer Retqow-el-Nax: Minimal assistance (performs 75% or more of task) Total Score: 17 Early Mobility/Exercise Safety Screen: Proceed with mobilization - No exclusion criteria met Encounter Problems Encounter Problems (Active) Balance Pt will demonstrate ability to complete standing static/dynamic balance activities with unilateral UE support and no LOB for increase in safety up D/C. (Progressing) Start: 09/28/24 Expected End: 10/12/24 Mobility Pt will demonstrated ability to ambulate >/=50ft with proper form, CGA, LRAD and no balance deficits for safe DC. (Progressing) Start: 09/28/24 Expected End: 10/12/24 Pt will be able to tolerate >15 minutes of standing activity continuously without seated rest break with stable vitals and RPD </=3/10 and RPE </=13/20 for improved functional mobility (Progressing) Start: 09/28/24 Expected End: 10/12/24 PT Transfers Pt will demonstrated ability to complete bed mobility and sit<>stand transfers without assistance and use of assistive device to safely DC. (Progressing) Start: 09/28/24 Expected End: 10/12/24 Education Documentation Handouts, taught by Lupe Chiu PT at 09/28/2024 12:15 PM. Learner: Patient Readiness: Acceptance Method: Explanation, Demonstration, Handout Response: Needs Reinforcement Comment: MITT handout provided and reviewed Precautions, taught by Luep Chiu PT at 09/28/2024 12:15 PM. Learner: Patient Readiness: Acceptance Method: Explanation, Demonstration, Handout Response: Needs Reinforcement Comment: MITT handout provided and reviewed Body Mechanics, taught by Lupe hCiu PT at 09/28/2024 12:15 PM. Learner: Patient Readiness: Acceptance Method: Explanation, Demonstration, Handout Response: Needs Reinforcement Comment: MITT handout provided and reviewed Mobility Training, taught by Lupe Chiu PT at 09/28/2024 12:15 PM. Learner: Patient Readiness: Acceptance Method: Explanation, Demonstration, Handout Response: Needs Reinforcement Comment: MITT handout provided and reviewed Education Comments No comments found. Postop Pain HPI - Palliative: relieved with IV analgesics and regional local anesthetics Provocative: movement Quality: burning and aching Radiation: none Severity: 2/10 Timing: constant 24-HOUR OPIOID CONSUMPTION: Oxycodone 30 mg Dilaudid 0.2 mg Scheduled medications acetaminophen, 650 mg, oral, q6h aspirin, 81 mg, oral, Daily atorvastatin, 80 mg, oral, Nightly ceFAZolin, 2 g, intravenous, q8h [Held by provider] clopidogrel, 75 mg, oral, Daily [Held by provider] gabapentin, 200 mg, oral, BID insulin lispro, 0-15 Units, subcutaneous, q4h polyethylene glycol, 17 g, oral, BID sennosides-docusate sodium, 2 tablet, oral, BID [Held by provider] sertraline, 50 mg, oral, Daily Continuous medications lactated Ringer's, 30 mL/hr lactated Ringer's, 5 mL/hr, Last Rate: 5 mL/hr (09/28/24 0700) norepinephrine, 0-0.5 mcg/kg/min (Dosing Weight), Last Rate: Stopped (09/27/241640) propofol, 0-50 mcg/kg/min (Dosing Weight), Last Rate: Stopped (09/27/241640) PRN medications PRN medications: calcium gluconate, calcium gluconate, hydrALAZINE, HYDROmorphone, magnesium sulfate, magnesium sulfate, naloxone, ondansetron OR ondansetron, oxyCODONE, oxyCODONE, potassium chloride CR OR potassium chloride, potassium chloride CR OR potassium chloride, potassium chloride, potassium chloride Physical Exam: Constitutional: no distress, alert and cooperative Eyes: clear sclera Head/Neck: No apparent injury, trachea midline Respiratory/Thorax: Patent airways, thorax symmetric, breathing comfortably Cardiovascular: no pitting edema Gastrointestinal: Nondistended Musculoskeletal: ROM intact Extremities: no clubbing Neurological: alert, lovell x4 Psychological: Appropriate affect Results for orders placed or performed during the hospital encounter of 09/27/24 (from the past 24 hours) Blood Gas Arterial Full Panel Unsolicited Result Value Ref Range POCT pH, Arterial 7.36 (L) 7.38 - 7.42 pH POCT pCO2, Arterial 50 (H) 38 - 42 mm Hg POCT pO2, Arterial 264 (H) 85 - 95 mm Hg POCT SO2, Arterial 100 94 - 100 % POCT Oxy Hemoglobin, Arterial 97.8 94.0 - 98.0 % POCT Hematocrit Calculated, Arterial 40.0 (L) 41.0 - 52.0 % POCT Sodium, Arterial 134 (L) 136 - 145 mmol/L POCT Potassium, Arterial 5.1 3.5 - 5.3 mmol/L POCT Chloride, Arterial 103 98 - 107 mmol/L POCT Ionized Calcium, Arterial 1.18 1.10 - 1.33 mmol/L POCT Glucose, Arterial 114 (H) 74 - 99 mg/dL POCT Lactate, Arterial 0.8 0.4 - 2.0 mmol/L POCT Base Excess, Arterial 1.9 -2.0 - 3.0 mmol/L POCT HCO3 Calculated, Arterial 28.2 (H) 22.0 - 26.0 mmol/L POCT Hemoglobin, Arterial 13.4 (L) 13.5 - 17.5 g/dL POCT Anion Gap, Arterial 8 (L) 10 - 25 mmo/L Patient Temperature 37.0 degrees Celsius FiO2 100 % Coox Panel, Arterial Unsolicited Result Value Ref Range POCT Hemoglobin, Arterial 13.4 (L) 13.5 - 17.5 g/dL POCT Oxy Hemoglobin, Arterial 97.8 94.0 - 98.0 % POCT Carboxyhemoglobin, Arterial 0.7 % POCT Methemoglobin, Arterial 1.0 0.0 - 1.5 % POCT Deoxy Hemoglobin, Arterial 0.5 0.0 - 5.0 % Blood Gas Arterial Full Panel Unsolicited Result Value Ref Range POCT pH, Arterial 7.39 7.38 - 7.42 pH POCT pCO2, Arterial 42 38 - 42 mm Hg POCT pO2, Arterial 175 (H) 85 - 95 mm Hg POCT SO2, Arterial 99 94 - 100 % POCT Oxy Hemoglobin, Arterial 98.1 (H) 94.0 - 98.0 % POCT Hematocrit Calculated, Arterial 41.0 41.0 - 52.0 % POCT Sodium, Arterial 133 (L) 136 - 145 mmol/L POCT Potassium, Arterial 5.5 (H) 3.5 - 5.3 mmol/L POCT Chloride, Arterial 103 98 - 107 mmol/L POCT Ionized Calcium, Arterial 1.14 1.10 - 1.33 mmol/L POCT Glucose, Arterial 130 (H) 74 - 99 mg/dL POCT Lactate, Arterial 0.9 0.4 - 2.0 mmol/L POCT Base Excess, Arterial 0.3 -2.0 - 3.0 mmol/L POCT HCO3 Calculated, Arterial 25.4 22.0 - 26.0 mmol/L POCT Hemoglobin, Arterial 13.5 13.5 - 17.5 g/dL POCT Anion Gap, Arterial 10 10 - 25 mmo/L Patient Temperature 37.0 degrees Celsius FiO2 100 % Blood Gas Arterial Full Panel Unsolicited Result Value Ref Range POCT pH, Arterial 7.38 7.38 - 7.42 pH POCT pCO2, Arterial 42 38 - 42 mm Hg POCT pO2, Arterial 356 (H) 85 - 95 mm Hg POCT SO2, Arterial 99 94 - 100 % POCT Oxy Hemoglobin, Arterial 98.1 (H) 94.0 - 98.0 % POCT Hematocrit Calculated, Arterial 39.0 (L) 41.0 - 52.0 % POCT Sodium, Arterial 133 (L) 136 - 145 mmol/L POCT Potassium, Arterial 5.3 3.5 - 5.3 mmol/L POCT Chloride, Arterial 103 98 - 107 mmol/L POCT Ionized Calcium, Arterial 1.09 (L) 1.10 - 1.33 mmol/L POCT Glucose, Arterial 137 (H) 74 - 99 mg/dL POCT Lactate, Arterial 1.3 0.4 - 2.0 mmol/L POCT Base Excess, Arterial -0.4 -2.0 - 3.0 mmol/L POCT HCO3 Calculated, Arterial 24.8 22.0 - 26.0 mmol/L POCT Hemoglobin, Arterial 13.1 (L) 13.5 - 17.5 g/dL POCT Anion Gap, Arterial 11 10 - 25 mmo/L Patient Temperature 37.0 degrees Celsius FiO2 100 % Coox Panel, Arterial Unsolicited Result Value Ref Range POCT Hemoglobin, Arterial 13.1 (L) 13.5 - 17.5 g/dL POCT Oxy Hemoglobin, Arterial 98.1 (H) 94.0 - 98.0 % POCT Carboxyhemoglobin, Arterial 0.4 % POCT Methemoglobin, Arterial 0.9 0.0 - 1.5 % POCT Deoxy Hemoglobin, Arterial 0.6 0.0 - 5.0 % Blood Gas Arterial Full Panel Unsolicited Result Value Ref Range POCT pH, Arterial 7.33 (L) 7.38 - 7.42 pH POCT pCO2, Arterial 45 (H) 38 - 42 mm Hg POCT pO2, Arterial 433 (H) 85 - 95 mm Hg POCT SO2, Arterial 100 94 - 100 % POCT Oxy Hemoglobin, Arterial 98.6 (H) 94.0 - 98.0 % POCT Hematocrit Calculated, Arterial 38.0 (L) 41.0 - 52.0 % POCT Sodium, Arterial 134 (L) 136 - 145 mmol/L POCT Potassium, Arterial 5.4 (H) 3.5 - 5.3 mmol/L POCT Chloride, Arterial 102 98 - 107 mmol/L POCT Ionized Calcium, Arterial 1.26 1.10 - 1.33 mmol/L POCT Glucose, Arterial 160 (H) 74 - 99 mg/dL POCT Lactate, Arterial 1.5 0.4 - 2.0 mmol/L POCT Base Excess, Arterial -2.4 (L) -2.0 - 3.0 mmol/L POCT HCO3 Calculated, Arterial 23.7 22.0 - 26.0 mmol/L POCT Hemoglobin, Arterial 12.6 (L) 13.5 - 17.5 g/dL POCT Anion Gap, Arterial 14 10 - 25 mmo/L Patient Temperature 37.0 degrees Celsius FiO2 100 % Blood Gas Arterial Full Panel Unsolicited Result Value Ref Range POCT pH, Arterial 7.29 (L) 7.38 - 7.42 pH POCT pCO2, Arterial 50 (H) 38 - 42 mm Hg POCT pO2, Arterial 372 (H) 85 - 95 mm Hg POCT SO2, Arterial 100 94 - 100 % POCT Oxy Hemoglobin, Arterial 98.4 (H) 94.0 - 98.0 % POCT Hematocrit Calculated, Arterial 36.0 (L) 41.0 - 52.0 % POCT Sodium, Arterial 136 136 - 145 mmol/L POCT Potassium, Arterial 4.3 3.5 - 5.3 mmol/L POCT Chloride, Arterial 102 98 - 107 mmol/L POCT Ionized Calcium, Arterial 1.23 1.10 - 1.33 mmol/L POCT Glucose, Arterial 183 (H) 74 - 99 mg/dL POCT Lactate, Arterial 1.7 0.4 - 2.0 mmol/L POCT Base Excess, Arterial -2.9 (L) -2.0 - 3.0 mmol/L POCT HCO3 Calculated, Arterial 24.0 22.0 - 26.0 mmol/L POCT Hemoglobin, Arterial 12.1 (L) 13.5 - 17.5 g/dL POCT Anion Gap, Arterial 14 10 - 25 mmo/L Patient Temperature 37.0 degrees Celsius FiO2 100 % Coox Panel, Arterial Unsolicited Result Value Ref Range POCT Hemoglobin, Arterial 12.1 (L) 13.5 - 17.5 g/dL POCT Oxy Hemoglobin, Arterial 98.4 (H) 94.0 - 98.0 % POCT Carboxyhemoglobin, Arterial 0.4 % POCT Methemoglobin, Arterial 0.9 0.0 - 1.5 % POCT Deoxy Hemoglobin, Arterial 0.4 0.0 - 5.0 % Calcium, Ionized Result Value Ref Range POCT Calcium, Ionized 1.11 1.1 - 1.33 mmol/L Magnesium Result Value Ref Range Magnesium 2.43 (H) 1.60 - 2.40 mg/dL Coagulation Screen Result Value Ref Range Protime 12.8 9.8 - 12.8 seconds INR 1.1 0.9 - 1.1 aPTT 32 27 - 38 seconds Fibrinogen Result Value Ref Range Fibrinogen 436 (H) 200 - 400 mg/dL CBC Result Value Ref Range WBC 14.2 (H) 4.4 - 11.3 x10*3/uL nRBC 0.0 0.0 - 0.0 /100 WBCs RBC 3.82 (L) 4.50 - 5.90 x10*6/uL Hemoglobin 11.6 (L) 13.5 - 17.5 g/dL Hematocrit 34.7 (L) 41.0 - 52.0 % MCV 91 80 - 100 fL MCH 30.4 26.0 - 34.0 pg MCHC 33.4 32.0 - 36.0 g/dL RDW 12.2 11.5 - 14.5 % Platelets 304 150 - 450 x10*3/uL Renal Function Panel Result Value Ref Range Glucose 189 (H) 74 - 99 mg/dL Sodium 137 136 - 145 mmol/L Potassium 4.2 3.5 - 5.3 mmol/L Chloride 101 98 - 107 mmol/L Bicarbonate 22 21 - 32 mmol/L Anion Gap 18 10 - 20 mmol/L Urea Nitrogen 15 6 - 23 mg/dL Creatinine 0.96 0.50 - 1.30 mg/dL eGFR 86 >60 mL/min/1.73m*2 Calcium 8.4 (L) 8.6 - 10.6 mg/dL Phosphorus 4.1 2.5 - 4.9 mg/dL Albumin 3.7 3.4 - 5.0 g/dL Blood Gas Arterial Full Panel Result Value Ref Range POCT pH, Arterial 7.43 (H) 7.38 - 7.42 pH POCT pCO2, Arterial 34 (L) 38 - 42 mm Hg POCT pO2, Arterial 167 (H) 85 - 95 mm Hg POCT SO2, Arterial 100 94 - 100 % POCT Oxy Hemoglobin, Arterial 97.4 94.0 - 98.0 % POCT Hematocrit Calculated, Arterial 37.0 (L) 41.0 - 52.0 % POCT Sodium, Arterial 134 (L) 136 - 145 mmol/L POCT Potassium, Arterial 4.3 3.5 - 5.3 mmol/L POCT Chloride, Arterial 103 98 - 107 mmol/L POCT Ionized Calcium, Arterial 1.10 1.10 - 1.33 mmol/L POCT Glucose, Arterial 183 (H) 74 - 99 mg/dL POCT Lactate, Arterial 1.6 0.4 - 2.0 mmol/L POCT Base Excess, Arterial -1.2 -2.0 - 3.0 mmol/L POCT HCO3 Calculated, Arterial 22.6 22.0 - 26.0 mmol/L POCT Hemoglobin, Arterial 12.3 (L) 13.5 - 17.5 g/dL POCT Anion Gap, Arterial 13 10 - 25 mmo/L Patient Temperature 37.0 degrees Celsius FiO2 50 % POCT GLUCOSE Result Value Ref Range POCT Glucose 170 (H) 74 - 99 mg/dL Blood Gas Arterial Full Panel Result Value Ref Range POCT pH, Arterial 7.38 7.38 - 7.42 pH POCT pCO2, Arterial 40 38 - 42 mm Hg POCT pO2, Arterial 87 85 - 95 mm Hg POCT SO2, Arterial 98 94 - 100 % POCT Oxy Hemoglobin, Arterial 95.9 94.0 - 98.0 % POCT Hematocrit Calculated, Arterial 38.0 (L) 41.0 - 52.0 % POCT Sodium, Arterial 133 (L) 136 - 145 mmol/L POCT Potassium, Arterial 4.6 3.5 - 5.3 mmol/L POCT Chloride, Arterial 102 98 - 107 mmol/L POCT Ionized Calcium, Arterial 1.15 1.10 - 1.33 mmol/L POCT Glucose, Arterial 178 (H) 74 - 99 mg/dL POCT Lactate, Arterial 1.4 0.4 - 2.0 mmol/L POCT Base Excess, Arterial -1.3 -2.0 - 3.0 mmol/L POCT HCO3 Calculated, Arterial 23.7 22.0 - 26.0 mmol/L POCT Hemoglobin, Arterial 12.5 (L) 13.5 - 17.5 g/dL POCT Anion Gap, Arterial 12 10 - 25 mmo/L Patient Temperature 37.0 degrees Celsius FiO2 40 % CBC Result Value Ref Range WBC 11.5 (H) 4.4 - 11.3 x10*3/uL nRBC 0.0 0.0 - 0.0 /100 WBCs RBC 3.48 (L) 4.50 - 5.90 x10*6/uL Hemoglobin 10.5 (L) 13.5 - 17.5 g/dL Hematocrit 31.5 (L) 41.0 - 52.0 % MCV 91 80 - 100 fL MCH 30.2 26.0 - 34.0 pg MCHC 33.3 32.0 - 36.0 g/dL RDW 12.2 11.5 - 14.5 % Platelets 250 150 - 450 x10*3/uL Renal function panel Result Value Ref Range Glucose 165 (H) 74 - 99 mg/dL Sodium 136 136 - 145 mmol/L Potassium 4.3 3.5 - 5.3 mmol/L Chloride 102 98 - 107 mmol/L Bicarbonate 26 21 - 32 mmol/L Anion Gap 12 10 - 20 mmol/L Urea Nitrogen 15 6 - 23 mg/dL Creatinine 0.81 0.50 - 1.30 mg/dL eGFR >90 >60 mL/min/1.73m*2 Calcium 8.2 (L) 8.6 - 10.6 mg/dL Phosphorus 3.8 2.5 - 4.9 mg/dL Albumin 3.8 3.4 - 5.0 g/dL Calcium, Ionized Result Value Ref Range POCT Calcium, Ionized 1.14 1.1 - 1.33 mmol/L Magnesium Result Value Ref Range Magnesium 2.20 1.60 - 2.40 mg/dL Blood Gas Arterial Full Panel Result Value Ref Range POCT pH, Arterial 7.37 (L) 7.38 - 7.42 pH POCT pCO2, Arterial 41 38 - 42 mm Hg POCT pO2, Arterial 79 (L) 85 - 95 mm Hg POCT SO2, Arterial 97 94 - 100 % POCT Oxy Hemoglobin, Arterial 95.1 94.0 - 98.0 % POCT Hematocrit Calculated, Arterial 32.0 (L) 41.0 - 52.0 % POCT Sodium, Arterial 133 (L) 136 - 145 mmol/L POCT Potassium, Arterial 4.4 3.5 - 5.3 mmol/L POCT Chloride, Arterial 103 98 - 107 mmol/L POCT Ionized Calcium, Arterial 1.14 1.10 - 1.33 mmol/L POCT Glucose, Arterial 159 (H) 74 - 99 mg/dL POCT Lactate, Arterial 2.0 0.4 - 2.0 mmol/L POCT Base Excess, Arterial -1.5 -2.0 - 3.0 mmol/L POCT HCO3 Calculated, Arterial 23.7 22.0 - 26.0 mmol/L POCT Hemoglobin, Arterial 10.8 (L) 13.5 - 17.5 g/dL POCT Anion Gap, Arterial 11 10 - 25 mmo/L Patient Temperature 37.0 degrees Celsius FiO2 100 % POCT GLUCOSE Result Value Ref Range POCT Glucose 148 (H) 74 - 99 mg/dL Cisco Saini is a 68 y.o. year old male patient who presents for Procedure(s): Off Pump CABG x 3; HURTADO- LAD, SVG-OM-PDA with Elisabeth Atkins MD on 09/27/2024. Acute Pain consulted for assistance with pain control. Plan: - Bilateral single shot serratus anterior blocks performed intra-operatively 09/27/24 - Pain medications per primary team - Acute pain service will sign off at this time Jake Mercedes PGY1 [place] [phone] ph [phone] Cosigned by Bert Crespo MD at 09/28/2024 10:09 AM EST Associated attestation - Bert Crespo MD - 09/28/2024 10:09 AM EST I saw and evaluated the patient. I personally obtained the coronel portions of the history and physical exam or was physically present for coronel portions performed by the resident/fellow. I reviewed the resident/fellow's documentation and discussed the patient with the resident/fellow. I agree with the resident/fellow's plan as documented in the note. CTICU Progress Note Cisco Groves Lauren/[id number] Admit Date: 09/27/2024 Hospital Length of Stay: 1 ICU Length of Stay: 17h CT SURGEON: SUBJECTIVE: NAEO Extubated yesterday Received 250mL LR and 250 5% albumin Patient denies fever, chills, nausea, vomiting. Pain is minimal. MEDICATIONS Infusions: lactated Ringer's lactated Ringer's, Last Rate: 5 mL/hr (09/28/24 0700) norepinephrine, Last Rate: Stopped (09/27/24 164) propofol, Last Rate: Stopped (09/27/24 164) Scheduled: acetaminophen, 650 mg, q6h aspirin, 81 mg, Daily atorvastatin, 80 mg, Nightly ceFAZolin, 2 g, q8h [Held by provider] clopidogrel, 75 mg, Daily [Held by provider] gabapentin, 200 mg, BID insulin lispro, 0-15 Units, q4h pantoprazole, 40 mg, Daily before breakfast Or pantoprazole, 40 mg, Daily before breakfast polyethylene glycol, 17 g, BID sennosides-docusate sodium, 2 tablet, BID [Held by provider] sertraline, 50 mg, Daily PRN: calcium gluconate, 1 g, q6h PRN calcium gluconate, 2 g, q6h PRN hydrALAZINE, 10 mg, q4h PRN HYDROmorphone, 0.2 mg, q2h PRN magnesium sulfate, 2 g, q6h PRN magnesium sulfate, 4 g, q6h PRN naloxone, 0.2 mg, q5 min PRN ondansetron, 4 mg, q8h PRN Or ondansetron, 4 mg, q8h PRN oxyCODONE, 10 mg, q4h PRN oxyCODONE, 5 mg, q4h PRN potassium chloride CR, 20 mEq, q6h PRN Or potassium chloride, 20 mEq, q6h PRN potassium chloride CR, 40 mEq, q6h PRN Or potassium chloride, 40 mEq, q6h PRN potassium chloride, 20 mEq, q6h PRN potassium chloride, 40 mEq, q6h PRN PHYSICAL EXAM: Visit Vitals BP 123/63 (BP Location: Left arm, Patient Position: Lying) Pulse 77 Temp 36.6 C (97.9 F) Resp (!) 8 Ht 1.676 m (5' 6) Wt 78.5 kg (173 lb) SpO2 94% BMI 27.92 kg/m Smoking Status Former BSA 1.91 m Wt Readings from Last 5 Encounters: 09/27/24 78.5 kg (173 lb) 09/19/24 79.4 kg (175 lb) 09/11/24 80.7 kg (178 lb) 08/30/24 78.5 kg (173 lb) 07/08/24 85.6 kg (188 lb 11.4 oz) INTAKE/OUTPUT: I/O last 3 completed shifts: In: 1254.1 (16 mL/kg) [I.V.:151.6 (1.9 mL/kg); Blood:490; IV Piggyback:612.5] Out: 1565 (19.9 mL/kg) [Urine:955 (0.3 mL/kg/hr); Chest Tube:610] Weight: 78.5 kg LDA: CVC 09/27/24 Double lumen Right Internal jugular (Active) Placement Date/Time: 09/27/24 (c) 0859 Hand Hygiene Performed Prior to CVC Insertion: Yes Site Prep: Chlorhexidine Site Prep Agent has Completely Dried Before Insertion: Yes All 5 Sterile Barriers Used (Gloves, Gown, Cap, Mask, Large Sterile Shannan... Number of days: 0 Arterial Line 09/27/24 Left Brachial (Active) Placement Date/Time: 09/27/24 (c) 0827 Size: 20 G Orientation: Left Location: Brachial Securement Method: Transparent dressing Patient Tolerance: Tolerated well Number of days: 0 Urethral Catheter Temperature probe 14 Fr. (Active) Placement Date/Time: 09/27/24 0847 Placed by: Kodak Zhou Hand Hygiene Completed: Yes Catheter Type: Temperature probe Tube Size (Fr.): 14 Fr. Catheter Balloon Size: 10 mL Urine Returned: Yes Number of days: 0 Chest Tube 1 Other (Comment) Pleural (Active) Placement Date/Time: 09/27/241456 Placed by: CT surgery Tube Number: 1 Chest Tube Orientation: Other (Comment) Chest Tube Location: Pleural Number of days: 0 Chest Tube 2 Mediastinal (Active) Placement Date/Time: 09/27/24 1457 Placed by: CT surgery Tube Number: 2 Chest Tube Location: Mediastinal Number of days: 0 Vent settings: Vent Mode: Pressure support S RR: [12-16] 12 S VT: [510 mL] 510 mL PEEP/CPAP (cm H2O): [5 cm H20-8 cm H20] 5 cm H20 [place] SUP: [5 cm H20] 5 cm H20 MAP (cm H2O): [12] 12 Physical Exam: - CONSTITUTION: male in no distress. - NEUROLOGIC: moves all 4 extremities spontaneously. Follows commands - CARDIOVASCULAR: RRR. Warm/well-perfused - RESPIRATORY: ETT present with equal chest rise - GI: non-distended - : normal male external genitalia - EXTREMITIES: warm distal extrm, no cyanosis - SKIN: no rashes/petechia noted - PSYCHIATRIC: normal mood/affect Images: Invasive Hemodynamics: Most Recent Range Past 24hrs BP (Art) 112/65 Arterial Line BP 1 Min: 111/65 Max: 156/86 MAP(Art) 84 mmHg Arterial Line MAP 1 (mmHg) Min: 83 mmHg Max: 114 mmHg RA/CVP No data recorded PA No data recorded PA(mean) No data recorded CO No data recorded CI No data recorded Mixed Venous No data recorded SVR No data recorded If Devices present, use phrases: For LVAD, .lhcticulvad For ECMO, .lhcticuecmo For Impella, .lhcticuimpella Daily Risk Screen: Line unnecessary, will be removed today critically ill patient who need accurate urinary output measurements Assessment/Plan Assessment: Cisco Saini is a 68 y.o. male with hx of HTN, HLD, CAD, depression, recent left lacunar infarct with right hemiplegia. During his hospitalization he had a NSTEMI and cath demonstrated, proximal LAD, OM and RCA disease and PFO and is recommended CABGx3 and PFO repair with Dr. Atkins 09/27 Plan: NEURO: PMH of CVA with right hemiplegia, Depression. Acute post operative pain. A x O x4, conversant this AM. LOVELL x4, wnl strength --> - Serial neuro and pain assessments - Scheduled Tylenol - PRN oxycodone - PRN dilaudid for pain - PT Consult, OOB to chair as tolerated - CAM ICU score qshift - Sleep/wake cycle hygiene - restart gabapentin, zoloft CV: Patient has a history of HTN, HLD, CAD, NSTEMI. Is now status post, Off Pump CABG x 3; HURTADO- LAD, SVG-OM-PDA. Pre/Post EF: 60-65% with normal function pre; Normal LV/RV function post. Arrived to CTICU on levo 0.06 and propofol. A/V epicardial wires set backup @ 60.--> - Maintain systolic goal >120 (permissive HTN for prior stroke) - Mixed venous and CI Q4H - Volume resuscitate as clinically indicated - Maintain epicardial wires set VVI @ 60 - If CABG is 2/2 STEMI/unstable angina, will receive Plavix POD2 - Start statin - Plan to restart metop 12.5mg BID once SBP >140 (hold off for now) - Hold home lisinopril, metoprolol succinate 25mg , nitroglycerin patch PULM: No history of pulmonary disease. Currently intubated on ventilator. Chest tubes R pleural, L pleural and mediastinal.Do not meet criteria for removing--> - On 4L NC - Wean FiO2 maintaining SpO2 >92%. - IS q1h and OOB to chair when extubated - Chest tubes to wall suction. GI: No significant PMH. --> - Passed swallow, on regular diet - Colace/senna BID and miralax BID : No history of renal disease, baseline creatinine 1.1. Creatinine stable post-op. Vitale in place and making adequate UOP. --> - Dc vitale catheter - Goal UOP 0.5ml/kg/hr - RFP as clinically indicated - Replete electrolytes per CTICU protocol ENDO: No significant PMH A1c: 5.8--> - Maintain BG <180, insulin per CTICU protocol HEME: Acute blood loss anemia and thrombocytopenia.--> - Monitor drain output volume and characteristics - CBC, coags, and fibrinogen post op and as clinically indicated - C/w ASA 6hrs - If CABG is 2/2 STEMI/unstable angina, will receive Plavix POD2 - SQH today - SCDs for DVT prophylaxis. - Last type and screen: 09/27 ID: Afebrile, no current indications of infection. MRSA negative.--> - Trend temp q4h - Periop cefazolin x 48hrs Skin: No active skin issues. - preventative Mepilex dressings in place on sacrum and heels - change preventative Mepilex weekly or more frequently as indicated (when moist/soiled) - every shift skin assessment per nursing and weekly ICU skin rounds - moisture barrier to be applied with susanne care - active skin problems addressed with nursing on daily rounds Proph: SCDs SQH G: Line Right IJ MAC w Minimac placed 09/27-->dc Left brachial a-line placed 09/27--> dc Vitale-->dc F: Family: will update at bedside postoperatively. Code status: Full Code A,B,C,D,E,F,G: reviewed Dispo: CTICU care for now. CTICU TEAM PHONE [phone] Cosigned by Gideon Orr MD at 09/28/2024 12:29 PM EST Associated attestation - Gideon Orr MD - 09/28/2024 12:29 PM EST Critical care time included obtaining a history, examining the patient, ordering and reviewing studies, discussing, developing, and implementing a management plan, evaluating the patient's response to treatment, and discussion with other care team providers. I saw and evaluated the patient myself. I reviewed the provider's documentation and discussed the patient with the provider. Critical care time was performed exclusive of billable procedures. Patient ready for transfer to [facility] this am Critical Care Time: 35 minutes Gideon Orr MD, [facility] Staff Critical Care Medicine Department of Anesthesiology [place]. [phone] 1/[address] SURGERY 09/27 CABGx3 and PFO repair with Dr. Atkins DC PLAN TBD - Care Transitions is following to develop a safe & supportive discharge plan in collaboration with multidisciplinary team (&) patient/family/significant others. ESTEBAN JESSICA PT/OT ( ) Awaiting COMPLETED (X) Daily ongoing review of patient via chart and/or (M-F) IDT rounds (X) 09/27 - New to unit and author: EPIC reviewed. Ruba Lau ([employer], BEAM HOUSE INSPECTOR) Pharmacy Medication History Review Cisco Saini is a 68 y.o. male who is planned to be admitted for Coronary artery disease involving [place] coronary artery of [place] heart. Per chart review, appears patient is currently living in a shelter facility, plan for medication list to be sent from facility the day of procedure. Home medications can be updated day of procedure. For a medication history on the day of admission, please contact the [facility] pharmacy by calling [facility] or [facility]. Preferred pharmacy and allergies to be confirmed with patient by nursing the day of procedure. [facility] documented in this encounter [facility] Work Phone: 10-04-2024 Hospital course Narrative Discharge Diagnosis Coronary artery disease involving [place] coronary artery of [place] heart S/p OP CABGx3 Issues Requiring Follow-Up Patient returning to his SNF Pt to f/up with PCP, clinical trials manager, and cardiac surgeon Test Results Pending At Discharge Pending Labs No current pending labs. Hospital Course Cisco Saini is a 68 y.o. male with hx of HTN, HLD, CAD, depression, recent left lacunar infarct with right hemiplegia. OPERATIONS / PROCEDURES: DR Medeiros on 09/27/24 #1 Off Pump CABG x 3; HURTADO- LAD, SVG-OM-PDA CVICU Course: Uneventful; no new neuro def postop Transfer to floor: 09/28 Floor Course: - Patient was diuresed for fluid volume overload post cardiac surgery; Preop weight: Weight: 78.5 kg (173 lb)kg. Day of discharge wt: 78.4 kg. Vital signs and weight at discharge: BP 103/72 (BP Location: Left arm, Patient Position: Lying) Pulse 85 Temp 36.9 C (98.4 F) (Temporal) Resp 18 Ht 1.676 m (5' 6) Wt 78.4 kg (172 lb 12.8 oz) Comment: Patient refused standing weight SpO2 94% BMI 27.89 kg/m - on ASA, Plavix (NSTEMI and OP CABG), BB, denia-I, statin - Epicardial wires CUT on 10/04 - remained SR on floor; telemetry at discharge: SR - chest tubes removed 09/30 - 2v CXR done 10/01/24 - Cardiac rehab referral was placed - PT recs SNF - Anticipate discharge to shelter facility Discharged to [facility] SNF on Wednesday, October 04, 2024; POD # 7 S/P Off Pump CABG x 3; HURTADO- LAD, SVG-OM-PDA. On day of discharge, vital signs were stable and no acute distress was noted. All questions were answered. After VS and labs were reviewed it was determined the patient was stable for discharge. Hospital day of discharge management- spent >30 minutes coordinating the discharge and counseling/educating patient and family regarding discharge instructions. HISTORY: Past Medical History: Diagnosis Date CAD (coronary artery disease) Depression Hemiplegia (Multi) r arm/leg HLD (hyperlipidemia) HTN (hypertension) Smoker Stroke (cerebrum) (Multi) Past Surgical History: Procedure Laterality Date CARDIAC CATHETERIZATION N/A 07/11/2024 Procedure: Left Heart Cath, With LV; Surgeon: Emanuel Kwong MD; Location: [facility] Cardiac Poker Machine Attendant; Service: Cardiovascular; Laterality: N/A; CARDIAC CATHETERIZATION N/A 07/11/2024 Procedure: Left Ventriculography; Surgeon: Emanuel Kwong MD; Location: [facility] Cardiac Poker Machine Attendant; Service: Cardiovascular; Laterality: N/A; Medications Prior to Admission Medication Sig Dispense Refill Last Dose/Taking acetaminophen (Tylenol) 325 mg tablet Take 2 tablets (650 mg) by mouth every 4 hours if needed for mild pain (1 - 3). 09/26/2024 aspirin 81 mg EC tablet Take 1 tablet (81 mg) by mouth once daily. 09/26/2024 bisacodyl (Dulcolax, bisacodyl,) 10 mg suppository Insert 1 suppository (10 mg) into the rectum once daily as needed for constipation. 09/26/2024 clopidogrel (Plavix) 75 mg tablet Take 1 tablet (75 mg) by mouth once daily. 10/01/2023 gabapentin (Neurontin) 100 mg capsule Take 2 capsules (200 mg) by mouth 2 times a day. 09/26/2024 lisinopril 5 mg tablet Take 1 tablet (5 mg) by mouth once daily. 09/26/2024 magnesium hydroxide (Milk Of Magnesia Concentrated) 2,400 mg/10 mL suspension suspension Take 30 mL by mouth every 6 hours if needed for constipation. Past Week nitroglycerin (Nitrodur) 0.1 mg/hr patch Place 1 patch on the skin once daily. 09/27/2024 Morning nystatin (Mycostatin) 100,000 unit/gram powder Apply 1 Application topically 2 times a day as needed. 09/26/2024 sennosides-docusate sodium (Senna Plus) 8.6-50 mg tablet Take 2 tablets by mouth every 12 hours if needed for constipation. 09/26/2024 sertraline (Zoloft) 50 mg tablet Take 1 tablet (50 mg) by mouth once daily. 09/26/2024 atorvastatin (Lipitor) 40 mg tablet Take 1 tablet (40 mg) by mouth once daily at bedtime. 30 tablet 0 metoprolol succinate XL (Toprol-XL) 25 mg 24 hr tablet Take 1 tablet (25 mg) by mouth once daily. Do not crush or chew. 30 tablet 0 oxymetazoline (Afrin) 0.05 % nasal spray Administer 2 sprays into each nostril every 12 hours if needed for congestion for up to 3 days. Do not use for more than 3 days. 30 mL 0 Patient has no known allergies. Social History Tobacco Use Smoking status: Former Types: Cigarettes Smokeless tobacco: Former Types: Chew Substance Use Topics Alcohol use: Yes Comment: occasional Drug use: Never Pertinent Physical Exam At Time of Discharge Physical Exam Please see progress note of 10/04/2024 for physical exam Home Medications Medication List START taking these medications aspirin 81 mg EC tablet; Take 1 tablet (81 mg) by mouth once daily.; Start taking on: October 05, 2024; Replaces: aspirin 81 mg chewable tablet furosemide 20 mg tablet; Commonly known as: Lasix; Take 1 tablet (20 mg) by mouth once daily for 3 days.; Start taking on: October 05, 2024 iron polysaccharides 150 mg iron capsule; Commonly known as: Nu-Iron,Niferex; Take 1 capsule (150 mg) by mouth once daily for 21 days.; Start taking on: October 05, 2024 multivitamin with minerals tablet; Take 1 tablet by mouth once daily.; Start taking on: October 05, 2024 CHANGE how you take these medications atorvastatin 80 mg tablet; Commonly known as: Lipitor; Take 1 tablet (80 mg) by mouth once daily at bedtime.; What changed: medication strength, how much to take lisinopril 2.5 mg tablet; Take 1 tablet (2.5 mg) by mouth once daily.; What changed: medication strength, how much to take metoprolol succinate XL 50 mg 24 hr tablet; Commonly known as: Toprol-XL; Take 1 tablet (50 mg) by mouth once daily. Do not crush or chew.; Start taking on: October 05, 2024; What changed: medication strength, how much to take CONTINUE taking these medications acetaminophen 325 mg tablet; Commonly known as: Tylenol clopidogrel 75 mg tablet; Commonly known as: Plavix Dulcolax (bisacodyl) 10 mg suppository; Generic drug: bisacodyl gabapentin 100 mg capsule; Commonly known as: Neurontin Milk Of Magnesia Concentrated 2,400 mg/10 mL suspension suspension; Generic drug: magnesium hydroxide nystatin 100,000 unit/gram powder; Commonly known as: Mycostatin Senna Plus 8.6-50 mg tablet; Generic drug: sennosides-docusate sodium sertraline 50 mg tablet; Commonly known as: Zoloft STOP taking these medications aspirin 81 mg chewable tablet; Replaced by: aspirin 81 mg EC tablet chlorhexidine 0.12 % solution; Commonly known as: Peridex chlorhexidine 4 % external liquid; Commonly known as: Hibiclens nitroglycerin 0.1 mg/hr patch; Commonly known as: Nitrodur oxymetazoline 0.05 % nasal spray; Commonly known as: Afrin Outpatient Follow-Up Future Appointments Date Time Provider Department Center 11/08/2024 1:45 PM Elisabeth Atkins MD [id number] TAM Rivera [facility] Cardiac surgery Team phone [phone] documented in this encounter [facility] Work Phone: 10-04-2024 Hospital Discharge instructions TAM Rivera - 10/04/2024 10:53 AM EST CARDIAC SURGERY: Don't forget to Keep Your Move in the Tube!! Please refer to the Move in the Tube handout. -- Load bearing activities can be completed if you are staying in the tube. If you are attempting load bearing activities, let pain be your guide with when trying an activity out of the tube . If an activity hurts or is uncomfortable go back to doing it while you stay in the tube . There is no time limit to stay in the tube . -- Non-load bearing activities, which are your activities of daily living, can be completed with your arms out of the tube as long as you remain pain free. Some activities of daily living examples are dressing, personal care, showering, washing hair, and toilet hygiene. Don't forget to KEEP YOUR MOVE IN THE TUBE and think of a Frank mendez! ----- Additional Post-Operative Instructions: - Remember to use your Incentive spirometer 10x/hr while awake. Remember to cough and deep breath. - No NSAIDs (common [id number] NSAIDs are ibuprofen/Motrin/Advil, naproxen/Naprosyn/Aleve) for 3 months after cardiac surgery; if NSAIDs needed after 3 months, clear use with clinical trials manager before starting. Your home medications may have changed after surgery. Carefully compare this list with your prescription bottles at home and set aside any medications you are told to not take so you do not confuse them. Do not dispose of any medications until your follow-up, since your doctors may restart some at your follow-up appointments. It is important to bring a complete, current list of your medications to any medical appointments or hospitalizations. For any questions about your discharge, please call the cardiac surgery office at [phone] The following attachments cannot be sent through Care Everywhere.STROKE OVERVIEW HANDOUTdocumented in this encounter [facility] Work Phone: 10-04-2024 Miscellaneous Notes Problem: Skin Goal: Decreased wound size/increased tissue granulation at next dressing change Outcome: Progressing Problem: Discharge Planning Goal: Discharge to home or other facility with appropriate resources Outcome: Progressing Problem: Fall/Injury Goal: Not fall by end of shift Outcome: Progressing The patient's goals for the shift include The clinical goals for the shift include patient will remain HDS throughout shift Ventricular wires cut at skin level at 10am due to surgeon preference. Patient instructed to notify radiology of retained epicardial wires prior to any MRI procedure, and to notify Dr Atkins of any visible wires or s/s infection. TAM Rivera [facility] Cardiac surgery Team phone [phone] The patient's goals for the shift include rest The clinical goals for the shift include patient will remain HDS throughout shift Problem: Skin Goal: Decreased wound size/increased tissue granulation at next dressing change Outcome: Progressing Goal: Participates in plan/prevention/treatment measures Outcome: Progressing Goal: Prevent/manage excess moisture Outcome: Progressing Goal: Prevent/minimize sheer/friction injuries Outcome: Progressing Goal: Promote/optimize nutrition Outcome: Progressing Goal: Promote skin healing Outcome: Progressing Problem: Discharge Planning Goal: Discharge to home or other facility with appropriate resources Outcome: Progressing Problem: Chronic Conditions and Co-morbidities Goal: Patient's chronic conditions and co-morbidity symptoms are monitored and maintained or improved Outcome: Progressing Problem: Fall/Injury Goal: Not fall by end of shift Outcome: Progressing Goal: Be free from injury by end of the shift Outcome: Progressing Goal: Verbalize understanding of personal risk factors for fall in the hospital Outcome: Progressing Goal: Verbalize understanding of risk factor reduction measures to prevent injury from fall in the home Outcome: Progressing Goal: Use assistive devices by end of the shift Outcome: Progressing Goal: Pace activities to prevent fatigue by end of the shift Outcome: Progressing Problem: Pain Goal: Takes deep breaths with improved pain control throughout the shift Outcome: Progressing Goal: Turns in bed with improved pain control throughout the shift Outcome: Progressing Goal: Walks with improved pain control throughout the shift Outcome: Progressing Goal: Performs ADL's with improved pain control throughout shift Outcome: Progressing Goal: Participates in PT with improved pain control throughout the shift Outcome: Progressing Goal: Free from opioid side effects throughout the shift Outcome: Progressing Goal: Free from acute confusion related to pain meds throughout the shift Outcome: Progressing Problem: Respiratory Goal: Clear secretions with interventions this shift Outcome: Progressing Goal: Minimize anxiety/maximize coping throughout shift Outcome: Progressing Goal: Minimal/no exertional discomfort or dyspnea this shift Outcome: Progressing Goal: No signs of respiratory distress (eg. Use of accessory muscles. Peds grunting) Outcome: Progressing Goal: Patent airway maintained this shift Outcome: Progressing Goal: Tolerate mechanical ventilation evidenced by VS/agitation level this shift Outcome: Progressing Goal: Tolerate pulmonary toileting this shift Outcome: Progressing Goal: Verbalize decreased shortness of breath this shift Outcome: Progressing Goal: Wean oxygen to maintain O2 saturation per order/standard this shift Outcome: Progressing Goal: Increase self care and/or family involvement in next 24 hours Outcome: Progressing The clinical goals for the shift include patient will remain hemodynamically stable throughout the shift Problem: Skin Goal: Decreased wound size/increased tissue granulation at next dressing change Outcome: Progressing Goal: Participates in plan/prevention/treatment measures Outcome: Progressing Goal: Prevent/manage excess moisture Outcome: Progressing Goal: Prevent/minimize sheer/friction injuries Outcome: Progressing Goal: Promote/optimize nutrition Outcome: Progressing Goal: Promote skin healing Outcome: Progressing Problem: Fall/Injury Goal: Not fall by end of shift Outcome: Progressing Goal: Be free from injury by end of the shift Outcome: Progressing Goal: Verbalize understanding of personal risk factors for fall in the hospital Outcome: Progressing Goal: Verbalize understanding of risk factor reduction measures to prevent injury from fall in the home Outcome: Progressing Goal: Use assistive devices by end of the shift Outcome: Progressing Goal: Pace activities to prevent fatigue by end of the shift Outcome: Progressing Problem: Pain Goal: Takes deep breaths with improved pain control throughout the shift Outcome: Progressing Goal: Turns in bed with improved pain control throughout the shift Outcome: Progressing Goal: Walks with improved pain control throughout the shift Outcome: Progressing Goal: Performs ADL's with improved pain control throughout shift Outcome: Progressing Goal: Participates in PT with improved pain control throughout the shift Outcome: Progressing Goal: Free from opioid side effects throughout the shift Outcome: Progressing Goal: Free from acute confusion related to pain meds throughout the shift Outcome: Progressing The patient's goals for the shift include get some sleep The clinical goals for the shift include pt will remian safe and HDS throughout the shift Problem: Skin Goal: Decreased wound size/increased tissue granulation at next dressing change Outcome: Progressing Goal: Participates in plan/prevention/treatment measures Outcome: Progressing Goal: Prevent/manage excess moisture Outcome: Progressing Flowsheets (Taken 10/02/2024 0733) Prevent/manage excess moisture: Moisturize dry skin Goal: Prevent/minimize sheer/friction injuries Outcome: Progressing Goal: Promote/optimize nutrition Outcome: Progressing Goal: Promote skin healing Outcome: Progressing Problem: Discharge Planning Goal: Discharge to home or other facility with appropriate resources Outcome: Progressing Problem: Chronic Conditions and Co-morbidities Goal: Patient's chronic conditions and co-morbidity symptoms are monitored and maintained or improved Outcome: Progressing Problem: Fall/Injury Goal: Not fall by end of shift Outcome: Progressing Goal: Be free from injury by end of the shift Outcome: Progressing Goal: Verbalize understanding of personal risk factors for fall in the hospital Outcome: Progressing Goal: Verbalize understanding of risk factor reduction measures to prevent injury from fall in the home Outcome: Progressing Goal: Use assistive devices by end of the shift Outcome: Progressing Goal: Pace activities to prevent fatigue by end of the shift Outcome: Progressing Problem: Pain Goal: Takes deep breaths with improved pain control throughout the shift Outcome: Progressing Goal: Turns in bed with improved pain control throughout the shift Outcome: Progressing Goal: Walks with improved pain control throughout the shift Outcome: Progressing Goal: Performs ADL's with improved pain control throughout shift Outcome: Progressing Goal: Participates in PT with improved pain control throughout the shift Outcome: Progressing Goal: Free from opioid side effects throughout the shift Outcome: Progressing Goal: Free from acute confusion related to pain meds throughout the shift Outcome: Progressing Problem: Respiratory Goal: Clear secretions with interventions this shift Outcome: Progressing Goal: Minimize anxiety/maximize coping throughout shift Outcome: Progressing Goal: Minimal/no exertional discomfort or dyspnea this shift Outcome: Progressing Goal: No signs of respiratory distress (eg. Use of accessory muscles. Peds grunting) Outcome: Progressing Goal: Patent airway maintained this shift Outcome: Progressing Goal: Tolerate mechanical ventilation evidenced by VS/agitation level this shift Outcome: Progressing Goal: Tolerate pulmonary toileting this shift Outcome: Progressing Goal: Verbalize decreased shortness of breath this shift Outcome: Progressing Goal: Wean oxygen to maintain O2 saturation per order/standard this shift Outcome: Progressing Goal: Increase self care and/or family involvement in next 24 hours Outcome: Progressing The patient's goals for the shift include safety The clinical goals for the shift include safety Problem: Skin Goal: Decreased wound size/increased tissue granulation at next dressing change Outcome: Progressing Goal: Participates in plan/prevention/treatment measures Outcome: Progressing Goal: Prevent/manage excess moisture Outcome: Progressing Goal: Prevent/minimize sheer/friction injuries Outcome: Progressing Goal: Promote/optimize nutrition Outcome: Progressing Goal: Promote skin healing Outcome: Progressing Problem: Discharge Planning Goal: Discharge to home or other facility with appropriate resources Outcome: Progressing Problem: Chronic Conditions and Co-morbidities Goal: Patient's chronic conditions and co-morbidity symptoms are monitored and maintained or improved Outcome: Progressing Problem: Fall/Injury Goal: Not fall by end of shift Outcome: Progressing Goal: Be free from injury by end of the shift Outcome: Progressing Goal: Verbalize understanding of personal risk factors for fall in the hospital Outcome: Progressing Goal: Verbalize understanding of risk factor reduction measures to prevent injury from fall in the home Outcome: Progressing Goal: Use assistive devices by end of the shift Outcome: Progressing Goal: Pace activities to prevent fatigue by end of the shift Outcome: Progressing Problem: Pain Goal: Takes deep breaths with improved pain control throughout the shift Outcome: Progressing Goal: Turns in bed with improved pain control throughout the shift Outcome: Progressing Goal: Walks with improved pain control throughout the shift Outcome: Progressing Goal: Performs ADL's with improved pain control throughout shift Outcome: Progressing Goal: Participates in PT with improved pain control throughout the shift Outcome: Progressing Goal: Free from opioid side effects throughout the shift Outcome: Progressing Goal: Free from acute confusion related to pain meds throughout the shift Outcome: Progressing Problem: Respiratory Goal: Clear secretions with interventions this shift Outcome: Progressing Goal: Minimize anxiety/maximize coping throughout shift Outcome: Progressing Goal: Minimal/no exertional discomfort or dyspnea this shift Outcome: Progressing Goal: No signs of respiratory distress (eg. Use of accessory muscles. Peds grunting) Outcome: Progressing Goal: Patent airway maintained this shift Outcome: Progressing Goal: Tolerate mechanical ventilation evidenced by VS/agitation level this shift Outcome: Progressing Goal: Tolerate pulmonary toileting this shift Outcome: Progressing Goal: Verbalize decreased shortness of breath this shift Outcome: Progressing Goal: Wean oxygen to maintain O2 saturation per order/standard this shift Outcome: Progressing Goal: Increase self care and/or family involvement in next 24 hours Outcome: Progressing Problem: COGNITION/SAFETY Goal: Patient will recall and adhere to MITT precautions during all functional mobility/ADL tasks in order to demonstrate improved understanding and promote healing post op 10/01/2024 141 by Michelle Bautista OT Outcome: Progressing 10/01/2024 141 by Michelle Bautista OT Outcome: Progressing Problem: ADLs Goal: Patient with complete upper body dressing with minimal assist level of assistance donning and doffing all UE clothes with PRN adaptive equipment while edge of bed 10/01/2024 141 by Michelle Bautista, OT Outcome: Progressing 10/01/2024 141 by Michelle Bautista OT Outcome: Progressing Goal: Patient with complete lower body dressing with moderate assist level of assistance donning and doffing all LE clothes with PRN adaptive equipment while edge of bed 10/01/2024 141 by Michelle Bautista OT Outcome: Progressing 10/01/2024 141 by Michelle Bautista OT Outcome: Progressing Goal: Patient will feed self with set-up level of assistance using PRN adaptive equipment. 10/01/2024 141 by Michelle Bautista OT Outcome: Progressing 10/01/2024 141 by Michelle Bautista OT Outcome: Progressing Goal: Patient will complete daily grooming tasks brushing teeth and washing face/hair with set-up level of assistance and PRN adaptive equipment while edge of bed . 10/01/2024 141 by Michelle Bautista OT Outcome: Progressing 10/01/2024 141 by Michelle Bautista OT Outcome: Progressing Goal: Patient will complete toileting including hygiene clothing management/hygiene with minimal assist level of assistance and raised toilet seat. 10/01/2024 1417 by Michelle Bautista OT Outcome: Progressing 10/01/2024 1416 by Michelle Bautista OT Outcome: Progressing Problem: TRANSFERS Goal: Patient will perform bed mobility stand by assist level of assistance and bed rails in order to improve safety and independence with mobility 10/01/2024 1417 by Michelle Bautista OT Outcome: Progressing 10/01/2024 1416 by Michelle Bautista OT Outcome: Progressing Goal: Patient will complete functional transfer to toilet/chair with least restrictive device with minimal assist level of assistance. 10/01/2024 1417 by Michelle Bautista OT Outcome: Progressing 10/01/2024 141 by Michelle Bautista OT Outcome: Progressing Problem: Skin Goal: Decreased wound size/increased tissue granulation at next dressing change Outcome: Progressing Goal: Participates in plan/prevention/treatment measures Outcome: Progressing Goal: Prevent/manage excess moisture Outcome: Progressing Flowsheets (Taken 10/01/2024 1121) Prevent/manage excess moisture: Moisturize dry skin Goal: Prevent/minimize sheer/friction injuries Outcome: Progressing Goal: Promote/optimize nutrition Outcome: Progressing Goal: Promote skin healing Outcome: Progressing Problem: Discharge Planning Goal: Discharge to home or other facility with appropriate resources Outcome: Progressing Problem: Chronic Conditions and Co-morbidities Goal: Patient's chronic conditions and co-morbidity symptoms are monitored and maintained or improved Outcome: Progressing Problem: Fall/Injury Goal: Not fall by end of shift Outcome: Progressing Goal: Be free from injury by end of the shift Outcome: Progressing Goal: Verbalize understanding of personal risk factors for fall in the hospital Outcome: Progressing Goal: Verbalize understanding of risk factor reduction measures to prevent injury from fall in the home Outcome: Progressing Goal: Use assistive devices by end of the shift Outcome: Progressing Goal: Pace activities to prevent fatigue by end of the shift Outcome: Progressing Problem: Pain Goal: Takes deep breaths with improved pain control throughout the shift Outcome: Progressing Goal: Turns in bed with improved pain control throughout the shift Outcome: Progressing Goal: Walks with improved pain control throughout the shift Outcome: Progressing Goal: Performs ADL's with improved pain control throughout shift Outcome: Progressing Goal: Participates in PT with improved pain control throughout the shift Outcome: Progressing Goal: Free from opioid side effects throughout the shift Outcome: Progressing Goal: Free from acute confusion related to pain meds throughout the shift Outcome: Progressing Problem: Respiratory Goal: Clear secretions with interventions this shift Outcome: Progressing Goal: Minimize anxiety/maximize coping throughout shift Outcome: Progressing Goal: Minimal/no exertional discomfort or dyspnea this shift Outcome: Progressing Goal: No signs of respiratory distress (eg. Use of accessory muscles. Peds grunting) Outcome: Progressing Goal: Patent airway maintained this shift Outcome: Progressing Goal: Tolerate mechanical ventilation evidenced by VS/agitation level this shift Outcome: Progressing Goal: Tolerate pulmonary toileting this shift Outcome: Progressing Goal: Verbalize decreased shortness of breath this shift Outcome: Progressing Goal: Wean oxygen to maintain O2 saturation per order/standard this shift Outcome: Progressing Goal: Increase self care and/or family involvement in next 24 hours Outcome: Progressing The patient's goals for the shift include safety The clinical goals for the shift include safety Problem: Skin Goal: Decreased wound size/increased tissue granulation at next dressing change Outcome: Progressing Goal: Participates in plan/prevention/treatment measures Outcome: Progressing Goal: Prevent/manage excess moisture Outcome: Progressing Goal: Prevent/minimize sheer/friction injuries Outcome: Progressing Goal: Promote/optimize nutrition Outcome: Progressing Goal: Promote skin healing Outcome: Progressing Problem: Discharge Planning Goal: Discharge to home or other facility with appropriate resources Outcome: Progressing Problem: Chronic Conditions and Co-morbidities Goal: Patient's chronic conditions and co-morbidity symptoms are monitored and maintained or improved Outcome: Progressing Problem: Fall/Injury Goal: Not fall by end of shift Outcome: Progressing Goal: Be free from injury by end of the shift Outcome: Progressing Goal: Verbalize understanding of personal risk factors for fall in the hospital Outcome: Progressing Goal: Verbalize understanding of risk factor reduction measures to prevent injury from fall in the home Outcome: Progressing Goal: Use assistive devices by end of the shift Outcome: Progressing Goal: Pace activities to prevent fatigue by end of the shift Outcome: Progressing Problem: Pain Goal: Takes deep breaths with improved pain control throughout the shift Outcome: Progressing Goal: Turns in bed with improved pain control throughout the shift Outcome: Progressing Goal: Walks with improved pain control throughout the shift Outcome: Progressing Goal: Performs ADL's with improved pain control throughout shift Outcome: Progressing Goal: Participates in PT with improved pain control throughout the shift Outcome: Progressing Goal: Free from opioid side effects throughout the shift Outcome: Progressing Goal: Free from acute confusion related to pain meds throughout the shift Outcome: Progressing Problem: Respiratory Goal: Clear secretions with interventions this shift Outcome: Progressing Goal: Minimize anxiety/maximize coping throughout shift Outcome: Progressing Goal: Minimal/no exertional discomfort or dyspnea this shift Outcome: Progressing Goal: No signs of respiratory distress (eg. Use of accessory muscles. Peds grunting) Outcome: Progressing Goal: Patent airway maintained this shift Outcome: Progressing Goal: Tolerate mechanical ventilation evidenced by VS/agitation level this shift Outcome: Progressing Goal: Tolerate pulmonary toileting this shift Outcome: Progressing Goal: Verbalize decreased shortness of breath this shift Outcome: Progressing Goal: Wean oxygen to maintain O2 saturation per order/standard this shift Outcome: Progressing Goal: Increase self care and/or family involvement in next 24 hours Outcome: Progressing 1 right pleural, 1 left pleural, and 1 mediastinal chest tube removed without difficulty. Patient tolerated well. Stat 1V CXR ordered. The patient's goals for the shift include The clinical goals for the shift include pt will remain HDS throughout shift Problem: Skin Goal: Participates in plan/prevention/treatment measures Outcome: Progressing Goal: Promote/optimize nutrition Outcome: Progressing Goal: Promote skin healing Outcome: Progressing Problem: Safety - Adult Goal: Free from fall injury Outcome: Progressing Problem: Fall/Injury Goal: Not fall by end of shift Outcome: Progressing Goal: Be free from injury by end of the shift Outcome: Progressing Problem: Pain Goal: Takes deep breaths with improved pain control throughout the shift Outcome: Progressing Problem: Respiratory Goal: Clear secretions with interventions this shift Outcome: Progressing The clinical goals for the shift include pt will remain HDS throughout shift Cisco Saini is a 68 y.o. male with hx of HTN, HLD, CAD, depression, recent left lacunar infarct with right hemiplegia. OPERATIONS / PROCEDURES: DR Medeiros on 09/27/24 #1 Off Pump CABG x 3; HURTADO- LAD, SVG-OM-PDA CVICU Course: Uneventful; no new neuro def postop Transfer to floor: 09/28 Floor Course: - Patient was diuresed for fluid volume overload post cardiac surgery; Preop weight: Weight: 78.5 kg (173 lb)kg. Day of discharge wt: 78.4 kg. Vital signs and weight at discharge: BP 103/72 (BP Location: Left arm, Patient Position: Lying) Pulse 85 Temp 36.9 C (98.4 F) (Temporal) Resp 18 Ht 1.676 m (5' 6) Wt 78.4 kg (172 lb 12.8 oz) Comment: Patient refused standing weight SpO2 94% BMI 27.89 kg/m - on ASA, Plavix (NSTEMI and OP CABG), BB, denia-I, statin - Epicardial wires CUT on 10/04 - remained SR on floor; telemetry at discharge: SR - chest tubes removed 09/30 - 2v CXR done 10/01/24 - Cardiac rehab referral was placed - PT recs SNF - Anticipate discharge to shelter facility Discharged to [facility] on Wednesday, October 04, 2024; POD # 7 S/P Off Pump CABG x 3; HURTADO- LAD, SVG-OM-PDA. On day of discharge, vital signs were stable and no acute distress was noted. All questions were answered. After VS and labs were reviewed it was determined the patient was stable for discharge. Hospital day of discharge management- spent >30 minutes coordinating the discharge and counseling/educating patient and family regarding discharge instructions. HISTORY: Past Medical History: Diagnosis Date CAD (coronary artery disease) Depression Hemiplegia (Multi) r arm/leg HLD (hyperlipidemia) HTN (hypertension) Smoker Stroke (cerebrum) (Multi) Past Surgical History: Procedure Laterality Date CARDIAC CATHETERIZATION N/A 07/11/2024 Procedure: Left Heart Cath, With LV; Surgeon: Emanuel Kwong MD; Location: [facility] Cardiac Poker Machine Attendant; Service: Cardiovascular; Laterality: N/A; CARDIAC CATHETERIZATION N/A 07/11/2024 Procedure: Left Ventriculography; Surgeon: Emanuel Kwong MD; Location: [facility] Cardiac Poker Machine Attendant; Service: Cardiovascular; Laterality: N/A; Medications Prior to Admission Medication Sig Dispense Refill Last Dose/Taking acetaminophen (Tylenol) 325 mg tablet Take 2 tablets (650 mg) by mouth every 4 hours if needed for mild pain (1 - 3). 09/26/2024 aspirin 81 mg EC tablet Take 1 tablet (81 mg) by mouth once daily. 09/26/2024 bisacodyl (Dulcolax, bisacodyl,) 10 mg suppository Insert 1 suppository (10 mg) into the rectum once daily as needed for constipation. 09/26/2024 clopidogrel (Plavix) 75 mg tablet Take 1 tablet (75 mg) by mouth once daily. 10/01/2023 gabapentin (Neurontin) 100 mg capsule Take 2 capsules (200 mg) by mouth 2 times a day. 09/26/2024 lisinopril 5 mg tablet Take 1 tablet (5 mg) by mouth once daily. 09/26/2024 magnesium hydroxide (Milk Of Magnesia Concentrated) 2,400 mg/10 mL suspension suspension Take 30 mL by mouth every 6 hours if needed for constipation. Past Week nitroglycerin (Nitrodur) 0.1 mg/hr patch Place 1 patch on the skin once daily. 09/27/2024 Morning nystatin (Mycostatin) 100,000 unit/gram powder Apply 1 Application topically 2 times a day as needed. 09/26/2024 sennosides-docusate sodium (Senna Plus) 8.6-50 mg tablet Take 2 tablets by mouth every 12 hours if needed for constipation. 09/26/2024 sertraline (Zoloft) 50 mg tablet Take 1 tablet (50 mg) by mouth once daily. 09/26/2024 atorvastatin (Lipitor) 40 mg tablet Take 1 tablet (40 mg) by mouth once daily at bedtime. 30 tablet 0 metoprolol succinate XL (Toprol-XL) 25 mg 24 hr tablet Take 1 tablet (25 mg) by mouth once daily. Do not crush or chew. 30 tablet 0 oxymetazoline (Afrin) 0.05 % nasal spray Administer 2 sprays into each nostril every 12 hours if needed for congestion for up to 3 days. Do not use for more than 3 days. 30 mL 0 Patient has no known allergies. Social History Tobacco Use Smoking status: Former Types: Cigarettes Smokeless tobacco: Former Types: Chew Substance Use Topics Alcohol use: Yes Comment: occasional Drug use: Never Rapid Response Nurse Note: RADAR alert: 6 Pager time: [phone] Arrival time: 949 Event end time: 954 Location: [place] [id number] [] Triage by phone or secure messaging Rapid response initiated by: [] Rapid response RN [] Family [] Nursing Storage Management Architect [] Physician [x] RADAR auto page [] Sepsis auto-page [] RN [] RT [] SHIPPING RECEIVING MANAGER/PA [] Other: Primary reason for call: [] BAT [] New CPAP/BiPAP [] Bleeding [] Change in mental status [] Chest pain [] Code blue [] FiO2 >/= 50% [] HR </= 40 bpm [] HR >/= 130 bpm [] Hyperglycemia [] Hypoglycemia [x] RADAR [] RR </= 8 bpm [] RR >/= 30 bpm [] SBP </= 90 mmHg [] SpO2 < 90% [] Seizure [] Sepsis [] Shortness of breath [] Staff concern: see comments Initial VS and/or RADAR VS: T 36.8 C; HR 88; RR 18; BP 103/69; SPO2 90%. Providers present at bedside (if applicable): Rapid Response RN, Primary RN Name of ICU Provider contacted (if applicable): Interventions: [x] None [] ABG/VBG [] Assist w/ICU transfer [] BAT paged [] Bag mask [] Blood [] Cardioversion [] Code Blue [] Code blue for intubation [] Code status changed [] Chest x-ray [] EKG [] IV fluid/bolus [] KUB x-ray [] Labs/cultures [] Medication [] Nebulizer treatment [] NIPPV (CPAP/BiPAP) [] Oxygen [] Oral airway [] Peripheral IV [] Palliative care consult [] CT/MRI [] Sepsis protocol [] Suctioned [] Other: Outcome: [] Coded and [] Code blue for intubation [] Coded and transferred to ICU [] on division [x] Remained on division (no change) [] Remained on division + additional monitoring [] Remained in ED [] Transferred to ED [] Transferred to ICU [] Transferred to inpatient status [] Transferred for interventions (procedure) [] Transferred to ICU stepdown [] Transferred to surgery [] Transferred to telemetry [] Sepsis protocol [] STEMI protocol [] Stroke protocol [x] Bedside nurse instructed to page rapid response for any concerns or acute change in condition/VS Additional Comments: Radar auto-page received for a radar score of 6 with the above listed vital signs. Vital signs were confirmed and reviewed with primary RN. SpO2 rechecked for 94% on 4 liters. He is sitting at the bedside and is dyspneic. Suspect hypoventilation related to sternal pain. Encouraged deep breathing and use of IS. RN to contact Rapid Response with any future concerns or signs of clinical decompensation. Problem: Skin Goal: Decreased wound size/increased tissue granulation at next dressing change Outcome: Progressing Goal: Participates in plan/prevention/treatment measures Outcome: Progressing Goal: Prevent/manage excess moisture Outcome: Progressing Goal: Prevent/minimize sheer/friction injuries Outcome: Progressing Goal: Promote/optimize nutrition Outcome: Progressing Goal: Promote skin healing Outcome: Progressing Problem: Safety - Adult Goal: Free from fall injury Outcome: Progressing Problem: Chronic Conditions and Co-morbidities Goal: Patient's chronic conditions and co-morbidity symptoms are monitored and maintained or improved Outcome: Progressing Problem: Fall/Injury Goal: Not fall by end of shift Outcome: Progressing Goal: Be free from injury by end of the shift Outcome: Progressing Goal: Verbalize understanding of personal risk factors for fall in the hospital Outcome: Progressing Goal: Verbalize understanding of risk factor reduction measures to prevent injury from fall in the home Outcome: Progressing Goal: Use assistive devices by end of the shift Outcome: Progressing Goal: Pace activities to prevent fatigue by end of the shift Outcome: Progressing Problem: Pain Goal: Takes deep breaths with improved pain control throughout the shift Outcome: Progressing Goal: Turns in bed with improved pain control throughout the shift Outcome: Progressing Goal: Walks with improved pain control throughout the shift Outcome: Progressing Goal: Performs ADL's with improved pain control throughout shift Outcome: Progressing Goal: Participates in PT with improved pain control throughout the shift Outcome: Progressing Goal: Free from opioid side effects throughout the shift Outcome: Progressing Goal: Free from acute confusion related to pain meds throughout the shift Outcome: Progressing The clinical goals for the shift include pt will remain HDS throughout shift 09/27/24 2104 Daily Screen Total RSBI (S) 58.36 Weaning Parameters Weaning Vital Capacity (S) 621 mL Negative Inspiratory Force (NIF) (S) -30.6 Spontaneous Minute Volume (MV) (S) 8.29 Weaning Tidal Volume (S) 377 mL Respiratory Depth/Rhythm (S) (rr 22) Respiratory Effort (S) Unlabored Problem: Skin Goal: Decreased wound size/increased tissue granulation at next dressing change Outcome: Progressing Goal: Participates in plan/prevention/treatment measures Outcome: Progressing Goal: Prevent/manage excess moisture Outcome: Progressing Goal: Prevent/minimize sheer/friction injuries Outcome: Progressing Goal: Promote/optimize nutrition Outcome: Progressing Goal: Promote skin healing Outcome: Progressing Problem: Pain - Adult Goal: Verbalizes/displays adequate comfort level or baseline comfort level Outcome: Progressing Problem: Safety - Adult Goal: Free from fall injury Outcome: Progressing Problem: Discharge Planning Goal: Discharge to home or other facility with appropriate resources Outcome: Progressing Problem: Chronic Conditions and Co-morbidities Goal: Patient's chronic conditions and co-morbidity symptoms are monitored and maintained or improved Outcome: Progressing Problem: Fall/Injury Goal: Not fall by end of shift Outcome: Progressing Goal: Be free from injury by end of the shift Outcome: Progressing Goal: Verbalize understanding of personal risk factors for fall in the hospital Outcome: Progressing Goal: Verbalize understanding of risk factor reduction measures to prevent injury from fall in the home Outcome: Progressing Goal: Use assistive devices by end of the shift Outcome: Progressing Goal: Pace activities to prevent fatigue by end of the shift Outcome: Progressing Problem: Pain Goal: Takes deep breaths with improved pain control throughout the shift Outcome: Progressing Goal: Turns in bed with improved pain control throughout the shift Outcome: Progressing Goal: Walks with improved pain control throughout the shift Outcome: Progressing Goal: Performs ADL's with improved pain control throughout shift Outcome: Progressing Goal: Participates in PT with improved pain control throughout the shift Outcome: Progressing Goal: Free from opioid side effects throughout the shift Outcome: Progressing Goal: Free from acute confusion related to pain meds throughout the shift Outcome: Progressing Problem: Respiratory Goal: Clear secretions with interventions this shift Outcome: Progressing Goal: Minimize anxiety/maximize coping throughout shift Outcome: Progressing Goal: Minimal/no exertional discomfort or dyspnea this shift Outcome: Progressing Goal: No signs of respiratory distress (eg. Use of accessory muscles. Peds grunting) Outcome: Progressing Goal: Patent airway maintained this shift Outcome: Progressing Goal: Tolerate mechanical ventilation evidenced by VS/agitation level this shift Outcome: Progressing Goal: Tolerate pulmonary toileting this shift Outcome: Progressing Goal: Verbalize decreased shortness of breath this shift Outcome: Progressing Goal: Wean oxygen to maintain O2 saturation per order/standard this shift Outcome: Progressing Goal: Increase self care and/or family involvement in next 24 hours Outcome: Progressing Problem: Safety - Medical Restraint Goal: Remains free of injury from restraints (Restraint for Interference with Assurance Assistant) Outcome: Progressing Goal: Free from restraint(s) (Restraint for Interference with Assurance Assistant) Outcome: Progressing Problem: Skin Goal: Decreased wound size/increased tissue granulation at next dressing change Outcome: Progressing Goal: Participates in plan/prevention/treatment measures Outcome: Progressing Goal: Prevent/manage excess moisture Outcome: Progressing Goal: Prevent/minimize sheer/friction injuries Outcome: Progressing Goal: Promote/optimize nutrition Outcome: Progressing Goal: Promote skin healing Outcome: Progressing Problem: Pain - Adult Goal: Verbalizes/displays adequate comfort level or baseline comfort level Outcome: Progressing Problem: Safety - Adult Goal: Free from fall injury Outcome: Progressing Problem: Discharge Planning Goal: Discharge to home or other facility with appropriate resources Outcome: Progressing Problem: Chronic Conditions and Co-morbidities Goal: Patient's chronic conditions and co-morbidity symptoms are monitored and maintained or improved Outcome: Progressing Problem: Fall/Injury Goal: Not fall by end of shift Outcome: Progressing Goal: Be free from injury by end of the shift Outcome: Progressing Goal: Verbalize understanding of personal risk factors for fall in the hospital Outcome: Progressing Goal: Verbalize understanding of risk factor reduction measures to prevent injury from fall in the home Outcome: Progressing Goal: Use assistive devices by end of the shift Outcome: Progressing Goal: Pace activities to prevent fatigue by end of the shift Outcome: Progressing Problem: Pain Goal: Takes deep breaths with improved pain control throughout the shift Outcome: Progressing Goal: Turns in bed with improved pain control throughout the shift Outcome: Progressing Goal: Walks with improved pain control throughout the shift Outcome: Progressing Goal: Performs ADL's with improved pain control throughout shift Outcome: Progressing Goal: Participates in PT with improved pain control throughout the shift Outcome: Progressing Goal: Free from opioid side effects throughout the shift Outcome: Progressing Goal: Free from acute confusion related to pain meds throughout the shift Outcome: Progressing Problem: Respiratory Goal: Clear secretions with interventions this shift Outcome: Progressing Goal: Minimize anxiety/maximize coping throughout shift Outcome: Progressing Goal: Minimal/no exertional discomfort or dyspnea this shift Outcome: Progressing Goal: No signs of respiratory distress (eg. Use of accessory muscles. Peds grunting) Outcome: Progressing Goal: Patent airway maintained this shift Outcome: Progressing Goal: Tolerate mechanical ventilation evidenced by VS/agitation level this shift Outcome: Progressing Goal: Tolerate pulmonary toileting this shift Outcome: Progressing Goal: Verbalize decreased shortness of breath this shift Outcome: Progressing Goal: Wean oxygen to maintain O2 saturation per order/standard this shift Outcome: Progressing Goal: Increase self care and/or family involvement in next 24 hours Outcome: Progressing Problem: Safety - Medical Restraint Goal: Remains free of injury from restraints (Restraint for Interference with Assurance Assistant) Outcome: Progressing Goal: Free from restraint(s) (Restraint for Interference with Assurance Assistant) Outcome: Progressing documented in this encounter [facility] Work Phone: 09-27-2024 History and physical note CTICU History & Physical Subjective HPI: Cisco Saini is a 68 y.o. male with hx of HTN, HLD, CAD, depression, recent left lacunar infarct with right hemiplegia. During his hospitalization he had a NSTEMI and cath demonstrated, proximal LAD, OM and RCA disease and PFO and is recommended CABGx3 and PFO repair with Dr. Atkins 09/27 Cardiac Testing: TTE: (07/08) CONCLUSIONS: 1. The left ventricular systolic function is normal, with a visually estimated ejection fraction of 60-65%. 2. Spectral Doppler shows an impaired relaxation pattern of left ventricular diastolic filling. 3. There is normal right ventricular global systolic function. 4. Bubble study is positive for a right to left shunt, suggestive of a patent foramen ovale. LHC: (07/10) CONCLUSIONS: 1. Right coronary artery system dominance. 2. Multivessel coronary artery disease. 3. Prox LAD 70% calcified lesion. 4. 3rd OM 95% calcified lesion. 5. Mid RCA 80% calcified lesion; Distal RCA diffuse 90% calcified lesion. 6. Preserved LV systolic function. Procedure/Surgeon: Dr. Atkins Frontliner/Anesthesia: Dr. Johnson Out of OR Time (document on ventilator card): 7733 OR Course/Issues: N/a CPB time: N/a Cross clamp time: N/a Circ arrest time: N/a Echo Pre/Post: 60-65%, normal function Chest Tubes/Drains: Right and left pleural, mediastinal Temporary wires location/setting: V wires, backup @ 60 Fluids Crystalloid: 2L Colloid: 750 Cellsaver: 240 Products: n/a EBL: 250 UOP: 400 Anesthesia Intubation: Mac 4, grade 2 view. 7.m 23cm @ lip Intravenous Access: RIJ with minimac, L brachial art line, R hand 20g PIV AICD: n/a PPM: n/a Regional anesthesia: B/L SAP blocks Benzodiazepine dose/last administration: 2mg midazolam total Opioid dose/last administration: 500 mcg fentanyl total NMB dose/last administration: 150mg rocuronium total TOF/ reversal given: yes Antibiotic time: 4g total, 905 Temperature on admission to ICU: 97.2 Past Medical History: Diagnosis Date CAD (coronary artery disease) Depression Hemiplegia (Multi) r arm/leg HLD (hyperlipidemia) HTN (hypertension) Smoker Stroke (cerebrum) (Multi) Past Surgical History: Procedure Laterality Date CARDIAC CATHETERIZATION N/A 07/11/2024 Procedure: Left Heart Cath, With LV; Surgeon: Emanuel Kwong MD; Location: [facility] Cardiac Poker Machine Attendant; Service: Cardiovascular; Laterality: N/A; CARDIAC CATHETERIZATION N/A 07/11/2024 Procedure: Left Ventriculography; Surgeon: Emanuel Kwong MD; Location: [facility] Cardiac Poker Machine Attendant; Service: Cardiovascular; Laterality: N/A; Medications Prior to Admission Medication Sig Dispense Refill Last Dose/Taking acetaminophen (Tylenol) 325 mg tablet Take 2 tablets (650 mg) by mouth every 4 hours if needed for mild pain (1 - 3). 09/26/2024 aspirin 81 mg EC tablet Take 1 tablet (81 mg) by mouth once daily. 09/26/2024 bisacodyl (Dulcolax, bisacodyl,) 10 mg suppository Insert 1 suppository (10 mg) into the rectum once daily as needed for constipation. 09/26/2024 clopidogrel (Plavix) 75 mg tablet Take 1 tablet (75 mg) by mouth once daily. 10/01/2023 gabapentin (Neurontin) 100 mg capsule Take 2 capsules (200 mg) by mouth 2 times a day. 09/26/2024 lisinopril 5 mg tablet Take 1 tablet (5 mg) by mouth once daily. 09/26/2024 magnesium hydroxide (Milk Of Magnesia Concentrated) 2,400 mg/10 mL suspension suspension Take 30 mL by mouth every 6 hours if needed for constipation. Past Week nitroglycerin (Nitrodur) 0.1 mg/hr patch Place 1 patch on the skin once daily. 09/27/2024 Morning nystatin (Mycostatin) 100,000 unit/gram powder Apply 1 Application topically 2 times a day as needed. 09/26/2024 sennosides-docusate sodium (Senna Plus) 8.6-50 mg tablet Take 2 tablets by mouth every 12 hours if needed for constipation. 09/26/2024 sertraline (Zoloft) 50 mg tablet Take 1 tablet (50 mg) by mouth once daily. 09/26/2024 atorvastatin (Lipitor) 40 mg tablet Take 1 tablet (40 mg) by mouth once daily at bedtime. 30 tablet 0 [] chlorhexidine (Hibiclens) 4 % external liquid Apply 1 Application topically 2 times a day for 5 days. Use per CPM/PAT provided instructions 473 mL 0 [] chlorhexidine (Peridex) 0.12 % solution Use 15 mL in the mouth or throat if needed for wound care for up to 2 days. Swish and spit the night before and morning of surgery. 120 mL 0 metoprolol succinate XL (Toprol-XL) 25 mg 24 hr tablet Take 1 tablet (25 mg) by mouth once daily. Do not crush or chew. 30 tablet 0 oxymetazoline (Afrin) 0.05 % nasal spray Administer 2 sprays into each nostril every 12 hours if needed for congestion for up to 3 days. Do not use for more than 3 days. 30 mL 0 Patient has no known allergies. Social History Tobacco Use Smoking status: Former Types: Cigarettes Smokeless tobacco: Former Types: Chew Substance Use Topics Alcohol use: Yes Comment: occasional Drug use: Never No family history on file. Review of Systems: Intubated, sedated Objective Vitals: Most Recent: Vitals: 09/27/24 0645 BP: (!) 182/103 Pulse: 71 Resp: 16 Temp: 36.3 C (97.3 F) SpO2: 94% 24hr Min/Max: Temp Min: 36.3 C (97.3 F) Max: 36.3 C (97.3 F) Pulse Min: 71 Max: 71 BP Min: 182/103 Max: 182/103 Resp Min: 16 Max: 16 SpO2 Min: 94 % Max: 94 % I/O: No intake/output data recorded. LDA: CVC 09/27/24 Double lumen Right Internal jugular (Active) Placement Date/Time: 09/27/24 (c) 0859 Hand Hygiene Performed Prior to CVC Insertion: Yes Site Prep: Chlorhexidine Site Prep Agent has Completely Dried Before Insertion: Yes All 5 Sterile Barriers Used (Gloves, Gown, Cap, Mask, Large Sterile Shannan... Number of days: 0 Arterial Line 09/27/24 Left Brachial (Active) Placement Date/Time: 09/27/24 (c) 0834 Size: 20 G Orientation: Left Location: Brachial Securement Method: Transparent dressing Patient Tolerance: Tolerated well Number of days: 0 ETT 7.5 mm (Active) Placement Date/Time: 09/27/24 (c) 0842 Mask Ventilation: Vent by mask Technique: Direct laryngoscopy ETT Type: ETT - single Single Lumen Tube Size: 7.5 mm Cuffed: Yes Laryngoscope: Omar Blade Size: 4 Location: Oral Grade View: Partial v... Number of days: 0 Urethral Catheter Temperature probe 14 Fr. (Active) Placement Date/Time: 09/27/24 0847 Placed by: [employer] Zhou Hand Hygiene Completed: Yes Catheter Type: Temperature probe Tube Size (Fr.): 14 Fr. Catheter Balloon Size: 10 mL Urine Returned: Yes Number of days: 0 Physical Exam: Constitutional: Intubated and sedated on mechanical ventilation in NAD Neuro: History of CVA with right sided hemiplegia PERRL CV: RRR. S1S2. SR on monitor. AV wires set back up VVI @ 60 Pulm: CTAB on mechanical ventilation. Right pleural, left pleural, mediastinal chest tube. CT's with appropriate serosang output and no airleak. : yellow urine via vitale GI: S/ND/NT. OGT in place with bilious output. Extremities: NV exam intact x 4. No edema. Skin: WDI. Postop dressings intact. Chest tube dressings intact. Psych: ALEXANDRU, sedated Lab Review: Results from last 7 days Lab Units 09/26/24 0613 PROTEIN TOTAL g/dL 5.9* BILIRUBIN TOTAL mg/dL 0.6 ALK PHOS U/L 334* ALT U/L 87* AST U/L 39 Results from last 7 days Lab Units 09/27/24 1242 POCT PH, ARTERIAL pH 7.29* POCT PCO2, ARTERIAL mm Hg 50* POCT PO2, ARTERIAL mm Hg 372* POCT HCO3 CALCULATED, ARTERIAL mmol/L 24.0 POCT BASE EXCESS, ARTERIAL mmol/L -2.9* Most recent labs and imaging reviewed. Daily Risk Screen Intubated: AC/VC @ FiO2 Central line: [facility] Vitale: I/O's Assessment/Plan Assessment: Cisco Saini is a 68 y.o. male with hx of HTN, HLD, CAD, depression, recent left lacunar infarct with right hemiplegia. During his hospitalization he had a NSTEMI and cath demonstrated, proximal LAD, OM and RCA disease and PFO and is recommended CABGx3 and PFO repair with Dr. Atkins 09/27 Plan: NEURO: PMH of CVA with right hemiplegia, Depression. Patient is intubated and sedated on propofol infusion. Acute post operative pain. --> - Serial neuro and pain assessments - Continue propofol until NMB reversal, then daily sedation vacation at minimum - Scheduled Tylenol - PRN oxycodone - PRN dilaudid for pain - PT Consult, OOB to chair as tolerated, chair position if not tolerated - CAM ICU score qshift - Sleep/wake cycle hygiene - Hold home gabapentin, zoloft CV: Patient has a history of HTN, HLD, CAD, NSTEMI. Is now status post, Off Pump CABG x 3; HURTADO- LAD, SVG-OM-PDA. Pre/Post EF: 60-65% with normal function pre; Normal LV/RV function post. Arrived to CTICU on levo 0.06 and propofol. A/V epicardial wires set backup @ 60.--> - Maintain systolic goal >120 (permissive HTN for prior stroke) - Mixed venous and CI Q4H - Volume resuscitate as clinically indicated - Maintain epicardial wires set VVI @ 60 - If CABG is 2/2 STEMI/unstable angina, will receive Plavix POD2 - Start statin - Hold home lisinopril, metoprolol, nitroglycerin patch PULM: No history of pulmonary disease. Currently intubated on ventilator. Chest tubes R pleural, L pleural and mediastinal.--> - F/u post op CXR - Once reversed, wean ventilator settings towards CPAP & extubation - Wean FiO2 maintaining SpO2 >92%. - IS q1h and OOB to chair when extubated - Chest tubes to wall suction. GI: No significant PMH. OG in place.--> - Continue PPI until extubated - NPO, will perform bedside swallow eval post extubation - Colace/senna BID and miralax BID : No history of renal disease, baseline creatinine 1.1. Creatinine stable post-op. Vitale in place and making adequate UOP. --> - Continue vitale catheter for strict I/Os. - Goal UOP 0.5ml/kg/hr - RFP as clinically indicated - Replete electrolytes per [facility] protocol ENDO: No significant PMH A1c: 5.8--> - Maintain BG <180, insulin per [facility] protocol HEME: Acute blood loss anemia and thrombocytopenia.--> - Monitor drain output volume and characteristics - CBC, coags, and fibrinogen post op and as clinically indicated - Start ASA 6hrs post-op for CABG - If CABG is 2/2 STEMI/unstable angina, will receive Plavix POD2 - SQH tomorrow - SCDs for DVT prophylaxis. - Last type and screen: 09/27 ID: Afebrile, no current indications of infection. MRSA negative.--> - Trend temp q4h - Periop cefazolin x 48hrs Skin: No active skin issues. - preventative Mepilex dressings in place on sacrum and heels - change preventative Mepilex weekly or more frequently as indicated (when moist/soiled) - every shift skin assessment per nursing and weekly ICU skin rounds - moisture barrier to be applied with susanne care - active skin problems addressed with nursing on daily rounds Proph: SCDs PPI G: Line Right IJ MAC w Minimac placed 09/27 Left brachial a-line placed 09/27 F: Family: will update at bedside postoperatively. A,B,C,D,E,F,G: reviewed Dispo: CTICU care for now. CTICU TEAM PHONE [id number] Jamison Cheney MD PGY-1 Cosigned by Daisy Serna MD at 09/28/2024 10:27 AM EST H&P reviewed. The patient was examined and there are no changes to the H&P. Cosigned by Elisabeth Atkins MD at 10/02/2024 2:52 PM EST Source Note - Gene Yap MD - 09/19/2024 7:45 AM EDT Images from the original note were not included. [facility] Evaluation Name: Cisco Saini (Cisco Saini) /Age: 111/22/1955/68 y.o. In-Person Chief Complaint: preop eval for CABG x3 with Dr Atkins on 09/25 HPI Patient is a 68 year old Male with PMH s/f HTN, HLD, CAD, Depression, CVA in 07/15, Dysarthria, and Hemiplegia. He is scheduled for CABG x3 with Dr Atkins on 09/25. He is seen today at [facility] for preop eval and optimization prior to surgery. No past medical history on file. Past Surgical History: Procedure Laterality Date CARDIAC CATHETERIZATION N/A 07/11/2024 Procedure: Left Heart Cath, With LV; Surgeon: Emanuel Kwong MD; Location: [facility] Cardiac Poker Machine Attendant; Service: Cardiovascular; Laterality: N/A; CARDIAC CATHETERIZATION N/A 07/11/2024 Procedure: Left Ventriculography; Surgeon: Emanuel Kwong MD; Location: [facility] Cardiac Poker Machine Attendant; Service: Cardiovascular; Laterality: N/A; Patient Sexual activity questions deferred to the physician. No family history on file. No Known Allergies Prior to Admission medications Medication Sig Start Date End Date Taking? Authorizing Provider acetaminophen (Tylenol) 325 mg tablet Take 2 tablets (650 mg) by mouth every 4 hours if needed for mild pain (1 - 3). Historical ProviderMD aspirin 81 mg EC tablet Take 1 tablet (81 mg) by mouth once daily. Historical ProviderMD atorvastatin (Lipitor) 40 mg tablet Take 1 tablet (40 mg) by mouth once daily at bedtime. 07/13/24 09/11/24 Candelario Montana MD bisacodyl (Dulcolax, bisacodyl,) 10 mg suppository Insert 1 suppository (10 mg) into the rectum once daily as needed for constipation. Historical Provider, chlorhexidine (Hibiclens) 4 % external liquid Apply 1 Application topically 2 times a day for 5 days. Use per CPM/PAT provided instructions 09/19/24 09/24/24 Gene Yap MD chlorhexidine (Peridex) 0.12 % solution Use 15 mL in the mouth or throat if needed for wound care for up to 2 days. Swish and spit the night before and morning of surgery. 09/19/24 09/21/24 Gene Yap MD clopidogrel (Plavix) 75 mg tablet Take 1 tablet (75 mg) by mouth once daily. Historical Provider, gabapentin (Neurontin) 100 mg capsule Take 2 capsules (200 mg) by mouth 2 times a day. Historical Provider, lisinopril 5 mg tablet Take 1 tablet (5 mg) by mouth once daily. Historical ProviderMD magnesium hydroxide (Milk Of Magnesia Concentrated) 2,400 mg/10 mL suspension suspension Take 30 mL by mouth every 6 hours if needed for constipation. Historical ProviderMD metoprolol succinate XL (Toprol-XL) 25 mg 24 hr tablet Take 1 tablet (25 mg) by mouth once daily. Do not crush or chew. 07/14/24 09/11/24 Candelario Montana MD nitroglycerin (Nitrodur) 0.1 mg/hr patch Place 1 patch on the skin once daily. Historical ProviderMD nystatin (Mycostatin) 100,000 unit/gram powder Apply 1 Application topically 2 times a day as needed. Historical ProviderMD oxymetazoline (Afrin) 0.05 % nasal spray Administer 2 sprays into each nostril every 12 hours if needed for congestion for up to 3 days. Do not use for more than 3 days. 07/13/24 09/11/24 Candelario Montana MD sennosides-docusate sodium (Senna Plus) 8.6-50 mg tablet Take 2 tablets by mouth every 12 hours if needed for constipation. Historical Provider, sertraline (Zoloft) 50 mg tablet Take 1 tablet (50 mg) by mouth once daily. Historical Provider, MD LOVELACE ROS: Constitutional: neg Neuro/Psych: CVA in 07/15 - R sided hemiplegia with improvement since working with PT at rehab. RUE>RLE weakness. Sensation in tact. Eyes: neg Ears: neg Nose: neg Mouth: Dysarthric Throat: neg Neck: neg Cardio: neg Respiratory: neg Endocrine: neg GI: neg : neg Musculoskeletal: arthralgias myalgias Hematologic: Skin: neg Physical Exam Vitals and nursing note reviewed. Physical exam within normal limits. Constitutional: Appearance: He is ill-appearing. HENT: Head: Normocephalic. Nose: Nose normal. Mouth/Throat: Mouth: Mucous membranes are moist. Eyes: Pupils: Pupils are equal, round, and reactive to light. Cardiovascular: Rate and Rhythm: Normal rate and regular rhythm. Pulses: Normal pulses. Heart sounds: Normal heart sounds. Pulmonary: Effort: Pulmonary effort is normal. Breath sounds: Normal breath sounds. Abdominal: General: Bowel sounds are normal. Palpations: Abdomen is soft. Musculoskeletal: Cervical back: Normal range of motion. Comments: R sided hemiplegia with RUE> LUE weakness. Sensation intact. DTRs intact. Skin: General: Skin is warm. Capillary Refill: Capillary refill takes less than 2 seconds. Neurological: Mental Status: He is alert and oriented to person, place, and time. Mental status is at baseline. Psychiatric: Mood and Affect: Mood normal. Behavior: Behavior normal. Thought Content: Thought content normal. Judgment: Judgment normal. PAT AIRWAY: Airway: Mallampati:: I TM distance:: >3 FB Neck ROM:: Full Visit Vitals BP 102/69 Pulse 80 Temp 36 C (96.8 F) DASI Risk Score Flowsheet Row Pre-Admission Testing from 09/19/2024 in [facility] Can you take care of yourself (eat, dress, bathe, or use toilet)? 2.75 filed at 09/19/2024 0753 Can you walk indoors, such as around your house? 1.75 filed at 09/19/2024 0753 Can you walk a block or two on level ground? 0 filed at 09/19/2024 0753 Can you climb a flight of stairs or walk up a hill? 0 filed at 09/19/2024 0753 Can you run a short distance? 0 filed at 09/19/2024 0753 Can you do light work around the house like dusting or washing dishes? 0 filed at 09/19/2024 0753 Can you do moderate work around the house like vacuuming, sweeping floors or carrying groceries? 0 filed at 09/19/2024 075 Can you do heavy work around the house like scrubbing floors or lifting and moving heavy furniture? 0 filed at 09/19/2024 075 Can you do yard work like raking leaves, weeding or pushing a mower? 0 filed at 09/19/2024 075 Can you have sexual relations? 0 filed at 09/19/2024 075 Can you participate in moderate recreational activities like golf, bowling, dancing, doubles tennis or throwing a baseball or football? 0 filed at 09/19/2024 075 Can you participate in strenous sports like swimming, singles tennis, football, basketball, or skiing? 0 filed at 09/19/2024 075 DASI SCORE 4.5 filed at 09/19/2024 075 METS Score (Will be calculated only when all the questions are answered) 3.3 filed at 09/19/2024 0753 Caprini DVT Assessment Flowsheet Row ED to Hosp-Admission (Discharged) from 07/07/2024 in [facility] 3 with Candelario Montana MD and Virginia Hernandez DO DVT Score 5 filed at 07/11/2024 0957 BMI 31-40 (Obesity) filed at 07/11/2024 0957 RETIRED: Age 60-75 years filed at 07/11/2024 0957 Modified Frailty Index No data to display CHADS2 Stroke Risk Current as of about an hour ago 5.9% 3 to 100%: High Risk 2 to < 3%: Medium Risk 0 to < 2%: Low Risk Last Change: This score determines the patient's risk of having a stroke if the patient has atrial fibrillation. Points Metrics 0 Has Congestive Heart Failure: No Patients with congestive heart failure get 1 point. Current as of about an hour ago 1 Has Hypertension: Yes Patients with hypertension get 1 point. Current as of about an hour ago 0 Age: 68 Patients who are 75 years of age or older get 1 point. Current as of about an hour ago 0 Has Diabetes Excluding Gestational Diabetes: No Patients with diabetes get 1 point. Current as of about an hour ago 2 Had Stroke: Yes Had TIA: Yes Had Thromboembolism: No Patients who have had a stroke, TIA, or thromboembolism get 2 points. Current as of about an hour ago Revised Cardiac Risk Index No data to display Apfel Simplified Score No data to display Risk Analysis Index Results This Encounter No data found in the last 10 encounters. Stop Bang Score Flowsheet Row Pre-Admission Testing from 09/19/2024 in [facility] Do you snore loudly? 0 filed at 09/19/2024752 Do you often feel tired or fatigued after your sleep? 0 filed at 09/19/2024752 Has anyone ever observed you stop breathing in your sleep? 0 filed at 09/19/2024752 Do you have or are you being treated for high blood pressure? 1 filed at 09/19/2024752 Recent BMI (Calculated) 28.7 filed at 09/19/2024752 Is BMI greater than 35 kg/m2? 0=No filed at 09/19/2024752 Age older than 50 years old? 1=Yes filed at 09/19/2024752 Is your neck circumference greater than 17 inches (Male) or 16 inches (Female)? 0 filed at 09/19/2024752 Gender - Male 1=Yes filed at 09/19/2024752 STOP-BANG Total Score 3 filed at 09/19/2024752 Prodigy: High Risk Total Score: 16 Prodigy Age Score Prodigy Gender Score ARISCAT Score for Postoperative Pulmonary Complications No data to display Varghese Perioperative Risk for Myocardial Infarction or Cardiac Arrest (ANGEL LUIS) No data to display Results for orders placed or performed in visit on 09/19/24 (from the past 24 hours) Comprehensive Metabolic Panel Result Value Ref Range Glucose 60 (L) 74 - 99 mg/dL Sodium 140 136 - 145 mmol/L Potassium 4.1 3.5 - 5.3 mmol/L Chloride 103 98 - 107 mmol/L Bicarbonate 29 21 - 32 mmol/L Anion Gap 12 10 - 20 mmol/L Urea Nitrogen 14 6 - 23 mg/dL Creatinine 1.02 0.50 - 1.30 mg/dL eGFR 80 >60 mL/min/1.73m*2 Calcium 9.7 8.6 - 10.6 mg/dL Albumin 4.1 3.4 - 5.0 g/dL Alkaline Phosphatase 252 (H) 33 - 136 U/L Total Protein 7.0 6.4 - 8.2 g/dL AST 24 9 - 39 U/L Bilirubin, Total 0.5 0.0 - 1.2 mg/dL ALT 56 (H) 10 - 52 U/L C-Reactive Protein Result Value Ref Range C-Reactive Protein 1.04 (H) <1.00 mg/dL CBC and Auto Differential Result Value Ref Range WBC 10.8 4.4 - 11.3 x10*3/uL nRBC 0.0 0.0 - 0.0 /100 WBCs RBC 5.00 4.50 - 5.90 x10*6/uL Hemoglobin 15.1 13.5 - 17.5 g/dL Hematocrit 46.4 41.0 - 52.0 % MCV 93 80 - 100 fL MCH 30.2 26.0 - 34.0 pg MCHC 32.5 32.0 - 36.0 g/dL RDW 12.6 11.5 - 14.5 % Platelets 343 150 - 450 x10*3/uL Neutrophils % 69.4 40.0 - 80.0 % Immature Granulocytes %, Automated 0.5 0.0 - 0.9 % Lymphocytes % 12.7 13.0 - 44.0 % Monocytes % 10.6 2.0 - 10.0 % Eosinophils % 6.1 0.0 - 6.0 % Basophils % 0.7 0.0 - 2.0 % Neutrophils Absolute 7.51 1.20 - 7.70 x10*3/uL Immature Granulocytes Absolute, Automated 0.05 0.00 - 0.70 x10*3/uL Lymphocytes Absolute 1.38 1.20 - 4.80 x10*3/uL Monocytes Absolute 1.15 (H) 0.10 - 1.00 x10*3/uL Eosinophils Absolute 0.66 0.00 - 0.70 x10*3/uL Basophils Absolute 0.08 0.00 - 0.10 x10*3/uL Coagulation Screen Result Value Ref Range Protime 11.1 9.8 - 12.8 seconds INR 1.0 0.9 - 1.1 aPTT 29 27 - 38 seconds Type And Screen Result Value Ref Range ABO TYPE A Rh TYPE POS ANTIBODY SCREEN NEG Bilirubin, Direct Result Value Ref Range Bilirubin, Direct 0.1 0.0 - 0.3 mg/dL Assessment and Plan: Patient is a 68 year old Male with PMH s/f HTN, HLD, CAD, Depression, CVA in 07/15, Dysarthria, and Hemiplegia. He is scheduled for CABG x3 with Dr Atkins on 09/25. He is seen today at [facility] for preop eval and optimization prior to surgery. Neuro: Depression - on sertraline, Patient was diagnosed with L thalamic stroke with residual R sided hemiplegia in June of this year. Was started on ASA and Plavix. Discussed with Dr Atkins and Dr Hargrove re Plavix hold perioperatively - holding 7 days prior to surgery. Neurology will reassess if patient needs to be restarted on Plavix thereafter. Patient is at increased risk for perioperative CVA secondary to previous CVA/TIA, cardiac disease, perioperative interruption of antithrombotic, HTN, increased age, hypercoagulable state, operative time > 2.5 hours, cardiac surgery US Carotids scheduled tomorrow - will follow up on results and ensure patient gets this done as he is at high risk given we are within the 9 month period since his recent CVA in June 2024 HEENT: No HEENT diagnosis or significant findings on chart review or clinical presentation and evaluation. No further preoperative testing/intervention indicated at this time. Cardiovascular: CAD, HTN, HLD - on ASA, Atorvastatin, Plavix (holding 7 days prior to surgery), Metoprolol, NTG, Lisinopril. No further preoperative testing or intervention is indicated at this time. Scheduled for CABG x3 with Dr Atkins on 09/25. METS: 3.3 RCRI: 3 points, 15% risk for postoperative MACE ANGEL LUIS: 1.6% risk for 30 day postoperative MACE EKG - 07/15 - NSR Echo: Transthoracic Echo (TTE) Complete 07/10/2024 CONCLUSIONS: 1. The left ventricular systolic function is normal, with a visually estimated ejection fraction of 60-65%. 2. Spectral Doppler shows an impaired relaxation pattern of left ventricular diastolic filling. 3. There is normal right ventricular global systolic function. 4. Bubble study is positive for a right to left shunt, suggestive of a patent foramen ovale. Cath: Cardiac Catheterization Procedure 07/11/2024 Coronary Lesion Summary: Vessel Stenosis Vessel Segment LAD 70% stenosis proximal 1st Diagonal 90% stenosis proximal Circumflex 50% stenosis mid OM 3 95% stenosis proximal Ramus 50% stenosis proximal RCA 90% stenosis distal Pulmonary: No pulmonary diagnosis, however patient is at increased risk of perioperative complications secondary to age > 60, site of surgery, major surgery, duration of surgery > 2 hours, types of anesthetic Stop Bang score is 3 placing patient at moderate risk for KEVIN ARISCAT: >45 points, 42.1% risk of in-hospital postoperative pulmonary complication PRODIGY: High risk for opioid induced respiratory depression Pumonary toilet education discussed, patient also provided deep breathing exercises and incentive spirometry educational handout Renal: No renal diagnosis, however patient is at increase risk for perioperative renal complications secondary to Age equal to or greater than 56, HTN, cerebral vascular disease, cardiac surgery, use of an denia, arb, or NSAID Pt at High risk for perioperative TAMARA based on Dynamic Predictive Scoring Tool for Perioperative TAMARA Endocrine: No endocrine diagnosis or significant findings on chart review or clinical presentation and evaluation. No further testing or intervention is indicated at this time. Hematologic: No hematologic diagnosis, however patient is at an increased risk for DVT Caprini Score 9, patient at High risk for perioperative DVT. Patient provided with VTE education/handout. Gastrointestinal: No GI diagnosis or significant findings on chart review or clinical presentation and evaluation. Eat-10 score 0 Apfel 2 Infectious disease: No infectious diagnosis or significant findings on chart review or clinical presentation and evaluation. Prescription provided for CHG body wash and dental rinse. CHG use instructions reviewed and provided to patient. Staph screen collected Musculoskeletal: No diagnosis or significant findings on chart review or clinical presentation and evaluation. Anesthesia/Airway: No anesthesia complications Medication instructions and NPO guidelines reviewed with the patient. All questions or concerns discussed and addressed. Patient seen and staffed with Dr. Pollack Cosigned by Juju Pollack MD at 09/19/2024 3:44 PM EDT documented in this encounter [facility] Work Phone: 09-27-2024 Consult note Formatting of th is note is different from the original. Cisco Saini is a 68 y.o. year old male patient who presents for Procedure(s): Off Pump CABG x 3; HURTADO- LAD, SVG-OM-PDA with Elisabeth Atkins MD on 09/27/2024. Acute Pain consulted for assistance with pain control. Anticipated Postop Pain Issues - Palliative: typically relieved with IV analgesics and regional local anesthetics Provocative: typically with movement Quality: typically burning and aching Radiation: typically none Severity: typically severe 8-10/10 Timing: typically constant Past Medical History: Diagnosis Date CAD (coronary artery disease) Depression Hemiplegia (Multi) r arm/leg HLD (hyperlipidemia) HTN (hypertension) Smoker Stroke (cerebrum) (Multi) Past Surgical History: Procedure Laterality Date CARDIAC CATHETERIZATION N/A 07/11/2024 Procedure: Left Heart Cath, With LV; Surgeon: Emanuel Kwong MD; Location: [facility] Cardiac Poker Machine Attendant; Service: Cardiovascular; Laterality: N/A; CARDIAC CATHETERIZATION N/A 07/11/2024 Procedure: Left Ventriculography; Surgeon: Emanuel Kwong MD; Location: [facility] Cardiac Poker Machine Attendant; Service: Cardiovascular; Laterality: N/A; No family history on file. Social History Socioeconomic History Marital status: Single Spouse name: Not on file Number of children: Not on file Years of education: Not on file Highest education level: Not on file Occupational History Not on file Tobacco Use Smoking status: Former Types: Cigarettes Smokeless tobacco: Former Types: Chew Substance and Sexual Activity Alcohol use: Yes Comment: occasional Drug use: Never Sexual activity: Defer Other Topics Concern Not on file Social History Narrative Not on file Social Drivers of Health Financial Resource Strain: Patient Unable To Answer (09/27/2024) Overall Financial Resource Strain (CARDIA) Difficulty of Paying Living Expenses: Patient unable to answer Recent Concern: Financial Resource Strain - Medium Risk (07/08/2024) Overall Financial Resource Strain (CARDIA) Difficulty of Paying Living Expenses: Somewhat hard Food Insecurity: Not on file Transportation Needs: Patient Unable To Answer (09/27/2024) PRAPARE - Transportation Lack of Transportation (Medical): Patient unable to answer Lack of Transportation (Non-Medical): Patient unable to answer Physical Activity: Not on file Stress: Not on file Social Connections: Not on file Intimate Partner Violence: Not on file Housing Stability: Patient Unable To Answer (09/27/2024) Housing Stability Vital Sign Unable to Pay for Housing in the Last Year: Patient unable to answer Number of Times Moved in the Last Year: 0 Homeless in the Last Year: Patient unable to answer No Known Allergies Review of Systems Unable to obtain 12 point review of systems as patient is intubated and sedated Physical Exam: Constitutional: sedated Eyes: clear sclera Head/Neck: No apparent injury, trachea midline Respiratory/Thorax: intuabted Cardiovascular: no pitting edema Gastrointestinal: Nondistended Musculoskeletal: sedated Extremities: no clubbing Neurological: intubated and sedated Psychological: intubated and sedated Results for orders placed or performed during the hospital encounter of 09/27/24 (from the past 24 hours) Blood Gas Arterial Full Panel Unsolicited Result Value Ref Range POCT pH, Arterial 7.36 (L) 7.38 - 7.42 pH POCT pCO2, Arterial 50 (H) 38 - 42 mm Hg POCT pO2, Arterial 264 (H) 85 - 95 mm Hg POCT SO2, Arterial 100 94 - 100 % POCT Oxy Hemoglobin, Arterial 97.8 94.0 - 98.0 % POCT Hematocrit Calculated, Arterial 40.0 (L) 41.0 - 52.0 % POCT Sodium, Arterial 134 (L) 136 - 145 mmol/L POCT Potassium, Arterial 5.1 3.5 - 5.3 mmol/L POCT Chloride, Arterial 103 98 - 107 mmol/L POCT Ionized Calcium, Arterial 1.18 1.10 - 1.33 mmol/L POCT Glucose, Arterial 114 (H) 74 - 99 mg/dL POCT Lactate, Arterial 0.8 0.4 - 2.0 mmol/L POCT Base Excess, Arterial 1.9 -2.0 - 3.0 mmol/L POCT HCO3 Calculated, Arterial 28.2 (H) 22.0 - 26.0 mmol/L POCT Hemoglobin, Arterial 13.4 (L) 13.5 - 17.5 g/dL POCT Anion Gap, Arterial 8 (L) 10 - 25 mmo/L Patient Temperature 37.0 degrees Celsius FiO2 100 % Coox Panel, Arterial Unsolicited Result Value Ref Range POCT Hemoglobin, Arterial 13.4 (L) 13.5 - 17.5 g/dL POCT Oxy Hemoglobin, Arterial 97.8 94.0 - 98.0 % POCT Carboxyhemoglobin, Arterial 0.7 % POCT Methemoglobin, Arterial 1.0 0.0 - 1.5 % POCT Deoxy Hemoglobin, Arterial 0.5 0.0 - 5.0 % Blood Gas Arterial Full Panel Unsolicited Result Value Ref Range POCT pH, Arterial 7.39 7.38 - 7.42 pH POCT pCO2, Arterial 42 38 - 42 mm Hg POCT pO2, Arterial 175 (H) 85 - 95 mm Hg POCT SO2, Arterial 99 94 - 100 % POCT Oxy Hemoglobin, Arterial 98.1 (H) 94.0 - 98.0 % POCT Hematocrit Calculated, Arterial 41.0 41.0 - 52.0 % POCT Sodium, Arterial 133 (L) 136 - 145 mmol/L POCT Potassium, Arterial 5.5 (H) 3.5 - 5.3 mmol/L POCT Chloride, Arterial 103 98 - 107 mmol/L POCT Ionized Calcium, Arterial 1.14 1.10 - 1.33 mmol/L POCT Glucose, Arterial 130 (H) 74 - 99 mg/dL POCT Lactate, Arterial 0.9 0.4 - 2.0 mmol/L POCT Base Excess, Arterial 0.3 -2.0 - 3.0 mmol/L POCT HCO3 Calculated, Arterial 25.4 22.0 - 26.0 mmol/L POCT Hemoglobin, Arterial 13.5 13.5 - 17.5 g/dL POCT Anion Gap, Arterial 10 10 - 25 mmo/L Patient Temperature 37.0 degrees Celsius FiO2 100 % Blood Gas Arterial Full Panel Unsolicited Result Value Ref Range POCT pH, Arterial 7.38 7.38 - 7.42 pH POCT pCO2, Arterial 42 38 - 42 mm Hg POCT pO2, Arterial 356 (H) 85 - 95 mm Hg POCT SO2, Arterial 99 94 - 100 % POCT Oxy Hemoglobin, Arterial 98.1 (H) 94.0 - 98.0 % POCT Hematocrit Calculated, Arterial 39.0 (L) 41.0 - 52.0 % POCT Sodium, Arterial 133 (L) 136 - 145 mmol/L POCT Potassium, Arterial 5.3 3.5 - 5.3 mmol/L POCT Chloride, Arterial 103 98 - 107 mmol/L POCT Ionized Calcium, Arterial 1.09 (L) 1.10 - 1.33 mmol/L POCT Glucose, Arterial 137 (H) 74 - 99 mg/dL POCT Lactate, Arterial 1.3 0.4 - 2.0 mmol/L POCT Base Excess, Arterial -0.4 -2.0 - 3.0 mmol/L POCT HCO3 Calculated, Arterial 24.8 22.0 - 26.0 mmol/L POCT Hemoglobin, Arterial 13.1 (L) 13.5 - 17.5 g/dL POCT Anion Gap, Arterial 11 10 - 25 mmo/L Patient Temperature 37.0 degrees Celsius FiO2 100 % Coox Panel, Arterial Unsolicited Result Value Ref Range POCT Hemoglobin, Arterial 13.1 (L) 13.5 - 17.5 g/dL POCT Oxy Hemoglobin, Arterial 98.1 (H) 94.0 - 98.0 % POCT Carboxyhemoglobin, Arterial 0.4 % POCT Methemoglobin, Arterial 0.9 0.0 - 1.5 % POCT Deoxy Hemoglobin, Arterial 0.6 0.0 - 5.0 % Blood Gas Arterial Full Panel Unsolicited Result Value Ref Range POCT pH, Arterial 7.33 (L) 7.38 - 7.42 pH POCT pCO2, Arterial 45 (H) 38 - 42 mm Hg POCT pO2, Arterial 433 (H) 85 - 95 mm Hg POCT SO2, Arterial 100 94 - 100 % POCT Oxy Hemoglobin, Arterial 98.6 (H) 94.0 - 98.0 % POCT Hematocrit Calculated, Arterial 38.0 (L) 41.0 - 52.0 % POCT Sodium, Arterial 134 (L) 136 - 145 mmol/L POCT Potassium, Arterial 5.4 (H) 3.5 - 5.3 mmol/L POCT Chloride, Arterial 102 98 - 107 mmol/L POCT Ionized Calcium, Arterial 1.26 1.10 - 1.33 mmol/L POCT Glucose, Arterial 160 (H) 74 - 99 mg/dL POCT Lactate, Arterial 1.5 0.4 - 2.0 mmol/L POCT Base Excess, Arterial -2.4 (L) -2.0 - 3.0 mmol/L POCT HCO3 Calculated, Arterial 23.7 22.0 - 26.0 mmol/L POCT Hemoglobin, Arterial 12.6 (L) 13.5 - 17.5 g/dL POCT Anion Gap, Arterial 14 10 - 25 mmo/L Patient Temperature 37.0 degrees Celsius FiO2 100 % Blood Gas Arterial Full Panel Unsolicited Result Value Ref Range POCT pH, Arterial 7.29 (L) 7.38 - 7.42 pH POCT pCO2, Arterial 50 (H) 38 - 42 mm Hg POCT pO2, Arterial 372 (H) 85 - 95 mm Hg POCT SO2, Arterial 100 94 - 100 % POCT Oxy Hemoglobin, Arterial 98.4 (H) 94.0 - 98.0 % POCT Hematocrit Calculated, Arterial 36.0 (L) 41.0 - 52.0 % POCT Sodium, Arterial 136 136 - 145 mmol/L POCT Potassium, Arterial 4.3 3.5 - 5.3 mmol/L POCT Chloride, Arterial 102 98 - 107 mmol/L POCT Ionized Calcium, Arterial 1.23 1.10 - 1.33 mmol/L POCT Glucose, Arterial 183 (H) 74 - 99 mg/dL POCT Lactate, Arterial 1.7 0.4 - 2.0 mmol/L POCT Base Excess, Arterial -2.9 (L) -2.0 - 3.0 mmol/L POCT HCO3 Calculated, Arterial 24.0 22.0 - 26.0 mmol/L POCT Hemoglobin, Arterial 12.1 (L) 13.5 - 17.5 g/dL POCT Anion Gap, Arterial 14 10 - 25 mmo/L Patient Temperature 37.0 degrees Celsius FiO2 100 % Coox Panel, Arterial Unsolicited Result Value Ref Range POCT Hemoglobin, Arterial 12.1 (L) 13.5 - 17.5 g/dL POCT Oxy Hemoglobin, Arterial 98.4 (H) 94.0 - 98.0 % POCT Carboxyhemoglobin, Arterial 0.4 % POCT Methemoglobin, Arterial 0.9 0.0 - 1.5 % POCT Deoxy Hemoglobin, Arterial 0.4 0.0 - 5.0 % Calcium, Ionized Result Value Ref Range POCT Calcium, Ionized 1.11 1.1 - 1.33 mmol/L Magnesium Result Value Ref Range Magnesium 2.43 (H) 1.60 - 2.40 mg/dL Coagulation Screen Result Value Ref Range Protime 12.8 9.8 - 12.8 seconds INR 1.1 0.9 - 1.1 aPTT 32 27 - 38 seconds Fibrinogen Result Value Ref Range Fibrinogen 436 (H) 200 - 400 mg/dL CBC Result Value Ref Range WBC 14.2 (H) 4.4 - 11.3 x10*3/uL nRBC 0.0 0.0 - 0.0 /100 WBCs RBC 3.82 (L) 4.50 - 5.90 x10*6/uL Hemoglobin 11.6 (L) 13.5 - 17.5 g/dL Hematocrit 34.7 (L) 41.0 - 52.0 % MCV 91 80 - 100 fL MCH 30.4 26.0 - 34.0 pg MCHC 33.4 32.0 - 36.0 g/dL RDW 12.2 11.5 - 14.5 % Platelets 304 150 - 450 x10*3/uL Renal Function Panel Result Value Ref Range Glucose 189 (H) 74 - 99 mg/dL Sodium 137 136 - 145 mmol/L Potassium 4.2 3.5 - 5.3 mmol/L Chloride 101 98 - 107 mmol/L Bicarbonate 22 21 - 32 mmol/L Anion Gap 18 10 - 20 mmol/L Urea Nitrogen 15 6 - 23 mg/dL Creatinine 0.96 0.50 - 1.30 mg/dL eGFR 86 >60 mL/min/1.73m*2 Calcium 8.4 (L) 8.6 - 10.6 mg/dL Phosphorus 4.1 2.5 - 4.9 mg/dL Albumin 3.7 3.4 - 5.0 g/dL Blood Gas Arterial Full Panel Result Value Ref Range POCT pH, Arterial 7.43 (H) 7.38 - 7.42 pH POCT pCO2, Arterial 34 (L) 38 - 42 mm Hg POCT pO2, Arterial 167 (H) 85 - 95 mm Hg POCT SO2, Arterial 100 94 - 100 % POCT Oxy Hemoglobin, Arterial 97.4 94.0 - 98.0 % POCT Hematocrit Calculated, Arterial 37.0 (L) 41.0 - 52.0 % POCT Sodium, Arterial 134 (L) 136 - 145 mmol/L POCT Potassium, Arterial 4.3 3.5 - 5.3 mmol/L POCT Chloride, Arterial 103 98 - 107 mmol/L POCT Ionized Calcium, Arterial 1.10 1.10 - 1.33 mmol/L POCT Glucose, Arterial 183 (H) 74 - 99 mg/dL POCT Lactate, Arterial 1.6 0.4 - 2.0 mmol/L POCT Base Excess, Arterial -1.2 -2.0 - 3.0 mmol/L POCT HCO3 Calculated, Arterial 22.6 22.0 - 26.0 mmol/L POCT Hemoglobin, Arterial 12.3 (L) 13.5 - 17.5 g/dL POCT Anion Gap, Arterial 13 10 - 25 mmo/L Patient Temperature 37.0 degrees Celsius FiO2 50 % POCT GLUCOSE Result Value Ref Range POCT Glucose 170 (H) 74 - 99 mg/dL Blood Gas Arterial Full Panel Result Value Ref Range POCT pH, Arterial 7.38 7.38 - 7.42 pH POCT pCO2, Arterial 40 38 - 42 mm Hg POCT pO2, Arterial 87 85 - 95 mm Hg POCT SO2, Arterial 98 94 - 100 % POCT Oxy Hemoglobin, Arterial 95.9 94.0 - 98.0 % POCT Hematocrit Calculated, Arterial 38.0 (L) 41.0 - 52.0 % POCT Sodium, Arterial 133 (L) 136 - 145 mmol/L POCT Potassium, Arterial 4.6 3.5 - 5.3 mmol/L POCT Chloride, Arterial 102 98 - 107 mmol/L POCT Ionized Calcium, Arterial 1.15 1.10 - 1.33 mmol/L POCT Glucose, Arterial 178 (H) 74 - 99 mg/dL POCT Lactate, Arterial 1.4 0.4 - 2.0 mmol/L POCT Base Excess, Arterial -1.3 -2.0 - 3.0 mmol/L POCT HCO3 Calculated, Arterial 23.7 22.0 - 26.0 mmol/L POCT Hemoglobin, Arterial 12.5 (L) 13.5 - 17.5 g/dL POCT Anion Gap, Arterial 12 10 - 25 mmo/L Patient Temperature 37.0 degrees Celsius FiO2 40 % CBC Result Value Ref Range WBC 11.5 (H) 4.4 - 11.3 x10*3/uL nRBC 0.0 0.0 - 0.0 /100 WBCs RBC 3.48 (L) 4.50 - 5.90 x10*6/uL Hemoglobin 10.5 (L) 13.5 - 17.5 g/dL Hematocrit 31.5 (L) 41.0 - 52.0 % MCV 91 80 - 100 fL MCH 30.2 26.0 - 34.0 pg MCHC 33.3 32.0 - 36.0 g/dL RDW 12.2 11.5 - 14.5 % Platelets 250 150 - 450 x10*3/uL Renal function panel Result Value Ref Range Glucose 165 (H) 74 - 99 mg/dL Sodium 136 136 - 145 mmol/L Potassium 4.3 3.5 - 5.3 mmol/L Chloride 102 98 - 107 mmol/L Bicarbonate 26 21 - 32 mmol/L Anion Gap 12 10 - 20 mmol/L Urea Nitrogen 15 6 - 23 mg/dL Creatinine 0.81 0.50 - 1.30 mg/dL eGFR >90 >60 mL/min/1.73m*2 Calcium 8.2 (L) 8.6 - 10.6 mg/dL Phosphorus 3.8 2.5 - 4.9 mg/dL Albumin 3.8 3.4 - 5.0 g/dL Calcium, Ionized Result Value Ref Range POCT Calcium, Ionized 1.14 1.1 - 1.33 mmol/L Magnesium Result Value Ref Range Magnesium 2.20 1.60 - 2.40 mg/dL Blood Gas Arterial Full Panel Result Value Ref Range POCT pH, Arterial 7.37 (L) 7.38 - 7.42 pH POCT pCO2, Arterial 41 38 - 42 mm Hg POCT pO2, Arterial 79 (L) 85 - 95 mm Hg POCT SO2, Arterial 97 94 - 100 % POCT Oxy Hemoglobin, Arterial 95.1 94.0 - 98.0 % POCT Hematocrit Calculated, Arterial 32.0 (L) 41.0 - 52.0 % POCT Sodium, Arterial 133 (L) 136 - 145 mmol/L POCT Potassium, Arterial 4.4 3.5 - 5.3 mmol/L POCT Chloride, Arterial 103 98 - 107 mmol/L POCT Ionized Calcium, Arterial 1.14 1.10 - 1.33 mmol/L POCT Glucose, Arterial 159 (H) 74 - 99 mg/dL POCT Lactate, Arterial 2.0 0.4 - 2.0 mmol/L POCT Base Excess, Arterial -1.5 -2.0 - 3.0 mmol/L POCT HCO3 Calculated, Arterial 23.7 22.0 - 26.0 mmol/L POCT Hemoglobin, Arterial 10.8 (L) 13.5 - 17.5 g/dL POCT Anion Gap, Arterial 11 10 - 25 mmo/L Patient Temperature 37.0 degrees Celsius FiO2 100 % POCT GLUCOSE Result Value Ref Range POCT Glucose 148 (H) 74 - 99 mg/dL Cisco Saini is a 68 y.o. year old male patient who presents for Procedure(s): Off Pump CABG x 3; HURTADO- LAD, SVG-OM-PDA with Elisabeth Atkins MD on 09/27/2024. Acute Pain consulted for assistance with pain control. Plan: - Bilateral single shot serratus anterior blocks performed intra-operatively 09/27/24 - Pain medications per primary team - Will see on POD1 if inpatient Jake Mercedes PGY1 [place] [phone] ph [phone] Cosigned by Bert Crespo MD at 09/28/2024 10:06 AM EST Associated attestation - Bert Crespo MD - 09/28/2024 10:06 AM EST I saw and evaluated the patient. I personally obtained the coronel portions of the history and physical exam or was physically present for coronel portions performed by the resident/fellow. I reviewed the resident/fellow's documentation and discussed the patient with the resident/fellow. I agree with the resident/fellow's plan as documented in the note. documented in this encounter [facility] Work Phone: 09-11-2024 History of Present illness Narrative Chief Complaint: Cisco Saini is a 68 y.o. year old man here for pre CABG vascular evaluation. HPI Cisco Saini is a 68 y.o. male with hx of HTN, HLD, recent left lacunar infarct with right hemiplegia. During his hospitalization he had a NSTEMI and cath demonstrated, proximal LAD, OM and RCA disease and PFO and is recommended CABG and PFO repair, with plan to undergo surgery with Dr. Atkins. He is currently in rehab working towards improving his mobility and regaining some function in right extremities. He is referred to vascular surgery for eval of possible PAD, carotid stenosis. He denies any new neurologic symptoms such as amaurosis fugax, slurred speech, new weakness, confusion. He denies any claudication or rest pain. He denies any post prandial ABD pain, weight loss, food aversion. He is a former remote smoker, quit decades ago. Not diabetic. Review of Systems All other systems reviewed and negative other than what is already stated in this note. No past medical history on file. Patient Active Problem List Diagnosis CVA (cerebral vascular accident) (Multi) Dysarthria Hemiplegia (Multi) Primary hypertension Pure hypercholesterolemia Depression Nicotine dependence in remission History of stroke with residual deficit Coronary artery disease involving [place] coronary artery of [place] heart Past Surgical History: Procedure Laterality Date CARDIAC CATHETERIZATION N/A 07/11/2024 Procedure: Left Heart Cath, With LV; Surgeon: Emanuel Kwong MD; Location: [facility] Cardiac Poker Machine Attendant; Service: Cardiovascular; Laterality: N/A; CARDIAC CATHETERIZATION N/A 07/11/2024 Procedure: Left Ventriculography; Surgeon: Emanuel Kwong MD; Location: [facility] Cardiac Poker Machine Attendant; Service: Cardiovascular; Laterality: N/A; No family history on file. Social History Tobacco Use Smoking status: Former Types: Cigarettes Smokeless tobacco: Former Types: Chew Substance Use Topics Alcohol use: Yes Comment: occasional Drug use: Never Current Outpatient Medications: acetaminophen (Tylenol) 325 mg tablet, Take 2 tablets (650 mg) by mouth every 4 hours if needed for mild pain (1 - 3)., Disp: , Rfl: aspirin 81 mg EC tablet, Take 1 tablet (81 mg) by mouth once daily., Disp: , Rfl: atorvastatin (Lipitor) 40 mg tablet, Take 1 tablet (40 mg) by mouth once daily at bedtime., Disp: 30 tablet, Rfl: 0 bisacodyl (Dulcolax, bisacodyl,) 10 mg suppository, Insert 1 suppository (10 mg) into the rectum once daily as needed for constipation., Disp: , Rfl: clopidogrel (Plavix) 75 mg tablet, Take 1 tablet (75 mg) by mouth once daily., Disp: , Rfl: gabapentin (Neurontin) 100 mg capsule, Take 2 capsules (200 mg) by mouth 2 times a day., Disp: , Rfl: lisinopril 5 mg tablet, Take 1 tablet (5 mg) by mouth once daily., Disp: , Rfl: magnesium hydroxide (Milk Of Magnesia Concentrated) 2,400 mg/10 mL suspension suspension, Take 30 mL by mouth every 6 hours if needed for constipation., Disp: , Rfl: metoprolol succinate XL (Toprol-XL) 25 mg 24 hr tablet, Take 1 tablet (25 mg) by mouth once daily. Do not crush or chew., Disp: 30 tablet, Rfl: 0 nitroglycerin (Nitrodur) 0.1 mg/hr patch, Place 1 patch on the skin once daily., Disp: , Rfl: nystatin (Mycostatin) 100,000 unit/gram powder, Apply 1 Application topically 2 times a day as needed., Disp: , Rfl: oxymetazoline (Afrin) 0.05 % nasal spray, Administer 2 sprays into each nostril every 12 hours if needed for congestion for up to 3 days. Do not use for more than 3 days., Disp: 30 mL, Rfl: 0 sennosides-docusate sodium (Senna Plus) 8.6-50 mg tablet, Take 2 tablets by mouth every 12 hours if needed for constipation., Disp: , Rfl: sertraline (Zoloft) 50 mg tablet, Take 1 tablet (50 mg) by mouth once daily., Disp: , Rfl: Objective Vitals: 09/11/24 1505 BP: 105/64 Pulse: SpO2: Exam no acute distress, well developed man appearing his stated age normal sclera moist mucus membranes Normocephalic, nose throat no obvious deformity, no carotid bruit appreciated no peripheral edema symmetric chest rise nondistended abdomen, no palpable masses, no bruits or pulsations appreciated alert and oriented, full strength in all extremities, normal sensation to light touch throughout, normal mood Extremities: warm and perfused, palpable radial, ulnar, DP/PT pulses. All extremities warm and non edematous, no wounds or sores. Study Result Narrative & Impression Interpreted By: Romaine Evans, STUDY: CT ANGIO HEAD AND NECK W AND WO IV CONTRAST; 07/08/2024 12:30 am INDICATION: Signs/Symptoms:CVA. COMPARISON: Correlation made to noncontrast head CT of 07/07/2024. ACCESSION NUMBER(S): [id number] ORDERING CLINICIAN: VIRGINIA HERNANDEZ TECHNIQUE: Unenhanced CT images of the head were obtained. Subsequently, N/A of N/A was administered intravenously and axial images of the head and neck were acquired. Coronal, sagittal, and 3-D reconstructions were provided for review. FINDINGS: CTA HEAD FINDINGS: Anterior circulation: [id number] atherosclerotic calcification in the carotid siphons without hemodynamically significant luminal narrowing. The bilateral intracranial internal carotid arteries, bilateral carotid terminals, bilateral proximal anterior and middle cerebral arteries are normal. Posterior circulation: Mild atherosclerotic calcification in the V4 segment of the left vertebral artery without significant luminal narrowing. Minor diffuse smooth narrowing of the V4 segment of the right vertebral artery distal to the PICA origin, probably representing developmental variability with or without some degree of atherosclerotic narrowing. Bilateral intracranial vertebral arteries, vertebrobasilar junction, basilar artery and proximal posterior cerebral arteries are otherwise normal. No intracranial saccular aneurysm or other abnormal intracranial enhancement. CTA NECK FINDINGS: Right carotid vessels: The common carotid artery is normal. Moderate partially calcified atherosclerotic plaque about the carotid bifurcation and in the proximal ICA without hemodynamically significant luminal narrowing. The internal carotid artery in the neck is otherwise normal. 0% ICA narrowing by NASCET criteria. Left carotid vessels: The common carotid artery is normal. Moderate partially calcified atherosclerotic plaque about the carotid bifurcation and in the proximal ICA without hemodynamically significant luminal narrowing. The internal carotid artery in the neck is otherwise normal. 0% ICA narrowing by NASCET criteria. Vertebral vessels: Mild athero sclerotic narrowing of the origins of the vertebral arteries, questionable hemodynamic significance. The visualized segments of the cervical vertebral arteries are otherwise normal in caliber. Left vertebral artery is dominant. Coronary artery calcifications noted. IMPRESSION: No evidence for significant stenosis of the cervical vessels. No evidence for significant stenosis or large branch vessel cutoffs of the intracranial vessels. Assessment/Plan The primary encounter diagnosis was Coronary artery disease involving [place] coronary artery of [place] heart without angina pectoris. A diagnosis of History of stroke with residual deficit was also pertinent to this visit.Exam is benign with no clinical evidence of peripheral vascular disease. CTA head and neck 07/08/24 personally viewed Given impending CABG will get baseline non invasive vascular testing to ensure no asymptomatic disease and as baseline. Carotid duplex PVR lower extremities TAM Perkins This note was created in part after personal review of documents in EMR including recent labs and available radiologic imaging. Total time spent in review of EMR, relevant imaging, time with patient and completion of this document is 20 minutes. documented in this encounter [facility] Work Phone: 09-11-2024 Instructions TAM Perkins - 09/11/2024 3:20 PM EDT I have ordered carotid artery ultrasound and lower extremity vascular resting to be done prior to your surgery. Please schedule along with already ordered vein mapping studies. TAM Perkins documented in this encounter [facility] Work Phone: 09-05-2024 History of Present illness Narrative Subjective Cisco Saini is a 68 y.o. male. HPI This is a neurology follow up appointment for this man who had an acute left centrum semiovale ischemic stroke around 07/07/24, with symptoms of right facial droop, dysarthria, and right hemiparesis starting in the afternoon. He was evaluated at [facility], had a Telestroke evaluation on 07/07/24. He was not administered TNK due to being out of the time window, and non-disabling deficits. He did not have a large vessel occlusion. His MRI of the brain was reviewed, and it showed a 1 cm x 1 cm x 2 cm acute ischemic stroke in the left centrum semiovale, and remote lacunar stroke with hemosiderin included in the adjacent centrum semiovale. He had significant chronic microvascular white matter changes. LDL was 174. TTE showed normal EF, but there was a PFO. He was LKW Th night, 07/06/24. His NIHSS=8. He was discharged for acute stroke rehab, currently still receiving PT/OT. He has had significant improvement in his right sided strength. He can walk with a julian-walker. He has been diagnosed with a OR, 4 vessel coronary artery disease, and will be scheduled for OHS, including repair of his PFO, by Dr. Atkins. Current medications were reviewed. He had not seen any physicians for several years prior to his stroke in June. Objective Neurological Exam Alert older man, with fluent speech, interactive. No definite dysarthria. Mild right central facial paresis. Tongue is midline Right upper and lower extremity have 3/5 strength. Patient is in a wheelchair. Physical Exam I personally reviewed laboratory, radiographic, and medical studies which were pertinent for nothing. Assessment/Plan documented in this encounter [facility] Work Phone: 09-05-2024 Instructions Virginia Putnam MD - 09/05/2024 2:30 PM EDT You had a pure motor, striato-capsular ischemic stroke in the left centrum semi-ovale. The cause of the stroke may well be cardio-embolic. You had a OR, and have a PFO. Neurologically, your prognosis is good, and you should have further recovery. I agree with your current medications. I am clearing you neurologically to have OHS whenever this is arranged. Continue your PT/OT as long as possible. Follow up is left open ended. Good luck to you as you continue your stroke recovery and have open heart surgery. documented in this encounter [facility] Work Phone: 08-30-2024 History of Present illness Narrative Referred by Dr. Kwong History Of Present Illness: Cisco Saini is a 68 y.o. male referred for CABG evaluation. He has a hx of recent lacunar infarct with hemiplegia. He is currently in rehab working towards improving his mobility. He is regaining some function in both extremities. During his hospitalization he had a NSTEMI and cath demonstrated, proximal LAD, OM and RCA disease. Prior to stroke patient was very active without any major medical problems. Past Medical History: Stroke Past Surgical History: He has a past surgical history that includes Cardiac catheterization (N/A, 07/11/2024) and Cardiac catheterization (N/A, 07/11/2024). Social History: He reports that he has quit smoking. His smoking use included cigarettes. He has quit using smokeless tobacco. His smokeless tobacco use included chew. He reports current alcohol use. He reports that he does not use drugs. Family History: No family history on file. Allergies: Patient has no known allergies. Outpatient Medications: Current Outpatient Medications Medication Instructions acetaminophen (TYLENOL) 650 mg, oral, Every 4 hours PRN aspirin 81 mg, oral, Daily atorvastatin (LIPITOR) 40 mg, oral, Nightly bisacodyl (DULCOLAX (BISACODYL)) 10 mg, rectal, Daily PRN clopidogrel (PLAVIX) 75 mg, oral, Daily gabapentin (NEURONTIN) 200 mg, oral, 2 times daily lisinopril 5 mg, oral, Daily magnesium hydroxide (Milk Of Magnesia Concentrated) 2,400 mg/10 mL suspension suspension 30 mL, oral, Every 6 hours PRN metoprolol succinate XL (TOPROL-XL) 25 mg, oral, Daily, Do not crush or chew. nitroglycerin (Nitrodur) 0.1 mg/hr patch 1 patch, transdermal, Daily nystatin (Mycostatin) 100,000 unit/gram powder 1 Application, Topical, 2 times daily PRN oxymetazoline (Afrin) 0.05 % nasal spray 2 sprays, Each Nostril, Every 12 hours PRN, Do not use for more than 3 days. sennosides-docusate sodium (Senna Plus) 8.6-50 mg tablet 2 tablets, oral, Every 12 hours PRN sertraline (ZOLOFT) 50 mg, oral, Daily Last Recorded Vitals: Vitals: 08/30/24 1524 BP: 116/69 BP Location: Left arm Patient Position: Sitting Pulse: 69 SpO2: 92% Weight: 78.5 kg (173 lb) Height: 1.753 m (5' 9) Physical Exam: General: no acute distress Cardiovascular: Regular rate and rhythm Respiratory: symmetrical chest rise and fall, no increased work of breathing Wound: incisions well healed Extremities: no edema. RUE with some movement and sensation, RLE Last Labs: CBC - Lab Results Component Value Date WBC 5.7 08/15/2024 HGB 14.3 08/15/2024 HCT 43.9 08/15/2024 MCV 95 08/15/2024 PLT 247 08/15/2024 CMP - Lab Results Component Value Date CALCIUM 9.1 08/15/2024 PROT 5.7 (L) 08/29/2024 ALBUMIN 3.6 08/29/2024 AST 40 (H) 08/29/2024 ALT 112 (H) 08/29/2024 ALKPHOS 299 (H) 08/29/2024 BILITOT 0.5 08/29/2024 LIPID PANEL - Lab Results Component Value Date CHOL 235 (H) 07/08/2024 TRIG 75 07/08/2024 HDL 46.0 07/08/2024 CHHDL 5.1 07/08/2024 VLDL 15 07/08/2024 NHDL 189 (H) 07/08/2024 RENAL FUNCTION PANEL - Lab Results Component Value Date GLUCOSE 90 08/15/2024 NA 139 08/15/2024 K 4.6 08/15/2024 CL 106 08/15/2024 CO2 26 08/15/2024 ANIONGAP 12 08/15/2024 BUN 13 08/15/2024 CREATININE 0.95 08/15/2024 CALCIUM 9.1 08/15/2024 ALBUMIN 3.6 08/29/2024 Lab Results Component Value Date HGBA1C 5.8 (H) 07/08/2024 Echo: Transthoracic Echo (TTE) Complete 07/10/2024 CONCLUSIONS: 1. The left ventricular systolic function is normal, with a visually estimated ejection fraction of 60-65%. 2. Spectral Doppler shows an impaired relaxation pattern of left ventricular diastolic filling. 3. There is normal right ventricular global systolic function. 4. Bubble study is positive for a right to left shunt, suggestive of a patent foramen ovale. Cath: Cardiac Catheterization Procedure 07/11/2024 Coronary Lesion Summary: Vessel Stenosis Vessel Segment LAD 70% stenosis proximal 1st Diagonal 90% stenosis proximal Circumflex 50% stenosis mid OM 3 95% stenosis proximal Ramus 50% stenosis proximal RCA 90% stenosis distal Assessment/Plan 68 yr/old male s/p stroke with right sided hemiparesis with multivessel CAD s/p NSTEMI. Discussed options for revascularization in detail with the patient. The best usp management of his coronary disease is for complete revascularization with CABG; however, given his recent stroke I also discussed the option of PCI to LAD which Dr. Kwong and I had discussed earlier; however, this would leave behind untreated disease. The PCI option would give him more time to recover from his stroke and then if he needed more intervention in the future we could consider CABG. At this time he is not an unreasonable candidate for CABG. He has showed good rehab potential and is motivated to rehab after surgery. After discussion all options and risks he has elected to proceed with CABG. Patient will need neurology clearance prior to OR Will also need CT of his chest and vein mapping Continue with rehab up until the time of surgery Elisabeth Atkins MD documented in this encounter [facility] Work Phone: 08-04-2024 Note [facility] Medical Records Department [address] [place] [id number] Discharge Summary 08/04/24 1402 MR#: [id number] Acct: [id number] Name: CISCO SAINI Rep #: [id number] : [id number] 68 From: Lorraine Meza DO PCP: Dr. Debbie Barba MD Status:ADM IN Location: [place] [address] Providers Date of Admission: 07/13/24 Date of Discharge: 08/04/24 Primary Care Physician: Dr. Debbie Barba MD None Reason For Visit: STROKE Diagnosis Discharge Diagnosis (1) Physical debility: Status: Acute Code(s): R53.81 - Other malaise (2) Ischemic cerebrovascular accident (CVA): Status: Acute Code(s): I63.9 - Cerebral infarction, unspecified Plan: MRI on 07/09/2024 showed an acute lacunar infarct in the left centrum semiovale and a remote lacunar infarct with hemosiderin deposition in the adjacent left centrum semiovale. (3) Dysarthria: Status: Acute Code(s): R47.1 - Dysarthria and anarthria (4) Right hemiparesis: Status: Acute Code(s): G81.91 - Hemiplegia, unspecified affecting right dominant side (5) Facial droop due to acute stroke: Status: Acute Code(s): I63.9 - Cerebral infarction, unspecified; R29.810 - Facial weakness (6) Cognitive dysfunction due to acute cerebrovascular accident (CVA): Status: Acute Code(s): I63.9 - Cerebral infarction, unspecified; R41.89 - Other symptoms and signs involving cognitive functions and awareness (7) Subsequent non-ST elevation (NSTEMI) myocardial infarction: Status: Acute Code(s): I22.2 - Subsequent non-ST elevation (NSTEMI) myocardial infarction (8) CAD (coronary artery disease), [place] coronary artery: Status: Chronic Code(s): I25.10 - Atherosclerotic heart disease of [place] coronary artery without angina pectoris Qualifiers: Associated angina: without angina [place] vs. transplanted heart: [place] heart Qualified Code(s): I25.10 - Atherosclerotic heart disease of [place] coronary artery without angina pectoris Plan: Continue statin, nitrates, beta-blockers, dual antiplatelet agents. 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 Will follow up with cardiology and thoracic surgery mid-August for the timing of the CABG. (9) HTN (hypertension): Status: Chronic Code(s): I10 - Essential (primary) hypertension Qualifiers: Hypertension type: primary hypertension Qualified Code(s): I10 - Essential (primary) hypertension (10) PFO (patent foramen ovale): Status: Chronic Code(s): Q21.12 - Patent foramen ovale (11) Abnormal LFTs: Status: Chronic Code(s): R79.89 - Other specified abnormal findings of blood chemistry (12) Dyspnea on exertion: Status: Resolved Code(s): R06.09 - Other forms of dyspnea Plan: Resolved with the addition of Nitrate to the drug regimen. No lightheadedness with the nitrate. (13) Hyponatremia: Status: Resolved Code(s): E87.1 - Hypo-osmolality and hyponatremia (14) HLD (hyperlipidemia): Status: Chronic Code(s): E78.5 - Hyperlipidemia, unspecified Qualifiers: Hyperlipidemia type: pure hypercholesterolemia Qualified Code(s): E78.00 - Pure hypercholesterolemia, unspecified (15) Tobacco dependence in remission: Status: Inactive Code(s): F17.201 - Nicotine dependence, unspecified, in remission (16) Depression: Status: Acute Code(s): F32.A - Depression, unspecified (17) Glucose intolerance: Status: Acute Code(s): E74.39 - Other disorders of intestinal carbohydrate absorption Plan: Hemoglobin A1c was 5.8%. Plan 1. DC to SNF/[facility] 2. Follow up with cardiology/cardiothoracic surgery for timing of proposed CABG 3. Check a CBC, CMP and lipid profile on 08/07/2024 4. Abnormal LFTs with history of 3 or more alcoholic drinks per day/beer. Recommend imaging of the liver going forward. 5. Continue sertraline for depression. Has been tolerating 50 mg daily with no adverse side effects. Would consider increasing to 100 mg daily which is a more therapeutic dose, especially since he is going to require CABG going forward and likely will need acute rehab/SNF after the CABG. Sleeping well at DC from rehab and has good appetite. No longer irritable but, affect is still flat at times and he is frustrated with insurance and perseverates on this. Medications at Discharge Home Medications aspirin 81 mg chewable tablet 1 tab PO DAILY heart health 07/13/24 atorvastatin 40 mg tablet 40 mg PO QHS cholesterol 07/13/24 clopidogrel 75 mg tablet (Plavix) 75 mg PO DAILY afib 07/13/24 metoprolol succinate 25 mg tablet,extended release 24 hr 25 mg PO DAILY blood pressure 07/13/24 oxymetazoline 0.05 % nasal spray (12 Hour Nasal Relief [place]) 2 spray intranasal Q12H PRN congestion 07/13/24 acetaminophen 325 mg tablet 650 mg (2 x 325 mg) PO Q6H PRN PRN Pain Score 1-10 #1 TAB 08/04/24 bisacodyl 10 mg rectal suppository 10 mg [place] X1 PRN Constipation #1 ea 08/04/24 diclofenac sodium 1 % topic (more content not included)... [facility] 07-14-2024 Note [facility] Medical Records Department [address] [place] [address] History Physical Exam 07/14/24 1216 MR#: [id number] Acct: [id number] Name: CISCO SAINI Rep #: [id number] : 1955 68 From: Lorraine Meza DO PCP: Dr. Debbie Barba MD Status:ADM IN Location: [id number] HPI - General General Date of Admission: 07/13/24 Date of Service: 07/14/24 Chief Complaint: Post stroke debility HPI Narrative CISCO SAINI, is a 68 YO male with no significant PMH other than remote tobacco dependence (quit 1998 after 8 years of smoking) and on no RX medications who presented to an ED on 07/07/24 c/o sudden onset of R side weakness. He was unable to walk and could not lift his R arm. He had started feeling generally weak earlier in the day but,, did not have a WYATT and had no focal neurologic deficits. While in the ED his sx resolved. CT brain revealed no acute pathology. CTA of the head and neck showed no significant stenosis. Reportedly he had a very elevated troponin ( 526 initially in Ed and peaked at 646) but, EKG was negative for ischemia. Total cholesterol was 235 with an LDL of 174 and a HDL of 46. TRIG were WNL. HGBA1C was increased at 5.8%. He was started on a heparin drip and admitted to the hospital for TIA. He was also started on a statin and ASA. ECHO, MRI and cardiology consult was ordered. On 07/09/24 he reported worsening R side weakness and increased dysarthria. A repeat [place] CT brain on 07/09/24 showed a low attenuation lesion of the L periventricular white matter that was not reported on the first CT brain. MRI showed acute lacunar infarct in the L centrum semiovale. There was also a remote lacunar infarct with hemosiderin deposition in the adjacent L centrum semiovale. 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 LVEF was normal at 60%. ECHO showed no wall motion abnormalities. There was a PFO. While at [facility] he was seen by PT/OT/ST and recommendation was made for acute rehab at [place]. He was transferred to the acute inpt rehab unit at [facility] on 07/13/24 for 3 hours of therapy daily. CABG was discussed with him prior to DC from [facility] and he is to follow up with cardiology in 6-8 weeks. He has a PFO per the records we received. He did not have US of the LE's to R/O DVT but, he denied any swelling of the LE's, calf pain and hx of of DVT. Afebrile VSS -blood pressure has ranged from 131/75 to 139/62 since arrival on rehab. The heart rate is in the 70s. Maintaining appropriate oxygen saturation on RA-95% Oral intake - FOOD good Discussed with nursing - no problems that need addressed Reviewed the THERAPY notes Medication list reviewed. All lab drawn this morning was personally reviewed. CBC is unremarkable. Sodium is mildly decreased at 133 and the potassium is 4.2. The BUN is elevated at 30 with a creatinine of 1.15 and a GFR of 67. The BUN/creatinine ratio is 26.1. AST is elevated at 44, ALT is increased at 76 and the alkaline phosphatase is increased to 239. Bilirubin is within normal limits. Magnesium is 2.6 and phosphorus is normal. Calcium is normal. [facility] Medical History (Updated 07/14/24 @ 15:[address] Lorraine Meza, ) Excessive drinking alcohol CAD (coronary artery disease), [place] coronary artery Subsequent non-ST elevation (NSTEMI) myocardial infarction Ischemic cerebrovascular accident (CVA) PFO (patent foramen ovale) HTN (hypertension) HLD (hyperlipidemia) Tobacco dependence in remission Medical History no medical history Home Medications ???Medication ???Instructions ???Recorded ???Last Taken ???Type aspirin 81 mg chewable tablet 1 tab PO DAILY heart health 07/13/24 07/13/24 History atorvastatin 40 mg tablet 40 mg PO QHS cholesterol 07/13/24 07/12/24 History clopidogrel 75 mg tablet (Plavix) 75 mg PO DAILY afib 07/13/24 Unknown History lisinopril 10 mg tablet 10 mg PO DAILY blood pressure 07/13/24 07/13/24 History metoprolol succinate 25 mg 25 mg PO DAILY blood pressure 07/13/24 07/13/24 History tablet,extended release 24 hr oxymetazoline 0.05 % nasal spray 2 spray intranasal Q12H PRN 07/13/24 Unknown History (12 Hour Nasal Relief [place]) congestion Allergy/AdvReac Type Severity Reaction Status Date / Time No Known Allergies Allergy Verified 07/13/24 19:18 Family History (Updated 07/14/24 @ 13:[address] Lorraine Meza DO) Mother Alzheimer's dementia Carotid stenosis + hx of CEA Family History unable to obtain Surgical History (Updated 07/14/24 @ 13:[address] Lorraine Meza DO) History of tonsillectomy Surgical History no surgical history Social History (Updated 07/14/24 @ 13:[address] Lorraine Meza DO) household (more content not included)... [facility] 07-13-2024 History of Present illness Narrative Medication Education Medication education for Cisco Saini was provided to the patient and family for the following medication(s): ASA, atorvastatin, clopidogrel, lisinopril, metoprolol, oxymetazoline, polyethylene glycol Medication education provided by a Pharmacist: ADR Counseling Medication interactions Dose, frequency, storage How to take and what to do if a dose is missed Proper dose, indication, possible ADRs Refilling the medication How the medication works and benefits of taking it Benefits of taking the medication Importance of compliance Necessary labs and/or other monitoring Any drug interactions (including OTCs and herbvals) and importance of notifying a healthcare provider of any medication changes Potential duration of therapy Proper storage of the medication(s) Identified potential barriers to education: Acuteness of the illness Method(s) of Education: Verbal Written materials provided and reviewed An opportunity to ask questions and receive answers was provided. Assessment of understanding the patient and family: 2= meets goals/outcomes Additional Notes (if applicable): Spoke with him and his about all the new meds. Could be a bit overwhelming as there were several new medications. I was not sure how much education he would receive at the rehab location he was headed to so I printed detailed literature on each medication and sat down beside him and went through each of them one by one and had him ask any questions that came to mind. His friend came at the end of our conversation and I was able to review all of the same information with her as well. Immanuel Luis RPh Per medical team, patient is medically appropriate for discharge today. Glass Beveller to meet with patient at bedside to review discharge plan and Medicare IMM. SW/DSC to send updated notes and final orders to [facility] Acute Rehab via [facility] when complete. No HENS document needed for acute rehab; [facility] confirmed. Nursing to confirm transport. - 1430: Transport confirmed for 1530; Nursing, patient, and facility updated. - 1705: Patient continues to await delayed transport. SW received a call from patient's partner/Pearl and updated her per patient's request. Plan for patient is to discharge to [facility] In[facility]hab today. No further Care Transitions needs foreseen. Care Transitions available upon request. SENIA Gil Speech-Language Pathology DEPARTMENT HELPER Adult Inpatient Speech-Language Cognition, Clinical Swallow Evaluation, & Speech Treatment Patient Name: Cisco Saini Today's Date: 07/13/2024 Time Calculation Start Time: 928 Stop Time: 1004 Time Calculation (min): 36 min Speech-Language Cognition Evaluation: 12 minutes Speech treatment: 6 minutes Clinical Swallow Evaluation: 18 minutes Current Problem: 1. TIA (transient ischemic attack) 2. Elevated troponin level Transthoracic Echo (TTE) Complete Transthoracic Echo (TTE) Complete Case Request Poker Machine Attendant: Left Heart Cath, With LV Case Request Poker Machine Attendant: Left Heart Cath, With LV Cardiac Catheterization Procedure Cardiac Catheterization Procedure 3. Non-ST elevation (NSTEMI) myocardial infarction (Multi) Cardiac Catheterization Procedure 4. Dysphagia due to recent cerebrovascular accident (CVA) [I69.391] 5. 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] DEPARTMENT HELPER Assessment: DEPARTMENT HELPER Assessment DEPARTMENT HELPER [place] Intervention Outcome: Making Progress Towards Goals DEPARTMENT HELPER Assessment Results: Expression deficits, Motor Speech Deficits Prognosis: Good Treatment Provided: Yes Treatment Tolerance: Patient limited by fatigue Medical Staff Made Aware: Yes Strengths: Motivation Barriers: Comorbidities Education Provided: Yes DEPARTMENT HELPER Plan: Plan Inpatient/Swing Bed or Outpatient: Inpatient Treatment/Interventions: Articulation, Oral motor exercises, Patient/family education DEPARTMENT HELPER [place] Plan: Continue Plan of Care DEPARTMENT HELPER Plan: Skilled DEPARTMENT HELPER DEPARTMENT HELPER Frequency: 3x per week Duration: Other (Comment) (Current admission) DEPARTMENT HELPER Discharge Recommendations: Continue skilled DEPARTMENT HELPER services at the next level of care Next Treatment Priority: OMEs, clear speech strategies Discussed POC: Patient, Nursing, Physician Discussed Risks/Benefits: Yes Patient/Caregiver Agreeable: Yes DEPARTMENT HELPER - OK to Discharge: Yes Speech & Dysphagia Goal(s): Nursing Home Goal(s): In one month... Cisco will consume all textures of solid and consistencies of liquids with no overt s/s of aspiration or penetration in 90% of trials in order to maintain adequate nutrition and hydration. Goal Start: 07/13/2024 Anticipated End: 08/13/2024 Goal End: Cisco will produce conversational speech that is 100% intelligible independently in all contexts. Goal Start: 07/13/2024 Anticipated End: 08/13/2024 Goal End: Short Term Goal(s): In one week... Cisco will tolerate prescribed diet with no overt s/s of aspiration or penetration in 90% of trials. Goal Start: 07/13/2024 Anticipated End: 07/20/2024 Goal End: In two weeks... Cisco will complete oral motor exercises for improve lingual and labial symmetry and ROM for improved articulatory precision and decrease injury during PO intake with 85% accuracy given minimal cues. 07/13: Progressing - continue For further information, see treatment section below Goal Start: 07/13/2024 Anticipated End: 07/27/2024 Goal End: Cisco will utilize clear speech strategies to produce intelligible speech at phrase level with 85% accuracy given minimal verbal/visual cues. Goal Start: 07/13/2024 Anticipated End: 07/20/2024 Goal End: In three weeks... Cisco will utilize abdominal breathing to increase sustained phonation to 12+ seconds in 80% of trials. Goal Start: 07/13/2024 Anticipated End: 08/03/2024 Goal End: Subjective Current Problem: The patient was admitted for TIA and subsequent CVA diagnosis. They were seen seated upright in chair in room for evaluation and treatment. The patient reported no concerns with swallowing, though continued difficulty with slurred speech and biting lip during PO intake. Per bedside nurse, patient noted to be coughing while drinking coffee this morning. Most Recent Visit: DEPARTMENT HELPER Most Recent Visit DEPARTMENT HELPER Received On: 07/13/24 General Visit Information: General Information Chart Reviewed: Yes Arrival: Independent Reason for Referral: Slurred speech Referred By: Candelario Montana MD Past Medical History Relevant to Rehab: CVA, elevated troponin, R sided weakness, dysarthria, NSTEMI, R sided facial droop Patient Seen During This Visit: Yes Number of Authorized Treatments : 1 Total Number of Visits : 1 Prior to Session Communication: Bedside nurse Objective Pain: Pain Assessment Pain Assessment: 0-10 0-10 (Numeric) Pain Score: 0 - No pain Cognition: Cognition Overall Cognitive Status: Within Functional Limits Orientation Level: Oriented X4 Attention: Within Functional Limits Motor Speech Production: Motor Speech Production Assessments Used: [place] Dysarthria Assesment Tool (N-ROOSEVELT) Oral Motor : Impaired, Facial symmetry, Labial agility, Labial deviation R, Labial ROM, Labial symmetry, Lingual deviation R, Lingual symmetry Automatic Speech: WFL Repetition: WFL Intelligibility: WFL Diadochokinetic Rate: Impaired, [place] average per sec Paralinguistic Features: WFL Respiratory Support: Reduced, Max Phonation Time Motor Speech Disorder: Dysarthria Auditory Comprehension: Auditory Comprehension Yes/No Questions: Within Functional Limits Commands: Within Functional Limits Conversation: Within Functional Limits Verbal: Verbal Expression Primary Mode of Expression: Verbal Primary Language: [place] Confrontation Naming: Within Functional Limits Repetition: Within Functional Limits Open Ended Questions: Within Functional Limits Conversation: Within Functional Limits Affect: Within Functional Limits Prosody: Within Functional Limits Eye Contact: Within Functional Limits DEPARTMENT HELPER Outcome Measures: The [place] Dysarthria Assessment Tool (N-ROOSEVELT) was administered in order to assess Cisco's motor speech skills. The results are as follows: Intelligibility: Mild decrease d/t impaired articulation Respiration: WFL Phonation: Maximum Phonation Time: mildly impaired - 14 sec S/Z Ratio: 0.83 Sustain Volume: WFL Pitch Glides: WFL Significant decrease in loudness and pitch breaks noted during sustained phonation activities Patient struggled with completion of S/Z ratio as instructed so score not valid Patient noted to exhibit phonation breaks and change in vocal quality during pitch glides Resonance: Slight hyponasality noted Prosody: Adequate stress and intonation Articulation: Diadochokinetic rate: Impaired Puh: 3/sec Tuh: 2.6/sec Kuh: 2.8/sec PuhTuhKuh: 1.8/sec Norms- Puh: 5.3-7.8. Tuh: 5.7-7.3. Kuh: 5.0-8.1. Puh tuh kuh: 3.0-8.0. Rate of movement: Mild impairment Patient completed 9 repetitions in 5 seconds which falls below the typical range but is still rated as good Inpatient: Education Documentation Handouts, taught by SHANA Mendoza at 07/13/2024 10:43 AM. Learner: Patient Readiness: Acceptance Method: Explanation Response: Verbalizes Understanding Speech/Language, taught by SHANA Mendoza at 07/13/2024 10:43 AM. Learner: Patient Readiness: Acceptance Method: Explanation Response: Verbalizes Understanding Modified Diet Training, taught by SHANA Mendoza at 07/13/2024 10:43 AM. Learner: Patient Readiness: Acceptance Method: Explanation Response: Verbalizes Understanding Education Comments No comments found. Speech-Language Pathology DEPARTMENT HELPER Adult Inpatient Speech-Language Pathology Treatment DEPARTMENT HELPER Assessment: DEPARTMENT HELPER [place] Intervention Outcome: Making Progress Towards Goals DEPARTMENT HELPER Assessment Results: Expression deficits, Motor Speech Deficits Prognosis: Good Treatment Provided: Yes Treatment Tolerance: Patient limited by fatigue Medical Staff Made Aware: Yes Strengths: Motivation Barriers: Comorbidities Education Provided: Yes Plan: Inpatient/Swing Bed or Outpatient: Inpatient Treatment/Interventions: Articulation, Oral motor exercises, Patient/family education DEPARTMENT HELPER TX Plan: Continue Plan of Care DEPARTMENT HELPER Plan: Skilled DEPARTMENT HELPER DEPARTMENT HELPER Frequency: 3x per week Duration: Other (Comment) (Current admission) DEPARTMENT HELPER Discharge Recommendations: Continue skilled DEPARTMENT HELPER services at the next level of care Next Treatment Priority: OMEs, clear speech strategies Discussed POC: Patient, Nursing, Physician Discussed Risks/Benefits: Yes Patient/Caregiver Agreeable: Yes DEPARTMENT HELPER - OK to Discharge: Yes Subjective Current Problem: See above in speech assessment Most Recent Visit: DEPARTMENT HELPER Received On: 07/13/24 General Visit Information: Reason for Referral: Slurred speech Referred By: Candelario Montana MD Past Medical History Relevant to Rehab: CVA, elevated troponin, R sided weakness, dysarthria, NSTEMI, R sided facial droop Patient Seen During This Visit: Yes Arrival: Independent Number of Authorized Treatments : 1 Total Number of Visits : 1 Prior to Session Communication: Bedside nurse Pain Assessment: Pain Assessment: 0-10 0-10 (Numeric) Pain Score: 0 - No pain Objective Speech & Dysarthria Goal(s): See all goals identified in the evaluation above - goal targeted in treatment assessed here only Short Term Goal: Cisco will complete oral motor exercises for improve lingual and labial symmetry and ROM for improved articulatory precision and decrease injury during PO intake with 85% accuracy given minimal cues. 07/13: Progressing - continue DEPARTMENT HELPER provided patient with written handout, instruction, modeling, and demonstration for OMEs. Patient was fatigued so completion was fair overall. Limited exercises and trials completed. Patient completed OMEs with 66% accuracy given max cues. Goal Start: 07/13/2024 Anticipated End: 07/27/2024 Goal End: Motor Speech: Motor Speech Intervention : Oral/Facial Agility Techniques Oral Motor Exercises: DEPARTMENT HELPER provided written instruction, demonstration, and coaching for completion of OMEs. Patient instructed to complete exercises in 10 reps 3x/daily. Labial: Labial retraction Labial protrusion Alternating retraction and protrusion Inpatient: Education Documentation Handouts, taught by Hien Tellez CCC-DEPARTMENT HELPER at 07/13/2024 10:43 AM. Learner: Patient Readiness: Acceptance Method: Explanation Response: Verbalizes Understanding Speech/Language, taught by Hien Tellez CCC-GEOVANNA at 07/13/2024 10:43 AM. Learner: Patient Readiness: Acceptance Method: Explanation Response: Verbalizes Understanding Modified Diet Training, taught by SHANA Mendoza at 07/13/2024 10:43 AM. Learner: Patient Readiness: Acceptance Method: Explanation Response: Verbalizes Understanding Education Comments No comments found. Speech-Language Pathology DEPARTMENT HELPER Adult Inpatient Speech-Language Pathology Clinical Swallow Evaluation Recommendations: Risk for Aspiration: Other (Comment) (No signficant s/s of aspiration during CSE - however d/t comorbitities and current medical needs patient is at higher risk of aspiration than typical) Additional Recommendations: Speech Language Cognition Evaluation, Dysphagia treatment Solid Diet Recommendations : Regular (IDDSI Level 7) Liquid Diet Recommendations: Thin (IDDSI Level 0) Compensatory Swallowing Strategies: Decrease distractions during eating/feeding, Upright 90 degrees as possible for all oral intake, Remain upright for 20-30 minutes after meals, Alternate solids and liquids, Single sips, Small bites/sips, Eat/feed slowly, Effortful swallow, Place bolus on left, Check for pocketing of food, Right lingual sweep, Other (Comment) (Assist with set up) Oral Sensory Strategies: Change Temperature, Change Texture, Change Taste/Flavor Medication Administration Recommendations: Whole, With Liquid Follow up treatments: Diet tolerance monitoring, Patient/family education Dysphagia Goals: Patient will tolerate recommended diet without observed clinical signs of aspiration Assessment: Prognosis: Good Treatment Provided: No Treatment Tolerance: Patient limited by fatigue Medical Staff Made Aware: Yes Strengths: Motivation Barriers: Comorbidities Plan: Inpatient/Swing Bed or Outpatient: Inpatient Treatment/Interventions: Bolus trials, Assess diet tolerance, Diet recommendations, Patient/family education DEPARTMENT HELPER Plan: Skilled DEPARTMENT HELPER DEPARTMENT HELPER Frequency: 3x per week Duration: Other (Comment) (Current admission) DEPARTMENT HELPER Discharge Recommendations: Continue skilled DEPARTMENT HELPER services at the next level of care Diet Recommendations: Solid, Liquid Solid Consistency: Regular (IDDSI Level 7) Liquid Consistency: Thin (IDDSI Level 0) Next Treatment Priority: OMEs, clear speech strategies Discussed POC: Patient, Nursing, Physician Discussed Risks/Benefits: Yes Patient/Caregiver Agreeable: Yes DEPARTMENT HELPER - OK to Discharge: Yes Speech & Dysphagia Goals: Goals are outlined in the speech-language cognition evaluation above Subjective Current Problem: See speech-language cognition evaluation above General Visit Information: Patient Class: Inpatient Living Environment: Home Arrival: Independent Reason for Referral: Slurred speech Referred By: Candelario Montana MD Past Medical History Relevant to Rehab: CVA, elevated troponin, R sided weakness, dysarthria, NSTEMI, R sided facial droop Prior Level of Function: WFL Developmental Status: Age Appropriate Patient Seen During This Visit: Yes Number of Authorized Treatments : 1 Total Number of Visits : 1 Prior to Session Communication: Bedside nurse Reviewed Procedures and Risks: Yes Date of Onset: 07/08/24 Date of Order: 07/12/24 [employer] Diet: Regular texture diet and thin liquids Current Diet : Regular texture diet and thin liquids Dysphagia Diagnosis: Mild oral stage dysphagia Objective Baseline Assessment: Respiratory Status: Room air Behavior/Cognition: Alert, Cooperative Vision: Functional for self-feeding Hearing: Within Functional Limits Patient Positioning: Upright in Chair Baseline Vocal Quality: Dysphonic Volitional Cough: Weak Volitional Swallow: Within Functional Limits Pain: Pain Assessment: 0-10 0-10 (Numeric) Pain Score: 0 - No pain Oral/Motor Assessment: Oral Hygiene: Cracked mucosa - tongue coated in white/brewer colored material Dentition: Adequate/Natural Oral Motor: Impaired Function Facial Sensation: Within Functional Limits Facial Symmetry: Right droop, Right drooping eyelid Labial Agility: Reduced Labial Deviation Right: Reduced Labial ROM: Reduced right Labial Strength: Within Functional Limits Labial Symmetry: Abnormal symmetry right Lingual Agility: Within Functional Limits Lingual Deviation Right: Reduced Lingual ROM: Within Functional Limits Lingual Strength: Within Functional Limits Lingual Symmetry: Abnormal symmetry right Palatal Elevation: Within Functional Limits Vocal Quality: Exceptions to WFL Vocal Quality Impairment: Weak, Hyponasal Resonance, Breathy Intelligibility: Intelligibility reduced Intelligibility Ratin%-99% Breath Support: Adequate for speech Hearing: Within Functional Limits Consistencies Trialed: Consistencies Trialed: Yes Consistencies Trialed: Ice Chips, Thin (IDDSI Level 0) - Spoon, Thin (IDDSI Level 0) - Cup, Thin (IDDSI Level 0) - Straw, Pureed/extremely thick (IDDSI Level 4), Soft & bite sized/chopped (IDDSI Level 6), Regular (IDDSI Level 7) Clinical Observations: Patient Positioning: Upright in Chair Management of Oral Secretions: Other (Comment) (No observed difficulty at this time, though patient reported occasional drool from R sided of mouth) Signs/Symptoms of Aspiration: Throat Clearing Other Signs/Symptoms of Difficulty with Feeding: Oral Residue Overt Signs or Symptoms of Aspiration: Thin (IDDSI Level 0) - Spoon, Thin (IDDSI Level 0) - Straw, Soft & Bite Sized/Chopped (IDDSI Level 6) Poor Management of Oral Secretions: No Impaired Mastication: All consistencies Trialed Oral Residue: Soft & Bite Sized/Chopped (IDDSI Level 6), Regular (IDDSI Level 7) Immediate Throat Clear: Thin (IDDSI Level 0) - Spoon Delayed Throat Clear: Thin (IDDSI Level 0) - Straw, Soft & Bite Sized/Chopped (IDDSI Level 6) 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 Learner: Patient Readiness: Acceptance Method: Explanation Response: Verbalizes Understanding Speech/Language, taught by SHANA Mendoza at 07/13/2024 10:43 AM. Learner: Patient Readiness: Acceptance Method: Explanation Response: Verbalizes Understanding Modified Diet Training, taught by SHANA Mendoza at 07/13/2024 10:43 AM. Learner: Patient Readiness: Acceptance Method: Explanation Response: Verbalizes Understanding Education Comments No comments found. Cisco Saini is a 68 y.o. male on day 3 of admission presenting with TIA (transient ischemic attack). Subjective Slurred speech, facial asymmetry Right-sided weakness No chest pain or shortness of breath No worsening leg swelling No palpitations or syncope or lightheadedness at rest Objective Physical Exam General Appearance: AAO x 3, Skin: skin color pink, warm, and dry; no suspicious rashes or lesions Eyes : PERRL, EOM's intact ENT: mucous membranes pink and moist Neck: normocephalic Respiratory: lungs clear to auscultation anteriorly; no wheezing, rhonchi, or crackles. Heart: regular rate and rhythm. Abdomen: Nondistended, positive bowel sounds x4, soft, nontender Extremities: no edema Peripheral pulses: normal x4 extremities Neuro: Awake, weakness on right side, facial asymmetry with slight right facial droop. Last Recorded Vitals Blood pressure 95/58, pulse 68, temperature 36.5 C (97.7 F), temperature source Temporal, resp. rate 16, height 1.651 m (5' 5), weight 85.6 kg (188 lb 11.4 oz), SpO2 92%. Intake/Output last 3 Shifts: I/O last 3 completed shifts: In: 340 (4 mL/kg) [P.O.:340] Out: 1405 (16.4 mL/kg) [Urine:1400 (0.5 mL/kg/hr); Blood:5] Weight: 85.6 kg Relevant Results Scheduled medications aspirin, 81 mg, oral, Daily atorvastatin, 40 mg, oral, Nightly clopidogrel, 75 mg, oral, Daily lisinopril, 10 mg, oral, Daily metoprolol succinate XL, 25 mg, oral, Daily perflutren protein A microsphere, 0.5 mL, intravenous, Once in imaging polyethylene glycol, 17 g, oral, Daily sulfur hexafluoride microsphr, 2 mL, intravenous, Once in imaging Continuous medications PRN medications PRN medications: acetaminophen OR acetaminophen OR [DISCONTINUED] acetaminophen, [] hydrALAZINE FOLLOWED BY hydrALAZINE, oxygen, oxymetazoline Results for orders placed or performed during the hospital encounter of 07/07/24 (from the past 24 hour(s)) POCT GLUCOSE Result Value Ref Range POCT Glucose 135 (H) 74 - 99 mg/dL CBC Result Value Ref Range WBC 10.1 4.4 - 11.3 x10*3/uL nRBC 0.0 0.0 - 0.0 /100 WBCs RBC 4.91 4.50 - 5.90 x10*6/uL Hemoglobin 15.6 13.5 - 17.5 g/dL Hematocrit 46.5 41.0 - 52.0 % MCV 95 80 - 100 fL MCH 31.8 26.0 - 34.0 pg MCHC 33.5 32.0 - 36.0 g/dL RDW 13.1 11.5 - 14.5 % Platelets 245 150 - 450 x10*3/uL Basic metabolic panel Result Value Ref Range Glucose 115 (H) 74 - 99 mg/dL Sodium 135 (L) 136 - 145 mmol/L Potassium 4.2 3.5 - 5.3 mmol/L Chloride 103 98 - 107 mmol/L Bicarbonate 23 21 - 32 mmol/L Anion Gap 13 10 - 20 mmol/L Urea Nitrogen 16 6 - 23 mg/dL Creatinine 1.11 0.50 - 1.30 mg/dL eGFR 72 >60 mL/min/1.73m*2 Calcium 8.9 8.6 - 10.3 mg/dL POCT GLUCOSE Result Value Ref Range POCT Glucose 103 (H) 74 - 99 mg/dL POCT GLUCOSE Result Value Ref Range POCT Glucose 134 (H) 74 - 99 mg/dL POCT GLUCOSE Result Value Ref Range POCT Glucose 103 (H) 74 - 99 mg/dL Cardiac Catheterization Procedure Result Date: 07/11/2024 [facility] Poker Machine Attendant [address] [place] [address] [phone], Cardiovascular Catheterization Report Patient Name: CISCO SAINI Performing Physician: Gil Kwong MD Study Date: 07/11/2024 Verifying Physician: Gil Kwong MD MRN/PID: [id number] Mobile Security Specialist/Co-Scrub: Ordering Provider: Gil KWONG Date of /Age: 1 1955 / 68 years Mobile Security Specialist: Gender: M Fellow: Surgeon: Study: Left Heart Cath Indications: CISCO SAINI is a 69 year old male who presents with hypertension, diabetes, dyslipidemia, Stroke and an anginal equivalent chest pain assessment (i.e. dyspnea on exertion believed to be from ischemia). NSTE - ACS. Stress test performed: No. CTA performed: NoManolo Sauer accessed: No. LVEF Assessed: No. Cardiac arrest: No. Cardiac surgical consult: No. Cardiovascular Instability: No Procedure Description: After infiltration with 2% Lidocaine, the right radial artery was cannulated with a modified Seldinger technique. Subsequently a 6 Swiss sheath was placed in the right radial artery. Selective coronary catheterization was performed using a 5 Fr catheter(s) exchanged over a guide wire to cannulate the coronary arteries. A 5 Fr Bethel catheter was used for left and right coronary artery injections. Multiple injections of contrast were made into the left and right coronary arteries with angiograms recorded in multiple projections. After completion of the procedure, the arterial sheath was pulled and a TR Band Radial Compression Device was utilized to obtain patent hemostasis. Coronary Angiography: The coronary circulation is right dominant. Left Main Coronary Artery: The left main coronary artery is a normal caliber vessel. The left main arises normally from the left coronary sinus of Valsalva and bifurcates into the LAD and circumflex coronary arteries. The left main coronary artery showed a normal vessel. Left Anterior Descending Coronary Artery Distribution: The left anterior descending coronary artery is a normal caliber vessel. The LAD arises normally from the left main coronary artery. The LAD demonstrated atherosclerotic disease and calcification. The proximal left anterior descending coronary artery showed 70% stenosis. This lesion was calcified. The 1st diagonal branch is a small caliber vessel. The 1st diagonal branch showed atherosclerotic disease. The proximal 1st diagonal branch revealed 90% stenosis. This lesion was calcified. Circumflex Coronary Artery Distribution: The circumflex coronary artery is a normal caliber vessel. The circumflex arises normally from the left main coronary artery and terminates in the AV groove. The circumflex revealed atherosclerotic disease. The mid circumflex coronary artery showed 50% stenosis. This lesion was calcified. The 1st obtuse marginal branch is a small caliber vessel. The 1st obtuse marginal branch showed no significant disease or stenosis greater than 30%. The 2nd obtuse marginal branch is a medium-sized caliber vessel. The 2nd obtuse marginal branch demonstrated no significant disease or stenosis greater than 30%. The 3rd obtuse marginal branch is a normal caliber vessel. The 3rd obtuse marginal branch revealed atherosclerotic disease. The proximal 3rd obtuse marginal branch revealed 95% stenosis. Ramus Intermedius: The ramus intermedius is a normal caliber vessel. The ramus intermedius arises normally from the left main coronary artery. The ramus intermedius showed atherosclerotic disease. The proximal ramus intermedius showed 50% stenosis. Right Coronary Artery Distribution: The right coronary artery is a normal caliber vessel. The RCA arises normally from the right sinus of Valsalva. The RCA showed atherosclerotic disease and calcification. The distal right coronary artery showed 90% stenosis. This lesion was diffuse. The right posterolateral branch is a normal caliber vessel. The right posterolateral branch showed no significant disease or stenosis greater than 30%. The right posterior descending artery is a normal caliber vessel. The right posterior descending artery showed no significant disease or stenosis greater than 30%. Left Ventriculography: The LV ejection fraction was 60 to 65%. All left ventricular regional wall segments contract normally. Coronary Lesion Summary: Vessel Stenosis Vessel Segment LAD 70% stenosis proximal 1st Diagonal 90% stenosis proximal Circumflex 50% stenosis mid OM 3 95% stenosis proximal Ramus 50% stenosis proximal RCA 90% stenosis distal Hemo Personnel: + +--- ------+ Name Duty + +--- ------+ Emanuel Giraldo MD, MD 1 + +--- ------+ Hemodynamic Pressures: +----+ +-------- -+ + +----- -+---------+ Site Date Time Phase Systolic Diastolic ED Mean mmHg Name mmHg mmHg mmHg +----+ +-------- -+ + +----- -+---------+ LV 07/11/2024 9:28:40 AIR REST 90 5 7 AM +----+ +-------- -+ + +----- -+---------+ LV 07/11/2024 9:28:48 AIR REST 91 4 8 AM +----+ +-------- -+ + +----- -+---------+ LVp 07/11/2024 9:29:09 AIR REST 107 11 16 AM +----+ +-------- -+ + +----- -+---------+ AOp 07/11/2024 9:29:16 AIR REST 81 51 63 AM +----+ +-------- -+ + +----- -+---------+ AO 07/11/2024 9:30:30 AIR REST 70 39 59 AM +----+ +-------- -+ + +----- -+---------+ Complications: No in-lab complications observed. Cardiac Cath Post Procedure Notes: Post Procedure Diagnosis: Triple vessel disease. Blood Loss: Estimated blood loss during the procedure was 0 mls. Specimens Removed: Number of specimen(s) removed: none. Recommendations: Maximize medical therapy. Agressive risk factor modification efforts. Follow-up with cardiology clinic. Coronary artery bypass graft surgery. CONCLUSIONS: 1. Right coronary artery system dominance. 2. Multivessel coronary artery disease. 3. Prox LAD 70% calcified lesion. 4. 3rd OM 95% calcified lesion. 5. Mid RCA 80% calcified lesion; Distal RCA diffuse 90% calcified lesion. 6. Preserved LV systolic function. ICD [address]: [address] elevation (NSTEMI) myocardial infarction-I21.4 CPT Codes: Left Heart Cath (visualization of coronaries) and LV-24071; Moderate Sedation Services initial 15 minutes patient >[phone] [id number] Emanuel Kwong MD Performing Physician Final All data reviewed by me independently Assessment/Plan Assessment & Plan TIA (transient ischemic attack) Elevated troponin Elevated troponin level 68-year-old male with Acute CVA Right-sided weakness and dysarthria Elevated troponins Plan Cardiopulmonary monitor Follow vitals and clinical progress MRI brain with acute/subacute infarct in left central seventh and remote Infarction in adjacent left centrum semiovale Echocardiogram with LVEF 50%, no wall motion abnormalities. Impaired relaxation pattern of left ventricular diastolic filling. Patent dodd ovale Continue antiplatelets including aspirin and high intensity statins Plavix Appreciate neurology and cardiology recommendations Neurochecks Fall, aspiration, seizure precautions PT OT DEPARTMENT HELPER following Risk factors addressed To watch pressure closely and goal normotension now Currently hemodynamically stable SCDs for DVT prophylaxis Continue current medicines Supportive care symptomatic management Education counseling Patient had left heart catheterization 07/11/2024 showed multivessel disease, candidate for bypass and cardiology contacted cardiac surgery Prox LAD 70% calcified lesion; 1st Dg 90% calcified lesion (small vessel) 3rd OM 95% calcified lesion Distal RCA diffuse 80% calcified lesion Preserved LV systolic function Patient is scheduled for outpatient follow-up with cardiac surgery for further management Plan for rehab placement tomorrow Candelario Montana MD Occupational Therapy OT Treatment Patient Name: Cisco Saini Today's Date: 07/12/2024 Time Calculation Start Time: 910 Stop Time: 948 Time Calculation (min): 38 min Assessment: OT Assessment: pt with significant deficits from CVA needing intense OT services in order to ensure return to PLOF. continue with current OT POC Plan: Treatment Interventions: ADL retraining, Functional transfer training, UE strengthening/ROM, Endurance training, Patient/family training, Equipment evaluation/education, Neuromuscular reeducation, Fine motor coordination activities, Compensatory technique education OT Frequency: 4 times per week OT Discharge Recommendations: High intensity level of continued care OT Recommended Transfer Status: Assist of 2 Treatment Interventions: ADL retraining, Functional transfer training, UE strengthening/ROM, Endurance training, Patient/family training, Equipment evaluation/education, Neuromuscular reeducation, Fine motor coordination activities, Compensatory technique education Subjective Previous Visit Info: OT Last Visit OT Received On: 07/12/24 General: General Family/Caregiver Present: No Co-Treatment: PT Co-Treatment Reason: to maximize safety Prior to Session Communication: Bedside nurse (nurse states that splint can be removed from RUE wrist and pt is ok to use platform walker) Patient Position Received: Bed, 3 rail up, Alarm on General Comment: nurse is presents and pt agreeable to session. pt's nurse states that pt may be a candidate to transfer for cardiac care but pt is still ok to particpate in OT session. Precautions: Medical Precautions: Fall precautions Pain: Pain Assessment Pain Assessment: 0-10 0-10 (Numeric) Pain Score: 0 - No pain (c/o R wrist and hand feeling tight) Objective Cognition: Cognition Overall Cognitive Status: Within Functional Limits Orientation Level: Oriented X4 Impulsive: Mildly Coordination: Movements are Fluid and Coordinated: No Therapy/Activity: Balance/Neuromuscular Re-Education Balance/Neuromuscular Re-Education Activity Performed: Yes Balance/Neuromuscular Re-Education Activity 1: static sitting EOB improved this date. pt is able to sit EOB OR with no LOB. Balance/Neuromuscular Re-Education Activity 2: gentle PROM/massage to right fingers to encourage extension. pt is educated on self ROM of hand and fingers Balance/Neuromuscular Re-Education Activity 3: sit to stand transfer training with platform FWW. therapist placed RUE in platform. sit to stand from elevated bed mod A x 2. sit to stand transfer training from recliner chair mod A x 1 with good carry over of techniques learned Balance/Neuromuscular Re-Education Activity 4: weight shifting in standing in order to encourage pre mobility training and increased balance during ADLs. pt able to weight shift R/L while in platform FWW with mod A and max cues Balance/Neuromuscular Re-Education Activity 5: mobility training with platform FWW with overall mod A x 2. assist to weight shift and maintain upright posture. pt able to return demo carry over of cues. Outcome Measures:[facility] Daily Activity Putting on and taking off regular lower body clothing: Total Bathing (including washing, rinsing, drying): A lot Putting on and taking off regular upper body clothing: A lot Toileting, which includes using toilet, bedpan or urinal: Total Taking care of personal grooming such as brushing teeth: A lot Eating Meals: A little Daily Activity - Total Score: 11 Education Documentation Body Mechanics, taught by Sania Hess OT at 07/12/2024 12:36 PM. Learner: Patient Readiness: Acceptance Method: Explanation, Demonstration Response: Demonstrated Understanding, Needs Reinforcement Precautions, taught by Sania Hess OT at 07/12/2024 12:36 PM. Learner: Patient Readiness: Acceptance Method: Explanation, Demonstration Response: Demonstrated Understanding, Needs Reinforcement ADL Training, taught by Sania Hess OT at 07/12/2024 12:36 PM. Learner: Patient Readiness: Acceptance Method: Explanation, Demonstration Response: Demonstrated Understanding, Needs Reinforcement Education Comments No comments found. OP EDUCATION: Goals: Encounter Problems Encounter Problems (Active) ADLs Patient will perform UB bathing with minimal assist level of assistance (Progressing) Start: 07/10/24 Expected End: 07/24/24 Patient with complete upper body dressing with minimal assist level of assistance (Progressing) Start: 07/10/24 Expected End: 07/24/24 BALANCE Patient will maintain static standing balance during ADL task with moderate assist level of assistance in order to demonstrate decreased risk of falling and improved postural control. (Progressing) Start: 07/10/24 Expected End: 07/24/24 EXERCISE/STRENGTHENING pt will be able to return demo self PROM RUE (Progressing) Start: 07/10/24 Expected End: 07/24/24 TRANSFERS Patient will complete functional transfers with minimal assist and moderate assist level of assistance. (Progressing) Start: 07/10/24 Expected End: 07/24/24 Physical Therapy Physical Therapy Treatment Patient Name: Cisco Saini Today's Date: 07/12/2024 Time Calculation Start Time: 910 Stop Time: 948 Time Calculation (min): 38 min 318/318-A Assessment/Plan PT Assessment PT Assessment Results: Decreased strength, Decreased range of motion, Decreased endurance, Impaired balance, Decreased mobility Rehab Prognosis: Good Evaluation/Treatment Tolerance: (Limited by weakness, endurance) Medical Staff Made Aware: Yes Strengths: Ability to acquire knowledge, Capable of completing ADLs semi/independent, Housing layout, Insight into problems, Premorbid level of function Barriers to Participation: Comorbidities End of Session Communication: PCT/NA/CTA Assessment Comment: Pt able to initiate gait training this date with platform walker and max A x2 with chair follow. He performs 3 sit to stand transfers, with mod A x2 and 1x with mod A x1. He will continue to benefit from therapy to further progress mobility safely. End of Session Patient Position: Up in chair, Alarm on IP OR SWING BED PT PLAN Inpatient or Swing Bed: Inpatient PT Plan Treatment/Interventions: Strengthening, Endurance training, Range of motion, Therapeutic exercise, Therapeutic activity, Home exercise program PT Plan: Ongoing PT PT Frequency: Daily PT Discharge Recommendations: High intensity level of continued care Equipment Recommended upon Discharge: Wheeled walker, Platform attachment, Bedside commode PT Recommended Transfer Status: Assist x1, Assist x2, Total assist Subjective Current Problem: 1. TIA (transient ischemic attack) 2. Elevated troponin level Transthoracic Echo (TTE) Complete Transthoracic Echo (TTE) Complete Case Request Poker Machine Attendant: Left Heart Cath, With LV Case Request Poker Machine Attendant: Left Heart Cath, With LV Cardiac Catheterization Procedure Cardiac Catheterization Procedure 3. Non-ST elevation (NSTEMI) myocardial infarction (Multi) Cardiac Catheterization Procedure Patient Active Problem List Diagnosis TIA (transient ischemic attack) Elevated troponin Elevated troponin level General Visit Information: General Reason for Referral: Stroke Referred By: Nigel Family/Caregiver Present: No Co-Treatment: OT Co-Treatment Reason: to maximize pt safety Prior to Session Communication: Bedside nurse (cleared to participate) Patient Position Received: Bed, 3 rail up, Alarm on (RN present) General Comment: Pt agreeable to PT treatment. Home Living: Home Living Home Living Comments: Lives in house alone with 2 [address] no rail. 1st floor set up with laundry in basement. No grab bars or shower chair. Prior Level of Function: Prior Function Per Pt/Caregiver Report Prior Function Comments: IND with all activities- driving, dressing, cleaning, cooking. No issues with navigation of house or community. No AD. 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 Precautions: Precautions Medical Precautions: Fall precautions Vital Signs: Objective Pain: Pain Assessment Pain Assessment: 0-10 0-10 (Numeric) Pain Score: 0 - No pain Cognition: Cognition Overall Cognitive Status: Within Functional Limits Orientation Level: Oriented X4 Impulsive: Mildly General Assessments: General Observation General Observation: R facial droop, dysarthria Activity Tolerance Endurance: Tolerates 10 - 20 min exercise with multiple rests Strength Strength Comments: RLE MMT hip flex 3-/5, knee ext 2/5, ankle DF 1/5, ankle PF 1/5 Coordination Movements are Fluid and Coordinated: No Lower Body Coordination: severe deficits RLE due to weakness Alternating Toe Taps: Impaired (unable to complete) Heel to Dasilva: Impaired (unable to complete) Postural Control Posture Comment: R lateral lean. (moments of CGA to correct) Static Sitting Balance Static Sitting-Comment/Number of Minutes: Fair + Dynamic Sitting Balance Dynamic Sitting-Comments: Fair - Static Standing Balance Static Standing-Level of Assistance: Maximum assistance (x2 assist) Static Standing-Comment/Number of Minutes: R knee buckling Dynamic Standing Balance Dynamic Standing-Level of Assistance: Maximum assistance (x2 assist) Dynamic Standing-Comments: Poor Functional Assessments: Bed Mobility Bed Mobility: Yes Bed Mobility 1 Bed Mobility 1: Supine to sitting Level of Assistance 1: Moderate assistance Bed Mobility Comments 1: HOB elevated. Assist to bring RLE over EOB and for trunk control. Transfers Transfer: Yes Transfer 1 Technique 1: Sit to stand, Stand to sit Transfer Device 1: Gait belt, Platform walker Transfer Level of Assistance 1: Moderate assistance Trials/Comments 1: Mod A x2 for 2 initial trials. Mod A x1 for 3rd trial. Assist for lift, balance, R knee blocking, and RUE assist. Transfers 2 Transfer From 2: Bed to Transfer to 2: Chair with arms Technique 2: Squat pivot Transfer Device 2: Gait belt Transfer Level of Assistance 2: Moderate assistance, +2 Trials/Comments 2: R knee blocked, R UE assisted. Pt able to reach for armrest of chair with LUE and pivot on LLE. Ambulation/Gait Training Ambulation/Gait Training Performed: Yes Ambulation/Gait Training 1 Surface 1: Level tile Device 1: Platform walker right (FWW) Gait Support Devices: Gait belt Assistance 1: Maximum assistance, Moderate verbal cues (x2 assist) Quality of Gait 1: Narrow base of support, Inconsistent stride length, Decreased step length, Foot drop/steppage gait, Knee(s) buckle Comments/Distance (ft) 1: Pt ambulates ~5' with max A x2 and R platform walker. Max A for balance, weight shift, and R foot placement. R knee tessa requiring assist. Cues for sequencing and for weightshifting. Chair follow for safety and gait belt donned. PT assist with RUE as pt is unable to senior mobile developer platform attachment. Extremity/Trunk Assessments: RLE RLE : (PROM WFL. AROM impaired due to weakness.) LLE LLE : (ROM WFL) Outcome Measures: [facility] Basic Mobility Turning from your back to your side while in a flat bed without using bedrails: A little Moving from lying on your back to sitting on the side of a flat bed without using bedrails: A lot Moving to and from bed to chair (including a wheelchair): A lot Standing up from a chair using your arms (e.g. wheelchair or bedside chair): A lot To walk in hospital room: Total Climbing 3-5 steps with railing: Total Basic Mobility - Total Score: 11 Goals: Encounter Problems Encounter Problems (Active) Balance STG - Maintains static standing balance with LUE support min A x1 with FWW for safety with ADLs. (Progressing) Start: 07/09/24 Expected End: 07/23/24 Mobility STG - Patient will ambulate 15 ft min A x1 with FWW for reduced risk of falls. (Progressing) Start: 07/09/24 Expected End: 07/23/24 STG - Patient will ascend and descend 2 stairs with LUE support for safe discharge. (Progressing) Start: 07/09/24 Expected End: 07/23/24 PT Transfers STG - Patient will transfer sit to and from stand min A x1 with FWW for increased independence. (Progressing) Start: 07/09/24 Expected End: 07/23/24 Education Documentation Mobility Training, taught by Shanice Ibarra PT at 07/12/2024 12:27 PM. Learner: Patient Readiness: Acceptance Method: Explanation Response: Verbalizes Understanding Comment: Educated pt on sequencing with gait training and safe use of platform walker. Per medical team, patient requires cardiac surgery. [facility] at [facility]; Per [facility] Auth Team, patient has auth for acute rehab. SW sent message to cardiac team, charge nurse, and hospitalist asking about timing of cardiac surgery with respect to patient's acute rehab stay; awaits response. SW/DSC to continue to send updated notes to [facility] via [facility] as notes available. - 1120: Per cardiac SHIPPING RECEIVING MANAGER/Arnoldo, cardiac team will discuss plan with Dr. Kwong this morning after another mtg; SW awaits outcome of same. - 1250: Per cardiac team, plan is for patient to transfer to [facility] for cardiac procedure prior to going to [facility]. SW to update [facility], as well as Care Transitions/SW at hospital of transfer pending confirmation of same. - 1310: SW met with patient and patient's partner/Pearl at bedside to review plan. Patient/partner in agreement with same. Patient also in agreement for patient's son/Ghanshyam Saini ([phone]) to be listed as another emergency contact. Nursing added same to patient's EMR. - 1400: Per Dr. Montana, cardiology cannot accept patient for 6 - 8 weeks post stroke due to risk of brain bleed. SW asked medical team to clarify whether or not patient will be safe to participate in acute rehab given patient's cardiac condition; awaits response. - 1420: Per cardiology SHIPPING RECEIVING MANAGER/Arnoldo, patient is safe to discharge to acute rehab. Per [facility]/Rosal[facility], [facility] is still able to accept patient. Medical team to review change in plan with patient. - 1530: SW met with hospitalist and patient at bedside to review plan. Patient expressed understanding that cardiac surgery is not yet a safe plan. Patient agreeable to discharge to acute rehab tomorrow. Per patient's request, SW to phone patient's partner/Pearl. Plan for patient to discharge to [facility] when medically ready; auth received on 07/12. Care Transitions to follow and assist. SENIA Gil Images from the original note were not included. Cardiology Inpatient Progress Note [facility] ASSESSMENT AND PLAN NSTEMI Coronary artery disease -Troponin trend [phone] -Coronary angiography 07/11/2024 showed multivessel coronary disease including proximal LAD, mid and distal RCA, and OM 3. CABG consult, referral sent to cardiothoracic surgeon Dr. Elisabeth Atkins for outpatient surgery evaluation. -Current medical therapy includes aspirin, Plavix, atorvastatin 40 mg. Will add Toprol and lisinopril per OR GDMT. -Due to patient needing inpatient rehab we may have to transfer him to tertiary care facility for inpatient CABG evaluation or complex PCI. Will defer to staff attending clinical trials manager Dr. Kwong Stroke -Brain MRI shows acute/subacute lacunar infarct and remote lacunar infarct -Continue with aspirin, Plavix and statin therapy -Recommend neurology follow-up Subjective denies chest pain, shortness of breath, palpitations, leg edema, fever, chills, orthopnea, paroxysmal nocturnal dyspnea or syncope. Objective: Intake & Output Net IO Since Admission: 476.09 mL [07/12/24 0842] Today's Weight: Vitals: 07/08/24 0330 Weight: 85.6 kg (188 lb 11.4 oz) PHYSICAL EXAM Physical Exam Vitals and nursing note reviewed. Constitutional: General: He is not in acute distress. HENT: Head: Normocephalic and atraumatic. Mouth/Throat: Mouth: Mucous membranes are moist. Pharynx: Oropharynx is clear. Eyes: General: No scleral icterus. Pupils: Pupils are equal, round, and reactive to light. Cardiovascular: Rate and Rhythm: Normal rate and regular rhythm. Pulses: Normal pulses. Heart sounds: Normal heart sounds, S1 normal and S2 normal. No murmur heard. No friction rub. Pulmonary: Effort: Pulmonary effort is normal. Breath sounds: Normal breath sounds. Abdominal: General: Bowel sounds are normal. There is no distension. Palpations: Abdomen is soft. Tenderness: There is no abdominal tenderness. Musculoskeletal: General: No swelling. Normal range of motion. Cervical back: Normal range of motion and neck supple. Right lower leg: No edema. Left lower leg: No edema. Skin: General: Skin is warm and dry. Capillary Refill: Capillary refill takes less than 2 seconds. Findings: No rash. Neurological: Mental Status: He is alert and oriented to person, place, and time. Cranial Nerves: Cranial nerve deficit and facial asymmetry present. Motor: Weakness present. Coordination: Coordination abnormal. Comments: Right sided facial and limb weakness Psychiatric: Mood and Affect: Mood normal. Behavior: Behavior normal. Labs: CMP: Recent Labs 07/12/24 0507/11/2451607/10/2442207/09/2451307/08/24416 NA 135* 136 137 138 137 K 4.2 4.1 3.8 3.8 3.7 CL 103 105 105 107 106 CO2 23 23 23 23 22 ANIONGAP 13 12 13 12 13 BUN 16 14 13 12 20 CREATININE 1.11 1.17 1.08 1.11 1.11 EGFR 72 67 74 72 72 Recent Labs 07/07/242237 ALBUMIN 4.3 ALKPHOS 85 ALT 27 AST 26 BILITOT 0.5 CBC: Recent Labs 07/12/24 0516 07/11/24 0507/10/243 07/09/24 0514 07/08/24417 WBC 10.1 9.8 8.0 6.1 6.1 HGB 15.6 15.5 15.1 14.8 13.6 HCT 46.5 46.6 45.4 44.6 41.2 PLT 245 247 226 225 215 MCV 95 94 95 95 96 COAG: Recent Labs 07/10/24 04207/09/24 0514 07/08/24195207/08/246 07/07/242237 INR -- -- -- -- 1.0 HAUF 0.3 0.3 0.3 < > -- < > = values in this interval not displayed. ABO: No results for input(s): ABO in the last 28340 hours. HEME/ENDO: Recent Labs 08/17/24 0418 HGBA1C 5.8* CARDIAC: Recent Labs 07/08/24 0417 07/07/24 2342 07/07/24 2238 TROPHS 526* 546* 646* Recent Labs 07/08/24416 CHOL 235* HDL 46.0 TRIG 75 Inpatient Medications: Current Facility-Administered Medications: acetaminophen (Tylenol) tablet 650 mg, 650 mg, oral, q4h PRN OR acetaminophen (Tylenol) oral liquid 650 mg, 650 mg, nasogastric tube, q4h PRN OR [DISCONTINUED] acetaminophen (Tylenol) suppository 650 mg, 650 mg, rectal, q4h PRN, Ghanshyam Kearns, DO aspirin chewable tablet 81 mg, 81 mg, oral, Daily, TAM Sneed, 81 mg at 07/11/24 0742 atorvastatin (Lipitor) tablet 40 mg, 40 mg, oral, Nightly, TAM Sneed, 40 mg at 07/11/24 2130 clopidogrel (Plavix) tablet 75 mg, 75 mg, oral, Daily, Arnoldo Marinelli APRN-HERI, 75 mg at 07/11/24 0745 [] hydrALAZINE (Apresoline) injection 10 mg, 10 mg, intravenous, q20 min PRN FOLLOWED BY hydrALAZINE (Apresoline) tablet 25 mg, 25 mg, oral, q6h PRN, TAM Sneed oxygen (O2) therapy, , inhalation, Continuous PRN - O2/gases, TAM Sneed, 21 percent at 07/12/24 0709 oxymetazoline (Afrin) 0.05 % nasal spray 2 spray, 2 spray, Each Nostril, q12h PRN, Vitaliy Klein MD perflutren protein A microsphere (Optison) injection 0.5 mL, 0.5 mL, intravenous, Once in imaging, TAM Sneed polyethylene glycol (Glycolax, Miralax) packet 17 g, 17 g, oral, Daily, Arnoldo Marinelli APRN-HERI, 17 g at 07/10/24 0952 sulfur hexafluoride microsphr (Lumason) injection 24.28 mg, 2 mL, intravenous, Once in imaging, TAM Sneed VITALS Vitals: 07/12/24 0729 BP: 123/76 Pulse: 78 Resp: 16 Temp: 36.4 C (97.5 F) SpO2: 91% Cardiology will continue to follow. Thank you for this interesting clinical case and allowing me to participate in the care of this patient. Please reach me out if you have any questions or if you need any clarifications regarding the patient's care. Disclaimer: This note was dictated by speech recognition, and every effort has been made to prevent any error in certified registered locksmith, however minor errors may be present Arnoldo Marinelli, MSN, TAM, ACNPC-AG, CCRN Division of Cardiovascular Medicine [facility] Cisco Saini is a 68 y.o. male on day 2 of admission presenting with TIA (transient ischemic attack). Subjective Patient tearful today Slurred speech facial asymmetry Right-sided weakness Objective Physical Exam General Appearance: AAO x 3, Skin: skin color pink, warm, and dry; no suspicious rashes or lesions Eyes : PERRL, EOM's intact ENT: mucous membranes pink and moist Neck: normocephalic Respiratory: lungs clear to auscultation anteriorly; no wheezing, rhonchi, or crackles. Heart: regular rate and rhythm. Abdomen: Nondistended, positive bowel sounds x4, soft, nontender Extremities: no edema Peripheral pulses: normal x4 extremities Neuro: Awake, weakness on right side, facial asymmetry with slight right facial droop. Last Recorded Vitals Blood pressure (!) 163/93, pulse 86, temperature 36.8 C (98.3 F), temperature source Temporal, resp. rate 15, height 1.651 m (5' 5), weight 85.6 kg (188 lb 11.4 oz), SpO2 93%. Intake/Output last 3 Shifts: I/O last 3 completed shifts: In: 960 (11.2 mL/kg) [P.O.:960] Out: 875 (10.2 mL/kg) [Urine:875 (0.3 mL/kg/hr)] Weight: 85.6 kg Relevant Results Scheduled medications aspirin, 81 mg, oral, Daily atorvastatin, 40 mg, oral, Nightly clopidogrel, 75 mg, oral, Daily perflutren protein A microsphere, 0.5 mL, intravenous, Once in imaging polyethylene glycol, 17 g, oral, Daily sulfur hexafluoride microsphr, 2 mL, intravenous, Once in imaging Continuous medications PRN medications PRN medications: acetaminophen OR acetaminophen OR acetaminophen, acetaminophen OR acetaminophen OR acetaminophen, [] hydrALAZINE FOLLOWED BY hydrALAZINE, oxygen Results for orders placed or performed during the hospital encounter of 07/07/24 (from the past 24 hour(s)) POCT GLUCOSE Result Value Ref Range POCT Glucose 138 (H) 74 - 99 mg/dL CBC Result Value Ref Range WBC 9.8 4.4 - 11.3 x10*3/uL nRBC 0.0 0.0 - 0.0 /100 WBCs RBC 4.94 4.50 - 5.90 x10*6/uL Hemoglobin 15.5 13.5 - 17.5 g/dL Hematocrit 46.6 41.0 - 52.0 % MCV 94 80 - 100 fL MCH 31.4 26.0 - 34.0 pg MCHC 33.3 32.0 - 36.0 g/dL RDW 13.2 11.5 - 14.5 % Platelets 247 150 - 450 x10*3/uL Basic metabolic panel Result Value Ref Range Glucose 114 (H) 74 - 99 mg/dL Sodium 136 136 - 145 mmol/L Potassium 4.1 3.5 - 5.3 mmol/L Chloride 105 98 - 107 mmol/L Bicarbonate 23 21 - 32 mmol/L Anion Gap 12 10 - 20 mmol/L Urea Nitrogen 14 6 - 23 mg/dL Creatinine 1.17 0.50 - 1.30 mg/dL eGFR 67 >60 mL/min/1.73m*2 Calcium 8.9 8.6 - 10.3 mg/dL POCT GLUCOSE Result Value Ref Range POCT Glucose 123 (H) 74 - 99 mg/dL POCT GLUCOSE Result Value Ref Range POCT Glucose 117 (H) 74 - 99 mg/dL POCT GLUCOSE Result Value Ref Range POCT Glucose 110 (H) 74 - 99 mg/dL All data reviewed by me independently Assessment/Plan Assessment & Plan TIA (transient ischemic attack) Elevated troponin Elevated troponin level 68-year-old male with Acute CVA Right-sided weakness and dysarthria with CVA Elevated troponin NSTEMI Plan Cardiopulmonary monitoring, follow vitals and clinical progress MRI brain with acute/subacute infarct in left centrum semiovale. And remote lacunar infarction in adjacent left centrum semiovale Echocardiogram with LVEF 60%, no wall motion abnormalities. Impaired relaxation pattern of left ventricular diastolic filling. Patent dodd ovale Continue antiplatelets including aspirin and high intensity statins Plavix Neurochecks per protocol Fall, aspiration, seizure precautions PT OT DEPARTMENT HELPER following Risk factors To watch pressure and start antihypertension meds if elevated Currently hemodynamically stable SCDs for DVT prophylaxis Continue current medicines Supportive care symptomatic management Education counseling Patient had left heart catheterization 07/11/2024 showed multivessel disease, candidate for bypass and cardiology contacted cardiac surgery Prox LAD 70% calcified lesion; 1st Dg 90% calcified lesion (small vessel) 3rd OM 95% calcified lesion Distal RCA diffuse 80% calcified lesion Preserved LV systolic function Patient is scheduled for outpatient follow-up with cardiac surgery for further management Daily CBC BMP Possible rehab planning tomorrow if stable Candelario Montana MD Physical Therapy Therapy Communication Note Patient Name: Cisco Saini Today's Date: 07/11/2024 Discipline: Physical Therapy Missed Visit Reason: Missed 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 Glass Beveller left voicemail message for [facility] in [place], and spoke with [facility]/Rosalie whose team is still considering patient's referral. - 1200: SW received a message from [facility] stating that they are able to accept patient. SW to meet with patient at bedside to review discharge plan. - 1245: [facility]/Jada is requesting that referral be faxed as [facility] is difficult for [facility] to use. SW met with patient at bedside to review plan. Patient stated that patient would prefer [facility]. Patient also asked about [place] paperwork that may have been sent to [facility], but patient doesn't know where it is. Patient agreed for SW to update patient's ex-/current partner/Pearl re: same. SW left message for same; awaits call back. SW to request that [facility] Auth Team submit for insurance auth. SW/DSC to continue to send updated notes to [facility] via [facility] as notes available. - 1715: SW spoke with patient's ex-/current partner/Pearl re: plan, per patient's request. Partner/Pearl wishes for patient/Pearl's son/Ghanshyam to be listed as emergency contact. SW to ask patient if patient wishes for same. Partner/Pearl also asking about call she received from Cardiac Surgery ([phone]) stating that they wish to schedule an appointment for patient. Partner/Pearl asked SW to phone same tomorrow to inform Cardiac Surgery that patient is in [facility]. Plan for patient to discharge to [facility] pending insurance auth. Care Transitions to follow and assist. 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 Patient denies any chest pain, shortness of breath, palpitations, dizziness or syncope. Patient is hemodynamically stable. Still with Weakness R arm and rhyme deviation / slurred speech. Overnight Events: No Objective Data: Last Recorded Vitals: Vitals: 07/11/24 0400 07/11/24 0643 07/11/24 0734 07/11/24 0803 BP: 130/78 (!) 158/91 151/90 BP Location: Left arm Left arm Left arm Patient Position: Lying Lying Lying Pulse: 78 85 73 Resp: 18 18 15 Temp: 36.4 C (97.5 F) 37.6 C (99.6 F) 36.3 C (97.3 F) TempSrc: Temporal Temporal Temporal SpO2: 93% 92% 96% 96% Weight: Height: Last Labs: CBC - 07/11/2024: 5:17 AM 9.8 15.5 247 46.6 CMP - 07/11/2024: 5:17 AM 8.9 7.0 26 --- 0.5 _ 4.3 27 85 PTT - 07/07/2024: 10:38 PM 1.0 11.2 29 TROPHS Date/Time Value Ref Range Status 07/08/2024 04:17 AM 526 0 - 20 ng/L Final Comment: Previous result verified on 07/07/20242314 on specimen/case [id number] called with component [facility] for procedure Troponin I, High Sensitivity with value 646 ng/L. 07/07/2024 11:42 PM 546 0 - 20 ng/L Final Comment: Previous result verified on 07/07/20242314 on specimen/case [id number] called with component [facility] for procedure Troponin I, High Sensitivity with value 646 ng/L. 07/07/2024 10:38 PM 646 0 - 20 ng/L Final HGBA1C Date/Time Value Ref Range Status 07/08/2024 04:18 AM 5.8 see below % Final LDLCALC Date/Time Value Ref Range Status 07/08/2024 04:17 AM 174 <=99 mg/dL Final Comment: Near Borderline AGE Desirable Optimal High High Very High 0-19 Y 0 - 109 --- 110-129 >/= 130 ---- 20-24 Y 0 - 119 --- 120-159 >/= 160 ---- >24 Y 0 - 99 100-129 130-159 160-189 >/=190 VLDL Date/Time Value Ref Range Status 07/08/2024 04:17 AM 15 0 - 40 mg/dL Final Last I/O: I/O last 3 completed shifts: In: 960 (11.2 mL/kg) [P.O.:960] Out: 875 (10.2 mL/kg) [Urine:875 (0.3 mL/kg/hr)] Weight: 85.6 kg Past Cardiology Tests (Last 3 Years): EKG: ECG 12 lead Echo: Transthoracic Echo (TTE) Complete 07/10/2024 Ejection Fractions: EF Date/Time Value Ref Range Status 07/10/2024 07:18 AM 63 % Cath: No results found for this or any previous visit from the past 1095 days. Stress Test: No results found for this or any previous visit from the past 1095 days. Cardiac Imaging: No results found for this or any previous visit from the past 1095 days. Inpatient Medications: Scheduled medications Medication Dose Route Frequency aspirin 81 mg oral Daily atorvastatin 40 mg oral Nightly clopidogrel 75 mg oral Daily perflutren protein A microsphere 0.5 mL intravenous Once in imaging polyethylene glycol 17 g oral Daily sulfur hexafluoride microsphr 2 mL intravenous Once in imaging PRN medications Medication acetaminophen Or acetaminophen Or acetaminophen acetaminophen Or acetaminophen Or acetaminophen hydrALAZINE Followed by hydrALAZINE labetaloL oxygen Continuous Medications Medication Dose Last Rate Physical Exam: General: alert, oriented and in no acute distress Neck: supple; trachea midline; no masses; no JVD Chest: clear breath sounds bilaterally; no wheezing Cardio: regular rhythm, S1S2 normal, no murmurs Abdomen: Soft, non-tender, non-distension, no organomegaly Extremities: no clubbing/cyanosis/edema Psychiatric: Normal mood and affect; diminished strength in R arm; slurred speech with rhyme deviation Assessment/Plan Mr. Cisco Saini is a 68 y.o. former smoker male being consulted by the Cardiology team for troponin leak. Patient with prior medical history significant for obesity. He presented to ED [facility] on 07/07/2024 complaining of right-sided weakness. He endorses that he lost strength in the right side of his body. Before this he was feeling pretty normal. His symptoms improved in the hospital. He denied chest pain, shortness of breath, palpitations, leg edema, lightheadedness, headaches, fever, chills, orthopnea, paroxysmal nocturnal dyspnea or syncope. He lives at home independently. EKG shows normal sinus rhythm with no signs of acute ischemic changes. Trop 526-646. He was admitted for clinical compensation. Assessment # Troponin Elevation - Trop 526-646 - Troponin elevation is likely attributable to non-ischemic myocardial injury due to myocardial imbalance in oxygen supply/demand secondary to underlying stroke. However, due to very elevated troponin levels, would suggest ischemia investigation. - EKG shows normal sinus rhythm with no signs of acute ischemic changes. - The echocardiogram showed normal LVEF 60% with no wall motion abnormalities. Impaired relaxation pattern of left ventricle diastolic filling. Patent foramen ovale. - Would suggest to continue current medical management per primary team. - Would suggest to keep ASA and high intensity statins if no contra-indications. - Please refer the patient to our Cardiology clinic upon discharge. - Would suggest assessment of myocardial ischemia with Left Heart Catheterization. - Please keep NPO. # CVA / Stroke - MRI brain: Acute/subacute lacunar infarction in the left centrum semiovale measuring a proximally 1 cm x 1 cm x 2 cm in size *Remote lacunar infarction with hemosiderin deposition in the adjacent left centrum semiovale *Volume loss with small-vessel ischemic change - Keep ASA, statins - Follow up with Neurology team. Thank you for allowing me to participate in the care of this patient. Please reach me out if you have any questions or if you need any clarifications regarding the patient's care. Peripheral IV 07/07/24 20 G Right;Dorsal Hand (Active) Site Assessment Clean;Dry;Intact 07/10/242099 Dressing Status Clean;Dry 07/10/242099 Number of days: 4 Peripheral IV 07/07/24 20 G Left Antecubital (Active) Site Assessment Clean;Dry;Intact 07/10/242099 Dressing Status Clean;Dry 07/10/242099 Number of days: 4 Code Status: Full Code Emanuel Kwong MD Cardiology Cisco Saini is a 68 y.o. male on day 1 of admission presenting with TIA (transient ischemic attack). Subjective Slurred speech, right facial droop, facial asymmetry Right-sided weakness NIH 10 Objective Physical Exam General Appearance: AAO x 3, Skin: skin color pink, warm, and dry; no suspicious rashes or lesions Eyes : PERRL, EOM's intact ENT: mucous membranes pink and moist Neck: normocephalic Respiratory: lungs clear to auscultation anteriorly; no wheezing, rhonchi, or crackles. Heart: regular rate and rhythm. Abdomen: Nondistended, positive bowel sounds x4, soft, nontender Extremities: no edema Peripheral pulses: normal x4 extremities Neuro: Awake, weakness on right side, facial asymmetry with slight right facial droop. Last Recorded Vitals Blood pressure 137/78, pulse 80, temperature 36.7 C (98.1 F), temperature source Temporal, resp. rate 16, height 1.651 m (5' 5), weight 85.6 kg (188 lb 11.4 oz), SpO2 95%. Intake/Output last 3 Shifts: I/O last 3 completed shifts: In: 1264.8 (14.8 mL/kg) [P.O.:960; I.V.:304.8 (3.6 mL/kg)] Out: 875 (10.2 mL/kg) [Urine:875 (0.3 mL/kg/hr)] Weight: 85.6 kg Relevant Results Scheduled medications aspirin, 81 mg, oral, Daily atorvastatin, 40 mg, oral, Nightly [START ON 07/11/2024] clopidogrel, 75 mg, oral, Daily perflutren protein A microsphere, 0.5 mL, intravenous, Once in imaging polyethylene glycol, 17 g, oral, Daily sulfur hexafluoride microsphr, 2 mL, intravenous, Once in imaging Continuous medications PRN medications PRN medications: acetaminophen OR acetaminophen OR acetaminophen, acetaminophen OR acetaminophen OR acetaminophen, hydrALAZINE FOLLOWED BY [START ON 07/11/2024] hydrALAZINE, labetaloL, oxygen Results for orders placed or performed during the hospital encounter of 07/07/24 (from the past 24 hour(s)) Heparin Assay, UFH Result Value Ref Range Heparin Unfractionated 0.3 See Comment Below for Therapeutic Ranges IU/mL CBC Result Value Ref Range WBC 8.0 4.4 - 11.3 x10*3/uL nRBC 0.0 0.0 - 0.0 /100 WBCs RBC 4.76 4.50 - 5.90 x10*6/uL Hemoglobin 15.1 13.5 - 17.5 g/dL Hematocrit 45.4 41.0 - 52.0 % MCV 95 80 - 100 fL MCH 31.7 26.0 - 34.0 pg MCHC 33.3 32.0 - 36.0 g/dL RDW 13.2 11.5 - 14.5 % Platelets 226 150 - 450 x10*3/uL Basic metabolic panel Result Value Ref Range Glucose 108 (H) 74 - 99 mg/dL Sodium 137 136 - 145 mmol/L Potassium 3.8 3.5 - 5.3 mmol/L Chloride 105 98 - 107 mmol/L Bicarbonate 23 21 - 32 mmol/L Anion Gap 13 10 - 20 mmol/L Urea Nitrogen 13 6 - 23 mg/dL Creatinine 1.08 0.50 - 1.30 mg/dL eGFR 74 >60 mL/min/1.73m*2 Calcium 8.6 8.6 - 10.3 mg/dL Transthoracic Echo (TTE) Complete Result Value Ref Range LVOT diam 2.10 cm MV E/A ratio 0.74 AV pk mena 1.62 m/s AV mn grad 5.0 mmHg LV Biplane EF 72 % Tricuspid annular plane systolic excursion 1.6 cm LA vol index A/L 26.9 ml/m2 LV EF 63 % LVIDd 3.21 cm RVSP 26.4 mmHg Aortic Valve Area by Continuity of Peak Velocity 2.67 cm2 Aortic Valve Area by Continuity of VTI 2.43 cm2 AV pk grad 10.5 mmHg LV A4C EF 71.7 POCT GLUCOSE Result Value Ref Range POCT Glucose 109 (H) 74 - 99 mg/dL POCT GLUCOSE Result Value Ref Range POCT Glucose 142 (H) 74 - 99 mg/dL POCT GLUCOSE Result Value Ref Range POCT Glucose 139 (H) 74 - 99 mg/dL MR brain w and wo IV contrast Result Date: 07/10/2024 Interpreted By: Rony Louise, STUDY: MR BRAIN W AND WO IV CONTRAST; 07/10/2024 7:55 am INDICATION: Signs/Symptoms:TIA. COMPARISON: None. ACCESSION NUMBER(S): [id number] ORDERING CLINICIAN: GHANSHYAM KEARNS TECHNIQUE: The brain was studied in the sagittal axial and coronal planes utilizing FLAIR, T1 and T2 weighted images Following intravenous injection of gadolinium contrast, T1 weighted fat suppressed multiplanar images were also performed. FINDINGS: There is slight prominence of the cortical sulci and sylvian fissures. There is mild ventricular dilatation. There are patchy and confluence foci of abnormal signal within the periventricular and subcortical white matter bilaterally. These are compatible with minimal small vessel ischemic changes. These nonspecific findings could also be produced by a demyelinating or post inflammatory process. The visualized skull base paranasal sinuses and orbital structures are unremarkable. Diffusion weighted images and associated ADC maps of the brain demonstrate acute/subacute lacunar infarction in the left centrum semiovale with involvement of the posterior limb of the internal capsule. No associated hemorrhage or mass effect. Gradient echo T2 weighted images demonstrate a hemosiderin lined cleft in the left centrum semiovale and body of the left caudate nucleus consistent with previous hemorrhage or hemorrhagic infarction.. Following intravenous injection of there is no abnormal enhancement. There is normal contrast opacification of the dural venous sinuses. 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 Notification was initiated on 07/10/2024 at 10:22 am by Rony Louise. (-OCF-) Signed by: Rony Louise 07/10/2024 10:22 AM Dictation workstation: [id number] Transthoracic Echo (TTE) Complete Result Date: 07/10/2024 [place] [address] [id number], TRANSTHORACIC ECHOCARDIOGRAM REPORT Patient Name: CISCO Quinones Physician: [id number] Jay Alves MD Study Date: 07/10/2024 Ordering Provider: [id number] GHANSHYAM KEARNS MRN/PID: [id number] Fellow: Nurse: Lisset Contreras RN Date of /Age: 1 1955 / 68 years Bottom Cementer: Candelaria Decker RVT, RCS Gender: M Additional Staff: Height: 165.10 cm Admit Date: 07/07/2024 Weight: 85.28 kg Admission Status: Inpatient - Routine BSA / BMI: 1.93 m2 / 31.29 kg/m2 Department Location: [address] Blood Pressure: 131 /81 mmHg Study Type: TRANSTHORACIC ECHO (TTE) COMPLETE Diagnosis/ICD: Elevated Troponin-R79.89; Transient cerebral ischemic attack, unspecified (NOT on LCD)-G45.9 Indication: Transischemic Attack CPT Codes: Echo Complete w Full Doppler-11677 Patient History: Pertinent History: No previous echo. Study Detail: The following Echo studies were performed: 2D, M-Mode, Doppler and color flow. Definity used as a contrast agent for endocardial border definition and agitated saline used as a contrast agent for intraseptal flow evaluation. Total contrast used for this procedure was 2 mL via IV push. The patient was awake. PHYSICIAN INTERPRETATION: Left Ventricle: The left ventricular systolic function is normal, with a visually estimated ejection fraction of 60-65%. There are no regional wall motion abnormalities. The left ventricular cavity size is normal. There is mild concentric left ventricular hypertrophy. Spectral Doppler shows an impaired relaxation pattern of left ventricular diastolic filling. Left Atrium: The left atrium is normal in size. Right Ventricle: The right ventricle is normal in size. There is normal right ventricular global systolic function. Right Atrium: The right atrium is normal in size. Aortic Valve: The aortic valve is trileaflet. The aortic valve dimensionless index is 0.70. There is no evidence of aortic valve regurgitation. The peak instantaneous gradient of the aortic valve is 10.5 mmHg. The mean gradient of the aortic valve is 5.0 mmHg. Mitral Valve: The mitral valve is normal in structure. There is trace mitral valve regurgitation. Calcified nodule on poterior leaflet of mitral valve. Tricuspid Valve: The tricuspid valve is structurally normal. No evidence of tricuspid regurgitation. Pulmonic Valve: The pulmonic valve is not well visualized. There is mild pulmonic valve regurgitation. Pericardium: There is no pericardial effusion noted. Aorta: The aortic root is normal. CONCLUSIONS: 1. The left ventricular systolic function is normal, with a visually estimated ejection fraction of 60-65%. 2. Spectral Doppler shows an impaired relaxation pattern of left ventricular diastolic filling. 3. There is normal right ventricular global systolic function. 4. Bubble study is positive for a right to left shunt, suggestive of a patent foramen ovale. QUANTITATIVE DATA SUMMARY: 2D MEASUREMENTS: Normal Ranges: Ao Root d: 2.80 cm (2.0-3.7cm) LAs: 3.60 cm (2.7-4.0cm) IVSd: 1.19 cm (0.6-1.1cm) LVPWd: 1.13 cm (0.6-1.1cm) LVIDd: 3.21 cm (3.9-5.9cm) LVIDs: 2.34 cm LV Mass Index: 59.1 g/m2 LV % FS 27.1 % LA VOLUME: Normal Ranges: LA Vol A4C: 42.4 ml (22+/-6mL/m2) LA Vol A2C: 46.8 ml LA Vol BP: 51.8 ml LA Vol Index A4C: 22.0ml/m2 LA Vol Index A2C: 24.3 ml/m2 LA Vol Index BP: 26.9 ml/m2 LA Area A4C: 17.7 cm2 LA Area A2C: 16.0 cm2 LA Major Blackburn A4C: 6.3 cm LA Major Blackburn A2C: 4.6 cm LA Volume Index: 23.6 ml/m2 LA Vol A4C: 43.7 ml LA Vol A2C: 45.6 ml LA Vol Index BSA: 23.2 ml/m2 M-MODE MEASUREMENTS: Normal Ranges: AoV Exc: 2.10 cm (1.5-2.5cm) AORTA MEASUREMENTS: Normal Ranges: AoV Exc: 2.10 cm (1.5-2.5cm) LV SYSTOLIC FUNCTION BY 2D PLANIMETRY (MOD): Normal Ranges: EF-A4C View: 72 % (>=55%) EF-A2C View: 76 % EF-Biplane: 72 % EF-Visual: 63 % LV EF Reported: 63 % LV DIASTOLIC FUNCTION: Normal Ranges: MV Peak E: 0.73 m/s (0.7-1.2 m/s) MV Peak A: 0.99 m/s (0.42-0.7 m/s) E/A Ratio: 0.74 (1.0-2.2) MV e' 0.075 m/s (>8.0) MV lateral e' 0.10 m/s MV medial e' 0.05 m/s E/e' Ratio: 9.75 (<8.0) MITRAL VALVE: Normal Ranges: MV DT: 261 msec (150-240msec) MITRAL INSUFFICIENCY: Normal Ranges: MR Vmax: 320.00 cm/s AORTIC VALVE: Normal Ranges: AoV Vmax: 1.62 m/s (<=1.7m/s) AoV Peak P.5 mmHg (<20mmHg) AoV Mean P.0 mmHg (1.7-11.5mmHg) LVOT Max Mena: 1.25 m/s (<=1.1m/s) AoV VTI: 31.50 cm (18-25cm) LVOT VTI: 22.10 cm LVOT Diameter: 2.10 cm (1.8-2.4cm) AoV Area, VTI: 2.43 cm2 (2.5-5.5cm2) AoV Area,Vmax: 2.67 cm2 (2.5-4.5cm2) AoV Dimensionless Index: 0.70 RIGHT VENTRICLE: RV Basal 3.80 cm RV Mid 2.59 cm RV Major 7.2 cm TAPSE: 16.0 mm TRICUSPID VALVE/RVSP: Normal Ranges: Peak TR Velocity: 2.42 m/s RV Syst Pressure: 26.4 mmHg (< 30mmHg) PULMONIC VALVE: Normal Ranges: PV Accel Time: 113 msec (>120ms) PV Max Mena: 1.4 m/s (0.6-0.9m/s) PV Max P.3 mmHg PIEDV: 0.64 m/s PADP: 4.6 mmHg [id number] Jay Alves MD Electronically signed on 07/10/2024 at 9:16:[address] head wo IV contrast Result Date: 07/09/2024 Interpreted By: Peter Lynn, STUDY: CT HEAD WO IV CONTRAST; 07/09/2024 11:39 am INDICATION: Signs/Symptoms:Increased weakness and facial droop on right. COMPARISON: 07/07/2024 reporting no acute findings. ACCESSION NUMBER(S): [id number] ORDERING CLINICIAN: CANDELARIO MONTANA TECHNIQUE: Noncontrast axial CT scan of head was performed. Angled reformats in brain and bone windows were generated. The images were reviewed in bone, brain, blood and soft tissue windows. FINDINGS: No acute edema. No acute hemorrhage. No mass effect. Ventricular system is normal for age. No extra-axial fluid collections. Orbits are normal. Paranasal sinuses are clear. Low-attenuation lesion of the left periventricular white matter measuring 8 mm in size stable since most recent examination favoring lacunar infarct either subacute or chronic given the density value. Consider MRI examination if symptoms persist. Similar findings to most recent examination 07/07/2024. No new findings. Signed by: Peter Lynn 07/09/2024 12:06 PM Dictation workstation: [id number] All data reviewed by me independently Assessment/Plan Assessment & Plan TIA (transient ischemic attack) Elevated troponin Elevated troponin level 68-year-old male with TIA/acute CVA Right-sided weakness and dysarthria with acute CVA Elevated troponin possible nonischemic myocardial injury versus NSTEMI Plan MRI brain with acute/subacute less than infarction left centrum semiovale. Remote lacunar infarction in the adjacent left centrum semiovale. Echocardiogram with LVEF 60%, no wall motion abnormalities. Impaired relaxation pattern of left ventricular diastolic filling. 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 HELPER Suggest outpatient cardiac catheterization when stable Follow neurology recommendations prior discharge planning Will add Plavix from tomorrow S/p heparin drip can be stopped now On stroke pathway Address risk factors Watch pressure closely Keep within fairly reasonable range to maintain optimal perfusion May start antihypertension meds from tomorrow Currently stable hemodynamically SCDs for DVT prophylaxis Continue current medicines Supportive care symptomatic management Education counseling Follow case management for rehab planning Candelario Montana MD Physical Therapy Physical Therapy Treatment Patient Name: Cisco Saini Today's Date: 07/10/2024 Time Calculation Start Time: 953 Stop Time: 1011 Time Calculation (min): 17 min 318/318-A Assessment/Plan PT Assessment PT Assessment Results: Decreased strength, Decreased range of motion, Decreased endurance, Impaired balance, Decreased mobility Rehab Prognosis: Good Evaluation/Treatment Tolerance: (Limited by weakness, endurance) Medical Staff Made Aware: Yes Strengths: Ability to acquire knowledge, Capable of completing ADLs semi/independent, Housing layout, Insight into problems, Premorbid level of function Barriers to Participation: Comorbidities End of Session Communication: Bedside nurse Assessment Comment: Pt requiring mod A x2 for transfers this date for safety. He displays good endurance with activities and denies feelings of fatigue. Pt limited by R UE and RLE weakness. He will continue to benefit from skilled PT to address above deficits and progress towards PLOF. End of Session Patient Position: Up in chair, Alarm on PT Plan Treatment/Interventions: Strengthening, Endurance training, Range of motion, Therapeutic exercise, Therapeutic activity, Home exercise program PT Plan: Ongoing PT PT Frequency: Daily PT Discharge Recommendations: High intensity level of continued care Equipment Recommended upon Discharge: Wheeled walker, Platform attachment, Bedside commode PT Recommended Transfer Status: Assist x1, Assist x2, Total assist Current Problem: Patient Active Problem List Diagnosis TIA (transient ischemic attack) Elevated troponin General Visit Information: PT Visit PT Received On: 07/10/24 General Reason for Referral: Stroke Referred By: Nigel Co-Treatment: OT Co-Treatment Reason: to maximize pt safety Prior to Session Communication: Bedside nurse Patient Position Received: Alarm on, Bed, 3 rail up General Comment: Pt agreeable to PT treatment. Subjective Precautions: Precautions Medical Precautions: Fall precautions Vital Signs: Objective Pain: Pain Assessment Pain Assessment: 0-10 0-10 (Numeric) Pain Score: (C/o R knee and ankle pain with weightbearing activities. Does not rate.) Strength RLE MMT hip flex 3-/5, knee ext 2/5, ankle DF 1/5, ankle PF 1/5 Cognition: Cognition Overall Cognitive Status: Within Functional Limits Orientation Level: Oriented X4 Impulsive: Mildly Postural Control: Postural Control Posture Comment: R lateral lean. Extremity/Trunk Assessments: RLE RLE : (PROM WFL. AROM impaired due to weakness.) LLE LLE : (ROM WFL) Treatments: Bed Mobility Bed Mobility: No (completed with OT prior to PT entry.) Ambulation/Gait Training Ambulation/Gait Training Performed: No (unable) Transfers Transfer: Yes Transfer 1 Technique 1: Sit to stand, Stand to sit Transfer Device 1: Walker, Gait belt (FWW) Transfer Level of Assistance 1: Moderate assistance, +2 Trials/Comments 1: R knee blocked, R UE assisted. Mod A x2. Transfers 2 Transfer From 2: Bed to Transfer to 2: Chair with arms Technique 2: Squat pivot Transfer Device 2: Gait belt Transfer Level of Assistance 2: Moderate assistance, +2 Trials/Comments 2: R knee blocked, R UE assisted. Pt able to reach for armrest of chair with LUE and pivot on LLE. Outcome Measures: [facility] Basic Mobility Turning from your back to your side while in a flat bed without using bedrails: None Moving from lying on your back to sitting on the side of a flat bed without using bedrails: A lot Moving to and from bed to chair (including a wheelchair): A lot Standing up from a chair using your arms (e.g. wheelchair or bedside chair): A lot To walk in hospital room: A lot Climbing 3-5 steps with railing: Total Basic Mobility - Total Score: 13 Education Documentation Mobility Training, taught by Shanice Ibarra PT at 07/10/2024 11:21 AM. Learner: Patient Readiness: Acceptance Method: Explanation Response: Verbalizes Understanding Comment: Discussed rehab POC and current safety recommendations regarding transfers. EDUCATION: Encounter Problems Encounter Problems (Active) Balance STG - Maintains static standing balance with LUE support min A x1 with FWW for safety with ADLs. (Progressing) Start: 07/09/24 Expected End: 07/23/24 Mobility STG - Patient will ambulate 15 ft min A x1 with FWW for reduced risk of falls. (Progressing) Start: 07/09/24 Expected End: 07/23/24 STG - Patient will ascend and descend 2 stairs with LUE support for safe discharge. (Progressing) Start: 07/09/24 Expected End: 07/23/24 PT Transfers STG - Patient will transfer sit to and from stand min A x1 with FWW for increased independence. (Progressing) Start: 07/09/24 Expected End: 07/23/24 Occupational Therapy Evaluation Patient Name: Cisco Saini Today's Date: 07/10/2024 Time Calculation Start Time: 946 Stop Time: 1011 Time Calculation (min): 24 min 318/318-A Assessment IP OT Assessment OT Assessment: pt with significant and sudden decline in ADL and mobility due to acute CVA. pt with severe RUE deficits in strength and coordination with overall nonfunctional limb. pt also suffered severe deficits in RLE and now needs 2 person assist for transfers. pt would benefit from intense therapy service in order to restore independence and function. End of Session Communication: PCT/NA/CTA End of Session Patient Position: Up in chair, Alarm on Plan: Treatment Interventions: ADL retraining, Functional transfer training, UE strengthening/ROM, Endurance training, Patient/family training, Equipment evaluation/education, Neuromuscular reeducation, Fine motor coordination activities, Compensatory technique education OT Frequency: 4 times per week OT Discharge Recommendations: High intensity level of continued care OT Recommended Transfer Status: Assist of 2 Subjective Current Problem: 1. TIA (transient ischemic attack) 2. Elevated troponin level Transthoracic Echo (TTE) Complete Transthoracic Echo (TTE) Complete General: General Reason for Referral: 68 year old male admitted for CVA. CT head is negatvie. MRI:IMPRESSION * Acute/subacute lacunar infarction in the left centrum semiovale measuring a proximally 1 cm x 1 cm x 2 cm in size *Remote lacunar infarction with hemosiderin deposition in the adjacent left centrum semiovale *Volume loss with small-vessel ischemic change Referred By: Nigel Family/Caregiver Present: No Co-Treatment: PT Co-Treatment Reason: to maximize pt safety Prior to Session Communication: Bedside nurse Patient Position Received: Alarm on, Bed, 3 rail up General Comment: pt agreeable to assessment Precautions: Medical Precautions: Fall precautions Pain: c/o right knee and ankle pain when standing Objective Cognition: Overall Cognitive Status: Within Functional Limits Orientation Level: Oriented X4 Safety/Judgement: Exceptions to WFL Routine Tasks: Minimal Impulsive: Mildly Home Living: Home Living Comments: Lives in house alone with 2 JEANCARLOS no rail. 1st floor set up with laundry in basement. No grab bars or shower chair. Prior Function: ADL Assistance: Independent Homemaking Assistance: Independent Ambulatory Assistance: Independent Prior Function Comments: IND with all activities- driving, dressing, cleaning, cooking. No issues with navigation of house or community. No AD. 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 ADL: Eating Assistance: Minimal Grooming Assistance: Moderate Bathing Assistance: Maximal UE Dressing Assistance: Maximal LE Dressing Assistance: Total Toileting Assistance with Device: Total Activity Tolerance: Endurance: Decreased tolerance for upright activites Bed Mobility/Transfers: Bed Mobility Bed Mobility: Yes Bed Mobility 1 Bed Mobility 1: Supine to sitting Level of Assistance 1: Moderate assistance Bed Mobility Comments 1: with HOB up and use of bed rail Transfers Transfer: Yes Transfer 1 Technique 1: Sit to stand, Stand to sit Transfer Device 1: Walker, Gait belt Transfer Level of Assistance 1: Moderate assistance, +2 Trials/Comments 1: pt has difficulty controlling RLE and appropriate/safe placement for standing. PT blocking R knee and assisting with RUE. pt may benefit from platform FWW on next session depending on LE control. Transfers 2 Transfer From 2: Bed to Transfer to 2: Chair with arms Technique 2: Squat pivot Transfer Device 2: Gait belt Transfer Level of Assistance 2: Moderate assistance, +2 Trials/Comments 2: mod A x 2 to pivot to left. Ambulation/Gait Training: Functional Mobility Functional Mobility Performed: No (pt unable) Sitting Balance: Dynamic Sitting Balance Dynamic Sitting-Level of Assistance: Minimum assistance Standing Balance: Static Standing Balance Static Standing-Level of Assistance: Moderate assistance (mod A x 2) Static Standing-Comment/Number of Minutes: blocking of R knee and assist with RUE Vision: Vision - Basic Assessment Current Vision: No visual deficits Strength: Strength Comments: LUE WNL. RUE severe impairments. shoulder flex/extension 2-, elbow flex/ext 0, wrist extension 2-, wrist flexion 0, fingers 0/absent. noted minimal RUE shoulder subluxation Perception: Inattention/Neglect: Appears intact Coordination: Movements are Fluid and Coordinated: No Upper Body Coordination: severe deficits RUE due to bascially flaccid limb. Finger to Nose: Impaired (pt unable RUE) Finger to Target: Impaired (pt unable RUE) Outcome Measures: [facility] Daily Activity Putting on and taking off regular lower body clothing: A lot Bathing (including washing, rinsing, drying): A lot Putting on and taking off regular upper body clothing: A lot Toileting, which includes using toilet, bedpan or urinal: A lot Taking care of personal grooming such as brushing teeth: A lot Eating Meals: A little Daily Activity - Total Score: 13 EDUCATION: Education Documentation Body Mechanics, taught by Sania Hess OT at 07/10/2024 11:11 AM. Learner: Patient Readiness: Acceptance Method: Explanation, Demonstration Response: Demonstrated Understanding, Needs Reinforcement Precautions, taught by Sania Hess OT at 07/10/2024 11:11 AM. Learner: Patient Readiness: Acceptance Method: Explanation, Demonstration Response: Demonstrated Understanding, Needs Reinforcement ADL Training, taught by Sania Hess OT at 07/10/2024 11:11 AM. Learner: Patient Readiness: Acceptance Method: Explanation, Demonstration Response: Demonstrated Understanding, Needs Reinforcement Education Comments No comments found. Goals: Encounter Problems Encounter Problems (Active) ADLs Patient will perform UB bathing with minimal assist level of assistance (Progressing) Start: 07/10/24 Expected End: 07/24/24 Patient with complete upper body dressing with minimal assist level of assistance (Progressing) Start: 07/10/24 Expected End: 07/24/24 BALANCE Patient will maintain static standing balance during ADL task with moderate assist level of assistance in order to demonstrate decreased risk of falling and improved postural control. (Progressing) Start: 07/10/24 Expected End: 07/24/24 EXERCISE/STRENGTHENING pt will be able to return demo self PROM RUE (Progressing) Start: 07/10/24 Expected End: 07/24/24 TRANSFERS Patient will complete functional transfers with minimal assist and moderate assist level of assistance. (Progressing) Start: 07/10/24 Expected End: 07/24/24 07/10/24 1233 Discharge Planning Living Arrangements Alone Support Systems Children;Friends/neighbors Assistance Needed walker Type of Residence Private residence Number of Stairs to Enter Residence 2 Number of Stairs Within Residence 0 Do you have animals or pets at home? No Who is requesting discharge planning? Provider Home or Post Acute Services Post acute facilities (Rehab/SNF/etc) Type of Post Acute Facility Services Rehab Expected Discharge Disposition IRF (Acute Rehab) Does the patient need discharge transport arranged? Yes RoundTrip coordination needed? Yes Patient Choice Provider Choice list and [facility] website (https://medicare.gov/care-compare #search) for post-acute Quality and Resource Measure Data were provided and reviewed with: Patient Patient / Family choosing to utilize agency / facility established prior to hospitalization Yes Care Transitions: Patient reviewed in care round meeting this AM. ADOD 24 hours. PT/OT evals completed with recommendations of acute inpatient rehab. Met with patient in room, sitting up in chair. Role of TCC explained. Discussed discharge plans/needs with therapy recommendations of acute rehab facility. Patient is agreeable to rehab. List printed of available facilities in patient geographical area. Patient would like a referral sent to [facility]. Will send referrals with notes attached via Careport. Care team to follow for bed availability and acceptance. Britt Brooks RN/TCC -[phone] Received a call from Carey cardenas at [facility] [facility] Confirmed they received the referral via [employer], however, they are unable to read the MRI/CT test results. Request test results be faxed. Requested MRI/CT results faxed to [facility] @ [phone]. Referral is under review. Britt Brooks RN/TCC -[phone] Met with patient and friend Pearl (ex-spouse) at bedside per Pearl's request this afternoon. Updated on ADOD and Acute rehab referral status. Patient states [facility] will be his first FOC and [facility] second. Referral status checked in [employer]port, both facilities still pending review. Care team to follow. Britt Brooks RN/TCC Cisco Saini is a 68 y.o. male on day 0 of admission presenting with TIA (transient ischemic attack). Subjective Facial asymmetry Slight right-sided weakness compared to left Objective Physical Exam General Appearance: AAO x 3, Skin: skin color pink, warm, and dry; no suspicious rashes or lesions Eyes : PERRL, EOM's intact ENT: mucous membranes pink and moist Neck: normocephalic Respiratory: lungs clear to auscultation anteriorly; no wheezing, rhonchi, or crackles. Heart: regular rate and rhythm. Abdomen: Nondistended, positive bowel sounds x4, soft, nontender Extremities: no edema Peripheral pulses: normal x4 extremities Neuro: Awake, slight weakness on right side Last Recorded Vitals Blood pressure 150/78, pulse 69, temperature 36.2 C (97.2 F), resp. rate 20, height 1.651 m (5' 5), weight 85.6 kg (188 lb 11.4 oz), SpO2 96%. Intake/Output last 3 Shifts: I/O last 3 completed shifts: In: 1394.8 (16.3 mL/kg) [P.O.:1080; I.V.:314.8 (3.7 mL/kg)] Out: - (0 mL/kg) Weight: 85.6 kg Relevant Results Scheduled medications aspirin, 81 mg, oral, Daily atorvastatin, 40 mg, oral, Nightly perflutren lipid microspheres, 0.5-10 mL of dilution, intravenous, Once in imaging perflutren protein A microsphere, 0.5 mL, intravenous, Once in imaging polyethylene glycol, 17 g, oral, Daily sulfur hexafluoride microsphr, 2 mL, intravenous, Once in imaging Continuous medications heparin, 0-4,000 Units/hr, Last Rate: 800 Units/hr (07/09/24 0545) PRN medications PRN medications: acetaminophen OR acetaminophen OR acetaminophen, acetaminophen OR acetaminophen OR acetaminophen, heparin, hydrALAZINE FOLLOWED BY [START ON 07/11/2024] hydrALAZINE, labetaloL, oxygen Results for orders placed or performed during the hospital encounter of 07/07/24 (from the past 24 hour(s)) Heparin Assay, UFH Result Value Ref Range Heparin Unfractionated 0.3 See Comment Below for Therapeutic Ranges IU/mL CBC Result Value Ref Range WBC 6.1 4.4 - 11.3 x10*3/uL nRBC 0.0 0.0 - 0.0 /100 WBCs RBC 4.70 4.50 - 5.90 x10*6/uL Hemoglobin 14.8 13.5 - 17.5 g/dL Hematocrit 44.6 41.0 - 52.0 % MCV 95 80 - 100 fL MCH 31.5 26.0 - 34.0 pg MCHC 33.2 32.0 - 36.0 g/dL RDW 13.2 11.5 - 14.5 % Platelets 225 150 - 450 x10*3/uL Basic metabolic panel Result Value Ref Range Glucose 114 (H) 74 - 99 mg/dL Sodium 138 136 - 145 mmol/L Potassium 3.8 3.5 - 5.3 mmol/L Chloride 107 98 - 107 mmol/L Bicarbonate 23 21 - 32 mmol/L Anion Gap 12 10 - 20 mmol/L Urea Nitrogen 12 6 - 23 mg/dL Creatinine 1.11 0.50 - 1.30 mg/dL eGFR 72 >60 mL/min/1.73m*2 Calcium 8.6 8.6 - 10.3 mg/dL Heparin Assay, UFH Result Value Ref Range Heparin Unfractionated 0.3 See Comment Below for Therapeutic Ranges IU/mL POCT GLUCOSE Result Value Ref Range POCT Glucose 133 (H) 74 - 99 mg/dL POCT GLUCOSE Result Value Ref Range POCT Glucose 108 (H) 74 - 99 mg/dL POCT GLUCOSE Result Value Ref Range POCT Glucose 131 (H) 74 - 99 mg/dL CT head wo IV contrast Result Date: 07/09/2024 Interpreted By: Peter Lynn, STUDY: CT HEAD WO IV CONTRAST; 07/09/2024 11:39 am INDICATION: Signs/Symptoms:Increased weakness and facial droop on right. COMPARISON: 07/07/2024 reporting no acute findings. ACCESSION NUMBER(S): [id number] ORDERING CLINICIAN: CANDELARIO MONTANA TECHNIQUE: Noncontrast axial CT scan of head was performed. Angled reformats in brain and bone windows were generated. The images were reviewed in bone, brain, blood and soft tissue windows. FINDINGS: No acute edema. No acute hemorrhage. No mass effect. Ventricular system is normal for age. No extra-axial fluid collections. Orbits are normal. Paranasal sinuses are clear. Low-attenuation lesion of the left periventricular white matter measuring 8 mm in size stable since most recent examination favoring lacunar infarct either subacute or chronic given the density value. Consider MRI examination if symptoms persist. Similar findings to most recent examination 07/07/2024. No new findings. Signed by: Peter Lynn 07/09/2024 12:06 PM Dictation workstation: [id number] CT angio head and neck w and wo IV contrast Result Date: 07/08/2024 Interpreted By: Romaine Evans, STUDY: CT ANGIO HEAD AND NECK W AND WO IV CONTRAST; 07/08/2024 12:30 am INDICATION: Signs/Symptoms:CVA. COMPARISON: Correlation made to noncontrast head CT of 07/07/2024. ACCESSION NUMBER(S): [id number] ORDERING CLINICIAN: VIRGINIA HERNANDEZ TECHNIQUE: Unenhanced CT images of the head were obtained. Subsequently, N/A of N/A was administered intravenously and axial images of the head and neck were acquired. Coronal, sagittal, and 3-D reconstructions were provided for review. FINDINGS: CTA HEAD FINDINGS: Anterior circulation: [id number] atherosclerotic calcification in the carotid siphons without hemodynamically significant luminal narrowing. The bilateral intracranial internal carotid arteries, bilateral carotid terminals, bilateral proximal anterior and middle cerebral arteries are normal. Posterior circulation: Mild atherosclerotic calcification in the V4 segment of the left vertebral artery without significant luminal narrowing. Minor diffuse smooth narrowing of the V4 segment of the right vertebral artery distal to the PICA origin, probably representing developmental variability with or without some degree of atherosclerotic narrowing. Bilateral intracranial vertebral arteries, vertebrobasilar junction, basilar artery and proximal posterior cerebral arteries are otherwise normal. No intracranial saccular aneurysm or other abnormal intracranial enhancement. CTA NECK FINDINGS: Right carotid vessels: The common carotid artery is normal. Moderate partially calcified atherosclerotic plaque about the carotid bifurcation and in the proximal ICA without hemodynamically significant luminal narrowing. The internal carotid artery in the neck is otherwise normal. 0% ICA narrowing by NASCET criteria. Left carotid vessels: The common carotid artery is normal. Moderate partially calcified atherosclerotic plaque about the carotid bifurcation and in the proximal ICA without hemodynamically significant luminal narrowing. The internal carotid artery in the neck is otherwise normal. 0% ICA narrowing by NASCET criteria. Vertebral vessels: Mild athero sclerotic narrowing of the origins of the vertebral arteries, questionable hemodynamic significance. The visualized segments of the cervical vertebral arteries are otherwise normal in caliber. Left vertebral artery is dominant. Coronary artery calcifications noted. No evidence for significant stenosis of the cervical vessels. No evidence for significant stenosis or large branch vessel cutoffs of the intracranial vessels. MACRO: None Signed by: Romaine Evans 07/08/2024 1:24 AM Dictation workstation: [id number] CT brain attack head wo IV contrast Result Date: 07/07/2024 Interpreted By: Romaine Evans, STUDY: CT BRAIN ATTACK HEAD WO IV CONTRAST; 07/07/2024 10:33 pm INDICATION: Signs/Symptoms:Stroke Evaluation. COMPARISON: None. ACCESSION NUMBER(S): [id number] ORDERING CLINICIAN: VIRGINIA HERNANDEZ TECHNIQUE: Noncontrast axial CT scan of head was performed. Angled reformats in brain and bone windows were generated. The images were reviewed in bone, brain, blood and soft tissue windows. FINDINGS: CSF Spaces: Minor ex vacuo dilation of the frontal horn of the left lateral ventricle the ventricles, sulci and basal cisterns are otherwise within normal limits. There is no extraaxial fluid collection. Parenchyma: Moderate to advanced volume loss. There is periventricular and subcortical white matter hypoattenuation, most in keeping with chronic microvascular ischemic change. 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 The ledesma-white differentiation is intact. There is no mass effect or midline shift. There is no intracranial hemorrhage. Calvarium: The calvarium is unremarkable. Paranasal sinuses and mastoids: Visualized paranasal sinuses and mastoids are clear. No evidence of acute cortical infarct or intracranial hemorrhage. Brain parenchymal volume loss and chronic ischemic changes. MACRO: Romaine Evans discussed the significance and urgency of this critical finding by [employer] secure chat with VIRGINIA DAVID on 07/07/2024 at 10:48 pm. (-RCF-) Findings: See findings. 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 Hemoglobin A1c, lipid panel Address risk factors Neurocheck Permissive hypertension DVT prophylaxis per policy Continue current medicines Supportive care symptomatic management Education counseling Labetalol or hydralazine IV for systolic blood pressure greater than 220 Candelario Montana MD Physical Therapy Physical Therapy Evaluation Patient Name: Cisco Saini Today's Date: 07/09/2024 Time Calculation Start Time: 1030 Stop Time: 1047 Time Calculation (min): 17 min Assessment/Plan PT Assessment PT Assessment Results: Decreased strength, Decreased range of motion, Decreased endurance, Impaired balance, Decreased mobility Rehab Prognosis: Good Evaluation/Treatment Tolerance: (Limited by weakness, endurance) Medical Staff Made Aware: Yes Strengths: Ability to acquire knowledge, Capable of completing ADLs semi/independent, Housing layout, Insight into problems, Premorbid level of function Barriers to Participation: Comorbidities End of Session Communication: Bedside nurse Assessment Comment: Pt will benefit from skilled PT services to address the above stated impairments for return to PLOF safely. At this time pt is functioning significantly below baseline with transfers, walking, standing. He is unsafe to perform any standing mobility at this time s/p CVA. End of Session Patient Position: Up in chair, Alarm off, caregiver present IP OR SWING BED PT PLAN Inpatient or Swing Bed: Inpatient PT Plan Treatment/Interventions: Strengthening, Endurance training, Range of motion, Therapeutic exercise, Therapeutic activity, Home exercise program PT Plan: Ongoing PT PT Frequency: Daily PT Discharge Recommendations: Moderate intensity level of continued care, High intensity level of continued care Equipment Recommended upon Discharge: Wheeled walker, Platform attachment, Bedside commode PT Recommended Transfer Status: Assist x1, Assist x2, Total assist Subjective General Visit Information: General Reason for Referral: Nigel Referred By: ISAIAH Family/Caregiver Present: No General Comment: Pt agreeable to PT. States he thinks s/s are worsening specifically dropping of R side of face, speech, and RUE strength since he was admitted. (After subjective and objective measures taken nursing staff noticed noticable worsening of facial drooping and dysarthria therefore called Dr. Montana to assess- Dr. Montana reports this is not a current CVA therefore code does not need to be called now.) Home Living: Home Living Home Living Comments: Lives in house alone with 2 JE[address] no rail. 1st floor set up with laundry in basement. No grab bars or shower chair. Prior Level of Function: Prior Function Per Pt/Caregiver Report Prior Function Comments: IND with all activities- driving, dressing, cleaning, cooking. No issues with navigation of house or community. No AD. 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 Precautions: Precautions Medical Precautions: Fall precautions Objective Pain: Pain Assessment Pain Assessment: 0-10 0-10 (Numeric) Pain Score: 0 - No pain Cognition: Cognition Orientation Level: Oriented X4 General Assessments: General Observation General Observation: R fascial droop, dysarthria Activity Tolerance Endurance: Tolerates less than 10 min exercise with changes in vital signs Strength Strength Comments: 03/26 B hip, knee, ankle LLE. 3-/ R ankle Df and hip flex. 02/24 R hip abd and knee flex. 03/26 R Knee ext. Static Standing Balance Static Standing-Balance Support: Left upper extremity supported (R unable to grasp FWW) Static Standing-Level of Assistance: Maximum assistance Static Standing-Comment/Number of Minutes: R lateral lean Functional Assessments: Transfers Transfer: (Sit <> stand max A x1 with LUE on FWW (RUE unable to assist). Gait belt) Ambulation/Gait Training Ambulation/Gait Training Performed: (Unsafe to perform d/t max A required to stand with FWW) Outcome Measures: [facility] Basic Mobility Turning from your back to your side while in a flat bed without using bedrails: A little Moving from lying on your back to sitting on the side of a flat bed without using bedrails: A little Moving to and from bed to chair (including a wheelchair): A lot Standing up from a chair using your arms (e.g. wheelchair or bedside chair): A lot To walk in hospital room: Total Climbing 3-5 steps with railing: Total Basic Mobility - Total Score: 12 Encounter Problems Encounter Problems (Active) Balance STG - Maintains static standing balance with LUE support min A x1 with FWW for safety with ADLs. Start: 07/09/24 Expected End: 07/23/24 Mobility STG - Patient will ambulate 15 ft min A x1 with FWW for reduced risk of falls. Start: 07/09/24 Expected End: 07/23/24 STG - Patient will ascend and descend 2 stairs with LUE support for safe discharge. Start: 07/09/24 Expected End: 07/23/24 PT Transfers STG - Patient will transfer sit to and from stand min A x1 with FWW for increased independence. Start: 07/09/24 Expected End: 07/23/24 Education Documentation Mobility Training, taught by Maranda Mckinnon PT at 07/09/2024 11:01 AM. Learner: Patient Readiness: Acceptance Method: Explanation Response: Verbalizes Understanding Comment: PT will come for exercise everyday to address LE s/s. OT will come to address UE s/s. Normal to have R lateral lean s/p CVA with R sided weakness. Education Comments No comments found. 07/08/24 1516 Discharge Planning Living Arrangements Alone Support Systems Children Assistance Needed none Type of Residence Private residence Number of Stairs to Enter Residence 2 Number of Stairs Within Residence 0 Do you have animals or pets at home? No Who is requesting discharge planning? Provider Home or Post Acute Services In home services Type of Post Acute Facility Services Rehab Type of Home Care Services Home PT SW reviewed chart and then met with patient and his friend Pearl. Confirmed address and insurance. 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 We did discuss possible plans for discharge -which could be SNF for rehab or home with HHC -depending on how he progresses. Patient is concerned about work and we discussed FMLA that he said that can apply for. Plan is to be determined- home with HH or rehab stay at SNF. CT to follow. documented in this encounter [facility] Work Phone: 07-13-2024 Nurse Note Report given to Joy SAAB at [facility]- Inpatient rehab, per request IV's will be left in place. [facility] 07-13-2024 Nurse Note Report given to Joy SAAB at [facility]- Inpatient rehab, per request IV's will be left in place. Patient is a non smoker. Pt quit smoking and smokeless tobacco in the year 1999. 7:58 AM Mandy Sanchez [employer] 07/10/2024 @ 0911 Pt Awake and Alert, Oriented x4 Resting in bed Speech with mild dysarthria Rt Facial Droop noted Tongue deviates to the Rt Pt denies difficulty swallowing liquids @ this time. MARGAUX Rt side with significant weakness noted, minimal effort against gravity Unable to open Rt hand on own Rt hand grasp much weaker than left Radial pulses palpable/strong Moving Lt extremities without difficulty No sensation deficits noted @ this time. +Ataxia in RUE & RLE Denies visual changes or headache @ this time Follows commands and answers all questions appropriately NIHSS= 9 @ this time Personal Stroke/TIA risk factors reviewed with patient Pt quit smoking in 1998 Denies health history or medications Pt states he has not been to the Dr in 10-years, Dr. 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 Was in the [employer] for 3-years Denies recent falls or use of a walker or cane Reviewed and provided personalized Stroke/TIA education with patient ~ Has had episodes of hypertension while in the hospital, provided Hypertension and Stroke, Life Style changes to prevent Stroke, Stroke Ivan for phone to track daily personal health, Antiplatelets education All handouts reviewed and provided to patient Life After Stroke book, BE FAST booklet w/ magnet reviewed and provided BE FAST magnet and stress ball provided Reviewed How to recognize signs/symptoms of Stroke and the importance of calling 911 with the onset of symptoms. Pt stated his Last Known Well was approx 1/2hr prior to his shift ending @ 2pm, he stated he felt weakness all over. He finished his shift @ work, went home and rested. Upon running errands later afternoon, he had significant weakness in his Right Leg while walking really off balance Explained the concept of Time is Brain and the urgency of calling 911 with symptoms Pt had MRI & ECHO completed this morning and is awaiting the results to determine the next steps in his care. Education documented in EMR, Stroke Program info provided to patient Spoke with Primary Nurse KAISER Olivarez regarding documentation and care of patient. Stroke Core Measures are being met, documentation of Q 4hr Neuro Checks and VS are done well . Reviewed the patient's NIHSS assessment and scoring HALEY Gresham RN Stroke Center Coordinator, [facility] 07/11/2024 @ 1010 Pt in Cardiac Poker Machine Attendant recovery Awake, alert, and oriented x4 Answers all questions appropriately Follows commands Speech remains with mild dysarthria Rt facial droop present, tongue deviates to the Rt No drooling noted @ present Patient states Rt side of lips numb, denies facial numbness Able to move RLE slightly, although unable to raise off bed Complains of Rt Knee pain with movement Unable to evaluate RUE due to TR band compression site Rt fingers pink, warm Rt radial pulse +/Strong Able to move Lt side extremities without difficulty Denies sensation deficits to extremities Denies headache or blurry vision @ this time VS Stable Will check on patient post-procedure recovery upon return to [facility] Updates provided to patient's Primary Nurse Trisha SAAB, [facility] HALEY Gresham RN Stroke Center Coordinator, [facility] Patient is a non smoker. He previously smoked but quit in 1998 documented in this encounter [facility] Work Phone: 07-13-2024 Hospital course Narrative Discharge Diagnosis TIA (transient ischemic attack) Issues Requiring Follow-Up Cardiac surgery Discharge Meds Your medication list START taking these medications Instructions Last Dose Given Next Dose Due aspirin 81 mg chewable tablet Start taking on: July 14, 2024 Chew 1 tablet (81 mg) once daily. atorvastatin 40 mg tablet Commonly known as: Lipitor Take 1 tablet (40 mg) by mouth once daily at bedtime. clopidogrel 75 mg tablet Commonly known as: Plavix Start taking on: July 14, 2024 Take 1 tablet (75 mg) by mouth once daily. lisinopril 10 mg tablet Start taking on: July 14, 2024 Take 1 tablet (10 mg) by mouth once daily. metoprolol succinate XL 25 mg 24 hr tablet Commonly known as: Toprol-XL Start taking on: July 14, 2024 Take 1 tablet (25 mg) by mouth once daily. Do not crush or chew. oxymetazoline 0.05 % nasal spray Commonly known as: Afrin Administer 2 sprays into each nostril every 12 hours if needed for congestion for up to 3 days. Do not use for more than 3 days. polyethylene glycol 17 gram packet Commonly known as: Glycolax, Miralax Start taking on: July 14, 2024 Take 17 g by mouth once daily. Where to Get Your Medications These medications were sent to [facility] #[id number] - [address] [id number] aspirin 81 mg chewable tablet atorvastatin 40 mg tablet clopidogrel 75 mg tablet lisinopril 10 mg tablet metoprolol succinate XL 25 mg 24 hr tablet oxymetazoline 0.05 % nasal spray polyethylene glycol 17 gram packet Test Results Pending At Discharge Pending Labs No current pending labs. Hospital Course 68-year-old male with Acute CVA Hypertension hyperlipidemia Coronary artery disease, prediabetes Right-sided weakness and dysarthria Elevated troponins status post heparin drip for possible NSTEMI Patient had cardiopulmonary monitoring Followed vitals and clinical progress MRI brain with acute/subacute infarct in left centrum semimobile Echocardiogram with LVEF 50%, no wall motion abnormalities Impaired relaxation pattern of left ventricular diastolic filling. 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 SCDs for DVT prophylaxis over offered here and as per policy Currently medically stable for DC to rehab SNF Pertinent Physical Exam At Time of Discharge Physical Exam General Appearance: AAO x 3, Skin: skin color pink, warm, and dry; no suspicious rashes or lesions Eyes : PERRL, EOM's intact ENT: mucous membranes pink and moist Neck: normocephalic Respiratory: lungs clear to auscultation anteriorly; no wheezing, rhonchi, or crackles. Heart: regular rate and rhythm. Abdomen: Nondistended, positive bowel sounds x4, soft, nontender Extremities: no edema Peripheral pulses: normal x4 extremities Neuro: Awake, weakness on right side, facial asymmetry with slight right facial droop. Outpatient Follow-Up Future Appointments Date Time Provider Department Center 08/16/2024 1:30 PM Elisabeth Atkins MD [id number] Academic Time to dc > 35 mins Candelario Montana MD documented in this encounter [facility] Work Phone: 07-13-2024 Nurse Note Patient is a non smoker. Pt quit smoking and smokeless tobacco in the year 1999. 7:58 AM Mandy Sanchez RRT [facility] 07-12-2024 Plan of care note The patient's goals for the shift include transfer to rehab unit The clinical goals for the shift include able to participate in physical therapy, move to chair. Over the shift, the patient did not make progress toward the following goals. Barriers to progression include weakness right lower extremity.. Recommendations to address these barriers include physical therapy to strengthen right lower extremity and assess proper equipment needed. [facility] 07-12-2024 Miscellaneous Notes The patient's goals for the shift include transfer to rehab unit The clinical goals for the shift include able to participate in physical therapy, move to chair. Over the shift, the patient did not make progress toward the following goals. Barriers to progression include weakness right lower extremity.. Recommendations to address these barriers include physical therapy to strengthen right lower extremity and assess proper equipment needed. Physician Transition of Care Summary Invasive Cardiovascular Lab Procedure Date: 07/11/2024 Attending: * Emanuel Kwong - Primary Resident/Fellow/Other Transmission Rebuilder: Surgeons and Role: * No surgeons found with a matching role * Indications: Pre-op Diagnosis * Elevated troponin level [R79.89] Post-procedure diagnosis: Post-op Diagnosis * Elevated troponin level [R79.89] Procedure(s): * Left Heart Cath, With LV Procedure Findings: Multivessel coronary artery disease Prox LAD 70% calcified lesion; 1st Dg 90% calcified lesion (small vessel) 3rd OM 95% calcified lesion Distal RCA diffuse 80% calcified lesion Preserved LV systolic function Description of the Procedure: Procedure: Left Heart Catheterization R radial artery access with 6F sheath. LV and Ao hemodynamic measurements. S/P Left Heart Catheterization that showed multivessel obstructive coronary artery disease. Prox LAD 70% calcified lesion; 1st Dg 90% calcified lesion (small vessel) 3rd OM 95% calcified lesion Distal RCA diffuse 80% calcified lesion Preserved LV systolic function Patient remained stable during the entire procedure. No complications. Hemostasis with TR Band. Plan: Bed rest for 3 hours. Constant check for bleeding. Maintain compression band (CB) for 60 minutes past procedure. Remove 3mL of air from CB every 15 minutes until fully deflated. If recurrent bleeding occurs, re-inflate with enough air to fully restore hemostasis (2 to 3 mL, maximum of 18 mL). Maintain CB at this same level for 30 minutes before attempting to re-deflate. Once fully deflated, carefully remove CB and place a sterile dressing over access site. Observe for 15 minutes and check for pulse and for signs of bleeding. Instruct patient not to use or bend their wrist for four hours. Cardiology follow up. Would suggest Heart Surgery team consultation for CABG. Complications: No Stents/Implants: Implants No implant documentation for this case. Anticoagulation/Antiplatelet Plan: ASA Estimated Blood Loss: 5 mL Anesthesia: Moderate Sedation Anesthesia Staff: No anesthesia staff entered. Any Specimen(s) Removed: No specimens collected during this procedure. Disposition: Floor Electronically signed by: Emanuel Kwong MD, 07/11/2024 9:54 AM Sedation Plan ASA 3 Mallampati class: II. Risks, benefits, and alternatives discussed with patient. Problem: Safety - Adult Goal: Free from fall injury Outcome: Progressing Problem: Chronic Conditions and Co-morbidities Goal: Patient's chronic conditions and co-morbidity symptoms are monitored and maintained or improved Outcome: Progressing Problem: Fall/Injury Goal: Not fall by end of shift Outcome: Progressing Goal: Be free from injury by end of the shift Outcome: Progressing Goal: Verbalize understanding of personal risk factors for fall in the hospital Outcome: Progressing Goal: Verbalize understanding of risk factor reduction measures to prevent injury from fall in the home Outcome: Progressing Goal: Use assistive devices by end of the shift Outcome: Progressing Goal: Pace activities to prevent fatigue by end of the shift Outcome: Progressing Problem: General Stroke Goal: Establish a mutual oil heaterman goal with patient by discharge Outcome: Progressing Goal: Demonstrate improvement in neurological exam throughout the shift Outcome: Progressing Goal: Maintain BP within ordered limits throughout shift Outcome: Progressing Goal: Participate in treatment (ie., meds, therapy) throughout shift Outcome: Progressing Goal: No symptoms of aspiration throughout shift Outcome: Progressing Goal: No symptoms of hemorrhage throughout shift Outcome: Progressing Goal: Tolerate enteral feeding throughout shift Outcome: Progressing Goal: Decreased nausea/vomiting throughout shift Outcome: Progressing Goal: Controlled blood glucose throughout shift Outcome: Progressing Goal: Out of bed three times today Outcome: Progressing Problem: Skin Goal: Decreased wound size/increased tissue granulation at next dressing change Outcome: Progressing Goal: Participates in plan/prevention/treatment measures Outcome: Progressing Goal: Prevent/manage excess moisture Outcome: Progressing Goal: Prevent/minimize sheer/friction injuries Outcome: Progressing Goal: Promote/optimize nutrition Outcome: Progressing Goal: Promote skin healing Outcome: Progressing The patient's goals for the shift include The clinical goals for the shift include Patient will have stable NIH scale this shift. The patient's goals for the shift include The clinical goals for the shift include remain safe, increase right side function. No change in function. Pt remains is good spoirits Patient was seen admitted overnight. Reviewed chart and agree with assessment plan The clinical goals for the shift include Pt will have NIH score less than 2 by shift change and no signs of bleeding throughout the shift NIH score has maintained a score of 3 during inpatient stay. No signs of bleeding observed or reported by Pt. No reports of pain. Pt resting comfortably in bed. documented in this encounter [facility] Work Phone: 07-11-2024 Hospital Discharge instructions Arnoldo Marinelli APRN-VOCATIONAL REHABILITATION ADMINISTRATOR - 07/11/2024 9:59 AM EDT Images from the original note were not included. CARDIAC CATHETERIZATION DISCHARGE INSTRUCTIONS FOR SUDDEN AND SEVERE CHEST PAIN, SHORTNESS OF BREATH, EXCESSIVE BLEEDING, SIGNS OF STROKE, OR CHANGES IN MENTAL STATUS YOU SHOULD CALL 911 IMMEDIATELY. If your provider has prescribed aspirin and/or clopidogrel (Plavix), or prasugrel (Effient), or ticagrelor (Brilinta), DO NOT STOP THESE MEDICATIONS for any reason without talking to your clinical trials manager first. If any of these were prescribed, you must take them every day without missing a single dose. If you are getting low on these medications, contact your provider immediately for a refill. FOR NEXT 24 HOURS - Upon discharge, you should return home and rest for the remainder of the day and evening. You do not have to stay on bed rest but should not be very active. It is recommended a responsible adult be with you for the first 24 hours after the procedure. - No driving for 24 hours after procedure. Please arrange for someone to drive you home from the hospital today. - Do not drive, operate machinery, or use power tools for 24 hours after your procedure. - Do not make any legal decisions for 24 hours after your procedure. - Do not drink alcoholic beverages for 24 hours after your procedure. WOUND CARE *FOR FEMORAL (LEG) ACCESS* Avoid heavy lifting (over 10 pounds) for 7 days, squatting or excessive bending for 2 days, and strenuous exercise for 7 days. No submerged bathing, swimming, or hot tubs for the next 7 days, or until fully healed. Avoid sexual activity for 3-4 days until any groin discomfort has ceased. *FOR RADIAL (WRIST) ACCESS* No lifting more than 5 pounds or excessive use of the wrist for 24 hours - for example, treat your wrist as if it is sprained. Do not engage in vigorous activities (tennis, golf, bowling, weights) for at least 48 hours after the procedure. Do not submerge the wrist for 7 days after the procedure. You should expect mild tingling in your hand and tenderness at the puncture site for up to 3 days. - The transparent dressing should be removed from the site 24 hours after the procedure. Wash the site gently with soap and water. Rinse well and pat dry. Keep the area clean and dry. You may apply a Band-Aid to the site. Avoid lotions, ointments, or powders until fully healed. - You may shower the day after your procedure. - It is normal to notice a small bruise around the puncture site and/or a small grape sized or smaller lump. Any large bruising or large lump warrants a call to the office. - If bleeding should occur, lay down and apply pressure to the affected area for 10 minutes. If the bleeding stops notify your physician. If there is a large amount of bleeding or spurting of blood CALL [address] yourself to the hospital. - You may experience some tenderness, bruising or minimal inflammation. If you have any concerns, you may contact the Poker Machine Attendant or if any of these symptoms become excessive, contact your clinical trials manager or go to the emergency room. OTHER INSTRUCTIONS - You may take acetaminophen (Tylenol) as directed for discomfort. If pain is not relieved with acetaminophen (Tylenol), contact your doctor. - If you notice or experience any of the following, you should notify your doctor or seek medical attention Chest pain or discomfort Change in mental status or weakness in extremities. Dizziness, light headedness, or feeling faint. Change in the site where the procedure was performed, such as bleeding or an increased area of bruising or swelling. Tingling, numbness, pain, or coolness in the leg/arm beyond the site where the procedure was performed. Signs of infection (i.e. shaking chills, temperature > 100 degrees Fahrenheit, warmth, redness) in the leg/arm area where the procedure was performed. Changes in urination Bloody or black stools Vomiting blood Severe nose bleeds Any excessive bleeding - If you DO NOT have an appointment with your clinical trials manager within 2-4 weeks following your procedure, please contact their office. The following attachments cannot be sent through Care Everywhere.STROKE OVERVIEW HANDOUTdocumented in this encounter [facility] Work Phone: 07-11-2024 Note Formatting of this n ote is different from the original. Physician Transition of Care Summary Invasive Cardiovascular Lab Procedure Date: 07/11/2024 Attending: * Emanuel Kwong - Primary Resident/Fellow/Other Transmission Rebuilder: Surgeons and Role: * No surgeons found with a matching role * Indications: Pre-op Diagnosis * Elevated troponin level [R79.89] Post-procedure diagnosis: Post-op Diagnosis * Elevated troponin level [R79.89] Procedure(s): * Left Heart Cath, With LV Procedure Findings: Multivessel coronary artery disease Prox LAD 70% calcified lesion; 1st Dg 90% calcified lesion (small vessel) 3rd OM 95% calcified lesion Distal RCA diffuse 80% calcified lesion Preserved LV systolic function Description of the Procedure: Procedure: Left Heart Catheterization R radial artery access with 6F sheath. LV and Ao hemodynamic measurements. S/P Left Heart Catheterization that showed multivessel obstructive coronary artery disease. Prox LAD 70% calcified lesion; 1st Dg 90% calcified lesion (small vessel) 3rd OM 95% calcified lesion Distal RCA diffuse 80% calcified lesion Preserved LV systolic function Patient remained stable during the entire procedure. No complications. Hemostasis with TR Band. Plan: Bed rest for 3 hours. Constant check for bleeding. Maintain compression band (CB) for 60 minutes past procedure. Remove 3mL of air from CB every 15 minutes until fully deflated. If recurrent bleeding occurs, re-inflate with enough air to fully restore hemostasis (2 to 3 mL, maximum of 18 mL). Maintain CB at this same level for 30 minutes before attempting to re-deflate. Once fully deflated, carefully remove CB and place a sterile dressing over access site. Observe for 15 minutes and check for pulse and for signs of bleeding. Instruct patient not to use or bend their wrist for four hours. Cardiology follow up. Would suggest Heart Surgery team consultation for CABG. Complications: No Stents/Implants: Implants No implant documentation for this case. Anticoagulation/Antiplatelet Plan: ASA Estimated Blood Loss: 5 mL Anesthesia: Moderate Sedation Anesthesia Staff: No anesthesia staff entered. Any Specimen(s) Removed: No specimens collected during this procedure. Disposition: Floor Electronically signed by: Emanuel Kwong MD, 07/11/2024 9:54 AM [facility] Work Phone: 07-11-2024 Note Formatting of this n ote is different from the original. Physician Transition of Care Summary Invasive Cardiovascular Lab Procedure Date: 07/11/2024 Attending: * Emanuel Kwong - Primary Resident/Fellow/Other Transmission Rebuilder: Surgeons and Role: * No surgeons found with a matching role * Indications: Pre-op Diagnosis * Elevated troponin level [R79.89] Post-procedure diagnosis: Post-op Diagnosis * Elevated troponin level [R79.89] Procedure(s): * Left Heart Cath, With LV Procedure Findings: Multivessel coronary artery disease Prox LAD 70% calcified lesion; 1st Dg 90% calcified lesion (small vessel) 3rd OM 95% calcified lesion Distal RCA diffuse 80% calcified lesion Preserved LV systolic function Description of the Procedure: Procedure: Left Heart Catheterization R radial artery access with 6F sheath. LV and Ao hemodynamic measurements. S/P Left Heart Catheterization that showed multivessel obstructive coronary artery disease. Prox LAD 70% calcified lesion; 1st Dg 90% calcified lesion (small vessel) 3rd OM 95% calcified lesion Distal RCA diffuse 80% calcified lesion Preserved LV systolic function Patient remained stable during the entire procedure. No complications. Hemostasis with TR Band. Plan: Bed rest for 3 hours. Constant check for bleeding. Maintain compression band (CB) for 60 minutes past procedure. Remove 3mL of air from CB every 15 minutes until fully deflated. If recurrent bleeding occurs, re-inflate with enough air to fully restore hemostasis (2 to 3 mL, maximum of 18 mL). Maintain CB at this same level for 30 minutes before attempting to re-deflate. Once fully deflated, carefully remove CB and place a sterile dressing over access site. Observe for 15 minutes and check for pulse and for signs of bleeding. Instruct patient not to use or bend their wrist for four hours. Cardiology follow up. Would suggest Heart Surgery team consultation for CABG. Complications: No Stents/Implants: Implants No implant documentation for this case. Anticoagulation/Antiplatelet Plan: ASA Estimated Blood Loss: 5 mL Anesthesia: Moderate Sedation Anesthesia Staff: No anesthesia staff entered. Any Specimen(s) Removed: No specimens collected during this procedure. Disposition: Floor Electronically signed by: Emanuel Kwong MD, 07/11/2024 9:54 AM T [facility] Work Phone: 07-11-2024 Note Formatting of this n ote might be different from the original. Sedation Plan ASA 3 Mallampati class: II. Risks, benefits, and alternatives discussed with patient. [facility] Work Phone: 07-11-2024 Note Formatting of this n ote might be different from the original. Sedation Plan ASA 3 Mallampati class: II. Risks, benefits, and alternatives discussed with patient. [facility] Work Phone: 07-11-2024 Attending History and physical note H&P reviewed. The patient was examined and there are no changes to the H&P. Source Note - Emanuel Kwong MD - 07/10/2024 5:59 PM EDT Inpatient consult to Cardiology Consult performed by: Emanuel Kwong MD Consult ordered by: Candelario Montana MD Reason for consult: troponin leak History Of Present Illness: Mr. Cisco Saini is a 68 y.o. former smoker male being consulted by the Cardiology team for troponin leak. Patient with prior medical history significant for obesity. He presented to ED [facility] on 07/07/2024 complaining of right-sided weakness. He endorses that he lost strength in the right side of his body. Before this he was feeling pretty normal. His symptoms improved in the hospital. He denied chest pain, shortness of breath, palpitations, leg edema, lightheadedness, headaches, fever, chills, orthopnea, paroxysmal nocturnal dyspnea or syncope. He lives at home independently. EKG shows normal sinus rhythm with no signs of acute ischemic changes. Trop [id number]. He was admitted for clinical compensation. Last Recorded Vitals: Vitals: 07/10/24 0800 07/10/24 1200 07/10/24 1225 07/10/24 1600 BP: 146/90 130/85 137/78 BP Location: Left arm Left arm Patient Position: Lying Lying Pulse: 79 81 80 Resp: 18 18 16 Temp: 36.6 C (97.9 F) 36.5 C (97.7 F) 36.7 C (98.1 F) TempSrc: Temporal Temporal Temporal SpO2: 93% 93% 92% 95% Weight: Height: Last Labs: CBC - 07/10/2024: 4:23 AM 8.0 15.1 226 45.4 CMP - 07/10/2024: 4:23 AM 8.6 7.0 26 --- 0.5 _ 4.3 27 85 PTT - 07/07/2024: 10:38 PM 1.0 11.2 29 Troponin I, High Sensitivity Date/Time Value Ref Range Status 07/08/2024 04:17 AM 526 (HH) 0 - 20 ng/L Final Comment: Previous result verified on 07/07/2024 2315 on specimen/case [id number] called with component [facility] for procedure Troponin I, High Sensitivity with value 646 ng/L. 07/07/2024 11:42 PM 546 (HH) 0 - 20 ng/L Final Comment: Previous result verified on 07/07/2024 2315 on specimen/case [id number] called with component [facility] for procedure Troponin I, High Sensitivity with value 646 ng/L. 07/07/2024 10:38 PM 646 (HH) 0 - 20 ng/L Final Hemoglobin A1C Date/Time Value Ref Range Status 07/08/2024 04:18 AM 5.8 (H) see below % Final LDL Calculated Date/Time Value Ref Range Status 07/08/2024 04:17 AM 174 (H) <=99 mg/dL Final Comment: Near Borderline AGE Desirable Optimal High High Very High 0-19 Y 0 - 109 --- 110-129 >/= 130 ---- 20-24 Y 0 - 119 --- 120-159 >/= 160 ---- >24 Y 0 - 99 100-129 130-159 160-189 >/=190 VLDL Date/Time Value Ref Range Status 07/08/2024 04:17 AM 15 0 - 40 mg/dL Final Last I/O: I/O last 3 completed shifts: In: 304.8 (3.6 mL/kg) [I.V.:304.8 (3.6 mL/kg)] Out: 325 (3.8 mL/kg) [Urine:325 (0.1 mL/kg/hr)] Weight: 85.6 kg Past Cardiology Tests (Last 3 Years): EKG: ECG 12 lead (Preliminary) Echo: Transthoracic Echo (TTE) Complete 07/10/2024 Ejection Fractions: EF Date/Time Value Ref Range Status 07/10/2024 07:18 AM 63 % Cath: No results found for this or any previous visit from the past 1095 days. Stress Test: No results found for this or any previous visit from the past 1095 days. Cardiac Imaging: No results found for this or any previous visit from the past 1095 days. Past Medical History: He has no past medical history on file. Past Surgical History: He has no past surgical history on file. Social History: He reports that he has quit smoking. His smoking use included cigarettes. He has quit using smokeless tobacco. He reports current alcohol use. He reports that he does not use drugs. Family History: No family history on file. Allergies: Patient has no known allergies. Inpatient Medications: Scheduled medications Medication Dose Route Frequency aspirin 81 mg oral Daily atorvastatin 40 mg oral Nightly perflutren protein A microsphere 0.5 mL intravenous Once in imaging polyethylene glycol 17 g oral Daily sulfur hexafluoride microsphr 2 mL intravenous Once in imaging PRN medications Medication acetaminophen Or acetaminophen Or acetaminophen acetaminophen Or acetaminophen Or acetaminophen heparin hydrALAZINE Followed by [START ON 07/11/2024] hydrALAZINE labetaloL oxygen Continuous Medications Medication Dose Last Rate heparin 0-4,000 Units/hr 800 Units/hr (07/10/24 1207) Outpatient Medications: No current outpatient medications Physical Exam: General: alert, oriented and in no acute distress Neck: supple; trachea midline; no masses; no JVD Chest: clear breath sounds bilaterally; no wheezing Cardio: regular rhythm, S1S2 normal, no murmurs Abdomen: Soft, non-tender, non-distension, no organomegaly Extremities: no clubbing/cyanosis/edema Psychiatric: Normal mood and affect; little slurred speech with rhyme deviation Assessment/Plan Mr. Cisco Saini is a 68 y.o. former smoker male being consulted by the Cardiology team for troponin leak. Patient with prior medical history significant for obesity. He presented to ED [facility] on 07/07/2024 complaining of right-sided weakness. He endorses that he lost strength in the right side of his body. Before this he was feeling pretty normal. His symptoms improved in the hospital. He denied chest pain, shortness of breath, palpitations, leg edema, lightheadedness, headaches, fever, chills, orthopnea, paroxysmal nocturnal dyspnea or syncope. He lives at home independently. EKG shows normal sinus rhythm with no signs of acute ischemic changes. Trop [id number]. He was admitted for clinical compensation. Assessment # Troponin Elevation - Trop [id number] - Troponin elevation is likely attributable to non-ischemic myocardial injury due to myocardial imbalance in oxygen supply/demand secondary to underlying stroke. However, due to very elevated troponin levels, would suggest ischemia investigation. - EKG shows normal sinus rhythm with no signs of acute ischemic changes. - The echocardiogram showed normal LVEF 60% with no wall motion abnormalities. Impaired relaxation pattern of left ventricle diastolic filling. Patent foramen ovale. - Would suggest to continue current medical management per primary team. - Would suggest to keep ASA and high intensity statins if no contra-indications. - Please refer the patient to our Cardiology clinic upon discharge. - Would suggest assessment of myocardial ischemia with Left Heart Catheterization either as inpatient or outpatient. - The natural history of atherosclerosis was discussed with the patient. The treatment options including GDMT, percutaneous intervention or surgical intervention were discussed with the patient. All the risks, benefits and alternative procedures were discussed. Complications of the procedure were also discussed, including but not limited to risk of bleeding, stroke, infarct, infection, urgent cardiac surgery or . All questions were answered and the informed consent was obtained. After aforementioned testing and consultation, Left Heart Catheterization with potential Percutaneous Coronary Intervention would be a reasonable approach if the patient is candidate. - Please keep NPO after midnight. # CVA / Stroke - MRI brain: Acute/subacute lacunar infarction in the left centrum semiovale measuring a proximally 1 cm x 1 cm x 2 cm in size *Remote lacunar infarction with hemosiderin deposition in the adjacent left centrum semiovale *Volume loss with small-vessel ischemic change - Keep ASA, statins - Follow up with Neurology team. Thank you for allowing me to participate in the care of this patient. Please reach me out if you have any questions or if you need any clarifications regarding the patient's care. Peripheral IV 07/07/24 20 G Right;Dorsal Hand (Active) Site Assessment Clean;Dry;Intact 07/10/24 09 Dressing Status Clean;Dry 07/10/24 09 Number of days: 3 Peripheral IV 07/07/24 20 G Left Antecubital (Active) Site Assessment Clean;Dry;Intact 07/10/24 09 Dressing Status Clean;Dry 07/10/24 09 Number of days: 3 Code Status: Full Code Emanuel Kwong MD Cardiology [facility] Work Phone: 07-11-2024 History and physical note H&P reviewed. The patient was examined and there are no changes to the H&P. Source Note - Emanuel Kwong MD - 07/10/2024 5:59 PM EDT Inpatient consult to Cardiology Consult performed by: Emanuel Kwong MD Consult ordered by: Candelario Montana MD Reason for consult: troponin leak History Of Present Illness: Mr. Cisco Saini is a 68 y.o. former smoker male being consulted by the Cardiology team for troponin leak. Patient with prior medical history significant for obesity. He presented to ED [facility] on 07/07/2024 complaining of right-sided weakness. He endorses that he lost strength in the right side of his body. Before this he was feeling pretty normal. His symptoms improved in the hospital. He denied chest pain, shortness of breath, palpitations, leg edema, lightheadedness, headaches, fever, chills, orthopnea, paroxysmal nocturnal dyspnea or syncope. He lives at home independently. EKG shows normal sinus rhythm with no signs of acute ischemic changes. Trop 526-646. He was admitted for clinical compensation. Last Recorded Vitals: Vitals: 07/10/24 0800 07/10/24 1200 07/10/24 1225 07/10/24 1600 BP: 146/90 130/85 137/78 BP Location: Left arm Left arm Patient Position: Lying Lying Pulse: 79 81 80 Resp: 18 18 16 Temp: 36.6 C (97.9 F) 36.5 C (97.7 F) 36.7 C (98.1 F) TempSrc: Temporal Temporal Temporal SpO2: 93% 93% 92% 95% Weight: Height: Last Labs: CBC - 07/10/2024: 4:23 AM 8.0 15.1 226 45.4 CMP - 07/10/2024: 4:23 AM 8.6 7.0 26 --- 0.5 _ 4.3 27 85 PTT - 07/07/2024: 10:38 PM 1.0 11.2 29 Troponin I, High Sensitivity Date/Time Value Ref Range Status 07/08/2024 04:17 AM 526 (HH) 0 - 20 ng/L Final Comment: Previous result verified on 07/07/2024 2315 on specimen/case [id number] called with component [facility] for procedure Troponin I, High Sensitivity with value 646 ng/L. 07/07/2024 11:42 PM 546 (HH) 0 - 20 ng/L Final Comment: Previous result verified on 07/07/2024 2315 on specimen/case [id number] called with component [facility] for procedure Troponin I, High Sensitivity with value 646 ng/L. 07/07/2024 10:38 PM 646 (HH) 0 - 20 ng/L Final Hemoglobin A1C Date/Time Value Ref Range Status 07/08/2024 04:18 AM 5.8 (H) see below % Final LDL Calculated Date/Time Value Ref Range Status 07/08/2024 04:17 AM 174 (H) <=99 mg/dL Final Comment: Near Borderline AGE Desirable Optimal High High Very High 0-19 Y 0 - 109 --- 110-129 >/= 130 ---- 20-24 Y 0 - 119 --- 120-159 >/= 160 ---- >24 Y 0 - 99 100-129 130-159 160-189 >/=190 VLDL Date/Time Value Ref Range Status 07/08/2024 04:17 AM 15 0 - 40 mg/dL Final Last I/O: I/O last 3 completed shifts: In: 304.8 (3.6 mL/kg) [I.V.:304.8 (3.6 mL/kg)] Out: 325 (3.8 mL/kg) [Urine:325 (0.1 mL/kg/hr)] Weight: 85.6 kg Past Cardiology Tests (Last 3 Years): EKG: ECG 12 lead (Preliminary) Echo: Transthoracic Echo (TTE) Complete 07/10/2024 Ejection Fractions: EF Date/Time Value Ref Range Status 07/10/2024 07:18 AM 63 % Cath: No results found for this or any previous visit from the past 1095 days. Stress Test: No results found for this or any previous visit from the past 1095 days. Cardiac Imaging: No results found for this or any previous visit from the past 1095 days. Past Medical History: He has no past medical history on file. Past Surgical History: He has no past surgical history on file. Social History: He reports that he has quit smoking. His smoking use included cigarettes. He has quit using smokeless tobacco. He reports current alcohol use. He reports that he does not use drugs. Family History: No family history on file. Allergies: Patient has no known allergies. Inpatient Medications: Scheduled medications Medication Dose Route Frequency aspirin 81 mg oral Daily atorvastatin 40 mg oral Nightly perflutren protein A microsphere 0.5 mL intravenous Once in imaging polyethylene glycol 17 g oral Daily sulfur hexafluoride microsphr 2 mL intravenous Once in imaging PRN medications Medication acetaminophen Or acetaminophen Or acetaminophen acetaminophen Or acetaminophen Or acetaminophen heparin hydrALAZINE Followed by [START ON 07/11/2024] hydrALAZINE labetaloL oxygen Continuous Medications Medication Dose Last Rate heparin 0-4,000 Units/hr 800 Units/hr (07/10/24 1207) Outpatient Medications: No current outpatient medications Physical Exam: General: alert, oriented and in no acute distress Neck: supple; trachea midline; no masses; no JVD Chest: clear breath sounds bilaterally; no wheezing Cardio: regular rhythm, S1S2 normal, no murmurs Abdomen: Soft, non-tender, non-distension, no organomegaly Extremities: no clubbing/cyanosis/edema Psychiatric: Normal mood and affect; little slurred speech with rhyme deviation Assessment/Plan Mr. Cisco Saini is a 68 y.o. former smoker male being consulted by the Cardiology team for troponin leak. Patient with prior medical history significant for obesity. He presented to ED [facility] on 07/07/2024 complaining of right-sided weakness. He endorses that he lost strength in the right side of his body. Before this he was feeling pretty normal. His symptoms improved in the hospital. He denied chest pain, shortness of breath, palpitations, leg edema, lightheadedness, headaches, fever, chills, orthopnea, paroxysmal nocturnal dyspnea or syncope. He lives at home independently. EKG shows normal sinus rhythm with no signs of acute ischemic changes. Trop [id number]. He was admitted for clinical compensation. Assessment # Troponin Elevation - Trop 526-646 - Troponin elevation is likely attributable to non-ischemic myocardial injury due to myocardial imbalance in oxygen supply/demand secondary to underlying stroke. However, due to very elevated troponin levels, would suggest ischemia investigation. - EKG shows normal sinus rhythm with no signs of acute ischemic changes. - The echocardiogram showed normal LVEF 60% with no wall motion abnormalities. Impaired relaxation pattern of left ventricle diastolic filling. Patent foramen ovale. - Would suggest to continue current medical management per primary team. - Would suggest to keep ASA and high intensity statins if no contra-indications. - Please refer the patient to our Cardiology clinic upon discharge. - Would suggest assessment of myocardial ischemia with Left Heart Catheterization either as inpatient or outpatient. - The natural history of atherosclerosis was discussed with the patient. The treatment options including GDMT, percutaneous intervention or surgical intervention were discussed with the patient. All the risks, benefits and alternative procedures were discussed. Complications of the procedure were also discussed, including but not limited to risk of bleeding, stroke, infarct, infection, urgent cardiac surgery or . All questions were answered and the informed consent was obtained. After aforementioned testing and consultation, Left Heart Catheterization with potential Percutaneous Coronary Intervention would be a reasonable approach if the patient is candidate. - Please keep NPO after midnight. # CVA / Stroke - MRI brain: Acute/subacute lacunar infarction in the left centrum semiovale measuring a proximally 1 cm x 1 cm x 2 cm in size *Remote lacunar infarction with hemosiderin deposition in the adjacent left centrum semiovale *Volume loss with small-vessel ischemic change - Keep ASA, statins - Follow up with Neurology team. Thank you for allowing me to participate in the care of this patient. Please reach me out if you have any questions or if you need any clarifications regarding the patient's care. Peripheral IV 07/07/24 20 G Right;Dorsal Hand (Active) Site Assessment Clean;Dry;Intact 07/10/24899 Dressing Status Clean;Dry 07/10/24899 Number of days: 3 Peripheral IV 07/07/24 20 G Left Antecubital (Active) Site Assessment Clean;Dry;Intact 07/10/24899 Dressing Status Clean;Dry 07/10/24899 Number of days: 3 Code Status: Full Code Emanuel Kwong MD Cardiology History Of Present Illness Cisco Saini is a 68 y.o. male presenting with right-sided weakness. He presented to the emergency room with a little bit of a myriad of complaints. He states that he was at work today and around noon he started feeling poorly but finished his workday went home and relaxed for little bit still felt pretty poor and came to [place] to do some jobs and then went home and then was eating and after he finished eating and was getting ready to eat ice cream his right side quit working he was not able to eat the ice cream he was also not able to walk. When he did his errands here in [place] he was not walking very well and was asked a couple of times if he was okay but he stated that he just felt off and so kept going Before this he was feeling pretty normal Since arrival here in the emergency room his weakness has abated and he is pretty much feeling normal although he states he has not tried to walk yet so not sure how that would feel He really has no past medical history he does not take meds on a chronic basis He lives at home independently. He quit smoking back in 1998 Past Medical History He has no past medical history on file. Surgical History He has no past surgical history on file. Social History He has no history on file for tobacco use, alcohol use, and drug use. Family History No family history on file. Allergies Patient has no known allergies. Review of Systems A full 10 point review of systems was obtained is negative except HPI as above Physical Exam Constitutional: Appearance: Normal appearance. He is obese. HENT: Head: Normocephalic and atraumatic. Comments: Face appears just a little bit asymmetric with deeper folds on the left side than the right. He feels like his face looks normal to him Right Ear: External ear normal. Left Ear: External ear normal. Nose: Nose normal. Mouth/Throat: Mouth: Mucous membranes are moist. Pharynx: Oropharynx is clear. Eyes: Extraocular Movements: Extraocular movements intact. Conjunctiva/sclera: Conjunctivae normal. Pupils: Pupils are equal, round, and reactive to light. Cardiovascular: Rate and Rhythm: Normal rate and regular rhythm. Pulmonary: Effort: Pulmonary effort is normal. Breath sounds: Normal breath sounds. Abdominal: General: Abdomen is flat. Palpations: Abdomen is soft. Skin: General: Skin is warm and dry. Neurological: General: No focal deficit present. Mental Status: He is alert and oriented to person, place, and time. Psychiatric: Mood and Affect: Mood normal. Behavior: Behavior normal. Last Recorded Vitals BP 132/82 (BP Location: Left arm, Patient Position: Lying) Pulse 81 Resp 16 Wt 81.6 kg (180 lb) SpO2 95% Relevant Results Results reviewed Assessment/Plan Assessment & Plan TIA (transient ischemic attack) Elevated troponin TIA Right-sided weakness and dysarthria: Resolved Elevated troponin with negative chest pain and negative EKG findings Plan: At this time his deficits seem to have resolved and he is pretty much feeling back towards his normal self He has absolutely no chest pain He also does not have a family history of any heart disease Overall however he has very vague symptoms and has a very elevated troponin level and so not only do we need to continue to watch his neurological status but I think we need to be very careful about cardiac issues here. I am going to start him on a heparin drip low intensity We will check lipid panel and hemoglobin A1c I will continue aspirin and we will start him on low-dose statin for now We will continue to watch neurologic function closely I will order an MRI We will also get an echo I will also consult cardiology. With a very elevated troponin and no major insult with his very vague symptoms likely need to rule out an ischemic event. We will use Lovenox for DVT prophylaxis We will continue to monitor very closely Ghanshyam Kearns DO documented in this encounter [facility] Work Phone: 07-10-2024 Plan of care note Problem: Safety - Adult Goal: Free from fall injury Outcome: Progressing Problem: Chronic Conditions and Co-morbidities Goal: Patient's chronic conditions and co-morbidity symptoms are monitored and maintained or improved Outcome: Progressing Problem: Fall/Injury Goal: Not fall by end of shift Outcome: Progressing Goal: Be free from injury by end of the shift Outcome: Progressing Goal: Verbalize understanding of personal risk factors for fall in the hospital Outcome: Progressing Goal: Verbalize understanding of risk factor reduction measures to prevent injury from fall in the home Outcome: Progressing Goal: Use assistive devices by end of the shift Outcome: Progressing Goal: Pace activities to prevent fatigue by end of the shift Outcome: Progressing Problem: General Stroke Goal: Establish a mutual usp goal with patient by discharge Outcome: Progressing Goal: Demonstrate improvement in neurological exam throughout the shift Outcome: Progressing Goal: Maintain BP within ordered limits throughout shift Outcome: Progressing Goal: Participate in treatment (ie., meds, therapy) throughout shift Outcome: Progressing Goal: No symptoms of aspiration throughout shift Outcome: Progressing Goal: No symptoms of hemorrhage throughout shift Outcome: Progressing Goal: Tolerate enteral feeding throughout shift Outcome: Progressing Goal: Decreased nausea/vomiting throughout shift Outcome: Progressing Goal: Controlled blood glucose throughout shift Outcome: Progressing Goal: Out of bed three times today Outcome: Progressing Problem: Skin Goal: Decreased wound size/increased tissue granulation at next dressing change Outcome: Progressing Goal: Participates in plan/prevention/treatment measures Outcome: Progressing Goal: Prevent/manage excess moisture Outcome: Progressing Goal: Prevent/minimize sheer/friction injuries Outcome: Progressing Goal: Promote/optimize nutrition Outcome: Progressing Goal: Promote skin healing Outcome: Progressing The patient's goals for the shift include The clinical goals for the shift include Patient will have stable NIH scale this shift. T [facility] 07-10-2024 Consult note Associated Order (s): Inpatient consult to Cardiology Inpatient consult to Cardiology Consult performed by: Emanuel Kwong MD Consult ordered by: Candelario Montana MD Reason for consult: troponin leak History Of Present Illness: Mr. Cisco Saini is a 68 y.o. former smoker male being consulted by the Cardiology team for troponin leak. Patient with prior medical history significant for obesity. He presented to ED [facility] on 07/07/2024 complaining of right-sided weakness. He endorses that he lost strength in the right side of his body. Before this he was feeling pretty normal. His symptoms improved in the hospital. He denied chest pain, shortness of breath, palpitations, leg edema, lightheadedness, headaches, fever, chills, orthopnea, paroxysmal nocturnal dyspnea or syncope. He lives at home independently. EKG shows normal sinus rhythm with no signs of acute ischemic changes. Trop [id number]. He was admitted for clinical compensation. Last Recorded Vitals: Vitals: 07/10/24 0800 07/10/24 1200 07/10/24 1225 07/10/24 1600 BP: 146/90 130/85 137/78 BP Location: Left arm Left arm Patient Position: Lying Lying Pulse: 79 81 80 Resp: 18 18 16 Temp: 36.6 C (97.9 F) 36.5 C (97.7 F) 36.7 C (98.1 F) TempSrc: Temporal Temporal Temporal SpO2: 93% 93% 92% 95% Weight: Height: Last Labs: CBC - 07/10/2024: 4:23 AM 8.0 15.1 226 45.4 CMP - 07/10/2024: 4:23 AM 8.6 7.0 26 --- 0.5 _ 4.3 27 85 PTT - 07/07/2024: 10:38 PM 1.0 11.2 29 Troponin I, High Sensitivity Date/Time Value Ref Range Status 07/08/2024 04:17 AM 526 (HH) 0 - 20 ng/L Final Comment: Previous result verified on 07/07/20242314 on specimen/case [id number] called with component [facility] for procedure Troponin I, High Sensitivity with value 646 ng/L. 07/07/2024 11:42 PM 546 (HH) 0 - 20 ng/L Final Comment: Previous result verified on 07/07/20242314 on specimen/case [id number] called with component [facility] for procedure Troponin I, High Sensitivity with value 646 ng/L. 07/07/2024 10:38 PM 646 (HH) 0 - 20 ng/L Final Hemoglobin A1C Date/Time Value Ref Range Status 07/08/2024 04:18 AM 5.8 (H) see below % Final LDL Calculated Date/Time Value Ref Range Status 07/08/2024 04:17 AM 174 (H) <=99 mg/dL Final Comment: Near Borderline AGE Desirable Optimal High High Very High 0-19 Y 0 - 109 --- 110-129 >/= 130 ---- 20-24 Y 0 - 119 --- 120-159 >/= 160 ---- >24 Y 0 - 99 100-129 130-159 160-189 >/=190 VLDL Date/Time Value Ref Range Status 07/08/2024 04:17 AM 15 0 - 40 mg/dL Final Last I/O: I/O last 3 completed shifts: In: 304.8 (3.6 mL/kg) [I.V.:304.8 (3.6 mL/kg)] Out: 325 (3.8 mL/kg) [Urine:325 (0.1 mL/kg/hr)] Weight: 85.6 kg Past Cardiology Tests (Last 3 Years): EKG: ECG 12 lead (Preliminary) Echo: Transthoracic Echo (TTE) Complete 07/10/2024 Ejection Fractions: EF Date/Time Value Ref Range Status 07/10/2024 07:18 AM 63 % Cath: No results found for this or any previous visit from the past 1095 days. Stress Test: No results found for this or any previous visit from the past 1095 days. Cardiac Imaging: No results found for this or any previous visit from the past 1095 days. Past Medical History: He has no past medical history on file. Past Surgical History: He has no past surgical history on file. Social History: He reports that he has quit smoking. His smoking use included cigarettes. He has quit using smokeless tobacco. He reports current alcohol use. He reports that he does not use drugs. Family History: No family history on file. Allergies: Patient has no known allergies. Inpatient Medications: Scheduled medications Medication Dose Route Frequency aspirin 81 mg oral Daily atorvastatin 40 mg oral Nightly perflutren protein A microsphere 0.5 mL intravenous Once in imaging polyethylene glycol 17 g oral Daily sulfur hexafluoride microsphr 2 mL intravenous Once in imaging PRN medications Medication acetaminophen Or acetaminophen Or acetaminophen acetaminophen Or acetaminophen Or acetaminophen heparin hydrALAZINE Followed by [START ON 07/11/2024] hydrALAZINE labetaloL oxygen Continuous Medications Medication Dose Last Rate heparin 0-4,000 Units/hr 800 Units/hr (07/10/24 1207) Outpatient Medications: No current outpatient medications Physical Exam: General: alert, oriented and in no acute distress Neck: supple; trachea midline; no masses; no JVD Chest: clear breath sounds bilaterally; no wheezing Cardio: regular rhythm, S1S2 normal, no murmurs Abdomen: Soft, non-tender, non-distension, no organomegaly Extremities: no clubbing/cyanosis/edema Psychiatric: Normal mood and affect; little slurred speech with rhyme deviation Assessment/Plan Mr. Cisco Saini is a 68 y.o. former smoker male being consulted by the Cardiology team for troponin leak. Patient with prior medical history significant for obesity. He presented to ED [facility] on 07/07/2024 complaining of right-sided weakness. He endorses that he lost strength in the right side of his body. Before this he was feeling pretty normal. His symptoms improved in the hospital. He denied chest pain, shortness of breath, palpitations, leg edema, lightheadedness, headaches, fever, chills, orthopnea, paroxysmal nocturnal dyspnea or syncope. He lives at home independently. EKG shows normal sinus rhythm with no signs of acute ischemic changes. Trop [id number]. He was admitted for clinical compensation. Assessment # Troponin Elevation - Trop 526-646 - Troponin elevation is likely attributable to non-ischemic myocardial injury due to myocardial imbalance in oxygen supply/demand secondary to underlying stroke. However, due to very elevated troponin levels, would suggest ischemia investigation. - EKG shows normal sinus rhythm with no signs of acute ischemic changes. - The echocardiogram showed normal LVEF 60% with no wall motion abnormalities. Impaired relaxation pattern of left ventricle diastolic filling. Patent foramen ovale. - Would suggest to continue current medical management per primary team. - Would suggest to keep ASA and high intensity statins if no contra-indications. - Please refer the patient to our Cardiology clinic upon discharge. - Would suggest assessment of myocardial ischemia with Left Heart Catheterization either as inpatient or outpatient. - The natural history of atherosclerosis was discussed with the patient. The treatment options including GDMT, percutaneous intervention or surgical intervention were discussed with the patient. All the risks, benefits and alternative procedures were discussed. Complications of the procedure were also discussed, including but not limited to risk of bleeding, stroke, infarct, infection, urgent cardiac surgery or . All questions were answered and the informed consent was obtained. After aforementioned testing and consultation, Left Heart Catheterization with potential Percutaneous Coronary Intervention would be a reasonable approach if the patient is candidate. - Please keep NPO after midnight. # CVA / Stroke - MRI brain: Acute/subacute lacunar infarction in the left centrum semiovale measuring a proximally 1 cm x 1 cm x 2 cm in size *Remote lacunar infarction with hemosiderin deposition in the adjacent left centrum semiovale *Volume loss with small-vessel ischemic change - Keep ASA, statins - Follow up with Neurology team. Thank you for allowing me to participate in the care of this patient. Please reach me out if you have any questions or if you need any clarifications regarding the patient's care. Peripheral IV 07/07/24 20 G Right;Dorsal Hand (Active) Site Assessment Clean;Dry;Intact 07/10/24899 Dressing Status Clean;Dry 07/10/24899 Number of days: 3 Peripheral IV 07/07/24 20 G Left Antecubital (Active) Site Assessment Clean;Dry;Intact 07/10/24899 Dressing Status Clean;Dry 07/10/24899 Number of days: 3 Code Status: Full Code Emanuel Kwong MD Cardiology [facility] Work Phone: 07-10-2024 Consult note Associated Order (s): Inpatient consult to Cardiology Inpatient consult to Cardiology Consult performed by: Emanuel Kwong MD Consult ordered by: Candelario Montana MD Reason for consult: troponin leak History Of Present Illness: Mr. Cisco Saini is a 68 y.o. former smoker male being consulted by the Cardiology team for troponin leak. Patient with prior medical history significant for obesity. He presented to ED [facility] on 07/07/2024 complaining of right-sided weakness. He endorses that he lost strength in the right side of his body. Before this he was feeling pretty normal. His symptoms improved in the hospital. He denied chest pain, shortness of breath, palpitations, leg edema, lightheadedness, headaches, fever, chills, orthopnea, paroxysmal nocturnal dyspnea or syncope. He lives at home independently. EKG shows normal sinus rhythm with no signs of acute ischemic changes. Trop [id number]. He was admitted for clinical compensation. Last Recorded Vitals: Vitals: 07/10/24 0800 07/10/24 1200 07/10/24 1225 07/10/24 1600 BP: 146/90 130/85 137/78 BP Location: Left arm Left arm Patient Position: Lying Lying Pulse: 79 81 80 Resp: 18 18 16 Temp: 36.6 C (97.9 F) 36.5 C (97.7 F) 36.7 C (98.1 F) TempSrc: Temporal Temporal Temporal SpO2: 93% 93% 92% 95% Weight: Height: Last Labs: CBC - 07/10/2024: 4:23 AM 8.0 15.1 226 45.4 CMP - 07/10/2024: 4:23 AM 8.6 7.0 26 --- 0.5 _ 4.3 27 85 PTT - 07/07/2024: 10:38 PM 1.0 11.2 29 Troponin I, High Sensitivity Date/Time Value Ref Range Status 07/08/2024 04:17 AM 526 (HH) 0 - 20 ng/L Final Comment: Previous result verified on 07/07/20242314 on specimen/case [id number] called with component [facility] for procedure Troponin I, High Sensitivity with value 646 ng/L. 07/07/2024 11:42 PM 546 (HH) 0 - 20 ng/L Final Comment: Previous result verified on 07/07/20242314 on specimen/case [id number] called with component [facility] for procedure Troponin I, High Sensitivity with value 646 ng/L. 07/07/2024 10:38 PM 646 (HH) 0 - 20 ng/L Final Hemoglobin A1C Date/Time Value Ref Range Status 07/08/2024 04:18 AM 5.8 (H) see below % Final LDL Calculated Date/Time Value Ref Range Status 07/08/2024 04:17 AM 174 (H) <=99 mg/dL Final Comment: Near Borderline AGE Desirable Optimal High High Very High 0-19 Y 0 - 109 --- 110-129 >/= 130 ---- 20-24 Y 0 - 119 --- 120-159 >/= 160 ---- >24 Y 0 - 99 100-129 130-159 160-189 >/=190 VLDL Date/Time Value Ref Range Status 07/08/2024 04:17 AM 15 0 - 40 mg/dL Final Last I/O: I/O last 3 completed shifts: In: 304.8 (3.6 mL/kg) [I.V.:304.8 (3.6 mL/kg)] Out: 325 (3.8 mL/kg) [Urine:325 (0.1 mL/kg/hr)] Weight: 85.6 kg Past Cardiology Tests (Last 3 Years): EKG: ECG 12 lead (Preliminary) Echo: Transthoracic Echo (TTE) Complete 07/10/2024 Ejection Fractions: EF Date/Time Value Ref Range Status 07/10/2024 07:18 AM 63 % Cath: No results found for this or any previous visit from the past 1095 days. Stress Test: No results found for this or any previous visit from the past 1095 days. Cardiac Imaging: No results found for this or any previous visit from the past 1095 days. Past Medical History: He has no past medical history on file. Past Surgical History: He has no past surgical history on file. Social History: He reports that he has quit smoking. His smoking use included cigarettes. He has quit using smokeless tobacco. He reports current alcohol use. He reports that he does not use drugs. Family History: No family history on file. Allergies: Patient has no known allergies. Inpatient Medications: Scheduled medications Medication Dose Route Frequency aspirin 81 mg oral Daily atorvastatin 40 mg oral Nightly perflutren protein A microsphere 0.5 mL intravenous Once in imaging polyethylene glycol 17 g oral Daily sulfur hexafluoride microsphr 2 mL intravenous Once in imaging PRN medications Medication acetaminophen Or acetaminophen Or acetaminophen acetaminophen Or acetaminophen Or acetaminophen heparin hydrALAZINE Followed by [START ON 07/11/2024] hydrALAZINE labetaloL oxygen Continuous Medications Medication Dose Last Rate heparin 0-4,000 Units/hr 800 Units/hr (07/10/24 1207) Outpatient Medications: No current outpatient medications Physical Exam: General: alert, oriented and in no acute distress Neck: supple; trachea midline; no masses; no JVD Chest: clear breath sounds bilaterally; no wheezing Cardio: regular rhythm, S1S2 normal, no murmurs Abdomen: Soft, non-tender, non-distension, no organomegaly Extremities: no clubbing/cyanosis/edema Psychiatric: Normal mood and affect; little slurred speech with rhyme deviation Assessment/Plan Mr. Cisco Saini is a 68 y.o. former smoker male being consulted by the Cardiology team for troponin leak. Patient with prior medical history significant for obesity. He presented to ED [facility] on 07/07/2024 complaining of right-sided weakness. He endorses that he lost strength in the right side of his body. Before this he was feeling pretty normal. His symptoms improved in the hospital. He denied chest pain, shortness of breath, palpitations, leg edema, lightheadedness, headaches, fever, chills, orthopnea, paroxysmal nocturnal dyspnea or syncope. He lives at home independently. EKG shows normal sinus rhythm with no signs of acute ischemic changes. Trop [id number]. He was admitted for clinical compensation. Assessment # Troponin Elevation - Trop [id number] - Troponin elevation is likely attributable to non-ischemic myocardial injury due to myocardial imbalance in oxygen supply/demand secondary to underlying stroke. However, due to very elevated troponin levels, would suggest ischemia investigation. - EKG shows normal sinus rhythm with no signs of acute ischemic changes. - The echocardiogram showed normal LVEF 60% with no wall motion abnormalities. Impaired relaxation pattern of left ventricle diastolic filling. Patent foramen ovale. - Would suggest to continue current medical management per primary team. - Would suggest to keep ASA and high intensity statins if no contra-indications. - Please refer the patient to our Cardiology clinic upon discharge. - Would suggest assessment of myocardial ischemia with Left Heart Catheterization either as inpatient or outpatient. - The natural history of atherosclerosis was discussed with the patient. The treatment options including GDMT, percutaneous intervention or surgical intervention were discussed with the patient. All the risks, benefits and alternative procedures were discussed. Complications of the procedure were also discussed, including but not limited to risk of bleeding, stroke, infarct, infection, urgent cardiac surgery or . All questions were answered and the informed consent was obtained. After aforementioned testing and consultation, Left Heart Catheterization with potential Percutaneous Coronary Intervention would be a reasonable approach if the patient is candidate. - Please keep NPO after midnight. # CVA / Stroke - MRI brain: Acute/subacute lacunar infarction in the left centrum semiovale measuring a proximally 1 cm x 1 cm x 2 cm in size *Remote lacunar infarction with hemosiderin deposition in the adjacent left centrum semiovale *Volume loss with small-vessel ischemic change - Keep ASA, statins - Follow up with Neurology team. Thank you for allowing me to participate in the care of this patient. Please reach me out if you have any questions or if you need any clarifications regarding the patient's care. Peripheral IV 07/07/24 20 G Right;Dorsal Hand (Active) Site Assessment Clean;Dry;Intact 07/10/24 0900 Dressing Status Clean;Dry 07/10/24 0900 Number of days: 3 Peripheral IV 07/07/24 20 G Left Antecubital (Active) Site Assessment Clean;Dry;Intact 07/10/24 0900 Dressing Status Clean;Dry 07/10/24 0900 Number of days: 3 Code Status: Full Code Emanuel Kwong MD Cardiology Associated Order(s): IP CONSULT TO NUTRITION SERVICES Nutrition Initial Assessment: Nutrition Assessment Medical history per chart: Patient presenting with right sided weakness, TIA. History reviewed. No pertinent past medical history. Nutrition History: Food and Nutrient History: Attempted to call patient, but unavailable. Per nursing he consumed 100% of breakfast today. Will continue to monitor intakes, weights. Current Diet: Adult diet Cardiac; 70 gm fat; 2 - 3 grams Sodium Nutrition Related Findings: Oral Symptoms: Teeth: Intact GI symptoms: no GI issues at this time. BM: Last BM Date: 07/08/24 Food allergies: NKFA. Meds/Labs reviewed. aspirin, 81 mg, oral, Daily atorvastatin, 40 mg, oral, Nightly perflutren protein A microsphere, 0.5 mL, intravenous, Once in imaging polyethylene glycol, 17 g, oral, Daily sulfur hexafluoride microsphr, 2 mL, intravenous, Once in imaging heparin, 0-4,000 Units/hr, Last Rate: 800 Units/hr (07/09/24 0545) Nutrition Significant Labs: Results from last 7 days Lab Units 07/10/24 0423 07/09/24 0514 07/08/24 0417 GLUCOSE mg/dL 108* 114* 113* SODIUM mmol/L 137 138 137 POTASSIUM mmol/L 3.8 3.8 3.7 CHLORIDE mmol/L 105 107 106 CO2 mmol/L 23 23 22 BUN mg/dL 13 12 20 CREATININE mg/dL 1.08 1.11 1.11 EGFR mL/min/1.73m*2 74 72 72 CALCIUM mg/dL 8.6 8.6 8.7 Lab Results Component Value Date HGBA1C 5.8 (H) 07/08/2024 Results from last 7 days Lab Units 07/10/24 0757 07/09/24 2002 07/09/24 1608 07/09/24 1546 07/09/24 1118 07/07/24 2231 POCT GLUCOSE mg/dL 109* 130* 131* 108* 133* 77 Lab Results Component Value Date CHOL 235 (H) 07/08/2024 Lab Results Component Value Date HDL 46.0 07/08/2024 Lab Results Component Value Date LDLCALC 174 (H) 07/08/2024 Lab Results Component Value Date TRIG 75 07/08/2024 Anthropometrics: Height: 165.1 cm (5' 5) Weight: 85.6 kg (188 lb 11.4 oz) BMI (Calculated): 31.4 Amputation Calculations: BMI Amputation Adjustment: No Weight History: Wt Readings from Last 10 Encounters: 07/08/24 85.6 kg (188 lb 11.4 oz) Weight Change %: Weight History / % Weight Change: CBW: 188 lbs. No weight hx noted. Nutrition Focused Physical Exam Findings: defer: RD covering remotely Subcutaneous Fat Loss: Orbital Fat Pads: Defer Buccal Fat Pads: Defer Triceps: Defer Muscle Wasting: Temporalis: Defer Pectoralis (Clavicular Region): Defer Deltoid/Trapezius: Defer Interosseous: Defer Trapezius/Infraspinatus/Supraspina tus (Scapular Region): Defer Quadriceps: Defer Gastrocnemius: Defer Edema: Edema: none Physical Findings: Skin: Negative Estimated Needs: Total Energy Estimated Needs (kCal): (1800) Method for Estimating Needs: 30 kcal/kg IBW Total Protein Estimated Needs (g): 74 g Method for Estimating Needs: 1.2 g/kg IBW Total Fluid Estimated Needs (mL): 1800 mL Method for Estimating Needs: 1 mL/kcal Nutrition Diagnosis Nutrition Diagnosis: Malnutrition Diagnosis Patient has Malnutrition Diagnosis: (insufficient data) Nutrition Diagnosis Patient has Nutrition Diagnosis: Yes Diagnosis Status (1): New Nutrition Diagnosis 1: Altered nutrition related to laboratory values Related to (1): endocrine dysfunction As Evidenced by (1): ha1c, accu checks, lipid panel Nutrition Interventions/Recommendations Nutrition Interventions and Recommendations: Nutrition Prescription: Individualized Nutrition Prescription Provided for : Continue current diet Nutrition Interventions: Food and/or Nutrient Delivery Interventions Interventions: Meals and snacks Meals and Snacks: Mineral-modified diet, Fat-modified diet Goal: consume >75% Coordination of Nutrition Care by a Nutrition Professional Collaboration and Referral of Nutrition Care: Collaboration by nutrition professional with other providers Goal: reached out to nursing Nutrition Education: Education Documentation No documentation found. Nutrition Counseling Counseling Theoretical Approach: Other (Comment) Goal: defer-not available Nutrition Monitoring and Evaluation Monitoring/Evaluation: Food/Nutrient Related History Monitoring Monitoring and Evaluation Plan: Energy intake Energy Intake: Estimated energy intake Criteria: meet >75% Body Composition/Growth/Weight History Monitoring and Evaluation Plan: Weight Weight: Measured weight Criteria: stable weight Biochemical Data, Medical Tests and Procedures Monitoring and Evaluation Plan: Electrolyte/renal panel, Glucose/endocrine profile Glucose/Endocrine Profile: Glucose, casual Criteria: wnl Nutrition Focused Physical Findings Monitoring and Evaluation Plan: Skin Skin: Other (Comment) Criteria: maintain skin integrity Time Spent/Follow-up Reminder: Follow Up Time Spent (min): 30 minutes Last Date of Nutrition Visit: 07/10/24 Nutrition Follow-Up Needed?: Dietitian to reassess per policy, 5-7 days documented in this encounter [facility] Work Phone: 07-10-2024 Consult note Associated Order (s): IP CONSULT TO NUTRITION SERVICES Nutrition Initial Assessment: Nutrition Assessment Medical history per chart: Patient presenting with right sided weakness, TIA. History reviewed. No pertinent past medical history. Nutrition History: Food and Nutrient History: Attempted to call patient, but unavailable. Per nursing he consumed 100% of breakfast today. Will continue to monitor intakes, weights. Current Diet: Adult diet Cardiac; 70 gm fat; 2 - 3 grams Sodium Nutrition Related Findings: Oral Symptoms: Teeth: Intact GI symptoms: no GI issues at this time. BM: Last BM Date: 07/08/24 Food allergies: NKFA. Meds/Labs reviewed. aspirin, 81 mg, oral, Daily atorvastatin, 40 mg, oral, Nightly perflutren protein A microsphere, 0.5 mL, intravenous, Once in imaging polyethylene glycol, 17 g, oral, Daily sulfur hexafluoride microsphr, 2 mL, intravenous, Once in imaging heparin, 0-4,000 Units/hr, Last Rate: 800 Units/hr (07/09/24 0545) Nutrition Significant Labs: Results from last 7 days Lab Units 07/10/24 0423 07/09/24 0514 07/08/24 0417 GLUCOSE mg/dL 108* 114* 113* SODIUM mmol/L 137 138 137 POTASSIUM mmol/L 3.8 3.8 3.7 CHLORIDE mmol/L 105 107 106 CO2 mmol/L 23 23 22 BUN mg/dL 13 12 20 CREATININE mg/dL 1.08 1.11 1.11 EGFR mL/min/1.73m*2 74 72 72 CALCIUM mg/dL 8.6 8.6 8.7 Lab Results Component Value Date HGBA1C 5.8 (H) 07/08/2024 Results from last 7 days Lab Units 07/10/24 0757 07/09/24 2002 07/09/24 1608 07/09/24 1546 07/09/24 1118 07/07/24 2231 POCT GLUCOSE mg/dL 109* 130* 131* 108* 133* 77 Lab Results Component Value Date CHOL 235 (H) 07/08/2024 Lab Results Component Value Date HDL 46.0 07/08/2024 Lab Results Component Value Date LDLCALC 174 (H) 07/08/2024 Lab Results Component Value Date TRIG 75 07/08/2024 Anthropometrics: Height: 165.1 cm (5' 5) Weight: 85.6 kg (188 lb 11.4 oz) BMI (Calculated): 31.4 Amputation Calculations: BMI Amputation Adjustment: No Weight History: Wt Readings from Last 10 Encounters: 07/08/24 85.6 kg (188 lb 11.4 oz) Weight Change %: Weight History / % Weight Change: CBW: 188 lbs. No weight hx noted. Nutrition Focused Physical Exam Findings: defer: RD covering remotely Subcutaneous Fat Loss: Orbital Fat Pads: Defer Buccal Fat Pads: Defer Triceps: Defer Muscle Wasting: Temporalis: Defer Pectoralis (Clavicular Region): Defer Deltoid/Trapezius: Defer Interosseous: Defer Trapezius/Infraspinatus/Supraspina tus (Scapular Region): Defer Quadriceps: Defer Gastrocnemius: Defer Edema: Edema: none Physical Findings: Skin: Negative Estimated Needs: Total Energy Estimated Needs (kCal): (1800) Method for Estimating Needs: 30 kcal/kg IBW Total Protein Estimated Needs (g): 74 g Method for Estimating Needs: 1.2 g/kg IBW Total Fluid Estimated Needs (mL): 1800 mL Method for Estimating Needs: 1 mL/kcal Nutrition Diagnosis Nutrition Diagnosis: Malnutrition Diagnosis Patient has Malnutrition Diagnosis: (insufficient data) Nutrition Diagnosis Patient has Nutrition Diagnosis: Yes Diagnosis Status (1): New Nutrition Diagnosis 1: Altered nutrition related to laboratory values Related to (1): endocrine dysfunction As Evidenced by (1): ha1c, accu checks, lipid panel Nutrition Interventions/Recommendations Nutrition Interventions and Recommendations: Nutrition Prescription: Individualized Nutrition Prescription Provided for : Continue current diet Nutrition Interventions: Food and/or Nutrient Delivery Interventions Interventions: Meals and snacks Meals and Snacks: Mineral-modified diet, Fat-modified diet Goal: consume >75% Coordination of Nutrition Care by a Nutrition Professional Collaboration and Referral of Nutrition Care: Collaboration by nutrition professional with other providers Goal: reached out to nursing Nutrition Education: Education Documentation No documentation found. Nutrition Counseling Counseling Theoretical Approach: Other (Comment) Goal: defer-not available Nutrition Monitoring and Evaluation Monitoring/Evaluation: Food/Nutrient Related History Monitoring Monitoring and Evaluation Plan: Energy intake Energy Intake: Estimated energy intake Criteria: meet >75% Body Composition/Growth/Weight History Monitoring and Evaluation Plan: Weight Weight: Measured weight Criteria: stable weight Biochemical Data, Medical Tests and Procedures Monitoring and Evaluation Plan: Electrolyte/renal panel, Glucose/endocrine profile Glucose/Endocrine Profile: Glucose, casual Criteria: wnl Nutrition Focused Physical Findings Monitoring and Evaluation Plan: Skin Skin: Other (Comment) Criteria: maintain skin integrity Time Spent/Follow-up Reminder: Follow Up Time Spent (min): 30 minutes Last Date of Nutrition Visit: 07/10/24 Nutrition Follow-Up Needed?: Dietitian to reassess per policy, 5-7 days [facility] 07-10-2024 Nurse Note 07/10/2024 @ 0911 Pt Awake and Alert, Oriented x4 Resting in bed Speech with mild dysarthria Rt Facial Droop noted Tongue deviates to the Rt Pt denies difficulty swallowing liquids @ this time. MARGAUX Rt side with significant weakness noted, minimal effort against gravity Unable to open Rt hand on own Rt hand grasp much weaker than left Radial pulses palpable/strong Moving Lt extremities without difficulty No sensation deficits noted @ this time. +Ataxia in RUE & RLE Denies visual changes or headache @ this time Follows commands and answers all questions appropriately NIHSS= 9 @ this time Personal Stroke/TIA risk factors reviewed with patient Pt quit smoking in 1998 Denies health history or medications Pt states he has not been to the Dr in 10-years, Dr. 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 Was in the [employer] for 3-years Denies recent falls or use of a walker or cane Reviewed and provided personalized Stroke/TIA education with patient ~ Has had episodes of hypertension while in the hospital, provided Hypertension and Stroke, Life Style changes to prevent Stroke, Stroke Ivan for phone to track daily personal health, Antiplatelets education All handouts reviewed and provided to patient Life After Stroke book, BE FAST booklet w/ magnet reviewed and provided BE FAST magnet and stress ball provided Reviewed How to recognize signs/symptoms of Stroke and the importance of calling 911 with the onset of symptoms. Pt stated his Last Known Well was approx 1/2hr prior to his shift ending @ 2pm, he stated he felt weakness all over. He finished his shift @ work, went home and rested. Upon running errands later afternoon, he had significant weakness in his Right Leg while walking really off balance Explained the concept of Time is Brain and the urgency of calling 911 with symptoms Pt had MRI & ECHO completed this morning and is awaiting the results to determine the next steps in his care. Education documented in EMR, Stroke Program info provided to patient Spoke with Primary Nurse KAISER Olivarez regarding documentation and care of patient. Stroke Core Measures are being met, documentation of Q 4hr Neuro Checks and VS are done well . Reviewed the patient's NIHSS assessment and scoring HALEY Gresham RN Stroke Center Coordinator, [facility] 07/11/2024 @ 1010 Pt in Cardiac Poker Machine Attendant recovery Awake, alert, and oriented x4 Answers all questions appropriately Follows commands Speech remains with mild dysarthria Rt facial droop present, tongue deviates to the Rt No drooling noted @ present Patient states Rt side of lips numb, denies facial numbness Able to move RLE slightly, although unable to raise off bed Complains of Rt Knee pain with movement Unable to evaluate RUE due to TR band compression site Rt fingers pink, warm Rt radial pulse +/Strong Able to move Lt side extremities without difficulty Denies sensation deficits to extremities Denies headache or blurry vision @ this time VS Stable Will check on patient post-procedure recovery upon return to [facility] Updates provided to patient's Primary Nurse Trisha SAAB, [facility] HALEY Gresham RN Stroke Center Coordinator, [facility] 07-08-2024 Plan of care note The patient's goals for the shift include The clinical goals for the shift include remain safe, increase right side function. No change in function. Pt remains is good spoirits [facility] 07-08-2024 Note Formatting of this n ote might be different from the original. Patient was seen admitted overnight. Reviewed chart and agree with assessment plan [facility] Work Phone: 07-08-2024 Note Formatting of this n ote might be different from the original. Patient was seen admitted overnight. Reviewed chart and agree with assessment plan [facility] Work Phone: 07-08-2024 Plan of care note The clinical goals for the shift include Pt will have NIH score less than 2 by shift change and no signs of bleeding throughout the shift NIH score has maintained a score of 3 during inpatient stay. No signs of bleeding observed or reported by Pt. No reports of pain. Pt resting comfortably in bed. [facility] Work Phone: 07-08-2024 History and physical note History Of Present Illness Cisco Saini is a 68 y.o. male presenting with right-sided weakness. He presented to the emergency room with a little bit of a myriad of complaints. He states that he was at work today and around noon he started feeling poorly but finished his workday went home and relaxed for little bit still felt pretty poor and came to [place] to do some jobs and then went home and then was eating and after he finished eating and was getting ready to eat ice cream his right side quit working he was not able to eat the ice cream he was also not able to walk. When he did his errands here in [place] he was not walking very well and was asked a couple of times if he was okay but he stated that he just felt off and so kept going Before this he was feeling pretty normal Since arrival here in the emergency room his weakness has abated and he is pretty much feeling normal although he states he has not tried to walk yet so not sure how that would feel He really has no past medical history he does not take meds on a chronic basis He lives at home independently. He quit smoking back in 1998 Past Medical History He has no past medical history on file. Surgical History He has no past surgical history on file. Social History He has no history on file for tobacco use, alcohol use, and drug use. Family History No family history on file. Allergies Patient has no known allergies. Review of Systems A full 10 point review of systems was obtained is negative except HPI as above Physical Exam Constitutional: Appearance: Normal appearance. He is obese. HENT: Head: Normocephalic and atraumatic. Comments: Face appears just a little bit asymmetric with deeper folds on the left side than the right. He feels like his face looks normal to him Right Ear: External ear normal. Left Ear: External ear normal. Nose: Nose normal. Mouth/Throat: Mouth: Mucous membranes are moist. Pharynx: Oropharynx is clear. Eyes: Extraocular Movements: Extraocular movements intact. Conjunctiva/sclera: Conjunctivae normal. Pupils: Pupils are equal, round, and reactive to light. Cardiovascular: Rate and Rhythm: Normal rate and regular rhythm. Pulmonary: Effort: Pulmonary effort is normal. Breath sounds: Normal breath sounds. Abdominal: General: Abdomen is flat. Palpations: Abdomen is soft. Skin: General: Skin is warm and dry. Neurological: General: No focal deficit present. Mental Status: He is alert and oriented to person, place, and time. Psychiatric: Mood and Affect: Mood normal. Behavior: Behavior normal. Last Recorded Vitals BP 132/82 (BP Location: Left arm, Patient Position: Lying) Pulse 81 Resp 16 Wt 81.6 kg (180 lb) SpO2 95% Relevant Results Results reviewed Assessment/Plan Assessment & Plan TIA (transient ischemic attack) Elevated troponin TIA Right-sided weakness and dysarthria: Resolved Elevated troponin with negative chest pain and negative EKG findings Plan: At this time his deficits seem to have resolved and he is pretty much feeling back towards his normal self He has absolutely no chest pain He also does not have a family history of any heart disease Overall however he has very vague symptoms and has a very elevated troponin level and so not only do we need to continue to watch his neurological status but I think we need to be very careful about cardiac issues here. I am going to start him on a heparin drip low intensity We will check lipid panel and hemoglobin A1c I will continue aspirin and we will start him on low-dose statin for now We will continue to watch neurologic function closely I will order an MRI We will also get an echo I will also consult cardiology. With a very elevated troponin and no major insult with his very vague symptoms likely need to rule out an ischemic event. We will use Lovenox for DVT prophylaxis We will continue to monitor very closely Ghanshyam Kearns DO [facility] Work Phone: 07-07-2024 Nurse Note Patient is a non smoker. He previously smoked but quit in 1998 [facility] 07-07-2024 Emergency department Note HPI No chief complaint on file. Patient presents with dysarthric speech and a mild headache that he stated started approximately 10 hours ago. I reassessed the patient and his speech had markedly improved. Patient is not complaining of any weakness at present. Patient denies a headache. Noncontrast brain CT is negative. I indicated to the patient I would do an angiogram. Patient states he quit smoking in 1998. Denies any head trauma or other risk factors. Patient was given an aspirin while here. I did speak to the neurologist on-call for the stroke team and went over the case with him. He felt the patient could be admitted here and worked up. I did explain all of this to the family. I have reassessed this patient several times and he has never had any chest pain associated with his presenting complaint or time in the ED. History provided by: Patient Patient History No past medical history on file. No past surgical history on file. No family history on file. Social History Tobacco Use Smoking status: Not on file Smokeless tobacco: Not on file Substance Use Topics Alcohol use: Not on file Drug use: Not on file Physical Exam ED Triage Vitals Temp Pulse Resp BP -- -- -- -- SpO2 Temp src Heart Rate Source Patient Position -- -- -- -- BP Location FiO2 (%) -- -- Physical Exam Vitals and nursing note reviewed. Constitutional: General: He is not in acute distress. Appearance: He is well-developed. HENT: Head: Normocephalic and atraumatic. Eyes: Conjunctiva/sclera: Conjunctivae normal. Cardiovascular: Rate and Rhythm: Normal rate and regular rhythm. Heart sounds: No murmur heard. Pulmonary: Effort: Pulmonary effort is normal. No respiratory distress. Breath sounds: Normal breath sounds. Abdominal: Palpations: Abdomen is soft. Tenderness: There is no abdominal tenderness. Musculoskeletal: General: No swelling. Cervical back: Neck supple. Skin: General: Skin is warm and dry. Capillary Refill: Capillary refill takes less than 2 seconds. Neurological: Mental Status: He is alert and oriented to person, place, and time. Mental status is at baseline. Comments: Some very minimal dysarthric speech with questionable facial paresthesias on the right. The symptoms have improved while here in the department. Psychiatric: Mood and Affect: Mood normal. Labs Reviewed TROPONIN I, HIGH SENSITIVITY - Abnormal Result Value Troponin I, High Sensitivity 646 (*) Narrative: Less than 99th percentile of normal range cutoff- Female and children under 18 years old <14 ng/L; Male <21 ng/L: Negative Repeat testing should be performed if clinically indicated. Female and children under 18 years old 14-50 ng/L; Male 21-50 ng/L: Consistent with possible cardiac damage and possible increased clinical risk. Serial measurements may help to assess extent of myocardial damage. >50 ng/L: Consistent with cardiac damage, increased clinical risk and myocardial infarction. Serial measurements may help assess extent of myocardial damage. NOTE: Children less than 1 year old may have higher baseline troponin levels and results should be interpreted in conjunction with the overall clinical context. NOTE: Troponin I testing is performed using a different testing methodology at [facility] than at other [facility]. Direct result comparisons should only be made within the same method. TROPONIN I, HIGH SENSITIVITY - Abnormal Troponin I, High Sensitivity 546 (*) Narrative: Less than 99th percentile of normal range cutoff- Female and children under 18 years old <14 ng/L; Male <21 ng/L: Negative Repeat testing should be performed if clinically indicated. Female and children under 18 years old 14-50 ng/L; Male 21-50 ng/L: Consistent with possible cardiac damage and possible increased clinical risk. Serial measurements may help to assess extent of myocardial damage. >50 ng/L: Consistent with cardiac damage, increased clinical risk and myocardial infarction. Serial measurements may help assess extent of myocardial damage. NOTE: Children less than 1 year old may have higher baseline troponin levels and results should be interpreted in conjunction with the overall clinical context. NOTE: Troponin I testing is performed using a different testing methodology at [facility] than at other [facility]. Direct result comparisons should only be made within the same method. COMPREHENSIVE METABOLIC PANEL - Normal Glucose 89 Sodium 139 Potassium 3.8 Chloride 106 Bicarbonate 24 Anion Gap 13 Urea Nitrogen 16 Creatinine 1.11 eGFR 72 Calcium 9.1 Albumin 4.3 Alkaline Phosphatase 85 Total Protein 7.0 AST 26 Bilirubin, Total 0.5 ALT 27 PROTIME-INR - Normal Protime 11.2 INR 1.0 APTT - Normal aPTT 29 Narrative: The APTT is no longer used for monitoring Unfractionated Heparin Therapy. For monitoring Heparin Therapy, use the Heparin Assay. D-DIMER, NON VTE - Normal D-Dimer Non VTE, Quant (ng/mL FEU) 335 Narrative: The D-Dimer assay is reported in ng/mL Fibrinogen Equivalent Units (FEU). The results of this assay should NOT be used for the exclusion of Deep Vein Thrombosis and/or Pulmonary Embolism. POCT GLUCOSE - Normal POCT Glucose 77 CBC WITH AUTO DIFFERENTIAL WBC 6.5 nRBC 0.0 RBC 4.63 Hemoglobin 14.5 Hematocrit 43.3 MCV 94 MCH 31.3 MCHC 33.5 RDW 13.1 Platelets 223 Neutrophils % 54.2 Immature Granulocytes %, Automated 0.3 Lymphocytes % 27.4 Monocytes % 11.8 Eosinophils % 5.5 Basophils % 0.8 Neutrophils Absolute 3.55 Immature Granulocytes Absolute, Automated 0.02 Lymphocytes Absolute 1.79 Monocytes Absolute 0.77 Eosinophils Absolute 0.36 Basophils Absolute 0.[address] angio head and neck w and wo IV contrast Final Result No evidence for significant stenosis of the cervical vessels. No evidence for significant stenosis or large branch vessel cutoffs of the intracranial vessels. MACRO: None Signed by: Romaine Evans 07/08/2024 1:24 AM Dictation workstation: [id number] CT brain attack head wo IV contrast Final Result No evidence of acute cortical infarct or intracranial hemorrhage. Brain parenchymal volume loss and chronic ischemic changes. MACRO: Romaine Evans discussed the significance and urgency of this critical finding by epic secure chat with VIRGINIA HERNANDEZ on 07/07/2024 at 10:48 pm. (-RCF-) Findings: See findings. Signed by: Romaine Evans 07/07/2024 10:49 PM Dictation workstation: [id number] ED Course & MDM ED Course as of 07/08/24212 Fri Jul 07, 2024 2232 Twelve-lead EKG interpreted by myself at 2230 1 normal sinus rhythm at 86 2 normal axis 3 no ectopy [MS] [facility] Jul 08, 2024 0155 Twelve-lead EKG interpreted by myself at 2230 1 normal sinus rhythm at 86 2 normal axis 3 no ectopy [MS] ED Course User Index [MS] Virginia Hernandez DO Diagnoses as of 07/08/24212 TIA (transient ischemic attack) Elevated troponin level No data recorded Medical Decision Making Procedure Procedures Virginia Hernandez DO 07/08/24212 documented in this encounter [facility] Work Phone: 07-07-2024 Physician Emergency department Note HPI No chief complaint on file. Patient presents with dysarthric speech and a mild headache that he stated started approximately 10 hours ago. I reassessed the patient and his speech had markedly improved. Patient is not complaining of any weakness at present. Patient denies a headache. Noncontrast brain CT is negative. I indicated to the patient I would do an angiogram. Patient states he quit smoking in 1998. Denies any head trauma or other risk factors. Patient was given an aspirin while here. I did speak to the neurologist on-call for the stroke team and went over the case with him. He felt the patient could be admitted here and worked up. I did explain all of this to the family. I have reassessed this patient several times and he has never had any chest pain associated with his presenting complaint or time in the ED. History provided by: Patient Patient History No past medical history on file. No past surgical history on file. No family history on file. Social History Tobacco Use Smoking status: Not on file Smokeless tobacco: Not on file Substance Use Topics Alcohol use: Not on file Drug use: Not on file Physical Exam ED Triage Vitals Temp Pulse Resp BP -- -- -- -- SpO2 Temp src Heart Rate Source Patient Position -- -- -- -- BP Location FiO2 (%) -- -- Physical Exam Vitals and nursing note reviewed. Constitutional: General: He is not in acute distress. Appearance: He is well-developed. HENT: Head: Normocephalic and atraumatic. Eyes: Conjunctiva/sclera: Conjunctivae normal. Cardiovascular: Rate and Rhythm: Normal rate and regular rhythm. Heart sounds: No murmur heard. Pulmonary: Effort: Pulmonary effort is normal. No respiratory distress. Breath sounds: Normal breath sounds. Abdominal: Palpations: Abdomen is soft. Tenderness: There is no abdominal tenderness. Musculoskeletal: General: No swelling. Cervical back: Neck supple. Skin: General: Skin is warm and dry. Capillary Refill: Capillary refill takes less than 2 seconds. Neurological: Mental Status: He is alert and oriented to person, place, and time. Mental status is at baseline. Comments: Some very minimal dysarthric speech with questionable facial paresthesias on the right. The symptoms have improved while here in the department. Psychiatric: Mood and Affect: Mood normal. Labs Reviewed TROPONIN I, HIGH SENSITIVITY - Abnormal Result Value Troponin I, High Sensitivity 646 (*) Narrative: Less than 99th percentile of normal range cutoff- Female and children under 18 years old <14 ng/L; Male <21 ng/L: Negative Repeat testing should be performed if clinically indicated. Female and children under 18 years old 14-50 ng/L; Male 21-50 ng/L: Consistent with possible cardiac damage and possible increased clinical risk. Serial measurements may help to assess extent of myocardial damage. >50 ng/L: Consistent with cardiac damage, increased clinical risk and myocardial infarction. Serial measurements may help assess extent of myocardial damage. NOTE: Children less than 1 year old may have higher baseline troponin levels and results should be interpreted in conjunction with the overall clinical context. NOTE: Troponin I testing is performed using a different testing methodology at [facility] than at other [facility]. Direct result comparisons should only be made within the same method. TROPONIN I, HIGH SENSITIVITY - Abnormal Troponin I, High Sensitivity 546 (*) Narrative: Less than 99th percentile of normal range cutoff- Female and children under 18 years old <14 ng/L; Male <21 ng/L: Negative Repeat testing should be performed if clinically indicated. Female and children under 18 years old 14-50 ng/L; Male 21-50 ng/L: Consistent with possible cardiac damage and possible increased clinical risk. Serial measurements may help to assess extent of myocardial damage. >50 ng/L: Consistent with cardiac damage, increased clinical risk and myocardial infarction. Serial measurements may help assess extent of myocardial damage. NOTE: Children less than 1 year old may have higher baseline troponin levels and results should be interpreted in conjunction with the overall clinical context. NOTE: Troponin I testing is performed using a different testing methodology at [facility] than at other [facility]. Direct result comparisons should only be made within the same method. COMPREHENSIVE METABOLIC PANEL - Normal Glucose 89 Sodium 139 Potassium 3.8 Chloride 106 Bicarbonate 24 Anion Gap 13 Urea Nitrogen 16 Creatinine 1.11 eGFR 72 Calcium 9.1 Albumin 4.3 Alkaline Phosphatase 85 Total Protein 7.0 AST 26 Bilirubin, Total 0.5 ALT 27 PROTIME-INR - Normal Protime 11.2 INR 1.0 APTT - Normal aPTT 29 Narrative: The APTT is no longer used for monitoring Unfractionated Heparin Therapy. For monitoring Heparin Therapy, use the Heparin Assay. D-DIMER, NON VTE - Normal D-Dimer Non VTE, Quant (ng/mL FEU) 335 Narrative: The D-Dimer assay is reported in ng/mL Fibrinogen Equivalent Units (FEU). The results of this assay should NOT be used for the exclusion of Deep Vein Thrombosis and/or Pulmonary Embolism. POCT GLUCOSE - Normal POCT Glucose 77 CBC WITH AUTO DIFFERENTIAL WBC 6.5 nRBC 0.0 RBC 4.63 Hemoglobin 14.5 Hematocrit 43.3 MCV 94 MCH 31.3 MCHC 33.5 RDW 13.1 Platelets 223 Neutrophils % 54.2 Immature Granulocytes %, Automated 0.3 Lymphocytes % 27.4 Monocytes % 11.8 Eosinophils % 5.5 Basophils % 0.8 Neutrophils Absolute 3.55 Immature Granulocytes Absolute, Automated 0.02 Lymphocytes Absolute 1.79 Monocytes Absolute 0.77 Eosinophils Absolute 0.36 Basophils Absolute 0.[address] angio head and neck w and wo IV contrast Final Result No evidence for significant stenosis of the cervical vessels. No evidence for significant stenosis or large branch vessel cutoffs of the intracranial vessels. MACRO: None Signed by: Romaine Eavns 07/08/2024 1:24 AM Dictation workstation: [id number] CT brain attack head wo IV contrast Final Result No evidence of acute cortical infarct or intracranial hemorrhage. Brain parenchymal volume loss and chronic ischemic changes. MACRO: Romaine Evans discussed the significance and urgency of this critical finding by epic secure chat with VIRGINIA HERNANDEZ on 07/07/2024 at 10:48 pm. (-RCF-) Findings: See findings. Signed by: Romaine Evans 07/07/2024 10:49 PM Dictation workstation: [id number] ED Course & MDM ED Course as of 07/08/24212 Fri Jul 07, 2024 2232 Twelve-lead EKG interpreted by myself at 2230 1 normal sinus rhythm at 86 2 normal axis 3 no ectopy [MS] [facility] Jul 08, 2024 0155 Twelve-lead EKG interpreted by myself at 2230 1 normal sinus rhythm at 86 2 normal axis 3 no ectopy [MS] ED Course User Index [MS] Virginia Hernandez DO Diagnoses as of 07/08/24212 TIA (transient ischemic attack) Elevated troponin level No data recorded Medical Decision Making Procedure Procedures Virginia Hernandez DO 07/08/24212 [facility] Work Phone: Evaluation note Diagnosis History of stroke with residual deficit- Primary documented in this encounter [facility] Work Phone: Evaluation note* Diagnosis Coronary artery disease involving [place] coronary artery of [place] heart, unspecified whether angina present- Primary Chest pain, unspecified type Cerebrovascular accident (CVA), unspecified mechanism (Multi) Coronary artery disease involving [place] coronary artery of [place] heart- Primary Coronary artery disease involving [place] coronary artery of [place] heart, unspecified whether angina present documented in this encounter [facility] Work Phone: Evaluation note* Diagnosis Coronary artery disease involving [place] coronary artery of [place] heart- Primary Coronary artery disease involving [place] coronary artery of [place] heart without angina pectoris- Primary History of stroke with residual deficit Coronary artery disease involving [place] coronary artery of [place] heart, unspecified whether angina present documented in this encounter [facility] Work Phone: [phone] note* Diagnosis Coronary artery disease involving [place] coronary artery of [place] heart- Primary Coronary artery disease involving [place] coronary artery of [place] heart, unspecified whether angina present Encounter for preprocedural cardiovascular examination Coronary artery disease involving [place] coronary artery of [place] heart, unspecified whether angina present documented in this encounter [facility] Work Phone: [phone] note* Diagnosis Coronary artery disease involving [place] coronary artery of [place] heart- Primary Coronary artery disease involving [place] coronary artery of [place] heart, unspecified whether angina present Coronary artery disease involving [place] coronary artery of [place] heart, unspecified whether angina present documented in this encounter [facility] Work Phone: [phone] note* Diagnosis Coronary artery disease involving [place] coronary artery of [place] heart- Primary Coronary artery disease involving [place] coronary artery of [place] heart, unspecified whether angina present Coronary artery disease involving [place] coronary artery of [place] heart, unspecified whether angina present documented in this encounter [facility] Work Phone: Evaluation note* Diagnosis Coronary artery disease involving [place] coronary artery of [place] heart- Primary Coronary artery disease involving [place] coronary artery of [place] heart without angina pectoris History of stroke with residual deficit Encounter for other preprocedural examination Other specified symptoms and signs involving the circulatory and respiratory systems Coronary artery disease involving [place] coronary artery of [place] heart, unspecified whether angina present documented in this encounter [facility] Work Phone: [phone] note* Diagnosis Coronary artery disease involving [place] coronary artery of [place] heart, unspecified whether angina present Abnormal findings on diagnostic imaging of heart and coronary circulation Atherosclerotic heart disease of [place] coronary artery with unspecified angina pectoris Non-ST elevation (NSTEMI) myocardial infarction (Multi) S/P CABG (coronary artery bypass graft) Postsurgical aortocoronary bypass status Coronary artery disease involving [place] coronary artery of [place] heart, unspecified whether angina present Non-ST elevation myocardial infarction (NSTEMI) (Multi) Acute myocardial infarction, subendocardial infarction, episode of care unspecified Murmur Undiagnosed cardiac murmurs Congenital heart disease Unspecified congenital anomaly of heart Alcoholic liver disease Unspecified alcoholic liver damage Elevated liver function tests Other abnormal blood chemistry S/P CABG x 3 Postsurgical aortocoronary bypass status documented in this encounter [facility] Work Phone: Evaluation note* Diagnosis Primary hypertension- Primary Unspecified essential hypertension Coronary artery disease involving [place] coronary artery of [place] heart, unspecified whether angina present Pure hypercholesterolemia S/P CABG x 3 Postsurgical aortocoronary bypass status documented in this encounter [facility] Work Phone: [phone] note* Diagnosis TIA (transient ischemic attack)- Primary Unspecified transient cerebral ischemia TIA (transient ischemic attack) Unspecified transient cerebral ischemia Elevated troponin level Other abnormal blood chemistry Non-ST elevation (NSTEMI) myocardial infarction (Multi) Dysphagia due to recent cerebrovascular accident (CVA) [I69.391] 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] CVA (cerebrovascular accident due to intracerebral hemorrhage) (Multi) Intracerebral hemorrhage Constipation, unspecified constipation type Upper respiratory tract infection, unspecified type Elevated troponin Other abnormal blood chemistry Elevated troponin level Other abnormal blood chemistry Elevated troponin level Other abnormal blood chemistry documented in this encounter [facility] Work Phone: Evaluation note* Diagnosis Coronary artery disease involving [place] coronary artery of [place] heart, unspecified whether angina present documented in this encounter [facility] Work Phone: Evaluation note* Diagnosis Coronary artery disease involving [place] coronary artery of [place] heart, unspecified whether angina present- Primary S/P CABG (coronary artery bypass graft) Postsurgical aortocoronary bypass status documented in this encounter [facility] Work Phone: Evaluation note* Diagnosis Routine general medical examination at a health care facility- Primary S/P CABG (coronary artery bypass graft) Postsurgical aortocoronary bypass status Anemia, unspecified type Cerebrovascular accident (CVA), unspecified mechanism (Multi) documented in this encounter [facility] Work Phone: Evaluation note* Diagnosis Cerebrovascular accident (CVA), unspecified mechanism (Multi)- Primary documented in this encounter [facility] Work Phone: Evaluation note* Diagnosis Primary hypertension- Primary Unspecified essential hypertension S/P CABG (coronary artery bypass graft) Postsurgical aortocoronary bypass status Depression, unspecified depression type documented in this encounter [facility] Work Phone: Hospital Discharge instructions* Attachments The following attachments cannot be sent through Care Everywhere. * [facility] OVERVIEW [facility]* Attachments The following attachments cannot be sent through Care Everywhere. * STR[facility] OVERVIEW [facility]OUT [facility] Discharge instructions* Attachments The following attachments cannot be sent through Care Everywhere. * STROKE OVERVIEW HANDOUT [facility]charge instructions* Attachments The following attachments cannot be sent through Care Everywhere. * STROKE OVERVIEW HANDOUT [facility] Reason for visit Narrative* Imaging (Routine) - Authorized Specialty Diagnoses / Procedures Referred By Demond t Referred To Contact Cardiology Diagnoses Coronary artery disease involving [place] coronary artery of [place] heart, unspecified whether angina present Procedures Vascular US lower extremity [place] [address] [address] [facility] Department [place] [address] Phone: tel: fax: Referral ID Status Reason Start Date Expiration Date Visits Requested Visits Authorized [id number] Authorized Perform Procedure 08/30/2024 08/30/2025 1 1 [facility] Work Phone: Reason for visit Narrative* Imaging (Routine) - Authorized Specialty Diagnoses / Procedures Referred By Contac t Referred To Contact Radiology Diagnoses Coronary artery disease involving [place] coronary artery of [place] heart, unspecified whether angina present Procedures CT chest abdomen pelvis [place] [address] [facility] [place] [address] Phone: tel: fax: Referral ID Status Reason Start Date Expiration Date Visits Requested Visits Authorized [id number] Authorized Perform Procedure 08/30/2024 08/30/2025 1 1 [facility] Work Phone: Rejpaz for visit Narrative* Imaging (Routine) - Authorized Specialty Diagnoses / Procedures Referred By Demond t Referred To Contact Radiology Diagnoses Coronary artery disease involving [place] coronary artery of [place] heart, unspecified whether angina present Procedures XR chest 2 [place] [address] [facility] [place] [address] Phone: tel: fax: Referral ID Status Reason Start Date Expiration Date Visits Requested Visits Authorized [id number] Authorized Perform Procedure 08/30/2024 08/30/2025 1 1 [facility] Work Phone: reason for visit Narrative* Imaging (Routine) - Authorized Specialty Diagnoses / Procedures Referred By Contac t Referred To Contact Cardiology Diagnoses Coronary artery disease involving [place] coronary artery of [place] heart without angina pectoris Procedures NIKKI without exercise Laura Erickson, OVERNIGHT CASHIER-VOCATIONAL REHABILITATION ADMINISTRATOR [address] [facility] [id number] Phone: tel: fax: Referral ID Status Reason Start Date Expiration Date Visits Requested Visits Authorized [id number] Authorized Perform Procedure 09/11/2025 1 1 [facility] Work Phone: reason for visit Narrative* Imaging (Routine) - Authorized Specialty Diagnoses / Procedures Referred By Ruthannac t Referred To Contact Cardiology Diagnoses Coronary artery disease involving [place] coronary artery of [place] heart without angina pectoris History of stroke with residual deficit Procedures Vascular US carotid artery duplex bilateral Laura Erickson, OVERNIGHT CASHIER-VOCATIONAL REHABILITATION ADMINISTRATOR [address] [facility] [place] [address] Phone: tel: fax: Referral ID Status Reason Start Date Expiration Date Visits Requested Visits Authorized [id number] Authorized Perform Procedure 4 09/11/2025 1 1 [facility] Work Phone: Reason for visit Narrative* Auth/Cert Specialty Diagnoses / Procedures Referred By Demond cordova Referred To Contact Diagnoses Coronary artery disease involving [place] coronary artery of [place] heart, unspecified whether angina present Coronary artery disease involving [place] coronary artery of [place] heart, unspecified whether angina present [I25.10] Procedures [place] CABG W/ARTERIAL GRAFT THREE ARTERIAL GRAFTS CABG x 3; HURT[place] [address] [facility] [place] [address] Phone: tel: fax: [place] [address] [place] [address] fax: Referral ID Status Reason Start Date Expiration Date Visits Re quested Visits Authorized [id number] 1 1 [facility] Work Phone: Reason for visit Narrative* Imaging (Routine) - Authorized Specialty Diagnoses / Procedures Referred By Demond cordova Referred To Contact Radiology Diagnoses Coronary artery disease involving [place] coronary artery of [place] heart, unspecified whether angina present Procedures XR chest 2 [place] [address] [facility] [place] [address] Phone: tel: fax: Referral ID Status Reason Start Date Expiration Date Visits Requested Visits Authorized [id number] Authorized Perform Procedure 4 11/07/2025 1 1 [facility] Work Phone: Summary Purpose Family History No Family History Records FoundNo Family History Records FoundNo Family History Records FoundNo Family History Records FoundNo Family History Records FoundNo Family History Records FoundNo Family History Records FoundNo Family History Records FoundNo Family History Records Found Advance Directives No Advanced Directives Records Found Date Activated Date Inactivated Comments 07/08/2024 3:39 AM Question Answer Comments Plan of Care: Code Status Discussion Completed Decision Maker: Patient Date Activated Date Inactivated Comments 07/08/2024 3:39 AM Question Answer Comments Plan of Care: Code Status Discussion Completed Decision Maker: Patient Reason for Referral Status Reason Specialty Diagnoses / Procedures Referred By Contact Referred To Contact Pending Review Procedures TSH Darwin Tony MD [address] [place] [address] Status Reason Specialty Diagnoses / Procedures Referred By Contact Referred To Contact Pending Review Procedures LIPASE Darwin Tony MD [address] [place] [address] Assessments Diagnosis Vertigo- Primary Dizziness and giddiness New onset type 2 diabetes mellitus Additional Source Comments (unrecognized sect ion and content) No Status Records FoundNo Status Records FoundNo Status Records FoundNo Status Records FoundNo Status Records FoundNo Status Records FoundNo Status Records FoundNo Status Records FoundNo Status Records Found INFORMATION SOURCE (unrecogn ized section and content) DATE CREATED AUTHOR 02/24/2019 [facility] DATE CREATED AUTHOR AUTHOR'S ORGANIZ ATION 02/25/2019 [facility] DATE CREATED AUTHOR AUTHOR'S ORGANIZ ATION 08/24/2024 [facility] DATE CREATED AUTHOR AUTHOR'S ORGANIZ ATION 09/30/2024 [facility] DATE CREATED AUTHOR AUTHOR'S ORGANIZ ATION 11/11/2024 [facility] DATE CREATED AUTHOR AUTHOR'S ORGANIZ ATION 12/15/2024 [facility] DATE CREATED AUTHOR AUTHOR'S ORGANIZ ATION 12/25/2024 [facility] DATE CREATED AUTHOR AUTHOR'S ORGANIZ ATION 03/21/2025 [facility] DATE CREATED AUTHOR AUTHOR'S ORGANIZ ATION 05/04/2025 [facility] Reason for Visit (unrecogniz ed section and content) Reason Comments Vomiting onset this am at wor k. pale and diaphoretic, dizziness Reason Comments Transient Ischemic Attack [facility] . Needs clearance for cardiac surgery. Reason Comments New Patient Visit Reason Comments Hospital Follow-up Specialty Diagnoses / Procedures Referred By Contac t Referred To Contact Diagnoses Coronary artery disease involving [place] coronary artery of [place] heart, unspecified whether angina present Procedures ECG 12 lead (Clinic Performed) Emanuel Giraldo MD [address] [facility] [place] [place], [facility] [address] [id number] Phone: tel: fax: Referral ID Status Reason Start Date Expiration Date V isits Requested Visits Authorized [id number] Authorized 10/09/2024 10/09/2025 1 1 Reason Comments Stroke Patient reports R si ded weakness starting at 12p. Reports of lightheaded as well. Difficulty walking , very unsteady gait. Denies vision changes, headache, not on blood thinners Specialty Diagnoses / Procedures Referred By Demond cordova Referred To Contact Diagnoses TIA (transient ischemic attack) Elevated troponin level Procedures No coded services entered Candelario Montana MD [address] [place] [address] [id number] Referral ID Status Reason Start Date Expiration Date Visits Re quested Visits Authorized [id number] 1 1 Reason Comments Post-op Visit Reason Comments Establish Care PT is here today to establish care as a new pt. He has not been in over 5 years. Reason Comments Follow-up Wants to return to w ork s/p TIA, CABG surgery Reason Comments 2 month Pt is here today for 2month FUV. AAA and Colonoscopy is due. Would like to talk about getting back on medication for anxiety and depression and talk about going back to work Care Teams (unrecognized sec tion and content) Phlebotomy Director Relationship Specialty Start Date End Date Debbie Barba MD [address] [facility] [address] [place] [address] PCP - General Family Medicine 07/07/24 Phlebotomy Director Relationship Specialty Start Date End Date Debbie Barba MD [address] [facility] [address] [place] [address] PCP - General Family Medicine 07/07/24 Phlebotomy Director Relationship Specialty Start Date End Date Debbie Barba MD [address] [facility] [address] [place] [address] PCP - General Family Medicine 07/07/24 Phlebotomy Director Relationship Specialty Start Date End Date Debbie Barba MD [address] [facility] [address] [place] [address] PCP - General Family Medicine 07/07/24 Phlebotomy Director Relationship Specialty Start Date End Date Debbie Barba MD [address] [facility] [address] [place] [address] PCP - General Family Medicine 07/07/24 Phlebotomy Director Relationship Specialty Start Date End Date Debbie Barba MD [address] [facility] [address] [place] [address] PCP - General Family Medicine 07/07/24 Phlebotomy Director Relationship Specialty Start Date End Date Debbie Barba MD [address] [facility] [address] [place] [address] PCP - General Family Medicine 07/07/24 Phlebotomy Director Relationship Specialty Start Date End Date Debbie Barba MD [address] [facility] [address] [place] [address] PCP - General Family Medicine 07/07/24 Phlebotomy Director Relationship Specialty Start Date End Date Debbie Barba MD [address] [facility] [address] [place] [address] PCP - General Family Medicine 07/07/24 Phlebotomy Director Relationship Specialty Start Date End Date Debbie Barba MD [address] [facility] [address] [place] [address] PCP - General Family Medicine 07/07/24 Phlebotomy Director Relationship Specialty Start Date End Date Debbie Barba MD [address] [facility] [address] [place] [address] PCP - General Family Medicine 07/07/24 Phlebotomy Director Relationship Specialty Start Date End Date Debbie Barba MD [address] [facility] [address] [place] [address] PCP - General Family Medicine 07/07/24 Phlebotomy Director Relationship Specialty Start Date End Date Debbie Barba MD [address] [facility] [address] [place], [facility] PCP - General Family Medicine 07/07/24 Phlebotomy Director Relationship Specialty Start Date End Date Debbie Barba MD [address] [facility] [address] [place] [address] PCP - General Family Medicine 07/07/24 Phlebotomy Director Relationship Specialty Start Date End Date Lulu Carson, OVERNIGHT CASHIER-VOCATIONAL REHABILITATION ADMINISTRATOR [address] [facility] [address] [place] [address] PCP - General Family Medicine 12/21/24 Phlebotomy Director Relationship Specialty Start Date End Date Lulu Carson APRN-HERI [address] [facility] [address] [place] [address] PCP - General Family Medicine 12/21/24 Phlebotomy Director Relationship Specialty Start Date End Date Lulu Carson, MAHIN-VOCATIONAL REHABILITATION ADMINISTRATOR [address] [facility] [address] [place] [address] PCP - General Family Medicine 12/21/24 Scheduled Active and Recently Administ ered Medications (unrecognized section and content) Medication Order 10/02/2024 10/03/2024 10/04/2024 acetaminophen (Tylenol) tablet 650 mg 650 mg, oral, Every 6 hours, First dose on Wed09/27/24 at 1500, If ordered PRN for pain, nurse is permitted to administer this medication for higher pain scores based on patient preference? Yes 0307 (Given - Provider: Danilo Hendrickson RN)0831 (Given - Provider: Ana Laura Haney RN)1437 (Given - Provider: Ana Laura Haney RN)2214 (Not Given - Provider: Trudi Falk RN - Reason: Patient/family refused) 0247 (Not Given - Provider: Trudi Falk RN - Reason: Patient/family refused)0837 (Given - Provider: Jessica Story RN)1445 (Not Given - Provider: Jessica Story RN - Reason: Patient/family refused)2107 (Not Given - Provider: Sarahi uJan RN - Reason: Patient/family refused) 0205 (Not Given - Provider: Sarahi Juan RN - Reason: Patient/family refused)0916 (Not Given - Provider: Irma Shrestha RN - Reason: Patient/family refused)1500 (Due)2100 (Due) aspirin chewable tablet 81 mg (CANCELED) 81 mg, oral, Daily, First dose on Wed09/27/24 at 1500, Hold for platelets less than 50,000, Indications: myocardial infarction prevention 0831 (Given - Provider: Ana Laura Haney RN) aspirin EC tablet 81 mg 81 mg, oral, Daily, First dose on Wed10/03/24 at 0900, Do not crush, chew, or split. 0837 (Given - Provider: Jessica Story RN) 0915 (Given - Provider: Irma Shrestha RN) atorvastatin (Lipitor) tablet 80 mg 80 mg, oral, Nightly, First dose on Wed09/28/24 at 2100 2107 (Given - Provider: Trudi Falk, [facility]) 2058 (Given - Provider: Sarahi Juan, RN) 2099 (Due) clopidogrel (Plavix) tablet 75 mg 75 mg, oral, Daily, First dose on Wed10/01/24 at 0900 0832 (Given - Provider: Ana Laura Haney RN) 0837 (Given - Provider: Jessica Story RN) 0915 (Given - Provider: Irma Shrestha RN) docusate sodium (Colace) capsule 100 mg 100 mg, oral, 2 times daily, First dose on Wed10/04/24 at 0900 0915 (Not Given - Provider: Irma Shrestha RN - Reason: Patient/family refused)2099 (Due) furosemide (Lasix) tablet 20 mg 20 mg, oral, Daily, First dose on Wed10/02/24 at 1615 1619 (Given - Provider: Ana Laura Haney RN) 0837 (Given - Provider: Jessica Story RN) 0916 (Given - Provider: Irma Shrestha RN) gabapentin (Neurontin) capsule 200 mg 200 mg, oral, 2 times daily, First dose on Wed09/27/24 at 2100, Capsules may be opened and sprinkled on food (eg, applesauce, orange juice, pudding 0831 (Given - Provider: Ana Laura Haney RN)2106 (Given - Provider: Trudi Falk, [facility]) 0836 (Given - Provider: Jessica Story, [facility])2058 (Given - Provider: Sarahi Juan, [facility]) 09 (Given - Provider: Irma Shrestha RN)2100 (Due) heparin (porcine) injection 5,000 Units 5,000 Units, subcutaneous, Every 8 hours, First dose on Sisi 09/28/24 at 1000 0308 (Given - Provider: Danilo Hendrickson RN)0945 (Given - Provider: Ana Laura Haney RN)1753 (Given - Provider: Ana Laura Haney RN) 0247 (Given - Provider: Trudi Falk, RN)1118 (Given - Provider: Jessica Story RN)1726 (Given - Provider: Darshana Ross, [facility]) 0203 (Given - Provider: Sarahi Juan RN)0930 (Given - Provider: Irma Shrestha RN)1800 (Due) iron polysaccharides (Nu-Iron,Niferex) capsule 150 mg 150 mg, oral, Daily, First dose on 10/01/24 at 1300 0831 (Given - Provider: Ana Laura Haney RN) 0837 (Given - Provider: Jessica Story RN) 0915 (Given - Provider: Irma Shrestha RN) metoprolol succinate XL (Toprol-XL) 24 hr tablet 50 mg 50 mg, oral, Daily, First dose on Wed10/02/24 at 0900, Do not crush or chew. 0832 (Given - Provider: Ana Laura Haney RN) 0836 (Given - Provider: Jessica Story RN) 0916 (Given - Provider: Irma Shrestha RN) multivitamin with minerals 1 tablet 1 tablet, oral, Daily, First dose on Wed10/01/24 at 1300 0832 (Given - Provider: Ana Laura Haney RN) 0836 (Given - Provider: Jessica Story RN) 0914 (Given - Provider: Irma Shrestha RN) polyethylene glycol (Glycolax, Miralax) packet 17 g 17 g, oral, 2 times daily, First dose on Wed09/27/24 at 2100, Bowel Regimen - for prevention of constipation. 0838 (Not Given - Provider: Ana Laura Haney RN - Reason: Patient/family refused)2214 (Not Given - Provider: Trudi Falk RN - Reason: Patient/family refused) 0838 (Not Given - Provider: Jessica Story RN - Reason: Patient/family refused)2037 (Not Given - Provider: Sarahi Juan RN - Reason: Patient/family refused) 916 (Not Given - Provider: Irma Shrestha RN - Reason: Patient/family refused)2100 (Due) potassium chloride CR (Klor-Con M20) ER tablet 40 mEq (COMPLETED) 40 mEq, oral, Once, On 10/02/24 at 0915, For 1 dose, Best given with food and plenty of water to minimize gastric irritation. Do not crush or chew. 0945 (Given - Provider: Ana Laura Haney, RN) sertraline (Zoloft) tablet 50 mg 50 mg, oral, Daily, First dose on Wed09/27/24 at 1500 0832 (Given - Provider: Ana Laura Haney RN) 0837 (Given - Provider: Jessica Story RN) 0916 (Given - Provider: Irma Shrestha RN) PRN Medication Order 10/02/2024 10/03/2024 10/04/2024 dextrose 50 % injection 12.5 g 12.5 g, intravenous, Every 15 min PRN, For blood glucose 41 to 70 mg/dL, Starting on Sisi 09/28/24 at 0913, May repeat until blood glucose level reaches 100 mg/dL or greater. Push 2 - 3 mL/minute if patient has secure IV access. dextrose 50 % injection 25 g 25 g, intravenous, Every 15 min PRN, For blood glucose less than or equal to 40 mg/dL, Starting on Sisi 09/28/24 at 0913, May repeat until blood glucose level reaches 100 mg/dL or greater. Push 2 - 3 mL/minute if patient has secure IV access. glucagon (Glucagen) injection 1 mg 1 mg, intramuscular, Every 15 min PRN, blood glucose less than or equal to 40 mg/dL - see comments, For blood glucose less than or equal to 40 mg/dL and no IV access, Starting on Sisi 09/28/24 at 0913, Give until blood glucose is 100 mg/dL or greater. If patient DOES NOT HAVE secure IV access & patient is unconscious, NPO or is unable to eat or drink. glucagon (Glucagen) injection 1 mg 1 mg, intramuscular, Every 15 min PRN, low blood sugar - see comments, For blood glucose less than or equal to 70 mg/dL and no IV access, Starting on Sisi 09/28/24 at 0913, Give until blood glucose is 100 mg/dL or greater. If patient DOES NOT HAVE secure IV access & patient is unconscious, NPO or is unable to eat or drink. ondansetron (Zofran) injection 4 mg(Linked Group 1) 4 mg, intravenous, Every 8 hours PRN, nausea/vomiting, first line, Starting on Wed09/27/24 at 1430, 1st Line. Give IV if patient is unable to take orally. If inadequate response within 60 minutes, proceed to next-line agent for same PRN reason or contact provider if no further options ordered. When administering via IV Push, administer over 3-5 minutes. ondansetron (Zofran) tablet 4 mg(Linked Group 1) 4 mg, oral, Every 8 hours PRN, nausea/vomiting, first line, Starting on Wed09/27/24 at 1430, 1st Line. Use oral route first, if possible. If inadequate response within 60 minutes, proceed to next-line agent for same PRN reason or contact provider if no further options ordered. oxygen (O2) therapy inhalation, Continuous PRN - O2/gases, other, Starting on Sisi 09/28/24 at 1034, Wean as tolerated., Device: Nasal Cannula, Keep O2 Sat Above: 92% Linked Groups Order Group 1: ondansetron (Zofran) tablet 4 mgJump to med 4 mg, oral, Every 8 hours PRN, nausea/vomiting, first line, Starting on Wed09/27/24 at 1430, 1st Line. Use oral route first, if possible. If inadequate response within 60 minutes, proceed to next-line agent for same PRN reason or contact provider if no further options ordered. Or ondansetron (Zofran) injection 4 mgJump to med 4 mg, intravenous, Every 8 hours PRN, nausea/vomiting, first line, Starting on Wed09/27/24 at 1430, 1st Line. Give IV if patient is unable to take orally. If inadequate response within 60 minutes, proceed to next-line agent for same PRN reason or contact provider if no further options ordered. When administering via IV Push, administer over 3-5 minutes. Scheduled Medication Order 07/11/2024 07/12/2024 07/13/2024 aspirin chewable tablet 81 mg 81 mg, oral, Daily, First dose on Wed07/08/24 at 0900 0742 (Given - Provider: Shanice Shen RN)0900 (Override Pull - Provider: Shanice Shen RN) 0854 (Given - Provider: Shanice Shen RN) 1004 (Given - Provider: Yuli Pickett RN - Comment: Pt with speech therapy) atorvastatin (Lipitor) tablet 40 mg 40 mg, oral, Nightly, First dose on Wed07/09/24 at 2100 2130 (Given - Provider: Mayra Yu, [facility]) 2045 (Given - Provider: Manuela Chopra RN) 2100 (Due) clopidogrel (Plavix) tablet 75 mg 75 mg, oral, Daily, First dose (after last modification) on Wed07/11/24 at 0900 0745 (Given - Provider: Shanice Shen RN)0800 [facility] Provider: Shanice Shen RN) 0854 (Given - Provider: Shanice Shen RN) 1004 (Given - Provider: Yuli Pickett RN - Comment: Pt with speech therapy) lisinopril tablet 10 mg 10 mg, oral, Daily, First dose on Wed07/12/24 at 0915, Hold for SBP less than 90 mmHg. 0919 (Given - Provider: Shanice Shen RN) 1004 (Given - Provider: Yuli Pickett RN - Comment: Pt with speech therapy) metoprolol succinate XL (Toprol-XL) 24 hr tablet 25 mg 25 mg, oral, Daily, First dose on Wed07/12/24 at 0915, Hold for HR less than 50 Do not crush or chew. 0919 (Given - Provider: Shanice Shen RN) 1004 (Given - Provider: Yuli Pickett RN - Comment: Pt with speech therapy) perflutren protein A microsphere (Optison) injection 0.5 mL 0.5 mL, intravenous, Once in imaging, Starting on Wed07/08/24 at 0339, For 1 dose polyethylene glycol (Glycolax, Miralax) packet 17 g 17 g, oral, Daily, First dose on Wed07/08/24 at 0900, Bowel Regimen - for prevention of constipation. 0900 (Not Given - Provider: Shanice Shen, [facility] - Reason: Order parameters not met) 0854 (Given - Provider: Shanice Shen RN) 0900 (Not Given - Provider: Yuli Pickett RN - Reason: Patient/family refused) sulfur hexafluoride microsphr (Lumason) injection 24.28 mg 24.28 mg (2 mL), intravenous, Once in imaging, Starting on 07/08/24 at 0339, For 1 dose, Follow administration with 5 mL NaCL 0.9% injection. PRN Medication Order 07/11/2024 07/12/2024 07/13/2024 acetaminophen (Tylenol) oral liquid 650 mg(Linked Group 1) 650 mg, nasogastric tube, Every 4 hours PRN, fever (temp greater than 38.0 C), greater than or equal to 38 C, Starting on 07/08/24 at 0339 acetaminophen (Tylenol) tablet 650 mg(Linked Group 1) 650 mg, oral, Every 4 hours PRN, fever (temp greater than 38.0 C), greater than or equal to 38 C, Starting on 07/08/24 at 0339, If ordered PRN for pain, nurse is permitted to administer this medication for higher pain scores based on patient preference? Yes fentaNYL PF (Sublimaze) injection (CANCELED) As needed, Starting on Wed07/11/24 at 0922, Intraprocedure 0922 (Given - Provider: Anne Hamilton RN - Comment: sedation; pain control) heparin 1,000 unit/mL injection (CANCELED) As needed, Starting on Wed07/11/24 at 0926, Intraprocedure 0926 (Given - Provider: Emanuel Kwong MD - Comment: RADIAL COCKTAIL; 2-PERSON VERIFIED) hydrALAZINE (Apresoline) tablet 25 mg(Linked Group 2) 25 mg, oral, Every 6 hours PRN, systolic blood pressure greater than 220 mm Hg, Starting on Wed07/11/24 at 0952 iodixanol (VISIPaque) 320 mg iodine/mL injection (CANCELED) As needed, Starting on Wed07/11/24 at 0942, Intraprocedure 0942 (Given - Provider: Emanuel Kwong MD - Comment: opacification) lidocaine (Xylocaine) 20 mg/mL (2 %) injection (CANCELED) As needed, Starting on Wed07/11/24 at 0923, Intraprocedure 0923 (Given - Provider: Emanuel Kwong MD - Comment: numbing to RT wrist) midazolam (Versed) injection (CANCELED) As needed, Starting on Wed07/11/24 at 0922, Intraprocedure 0922 (Given - Provider: Anne Hamilton, RN - Comment: sedation; pain control) nitroglycerin in 5 % dextrose 10 mL syringe (CANCELED) As needed, Starting on Wed07/11/24 at 0926, Intraprocedure 0926 (Given - Provider: Emanuel Kwong MD - Comment: RADIAL COCKTAIL) oxygen (O2) therapy inhalation, Continuous PRN - O2/gases, other, titrate to maintain SpO2 at 94% or above, Starting on Wed07/09/24 at 0952, Device: Nasal Cannula, Rate in liters per minute: Other, Custom Value: Please indicate a value for LPM, Keep O2 Sat Above: 94% 0643 ([employer] - Provider: Erin Hodgson, ANDREAS) 0709 ([employer] - Provider: Lashaun Story GRANULATOR MACHINE OPERATOR) 0701 ([employer] - Provider: Mandy Sanchez, PARACHUTE MANUFACTURING SUPERVISOR)1215 ([employer] - Provider: Mandy Sanchez, PARACHUTE MANUFACTURING SUPERVISOR) oxygen (O2) therapy (COMPLETED) Continuous PRN, Starting on Wed07/11/24 at 0925, Intraprocedure 0925 (New Bag - Provider: Anne Hamilton, RN - Comment: PROPHYLACTIC - TRACED BACK TO SOURCE) oxymetazoline (Afrin) 0.05 % nasal spray 2 spray 2 spray, Each Nostril, Every 12 hours PRN, congestion, Starting on Wed07/12/24 at 0746, For 3 days verapamil (Isoptin) injection (CANCELED) As needed, Starting on Wed07/11/24 at 0926, Intraprocedure 0926 (Given - Provider: Emanuel Kwong MD - Comment: RADIAL COCKTAIL) Linked Groups Order Group 1: acetaminophen (Tylenol) tablet 650 mgJump to med 650 mg, oral, Every 4 hours PRN, fever (temp greater than 38.0 C), greater than or equal to 38 C, Starting on 07/08/24 at 0339, If ordered PRN for pain, nurse is permitted to administer this medication for higher pain scores based on patient preference? Yes Or acetaminophen (Tylenol) oral liquid 650 mgJump to med 650 mg, nasogastric tube, Every 4 hours PRN, fever (temp greater than 38.0 C), greater than or equal to 38 C, Starting on 07/08/24 at 0339 Or acetaminophen (Tylenol) suppository 650 mg (CANCELED) 650 mg, rectal, Every 4 hours PRN, fever (temp greater than 38.0 C), greater than or equal to 38 C, Starting on 07/08/24 at 0339, If ordered PRN for pain, nurse is permitted to administer this medication for higher pain scores based on patient preference? Yes Group 2: hydrALAZINE (Apresoline) injection 10 mg () 10 mg, intravenous, Administer over 2 Minutes, Every 20 min PRN, systolic blood pressure greater than 220 mm Hg, Starting on Wed07/09/24 at 0952, For 48 hours, Second line for hypertension. Alternate with labetalol. Notify MD if 3 doses of antihypertensives given within 1 hour. Followed by hydrALAZINE (Apresoline) tablet 25 mgJump to med 25 mg, oral, Every 6 hours PRN, systolic blood pressure greater than 220 mm Hg, Starting on Wed07/11/24 at 0952 FOR RECORDS PERTAINING TO PATIENTS WHO ARE OR HAVE BEEN ENROLLED IN A CHEMICAL DEPENDENCY/SUBSTANCEABUSE PROGRAM, SOME INFORMATION MAY BE OMITTED. This clinical summary was aggregated from multiple sources. Caution should be exercised in using it in the provision of clinical care. This summary normalizes information from multiple sources, and as a consequence, information in this document may materially change the coding, format and clinical context of patient data. In addition, data may be omitted in some cases. CLINICAL DECISIONS SHOULD BE BASED ON THE PRIMARY CLINICAL RECORDS. [facility] [facility]. provides no warranty or guarantee of the accuracy or completeness of information in this document.
[2025-11-06] MEDS: 0.9% Saline Lock 10 ML Syringe IV (21:34)
[2025-11-06] MEDS: MELATONIN 3 MG TABLET PO (23:41)
[2025-11-07] VITALS (15 sets, daily range): BP systolic 112–158; BP diastolic 81–97; PULSE 79–98; RESP 16–18; TEMP 36.5–36.7; O2SAT 90–97; BMI 28.5
[2025-11-07] MEDS: 0.9% Saline Lock 10 ML Syringe IV ×4 (05:42→16:33)
[2025-11-07 05:57] LABS: Hematocrit 43.1 % (40-54); Hemoglobin 14.5 g/dL (13.0-16.5); Mean Corp Hgb Conc 33.6 g/dL (32-36); Mean Corpuscular Volume 92.1 fL (80-94); Mean Platelet Vol. 10.1 fl (6.2-12.0); Platelet Count 237 K/mm3 (150-450); RBC Distribution Width CV 12.4 % (11.6-14.6); RBC Distribution Width SD 42.1 fl (35.1-43.9); Red Blood Count 4.68 M/mm3 (4.6-6.2); White Blood Count 9.0 K/mm3 (4.4-11.0)
[2025-11-07 06:05] LABS: Scan Indicated on CBC? Y/N YES- FLAGS NOTED
[2025-11-07 06:12] LABS: Prothrombin Time (Protime)PT. 13.7 SECONDS (11.7-14.9)
[2025-11-07 06:49] LABS: Anion Gap 13 (5-15); BUN 13 mg/dL (4-19); BUN/Creat Ratio 12.8 RATIO (10-20); Bilirubin, Direct 0.26 mg/dL (0.00-0.30); Calcium,Total 8.9 mg/dL (7.6-11.0); Carbon Dioxide 22.8 mmol/L (21.0-32.0); Chloride 98 mmol/L (98-108); Estimated Creatinine Clearance 69.18 ml/min (50-250); Glucose 113 mg/dL (70-99); Potassium 4.5 mmol/L (3.3-5.1)
[2025-11-07] MEDS: 0.9% Normal Saline (1000mL) 1,000 ML 75 ML IV ×2 (11:32→22:03)
--- NOTE | 2025-11-07 11:47 | CASEMGMT ---
[facility] Assessment: Face to Face with pt for initial transition planning/care coordination assessment. RN DEONNA introduced self and role at [facility], pt voices understanding and consents to assessment. Pt is A&O x4 and answers all questions appropriately at this time. Pt lying in bed in no distress. Care providers, pharmacy, and demographics verified/updated. Admitting Dx: fall with R femoral neck fx Strata Score: 2 PCP:[facility] Special[facility]: Denies Preferred Pharmacy:[facility] Insurance: [place] MCR Prescription Benefit: yes LNOK: Pearl Aguilar, ex ; Ghanshyam Aguilar, son Living Arrangements: Pt lives alone in a two story home with FFSU and 2 steps to etner the home. Pt reports prior to his fall he was indep in ADL/IADLs. Transportation: Pt drives self and denies concerns with transportation. DME:grab bars in shower, cane, hemiwalker HHC/SNF: Pt has had HHC in the past but cannot recall the name of the agency. Pt has been to [facility] Rehab unit and [facility]. 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 Pt would be open to going to [facility] Rehab unit again or TCU potentially. Pt reports he does have residual deficits from his stroke. Pt is aware that therapy will work with him post op and make recommendations and RN DEONNA will follow. Pt states no further concerns/needs. CM to follow. Advised pt to ask CM if any further questions/concerns/needs arise, voices understanding. Pt Goal: TBD Plan: TBD pending OR and post op therapy evals. Bebeto SAAB CM
--- NOTE | 2025-11-07 13:37 | PN.HOSP_ITS ---
Reason for Visit Chief Complaint: Fall with right hip pain Subjective Subjective Reports pain medication and muscle relaxers have finally kicked in and he is slightly more comfortable although still in a lot of pain when he moves, has no other new or acute complaints Objective Data Objective Data Vital Signs: Vital Signs Temp Pulse Resp BP Pulse Ox O2 Del Method O2 Flow Rate 98 F 97 16 126/81 H 95 Nasal Cannula 2 11/07/25 09:16 11/07/25 09:16 11/07/25 09:16 11/07/25 09:16 11/07/25 09:16 11/07/25 09:16 11/07/25 09:16 Oxygen Flow Rate (L/min) 2 Oxygen Delivery Method Nasal Cannula Weight: 80.4 kg Body Mass Index (BMI) 28.5 Intake & Output: Intake and Output for Last 24 Hours 11/05/25 11/06/25 11/07/25 23:59 23:59 23:59 Output Total 700 / 700 Balance -700 / -700 Lab / Micro Data 11/07/25 05:32 11/07/25 05:32 Labs: Laboratory Results - last 24 hr 11/06/25 16:10: WBC 12.8 H, RBC 5.04, Hgb 15.7, Hct 47.0, MCV 93.3, MCH 31.2, MCHC 33.4, RDW Std Deviation 43.2, RDW Coeff of Nicole 12.6, Plt Count 259, MPV 9.7, Immature Gran % (Auto) 0.500, Neut % (Auto) 87.9 H, Lymph % (Auto) 6.2 L, [place] % (Auto) 4.2, Eos % (Auto) 0.9, Baso % (Auto) 0.3, Absolute Neuts (auto) 11.3 H, Absolute Lymphs (auto) 0.79 L, Nucleated RBC % 0, Sodium 135, Potassium 4.7, Chloride 101, Carbon Dioxide 21.3, Anion Gap 13, BUN 11, Creatinine 1.07, Est GFR (MDRD) Non-Af 75, BUN/Creatinine Ratio 10.1, Glucose 119 H, Calcium 9.2 11/07/25 05:32: WBC 9.0, RBC 4.68, Hgb 14.5, Hct 43.1, MCV 92.1, MCH 31.0, MCHC 33.6, RDW Std Deviation 42.1, RDW Coeff of Nicole 12.4, Plt Count 237, MPV 10.1, PT 13.7, INR 1.0, Sodium 134, Potassium 4.5, Chloride 98, Carbon Dioxide 22.8, Anion Gap 13, BUN 13, Creatinine 0.99, Estim Creat Clear Calc 69.18, Est GFR (MDRD) Non-Af 82, BUN/Creatinine Ratio 12.8, Glucose 113 H, Calcium 8.9, Direct Bilirubin 0.26, Blood Type A POSITIVE, Antibody Screen NEGATIVE Radiography Diagnostic Testing: Radiology Impression Brain CT 11/06/25 16:25 IMPRESSION: No acute intracranial process Reading Location: [facility] Chest X-Ray 11/06/25 16:40 IMPRESSION: No Acute Findings. Reading Location: [facility] Hip/Pelvis X-Ray 11/06/25 16:40 IMPRESSION: Acute subcapital right femoral neck fracture. Reading Location: [facility] Cervical Spine CT 11/06/25 19:25 IMPRESSION: 1. No cervical spinal fracture or acute malalignment identified. 2. Additional description as above. Reading Location: [facility] Physical Exam Narrative General: Alert, no apparent distress HEENT: Atraumatic, normocephalic Eyes: Anicteric, normal conjunctiva, extraocular movements grossly intact Neck: Supple Respiratory: Clear to auscultation bilaterally, normal respiratory effort Cardiovascular: Regular rate and rhythm GI: Soft, nontender, nondistended Extremities: No edema Musculoskeletal: Right lower extremity remains externally rotated Neuro: No overt focal neurological deficits Skin: No rashes appreciated Psych: Cooperative Assessment & Plan Assessment/Plan (1) Fracture of femoral neck, right: PLAN: Plan Patient is a 69-year-old male who presented to [facility] ED on 11/06/2025 with right hip pain after a fall at home. # Right femoral fracture secondary to mechanical fall ? Admit under inpatient status to [facility]. Orthopedic surgery consulted. PT/OT/case management consulted. Hip/pelvis x-ray showed an acute subcapital right femoral neck fracture. Preoperative evaluation as below. Plan for surgery tomorrow, n.p.o. at midnight. SCDs for DVT prophylaxis for now. Pain control with scheduled Tylenol, oxycodone as needed and IV morphine as needed. Patient lives at home alone, suspect he will need SNF placement at discharge. -11/07: Patient seen this a.m., resting fairly comfortably after pain medication, Ortho consult, n.p.o. for possible surgical intervention # History of CVA with residual right-sided deficits, history of CAD with CABG, hypertension, hyperlipidemia ? See HPI for further details. In short, patient had CVA with left acute infarction resulting in right-sided hemiparesis in June 2024. He has slowly regained right-sided functioning over the past several months. Had CABG x 3 at [facility] in September 2024 and has done well since then. Holding Plavix and lisinopril for now as above. Okay to continue home statin. -11/07: Home med list reports patient was not taking atorvastatin, given history do think this is important to take if possible, this has been continued. LFTs in the a.m. Plavix on hold pending surgery. Optimal timing of resumption per Ortho but given stroke was about 4 months ago would benefit from early resumption of possible # Anxiety/depression ? Patient reports taking sertraline only as needed for anxiety; states it makes him sleepy so he does not take it often. Educated patient that this medication is a daily medication so either needs to be taken every day or not at all. Will hold sertraline at this time. -11/07: Supportive care. Patient taking sertraline as needed, this was not continued here. If he is concerned about making him tired he could consider taking it nightly if pt agreeable #DVT ppx: SCDs Johanna Morales MD Charges/Coding Visit Charges Inpatient E&M: 79424 Subs Hosp L1
--- NOTE | 2025-11-07 16:30 | HIP_PTH ---
PATIENT: CISCO SAINI LOC: MS3 U#:[id number] AGE/SX: 69/M ROOM: [facility] RE11/06/[address]: Dr. Mary Smyth DO : 1955 BED: 1 DIS: 11/14/2025 SPEC #: [id number] RECD: 11/08/25 08:01 STATUS: KINGA RELobo #: [id number] FELICE: 11/07/25 16:[address]: Benny Titus DEPT: SURGICAL PATHOLOGY RECD BY: Ganesh Gambino ENTERED: 11/08/25 11:10 SP TYPE: TOTAL HIP OTHR DR: DO Dr. Johanna Elder MD Dr. Steven Widmer, MD Darrin M Jones, RECRUITMENT SPECIALIST-C Tissues: A - Hip, NOS Procedures: Decalcification bone/plaque Surgery Specimen Level III Comments: @ Ordering doctor for DEC edited from to @ by ADITYA at 11/12/25 1623 @ Ordering doctor for SUIII edited from to @ by ADITYA at 11/12/25 1623 @ Submitting doctor edited from to @ by ADITYA at 11/12/25 1623 HEADER OPERATION: Hemiarthroplasty, hip, anterior PRE-OP DIAGNOSIS: Fracture of femoral neck, right TISSUE SUBMITTED: A- Right femoral neck fracture MICROSCOPIC DIAGNOSIS A. Bone, femur, right, hemiarthroplasty: MICROSCOPIC DESCRIPTION Slides are reviewed. GROSS DESCRIPTION A. Received in formalin labeled with the patient's name and date of . Designated as right femoral neck fracture is a 5.0 x 4.8 x 3.6 cm slightly irregular, ovoid femoral head with detached, markedly congested and irregular femoral neck, 2.2 cm in length by 4.3 cm in diameter. There is also a 4.0 x 3.6 x 2.4 cm portion of soft tissue containing an undesignated suture. The articular cartilage of the femoral head is brewer with diffuse, erythematous granularity and mild peripheral osteophyte formation. Sectioning reveals the medullary bone with marked congestion near the femoral neck insertion. Stoper sections are submitted in 3 cassettes, following decalcification as follows: A1: Femoral headA2: Femoral neckA3: Soft tissue [place] 11/09/2025 CPT:28947,01845
--- NOTE | 2025-11-07 16:31 | CASEMGMT ---
Social Work- IRVIN received call from pt son Ghanshyam expressing concerns about cognitive function, as well as physical decline since return home from SNF in February. Pt son reports that pt took him off as POA due to messing with stuff in August. Ghanshyam reports that pt thought son put water in diesel gas can in April. Ghanshyam reports that he changed the locks on the barn and will not allow him to get his belongings in April. Ghanshyam requesting workup for dementia because S told him to call IRVIN and request such. SW provided education that a neurological work-up would be needed and that would not be completed while admitted. IRVIN educated pt was O x 3 in nursing notes. Ghanshyam states there is a family history of dementia. Ghanshyam is concerned that they will loose the property and his house due to pt not being in his right mind and able to pay bills. 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 Ghanshyam reports that pt house is not safe, as there is junk on couch, dog poo everywhere. Ghanshyam reports that it looks like a bomb went off. Ghanshyam reports that there are clear walkways in the home, but barely. Ghanshyam reports that pt has been mean & yells all the time following stroke. IRVIN educated on APS in the community; Ghanshyam reports that they are the ones who told him to call SW and ask for neuro work up and to help having pt complete POA, as well as working on placement. Ghanshyam reports that he does not want dad to have [place] [facility] placement, just for a month or two to get help. IRVIN offered that RNCM will follow up after seeing pt tomorrow, having therapy evals, and speaking with hospitalist. Ghanshyam can be reached at [phone]. IRVIN remains available to follow. SENIA Rodriguez
[2025-11-07] MEDS: Lactated Ringers 1,000 ML 15 ML IV (18:15)
--- NOTE | 2025-11-07 18:23 | PRE.ANES_ITS ---
ASA Classification* ASA Classification ASA Classification: 3 and E Assessment & Plan Anesthesia* Anesthesia Assessment Anesthesia Assessment: Discussed sedation and/or anesthesia options, risks, benefits, and alternatives with patient/parents/legal guardian/POA. Questions invited. The patient/parents/legal guardian/POA seems to understand and agrees to proceed with anesthesia plan. Reviewed the physical assessment, medical history, allergy history and patient home medications list prior to surgery/procedure/anesthetic and documented any changes. Performed airway and anesthesia risk assessments. Anesthesia Type Anesthesia Type: General History Source History Obtained from:: Patient and Chart Anesthesia Focused Assessment* Temperature: 97.7 F Pulse Rate: 79 Blood Pressure: 148/87 Respiratory Rate: 18 Pulse Ox: 95 Oxygen Delivery Method: Nasal Cannula Oxygen Flow Rate (L/min): 2 Airway Assessment Mouth opens: >3 cm Mallampati Score: III Teeth Condition: Intact Neck Range of motion (ROM): Limited ROM (Slight Decrease) Labs Anesthesia Preop lab: CBC WBC, (4.4-11.0) 9.0 K/mm3 Today, 05:32 RBC, (4.6-6.2) 4.68 M/mm3 Today, 05:32 Hgb, (13.0-16.5) 14.5 g/dL Today, 05:32 Hct, (40-54) 43.1 % Today, 05:32 Plt Count, (150-450) 237 K/mm3 Today, 05:32 CHEMISTRY Potassium, (3.3-5.1) 4.5 mmol/L Today, 05:32 Sodium, (133-145) 134 mmol/L Today, 05:32 Magnesium, (1.6-2.6) 2.6 mg/dL 07/14/24, 05:51 Phosphorus, (2.5-4.9) 4.2 mg/dL 07/14/24, 05:51 BUN, (4-19) 13 mg/dL Today, 05:32 Creatinine, (0.70-1.20) 0.99 mg/dL Today, 05:32 Glucose, (70-99) 113 mg/dL H Today, 05:32 COAG PT, (11.7-14.9) 13.7 SECONDS Today, 05:32 Pre-Assessment Diagnosis/Proposed Procedure Planned Operative Procedure(s): Right hemiarthroplasty hip?anterior versus total hip anterior approach. 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 When Was Last Pacemaker Check QUESTION #4 FULL TEXT: You/Your Family Experience fever (hyperthermia) with Anesthesia Last Oral Intake Last Oral intake: Last Oral Intake NPO since :18 11/07/25 09:16 Meds taken in AM with sips of water? Meds patient instructed to oxyir- skelaxin- 11/07/25 09:16 take am of surgery morphine iv given at 1640 Any additional information?: Yes Meds taken in AM with sips of water?: Yes PONV PONV - plain clothes police officer: PONV - plain clothes police officer Female HX of Motion Sickness HX of N/V After Surgery Non-Smoker Duration of Surgery greater than 60 minutes Number of Risk Factors PONV Score Height & Weight Height & Weight: Anesthesia: Height & Weight Height 5 ft 6 in 11/07/25 10:50 Weight: 80.4 kg 11/07/25 10:50 Body Mass Index (BMI) 28.5 11/07/25 09:16 Respiratory Assessment Respiratory Assessment - plain clothes police officer: Respiratory Tract Infection Hx - plain clothes police officer Hx Respiratory Tract Infection No 11/07/25 08:53 STOP Sleep Apnea STOP Sleep Apnea - plain clothes police officer: STOP Sleep Apnea - plain clothes police officer Hx Hypertension No 11/06/25 18:36 Hx Sleep Apnea No 11/06/25 18:36 CPAP BIPAP Do you snore loudly (louder Yes 11/06/25 18:36 than talking or can be heard Do you often feel tired/ No 11/06/25 18:36 fatigued/ sleepy during daytime? Has anyone observed you stop No 11/06/25 18:36 breathing during sleep? STOP Results Negative 11/06/25 18:36 QUESTION #5 FULL TEXT : Do you snore loudly (louder than talking or can be heard through closed doors)? Tobacco Use History Tobacco Use History - plain clothes police officer: Tobacco Use History - plain clothes police officer Tobacco Use Cigarettes 08/05/24 11:00 Smoking Status Former smoker 11/06/25 18:36 Hx Tobacco Use No 11/06/25 18:36 Years Smoking Packs Smoked per Day Smoking Cessation Date was No - quit smoking greater 11/06/25 18:36 within the last 15 years than 15 years ago Hx Smoking Cessation Date 11/05/99 11/06/25 18:36 Hx Smoking Cessation No 11/06/25 18:36 Counseling Hematologic Medial History Hematologic Hx - plain clothes police officer: Hematologic Medical Hx - product ambassador Hx of Blood Transfusion Yes 11/06/25 18:36 Hx of Transfusion in last 3 No 11/06/25 18:36 Months Date of Last Transfusion (if within last 3 months) Ever experience any problems No 11/06/25 18:36 with transfusion(s)? Specify any problems Hx of Preganancy in last 3 N/A 11/06/25 18:36 Months Nurse Filling Out Transfusion RKALIRILEY 11/06/25 18:36 & Questions: Date: 11/06/25 11/06/25 18:36 Time: 18:38 11/06/25 18:36 Patient unable to answer at this time (ie. confused, unrespo /Reproduction History /Reproductive History - plain clothes police officer: /Reproductive Hx- plain clothes police officer Hx Now na 11/07/25 08:53 Gestational Age (in weeks): EDC: Hx Hx Para Hx Section SAB No 11/07/25 08:53 Does the father of the baby or his family experience fever w Father of the baby Malignant Hypertension history comment Active Medications Active Medications: Current Medications Generic Name Dose Route Start Last Admin Trade Name Freq PRN Reason Stop Dose Admin Acetaminophen 1,000 mg 11/06/25 22:00 11/07/25 16:30 Acetaminophen 500 Mg Tablet PO Not Given Q8 MIKE Atorvastatin Calcium 40 mg 11/06/25 22:00 11/06/25 21:35 Atorvastatin Calcium 40 Mg Tablet PO 40 mg QHS MIKE Administration Sodium Chloride 250 mls @ 15 mls/hr 11/06/25 19:28 IV .[id number] PRN Saline Flush Sodium Chloride 250 mls @ 15 mls/hr 11/06/25 19:28 IV .[id number] PRN Additional IVPB Infusion Sodium Chloride 1,000 mls @ 75 mls/hr 11/07/25 10:25 11/07/25 11:32 IV 75 mls/hr .[id number] MIKE Administration Lactated Ringer's 1,000 mls @ 15 mls/hr 11/07/25 18:15 IV .Q48H MIKE Melatonin 3 mg 11/06/25 18:35 11/06/25 23:41 Melatonin 3 Mg Tablet PO 3 mg QHS PRN PRN Administration INSOMNIA Metaxalone 400 mg 11/06/25 20:18 11/07/25 09:03 Metaxalone 800 Mg Tablet PO 400 mg TID PRN Administration MUSCLE SPASM Morphine Sulfate 2 mg 11/06/25 18:35 11/07/25 16:33 Morphine 2 Mg/Ml Syringe IV 2 mg Q3H PRN PRN Administration Pain Score 6-10 Ondansetron HCl 4 mg 11/06/25 18:35 11/07/25 09:11 Ondansetron 4 Mg/2 Ml Vial IV 4 mg Q8H PRN PRN Administration NAUSEA/VOMITING Oxycodone HCl 5 mg 11/06/25 18:35 11/07/25 09:10 Oxycodone 5 Mg Tablet PO 5 mg Q4H PRN PRN Administration Pain Score 4-10 Senna 1 tablet 11/06/25 22:00 11/07/25 08:48 Senna Tablet PO Not Given BID MIKE Sodium Chloride 10 - 40 ml 11/06/25 19:28 11/07/25 16:33 0.9% Saline Lock 10 Ml Syringe IV 20 ml UD PRN Administration SALINE FLUSH PFSH Medical History (Updated 11/07/25 @ 18:[address] Madhu Salazar MD) Excessive drinking alcohol CAD (coronary artery disease), [place] coronary artery Subsequent non-ST elevation (NSTEMI) myocardial infarction Ischemic cerebrovascular accident (CVA) PFO (patent foramen ovale) HTN (hypertension) HLD (hyperlipidemia) Tobacco dependence in remission Home Medications ?Medication ?Instructions ?Recorded ?Last Taken ?Type atorvastatin 40 mg tablet 40 mg PO QHS cholesterol 07/12/24 History Held on 11/06/25. Instructions: pt hasnt been taking clopidogrel 75 mg tablet (Plavix) 75 mg PO DAILY afib 07/13/24 Unknown History lisinopril 5 mg tablet 5 mg PO DAILY #1 TAB 4 Unknown Rx sertraline 50 mg tablet 50 mg PO DAILY PRN anxiety 1 01/07/25 Unknown History Allergy/AdvReac Type Severity Reaction Status Date / Time No Known Allergies Allergy Verified 11/06/25 15:29 Family History Mother Alzheimer's dementia Carotid stenosis + hx of CEA Surgical History (Updated 11/07/25 @ 18:[address] Madhu Salazar MD) S/P CABG x 3 History of tonsillectomy Social History household members: none housing: house number of children: 1 current occupational status: employed leisure activities: exercise Smoking Status: Former smoker Tobacco: How many years used: 8 how long ago did patient quit smoking: Smoked 1 pack/day x 8 years. Quit in 1998 alcohol intake: current alcohol intake frequency: 3 or more drinks per day Alcohol type: beer Previous attempts at quittin substance use type: does not use Review of Systems (Anesthesia) ROS Narrative System reviewed and no additional complaints, except as documented.
--- NOTE | 2025-11-07 18:48 | CONS.ORTHO ---
HPI Consult Data Date of Consult: 11/07/25 HPI Narrative Reason for Consultation: Right hip pain HPI Narrative: CISCO SAINI, is a 69 M who presents with right hip pain. Patient is a 69-year-old male with history of stroke last year. He was hospitalized and continues to have right-sided weakness. Patient notes he was walking outside and slipped on the ice yesterday. Had immediate right hip pain. Current hip pain is 10 out of 10 better with morphine and immobilization. With the recent dose of morphine his pain is now 4 out of 10. He denies any associated numbness and tingling distally. He lives at home and functions independently notes he takes care of his own ADLs. He has had weakness in the right side since his stroke reports a history of alcohol use and tobacco use. [facility] Medical History Excessive drinking alcohol CAD (coronary artery disease), jena coronary artery Subsequent non-ST elevation (NSTEMI) myocardial infarction Ischemic cerebrovascular accident (CVA) PFO (patent foramen ovale) HTN (hypertension) HLD (hyperlipidemia) Tobacco dependence in remission Home Medications ?Medication ?Instructions ?Recorded ?Last Taken ?Type atorvastatin 40 mg tablet 40 mg PO QHS cholesterol 07/13/24 07/12/24 History Held on 11/06/25. Instructions: pt hasnt been taking clopidogrel 75 mg tablet (Plavix) 75 mg PO DAILY afib 07/13/24 Unknown History lisinopril 5 mg tablet 5 mg PO DAILY #1 TAB 08/04/24 Unknown Rx sertraline 50 mg tablet 50 mg PO DAILY PRN anxiety 11/06/25 Unknown History Allergy/AdvReac Type Severity Reaction Status Date / Time No Known Allergies Allergy Verified 11/06/25 15:29 Family History Mother Alzheimer's dementia Carotid stenosis + hx of CEA Surgical History S/P CABG x 3 History of tonsillectomy Social History household members: none housing: house number of children: 1 current occupational status: employed leisure activities: exercise Smoking Status: Former smoker Tobacco: How many years used: 8 how long ago did patient quit smoking: Smoked 1 pack/day x 8 years. Quit in 1998 alcohol intake: current alcohol intake frequency: 3 or more drinks per day Alcohol type: beer Previous attempts at quittin substance use type: does not use ROS ROS Narrative 14 point review of systems outside of what is mentioned in the HPI is currently negative Vital Signs Vital Signs Vital Signs: 11/06/25 20:00 11/06/25 21:28 11/06/25 21:30 Temperature 98 F 98 F Temperature Source Oral Temporal Pulse Rate 94 91 Respiratory Rate 16 16 Respiratory Effort Normal Non-Labored Respiratory Depth Normal Respiratory Pattern Normal Blood Pressure 142/96 H 119/72 Blood Pressure Mean 111 87 Blood Pressure Source Monitor Monitor Blood Pressure Position Semi-Fowlers Semi-Fowlers Blood Pressure Location Right Arm Right Arm Pulse Ox 94 95 Oxygen Delivery Method Room Air Room Air Room Air Oxygen Flow Rate (L/min) 11/07/25 02:30 11/07/25 08:44 11/07/25 08:50 Temperature 97.8 F 98 F Temperature Source Oral Oral Pulse Rate 95 97 Respiratory Rate 16 17 Respiratory Effort Respiratory Depth Respiratory Pattern Blood Pressure 112/86 H 126/81 H Blood Pressure Mean 94 96 Blood Pressure Source Monitor Monitor Blood Pressure Position Semi-Fowlers Semi-Fowlers Blood Pressure Location Right Arm Right Arm Pulse Ox 94 95 Oxygen Delivery Method Room Air Room Air Room Air Oxygen Flow Rate (L/min) 11/07/25 08:56 11/07/25 09:16 11/07/25 14:28 Temperature 98 F 98 F Temperature Source Oral Oral Pulse Rate 97 89 Respiratory Rate 16 16 Respiratory Effort Normal Non-Labored Respiratory Depth Normal Respiratory Pattern Normal Blood Pressure 126/81 H 143/89 H Blood Pressure Mean 96 107 Blood Pressure Source Monitor Monitor Blood Pressure Position Semi-Fowlers Semi-Fowlers Blood Pressure Location Left Arm Right Arm Pulse Ox 95 97 Oxygen Delivery Method Nasal Cannula Nasal Cannula Room Air Oxygen Flow Rate (L/min) 2 2 11/07/25 14:37 11/07/25 16:27 11/07/25 18:11 Temperature 97.7 F L Temperature Source Oral Pulse Rate 85 79 Respiratory Rate 18 Respiratory Effort Normal Non-Labored Respiratory Depth Normal Respiratory Pattern Normal Blood Pressure 132/87 H 148/87 H Blood Pressure Mean 102 107 Blood Pressure Source Monitor Monitor Blood Pressure Position Semi-Fowlers Semi-Fowlers Blood Pressure Location Right Arm Right Arm Pulse Ox 96 95 Oxygen Delivery Method Nasal Cannula Nasal Cannula Nasal Cannula Oxygen Flow Rate (L/min) 2 2 2 11/07/25 18:32 Temperature 97.7 F L Temperature Source Pulse Rate 79 Respiratory Rate 18 Respiratory Effort Respiratory Depth Respiratory Pattern Blood Pressure 148/87 H Blood Pressure Mean Blood Pressure Source Blood Pressure Position Blood Pressure Location Pulse Ox 95 Oxygen Delivery Method Nasal Cannula Oxygen Flow Rate (L/min) 2 Weight Weight: 177 lb 4.026 oz Body Mass Index (BMI) 28.5 Physical Exam Const alert and oriented x3 General Appearance: cooperative HEENT normocephalic and head/scalp atraumatic Eyes PERRL Neck no JVD Resp normal respiratory effort Cardio Cardio Narrative: Regular pulses distally GI non-distended Extremity Extremity Narrative: Right lower extremity: Skin clean, dry, and intact. Limb is shortened and externally rotated Motor is intact dorsiflexion, EHL and plantar flexion. Sensation is intact to light touch saphenous, rojelio,l superficial peroneal, deep peroneal and tibial distributions. Calves are soft and supple. Skin Skin Narrative: Skin is intact on the right thigh Neuro CN's II-XII intact bilaterally and moves all extremities Neuro Narrative: Weakness and right lower extremity Psych affect normal Medical Records Data Attestation: I reviewed the patient's medical records Lab / Micro Data 11/07/25 05:32 11/07/25 05:32 Labs: Laboratory Results - last 24 hr 11/07/25 05:32: WBC 9.0, RBC 4.68, Hgb 14.5, Hct 43.1, MCV 92.1, MCH 31.0, MCHC 33.6, RDW Std Deviation 42.1, RDW Coeff of Nicole 12.4, Plt Count 237, MPV 10.1, PT 13.7, INR 1.0, Sodium 134, Potassium 4.5, Chloride 98, Carbon Dioxide 22.8, Anion Gap 13, BUN 13, Creatinine 0.99, Estim Creat Clear Calc 69.18, Est GFR (MDRD) Non-Af 82, BUN/Creatinine Ratio 12.8, Glucose 113 H, Calcium 8.9, Direct Bilirubin 0.26, Blood Type A POSITIVE, Antibody Screen NEGATIVE Imaging Right hip x-rays were independently reviewed Showing a displaced transcervical femoral neck Chest x-ray independently reviewed showing no acute fractures or bony lesions. Patient has previous fixation and wiring from CABG on sternum Cervical spine was independently reviewed as well as review of radiologist report no acute fractures or bony lesions. Multiple levels of degenerative disc disease loss of normal cervical lordosis Assessment & Plan Assessment/Plan (1) Fracture of femoral neck, right: PLAN: Natural history of the disease process and treatment options were discussed with the patient at bedside. Available treatment options were discussed the patient including percutaneous pinning, partial hip replacement and total replacement. Ultimately based on patient's age and medical comorbidities fracture pattern and radiographic findings I did recommend partial replacement as the most appropriate treatment method. Patient demonstrated understanding wish to proceed. Risk and benefits of the procedure were discussed the patient including but not limited to blood loss, DVTs, PEs, neurovascular damage, infection, the risk of anesthesia including loss of life. We also discussed fractures, leg length discrepancies and instability. Patient demonstrates understanding wishes to proceed. He was admitted to medicine overnight and found to be appropriate to proceed with surgery. Antibiotics were ordered on-call to the operating room.
[2025-11-07] MEDS: Lidocaine 1% (5 ml sdv) 5 ML Vial 3 ML IV (19:09)
[2025-11-07] MEDS: Cefazolin 1 GM/5 ML Vial 2 GM IV (19:25)
--- NOTE | 2025-11-07 20:05 | RAD_ITS ---
PROCEDURE: HIP MIN 2 VIEWS (PORTABLE) 11/07/2025 REASON FOR EXAM: ANTERIOR HIP TECHNIQUE: Procedure Code: RADH_P Modality: DX Procedure: HIP MIN 2 VIEWS (PORTABLE) Laterality: Right COMPARISON: Right hip, 11/06/2025 FINDINGS: 5 images were obtained intraoperatively with a C-arm during right total hip arthroplasty. Fluoro time: 2.6 seconds. Cumulative dose: 0.43 mGy. RAD/Hip Min 2 Views (Portable) IMPRESSION: As per findings. Reading Location: [place] [id number]
[2025-11-07] MEDS: TXA 2000mg in NS 100ml (Placed in Wound) OPERA.SITE (20:13)
[2025-11-07] MEDS: JPS (Morphine 10mg/ml) OPERA.SITE (20:19)
--- NOTE | 2025-11-07 20:24 | PCM.OPRPT ---
Operative Report (Standard) Operative Information Date of Procedure: 11/07/25 Pre-Operative Diagnosis: Right hip femoral neck fracture displaced Post-Operative Diagnosis: Right hip displaced femoral neck fracture Surgery/Procedure Performed: Direct anterior right hip hemiarthroplasty board setter: Yes Sign Painter Helper: Diamond [place] Tasks completed by waiter/waitress first class: Opening & closing, Implanting device and Retracting Additional insurance account assistant?: No Type of Anesthesia: General RN Documented Start/Stop Times: Operation Date: 11/07/25 16:30 Case Time Into Pre-Op 11/07/25 18:09 Anesthesia Start 11/07/25 19:05 Into Room 11/07/25 19:05 Procedure Start 11/07/25 19:34 Procedure End 11/07/25 20:43 Anesthesia End 11/07/25 20:59 Out of Room 11/07/25 20:59 Into Recovery 11/07/25 21:02 Out of Recovery 11/07/25 21:38 Procedure Start Time: 19:34 Procedure Stop Time: 20:43 Select all DRAINS/GRAFTS/IMPLANTS that apply: Prosthetic device Prosthetic device details: 1. Davion insignia femoral stem size 6 high offset 2. Davion 51 mm cobalt chromium Unitrax femoral head with -4 sleeve Special Medications: Ancef Estimated Blood Loss: 400 mL Fluids Replaced: 800 mL crystalloid Specimen collected: Yes Description of specimen(s) removed: Femoral neck fracture Description of surgery: Procedure: On the date of procedure the patient's R hip was marked in the preoperative area. Patient was then taken back to the operating room where anesthesia assumed control of the C-spine and airway and administered anesthetic. Patient was transferred to the operating table and placed in the supine position. The hips were placed the break of the bed and a bump was placed in the sacrum. The R lower extremity was then prepped out in a sterile fashion using chlorhexidine while the surgeon scrubbed. Upon reentering the room the R lower extremity was draped in the standard orthopedic fashion and the incision was marked. A timeout was called and everyone agreed upon the side, the site, the procedure be performed, antibody given, and patient's identity. At this time incision was made through skin, subcutaneous tissue, and fat down to fascia. The fascia was then incised and the TFL was retracted laterally. A retractor was placed on the lateral border of the femoral neck. Attention was directed to the inferior portion of the approach and all crossing vessels were identified and appropriately coagulated. A retractor was then placed on the medial portion of the femoral neck. The anterior capsule was then cleared of all soft tissue and then H shaped capsulotomy was made. The retractors were then placed inside the capsule. The femoral neck was identified and a cleanup cut was made. At this time a power corkscrew was used to remove the femoral head. The femoral head was measures and a 51 mm Unipolar component was selected. Soft tissue releases on the medial and lateral femoral neck were appropriately done, the leg was externally rotated and lateralized. A Paulino retractor was placed medially and proximally to the greater trochanter this allowed appropriate visualization and exposure of the femoral canal. Rongeour was then used to remove excess lateral bone. A canal finder and entry broach were used to open the proximal canal. Once we verified we were down the femoral canal we subsequently broached up to a size 6 femur. The appropriate neck was placed in the previously selected head was trialed with a -4mm neck. Traction was pulled and the hip was reduced with internal rotation. Once it was appropriately reduced and stability was checked. There was minimal shuck, equal leg lengths and appropriate stability with hyperextension and external rotation as well as with 90? flexion and internal rotation. Leg lengths were verified using medial malleoli. The trial components were then dislocated the proximal femur was again exposed and the components were removed from the wound. The final components were verified and opened. The wound was copiously irrigated out with dilute Betadine followed by chlorhexidine followed by a dilute TXA solution and finally with copious amounts of normal saline. The acetabulum was checked for any residual debris. The final components were placed and impacted. Traction and internal rotation were again used to reduce the hip. After adequate reduction the hip remained stable with appropriate leg lengths. The wound was then copiously irrigated with normal saline once more, and hemostasis was obtained. Closure was then done using #1 Vicryl runner to close the fascia. A 2-0 Vicryl runner was used to close the subcutaneous skin. A 3-0 barbed Monocryl and Steri-Strips were used for final skin closure. A Silverlon dressing was placed. Patient was awakened by anesthesia and transferred to the [facility]. Patient was then transferred to the PACU for recovery. Postoperative plan: Patient will get 24 hours postop antibiotics. Patient will get in-house physical therapy and will be weight-bear as tolerated. Patient will follow up in office in 2 weeks for a wound check and x-rays.For DVT prophylaxis recommend 81 mg aspirin twice daily Surgical Findings: Stable hip. Complications Complications: No Admit VTE Documentation VTE Present on Admission: No VTE Mechan Device Prophylaxis: SCD's and Thigh High GERALDINE Hose
[2025-11-07] MEDS: fentaNYL 100 MCG/2 ML Ampul IV (20:51)
--- NOTE | 2025-11-07 21:03 | PCM.POST.ANE ---
Anesthesia: Postop Eval I Current Vital Signs Temperature: 97.9 F Pulse Rate: 93 Blood Pressure: 150/92 Respiratory Rate: 16 Pulse Ox: 93 Oxygen Delivery Method: Nasal Cannula Oxygen Flow Rate (L/min): 3 Assessment Airway patent: Yes Spontaneous unlabored respirations: Yes Mental status: Asleep nausea: No Vomiting: No Anesthesia Complication: No Fluid Hydration Crystalloid volume administer (ml): 800 Total IV fluid infused: 800 Progress Note Anesthesia document: Postop Eval 1 completed: Yes
--- NOTE | 2025-11-07 21:19 | PCM.POSTANE2 ---
Anesthesia Postop Eval I Sum Postop Eval Completion status Anesthesia document: Postop Eval 1 completed: Yes Anesthesia Postop Eval I Summary Anesthesia Postop Eval I Summary: Anesthesia Postop Eval I: Assessment Summary Airway patent Yes 11/07/25 21:11 Spontaneous unlabored Yes 11/07/25 21:11 respirations Mental status Asleep 11/07/25 21:11 nausea No 11/07/25 21:11 Vomiting No 11/07/25 21:11 Anesthesia Postop Eval I: Fluid Summary Crystalloid volume administer 800 11/07/25 21:11 (ml) Colloids volume administered ( ml) Blood Product volume administered (ml) Total IV fluid infused 800 11/07/25 21:11 Anesthesia Postop Eval I: Summary Notes Anesthesia Complication No 11/07/25 21:11 Anesthesia Complication Comment: Post-operative progress note Anesthesia: Postop Eval II Evaluation Mental status: Awake and Calm Pain Level: 0 nausea: No Vomiting: No Complications Anesthesia Complication: No
[2025-11-08] VITALS (8 sets, daily range): BP systolic 112–151; BP diastolic 66–92; PULSE 80–96; RESP 16–18; TEMP 36.6–37.2; O2SAT 91–98
[2025-11-08] MEDS: Cefazolin 1 GM/50 ML BAG IV ×2 (04:17→12:58)
[2025-11-08 05:07] LABS: Hematocrit 44.4 % (40-54); Hemoglobin 15.0 g/dL (13.0-16.5); Immature Granulocytes Count 0.070 X10^3/uL (0.0-0.0); Mean Corp Hgb Conc 33.8 g/dL (32-36); Mean Corpuscular Volume 93.5 fL (80-94); Mean Platelet Vol. 10.1 fl (6.2-12.0); NRBC Flagged by Analyzer 0 % (0-5); Platelet Count 227 K/mm3 (150-450); RBC Distribution Width CV 12.1 % (11.6-14.6); RBC Distribution Width SD 41.5 fl (35.1-43.9); Red Blood Count 4.75 M/mm3 (4.6-6.2); White Blood Count 11.7 K/mm3 (4.4-11.0)
[2025-11-08 05:43] LABS: AST(SGOT) 26 U/L (<=37); Alanine Aminotransfer ALT/SGPT 18 U/L (<=46); Albumin, Serum 3.8 g/dL (3.4-4.8); Alkaline Phosphatase 88 U/L (40-129); Anion Gap 12 (5-15); BUN 14 mg/dL (4-19); BUN/Creat Ratio 13.1 RATIO (10-20); Bilirubin, Direct 0.28 mg/dL (0.00-0.30); Calcium,Total 8.6 mg/dL (7.6-11.0); Carbon Dioxide 22.6 mmol/L (21.0-32.0); Chloride 98 mmol/L (98-108); Estimated Creatinine Clearance 62.83 ml/min (50-250); Globulin 2.7 g/dL (2.2-4.2); Glucose 107 mg/dL (70-99); Potassium 4.9 mmol/L (3.3-5.1)
[2025-11-08] MEDS: 0.9% Normal Saline (1000mL) 1,000 ML 75 ML IV (08:20)
[2025-11-08] MEDS: Ensure Surgery 237 ML LIQUID PO ×3 (08:21→16:17)
[2025-11-08] MEDS: Senna/Docusate Sodium 1 Tablet 2 TABLET PO (08:21)
--- NOTE | 2025-11-08 10:55 | CASEMGMT ---
Addendum entered by Ovi Murphy 11/08/25 13:44: Call placed to pt's son, Renetta. He was notified [facility] accepted pt and will submit for insurance approval. Pt also made aware. Addendum entered by Ovi Murphy 11/08/25 13:38: Per Rosalie, they are able to accept pt on RU. She was made aware that per Dr Vargas pt should be medically ready to discharge tomorrow and that pre-cert can be started. Addendum entered by Ovi Murphy 11/08/25 12:45: [facility] to room. Pt sitting up in chair. He was made aware a referral has been sent to [facility]. Original Note: [facility] NOTE: Therapy notes reviewed. Message sent to Rosalie, [facility]/TCU nursing coordinator, and referral made for [facility] or TCU. She states will review for RU, but unable to review for TCU, d/t pt's insurance, Naman GO DGiauque ELIGIO SAAB CM
--- NOTE | 2025-11-08 11:03 | PN.HOSP_ITS ---
Reason for Visit Chief Complaint: Fall with right hip pain Subjective Subjective Saw patient at bedside this morning. Patient was sitting in bedside chair comfortably, conversing normally, in no acute distress. He had been moved from bed to the bedside chair with assistance from nursing staff this morning and had minimal right hip pain with this. Denies any numbness/tingling in the leg. Overall he feels better than he expected in the right hip from the discomfort standpoint. No other acute concerns this morning. Objective Data Objective Data Vital Signs: Vital Signs Temp Pulse Resp BP Pulse Ox O2 Del Method O2 Flow Rate 98.6 F 80 18 134/66 H 98 Room Air 2 11/08/25 09:00 11/08/25 09:00 11/08/25 09:00 11/08/25 09:00 11/08/25 09:00 11/08/25 09:00 11/08/25 07:13 Oxygen Flow Rate (L/min) 2 Oxygen Delivery Method Room Air Weight: 80.4 kg Body Mass Index (BMI) 28.5 Intake & Output: Intake and Output for Last 24 Hours 11/06/25 11/07/25 11/08/25 23:59 23:59 23:59 Intake Total 845.00 / 845.00 821.25 / 821.25 Output Total 1100 / 1100 Balance -255.00 / -255.00 821.25 / 821.25 Lab / Micro Data 11/08/25 04:33 11/08/25 04:33 Labs: Laboratory Results - last 24 hr 11/08/25 04:33: WBC 11.7 H, RBC 4.75, Hgb 15.0, Hct 44.4, MCV 93.5, MCH 31.6, MCHC 33.8, RDW Std Deviation 41.5, RDW Coeff of Nicole 12.1, Plt Count 227, MPV 10.1, Immature Gran % (Auto) 0.600, Neut % (Auto) 82.2 H, Lymph % (Auto) 9.5 L, Kingfisher % (Auto) 7.3, Eos % (Auto) 0.1, Baso % (Auto) 0.3, Absolute Neuts (auto) 9.6 H, Absolute Lymphs (auto) 1.11, Nucleated RBC % 0, Sodium 132 L, Potassium 4.9, Chloride 98, Carbon Dioxide 22.6, Anion Gap 12, BUN 14, Creatinine 1.09, Estim Creat Clear Calc 62.83, Est GFR (MDRD) Non-Af 73, BUN/Creatinine Ratio 13.1, Glucose 107 H, Calcium 8.6, Total Bilirubin 0.68, Direct Bilirubin 0.28, AST 26, ALT 18, Alkaline Phosphatase 88, Total Protein 6.5, Albumin 3.8, Globulin 2.7 Radiography Diagnostic Testing: Radiology Impression Hip X-Ray 11/07/25 20:05 IMPRESSION: As per findings. Reading Location: [place] [id number] Patient's Goals Of Care - F/U Goals Reviewed Goals of care reviewed with patient: NA-No significant change in clinical Status /major procedure scheduled Physical Exam Const alert, oriented x3, no apparent distress and average body habitus Constitutional Narrative: Elderly male, sitting up comfortably in bedside chair, conversing normally, in no acute distress. General Appearance: cooperative and comfortable HEENT normocephalic, head/scalp atraumatic, hearing grossly normal bilaterally, nasal mucous membranes and turbinates normal and moist oral mucous membranes Eyes PERRL, EOMs intact bilaterally and conjunctivae normal Neck full ROM Chest inspection of chest normal Resp normal respiratory effort, normal air movement, no use of accessory muscles and clear to auscultation bilaterally Cardio regular rate, regular rhythm, no murmurs and peripheral pulses 2+ throughout GI normal to inspection, nondistended, normoactive bowel sounds, soft to palpation, non-tender and non-distended Back/Spine normal ROM Extremity Extremity Narrative: Right hip with dressing and ice pack in place. Skin no rashes or lesions noted Psych mental status grossly normal Assessment & Plan Assessment/Plan (1) Fracture of femoral neck, right: PLAN: Plan Patient is a 69-year-old male who presented to [facility] ED on 11/06/2025 with right hip pain after a fall at home. 1. Right femoral fracture secondary to mechanical fall ? Orthopedic surgery following. PT/OT/case management following. Hip/pelvis x- ray showed an acute subcapital right femoral neck fracture. S/p direct anterior right hip hemiarthroplasty with Dr. Titus on 11/07. Patient tolerated procedure well, no intraoperative complications noted. Pain control with scheduled Tylenol, oxycodone as needed and IV morphine as needed. Patient lives at home alone. Patient has been accepted to rehab unit here, pre-CERT pending. Will likely be medically ready for discharge tomorrow. 2. History of CVA with residual right-sided deficits, history of CAD with CABG, hypertension, hyperlipidemia ? See HPI for further details. In short, patient had CVA with left acute infarction resulting in right-sided hemiparesis in June 2024. He has slowly regained right-sided functioning over the past several months. Had CABG x 3 at [facility] in September 2024 and has done well since then. Holding Plavix and lisinopril for now. Okay to continue home statin. 3. Suspected mild cognitive impairment ? Patient's son noted to case management that patient has had more difficulty managing on his own at home and the house is been in disarray for the past several months. Son also notes that patient has seemed more forgetful over that timeframe. Patient was alert and oriented x 3 on admission and has been answering questions appropriately. Suspect he may have some degree of cognitive impairment due to his CVA as above. No inpatient needs, will need formal outpatient testing done after discharge. 4. Anxiety/depression ? Patient reports taking sertraline only as needed for anxiety; states it makes him sleepy so he does not take it often. Educated patient that this medication is a daily medication so either needs to be taken every day or not at all. Holding sertraline while inpatient. 5. Former alcohol abuse and former tobacco abuse ? Encouraged continued cessation. DVT prophylaxis: Baby aspirin twice daily per orthopedics CODE STATUS: Full code, verified Expected disposition: Acute rehab, likely medically ready tomorrow Total clinical time spent by myself addressing the patient's medical issues, reviewing all the data, and collaborating with patient's care team: 37 minutes. Charges/Coding Visit Charges Inpatient E&M: 32796 Subs Hosp L2
--- NOTE | 2025-11-08 15:16 | PN.ORTHO_ITS ---
Subjective Subjective Patient is doing well. No acute events overnight. Denies any chest pain or shortness of breath. Denies calf pain. Patient reports thigh pain is significantly improved. He has participated in physical therapy. Plan is to go to transitional care unit he still some limitations in relation to his previous stroke which will likely delay his recovery. Objective Data Objective Data Vital Signs: Vital Signs Temp Pulse Resp BP Pulse Ox O2 Del Method O2 Flow Rate 98.6 F 80 18 134/66 H 98 Room Air 2 11/08/25 09:00 11/08/25 09:00 11/08/25 09:00 11/08/25 09:00 11/08/25 09:00 11/08/25 09:00 11/08/25 07:13 Oxygen Flow Rate (L/min) 2 Oxygen Delivery Method Room Air Weight: 177 lb 4.026 oz Body Mass Index (BMI) 28.5 Intake & Output: Intake and Output for Last 24 Hours 11/06/25 11/07/25 11/08/25 23:59 23:59 23:59 Intake Total 845.00 / 845.00 1370.00 / 1370.00 Output Total 1100 / 1100 Balance -255.00 / -255.00 1370.00 / 1370.00 Lab / Micro Data Attestation: I reviewed the patient's lab results. 11/08/25 04:33 11/08/25 04:33 Labs: Laboratory Results - last 24 hr 11/08/25 04:33: WBC 11.7 H, RBC 4.75, Hgb 15.0, Hct 44.4, MCV 93.5, MCH 31.6, MCHC 33.8, RDW Std Deviation 41.5, RDW Coeff of Nicole 12.1, Plt Count 227, MPV 10.1, Immature Gran % (Auto) 0.600, Neut % (Auto) 82.2 H, Lymph % (Auto) 9.5 L, [place] % (Auto) 7.3, Eos % (Auto) 0.1, Baso % (Auto) 0.3, Absolute Neuts (auto) 9.6 H, Absolute Lymphs (auto) 1.11, Nucleated RBC % 0, Sodium 132 L, Potassium 4.9, Chloride 98, Carbon Dioxide 22.6, Anion Gap 12, BUN 14, Creatinine 1.09, Estim Creat Clear Calc 62.83, Est GFR (MDRD) Non-Af 73, BUN/Creatinine Ratio 13.1, Glucose 107 H, Calcium 8.6, Total Bilirubin 0.68, Direct Bilirubin 0.28, AST 26, ALT 18, Alkaline Phosphatase 88, Total Protein 6.5, Albumin 3.8, Globulin 2.7 Radiography Diagnostic Testing: Radiology Impression Hip X-Ray 11/07/25 20:05 IMPRESSION: As per findings. Reading Location: [place] [id number] Physical Exam Const alert and oriented x3 Extremity Extremity Narrative: Right lower extremity: Dressing is clean dry and intact Sensations intact to light touch saphenous, sural, superficial peroneal, deep peroneal, and tibial distributions Motors intact EHL, DF, PF calves are soft and supple Assessment & Plan Assessment/Plan (1) Fracture of femoral neck, right: PLAN: Postop day 1 right hip hemiarthroplasty 1. DVT prophylaxis: Recommend 81 mg aspirin p.o. twice daily upon discharge for 4 weeks 2. Therapy: Weightbearing as tolerated, anterior hip precautions 3. Pain control: Per primary service doing well on oxycodone and Tylenol 4. Disposition: Patient is doing well from orthopedic standpoint will require additional assistance based on his limitations from his stroke likely need transitional care upon discharge prior to returning home. Patient should return to the office in 2 weeks for x-rays and wound check office number [phone]. Dressing should stay on for 5 days postoperatively remove after 5 days if clean and dry okay to leave it open to air. Okay to shower if dressing is intact and if wound is clean dry and intact upon removal of dressing in 5 days. Please call orthopedics with any further questions or concerns LEANDRO [facility] Office:
[2025-11-09 02:00] VITALS: BP 127/80; PULSE 89; RESP 16; TEMP 36.6; O2SAT 95
[2025-11-09 06:12] LABS: Hematocrit 37.3 % (40-54); Hemoglobin 12.5 g/dL (13.0-16.5); Mean Corp Hgb Conc 33.5 g/dL (32-36); Mean Corpuscular Volume 92.8 fL (80-94); Mean Platelet Vol. 10.1 fl (6.2-12.0); Platelet Count 168 K/mm3 (150-450); RBC Distribution Width CV 12.1 % (11.6-14.6); RBC Distribution Width SD 41.1 fl (35.1-43.9); Red Blood Count 4.02 M/mm3 (4.6-6.2); White Blood Count 9.2 K/mm3 (4.4-11.0)
[2025-11-09 06:57] LABS: Anion Gap 8 (5-15); BUN 11 mg/dL (4-19); BUN/Creat Ratio 12.6 RATIO (10-20); Calcium,Total 8.4 mg/dL (7.6-11.0); Carbon Dioxide 25.1 mmol/L (21.0-32.0); Chloride 100 mmol/L (98-108); Estimated Creatinine Clearance 77.82 ml/min (50-250); Glucose 146 mg/dL (70-99)
[2025-11-09 07:09] LABS: Potassium 3.9 mmol/L (3.3-5.1)
[2025-11-09 07:30] VITALS: O2SAT 90
[2025-11-09 09:33] VITALS: BP 99/69; PULSE 86; RESP 18; TEMP 36.5; O2SAT 93
[2025-11-09] MEDS: Ensure Surgery 237 ML LIQUID PO ×3 (09:35→17:04)
--- NOTE | 2025-11-09 12:09 | PCM.PN.HOSP ---
Reason for Visit Chief Complaint: Fall with right hip pain Subjective Subjective Saw patient at bedside this morning. Patient was sitting back comfortably in bed, in no acute distress. Reports feeling similar today to yesterday, right hip pain has been well-controlled. No other new concerns this morning. Objective Data Objective Data Vital Signs: Vital Signs Temp Pulse Resp BP Pulse Ox O2 Del Method O2 Flow Rate 97.7 F L 86 18 99/69 93 Room Air 2 11/09/25 09:33 11/09/25 09:33 11/09/25 09:33 11/09/25 09:33 11/09/25 09:33 11/09/25 09:37 11/09/25 02:00 Oxygen Flow Rate (L/min) 2 Oxygen Delivery Method Room Air Weight: 80.4 kg Body Mass Index (BMI) 28.5 Intake & Output: Intake and Output for Last 24 Hours 11/07/25 11/08/25 11/09/25 23:59 23:59 23:59 Intake Total 845.00 / 845.00 3070.00 / 3070.00 Output Total 1100 / 1100 850 / 850 300 / 300 Balance -255.00 / -255.00 2220.00 / 2220.00 -300 / -300 Lab / Micro Data 11/09/25 05:47 11/09/25 05:47 Labs: Laboratory Results - last 24 hr 11/09/25 05:47: WBC 9.2, RBC 4.02 L, Hgb 12.5 L, Hct 37.3 L, MCV 92.8, MCH 31.1, MCHC 33.5, RDW Std Deviation 41.1, RDW Coeff of Nicole 12.1, Plt Count 168, MPV 10.1, Sodium 134, Potassium 3.9, Chloride 100, Carbon Dioxide 25.1, Anion Gap 8, BUN 11, Creatinine 0.88, Estim Creat Clear Calc 77.82, Est GFR (MDRD) Non-Af 92, BUN/Creatinine Ratio 12.6, Glucose 146 H, Calcium 8.4 Patient's Goals Of Care - F/U Goals Reviewed Goals of care reviewed with patient: NA-No significant change in clinical Status /major procedure scheduled Physical Exam Const alert, oriented x3, no apparent distress and average body habitus Constitutional Narrative: Elderly male, sitting up comfortably in bedside chair, conversing normally, in no acute distress. General Appearance: cooperative and comfortable HEENT normocephalic, head/scalp atraumatic, hearing grossly normal bilaterally, nasal mucous membranes and turbinates normal and moist oral mucous membranes Eyes PERRL, EOMs intact bilaterally and conjunctivae normal Neck full ROM Chest inspection of chest normal Resp normal respiratory effort, normal air movement, no use of accessory muscles and clear to auscultation bilaterally Cardio regular rate, regular rhythm, no murmurs and peripheral pulses 2+ throughout GI normal to inspection, nondistended, normoactive bowel sounds, soft to palpation, non-tender and non-distended Back/Spine normal ROM Extremity Extremity Narrative: Right hip with dressing and ice pack in place. Skin no rashes or lesions noted Psych mental status grossly normal Assessment & Plan Assessment/Plan (1) Fracture of femoral neck, right: PLAN: Plan Patient is a 69-year-old male who presented to [facility] ED on 11/06/2025 with right hip pain after a fall at home. 1. Right femoral fracture secondary to mechanical fall ? Orthopedic surgery following. PT/OT/case management following. Hip/pelvis x-ray showed an acute subcapital right femoral neck fracture. S/p direct anterior right hip hemiarthroplasty with Dr. Titus on 11/07. Patient tolerated procedure well, no intraoperative complications noted. Pain control with scheduled Tylenol, oxycodone as needed and IV morphine as needed. Patient lives at home alone and needs placement on discharge. Has been accepted to rehab unit here. Medically ready for discharge on 11/09, awaiting pre-CERT. 2. History of CVA with residual right-sided deficits, history of CAD with CABG, hypertension, hyperlipidemia ? See HPI for further details. In short, patient had CVA with left acute infarction resulting in right-sided hemiparesis in June 2024. He has slowly regained right-sided functioning over the past several months. Had CAB[facility] x [facility] and has done well since then. BP is borderline low here, will continue to hold lisinopril for now. Will hold Plavix while patient is on aspirin twice daily for DVT prophylaxis. Okay to continue home statin. 3. Suspected mild cognitive impairment ? Patient's son noted to case management that patient has had more difficulty managing on his own at home and the house is been in disarray for the past several months. Son also notes that patient has seemed more forgetful over that timeframe. Patient was alert and oriented x 3 on admission and has been answering questions appropriately. Suspect he may have some degree of cognitive impairment due to his CVA as above. No inpatient needs, will need formal outpatient testing done after discharge. 4. Anxiety/depression ? Patient reports taking sertraline only as needed for anxiety; states it makes him sleepy so he does not take it often. Educated patient that this medication is a daily medication so either needs to be taken every day or not at all. Holding sertraline while inpatient. 5. Former alcohol abuse and former tobacco abuse ? Encouraged continued cessation. DVT prophylaxis: Baby aspirin twice daily per orthopedics CODE STATUS: Full code, verified Expected disposition: [facility] acute rehab, medically ready for discharge on 11/09, awaiting pre-CERT Total clinical time spent by myself addressing the patient's medical issues, reviewing all the data, and collaborating with patient's care team: 36 minutes. Charges/Coding Visit Charges Inpatient E&M: 49890 Subs Hosp L2
--- NOTE | 2025-11-09 15:09 | CASEMGMT ---
Discharge Planning A list of?SNF providers including quality and resource use data and consistent with the patient's preferred geographic region, medical needs, and insurance network was created in [employer] Guide.? This list was provided to the RN DEONNA. Franca Craig, Discharge Planning Asst.
[2025-11-09 15:18] VITALS: BP 120/73; PULSE 98; RESP 16; TEMP 36.9; O2SAT 94
--- NOTE | 2025-11-09 16:49 | CASEMGMT ---
Addendum entered by Ovi Murphy 11/09/25 17:30: Message received from Dr Vargas stating he will do [id number] tomorrow (Wednesday). Original Note: KAISER YING note: Message received from Rosalie, career development coordinator for [facility]. Insurance has denied pt for rehab, but are offering a [id number] @ [phone]. She states there is no need to schedule. Deadline is Wednesday 12p. Message sent to Dr Vargas via Backline, notifying him of same. Maria T DEL VALLE RN CM
[2025-11-09 21:03] VITALS: BP 124/83; PULSE 85; RESP 18; TEMP 36.7; O2SAT 93
[2025-11-09] MEDS: Senna/Docusate Sodium 1 Tablet 2 TABLET PO (21:06)
[2025-11-10 02:28] VITALS: BP 96/72; PULSE 81; RESP 18; TEMP 36.6; O2SAT 94
[2025-11-10 05:02] VITALS: BP 121/76; PULSE 80; RESP 18; TEMP 37.1; O2SAT 92
[2025-11-10 09:00] VITALS: BP 133/87; PULSE 84; RESP 18; TEMP 36.5; O2SAT 97
--- NOTE | 2025-11-10 10:19 | PCM.PN.HOSP ---
Reason for Visit Chief Complaint: Fall with right hip pain Subjective Subjective Saw patient at bedside this morning. Patient was sitting in bedside chair similar to previous days and in no acute distress. He has been utilizing oxycodone frequently and notes that he does have moderate pain in the hip with ambulation. He unfortunately was denied from our rehab unit but he is okay with pursuing SNF placement at another facility in the area. No other acute concerns this morning. Objective Data Objective Data Vital Signs: Vital Signs Temp Pulse Resp BP Pulse Ox O2 Del Method O2 Flow Rate 97.7 F L 84 18 133/87 H 97 Room Air 2 11/10/25 09:00 11/10/25 09:00 11/10/25 09:00 11/10/25 09:00 11/10/25 09:00 11/10/25 09:00 11/09/25 02:00 Oxygen Flow Rate (L/min) 2 Oxygen Delivery Method Room Air Weight: 80.4 kg Body Mass Index (BMI) 28.5 Intake & Output: Intake and Output for Last 24 Hours 11/08/25 11/09/25 11/10/25 23:59 23:59 23:59 Intake Total 3070.00 / 3070.00 Output Total 850 / 850 300 / 300 600 / 600 Balance 2220.00 / 2220.00 -300 / -300 -600 / -600 Lab / Micro Data 11/09/25 05:47 11/09/25 05:47 Patient's Goals Of Care - F/U Goals Reviewed Goals of care reviewed with patient: NA-No significant change in clinical Status /major procedure scheduled Physical Exam Const alert, oriented x3, no apparent distress and average body habitus Constitutional Narrative: Elderly male, sitting up comfortably in bedside chair, conversing normally, in no acute distress. General Appearance: cooperative and comfortable HEENT normocephalic, head/scalp atraumatic, hearing grossly normal bilaterally, nasal mucous membranes and turbinates normal and moist oral mucous membranes Eyes PERRL, EOMs intact bilaterally and conjunctivae normal Neck full ROM Chest inspection of chest normal Resp normal respiratory effort, normal air movement, no use of accessory muscles and clear to auscultation bilaterally Cardio regular rate, regular rhythm, no murmurs and peripheral pulses 2+ throughout GI normal to inspection, nondistended, normoactive bowel sounds, soft to palpation, non-tender and non-distended Back/Spine normal ROM Extremity Extremity Narrative: Right hip with dressing in place. Skin no rashes or lesions noted Psych mental status grossly normal Assessment & Plan Assessment/Plan (1) Fracture of femoral neck, right: PLAN: Plan Patient is a 69-year-old male who presented to [facility] ED on 11/06/2025 with right hip pain after a fall at home. 1. Right femoral fracture secondary to mechanical fall ? Orthopedic surgery following. PT/OT/case management following. Hip/pelvis x-ray showed an acute subcapital right femoral neck fracture. S/p direct anterior right hip hemiarthroplasty with Dr. Titus on 11/07. Patient tolerated procedure well, no intraoperative complications noted. Pain control with scheduled Tylenol, oxycodone as needed and IV morphine as needed. Patient lives at home alone and needs placement on discharge. Was initially accepted to rehab unit but then unfortunately insurance denied this, so now plan is for SNF placement elsewhere on discharge. Medically ready for discharge on 11/09, awaiting placement. 2. History of CVA with residual right-sided deficits, history of CAD with CABG, hypertension, hyperlipidemia ? See HPI for further details. In short, patient had CVA with left acute infarction resulting in right-sided hemiparesis in June 2024. He has slowly regained right-sided functioning over the past several months. Had CABG x 3 at [facility] in September 2024 and has done well since then. BP is borderline low here, will continue to hold lisinopril for now. Will hold Plavix while patient is on aspirin twice daily for DVT prophylaxis. Okay to continue home statin. 3. Suspected mild cognitive impairment ? Patient's son noted to case management that patient has had more difficulty managing on his own at home and the house is been in disarray for the past several months. Son also notes that patient has seemed more forgetful over that timeframe. Patient was alert and oriented x 3 on admission and has been answering questions appropriately. Suspect he may have some degree of cognitive impairment due to his CVA as above. No inpatient needs, will need formal outpatient testing done after discharge. 4. Anxiety/depression ? Patient reports taking sertraline only as needed for anxiety; states it makes him sleepy so he does not take it often. Educated patient that this medication is a daily medication so either needs to be taken every day or not at all. Holding sertraline while inpatient. 5. Former alcohol abuse and former tobacco abuse ? Encouraged continued cessation. DVT prophylaxis: Baby aspirin twice daily per orthopedics CODE STATUS: Full code, verified Expected disposition: SNF, medically ready for discharge in 11/09, awaiting placement Total clinical time spent by myself addressing the patient's medical issues, reviewing all the data, and collaborating with patient's care team: 37 minutes. Charges/Coding Visit Charges Inpatient E&M: 11611 Subs Hosp L2
--- NOTE | 2025-11-10 10:24 | CASEMGMT ---
Addendum entered by Sandra Simon 11/10/25 10:45: [facility] YING into pt room, pt has chosen [facility] as first choice followed by [facility]. [facility] YING sent referral to first choice via [facility] at this time. Original Note: Spoke with hospitalist who states peer to peer was unsuccessful. [facility] YING into pt room, pt is aware that he cannot go to the rehab unit. Provided pt with a list created by dc assistant manager retail of SNFs to review and requested he chose his top 3 preferences. KAISER YING to check back. Pt states he wants his family to transport him instead of using physician ambulance. K[facility]ER YING to check back on choices.
[2025-11-10] MEDS: Ensure Surgery 237 ML LIQUID PO ×2 (10:37→16:22)
[2025-11-10] MEDS: Senna/Docusate Sodium 1 Tablet 2 TABLET PO ×2 (10:37→21:52)
[2025-11-10 16:01] VITALS: BP 114/78; PULSE 86; RESP 18; TEMP 36.6; O2SAT 95
[2025-11-10 21:44] VITALS: BP 129/67; PULSE 96; RESP 15; TEMP 37.1; O2SAT 93
[2025-11-10 22:00] VITALS: RESP 16
[2025-11-11 04:00] VITALS: BP 116/88; PULSE 79; RESP 15; RESP 16; TEMP 36.8; O2SAT 92
[2025-11-11 05:26] LABS: Hematocrit 36.8 % (40-54); Hemoglobin 12.1 g/dL (13.0-16.5); Mean Corp Hgb Conc 32.9 g/dL (32-36); Mean Corpuscular Volume 93.6 fL (80-94); Mean Platelet Vol. 10.6 fl (6.2-12.0); Platelet Count 215 K/mm3 (150-450); RBC Distribution Width CV 12.4 % (11.6-14.6); RBC Distribution Width SD 43.2 fl (35.1-43.9); Red Blood Count 3.93 M/mm3 (4.6-6.2); White Blood Count 7.7 K/mm3 (4.4-11.0)
[2025-11-11 05:57] LABS: Anion Gap 9 (5-15); BUN 14 mg/dL (4-19); BUN/Creat Ratio 14.9 RATIO (10-20); Calcium,Total 8.7 mg/dL (7.6-11.0); Carbon Dioxide 25.1 mmol/L (21.0-32.0); Chloride 103 mmol/L (98-108); Estimated Creatinine Clearance 72.85 ml/min (50-250); Glucose 104 mg/dL (70-99); Potassium 4.2 mmol/L (3.3-5.1)
[2025-11-11] MEDS: Ensure Surgery 237 ML LIQUID PO ×3 (09:07→16:52)
[2025-11-11] MEDS: Senna/Docusate Sodium 1 Tablet 2 TABLET PO ×2 (09:08→21:05)
[2025-11-11 09:15] VITALS: BP 141/92; PULSE 89; RESP 18; TEMP 36.6; O2SAT 95
--- NOTE | 2025-11-11 09:55 | PN.HOSP_ITS ---
Reason for Visit Chief Complaint: Fall with right hip pain Subjective Subjective Saw patient at bedside this morning. Appeared similar today to previous days, sitting back comfortably in bed and in no acute distress. Does continue to have pain with weightbearing and ambulation. Continues to take oxycodone a few times daily. He has been passing gas but denies any abdominal discomfort. No other new concerns today. Objective Data Objective Data Vital Signs: Vital Signs Temp Pulse Resp BP Pulse Ox O2 Del Method O2 Flow Rate 97.9 F 89 18 141/92 H 95 Room Air 2 11/11/25 09:15 11/11/25 09:15 11/11/25 09:15 11/11/25 09:15 11/11/25 09:15 11/11/25 09:16 11/09/25 02:00 Oxygen Flow Rate (L/min) 2 Oxygen Delivery Method Room Air Weight: 80.4 kg Body Mass Index (BMI) 28.5 Intake & Output: Intake and Output for Last 24 Hours 11/09/25 11/10/25 11/11/25 23:59 23:59 23:59 Output Total 300 / 300 1600 / 2450 1360 / 1360 Balance -300 / -300 -1600 / -2450 -1360 / -1360 Lab / Micro Data 11/11/25 04:07 11/11/25 04:07 Labs: Laboratory Results - last 24 hr 11/11/25 04:07: WBC 7.7, RBC 3.93 L, Hgb 12.1 L, Hct 36.8 L, MCV 93.6, MCH 30.8, MCHC 32.9, RDW Std Deviation 43.2, RDW Coeff of Nicole 12.4, Plt Count 215, MPV 10.6, Sodium 137, Potassium 4.2, Chloride 103, Carbon Dioxide 25.1, Anion Gap 9, BUN 14, Creatinine 0.94, Estim Creat Clear Calc 72.85, Est GFR (MDRD) Non-Af 87, BUN/Creatinine Ratio 14.9, Glucose 104 H, Calcium 8.7 Patient's Goals Of Care - F/U Goals Reviewed Goals of care reviewed with patient: NA-No significant change in clinical Status /major procedure scheduled Physical Exam Const alert, oriented x3, no apparent distress and average body habitus Constitutional Narrative: Elderly male, sitting up comfortably in bedside chair, conversing normally, in no acute distress. General Appearance: cooperative and comfortable HEENT normocephalic, head/scalp atraumatic, hearing grossly normal bilaterally, nasal mucous membranes and turbinates normal and moist oral mucous membranes Eyes PERRL, EOMs intact bilaterally and conjunctivae normal Neck full ROM Chest inspection of chest normal Resp normal respiratory effort, normal air movement, no use of accessory muscles and clear to auscultation bilaterally Cardio regular rate, regular rhythm, no murmurs and peripheral pulses 2+ throughout GI normal to inspection, nondistended, normoactive bowel sounds, soft to palpation, non-tender and non-distended Back/Spine normal ROM Extremity Extremity Narrative: Right hip with dressing in place. Skin no rashes or lesions noted Psych mental status grossly normal Assessment & Plan Assessment/Plan (1) Fracture of femoral neck, right: PLAN: Plan Patient is a 69-year-old male who presented to [facility] ED on 11/06/2025 with right hip pain after a fall at home. 1. Right femoral fracture secondary to mechanical fall ? Orthopedic surgery following. PT/OT/case management following. Hip/pelvis x- ray showed an acute subcapital right femoral neck fracture. S/p direct anterior right hip hemiarthroplasty with Dr. Titus on 11/07. Patient tolerated procedure well, no intraoperative complications noted. Pain control with scheduled Tylenol and oxycodone as needed. Senna scheduled and MiraLAX as needed for bowel regimen. Patient lives at home alone and needs placement on discharge. Was initially accepted to rehab unit but then unfortunately insurance denied this, so now plan is for SNF placement elsewhere on discharge. Medically ready for discharge on 11/09, awaiting placement. 2. History of CVA with residual right-sided deficits, history of CAD with CABG, hypertension, hyperlipidemia ? See HPI for further details. In short, patient had CVA with left acute infarction resulting in right-sided hemiparesis in June 2024. He has slowly regained right-sided functioning over the past several months. Had CABG x [facility] and has done well since then. BP is borderline low here, will continue to hold lisinopril for now. Will hold Plavix while patient is on aspirin twice daily for DVT prophylaxis. Okay to continue home statin. 3. Suspected mild cognitive impairment ? Patient's son noted to case management that patient has had more difficulty managing on his own at home and the house is been in disarray for the past several months. Son also notes that patient has seemed more forgetful over that timeframe. Patient was alert and oriented x 3 on admission and has been answering questions appropriately. Suspect he may have some degree of cognitive impairment due to his CVA as above. No inpatient needs, will need formal outpatient testing done after discharge. 4. Anxiety/depression ? Patient reports taking sertraline only as needed for anxiety; states it makes him sleepy so he does not take it often. Educated patient that this medication is a daily medication so either needs to be taken every day or not at all. Holding sertraline while inpatient. 5. Former alcohol abuse and former tobacco abuse ? Encouraged continued cessation. DVT prophylaxis: Baby aspirin twice daily per orthopedics CODE STATUS: Full code, verified Expected disposition: SNF, medically ready for discharge in 11/09, awaiting placement Total clinical time spent by myself addressing the patient's medical issues, reviewing all the data, and collaborating with patient's care team: 35 minutes. Charges/Coding Visit Charges Inpatient E&M: 19270 Subs Hosp L2
[2025-11-11 14:38] VITALS: BP 137/78; PULSE 82; RESP 18; TEMP 36.6; O2SAT 95
[2025-11-11] MEDS: Polyethylene Glycol 3350 17 GM PACKET PO (14:38)
[2025-11-11 21:00] VITALS: BP 119/79; PULSE 87; RESP 15; TEMP 36.3; O2SAT 95
[2025-11-12 03:00] VITALS: BP 155/89; PULSE 87; RESP 15; TEMP 37.2; O2SAT 95
[2025-11-12 07:05] VITALS: O2SAT 95
[2025-11-12 08:45] VITALS: BP 144/94; PULSE 89; RESP 16; TEMP 36.4; O2SAT 95
[2025-11-12] MEDS: Senna/Docusate Sodium 1 Tablet PO ×2 (08:47→21:03)
[2025-11-12] MEDS: Ensure Surgery 237 ML LIQUID PO ×3 (08:47→17:30)
--- NOTE | 2025-11-12 09:49 | PCM.PN.HOSP ---
Reason for Visit Chief Complaint: Fall with right hip pain Subjective Subjective Saw patient at bedside this morning. Patient appeared similar today to previous days. No new concerns this morning. Objective Data Objective Data Vital Signs: Vital Signs Temp Pulse Resp BP Pulse Ox O2 Del Method O2 Flow Rate 97.5 F L 89 16 144/94 H 95 Room Air 2 11/12/25 08:45 11/12/25 08:45 11/12/25 08:45 11/12/25 08:45 11/12/25 08:45 11/12/25 08:45 11/09/25 02:00 Oxygen Flow Rate (L/min) 2 Oxygen Delivery Method Room Air Weight: 80.4 kg Body Mass Index (BMI) 28.5 Intake & Output: Intake and Output for Last 24 Hours 11/10/25 11/11/25 11/12/25 23:59 23:59 23:59 Output Total 1600 / 2450 1360 / 1860 500 / 500 Balance -1600 / -2450 -1360 / -1860 -500 / -500 Lab / Micro Data 11/11/25 04:07 11/11/25 04:07 Patient's Goals Of Care - F/U Goals Reviewed Goals of care reviewed with patient: NA-No significant change in clinical Status /major procedure scheduled Physical Exam Const alert, oriented x3, no apparent distress and average body habitus Constitutional Narrative: Elderly male, sitting up comfortably in bedside chair, conversing normally, in no acute distress. General Appearance: cooperative and comfortable HEENT normocephalic, head/scalp atraumatic, hearing grossly normal bilaterally, nasal mucous membranes and turbinates normal and moist oral mucous membranes Eyes PERRL, EOMs intact bilaterally and conjunctivae normal Neck full ROM Chest inspection of chest normal Resp normal respiratory effort, normal air movement, no use of accessory muscles and clear to auscultation bilaterally Cardio regular rate, regular rhythm, no murmurs and peripheral pulses 2+ throughout GI normal to inspection, nondistended, normoactive bowel sounds, soft to palpation, non-tender and non-distended Back/Spine normal ROM Extremity Extremity Narrative: Right hip with dressing in place. Skin no rashes or lesions noted Psych mental status grossly normal Assessment & Plan Assessment/Plan (1) Fracture of femoral neck, right: PLAN: Plan Patient is a 69-year-old male who presented to [facility] ED on 11/06/2025 with right hip pain after a fall at home. 1. Right femoral fracture secondary to mechanical fall ? Orthopedic surgery following. PT/OT/case management following. Hip/pelvis x-ray showed an acute subcapital right femoral neck fracture. S/p direct anterior right hip hemiarthroplasty with Dr. Titus on 11/07. Patient tolerated procedure well, no intraoperative complications noted. Pain control with scheduled Tylenol and oxycodone as needed. Senna scheduled and MiraLAX as needed for bowel regimen. Patient lives at home alone and needs placement on discharge. Was initially accepted to rehab unit but then unfortunately insurance denied this, so now plan is for SNF placement elsewhere on discharge. Medically ready for discharge on 11/09, awaiting placement. 2. History of CVA with residual right-sided deficits, history of CAD with CABG, hypertension, hyperlipidemia ? See HPI for further details. In short, patient had CVA with left acute infarction resulting in right-sided hemiparesis in June 2024. He has slowly regained right-sided functioning over the past several months. Had CABG x 3 at [facility] in September 2024 and has done well since then. BP is borderline low here, will continue to hold lisinopril for now. Will hold Plavix while patient is on aspirin twice daily for DVT prophylaxis. Okay to continue home statin. 3. Suspected mild cognitive impairment ? Patient's son noted to case management that patient has had more difficulty managing on his own at home and the house is been in disarray for the past several months. Son also notes that patient has seemed more forgetful over that timeframe. Patient was alert and oriented x 3 on admission and has been answering questions appropriately. Suspect he may have some degree of cognitive impairment due to his CVA as above. No inpatient needs, will need formal outpatient testing done after discharge. 4. Anxiety/depression ? Patient reports taking sertraline only as needed for anxiety; states it makes him sleepy so he does not take it often. Educated patient that this medication is a daily medication so either needs to be taken every day or not at all. Holding sertraline while inpatient. 5. Former alcohol abuse and former tobacco abuse ? Encouraged continued cessation. DVT prophylaxis: Baby aspirin twice daily per orthopedics CODE STATUS: Full code, verified Expected disposition: SNF, medically ready for discharge in 11/09, awaiting placement Total clinical time spent by myself addressing the patient's medical issues, reviewing all the data, and collaborating with patient's care team: 26 minutes. Charges/Coding Visit Charges Inpatient E&M: 96543 [facility] Hosp L1
--- NOTE | 2025-11-12 10:30 | CASEMGMT ---
Pt was declined by [facility], requested dc tmd teacher assistant make referral to [facility].
--- NOTE | 2025-11-12 13:11 | CASEMGMT ---
Discharge Planning Call placed to [facility] prior to faxing referral. At this time, they have no beds. RN CM updated. Franca Craig DC Planning Asst.
[2025-11-12 14:01] VITALS: BP 139/89; PULSE 98; RESP 16; TEMP 36.5; O2SAT 94
--- NOTE | 2025-11-12 15:39 | CASEMGMT ---
Addendum entered by Franca Craig 11/12/25 16:22: [facility] declined d/t no beds. [facility] has accepted and will submit for precert. Backline sent to [facility]. Original Note: Discharge Planning Delivered new snf list to pt. Referral sent via CarePort to [facility] and [facility] per pt request. [facility] updated. Franca Craig DC Planning Asst.
[2025-11-12 19:51] VITALS: BP 150/90; PULSE 99; RESP 15; TEMP 36.6; O2SAT 94
[2025-11-13 01:30] VITALS: BP 135/85; PULSE 93; RESP 15; TEMP 37.2; O2SAT 95
[2025-11-13 03:00] VITALS: O2SAT 95
[2025-11-13 05:23] LABS: Hematocrit 37.4 % (40-54); Hemoglobin 12.5 g/dL (13.0-16.5); Mean Corp Hgb Conc 33.4 g/dL (32-36); Mean Corpuscular Volume 92.8 fL (80-94); Mean Platelet Vol. 10.0 fl (6.2-12.0); Platelet Count 287 K/mm3 (150-450); RBC Distribution Width CV 12.5 % (11.6-14.6); RBC Distribution Width SD 42.8 fl (35.1-43.9); Red Blood Count 4.03 M/mm3 (4.6-6.2); White Blood Count 7.9 K/mm3 (4.4-11.0)
[2025-11-13 06:27] LABS: Anion Gap 11 (7-18); BUN 18 mg/dL (4-19); BUN/Creat Ratio 19.4 RATIO (10-20); Calcium,Total 8.9 mg/dL (7.6-11.0); Carbon Dioxide 23.5 mmol/L (20.0-29.0); Chloride 104 mmol/L (96-106); Estimated Creatinine Clearance 75.26 ml/min (50-250); Glucose 113 mg/dL (70-99); Potassium 4.1 mmol/L (3.5-5.1)
[2025-11-13 08:00] VITALS: BP 141/92; PULSE 78; RESP 18; TEMP 36.6; O2SAT 97
[2025-11-13] MEDS: Ensure Surgery 237 ML LIQUID PO ×3 (09:18→17:00)
--- NOTE | 2025-11-13 12:38 | CASEMGMT ---
[facility] into pt room, pt sitting up in chair eating lunch. Pt is aware that [facility] has accepted and that we are awaiting authorization from insurance. Asked pt if he is still having family transport him to the facility, pt states he will work on this today. He is aware that once auth is received, he will dc same day. Pt unable to list person who will transport him. He states he received a bill last time to be transported to the SNF from the hospital and does not want to get another bill. He is aware to be working on transport then. [facility] will need to confirm he was able to obtain transport.
--- NOTE | 2025-11-13 12:48 | CASEMGMT ---
Social Work- SW met with pt to conduct BIMS assessment and discuss directives. SW introduced self and role; pt agreeable to meet. Pt was seated in chair and presented as pleasant and cooperative in demeanor, often making jokes in conversation. Pt was observed by SW to have appropriate affect, normal speech, good judgement and insight. In conversation, pt was observed to easily recall details of recent events and also events from 1+ year ago. Pt scored 14/15 on BIMS assessment. Pt does not wish to complete HCPOA at this time. Pt reports that he had DPA prior NOT HCPOA and reports that he revoked it from son. SW provided education on legal hierarchy of decision-making in the event that pt would be unable to make medical decisions for himself. SW educated that his son would legally be the medical decision-maker in the absence of the document; pt did not object. SW offered that if pt wishes to complete document at any point, pt can ask for SW. Pt indicated that he would follow up with his contract attorney following d/c to look at re-doing DPA. 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 Pt reports that his son and DIL live in pt's extra home on the farm. Pt reports that he plans to sell his home (not on the land) to put towards the mortgage that he took out to buy his sisters' portion of the homestead. 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 Pt showed innate knowledge of finances and practical affairs. SW remains available to follow for any additional needs. SENIA Rodriguez
[2025-11-13 14:20] VITALS: BP 148/77; PULSE 99; RESP 18; TEMP 36.4; O2SAT 94
--- NOTE | 2025-11-13 16:15 | PCM.PN.HOSP ---
Reason for Visit Chief Complaint: Fall with right hip pain Subjective Subjective Patient states his pain is well-controlled with just Tylenol. It does not appear that he is using any as needed narcotics. Did have some constipation that this has since resolved with treatment. No acute issues at this time. Awaiting insurance approval. Objective Data Objective Data Vital Signs: Vital Signs Temp Pulse Resp BP Pulse Ox O2 Del Method O2 Flow Rate 97.5 F L 99 18 148/77 H 94 Room Air 2 11/13/25 14:20 11/13/25 14:20 11/13/25 14:20 11/13/25 14:20 11/13/25 14:20 11/13/25 14:20 11/09/25 02:00 Oxygen Flow Rate (L/min) 2 Oxygen Delivery Method Room Air Weight: 80.4 kg Body Mass Index (BMI) 28.5 Intake & Output: Intake and Output for Last 24 Hours 11/11/25 11/12/25 11/13/25 23:59 23:59 23:59 Intake Total 1200 / 1200 Output Total 1360 / 1860 900 / 900 Balance -1360 / -1860 300 / 300 Lab / Micro Data 11/13/25 04:32 11/13/25 04:32 Labs: Laboratory Results - last 24 hr 11/13/25 04:32: WBC 7.9, RBC 4.03 L, Hgb 12.5 L, Hct 37.4 L, MCV 92.8, MCH 31.0, MCHC 33.4, RDW Std Deviation 42.8, RDW Coeff of Nicole 12.5, Plt Count 287, MPV 10.0, Sodium 139, Potassium 4.1, Chloride 104, Carbon Dioxide 23.5, Anion Gap 11, BUN 18, Creatinine 0.91, Estim Creat Clear Calc 75.26, Est GFR (MDRD) Non-Af 91, BUN/Creatinine Ratio 19.4, Glucose 113 H, Calcium 8.9 Physical Exam Const alert, oriented x3, no apparent distress, average body habitus, healthy appearing and well nourished Constitutional Narrative: Older, white male, sitting up in a chair at the bedside watching television, appears comfortable, nontoxic HEENT head/scalp atraumatic, moist oral mucous membranes and oropharynx normal Head and Scalp: normocephalic Resp normal respiratory effort, no retractions, no use of accessory muscles and clear to auscultation bilaterally Auscultation: Negative for rales, rhonchi or wheezes GI normal to inspection, nondistended, normoactive bowel sounds, soft to palpation and non-tender Psych affect normal Psych Narrative: Very pleasant, interacts appropriately Assessment & Plan Assessment/Plan (1) Fracture of femoral neck, right: PLAN: Plan Right femoral neck fracture secondary to mechanical fall - Postop day 6 with direct anterior right hip hemiarthroplasty - Patient doing well - Continue OT/PT - Awaiting pre-CERT for placement - Recommend DVT prophylaxis per orthopedic surgery with aspirin 81 mg p.o. twice daily x 4 weeks - Patient is weightbearing as tolerated - Anterior hip precautions - Continue Tylenol - Patient is not using oxycodone so we will likely not discharge him with this medication next-patient will need outpatient follow-up with Dr. Titus in 2 weeks for wound check and imaging - Postop dressing should stay in place for 5 days postoperatively and then remove after 5 days and clean and dry leaving it open to air - Okay for shower as long as dressing is intact prior to 5-day removal Chronic anemia - Baseline appears to be between 12 and 13 - Stable History of stroke with residual right-sided deficits - Restart Plavix - On aspirin as DVT prophylaxis for surgery but will discontinue after 4 weeks Essential hypertension - Restart home lisinopril Hyperlipidemia - Patient was restarted on atorvastatin on admission Depression - Restart sertraline daily History of alcohol abuse - Remote History of tobacco abuse Remote DVT prophylaxis - aspirin 81 mg p.o. twice daily - If patient not discharged tomorrow will initiate subcu enoxaparin until discharged CODE STATUS - Full code Charges/Coding Visit Charges Inpatient E&M: 47101 Subs Hosp L1 Date medically ready for discharge: 11/09/25 Reason for DC delay: Precert pending from insurance
[2025-11-13 21:27] VITALS: BP 128/82; PULSE 96; RESP 18; TEMP 36.6; O2SAT 95
[2025-11-13] MEDS: 0.9% Saline Lock 10 ML Syringe IV (21:29)
[2025-11-14 05:58] VITALS: BP 136/93; PULSE 78; RESP 18; TEMP 36.8; O2SAT 96
[2025-11-14 09:00] VITALS: BP 141/88; PULSE 88; RESP 18; TEMP 37; O2SAT 96
--- NOTE | 2025-11-14 09:00 | CASEMGMT ---
[facility] has obtained auth to admit. [facility] CM updated. Franca Craig DC Planning Asst.
[2025-11-14] MEDS: Senna/Docusate Sodium 1 Tablet PO (11:07)
--- NOTE | 2025-11-14 11:11 | PCM.TXEXTCAR ---
Diet Diet Order/Speech Therapy: INPATIENT Hospital Diet / Speech Therapy Order(s) 11/08/25 04:39 Diet: Regular - General Routine Orders/Code Status Suppository Frequency: Daily PRN Routine Lab Work: CBC (1 week) and BMP (1 week) Code Status: Full Code DC O2, CPAP, BIPAP needs Home O2 Discharge instructions: No Wound(s) BLE: Wound Type: Abrasion RIGHT HIP, ANTERIOR: Wound Type: Surgical Incision Suggestions for Active Care Change Position every (hours): 2 Hours to sit in a chair: 3 Times a day to sit in chair: 2 Therapies Weight Bearing: Weight bearing as tolerated Extremity Affected:: Right Lower Physical Therapy: Eval and Treat Occupational Therapy: Eval and Treat Problem/Diagnosis (1) Fracture of femoral neck, right: Status: Acute Code(s): S72.001A - Fracture of unspecified part of neck of right femur, initial encounter for closed fracture Allergies/Procedures Done in Hospital Allergies No Known Allergies Allergy (Verified 11/06/25 15:29) Procedures: - (CT brain/chest x-ray/hip and pelvic x-ray/cervical spine CT) Type of Care/Length of Stay Estimated LOS: Convalescent Care Less Than 30 days Type of Care Needed: Skilled Rehab Potential: Good Prognosis: Good Additional Orders/Day of Discharge Day of Discharge: 11/14/25 Dietary and Speech Recommendations Dietitian Recommendations/Changes: Continue liberal regular diet as ordered to help maximize po intake Continue ensure surgery w/ medpass - will no longer be indicated at time of discharge. Continue to follow and monitor for changes in pt nutritional status and need for additional rec. Follow Up Care Please follow up with your Primary Care Physician in: 1-2 weeks after discharge from alf facility Please Follow Up With: Benny Titus MD When: 2 weeks Discharge Plan Admission Admit Date/Time: 11/06/25 17:34 Attending Provider: Mary Smyth Primary Care Provider: Priyank Dia Consulting Providers: Benny Titus; Skip Vargas; Johanna Morales Discharge Orders/Prescriptions Prescriptions: No Action atorvastatin 40 mg tablet 40 mg PO QHS clopidogrel [Plavix] 75 mg tablet 75 mg PO DAILY lisinopril 5 mg Tablet 5 mg PO DAILY Qty: 1 0RF sertraline 50 mg Tablet 50 mg PO DAILY PRN (Reason: anxiety) Referrals / Follow Up: Gurvinder Ziegler MD [Non-Staff, [facility]] Priyank Dia NP-C [Primary Care Provider, [facility]]
--- NOTE | 2025-11-14 11:13 | PCM.DC.SUM ---
Providers Date of Admission: 11/06/25 Date of Discharge: 11/14/25 Primary Care Physician: Priyank Dia, SUZANNAC Consultations 11/06/25 18:35 Consult: Orthopedics Routine Consulting Provider: Benny Titus Reason for Consult: right femoral neck fracture EMERGENT Consult: No MD Notified: Yes Date Notified: 11/06/25 Time Notified: 17:38 Method of Notification: ED Physician Initiated Reason For Visit: FALL W/ RIGHT FEMORAL NECK FRACTURE Diagnosis Discharge Diagnosis (1) Fracture of femoral neck, right: Status: Acute Code(s): S72.001A - Fracture of unspecified part of neck of right femur, initial encounter for closed fracture Medications at Discharge Home Medications atorvastatin 40 mg tablet 40 mg PO QHS cholesterol 07/13/24 clopidogrel 75 mg tablet (Plavix) 75 mg PO DAILY afib 07/13/24 lisinopril 5 mg tablet 5 mg PO DAILY #1 TAB 08/04/24 sertraline 50 mg tablet 50 mg PO DAILY PRN anxiety 11/06/25 acetaminophen 500 mg tablet 1,000 mg (2 x 500 mg) PO Q8 #0 tabs 11/14/25 aspirin 81 mg chewable tablet 81 mg PO BIDCM #0 tabs 11/14/25 fluticasone propionate 50 mcg/actuation nasal spray,suspension 1 spray NASAL BID PRN ALLERGIES #0 grams 11/14/25 melatonin 3 mg tablet 3 mg PO QHS PRN PRN Insomnia #0 tabs 11/14/25 nut.tx.comp. immune systm,reg 0.08 gram-1.4 kcal/mL oral liquid (Ensure Surgery) 237 ml PO TIDCM #0 mL 11/14/25 sennosides 8.6 mg-docusate sodium 50 mg tablet (Stimulant Laxative Plus) 1 tab PO BID #0 tabs 11/14/25 Hospital Course Operations - (Right hip hemiarthroplasty) Procedures EKG and - (Brain CT/cervical spine CT/chest x-ray/hip and pelvic x-rays) Summary of Care Provided Minutes Spent on Discharge: 42 Hospital Course: Mr. Mckeon is a 69-year-old white male with previous history of right sided stroke with right-sided weakness earlier this year who presented to the emergency department at [facility] on 11/06/2025 status post of fall with resultant hip pain. Patient indicated he was walking back from his shop outside when he slipped and fell in the snow on his right side. He had immediate right-sided hip pain after the fall and was able to pull himself back inside and called EMS. They brought him to the emergency department and he was found to have an acute subcapital right femoral neck fracture. CT of the cervical spine and brain were unremarkable for acute findings. Chest x-ray was unremarkable. Vital signs were unremarkable at time of presentation. He had a mild leukocytosis with a white count of 12.8 and labs were otherwise benign. The case was discussed with orthopedic surgery on-call, Dr. Titus, and he was taken to the OR on 11/07/2025 at which time he had a right hip hemiarthroplasty performed. His Plavix was held at the time of admission and we were able to restart it prior to discharge after discussion with orthopedic surgery. Postoperatively he did extremely well. We were able to restart his antihypertensives as well as his Plavix on 11/13/2025. He was only needing Tylenol for pain control. He was doing quite well with physical and Occupational Therapy and they did recommend ongoing rehab services at the time of discharge. He chose [facility] for his preferred site for ongoing rehab and was accepted there with pre-CERT being obtained on 11/14/2025. Patient is continue aspirin 81 mg p.o. twice daily for 4 weeks postoperatively then may stop this. He is to continue his Plavix indefinitely. He was placed on Ensure post operatively for promotion of healing and has scheduled stool softeners/laxatives but can be transition to as needed if he is moving his bowels well. He is to follow-up with Dr. Titus in 2 weeks for postoperative imaging and wound check. He is weightbearing as tolerated with anterior hip precautions. His postoperative dressing is to remain intact for 5 days and may be removed and cleaned per discharge instructions. He will need to follow-up with his primary care physician within 1 to 2 weeks after discharge from skilled facility. Discharge diagnoses: Right femoral neck fracture status post mechanical fall Chronic anemia History of stroke with right-sided residual deficits Essential hypertension Hyperlipidemia CAD status post CABG Depression History of alcohol abuse History of tobacco abuse History of PFO Seasonal allergies with nasal congestion Physical Exam Const alert, oriented x3, no apparent distress, average body habitus, no limitations, healthy appearing and well nourished Constitutional Narrative: Older, white male, sitting up in a chair at the bedside watching television and eating breakfast, appears comfortable, nontoxic General Appearance: cooperative, comfortable, well kempt and well developed HEENT normocephalic, head/scalp atraumatic, hearing grossly normal bilaterally and moist oral mucous membranes Eyes conjunctivae normal Eyes Narrative: No scleral icterus Resp normal respiratory effort, normal air movement, no retractions, no use of accessory muscles and clear to auscultation bilaterally Auscultation: Negative for rales, rhonchi or wheezes Cardio regular rate, regular rhythm, S1 normal heart sound, S2 normal heart sound, no murmurs, no rub, no gallops and no clicks GI normal to inspection, nondistended, normoactive bowel sounds, soft to palpation and non-tender Extremity no clubbing, cyanosis or edema Extremity Narrative: Pedal and radial pulses are 2+ Skin no jaundice, no petechiae and no mottling Neuro moves all extremities and no sensory deficits noted Neuro Narrative: Mild residual right-sided weakness with mild residual right facial droop Speech: speech normal Psych mental status grossly normal and affect normal Psych Narrative: Very pleasant, interacts appropriately Weight / BMI Weight Weight: 80.4 kg Body Mass Index (BMI) 28.5 ABG / Lab / Microbiology Data 11/13/25 04:32 11/13/25 04:32 D/C Instructions DC O2, CPAP, BIPAP Needs Home O2 Discharge instructions: No Please Follow Up With: Benny Titus MD Patient's Goals Of Care - F/U Goals Reviewed Goals of care reviewed with patient: Yes - No change Meaningful Use Info Meaningful Use Meaningful Use Diagnoses (Choose all that apply): None applicable Discharge Plan Admission Admit Date/Time: 11/06/25 17:34 Primary Reason for Your Visit: Right hip pain Attending Provider: Mary Smyth Primary Care Provider: Priyank Dia Consulting Providers: Benny Titus; Skip Vargas; Johanna Morales Instructions Additional Instructions / Restrictions: 1. Patient to take aspirin 81 mg twice daily for 4 weeks postop and stop. This is for DVT prophylaxis postoperatively per orthopedic surgery's recommendations 2. Anterior hip precautions 3. Weightbearing as tolerated right lower extremity 4. Postop dressing should stay in place for 5 days postoperatively and then remove after 5 days and clean and dry leaving it open to air Discharge Orders/Prescriptions Prescriptions: New sennosides-docusate sodium [Stimulant Laxative Plus] 8.6-50 mg Tablet 1 tab PO BID Qty: 0 0RF melatonin 3 mg Tablet 3 mg PO QHS PRN PRN (Reason: Insomnia) Qty: 0 0RF acetaminophen 500 mg Tablet 1,000 mg PO Q8 Qty: 0 0RF aspirin 81 mg Tablet,Chewable 81 mg PO BIDCM Qty: 0 0RF Rx Instructions: Patient to take 81 mg twice daily for 4 weeks postop and stop fluticasone propionate 50 mcg/actuation [place],Suspension 1 spray NASAL BID PRN (Reason: ALLERGIES) Qty: 0 0RF Ensure Surgery 0.08-1.4 gram-kcal/mL Liquid 237 ml PO TIDCM Qty: 0 0RF Continued atorvastatin 40 mg tablet 40 mg PO QHS clopidogrel [Plavix] 75 mg tablet 75 mg PO DAILY lisinopril 5 mg Tablet 5 mg PO DAILY Qty: 1 0RF sertraline 50 mg Tablet 50 mg PO DAILY PRN (Reason: anxiety) Referrals / Follow Up: Gurvinder Ziegler MD [Non-Staff, Family Practice] - Within 1 Week Referral Note: After discharge from [facility] Benny Titus MD [Med Staff - Active Staff, [facility]] Referral Note: 2 weeks postoperatively Priyank Dia, TRACK LAYING EQUIPMENT OPERATOR-C [Primary Care Provider, Family Practice] Disposition Disposition (needs filled in before D/C Order can be placed): Half-Way Facility Charges/Coding Visit Charges Inpatient E&M: 78538 SNF Disch >30 Min
--- NOTE | 2025-11-14 12:16 | CASEMGMT ---
Patient has order for discharge. Precert obtained for [facility] skilled level of care. RN CM in to inquire if he would like family to transport, patient states that he would like CM to setup wheelchair van for at discharge. Patient had no further questions or concerns. RN DEONNA completed 7000. [facility] updated and provided DC Magnetic Tape Composer Operator with discharge paperwork and to complete DC, setup transport, and notified W, patient, and family.
--- NOTE | 2025-11-14 12:44 | CASEMGMT ---
Discharge Planning Discharge order, signed med list, and transport time sent via CarePort to [facility] with note that 7000 has been completed and available on HENs. Physicians will transport pt by wheelchair at 4:30p. Nursing, RN CM, pt, and his ex- (Pearl) updated. Franca Craig DC Planning Asst.
[2025-11-14 15:16] VITALS: BP 135/72; PULSE 97; RESP 18; TEMP 36.7; O2SAT 97
[2025-11-14] MEDS: Ensure Surgery 237 ML LIQUID PO (17:21)
[2025-11-14 18:00] VITALS: RESP 18
== END 2025-11-14 19:23 | disposition skilled nursing facility (03) | DRG 522 ==
LOC: ED 17:15 → MS3 17:59
PROVIDERS: Anesthesiology; Internal Medicine; Specialist; Admitting Provider Hospitalist; Emergency Provider Student in an Organized Health Care Education/Training Program; Visit Provider Internal Medicine
PROC: 0SRR01A Replacement of Right Hip Joint, Femoral Surface with Metal Synthetic Substitute, Uncemented, Open Approach (ICD-10-PCS; CPT 27284; principal; 2025-11-07 16:05)
DX: S72.001A Fracture of unspecified part of neck of right femur, initial encounter for closed fracture (principal); G81.91 Hemiplegia, unspecified affecting right dominant side; I10 Essential (primary) hypertension; F32.A Depression, unspecified; D64.9 Anemia, unspecified; E78.5 Hyperlipidemia, unspecified; I25.10 Atherosclerotic heart disease of native coronary artery without angina pectoris; G31.84 Mild cognitive impairment of uncertain or unknown etiology; J30.2 Other seasonal allergic rhinitis; I25.2 Old myocardial infarction; W00.9XXA Unspecified fall due to ice and snow, initial encounter; F41.9 Anxiety disorder, unspecified; Z96.641 Presence of right artificial hip joint; Z95.1 Presence of aortocoronary bypass graft; Z79.899 Other long term (current) drug therapy; Z79.02 Long term (current) use of antithrombotics/antiplatelets; Z87.891 Personal history of nicotine dependence
CPT/HCPCS: 36415; 70450; 71045; 72125; 73502; 76000; 80048; 80076; 82248; 85025; 85027; 85610; 86850; 86900; 86901; 88304; 88311; 93005; 94668; 97116; 97162; 97166; 97530; 97535; 99285; C1776; A4216; J2405